=== PATIENT | female | born 1955 | race Caucasian/White ===

== ENCOUNTER 2022-06-24 20:09 | Outpatient (CLI) | payer MEDICARE, SELFPAY | END 2022-06-24 23:59 | disposition home or self-care (01) | LOC: SL 20:09 | PROVIDERS: Visit Provider Nurse Practitioner Family | DX: G47.31 Primary central sleep apnea (principal); R40.0 Somnolence; R06.83 Snoring | CPT/HCPCS: 95811 ==

== ENCOUNTER → 2022-07-23 | Outpatient (CLI) | payer MEDICARE, OTHER, SELFPAY | END | disposition home or self-care (01) | PROVIDERS: Visit Provider Nurse Practitioner Acute Care | DX: G47.31 Primary central sleep apnea (principal) | CPT/HCPCS: 95811 ==

== ENCOUNTER → 2022-08-13 | Outpatient (CLI) | payer MEDICARE, OTHER, SELFPAY | END | disposition home or self-care (01) | LOC: SL 13:56 | PROVIDERS: Visit Provider Nurse Practitioner Acute Care | DX: G47.33 Obstructive sleep apnea (adult) (pediatric) (principal) ==

== ENCOUNTER 2022-08-17 07:58 | Emergency (ER) | payer MEDICARE, OTHER, SELFPAY ==
[2022-08-17 07:59] VITALS: BP 150/101; PULSE 84; RESP 16; TEMP 36.1; O2SAT 96; BMI 23.3
--- NOTE | 2022-08-17 08:09 | RAD_ITS ---
STUDY: X-RAY - UNILATERAL RIBS ( RIGHT ) WITH CHEST REASON FOR EXAM: Female, 66 years old. History of fall. TECHNIQUE - RIBS: 3 view(s) of the ribs. TECHNIQUE - CHEST: Single PA view of the chest. COMPARISON: None. FINDINGS - RIBS: Normal visualized ribs without a demonstrated fracture. FINDINGS - CHEST: Small left pleural effusion with left basilar infiltration and/or atelectasis. Blunting of the right costophrenic angle. Mild increased markings in the peripheral aspect of the right midlung suggestive of scarring. Sternal cerclage wires are present from a prior sternotomy. Prior mitral valve replacement. A left-sided dual-chamber pacemaker is seen. Normal mediastinum and chalo. Normal visualized pulmonary arteries. There is atherosclerotic calcification of the aortic arch with tortuosity. Normal visualized thoracic spine. Normal visualized ribs, clavicles, and shoulders. There is no demonstrated abnormality of the visualized soft tissue structures of the upper abdomen. RAD/Ribs Uni Min 3V w/PA Chest IMPRESSION: RIBS: Normal x-ray examination of the ribs. CHEST: Left pleural effusion with left basilar infiltration and/or atelectasis. Blunting of the right questioning angle. Mild increased markings in the peripheral aspect of the right midlung suggestive of scarring. Electronically Signed: Tyree Mejía MD at 8:46 EST ,
--- NOTE | 2022-08-17 08:09 | RAD_ITS ---
STUDY: X-RAY - LEFT CLAVICLE REASON FOR EXAM: Female, 66 years old. Pain following a fall. TECHNIQUE: 2 view(s) of the clavicle. COMPARISON: None. FINDINGS: Nondisplaced transverse fracture through the midportion of the left clavicle with overriding of the fracture fragments. Normal acromioclavicular articulation. Normal visualized sternoclavicular articulation. Normal visualized pulmonary apex. RAD/Clavicle IMPRESSION: Nondisplaced transverse fracture through the midportion of left clavicle with overriding of the fracture fragments. Electronically Signed: Tyree Mejía MD at 8:44 EST ,
--- NOTE | 2022-08-17 08:09 | RAD_ITS ---
STUDY: X-RAY - LEFT SHOULDER REASON FOR EXAM: Female, 66 years old. Left shoulder pain following a recent fall. TECHNIQUE: 4 view(s) of the shoulder. COMPARISON: None. FINDINGS: Normal glenohumeral articulation. Normal acromioclavicular joint. Normal acromion. Transverse fracture through the midportion of the left clavicle with overlying of the fracture fragments. Normal humeral head and visualized proximal humerus. The soft tissue structures are unremarkable. A left-sided dual-chamber pacemaker is seen. Prior CABG. RAD/Shoulder min 2 Views IMPRESSION: Transverse fracture through the midportion of left clavicle with overlying fracture fragments. Electronically Signed: Tyree Mejía MD at 8:43 EST ,
--- NOTE | 2022-08-17 08:10 | EDS_ITS ---
HPI History of Present Illness Chief Complaint: Fall Informant: patient Narrative Narrative: Patient had mechanical fall off a horse on Wednesday. Landed on her left shoulder. She states she lifted her head up for the fall and never hit her head. She is certain of this. She has no headache. She primarily has pain around the left shoulder. She has been wearing a sling that she used. She also has developed some soreness in the right chest wall. It is down low. Its more with twisting and moving. Of note, she checks her Coumadin at home. Its been running about 1.8-1.6. She has no numbness or tingling. No lower extremity symptoms. No neck pain. No headache. No nausea vomiting fevers or chills. [facility] Medical History (Updated 08/17/22 @ 13:[address] Jose Reeves MD) A-fib Hypertrophic cardiomyopathy Home Medications aspirin 81 mg chewable tablet (Rahul Chewable Low Dose Aspirin) 81 mg PO DAILY 07/08/22 [History Last Taken Unknown] furosemide 40 mg tablet (Lasix) 40 mg PO BID 07/08/22 [History Last Taken Unknown] methimazole 5 mg tablet 2.5 mg PO .COMPLEX 07/08/22 [History Last Taken Unknown] metoprolol succinate 50 mg tablet,extended release 24 hr (Toprol XL) 50 mg PO DAILY 07/08/22 [History Last Taken Unknown] multivitamin 1 tab PO DAILY 07/08/22 [History Last Taken Unknown] pantoprazole 40 mg tablet,delayed release (Protonix) 40 mg PO DAILY 07/08/22 [History Last Taken Unknown] potassium chloride 10 mEq tablet,extended release(part/cryst) 10 meq PO DAILY 07/08/22 [History Last Taken Unknown] warfarin 5 mg tablet 5 mg PO DAILY 07/08/22 [History Last Taken Unknown] tramadol 50 mg tablet 50 mg PO Q6H PRN pain 3 days #10 tabs 08/17/22 [Rx Last Taken Unknown] Allergy/AdvReac Type Severity Reaction Status Date / Time No Known Allergies Allergy Unverified 08/17/22 08:02 Social History Smoking Status: Unknown if ever smoked ROS ROS ED Constitutional Constitutional ED: Denies chills or fever(s) Eyes Eyes: Denies blurry vision or change in vision ENT ENT ED: Denies sore throat Cardiovascular Cardiovascular: Denies chest pain or palpitations Respiratory/Chest Respiratory/Chest: Reports other Details: Right low anterior rib pain. ; Denies cough or dyspnea Gastrointestinal Gastrointestinal: Denies nausea or vomiting Genitourinary Genitourinary ED: Denies hematuria Musculoskeletal Musculoskeletal: Reports arthralgias and other Details: See history of present illness peer Integumentary Denies Abrasions Neurologic Neurologic: Denies paresthesias or weakness Hematologic/Lymphatic Hematologic/Lymphatic: Reports easy bleeding and easy bruising Allergic/Immunologic Allergic/Immunologic ED: Denies urticaria EXAM Physical Exam Const Vital Signs: 08/17/22 07:59 08/17/22 08:07 08/17/22 12:00 Temperature 96.9 F L Temperature Source Temporal Pulse Rate 84 80 Respiratory Rate 16 16 Respiratory Effort Normal Non-Labored Respiratory Depth Normal Respiratory Pattern Normal Blood Pressure 150/101 H Blood Pressure Mean 117 Pulse Ox 96 Oxygen Delivery Method Room Air 08/17/22 14:08 Temperature Temperature Source Pulse Rate 60 Respiratory Rate 16 Respiratory Effort Respiratory Depth Respiratory Pattern Blood Pressure 124/82 H Blood Pressure Mean Pulse Ox 98 Oxygen Delivery Method Positive well nourished and well developed General Appearance ED: well developed and NAD HEENT atraumatic; Negative for trauma Eyes EOMs intact bilaterally Neck full ROM Neck Narrative: No cervical spinal tenderness. General: Negative for tenderness Chest Wall Chest Narrative: Patient has some contusions toward the left anterior shoulder and clavicle area which what is suspicious for a step-off at the mid clavicle. I do not feel any subcutaneous air. There is no tenting of the skin. I also do not feel any subcu air on the right lower rib cage but she does have tenderness there. It hurts a bit to move and take deep breaths. Resp normal respiratory effort and clear to auscultation bilaterally Resp Narrative: Lungs are clear. Cardio regular rhythm GI normal to inspection, nondistended, normoactive bowel sounds and non-tender Back/Spine normal to inspection and no thoracic nor lumbar tenderness Extremity Extremity Narrative: Contusion and bruising around left clavicle. Tenderness to the proximal left humerus also. No tenderness lower down in the arm. No tenderness to right arm or pain with legs. Her gait is normal. Neuro oriented x3 Sensorium / Orientation: alert Psych mental status grossly normal Skin Skin Narrative: Contusions as above MDM MDM MDM Narrative Medical decision making narrative: Patient's rib x-ray shoulder and clavicle looked at by me and read by radiology shows a mid clavicle fracture on the left. X-ray was consistent with may be some scarring and slight left pleural effusion versus atelectasis infiltrate. We discussed case with the patient. Her daughter was also contacted per her wishes. Daughter is concerned about pulmonary embolus because her INR has been a little low at 1.8. We did per proceed with CTA as requested. Happily, this did not show pulmonary embolus. Her INR is up a little bit at 1.9. CBC showed minimally low hemoglobin at 11 2 but normal white count. Electrolytes showed mild elevation of creatinine 1.38 but I have no old to compare to. CTA also showed signs of effusion on both sides. But the patient is not having hypoxia cough or fevers or elevated white count. These effusions could be a little bit from her HOCM as well as need for Lasix. She is on Lasix 40 twice a day. But she is not having symptoms related to this. There is no symptoms of pneumonia. I do not think antibiotics are needed. I think this can be followed. If she develops dyspnea we would pursue this more aggressively. We did try to call the patient's daughter again. But we did not get a pickup likely because she is working. Patient stated she would notify her daughter when she calls back. Lab Data Labs: Laboratory Results - last 24 hr 08/17/22 08/17/22 08/17/22 12:00 12:00 12:00 WBC 6.2 RBC 5.05 Hgb 11.2 L Hct 39.5 MCV 78.2 L MCH 22.2 L MCHC 28.4 L RDW Std Deviation 56.1 H RDW Coeff of Sona 20.7 H Plt Count 242 MPV 9.6 Immature Gran % (Auto) 0.500 Neut % (Auto) 63.7 Lymph % (Auto) 24.7 Alpine % (Auto) 10.0 Eos % (Auto) 0.6 Baso % (Auto) 0.5 Absolute Neuts (auto) 4.0 Absolute Lymphs (auto) 1.53 Nucleated RBC % 0 Anisocytosis 1+ PT 21.1 H INR 1.9 Sodium 138 Potassium 4.0 Chloride 103 Carbon Dioxide 26.0 Anion Gap 9 BUN 32 H Creatinine 1.38 H Estim Creat Clear Calc 35.60 Est GFR (MDRD) Af Amer 49 L Est GFR (MDRD) Non-Af 40 L BUN/Creatinine Ratio 23.2 H Glucose 101 Calcium 9.4 Radiography Diagnostic Testing: Clinical Impression(s) from Imaging Studies Clavicle X-Ray 08/17/22 08:09 IMPRESSION: Nondisplaced transverse fracture through the midportion of left clavicle with overriding of the fracture fragments. Electronically Signed: Tyree Mejía MD at 8:44 EST , Ribs w/Chest X-Ray 08/17/22 08:09 IMPRESSION: RIBS: Normal x-ray examination of the ribs. CHEST: Left pleural effusion with left basilar infiltration and/or atelectasis. Blunting of the right questioning angle. Mild increased markings in the peripheral aspect of the right midlung suggestive of scarring. Electronically Signed: Tyree Mejía MD at 8:46 EST Reading Location ID and State: [id number] / [employer] , Service support , Shoulder X-Ray 08/17/22 08:09 IMPRESSION: Transverse fracture through the midportion of left clavicle with overlying fracture fragments. Electronically Signed: Tyree Mejía MD at 8:43 EST , Chest CTA 08/17/22 11:49 IMPRESSION: No evidence of pulmonary embolism. Bilateral pleural effusions left greater than right with bibasilar infiltration and/or atelectasis is worse at the left lung base. Cardiomegaly. Enlargement of the left atrium. Electronically Signed: Tyree Mejía MD at 13:11 EST , EKG Initial EKG: Comments: EKG done for chest wall trauma read by me shows AV paced rhythm without ectopy. No acute abnormality is noted. No old for comparison. Discharge Plan Triage Chief Complaint: Fall ED Provider: Jose Reeves Dx/Rx/DC Orders Clinical Impression: Fracture of clavicle, left, closed, Fall from horse, Warfarin-induced coagulopathy, Pleural effusion Instructions: ED Fracture, Clavicle Prescriptions: New tramadol 50 mg tablet 50 mg PO Q6H PRN (Reason: pain) 3 Days Qty: 10 0RF No Action warfarin 5 mg tablet 5 mg PO DAILY methimazole 5 mg tablet 2.5 mg PO .COMPLEX Rx Instructions: 2.5 mg orally every other day; furosemide [Lasix] 40 mg tablet 40 mg PO BID metoprolol succinate [Toprol XL] 50 mg tablet extended release 24 hr 50 mg PO DAILY pantoprazole [Protonix] 40 mg tablet,delayed release (DR/EC) 40 mg PO DAILY aspirin [Rahul Chewable Aspirin] 81 mg tablet,chewable 81 mg PO DAILY potassium chloride 10 mEq tablet,ER particles/crystals 10 meq PO DAILY multivitamin Tablet 1 tab PO DAILY Primary Care Provider: Guero Allen Referrals: Guero Allen MD [Primary Care Provider] - 3-5 Days Berto Ortiz DO [Med Staff - Active Staff] - 1 Week Disposition Disposition: Home, Self Care Discharge Date/Time: 08/17/22 14:14
--- NOTE | 2022-08-17 11:49 | EKG12_ITS ---
Test Reason : FALL Blood Pressure : / mmHG Vent. Rate : 081 BPM Atrial Rate : 081 BPM P-R Int : 224 ms QRS Dur : 148 ms QT Int : 420 ms P-R-T Axes : 083 -43 099 degrees QTc Int : 487 ms AV dual-paced rhythm with prolonged AV conduction Biventricular pacemaker detected Abnormal ECG Confirmed by LESLIE ENRIQUEZ, ELENA ([id number]), proposal editor ALONZO MAK ([id number]) on 08/19/2022 8:49:58 AM Referred By: Confirmed By:ELENA NELSON MD
--- NOTE | 2022-08-17 11:49 | CT_ITS ---
STUDY: CTA CHEST REASON FOR EXAM: Female, 66 years old. Patient fell off a horse. Bilateral shoulder pain and rib cage pain. RADIATION DOSAGE (If Supplied By Facility): CTDIvol = ( 8.88 ) mGy, DLP = ( 186.40 ) mGycm TECHNIQUE: The examination was performed with the intravenous administration of IV 100mL Isovue-370. Post-processing of the angiographic images was performed, with multiplanar reformation and 3D reconstruction. Individualized dose optimization techniques were used for this CT. COMPARISON: None. FINDINGS: Normal enhancement of the main pulmonary artery and right and left pulmonary arteries. Normal enhancement of the bilateral peripheral pulmonary arteries. There is no demonstrated pulmonary embolism. Normal thoracic aorta and visualized great vessels. There is no demonstrated aortic dissection. Sternal cerclage wires and vascular clips are present from a prior sternotomy and coronary artery bypass graft procedure (CABG). A dual-chamber pacemaker is seen. There is cardiomegaly with enlargement of the left atrium. There are visualized mediastinal lymph nodes, which are within normal size limits, and with normal morphology. Normal hilar regions. Normal visualized trachea and bronchi. Bibasilar atelectasis and/or infiltrate worse at the left lung base. Mild increased markings in the peripheral aspect of the right upper lobe as well as in the right middle SUGGESTIVE of scarring. There are small bilateral pleural effusions left greater than right. Normal chest wall structures. Increased kyphosis. 50% loss of height of the T8 or T9 vertebrae. Normal visualized upper abdomen. CT/CTA Chest W/WO Contrast IMPRESSION: No evidence of pulmonary embolism. Bilateral pleural effusions left greater than right with bibasilar infiltration and/or atelectasis is worse at the left lung base. Cardiomegaly. Enlargement of the left atrium. Electronically Signed: Tyree Mejía MD at 13:11 EST ,
[2022-08-17 12:00] VITALS: PULSE 80; RESP 16
[2022-08-17 12:06] LABS: Absolute Lymphocyte Count 1.53 X10^3/uL (0.83-4.51); Basophil# 0.03 X10^3/uL; Basophil% 0.5 % (0-1); Eosinophil# 0.04 X10^3/uL; Eosinophils% 0.6 % (0-5); Hematocrit 39.5 % (37-47); Hemoglobin 11.2 g/dL (12.0-15.0); Lymphocyte # 1.53 X10^3/ul (0.83-4.51); Lymphocyte % 24.7 % (19-41); Mean Corp Hgb Conc 28.4 g/dL (32-36); Mean Corpuscular Hgb 22.2 pg (27.0-32.0); Mean Corpuscular Volume 78.2 fL (81-99); Mean Platelet Vol. 9.6 fl (6.2-12.0); Monocyte# 0.62 X10^3/uL; NRBC Flagged by Analyzer 0 % (0-5); Neutrophil # 3.95 X10^3/uL (2.7-7.7); Neutrophil % 63.7 % (47-70); POSITIVE MORPHOLOGY YES; Platelet Count 242 K/mm3 (150-450); RBC Distribution Width CV 20.7 % (11.6-14.6); RBC Distribution Width SD 56.1 fl (35.1-43.9); Red Blood Count 5.05 M/mm3 (4.2-5.4); White Blood Count 6.2 K/mm3 (4.4-11.0)
[2022-08-17 12:08] LABS: Differential Indicated SCAN CRITERIA MET
[2022-08-17 12:13] LABS: International Normalized Ratio 1.9; Prothrombin Time (Protime)PT. 21.1 SECONDS (11.7-14.9)
[2022-08-17 12:18] LABS: Anion Gap 9 (5-15); BUN 32 mg/dL (7-18); BUN/Creat Ratio 23.2 RATIO (10-20); Calcium,Total 9.4 mg/dL (8.5-10.1); Chloride 103 mmol/L (98-107); Creatinine, Serum 1.38 mg/dL (0.55-1.02); EST Glomerular Filtration Rate 40 mL/min (>60); Est Glom Filt Rate - Afr Amer 49 mL/min (>60); Glucose 101 mg/dL (74-106); Sodium Level 138 mmol/L (136-145)
[2022-08-17 12:33] LABS: Anisocytosis 1+
[2022-08-17 14:08] VITALS: BP 124/82; PULSE 60; RESP 16; O2SAT 98
== END 2022-08-17 14:14 | disposition home or self-care (01) ==
PROVIDERS: Emergency Provider Emergency Medicine; PCP Family Medicine; Visit Provider Emergency Medicine
DX: S42.022A Displaced fracture of shaft of left clavicle, initial encounter for closed fracture (principal); I42.2 Other hypertrophic cardiomyopathy; I48.91 Unspecified atrial fibrillation; J90 Pleural effusion, not elsewhere classified; Z79.01 Long term (current) use of anticoagulants; Z79.82 Long term (current) use of aspirin; Z79.899 Other long term (current) drug therapy; W01.0XXA Fall on same level from slipping, tripping and stumbling without subsequent striking against object, initial encounter
CPT/HCPCS: 71101; 71275; 73000; 73030; 80048; 85025; 85610; 93005; 99283; Q9967

== ENCOUNTER → 2022-08-27 | Outpatient (CLI) | payer MEDICARE, OTHER, SELFPAY | END | disposition home or self-care (01) | LOC: SL 10:38 | PROVIDERS: PCP Family Medicine; Visit Provider Family Medicine | DX: Z00.00 Encounter for general adult medical examination without abnormal findings (principal) ==

== ENCOUNTER 2022-09-20 16:35 | Inpatient (IN) | payer MEDICARE, OTHER, SELFPAY ==
[2022-09-20] VITALS (11 sets, daily range): BP systolic 116–129; BP diastolic 60–82; PULSE 79–83; RESP 18–30; TEMP 36.3–36.8; O2SAT 88–98; BMI 25.5; BMI 25.1
--- NOTE | 2022-09-20 16:59 | EKG12_ITS ---
Test Reason : CP Blood Pressure : / mmHG Vent. Rate : 082 BPM Atrial Rate : 080 BPM P-R Int : 000 ms QRS Dur : 144 ms QT Int : 454 ms P-R-T Axes : 000 -55 073 degrees QTc Int : 530 ms Ventricular-paced rhythm Biventricular pacemaker detected Abnormal ECG Confirmed by SERA ENRIQUEZ, JUSTIN ([id number]), video editor ALONZO MAK ([id number]) on 09/21/2022 1:58:59 PM Referred By: ELIZABETH Confirmed By:JUSTIN ZAMORA MD
--- NOTE | 2022-09-20 17:01 | EDS_ITS ---
HPI History of Present Illness Chief Complaint: Chest Pain Informant: patient and family Narrative Narrative: This patient presents with chest pain and a complex medical history of hypertrophic obstructive cardiomyopathy, intermittent A. fib, mechanical mitral heart valve, on Coumadin, prior surgery for left ventricular debulking, atrial scarring, electrophysiology trying to manage atrial fibrillation. She is on Coumadin and checks her levels at home. In mid August she had 3 weeks where her INR ran as low as 1.9. After Viola she finally got it to go up. It went up as high as about 7. It is now down to 4. There has been no external bleeding. Patient presents with right-sided chest pain. In the lateral low aspect since somewhere last night or throughout the night. It does hurt to breathe but it also hurts to lift her arms up move or twist. She has chronic dyspnea that they are trying to manage through medications and adjustment of her pacemaker. But the dyspnea is worse with this pain. Patient also had a fall last month where she had left clavicle fracture. But this is not the area where she is having most of her pain. This has been slowly healing. Patient denies any history of cardiovascular disease, bypass surgery, cardiac stents. Her heart disease has been related to hypertrophic obstructive cardiomyopathy and secondary complications. She sees Dr. Carolina melo at [place] in the [facility]. Patient's really not complaining of any other areas of pain or changes. There has been no new or secondary trauma recently. [facility] Medical History A-fib Collar bone fracture Hypertrophic cardiomyopathy Pacemaker Home Medications aspirin 81 mg chewable tablet (Rahul Chewable Low Dose Aspirin) 81 mg PO DAILY 07/08/22 [History Last Taken Unknown] furosemide 40 mg tablet (Lasix) 40 mg PO BID 07/08/22 [History Last Taken Unknow n] methimazole 5 mg tablet 2.5 mg PO .COMPLEX 07/08/22 [History Last Taken Unknown] metoprolol succinate 50 mg tablet,extended release 24 hr (Toprol XL) 50 mg PO DAILY 07/08/22 [History Last Taken Unknown] multivitamin 1 tab PO DAILY 07/08/22 [History Last Taken Unknown] pantoprazole 40 mg tablet,delayed release (Protonix) 40 mg PO DAILY 07/08/22 [History Last Taken Unknown] potassium chloride 10 mEq tablet,extended release(part/cryst) 10 meq PO DAILY 07/08/22 [History Last Taken Unknown] warfarin 5 mg tablet 5 mg PO DAILY 07/08/22 [History Last Taken Unknown] tramadol 50 mg tablet 50 mg PO Q6H PRN pain 3 days #10 tabs 08/17/22 [Rx Last Taken Unknown] Allergy/AdvReac Type Severity Reaction Status Date / Time No Known Allergies Allergy Unverified 09/20/22 16:35 Surgical History History of hysterectomy Status post spinal disc removal Social History Smoking Status: Former smoker ROS ROS ED Constitutional Constitutional ED: Denies chills or fever(s) Eyes Eyes: Denies change in vision ENT ENT ED: Reports rhinorrhea; Denies sore throat Cardiovascular Cardiovascular: Reports as per HPI and chest pain Respiratory/Chest Respiratory/Chest: Reports dyspnea; Denies cough Gastrointestinal Gastrointestinal: Denies diarrhea, melena, nausea or vomiting Genitourinary Genitourinary ED: Denies hematuria Musculoskeletal Musculoskeletal: Denies arthralgias or myalgias Integumentary Denies rash Neurologic Neurologic: Denies headache(s) Endocrine Endocrinology: Denies polydipsia or polyuria Hematologic/Lymphatic Hematologic/Lymphatic: Reports easy bleeding and easy bruising Allergic/Immunologic Allergic/Immunologic ED: Denies urticaria EXAM Physical Exam Const Vital Signs: 09/20/22 16:36 09/20/22 16:40 09/20/22 17:30 Temperature 97.3 F L Temperature Source Temporal Pulse Rate 80 79 Respiratory Rate 30 H 20 H Respiratory Effort Normal Non-Labored Blood Pressure 119/67 129/66 H Blood Pressure Mean 84 87 Pulse Ox 98 93 Oxygen Delivery Method Room Air Room Air Oxygen Flow Rate (L/min) 09/20/22 18:00 09/20/22 20:26 09/20/22 20:31 Temperature Temperature Source Pulse Rate 80 80 Respiratory Rate 25 H 20 H Respiratory Effort Blood Pressure 121/60 H 122/82 H Blood Pressure Mean 80 95 Pulse Ox 91 88 94 Oxygen Delivery Method Room Air Room Air Nasal Cannula Oxygen Flow Rate (L/min) 2 09/20/22 21:00 Temperature Temperature Source Pulse Rate 83 Respiratory Rate 28 H Respiratory Effort Blood Pressure 118/70 Blood Pressure Mean 86 Pulse Ox 98 Oxygen Delivery Method Nasal Cannula Oxygen Flow Rate (L/min) 2 Positive well nourished Constitutional Narrative: Patient does look like she has increased respiratory rate over her baseline. But she is tolerating this quite well and has saturations around 98 to 100% on room air showing no hypoxia. General Appearance ED: NAD HEENT Denies dry mucous membranes Mouth ED: No dry mucous membranes Mouth: No dry mucous membranes Eyes General Eye ED: Negative for scleral icterus Neck supple and No no JVD Neck Narrative: mild JVD Chest Wall Chest Narrative: Healing left clavicle fracture. She has some chest wall tenderness but she has more pain with motion or breathing then with palpation. I see no skin changes or vesicles. I see no bruising or swelling. Resp Resp Narrative: Respiratory effort and rate are slightly increased. Patient does have some decreased breath sounds toward the right base. There are a few rhonchi but no wheezes. I do not know if this is due to shallow breathing from pain or infiltrative process or bleeding. Auscultation: rhonchi; Negative for wheezes Cardio regular rate and regular rhythm Rate: other Other Details: Patient appears to be paced on the monitor. GI normal to inspection, nondistended, normoactive bowel sounds and soft to palpation Back/Spine no CVA tenderness and no thoracic nor lumbar tenderness Extremity normal to inspection Extremity Narrative: pt states edema is more than normal General Extremety ED: Yes edema General Extremity: edema Neuro oriented x3 Sensorium / Orientation: awake and alert Psych mental status grossly normal Skin no rashes or lesions noted and no wounds MDM MDM MDM Narrative Medical decision making narrative: My independent interpretation of the patient's single view chest x-ray shows bilateral effusions worse on the right. No pneumothorax. Radiology reading shows bilateral effusions with basilar consolidation. CTA of the chest shows no pulmonary embolus. There is sign of effusion congestive heart failure and consolidation in the right upper lobe area that may be inflammatory. Blood work shows minimal elevation of white count which is nonspecific. Hemoglobin minimally low at 10.5. This is not low enough to be causing her symptoms. This is just a very slight drop from her last level. Potassium is little low at 3.3. Creatinine minimally elevated at 1.2. Troponin was high at 1582. But patient has been having pain since yesterday and she has been having increased dyspnea for a few days. BNP was high at 1464. We have a repeat troponin that shows trending down. Her INR was therapeutic at 2.5. She had decreased breath sounds at the base and the effusions. We did do a CTA due to her complex history. Patient has history of reportedly lower INR is recently down to 1.9. Therefore, it is possible that she could have had a PE now causing symptoms or infarct. She also had a very high INR at over 7 so she could have bleeding. For this reason we did do CT. This is looking more like congestive heart failure. There may be inflammatory consolidation but she is not having fevers chills significant cough. She has a minimal elevation of her white count. With her increased edema, elevated BNP, effusions we will give Lasix here. She desatted to 88% sitting in bed so we have her on 2 L now. I have discussed the case with both net maker and our hospitalist. We have reviewed all of the above information. Patient will be admitted. Lab Data Attestation: I reviewed the patient's lab results. Labs: Laboratory Results - last 24 hr 09/20/22 09/20/22 09/20/22 16:35 16:35 16:35 WBC 12.8 H RBC 4.80 Hgb 10.5 L Hct 37.2 MCV 77.5 L MCH 21.9 L MCHC 28.2 L RDW Std Deviation 56.7 H RDW Coeff of Sona 21.1 H Plt Count 237 MPV 9.2 Immature Gran % (Auto) 0.500 Neut % (Auto) 74.1 H Lymph % (Auto) 8.9 L [place] % (Auto) 16.1 H Eos % (Auto) 0.2 Baso % (Auto) 0.2 Absolute Neuts (auto) 9.5 H Absolute Lymphs (auto) 1.13 Nucleated RBC % 0 Differential Comment SCANNED PT INR Sodium 140 Potassium 3.3 L Chloride 106 Carbon Dioxide 26.0 Anion Gap 8 BUN 25 H Creatinine 1.20 H Estim Creat Clear Calc 40.94 Est GFR (MDRD) Af Amer 58 L Est GFR (MDRD) Non-Af 48 L BUN/Creatinine Ratio 20.8 H Glucose 154 H Calcium 8.9 Troponin I High Sens 1582 H* B-Natriuretic Peptide 1464.0 H 09/20/22 09/20/22 16:35 20:00 WBC RBC Hgb Hct MCV MCH MCHC RDW Std Deviation RDW Coeff of Sona Plt Count MPV Immature Gran % (Auto) Neut % (Auto) Lymph % (Auto) [place] % (Auto) Eos % (Auto) Baso % (Auto) Absolute Neuts (auto) Absolute Lymphs (auto) Nucleated RBC % Differential Comment PT 27.1 H INR 2.5 Sodium Potassium Chloride Carbon Dioxide Anion Gap BUN Creatinine Estim Creat Clear Calc Est GFR (MDRD) Af Amer Est GFR (MDRD) Non-Af BUN/Creatinine Ratio Glucose Calcium Troponin I High Sens 1535 H* B-Natriuretic Peptide Radiography Diagnostic Testing: Clinical Impression(s) from Imaging Studies Chest X-Ray 09/20/22 17:06 IMPRESSION: Bilateral pleural effusions larger right with bibasilar consolidation. Electronically Signed: Star Marrero MD at 17:53 EST , Chest CTA 09/20/22 18:57 IMPRESSION: Findings consistent with chronic interstitial changes and superimposed pulmonary interstitial edema with moderate size bilateral pleural effusions and mild bibasilar atelectasis. There is focal consolidation in the right upper lobe possibly inflammatory.. No evidence for pulmonary embolus Electronically Signed: Star Marrero MD at 20:15 EST , EKG Initial EKG: Comments: My independent interpretation was done of the her EKG done for indication of chest pain. This was compared to prior of 17 August 2022. Her EKG shows a paced rhythm with overall rate of 82. I do see 1 PVC. There is some irregular baseline possibly from motion. There are secondary changes related to pacer and bundle branch block but no sign of acute ST elevation. QRS duration and QTc are both long. EKG is similar to her prior as compared. Discharge Plan Dx/Rx/DC Orders Clinical Impression: Congestive heart failure, Non-ST elevation [place] (NSTEMI), Hypoxia, Warfarin- induced coagulopathy Disposition Disposition: Acute Care Hospital [facility]
--- NOTE | 2022-09-20 17:06 | RAD_ITS ---
INDICATION: chest pain EXAMINATION/TECHNIQUE: X-RAY - XR Chest 1 View COMPARISON: None. FINDINGS: Postop change status post median sternotomy and aortic valve replacement. LINES/DEVICES: Biventricular pacer noted on the left with electrodes in satisfactory position. LUNGS: There are bilateral pleural effusions larger on the right and bibasilar consolidation. No pneumothorax. MEDIASTINUM AND CARDIOVASCULAR STRUCTURES: Cardiac silhouette not enlarged. Central airways and mediastinal contour are unremarkable. BONES AND SOFT TISSUES: There is fracture of the medial left clavicle with overlapping of fracture fragments RAD/Chest 1 View (Portable) IMPRESSION: Bilateral pleural effusions larger right with bibasilar consolidation. Electronically Signed: Star Marrero MD at 17:53 EST ,
[2022-09-20] MEDS: traMADol 50 MG Tablet PO (17:07)
[2022-09-20 17:12] LABS: Absolute Lymphocyte Count 1.13 X10^3/uL (0.83-4.51); Absolute Neutrophil Count 9.5 X10^3/uL (2.0-7.7); Basophil# 0.03 X10^3/uL; Basophil% 0.2 % (0-1); Eosinophil# 0.03 X10^3/uL; Eosinophils% 0.2 % (0-5); Hematocrit 37.2 % (37-47); Hemoglobin 10.5 g/dL (12.0-15.0); Lymphocyte # 1.13 X10^3/ul (0.83-4.51); Lymphocyte % 8.9 % (19-41); Mean Corp Hgb Conc 28.2 g/dL (32-36); Mean Corpuscular Hgb 21.9 pg (27.0-32.0); Mean Corpuscular Volume 77.5 fL (81-99); Mean Platelet Vol. 9.2 fl (6.2-12.0); Monocyte# 2.05 X10^3/uL; Monocyte% 16.1 % (0-10); NRBC Flagged by Analyzer 0 % (0-5); Neutrophil # 9.46 X10^3/uL (2.7-7.7); Neutrophil % 74.1 % (47-70); POSITIVE DIFFERENTIAL YES; POSITIVE MORPHOLOGY YES; Platelet Count 237 K/mm3 (150-450); RBC Distribution Width CV 21.1 % (11.6-14.6); RBC Distribution Width SD 56.7 fl (35.1-43.9); White Blood Count 12.8 K/mm3 (4.4-11.0)
[2022-09-20 17:24] LABS: Differential Indicated SCAN CRITERIA MET
[2022-09-20 17:30] LABS: International Normalized Ratio 2.5; Prothrombin Time (Protime)PT. 27.1 SECONDS (11.7-14.9)
[2022-09-20 17:47] LABS: Anion Gap 8 (5-15); BUN 25 mg/dL (7-18); BUN/Creat Ratio 20.8 RATIO (10-20); Calcium,Total 8.9 mg/dL (8.5-10.1); Chloride 106 mmol/L (98-107); EST Glomerular Filtration Rate 48 mL/min (>60); Est Glom Filt Rate - Afr Amer 58 mL/min (>60); Estimated Creatinine Clearance 40.94 ml/min; Glucose 154 mg/dL (74-106); Potassium 3.3 mmol/L (3.5-5.1); Sodium Level 140 mmol/L (136-145); Troponin-I HS (w/2H Reflex) 1582 pg/mL (3.0-54.0)
[2022-09-20 18:01] LABS: Differential Comment SCANNED
--- NOTE | 2022-09-20 18:57 | CT_ITS ---
STUDY: CTA CHEST REASON FOR EXAM: Female, 66 years old. pe RADIATION DOSAGE (If Supplied By Facility): CTDIvol = ( 8.88 ) mGy, DLP = ( 186.40 ) mGycm TECHNIQUE: The examination was performed with the intravenous administration of IV 100mL Isovue-370. Post-processing of the angiographic images was performed, with multiplanar reformation and 3D reconstruction. Individualized dose optimization techniques were used for this CT. COMPARISON: August 17, 2022 FINDINGS: Normal enhancement of the main pulmonary artery and right and left pulmonary arteries. Normal enhancement of the bilateral peripheral pulmonary arteries. There is no demonstrated pulmonary embolism. Normal thoracic aorta and visualized great vessels. There is no demonstrated aortic dissection. The heart is markedly enlarged and there is marked prominence of the left atrial chamber. There is a mitral valve prosthesis noted. Normal mediastinum. Normal hilar regions. Normal visualized trachea and bronchi. The lungs are well expanded. There is diffuse interstitial thickening with emphysematous changes and mild groundglass opacity possibly representing pulmonary interstitial edema. There are moderate-sized bilateral pleural effusions with mild atelectasis in both lower lobes. There is focal consolidation in the right upper lobe Normal pleura. Postsurgical changes status post median sternotomy. Dorsal spine demonstrates degenerative changes chronic wedging of T9 vertebral body Normal visualized upper abdomen. CT/CTA Chest W/WO Contrast IMPRESSION: Findings consistent with chronic interstitial changes and superimposed pulmonary interstitial edema with moderate size bilateral pleural effusions and mild bibasilar atelectasis. There is focal consolidation in the right upper lobe possibly inflammatory.. No evidence for pulmonary embolus Electronically Signed: Star Marrero MD at 20:15 EST ,
[2022-09-20 19:09] LABS: Reflex Troponin-HS? (from REC) Y
[2022-09-20 20:26] LABS: Troponin-I HS 1535 pg/mL (3.0-54.0)
[2022-09-20] MEDS: Furosemide 40 MG/4 ML Vial IV (20:55)
--- NOTE | 2022-09-20 21:29 | HP.PCM.HOS_ITS ---
HPI - General General Date of Admission: 09/20/22 Date of Service: 09/20/22 Chief Complaint: Right rib pain HPI Narrative KELLI DANIEL, is a 66 F with a significant history of HOCM; pacemaker; mechanical mitral valve replacement; central sleep apnea; and atrial fibrillation status post ablation who presents to the emergency department with excruciating right rib pain that started a day before her presentation and has progressively worsened. The pain radiates across her entire ribs to back in a circular pattern pattern. The pain increases with taking a deep breath and moving her arms. Of note patient has had broken left collarbone. Positive her symptoms is dyspnea which increased with mild exertion. Further she reports fatigue. She denies anorexia. She reports increasing swelling of her legs above her baseline. She reported previously she lost weight because she was sick but now she has gained all the weight back. [facility] Medical History A-fib Collar bone fracture Hypertrophic cardiomyopathy Pacemaker Home Medications aspirin 81 mg chewable tablet (Rahul Chewable Low Dose Aspirin) 81 mg PO DAILY 07/08/22 [History Last Taken Unknown] furosemide 40 mg tablet (Lasix) 40 mg PO BID 07/08/22 [History Last Taken Unknown] methimazole 5 mg tablet 2.5 mg PO .COMPLEX 07/08/22 [History Last Taken Unknown] metoprolol succinate 50 mg tablet,extended release 24 hr (Toprol XL) 50 mg PO DAILY 07/08/22 [History Last Taken Unknown] multivitamin 1 tab PO DAILY 07/08/22 [History Last Taken Unknown] pantoprazole 40 mg tablet,delayed release (Protonix) 40 mg PO DAILY 07/08/22 [History Last Taken Unknown] potassium chloride 10 mEq tablet,extended release(part/cryst) 10 meq PO DAILY 07/08/22 [History Last Taken Unknown] warfarin 5 mg tablet 5 mg PO DAILY 07/08/22 [History Last Taken Unknown] tramadol 50 mg tablet 50 mg PO Q6H PRN pain 3 days #10 tabs 08/17/22 [Rx Last Ta shahid Unknown] Allergy/AdvReac Type Severity Reaction Status Date / Time No Known Allergies Allergy Unverified 09/20/22 16:35 Surgical History History of hysterectomy Status post spinal disc removal Social History Smoking Status: Former smoker ROS ROS Narrative Pertinent positives and pertinent negatives as noted in HPI. All other systems were reviewed and are negative Vital Signs Vital Signs Vital Signs: 09/20/22 16:36 09/20/22 16:40 09/20/22 17:30 Temperature 97.3 F L Temperature Source Temporal Pulse Rate 80 79 Respiratory Rate 30 H 20 H Respiratory Effort Normal Non-Labored Blood Pressure 119/67 129/66 H Blood Pressure Mean 84 87 Pulse Ox 98 93 Oxygen Delivery Method Room Air Room Air Oxygen Flow Rate (L/min) 09/20/22 18:00 09/20/22 20:26 09/20/22 20:31 Temperature Temperature Source Pulse Rate 80 80 Respiratory Rate 25 H 20 H Respiratory Effort Blood Pressure 121/60 H 122/82 H Blood Pressure Mean 80 95 Pulse Ox 91 88 94 Oxygen Delivery Method Room Air Room Air Nasal Cannula Oxygen Flow Rate (L/min) 2 09/20/22 21:00 Temperature Temperature Source Pulse Rate 83 Respiratory Rate 28 H Respiratory Effort Blood Pressure 118/70 Blood Pressure Mean 86 Pulse Ox 98 Oxygen Delivery Method Nasal Cannula Oxygen Flow Rate (L/min) 2 Weight Weight: 69.6 kg Body Mass Index (BMI) 25.5 Physical Exam Narrative Physical exam: General: Well-nourished, well-developed. Head: Normocephalic, atraumatic, no tenderness Eyes: Vision is grossly intact. EOMI ENT, no trauma, moist mucous membranes, no rhinorrhea Neck: Nontender, No thyromegaly. CVS: Regular rate and rhythm. S1-S2 present. No murmur, gallop or rub. Respiratory : clear to auscultation bilaterally, chest wall nontender, no wheezing Abdomen: Soft, nontender, nondistended, normal bowel sounds, no masses : Deferred Back: Nontender, no CVA tenderness, no midline spinal tenderness, deformities, step-offs Extremities: Nontender full range of motion, no trauma Skin: Normal color, no trauma, abrasions Neuro: Alert, oriented, cranial nerves II through XII grossly intact. Psychiatry: Normal mood. Normal affect. Not depressed. Not anxious. Results Lab / Micro Data Result Diagrams: 09/20/22 16:35 09/20/22 16:35 Labs: Laboratory Results - last 24 hr 09/20/22 16:35: WBC 12.8 H, RBC 4.80, Hgb 10.5 L, Hct 37.2, MCV 77.5 L, MCH 21.9 L, MCHC 28.2 L, RDW Std Deviation 56.7 H, RDW Coeff of Sona 21.1 H, Plt Count 237, MPV 9.2, Immature Gran % (Auto) 0.500, Neut % (Auto) 74.1 H, Lymph % (Auto) 8.9 L, [place] % (Auto) 16.1 H, Eos % (Auto) 0.2, Baso % (Auto) 0.2, Absolute Neuts (auto) 9.5 H, Absolute Lymphs (auto) 1.13, Nucleated RBC % 0, Differential Comment SCANNED 09/20/22 16:35: Sodium 140, Potassium 3.3 L, Chloride 106, Carbon Dioxide 26.0, Anion Gap 8, BUN 25 H, Creatinine 1.20 H, Estim Creat Clear Calc 40.94, Est GFR (MDRD) Af Amer 58 L, Est GFR (MDRD) Non-Af 48 L, BUN/Creatinine Ratio 20.8 H, Glucose 154 H, Calcium 8.9, Troponin I High Sens 1582 H* 09/20/22 16:35: B-Natriuretic Peptide 1464.0 H 09/20/22 16:35: PT 27.1 H, INR 2.5 09/20/22 20:00: Troponin I High Sens 1535 H* Radiology Impression Chest X-Ray 09/20/22 17:06 IMPRESSION: Bilateral pleural effusions larger right with bibasilar consolidation. Electronically Signed: Star Marrero MD at 17:53 EST , Chest CTA 09/20/22 18:57 IMPRESSION: Findings consistent with chronic interstitial changes and superimposed pulmonary interstitial edema with moderate size bilateral pleural effusions and mild bibasilar atelectasis. There is focal consolidation in the right upper lobe possibly inflammatory.. No evidence for pulmonary embolus Electronically Signed: Star Marrero MD at 20:15 EST Reading Location ID and State: [facility] / [place] , Service support , Assessment & Plan Assessment/Plan (1) Congestive heart failure: (2) Elevated troponin: PLAN: Plan Acute Exacerbation of heart failure with preserved ejection fraction Patient with a history of HOCM. Reportedly last echocardiogram was before June 2022 when patient had had ablation. Reportedly echocardiogram at time showed normal EF. Repeat echocardiogram Place on monitored bed on progressive care unit Weight on admission to the floor; and then daily Strict I&O's Impression of chest x-ray by radiology: Bilateral pleural effusions larger right with bibasilar consolidation. Chest x-ray was independently interpreted and I agree with radiologist interpretation. EKG shows paced rhythm. BNP of 1,464 on presentation. Diuresis with Lasix 40 mg IV twice daily ordered. On home Lasix 40 mg p.o. twic e daily. Transthoracic echocardiogram to evaluate left ventricular wall motion and systolic function. Monitor electrolytes and renal function [place] wrap to bilateral lower extremities Fluid restriction of 1500 mls daily 2 g cardiac diet Elevated high sensitive troponin Troponin on presentation was 1,582 and it trended to 1,535. Trend Per discussion with imaging department and cardiology elevated troponin is likely secondary to pleural effusions. Per cardiology no need to start heparin or Lovenox as patient is on aspirin and warfarin. cardiology consult. Hypokalemia 3.3 on presentation. Replaced. Home dose escalated. Hypothyroidism On methimazole. With exacerbation of heart failure will check TSH. History of mechanical mitral valve replacement INR is therapeutic at 2.5. Coumadin continued. Trend PT/INR. DVT prophylaxis: Not indicated as patient's is on warfarin and Coumadin is therapeutic. Charges/Coding Visit Charges Inpatient E&M: 88273 Init Hosp L3
--- NOTE | 2022-09-20 23:10 | ECHOD_ITS ---
Reason For Study: Dyspnea/SOB Procedure This was a 2D Doppler, Color Flow transthoracic echocardiogram. Myocardial strain analysis was performed in this exam to aid in the assessment of cardiac function. Technically difficult study due to left collarbone fracture and patient sitting upright for comfort. Exam performed portable in patient room. Left Ventricle Normal LV size. Moderate concentric left ventricular hypertrophy. The estimated ejection fraction is 35 %. There is moderate global hypokinesis of the left ventricle. Right Ventricle Normal RV size. ICD or pacer leads identified within the right ventricle. Mild global right ventricular systolic dysfunction. Atria The left atrium is moderately enlarged. The right atrium is mildly enlarged. Mitral Valve Peak transmitral valve gradient 10.6 mmHg. Mean transmitral valve gradient 3.5 mmHg. Stable appearing mechanical mitral valve apparatus. Tricuspid Valve Normal tricuspid valve. Aortic Valve Trisinus/trileaflet aortic valve. Pulmonic Valve Normal pulmonic valve. Mild (1+) pulmonic valve insufficiency. Great Vessels Normal aortic root. The pulmonary artery is normal size. Normal inferior vena cava. Pericardium/Pleural No pericardial effusion. Moderate size left pleural effusion. MMode/2D Measurements & Calculations LVIDd: 4.0 cm IVSd: 1.4 cm Ao root diam: 3.2 cm LVIDs: 3.4 cm LVPWd: 1.4 cm LA dimension: 7.1 cm RVDd: 4.4 cm FS: 15.9 % LAV(MOD-sp4): 119.8 ml LVAd ap4: 29.0 cm2 SV(MOD-sp4): 21.0 ml LVLd ap4: 7.2 cm EDV(MOD-sp4): 92.7 ml EDV(sp4-el): 98.7 ml LVAs ap4: 24.9 cm2 LVLs ap4: 6.8 cm ESV(MOD-sp4): 71.7 ml ESV(sp4-el): 77.1 ml EF(MOD-sp4): 22.6 % EF(sp4-el): 21.8 % SV(sp4-el): 21.5 ml LA A4 area: 35.0 cm2 RA A4 area: 28.0 cm2 Time Measurements MV dec time: 0.17 sec Doppler Measurements & Calculations MV E max timo: 148.5 cm/sec Lat Peak E' Timo: 4.7 cm/sec Med Peak E' Timo: 4.1 cm/sec MV A max timo: 28.2 cm/sec E/E' lat: 31.9 E/E' med: 36.0 MV E/A: 5.3 MV V2 max: 162.7 cm/sec Ao V2 max: 93.9 cm/sec LV V1 max: 78.1 cm/sec MV max P.6 mmHg Ao max P.5 mmHg LV V1 max P.4 mmHg MV V2 mean: 85.0 cm/sec MV mean P.5 mmHg MV V2 VTI: 26.8 cm PA V2 max: 54.6 cm/sec PI dec slope: 233.1 cm/sec2 TR max timo: 318.1 cm/sec TR max P.5 mmHg ECHO/Echo Complete Interpretation Summary Normal LV size. Moderate concentric left ventricular hypertrophy. The estimated ejection fraction is 35 %. There is moderate global hypokinesis of the left ventricle. ICD or pacer leads identified within the right ventricle. The global longitudinal strain is severely abnormal. The global longitudinal st rain = -6.6% (abnormal). Ordering Physician: Thom Stahl Performed By: Kenneth Thakur RCS
[2022-09-20] MEDS: Potassium Chloride Oral Tablet 20 MEQ 40 MEQ PO (23:42)
[2022-09-21] VITALS (8 sets, daily range): BP systolic 97–114; BP diastolic 51–66; PULSE 79–86; RESP 15–20; TEMP 36.7–36.8; O2SAT 94–98
[2022-09-21] MEDS: traMADol 50 MG Tablet PO ×3 (00:52→22:24)
[2022-09-21 01:24] LABS: Troponin-I HS 1472 pg/mL (3.0-54.0)
[2022-09-21] MEDS: 0.9% Saline Lock 10 ML Syringe IV ×2 (04:43→08:04)
[2022-09-21 06:41] LABS: Absolute Lymphocyte Count 1.14 X10^3/uL (0.83-4.51); Absolute Neutrophil Count 11.1 X10^3/uL (2.0-7.7); Basophil# 0.04 X10^3/uL; Basophil% 0.3 % (0-1); Eosinophil# 0.03 X10^3/uL; Eosinophils% 0.2 % (0-5); Hemoglobin 10.4 g/dL (12.0-15.0); Lymphocyte # 1.14 X10^3/ul (0.83-4.51); Lymphocyte % 7.9 % (19-41); Mean Corp Hgb Conc 28.9 g/dL (32-36); Mean Corpuscular Hgb 22.5 pg (27.0-32.0); Mean Corpuscular Volume 77.8 fL (81-99); Mean Platelet Vol. 9.3 fl (6.2-12.0); Monocyte# 2.08 X10^3/uL; Monocyte% 14.4 % (0-10); NRBC Flagged by Analyzer 0 % (0-5); Neutrophil # 11.08 X10^3/uL (2.7-7.7); Neutrophil % 76.7 % (47-70); POSITIVE DIFFERENTIAL YES; POSITIVE MORPHOLOGY YES; Platelet Count 233 K/mm3 (150-450); RBC Distribution Width CV 21.2 % (11.6-14.6); RBC Distribution Width SD 57.3 fl (35.1-43.9); Red Blood Count 4.63 M/mm3 (4.2-5.4); White Blood Count 14.4 K/mm3 (4.4-11.0)
[2022-09-21 06:46] LABS: Differential Indicated SCAN CRITERIA MET
[2022-09-21 06:56] LABS: International Normalized Ratio 2.7; Prothrombin Time (Protime)PT. 28.6 SECONDS (11.7-14.9)
[2022-09-21 07:19] LABS: ALB/GLOB Ratio 0.8 RATIO (0.9-2.4); AST(SGOT) 25 U/L (15-37); Alanine Aminotransfer ALT/SGPT 25 U/L (13-56); Albumin, Serum 3.1 g/dL (3.2-5.0); Alkaline Phosphatase 102 U/L (45-117); Anion Gap 8 (5-15); BUN 23 mg/dL (7-18); BUN/Creat Ratio 20.4 RATIO (10-20); Chloride 107 mmol/L (98-107); Creatinine, Serum 1.13 mg/dL (0.55-1.02); EST Glomerular Filtration Rate 51 mL/min (>60); Est Glom Filt Rate - Afr Amer 62 mL/min (>60); Estimated Creatinine Clearance 43.47 ml/min; Globulin 3.7 g/dL (2.2-4.2); Glucose 122 mg/dL (74-106); Potassium 3.7 mmol/L (3.5-5.1); Protein, Total 6.8 g/dL (6.4-8.2); Sodium Level 139 mmol/L (136-145)
[2022-09-21] MEDS: Potassium Chloride Oral Tablet 20 MEQ 40 MEQ PO (08:03)
[2022-09-21] MEDS: Furosemide 40 MG/4 ML Vial IV ×2 (08:03→16:41)
[2022-09-21] MEDS: Aspirin 81 MG TAB.CHEW PO (08:04)
[2022-09-21] MEDS: Pantoprazole Sodium 40 MG Tablet PO (08:04)
[2022-09-21] MEDS: Methimazole 5 MG Tablet 2.5 MG PO (08:04)
[2022-09-21] MEDS: Multivitamins,Therapeutic Tablet 1 TABLET PO (08:04)
[2022-09-21 08:35] LABS: Differential Comment SCANNED
[2022-09-21 08:36] LABS: Anisocytosis 2+; Hypochromasia 1+; Macrocytosis 1+; Microcytosis 1+
--- NOTE | 2022-09-21 11:50 | CASEMGMT ---
RN CM Face to Face with patient for initial transition planning/care coordination assessment. RN CM introduced self and role at [facility]. Patient lying in bed, alert and oriented. Patient willing to participate in assessment and is able to answer all questions appropriately. Care providers, pharmacy, and demographics verified. Patient wishes to discharge home, denies need for home health at this time. Patient states she has no further needs or concerns at this time. CM to follow for discharge planning needs that may arise. PCP: Alejandro Specialists: Gabby Phillips physicist Preferred Pharmacy: Seth Parrish; [facility] retail at discharge Insurance: [employer], [employer] other Prescription Benefit: yes Living Will/HPOA: none LNOK: daughters Living Arrangements: Patient lives with daughter in a single story home with no steps to enter. Patient states she is independent at home. Transportation: self, daughter DME/HHC: Patient states she has cpap through [facility]. Will monitor for home oxygen at discharge. No previous HHC or SNF. Disposition Plan: Patient to discharge home with family support and follow-up plans in place. Pretty PINEDA, RN, CM
--- NOTE | 2022-09-21 12:49 | PN.HOSP_ITS ---
Subjective Subjective Follow-up for shortness of breath, hypoxia and heart failure exacerbation Objective Data Objective Data Vital Signs: Vital Signs Temp Pulse Resp BP Pulse Ox O2 Del Method O2 Flow Rate 98.3 F 83 18 110/66 94 Nasal Cannula 2 09/21/22 04:41 09/21/22 04:41 09/21/22 04:41 09/21/22 04:41 09/21/22 07:13 09/21/22 07:13 09/21/22 07:13 Oxygen Flow Rate (L/min) 2 Oxygen Delivery Method Nasal Cannula Weight: 151 lb 0.266 oz Body Mass Index (BMI) 25.1 Lab / Micro Data Result Diagrams: 09/21/22 06:15 09/21/22 06:15 Labs: Laboratory Results - last 24 hr 09/20/22 16:35: WBC 12.8 H, RBC 4.80, Hgb 10.5 L, Hct 37.2, MCV 77.5 L, MCH 21.9 L, MCHC 28.2 L, RDW Std Deviation 56.7 H, RDW Coeff of Sona 21.1 H, Plt Count 237 , MPV 9.2, Immature Gran % (Auto) 0.500, Neut % (Auto) 74.1 H, Lymph % (Auto) 8.9 L, Davidson % (Auto) 16.1 H, Eos % (Auto) 0.2, Baso % (Auto) 0.2, Absolute Neuts (auto) 9.5 H, Absolute Lymphs (auto) 1.13, Nucleated RBC % 0, Differential Comment SCANNED 09/20/22 16:35: Sodium 140, Potassium 3.3 L, Chloride 106, Carbon Dioxide 26.0, Anion Gap 8, BUN 25 H, Creatinine 1.20 H, Estim Creat Clear Calc 40.94, Est GFR (MDRD) Af Amer 58 L, Est GFR (MDRD) Non-Af 48 L, BUN/Creatinine Ratio 20.8 H, Glucose 154 H, Calcium 8.9, Troponin I High Sens 1582 H* 09/20/22 16:35: B-Natriuretic Peptide 1464.0 H 09/20/22 16:35: PT 27.1 H, INR 2.5 09/20/22 20:00: Troponin I High Sens 1535 H* 09/20/22 23:58: Troponin I High Sens 1472 H* 09/21/22 06:15: WBC 14.4 H, RBC 4.63, Hgb 10.4 L, Hct 36.0 L, MCV 77.8 L, MCH 22.5 L, MCHC 28.9 L, RDW Std Deviation 57.3 H, RDW Coeff of Sona 21.2 H, Plt Count 233, MPV 9.3, Immature Gran % (Auto) 0.500, Neut % (Auto) 76.7 H, Lymph % (Auto) 7.9 L, Davidson % (Auto) 14.4 H, Eos % (Auto) 0.2, Baso % (Auto) 0.3, Absol brigette Neuts (auto) 11.1 H, Absolute Lymphs (auto) 1.14, Nucleated RBC % 0, Differential Comment SCANNED, Diff Path Review May foll, Hypochromasia 1+, Anisocytosis 2+, Microcytosis 1+, Macrocytosis 1+ 09/21/22 06:15: PT 28.6 H, INR 2.7 09/21/22 06:15: Sodium 139, Potassium 3.7, Chloride 107, Carbon Dioxide 24.0, Anion Gap 8, BUN 23 H, Creatinine 1.13 H, Estim Creat Clear Calc 43.47, Est GFR (MDRD) Af Amer 62, Est GFR (MDRD) Non-Af 51 L, BUN/Creatinine Ratio 20.4 H, Glucose 122 H, Calcium 9.0, Total Bilirubin 3.30 H, AST 25, ALT 25, Alkaline Phosphatase 102, Total Protein 6.8, Albumin 3.1 L, Globulin 3.7, Albumin/Globulin Ratio 0.8 L, TSH 1.00 Radiography Diagnostic Testing: Radiology Impression Chest X-Ray 09/20/22 17:06 IMPRESSION: Bilateral pleural effusions larger right with bibasilar consolidation. Electronically Signed: Star Marrero MD at 17:53 EST , Chest CTA 09/20/22 18:57 IMPRESSION: Findings consistent with chronic interstitial changes and superimposed pulmonary interstitial edema with moderate size bilateral pleural effusions and mild bibasilar atelectasis. There is focal consolidation in the right upper lobe possibly inflammatory.. No evidence for pulmonary embolus Electronically Signed: Star Marrero MD at 20:15 EST Reading Location ID and State: [facility] / [place] , Service support , Echocardiogram 09/20/22 23:10 Interpretation Summary Normal LV size. Moderate concentric left ventricular hypertrophy. The estimated ejection fraction is 35 %. There is moderate global hypokinesis of the left ventricle. ICD or pacer leads identified within the right ventricle. The global longitudinal strain is severely abnormal. The global longitudinal strain = -6.6% (abnormal). Ordering Physician: Thom Stahl Performed By: Kenneth Thakur RCS Physical Exam Narrative Physical exam General: Alert, Oriented x3, Cooperative, BMI 25.1 kg/m? HEENT: Atraumatic, PERRLA, EOMI, Normocephalic Oral: No Gingival or Mucosal Lesions/ Ulcerations Neck: Supple, No JVD, Negative Carotid Bruits Lungs: Air entry diminished in bilateral lung bases. Mild bilateral inspiratory crackles. Cardiovascular: Regular rate, Regular Rhythm, Normal S1, Normal S2, AICD. No murmur. Abdomen: Bowel Sounds Present, Soft, Non Tender, Non-Distended : No renal angle tenderness. No suprapubic tenderness. Extremities: Bilateral lower leg 2+ pitting edema capillary Refill Less than 3 Seconds Skin: No rashes, No breakdown Musculoskeletal: No Tenderness to Palpation of Joints or Extremities, ROM r estricted. Neurological: Cranial nerves II-XII grossly intact, DTR 2+/4, muscle strength 4+/5 at major joints Psych/Mental Status: Normal Affect, Appropriate. Assessment & Plan Assessment/Plan (1) Congestive heart failure: (2) Elevated troponin: PLAN: Plan 1. 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 2D echo is done and shows EF 35% with moderate LVH which has been constant for 4 to 5-year as per the daughter. Patient with a history of HOCM. Reportedly last echocardiogram was before June 2022 when patient had had ablation. Patient follows EP Dr. Sanders in [facility]. On Lasix 40 mg IV twice daily. Heart failure core measures including intake and output, fluid restriction less than 1500 mL, daily weight monitoring, kidney and electrolytes monitoring Chest x-ray and CTA initially reviewed and shows pulmonary edema, chronic interstitial infiltrates/changes in bilateral effusion right more than left. EKG shows paced rhythm. BNP of 1,464 on presentation. 2. Patient might have interstitial lung disease with a smoking history of about 10 years. Patient has appointment with Jessika Duke NP. Will need outpatient PFT. Patient also uses CPAP at home. 3. Elevated high sensitive troponin Troponin on presentation was 1,582 and it trended to 1,535. Systems Security Analyst is consulted. Troponins are high. Patient is on aspirin and warfarin. Hypokalemia 3.3 on presentation. Replaced. Home dose escalated. Hypothyroidism On methimazole. With exacerbation of heart failure will check TSH. History of mechanical mitral valve replacement INR is therapeutic at 2.5. Coumadin continued. Trend PT/INR. DVT prophylaxis: Not indicated as patient's is on warfarin and Coumadin is therapeutic. Total time of the visit including total time spent in counseling or coordination of care, (more than 50% of the total time, spent in obtaining medical information from nurses and other ancillary care providers,explaining to the patient about labs, imaging, diagnosis and management of active complex medical conditions), clinical update given to patient's daughter on phone, review of labs and imaging is 40 minutes. Charges/Coding Visit Charges Inpatient E&M: 36831 Subs Hosp L2
--- NOTE | 2022-09-21 13:21 | CHAPLAIN ---
Type of Pastoral Visit _x__ Initial Visit ___ Follow-up Visit ___ On-call Visit ___ General Patient Visit ___ Spiritual Assessment ___ Family Conference ___ Bereavement ___ Rapid Response ___ Code Blue ___ Other (describe below) Pastoral Care Referral From _x__ Patient ___ Family ___ Nurse ___ Physician ___ Canoe Inspector ___ Braid Pattern Setter ___ Other (describe below) Sacrament/Intervention _x__ Active listening ___ Anointing ___ Yazdanism ___ Bereavement ___ Communion ___ Sumaya exploration ___ ___ Life review ___ Prayer ___ Reconciliation ___ Sacrament of Sick ___ Supportive presence ___ Wedding ___ Other (describe below) Pastoral Comments patient states that she has had medical issues and that this is not new experience; pt states that she got sleeping med and is pretty drowsy but that a prayer would be fine to receive; no other needs identified
[2022-09-21] MEDS: Acetaminophen 325 MG Tablet 650 MG PO (16:40)
[2022-09-22] VITALS (8 sets, daily range): BP systolic 91–121; BP diastolic 47–66; PULSE 80–86; RESP 16–20; TEMP 36.3–36.7; O2SAT 88–95
[2022-09-22 05:52] LABS: Absolute Lymphocyte Count 1.08 X10^3/uL (0.83-4.51); Absolute Neutrophil Count 10.6 X10^3/uL (2.0-7.7); Basophil# 0.05 X10^3/uL; Basophil% 0.4 % (0-1); Eosinophil# 0.11 X10^3/uL; Eosinophils% 0.8 % (0-5); Hematocrit 37.6 % (37-47); Hemoglobin 10.5 g/dL (12.0-15.0); Lymphocyte # 1.08 X10^3/ul (0.83-4.51); Mean Corp Hgb Conc 27.9 g/dL (32-36); Mean Corpuscular Hgb 22.2 pg (27.0-32.0); Mean Corpuscular Volume 79.3 fL (81-99); Mean Platelet Vol. 9.9 fl (6.2-12.0); Monocyte# 1.66 X10^3/uL; Monocyte% 12.2 % (0-10); NRBC Flagged by Analyzer 0 % (0-5); Neutrophil # 10.58 X10^3/uL (2.7-7.7); Neutrophil % 77.9 % (47-70); POSITIVE DIFFERENTIAL YES; POSITIVE MORPHOLOGY YES; Platelet Count 248 K/mm3 (150-450); RBC Distribution Width CV 21.2 % (11.6-14.6); RBC Distribution Width SD 58.4 fl (35.1-43.9); Red Blood Count 4.74 M/mm3 (4.2-5.4); White Blood Count 13.6 K/mm3 (4.4-11.0)
[2022-09-22 05:59] LABS: Differential Indicated SCAN CRITERIA MET
[2022-09-22 06:21] LABS: Anion Gap 8 (5-15); BUN 26 mg/dL (7-18); BUN/Creat Ratio 21.1 RATIO (10-20); Calcium,Total 9.5 mg/dL (8.5-10.1); Chloride 106 mmol/L (98-107); Creatinine, Serum 1.23 mg/dL (0.55-1.02); EST Glomerular Filtration Rate 46 mL/min (>60); Est Glom Filt Rate - Afr Amer 56 mL/min (>60); Estimated Creatinine Clearance 39.94 ml/min; Glucose 107 mg/dL (74-106); Sodium Level 138 mmol/L (136-145)
[2022-09-22 06:45] LABS: Prothrombin Time (Protime)PT. 31.1 SECONDS (11.7-14.9)
[2022-09-22 06:47] LABS: Anisocytosis 2+; Differential Comment SCANNED; Microcytosis 1+
[2022-09-22 06:48] LABS: Macrocytosis 1+; Polychromasia 1+
[2022-09-22 06:49] LABS: Ovalocyte RARE
--- NOTE | 2022-09-22 07:25 | PCM.CONS.C ---
Assessment & Plan Assessment/Plan (1) Congestive heart failure: PLAN: The patient presents for shortness of breath and is noted to have congestive heart failure with reduced ejection fraction. The etiology of the above is likely multifactorial secondary to the hypertrophic cardiomyopathy, and a chronic persistent atrial fibrillation. My recommendation would be to continue the current beta-fausto dose Intravenous diuretics with Lasix Continue spironolactone Consider addition of SGLT2 inhibitor The echocardiogram demonstrates an ejection fraction which is reduced but according to the daughter this is her previous ejection fraction. She follows up at the [facility]. She will be optimized and then further recommendations made (2) History of mitral valve replacement with mechanical valve: PLAN: She does have evidence of mitral valve replacement with a mechanical mitral valve which appears to be functioning well on the recent echocardiogram. She will continue anticoagulation. Recommendations maintaining an INR of 2.5-3.5 (3) Elevated troponin: PLAN: She does have evidence of an elevated troponin which is chronic and appears to have no rise and fall patent. The above is likely secondary to the severe hypertrophy. Would recommend a pharmacologic stress test and if the above is normal I will suggest discharge for outpatient follow-up (4) A-fib: PLAN: Patient has chronic persistent atrial fibrillation with a controlled ventricular response rate she has had an AV kenrick ablation and has a permanent pacemaker. Anticoagulation will be continued. No antiarrhythmics will be administered at this particular time The above was discussed with her daughter. HPI Consult Data Date of Consult: 09/22/22 HPI Narrative HPI Narrative: KELLI DANIEL, is a 66 F who presents with discomfort across her ribs. She does have a complicated cardiac history with hypertrophic cardiomyopathy status post ventricular septal debulking, mitral valve replacement with a mechanical mitral valve, chronic atrial fibrillation status post pacemaker placement and AV kenrick ablation. She has had at least 4 cardioversions according to her daughter. She was previously on sotalol which subsequently failed was switched to Tikosyn and then finally amiodarone. She apparently had an adverse reaction to amiodarone which occurred shortly after she contracted COVID. She has been short of breath with amiodarone. She does not have any known coronary artery disease. She does not have a local body technician/painter and follows up with an marine meteorologist. She presents this time with some shortness of breath mild pedal edema and tightness across her chest. She was noted to have an EKG demonstrating a paced rhythm, chest x-ray demonstrating bilateral pleural effusions right more than left and a CAT scan demonstrating no evidence of pulmonary embolism but with evidence of pleural effusion. Cardiac enzymes were noted to be abnormal but had a flat pattern. At this particular time she appears to doing fairly well though she is minimally short of breath with exertion. She had an echocardiogram performed which demonstrated reduced ejection fraction estimated at 35%. Apparently a consult was called to the body technician/painter prior from the ED on admission but was not relayed to me. [facility] Medical History (Updated 09/22/22 @ 07:[address] Trevor Barajas MD) A-fib Collar bone fracture Hypertrophic cardiomyopathy Pacemaker Home Medications aspirin 81 mg chewable tablet (Rahul Chewable Low Dose Aspirin) 81 mg PO DAILY 07/08/22 [History Last Taken Unknown] furosemide 40 mg tablet (Lasix) 40 mg PO BID 07/08/22 [History Last Taken Unknown] methimazole 5 mg tablet 2.5 mg PO .COMPLEX 07/08/22 [History Last Taken Unknown] metoprolol succinate 50 mg tablet,extended release 24 hr (Toprol XL) 50 mg PO DAILY 07/08/22 [History Last Taken Unknown] multivitamin 1 tab PO DAILY 07/08/22 [History Last Taken Unknown] pantoprazole 40 mg tablet,delayed release (Protonix) 40 mg PO DAILY 07/08/22 [History Last Taken Unknown] potassium chloride 10 mEq tablet,extended release(part/cryst) 10 meq PO DAILY 07/08/22 [History Last Taken Unknown] warfarin 5 mg tablet 5 mg PO DAILY 07/08/22 [History Last Taken Unknown] tramadol 50 mg tablet 50 mg PO Q6H PRN pain 3 days #10 tabs 08/17/22 [Rx Last Taken Unknown] Allergy/AdvReac Type Severity Reaction Status Date / Time No Known Allergies Allergy Unverified 09/20/22 16:35 Surgical History History of hysterectomy History of mitral valve replacement with mechanical valve Status post spinal disc removal Social History Smoking Status: Former smoker ROS Constitutional Constitutional: Denies fever(s) or weight loss Eyes Eyes: Reports systems reviewed and no addt'l complaints, except as documented ENT HEENT: Reports systems reviewed and no addt'l complaints, except as documented Cardiovascular Cardiovascular: Reports dyspnea at rest and dyspnea on exertion; Denies chest pain at rest, chest pain with activity, edema, palpitations or paroxysmal nocturnal dyspnea Respiratory/Chest Respiratory/Chest: Reports dyspnea on exertion, productive cough, shortness of breath at rest and shortness of breath with exertion Gastrointestinal Gastrointestinal: Denies change in bowel habits, nausea, vomiting or weight changes Genitourinary Genitourinary: Denies difficulty urinating Musculoskeletal Musculoskeletal: Denies joint stiffness or muscle weakness Integumentary Integumentary: Denies lesions Neurologic Neurologic: Denies dizziness or syncope Psychiatric Psychiatric: Denies anxiety Endocrine Endocrinology: Denies excessive sweating or fatigue Hematologic/Lymphatic Hematologic/Lymphatic: Denies anemia Allergic/Immunologic Allergic/Immunologic: Denies seasonal rhinorrhea Physical Exam Const alert, oriented x3 and no apparent distress General Appearance: cooperative HEENT hearing grossly normal bilaterally Head and Scalp: atraumatic Eyes EOMs intact bilaterally Neck General: normal visual inspection Chest inspection of chest normal and palpation of chest normal Resp normal respiratory effort Auscultation: clear to auscultation bilaterally and diminished lung sounds bilateral Cardio regular rate, regular rhythm, S1 normal heart sound and S2 normal heart sound Jugular Venous Distention: JVD GI normal to inspection, nondistended, normoactive bowel sounds Extremity normal capillary refill and no pedal edema Peripheral Pulses: Yes pulses 2+ throughout and femoral pulses present Skin no rashes or lesions noted Neuro oriented x3 and CN's II-XII intact bilaterally Psych Appearance: grossly normal and appropriate Risk Stratification Risk Stratification Applicable: No Objective Data Vital Signs: Vital Signs Temp Pulse Resp BP Pulse Ox O2 Del Method O2 Flow Rate 97.9 F 86 18 121/52 H 92 CPAP 3 09/22/22 03:36 09/22/22 03:36 09/22/22 03:36 09/22/22 03:36 09/22/22 03:36 09/22/22 03:42 09/21/22 20:29 Oxygen Flow Rate (L/min) 3 Oxygen Delivery Method CPAP Weight: 149 lb 4.047 oz Body Mass Index (BMI) 25.1 Intake & Output: Intake and Output for Last 24 Hours 09/20/22 09/21/22 09/22/22 23:59 23:59 23:59 Intake Total 200 / 200 Balance 200 / 200 Lab / Micro Data Result Diagrams: 09/22/22 05:37 09/22/22 05:37 Labs: Laboratory Results - last 24 hr 09/21/22 06:15: Differential Comment SCANNED, Diff Path Review January foll, Hypochromasia 1+, Anisocytosis 2+, Microcytosis 1+, Macrocytosis 1+ 09/22/22 05:37: PT 31.1 H, INR 3.0 09/22/22 05:37: WBC 13.6 H, RBC 4.74, Hgb 10.5 L, Hct 37.6, MCV 79.3 L, MCH 22.2 L, MCHC 27.9 L, RDW Std Deviation 58.4 H, RDW Coeff of Sona 21.2 H, Plt Count 248, MPV 9.9, Immature Gran % (Auto) 0.700, Neut % (Auto) 77.9 H, Lymph % (Auto) 8.0 L, Perry % (Auto) 12.2 H, Eos % (Auto) 0.8, Baso % (Auto) 0.4, Absolute Neuts (auto) 10.6 H, Absolute Lymphs (auto) 1.08, Nucleated RBC % 0, Differential Comment SCANNED, Diff Path Review May foll, Polychromasia 1+, Anisocytosis 2+, Microcytosis 1+, Macrocytosis 1+, Ovalocytes RARE 09/22/22 05:37: Sodium 138, Potassium 4.0, Chloride 106, Carbon Dioxide 24.0, Anion Gap 8, BUN 26 H, Creatinine 1.23 H, Estim Creat Clear Calc 39.94, Est GFR (MDRD) Af Amer 56 L, Est GFR (MDRD) Non-Af 46 L, BUN/Creatinine Ratio 21.1 H, Glucose 107 H, Calcium 9.5 Cardiology Labs/Tests 09/22/22 05:37: PT 31.1 H, INR 3.0 09/22/22 05:37: WBC 13.6 H, RBC 4.74, Hgb 10.5 L, Hct 37.6, MCV 79.3 L, MCH 22.2 L, MCHC 27.9 L, Plt Count 248, MPV 9.9, Immature Gran % (Auto) 0.700, Neut % (Auto) 77.9 H, Lymph % (Auto) 8.0 L, Perry % (Auto) 12.2 H, Eos % (Auto) 0.8, Baso % (Auto) 0.4, Absolute Neuts (auto) 10.6 H, Nucleated RBC % 0 09/22/22 05:37: Sodium 138, Potassium 4.0, Chloride 106, Carbon Dioxide 24.0, Anion Gap 8, BUN 26 H, Creatinine 1.23 H, Est GFR (MDRD) Af Amer 56 L, Est GFR (MDRD) Non-Af 46 L, BUN/Creatinine Ratio 21.1 H, Glucose 107 H, Calcium 9.5 Rhythm: EKG: ECHO: Stress Test: Cardiac Cath: PCI: CT Surgery: Holter monitor: EPS: PPM: CXR: Chest CT Scan: Radiography Diagnostic Testing: Radiology Impression Echocardiogram 09/20/22 23:10 Interpretation Summary Normal LV size. Moderate concentric left ventricular hypertrophy. The estimated ejection fraction is 35 %. There is moderate global hypokinesis of the left ventricle. ICD or pacer leads identified within the right ventricle. The global longitudinal strain is severely abnormal. The global longitudinal strain = -6.6% (abnormal). Ordering Physician: Thom Stahl Performed By: Kenneth Thakur RCS
[2022-09-22] MEDS: Aspirin 81 MG TAB.CHEW PO (08:32)
--- NOTE | 2022-09-22 10:49 | DCINST_ITS ---
Discharge Instructions Diet Discharge Diet: 8 Cup Fluid Restriction and 2000 mg Sodium Diet Activity Discharge Activity: Return to Normal Activity Dressing / Incision Call your doctor if you observe: Fever of 101 or Higher, Coldness, Increased Pain, Numbness or Tingling, Change in Color, Inability to urinate, Inability to have a bowel movement, Using more than 1 pad per hour, Shortness of breath, Dizziness, Fainting spells, Swelling in the ankles, Chest pain, Prolonged hiccupping, Increased palpitations (irregular heartbeat), Calf discomfort and Uncontrolled pain Follow Up Care Test Results: Test results from this visit will be discussed in further detail at your follow- up appointment, if applicable. Discharge Plan Admission Admit Date/Time: 09/20/22 21:57 Primary Reason for Your Visit: Acute on chronic HFrEF Attending Provider: Herb Wen Primary Care Provider: Guero Allen Consulting Providers: Kendra Harden ; Thom Stahl ; Sukhdev Rodrigeuz Discharge Orders/Prescriptions Prescriptions: New spironolactone 25 mg Tablet 25 mg PO DAILY Qty: 30 0RF Rx Instructions: Hold for serum potassium more than 5.0 torsemide 20 mg tablet 20 mg PO TID Qty: 90 0RF Rx Instructions: Hold for SBP less than 90 mmHg or feeling dizzy lightheaded Continued warfarin 5 mg tablet 5 mg PO DAILY methimazole 5 mg tablet 2.5 mg PO .COMPLEX Rx Instructions: 2.5 mg orally every other day; metoprolol succinate [Toprol XL] 50 mg tablet extended release 24 hr 50 mg PO DAILY pantoprazole [Protonix] 40 mg tablet,delayed release (DR/EC) 40 mg PO DAILY aspirin [Rahul Chewable Aspirin] 81 mg tablet,chewable 81 mg PO DAILY multivitamin Tablet 1 tab PO DAILY tramadol 50 mg tablet 50 mg PO Q6H PRN (Reason: pain) 3 Days Qty: 10 0RF Discontinued furosemide [Lasix] 40 mg tablet 40 mg PO BID potassium chloride 10 mEq tablet,ER particles/crystals 10 meq PO DAILY Referrals / Follow Up: Trevor Barajas MD [Med Staff - Active Staff] - 10/06/22 2:45 pm Guero Allen MD [Primary Care Provider] - Disposition Disposition (needs filled in before D/C Order can be placed): Home, Self Care
[2022-09-22] MEDS: Acetaminophen 325 MG Tablet 650 MG PO (11:13)
[2022-09-22] MEDS: Multivitamins,Therapeutic Tablet 1 TABLET PO (11:13)
[2022-09-22] MEDS: Pantoprazole Sodium 40 MG Tablet PO (11:13)
[2022-09-22] MEDS: Furosemide 40 MG/4 ML Vial IV (11:16)
[2022-09-22] MEDS: Spironolactone 25 MG Tablet PO (11:17)
[2022-09-22] MEDS: Metoprolol(XL)Succ 50 MG Tablet PO (11:35)
[2022-09-22 12:40] LABS: Pathologist Review Reviewed
--- NOTE | 2022-09-22 14:16 | PCM.DC.SUM ---
Providers Date of Admission: 09/20/22 Date of Discharge: 09/22/22 Primary Care Physician: Dr. Guero Allen MD Consultations 09/20/22 23:10 Consult: Cardiology Routine Consulting Provider: Kendra Harden Reason for Consult: Elevated troponin EMERGENT Consult: No MD Notified: Yes Date Notified: 09/20/22 Time Notified: 22:05 Method of Notification: ED Physician Initiated Reason For Visit: ACUTE ON CHRONIC HEART FAILURE WITH PRESERVE EF Diagnosis Discharge Diagnosis (1) Congestive heart failure: Status: Acute Code(s): I50.9 - Heart failure, unspecified (2) History of mitral valve replacement with mechanical valve: Status: Acute Code(s): Z95.2 - Presence of prosthetic heart valve (3) Elevated troponin: Status: Acute Code(s): R77.8 - Other specified abnormalities of plasma proteins (4) A-fib: Status: Acute Code(s): I48.91 - Unspecified atrial fibrillation Plan 66-year-old female with history of mechanical mitral valve replacement, hokum and pacemaker was admitted with shortness of breath worse with exertion. Patient also had escalating right-sided rib pain that is started day before admission. She also has broken/fracture left collarbone. 1. 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 fib: Patient is being admitted in PCU. 2D echo is done and shows EF 35% with moderate LVH which has been constant for 4 to 5-year as per the daughter. Patient with a history of HOCM. Reportedly last echocardiogram was before June 2022 when patient had had ablation. Patient follows EP Dr. Sanders in [facility]. On Lasix 40 mg IV twice daily. Heart failure core measures including intake and output, fluid restriction less than 1500 mL, daily weight monitoring, kidney and electrolytes monitoring Chest x-ray and CTA initially reviewed and shows pulmonary edema, chronic interstitial infiltrates/changes in bilateral effusion right more than left. EKG shows paced rhythm. BNP of 1,464 on presentation. 09/22: Patient shortness of breath and dyspnea much improved on Lasix IV. At home patient was on Lasix 40 mg oral twice daily and changed to torsemide 20 mg 3 times daily. Started on a spironolactone 12.5 mg daily. Patient's home dose of potassium supplement discontinued because spironolactone added. 2. Patient might have interstitial lung disease with a smoking history of about 10 years. Patient has appointment with Jessika Duke NP. Will need outpatient PFT. Patient also uses CPAP at home. 3. Elevated high sensitive troponin, acute AL ruled out with negative nuclear stress test. Troponin on presentation was 1,582 and it trended to 1,535. Administrative Program Specialist is consulted. Troponins are high. Patient is on aspirin and warfarin. Elevated troponin probably due to acute myocardial injury from heart failure 09/22: Patient was seen by lozenge dough mixer. She had a nuclear pharmacological stress test which has changes of heart surgery/MVP replacement. Did not find any consistent change of reversible ischemia. Hypokalemia 3.3 on presentation. Replaced. Home dose escalated. 09/22: Hypokalemia resolved. Hypothyroidism On methimazole. With exacerbation of heart failure TSH normal 1.0. History of mechanical mitral valve replacement INR is therapeutic at 2.5. Coumadin continued. Trend PT/INR. INR is 3.0. Patient on warfarin, goal INR between 2.5-3.5. DVT prophylaxis: Not indicated as patient's is on warfarin and Coumadin is therapeutic. Discharge medication reconciliation done. Discharge follow-up instructions completed. Discharge process discussed with the patient and all questions were answered to patient's satisfaction. Total time spent, exact 35 minutes on discharge meds reconciliation, examination, coordination of care with nurses and ancillary staff, review of imaging and blood test and discussion with the patient on follow-up instructions. Laboratory Results 09/21/22 06:15: Diff Path Review Reviewed 09/22/22 05:37: PT 31.1 H, INR 3.0 09/22/22 05:37: WBC 13.6 H, RBC 4.74, Hgb 10.5 L, Hct 37.6, MCV 79.3 L, MCH 22.2 L, MCHC 27.9 L, RDW Std Deviation 58.4 H, RDW Coeff of Sona 21.2 H, Plt Count 248, MPV 9.9, Immature Gran % (Auto) 0.700, Neut % (Auto) 77.9 H, Lymph % (Auto) 8.0 L, Spencer % (Auto) 12.2 H, Eos % (Auto) 0.8, Baso % (Auto) 0.4, Absolute Neuts (auto) 10.6 H, Absolute Lymphs (auto) 1.08, Nucleated RBC % 0, Differential Comment SCANNED, Diff Path Review Reviewed, Polychromasia 1+, Anisocytosis 2+, Microcytosis 1+, Macrocytosis 1+, Ovalocytes RARE 09/22/22 05:37: Sodium 138, Potassium 4.0, Chloride 106, Carbon Dioxide 24.0, Anion Gap 8, BUN 26 H, Creatinine 1.23 H, Estim Creat Clear Calc 39.94, Est GFR (MDRD) Af Amer 56 L, Est GFR (MDRD) Non-Af 46 L, BUN/Creatinine Ratio 21.1 H, Glucose 107 H, Calcium 9.5 Medications at Discharge Home Medications aspirin 81 mg chewable tablet (Rahul Chewable Low Dose Aspirin) 81 mg PO DAILY heart health 07/08/22 methimazole 5 mg tablet 2.5 mg PO .COMPLEX thyroid 07/08/22 metoprolol succinate 50 mg tablet,extended release 24 hr (Toprol XL) 50 mg PO DAILY blood pressure 07/08/22 multivitamin 1 tab PO DAILY vitamin 07/08/22 pantoprazole 40 mg tablet,delayed release (Protonix) 40 mg PO DAILY reflux 07/08/22 warfarin 5 mg tablet 5 mg PO DAILY blood thinner 07/08/22 tramadol 50 mg tablet 50 mg PO Q6H PRN pain 3 days #10 tabs 08/17/22 spironolactone 25 mg tablet 25 mg PO DAILY #30 tabs 09/22/22 torsemide 20 mg tablet 20 mg PO TID #90 tabs 09/22/22 Physical Exam Narrative Shortness of breath has resolved. No chest pain or tightness. Patient still has bilateral leg swelling but improving. Physical exam General: Alert, Oriented x3, Cooperative, BMI 25.1 kg/m? HEENT: Atraumatic, PERRLA, EOMI, Normocephalic Oral: No Gingival or Mucosal Lesions/ Ulcerations Neck: Supple, No JVD, Negative Carotid Bruits Lungs: Air entry diminished in bilateral lung bases. No crepitations or rhonchi. Patient on room air 92% pulse ox. Cardiovascular: Regular rate, Regular Rhythm, Normal S1, Normal S2, AICD. No murmur. Abdomen: Bowel Sounds Present, Soft, Non Tender, Non-Distended : No renal angle tenderness. No suprapubic tenderness. Extremities: Bilateral lower leg 2+ pitting edema capillary Refill Less than 3 Seconds Skin: No rashes, No breakdown Musculoskeletal: No Tenderness to Palpation of Joints or Extremities, ROM restricted. Neurological: Cranial nerves II-XII grossly intact, DTR 2+/4, muscle strength 4+/5 at major joints Psych/Mental Status: Normal Affect, Appropriate. Weight / BMI Weight Weight: 149 lb 4.047 oz Body Mass Index (BMI) 25.1 ABG / Lab / Microbiology Data Result Diagrams: 09/22/22 05:37 09/22/22 05:37 Laboratory: Laboratory Results - last 24 hr 09/21/22 06:15: Diff Path Review Reviewed 09/22/22 05:37: PT 31.1 H, INR 3.0 09/22/22 05:37: WBC 13.6 H, RBC 4.74, Hgb 10.5 L, Hct 37.6, MCV 79.3 L, MCH 22.2 L, MCHC 27.9 L, RDW Std Deviation 58.4 H, RDW Coeff of Sona 21.2 H, Plt Count 248, MPV 9.9, Immature Gran % (Auto) 0.700, Neut % (Auto) 77.9 H, Lymph % (Auto) 8.0 L, Spencer % (Auto) 12.2 H, Eos % (Auto) 0.8, Baso % (Auto) 0.4, Absolute Neuts (auto) 10.6 H, Absolute Lymphs (auto) 1.08, Nucleated RBC % 0, Differential Comment SCANNED, Diff Path Review May foll, Polychromasia 1+, Anisocytosis 2+, Microcytosis 1+, Macrocytosis 1+, Ovalocytes RARE 09/22/22 05:37: Sodium 138, Potassium 4.0, Chloride 106, Carbon Dioxide 24.0, Anion Gap 8, BUN 26 H, Creatinine 1.23 H, Estim Creat Clear Calc 39.94, Est GFR (MDRD) Af Amer 56 L, Est GFR (MDRD) Non-Af 46 L, BUN/Creatinine Ratio 21.1 H, Glucose 107 H, Calcium 9.5 D/C Instructions Discharge Diet: 8 Cup Fluid Restriction and 2000 mg Sodium Diet Call your doctor if you observe: Fever of 101 or Higher, Coldness, Increased Pain, Numbness or Tingling, Change in Color, Inability to urinate, Inability to have a bowel movement, Using more than 1 pad per hour, Shortness of breath, Dizziness, Fainting spells, Swelling in the ankles, Chest pain, Prolonged hiccupping, Increased palpitations (irregular heartbeat), Calf discomfort and Uncontrolled pain Meaningful Use Info Meaningful Use Diagnoses (Choose all that apply): CHF CHF ROSALIND/ARB ordered at discharge?: No Reason ROSALIND/ARB not ordered?: Worsening renal dysfunctn Documented LVEF (%): 35 Discharge Plan Admission Admit Date/Time: 09/20/22 21:57 Primary Reason for Your Visit: Acute on chronic HFrEF Attending Provider: Herb Wen Primary Care Provider: Guero Allen Consulting Providers: Kendra Harden ; Thom Stahl ; Sukhdev Rodriguez Discharge Orders/Prescriptions Prescriptions: New spironolactone 25 mg Tablet 25 mg PO DAILY Qty: 30 0RF Rx Instructions: Hold for serum potassium more than 5.0 torsemide 20 mg tablet 20 mg PO TID Qty: 90 0RF Rx Instructions: Hold for SBP less than 90 mmHg or feeling dizzy lightheaded Continued warfarin 5 mg tablet 5 mg PO DAILY methimazole 5 mg tablet 2.5 mg PO .COMPLEX Rx Instructions: 2.5 mg orally every other day; metoprolol succinate [Toprol XL] 50 mg tablet extended release 24 hr 50 mg PO DAILY pantoprazole [Protonix] 40 mg tablet,delayed release (DR/EC) 40 mg PO DAILY aspirin [Rahul Chewable Aspirin] 81 mg tablet,chewable 81 mg PO DAILY multivitamin Tablet 1 tab PO DAILY tramadol 50 mg tablet 50 mg PO Q6H PRN (Reason: pain) 3 Days Qty: 10 0RF Discontinued furosemide [Lasix] 40 mg tablet 40 mg PO BID potassium chloride 10 mEq tablet,ER particles/crystals 10 meq PO DAILY Referrals / Follow Up: Trevor Barajas MD [Med Staff - Active Staff] - 10/06/22 2:45 pm Guero Allen MD [Primary Care Provider] - Disposition Disposition (needs filled in before D/C Order can be placed): Home, Self Care Charges/Coding Visit Charges Inpatient E&M: 62296 Disch Hosp >30min
--- NOTE | 2022-09-22 14:37 | STRESSREP ---
Stress Test Report Pharmacologic myocardial perfusion stress test. 66-year-old lady with a history of abnormal cardiac enzymes and hypertrophic cardiomyopathy status post ablation Resting EKG demonstrates underlying atrial fibrillation with ventricular paced rhythm with a rate of 81 bpm. Resting blood pressure is 112/78 mmHg. 0.4 mg of regadenoson was infused per usual protocol followed by rapid intravenous saline flush injection. Continuous EKG monitoring was performed. The maximum heart rate was 89 bpm which was 58% of max impacted heart rate the maximum workload was 1 metabolic equivalent. At rest there were no ST or T wave changes noted to suggest ischemia and at peak infusion nonspecific ST changes were noted with did not meet the criteria for ischemia. Occasional premature ventricular complexes noted. No clinical angina is noted. The final blood pressure was 112/78 mmHg. Myocardial perfusion protocol. 11.5 mCi of technetium 99m sestamibi was injected at rest. 0.4 mg of regadenoson was infused per usual protocol. At peak infusion 33.1 mCi of technetium 99m sestamibi was injected stress images were obtained stress and rest images were reconstructed and compared in the short axis vertical long and horizontal long axis. Gated images were also obtained. Perfusion SPECT analysis: Review of the stress images demonstrate reduced uptake noted in the lateral wall as well as a portion of the anterior wall. There is also a perfusion defect noted in the apex on the stress and resting images. The septum appears to be thick and well perfused the inferior wall also appears to be well perfused. The resting images demonstrate a similar patent as well. No obvious areas of reversibility are noted to suggest ischemia. A previous lateral wall and anterior infarct cannot be excluded. Gated SPECT analysis: The gated ejection fraction is 29%. Conclusion: Pharmacologic myocardial perfusion stress test with evidence of perfusion defect noted in the lateral wall apex and anterior wall. No obvious ischemia is noted. Reduced ejection fraction.
[2022-09-22 15:30] LABS: Pathologist Review Reviewed
== END 2022-09-22 17:31 | disposition home or self-care (01) | DRG 292 ==
LOC: ED 22:02 → PCU 22:21
PROVIDERS: Admitting Provider Hospitalist; Emergency Provider Emergency Medicine; PCP Family Medicine; Visit Provider Internal Medicine
DX: I50.43 Acute on chronic combined systolic (congestive) and diastolic (congestive) heart failure (principal); I42.1 Obstructive hypertrophic cardiomyopathy; I48.19 Other persistent atrial fibrillation; J84.9 Interstitial pulmonary disease, unspecified; I42.2 Other hypertrophic cardiomyopathy; E87.6 Hypokalemia; E03.9 Hypothyroidism, unspecified; G47.31 Primary central sleep apnea; R09.02 Hypoxemia; R77.8 Other specified abnormalities of plasma proteins; Z95.0 Presence of cardiac pacemaker; Z95.2 Presence of prosthetic heart valve; Z79.01 Long term (current) use of anticoagulants; Z79.82 Long term (current) use of aspirin; Z79.899 Other long term (current) drug therapy; Z86.16 Personal history of COVID-19; Z87.891 Personal history of nicotine dependence
CPT/HCPCS: 36415; 71045; 71275; 78452; 80048; 80053; 83880; 84443; 84484; 85025; 85610; 93005; 93017; 93306; 97802; 99285; A9500; Q9967; A4216; J1940; J2785

== ENCOUNTER → 2022-09-29 | Outpatient (CLI) | payer MEDICARE, OTHER, SELFPAY ==
[2022-09-29 14:08] VITALS: PULSE 79; PULSE 81; PULSE 83; PULSE 88; PULSE 89; O2SAT 90; O2SAT 92; O2SAT 94; O2SAT 95; O2SAT 96; O2SAT 98
--- NOTE | 2022-09-29 14:45 | WT_ITS ---
PSN 6 Minute Walk Test 6 Minute Walk Test 6 Minute Walk Test: 6 Minute Walk Test PSN:6-Minute Walk Test Start: 09/29/22 14:07 Freq: Status: Active Protocol: [id number] Document 09/29/22 14:08 POJORGE ALBERTO (Rec: 09/29/22 14:14 JAMAR [id number]) 6 Minute Walk Test Date Performed 09/29/22 Time Performed 13:45 Height 5 ft 5 in Weight: 63.503 kg Weight in Pounds 140.[address]: Jessika Bauer [employer] Assistive device used: None Pre-test Oxygen Delivery Method Room Air Pulse Ox (%) 92 Pulse Rate (60-100 beats/min) 79 Dyspnea Yosi Scale (0-10) 0 Exertion Yosi Scale (6-20) 6 1st minute Oxygen Delivery Method Room Air Pulse Ox (%) 92 Pulse Rate (60-100 beats/min) 83 2nd minute Oxygen Delivery Method Room Air Pulse Ox (%) 96 Pulse Rate (60-100 beats/min) 88 3rd minute Oxygen Delivery Method Room Air Pulse Ox (%) 95 Pulse Rate (60-100 beats/min) 89 4th minute Oxygen Delivery Method Room Air Pulse Ox (%) 94 Pulse Rate (60-100 beats/min) 89 5th minute Oxygen Delivery Method Room Air Pulse Ox (%) 92 Pulse Rate (60-100 beats/min) 89 6th minute Oxygen Delivery Method Room Air Pulse Ox (%) 90 Pulse Rate (60-100 beats/min) 89 Dyspnea Yosi Scale (0-10) 3 Exertion Yosi Scale (6-20) 14 Post-test Oxygen Delivery Method Room Air Pulse Ox (%) 98 Pulse Rate (60-100 beats/min) 81 Full Laps Walked 16 Partial Lap, Number of Tiles Walked 0 Total Distance Walked (ft) 944 Interpretation Interpretation: The patient was able to ambulate a total of 944 feet over the course of 6 minutes on room air with no assistive devices or breaks. The patient experienced no significant tachycardia, but was noted to have a decreased baseline saturation of 92% that dropped to 90% with ambulation. These findings are consistent with a respiratory limitation exercise tolerance. Recommendations Recommendations: No supplemental oxygen is indicated at this time. However, patient will need to be followed closely given level of desaturation.
== END | disposition home or self-care (01) ==
PROVIDERS: PCP Family Medicine; Referring Provider Nurse Practitioner Acute Care; Visit Provider Nurse Practitioner Acute Care
DX: Z46.89 Encounter for fitting and adjustment of other specified devices (principal); R06.00 Dyspnea, unspecified; G47.31 Primary central sleep apnea
CPT/HCPCS: 94618; 98960; G0463

== ENCOUNTER → 2022-10-05 | Outpatient (CLI) | payer MEDICARE, OTHER, SELFPAY ==
--- NOTE | 2022-10-07 11:13 | PFT ---
INTRODUCTION: The patient is a 67-year-old female that presents for pulmonary function studies secondary to a diagnosis of dyspnea. Respiratory therapy reported good patient effort. Bronchodilators were used during testing. INTERPRETATION: Forced expiration spirometry demonstrates no evidence of a large airways obstructive ventilatory defect. There was a significant response to aerosolized bronchodilators. Spirograms are of good quality and plateau gradually indicating slow emptying of the lungs. Body plethysmography was performed and revealed a decreased TLC to 3.96 L, 79% of predicted, indicative of a mild restrictive ventilatory impairment. Diffusing capacity by single breath CO was within normal limits. IMPRESSION: Mild restrictive ventilatory impairment with preserved diffusing capacity. Significant bronchodilator response was noted.
== END | disposition home or self-care (01) ==
LOC: PSN 09:20
PROVIDERS: PCP Family Medicine; Visit Provider Nurse Practitioner Acute Care
DX: R06.00 Dyspnea, unspecified (principal)
CPT/HCPCS: 94060; 94726; 94729

== ENCOUNTER → 2022-10-30 | Outpatient (CLI) | payer MEDICARE, OTHER, SELFPAY ==
[2022-10-30 17:23] LABS: AST(SGOT) 33 U/L (15-37); Alanine Aminotransfer ALT/SGPT 28 U/L (13-56); Albumin, Serum 3.7 g/dL (3.2-5.0); Alkaline Phosphatase 132 U/L (45-117); Anion Gap 8 (5-15); BUN 40 mg/dL (7-18); BUN/Creat Ratio 23.3 RATIO (10-20); Bilirubin, Direct 0.89 mg/dL (0.00-0.30); Calcium,Total 9.1 mg/dL (8.5-10.1); Chloride 106 mmol/L (98-107); Cholesterol 93 mg/dL (200); Creatinine, Serum 1.72 mg/dL (0.55-1.02); EST Glomerular Filtration Rate 31 mL/min (>60); Est Glom Filt Rate - Afr Amer 38 mL/min (>60); Globulin 3.9 g/dL (2.2-4.2); Glucose 100 mg/dL (74-106); High Density Lipoprotein 43 mg/dL; Magnesium 2.3 mg/dL (1.6-2.6); Potassium 3.9 mmol/L (3.5-5.1); Protein, Total 7.6 g/dL (6.4-8.2); Sodium Level 139 mmol/L (136-145); Triglycerides 154 mg/dL; Very Low Density Lipoprotein 31 mg/dL (5-40)
== END | disposition home or self-care (01) ==
LOC: LAB 16:25
PROVIDERS: PCP Family Medicine; Visit Provider Internal Medicine Cardiovascular Disease
DX: I48.91 Unspecified atrial fibrillation (principal); I42.2 Other hypertrophic cardiomyopathy; I50.9 Heart failure, unspecified; Z95.0 Presence of cardiac pacemaker; Z95.2 Presence of prosthetic heart valve
CPT/HCPCS: 36415; 80048; 80061; 80076; 83735

== ENCOUNTER → 2023-04-14 | Outpatient (CLI) | payer MEDICARE, OTHER, SELFPAY ==
[2023-04-14 10:58] LABS: Absolute Lymphocyte Count 1.45 X10^3/uL (0.83-4.51); Absolute Neutrophil Count 4.6 X10^3/uL (2.0-7.7); Basophil# 0.07 X10^3/uL; Eosinophil# 0.61 X10^3/uL; Eosinophils% 8.3 % (0-5); Hematocrit 41.1 % (37-47); Hemoglobin 12.4 g/dL (12.0-15.0); Lymphocyte # 1.45 X10^3/ul (0.83-4.51); Lymphocyte % 19.7 % (19-41); Mean Corp Hgb Conc 30.2 g/dL (32-36); Mean Corpuscular Hgb 27.5 pg (27.0-32.0); Mean Corpuscular Volume 91.1 fL (81-99); Mean Platelet Vol. 9.4 fl (6.2-12.0); Monocyte% 8.2 % (0-10); NRBC Flagged by Analyzer 0 % (0-5); Neutrophil # 4.58 X10^3/uL (2.7-7.7); Neutrophil % 62.3 % (47-70); Platelet Count 169 K/mm3 (150-450); RBC Distribution Width CV 16.3 % (11.6-14.6); RBC Distribution Width SD 54.8 fl (35.1-43.9); Red Blood Count 4.51 M/mm3 (4.2-5.4); White Blood Count 7.4 K/mm3 (4.4-11.0)
[2023-04-14 11:15] LABS: ALB/GLOB Ratio 1.1 RATIO (0.9-2.4); AST(SGOT) 30 U/L (15-37); Alanine Aminotransfer ALT/SGPT 24 U/L (13-56); Albumin, Serum 3.7 g/dL (3.2-5.0); Alkaline Phosphatase 86 U/L (45-117); Anion Gap 2 (5-15); BUN 33 mg/dL (7-18); BUN/Creat Ratio 23.7 RATIO (10-20); Calcium,Total 9.4 mg/dL (8.5-10.1); Chloride 109 mmol/L (98-107); Creatinine, Serum 1.39 mg/dL (0.55-1.02); EST Glomerular Filtration Rate 40 mL/min (>60); Est Glom Filt Rate - Afr Amer 48 mL/min (>60); Globulin 3.5 g/dL (2.2-4.2); Glucose 96 mg/dL (74-106); Potassium 3.7 mmol/L (3.5-5.1); Protein, Total 7.2 g/dL (6.4-8.2); Sodium Level 142 mmol/L (136-145)
--- NOTE | 2023-04-14 11:41 | RAD_ITS ---
STUDY: XR Chest 2 Views 04/14/2023 11:44 AM REASON FOR EXAM: Female, 67 years old. CHEST PAIN SOB COMPARISON: .8. chest x-ray and CT chest of 09/20/2022. TECHNIQUE: XR Chest 2 Views FINDINGS: There is no demonstrated pleural abnormality. There is a left sided pacemaker batterypack. Prosthetic heart valve. Enlarged heart size. Normal mediastinum. Normal chaol. Prominent appearing increased interstitial lung markings. Normal visualized pulmonary arteries. There is atherosclerotic calcification of the aortic arch with tortuosity. There are diffuse degenerative changes of the visualized thoracic spine. There is degenerative osteoarthritis of the bilateral shoulders. Stable compression deformity midthoracic spine. There are no acute findings of the upper abdomen. RAD/Chest PA and Lateral IMPRESSION: There are no acute findings. Electronically Signed: Daren Gann MD at 14:32 EDT ,
== END | disposition home or self-care (01) ==
LOC: LAB 10:27
PROVIDERS: PCP Family Medicine; Referring Provider Physician Assistant Medical; Visit Provider Physician Assistant Medical
DX: I50.9 Heart failure, unspecified (principal)
CPT/HCPCS: 36415; 71046; 80053; 83880; 85025

== ENCOUNTER → 2023-04-16 | Outpatient (CLI) | payer MEDICARE, OTHER, SELFPAY ==
--- NOTE | 2023-04-16 14:13 | ECHOD_ITS ---
Version 2 Reason For Study: PRIMARY CENTRAL SLEEP APNEA Procedure This was a 2D Doppler, Color Flow transthoracic echocardiogram. Exam performed in department. Left Ventricle Normal LV size. Moderate global left ventricular systolic dysfunction. The estimated ejection fraction is 35 %. Infero-Basal: Severely Hypokinetic. Right Ventricle Normal RV size. ICD or pacer leads identified within the right ventricle. Normal systolic function. Atria The left atrium is severely enlarged. Normal right atrium. Mitral Valve Mean transmitral valve gradient 3.8 mmHg. Stable appearing mechanical mitral valve apparatus. Tricuspid Valve Normal tricuspid valve. Mild (1+) tricuspid valve insufficiency. Pulmonary artery systolic pressure is 46 mmHg. Aortic Valve Trisinus/trileaflet aortic valve. Pulmonic Valve Normal pulmonic valve. Mild pulmonic valve insufficiency identified. Pericardium/Pleural No pericardial effusion. MMode/2D Measurements & Calculations LVIDd: 4.4 cm IVSd: 1.3 cm Ao root diam: 2.8 cm LVIDs: 3.2 cm LVPWd: 0.84 cm FS: 28.2 % LAV(MOD-bp): 149.8 ml LVAd ap4: 25.6 cm2 SV(MOD-sp4): 32.9 ml LAV(MOD-bp) Indexed: 91.0 ml/m2 LVLd ap4: 7.3 cm LAV(MOD-sp2): 158.9 ml EDV(MOD-sp4): 74.2 ml LAV(MOD-sp4): 128.4 ml EDV(sp4-el): 76.1 ml LVAs ap4: 17.3 cm2 LVLs ap4: 6.6 cm ESV(MOD-sp4): 41.2 ml ESV(sp4-el): 38.4 ml EF(MOD-sp4): 44.4 % EF(sp4-el): 49.6 % SV(sp4-el): 37.7 ml LA dimension(2D): 5.7 cm LA A4 area: 32.9 cm2 RA A4 area: 21.8 cm2 TAPSE: 1.1 cm Doppler Measurements & Calculations MV E max flower: 160.7 cm/sec MV V2 max: 158.8 cm/sec Ao V2 max: 111.9 cm/sec MV max P.1 mmHg Ao max P.0 mmHg MV V2 mean: 86.0 cm/sec Ao V2 mean: 75.5 cm/sec MV mean P.8 mmHg Ao mean P.6 mmHg MV V2 VTI: 39.7 cm Ao V2 VTI: 26.4 cm AV (velocity ratio): 0.77 LV V1 max: 84.3 cm/sec PA V2 max: 69.5 cm/sec LV V1 max P.8 mmHg PA V2 mean: 49.1 cm/sec PI dec slope: 205.7 cm/sec2 LV V1 mean P.5 mmHg LV V1 mean: 57.1 cm/sec LV V1 VTI: 20.2 cm TR max flower: 325.5 cm/sec TR max P.4 mmHg ECHO/Echo Complete Interpretation Summary The left atrium is severely enlarged. Normal LV size. Moderate global left ventricular systolic dysfunction. The estimated ejection fraction is 35 %. Pulmonary artery systolic pressure is 46 mmHg. Stable appearing mechanical mitral valve apparatus. Ordering Physician: Jeanette Alexis Referring Physician: Jeanette Alexis Performed By: Naima Hartman RCS
== END | disposition home or self-care (01) ==
LOC: CVS 14:12
PROVIDERS: PCP Family Medicine; Referring Provider Physician Assistant Medical; Visit Provider Physician Assistant Medical
DX: G47.31 Primary central sleep apnea (principal); I42.2 Other hypertrophic cardiomyopathy; I50.9 Heart failure, unspecified; Z95.2 Presence of prosthetic heart valve
CPT/HCPCS: 93306

== ENCOUNTER → 2023-08-24 | Outpatient (CLI) | payer MEDICARE, OTHER, SELFPAY ==
[2023-08-24 15:00] LABS: Hematocrit 41.6 % (37-47); Hemoglobin 12.5 g/dL (12.0-15.0); Mean Corpuscular Hgb 26.5 pg (27.0-32.0); Mean Corpuscular Volume 88.1 fL (81-99); Mean Platelet Vol. 9.4 fl (6.2-12.0); Platelet Count 213 K/mm3 (150-450); RBC Distribution Width SD 54.6 fl (35.1-43.9); Red Blood Count 4.72 M/mm3 (4.2-5.4); White Blood Count 8.1 K/mm3 (4.4-11.0)
[2023-08-24 15:13] LABS: Anion Gap 7 (5-15); BUN 25 mg/dL (7-18); BUN/Creat Ratio 16.8 RATIO (10-20); Calcium,Total 9.2 mg/dL (8.5-10.1); Chloride 108 mmol/L (98-107); Creatinine, Serum 1.49 mg/dL (0.55-1.02); EST Glomerular Filtration Rate 37 mL/min (>60); Est Glom Filt Rate - Afr Amer 45 mL/min (>60); Glucose 82 mg/dL (74-106); Potassium 3.8 mmol/L (3.5-5.1); Sodium Level 139 mmol/L (136-145)
[2023-08-24 15:15] LABS: BNP,B-Type NATRIURETIC PEPTIDE 1040.1 pg/mL (0-100)
== END | disposition home or self-care (01) ==
LOC: PAVLAB 14:49
PROVIDERS: PCP Internal Medicine; Referring Provider Nurse Practitioner Acute Care; Visit Provider Nurse Practitioner Acute Care
DX: I50.22 Chronic systolic (congestive) heart failure (principal); J45.20 Mild intermittent asthma, uncomplicated
CPT/HCPCS: 36415; 80048; 83880; 85027

== ENCOUNTER → 2023-08-25 | Outpatient (CLI) | payer MEDICARE, OTHER, SELFPAY ==
[2023-08-25 12:10] LABS: Thyroid Stim Hormone (TSH) 2.69 uIU/mL (0.358-3.74)
[2023-08-27 07:08] LABS: Thyroglobulin Antibody < 1.0 IU/mL (0.0-0.9); Thyroid Peroxidase AB 23 IU/mL (0-34); Thyroid Stim Immunoglob <0.10 IU/L (0.00-0.55)
== END | disposition home or self-care (01) ==
PROVIDERS: Nurse Practitioner Acute Care; PCP Internal Medicine; Referring Provider Physician Assistant Medical; Visit Provider Physician Assistant Medical
DX: I50.22 Chronic systolic (congestive) heart failure (principal); R06.00 Dyspnea, unspecified
CPT/HCPCS: 36415; 84443; 84445; 86376; 86800

== ENCOUNTER → 2023-09-02 | Outpatient (CLI) | payer MEDICARE, OTHER, SELFPAY ==
--- NOTE | 2023-09-02 14:00 | BI_ITS ---
MAMMOGRAPHY - BILATERAL SCREENING REASON FOR EXAM: Female, 67 years old. Routine annual screening examination. PERTINENT HISTORY: Grandmother with breast cancer. TECHNIQUE: Digital bilateral breast sloane (3D mammographic acquisition) in the CC and MLO projections. 2-D mediolateral oblique (MLO) and craniocaudad (CC) views of both breasts were obtained. CAD: Full Field Digital Mammography with Computer Added Detection was performed. COMPARISON: Comparison is made with prior outside examination of July 14, 2021. FINDINGS: Breast Composition: There are scattered areas of fibroglandular density. There are no dominant masses or suspicious calcifications. A pacemaker battery pack is seen in the left axilla. No other significant abnormalities are identified. There has been no significant change since the prior study. BI/SCRN MAMM (CAD)W/SLOANE BILAT IMPRESSION: Stable bilateral screening mammogram. Yearly follow-up mammogram recommended. (A) ASSESSMENT CATEGORY: BIRADS Category 2: Benign. A letter regarding these results will be sent to the patient by the facility within 30 days. Approximately 10% of breast cancers are not detected by mammography. A normal mammogram should not delay biopsy of a clinically suspicious abnormality. [id number] Electronically Signed: Tyree Mejía MD at 14:44 EST ,
== END | disposition home or self-care (01) ==
LOC: OPBI 13:59
PROVIDERS: PCP Internal Medicine; Referring Provider Internal Medicine; Visit Provider Internal Medicine
DX: Z12.31 Encounter for screening mammogram for malignant neoplasm of breast (principal)
CPT/HCPCS: 77063; 77067

== ENCOUNTER → 2023-09-27 | Outpatient (CLI) | payer MEDICARE, OTHER, SELFPAY ==
--- NOTE | 2023-09-27 13:17 | ECHOD_ITS ---
Reason For Study: Dyspnea/SOB Procedure This was a 2D Doppler, Color Flow transthoracic echocardiogram. Exam performed in department. Left Ventricle Normal LV size. The estimated ejection fraction is 35 %. No regional wall motion abnormalities noted. Right Ventricle Normal RV size. ICD or pacer leads identified within the right ventricle. Normal systolic function. Atria The left atrium is severely enlarged. Normal right atrium. Mitral Valve Stable appearing mechanical mitral valve apparatus. Tricuspid Valve Normal tricuspid valve. Mild to moderate (1-2+) tricuspid valve insufficiency. Pulmonary artery systolic pressure is 52 mmHg. Mild pulmonary hypertension. Aortic Valve Trisinus/trileaflet aortic valve. Pulmonic Valve Normal pulmonic valve. Mild (1+) pulmonic valve insufficiency. Great Vessels Normal aortic root. The pulmonary artery is normal size. Normal inferior vena cava. Pericardium/Pleural No pericardial effusion. MMode/2D Measurements & Calculations LVIDd: 5.5 cm IVSd: 0.96 cm Ao root diam: 3.2 cm LVIDs: 4.5 cm LVPWd: 0.88 cm LA dimension: 5.4 cm RVDd: 4.9 cm FS: 19.4 % LAV(MOD-bp): 128.0 ml LVAd ap4: 29.8 cm2 SV(MOD-sp4): 42.5 ml LAV(MOD-bp) Indexed: 77.7 ml/m2 LVLd ap4: 8.1 cm LAV(MOD-sp2): 115.8 ml EDV(MOD-sp4): 93.8 ml LAV(MOD-sp4): 141.9 ml EDV(sp4-el): 93.2 ml LVAs ap4: 21.5 cm2 LVLs ap4: 7.6 cm ESV(MOD-sp4): 51.4 ml ESV(sp4-el): 51.6 ml EF(MOD-sp4): 45.3 % EF(sp4-el): 44.6 % SV(sp4-el): 41.6 ml LA A4 area: 35.5 cm2 Time Measurements MV dec time: 0.19 sec Doppler Measurements & Calculations MV E max timo: 126.2 cm/sec Lat Peak E' Timo: 3.3 cm/sec Med Peak E' Timo: 3.5 cm/sec MV A max timo: 16.2 cm/sec E/E' lat: 38.5 E/E' med: 35.9 MV E/A: 7.8 MV V2 max: 125.4 cm/sec MV P1/2t max timo: 125.4 cm/sec Ao V2 max: 96.0 cm/sec MV max P.3 mmHg MV P1/2t: 71.7 msec Ao max P.7 mmHg MV V2 mean: 63.0 cm/sec Ao V2 mean: 60.3 cm/sec MV mean P.0 mmHg MV dec slope: 512.0 cm/sec2 Ao mean P.7 mmHg MV V2 VTI: 26.5 cm MVA(P1/2t): 3.1 cm2 Ao V2 VTI: 16.2 cm AV (velocity ratio): 0.92 LV V1 max: 71.0 cm/sec PA V2 max: 56.1 cm/sec PI end-d timo: 175.0 cm/sec LV V1 max P.0 mmHg LV V1 mean P.92 mmHg LV V1 mean: 43.8 cm/sec LV V1 VTI: 15.0 cm TR max timo: 351.6 cm/sec TR max P.4 mmHg ECHO/Echo Complete Interpretation Summary Normal LV size. The estimated ejection fraction is 35 %. The left atrium is severely enlarged. Mild to moderate (1-2+) tricuspid valve insufficiency. Pulmonary artery systolic pressure is 52 mmHg. Mild pulmonary hypertension. Stable appearing mechanical mitral valve apparatus. Ordering Physician: Jeanette Alexis Referring Physician: Jenelle Barakat Performed By: Kenneth Thakur RCS
== END | disposition home or self-care (01) ==
LOC: CVS 13:16
PROVIDERS: PCP Internal Medicine; Referring Provider Physician Assistant Medical; Visit Provider Physician Assistant Medical
DX: R06.02 Shortness of breath (principal); I42.2 Other hypertrophic cardiomyopathy
CPT/HCPCS: 93306

== ENCOUNTER → 2023-10-29 | Outpatient (CLI) | payer MEDICARE, OTHER, SELFPAY ==
[2023-10-29 10:13] LABS: Anion Gap 5 (5-15); BUN 33 mg/dL (7-18); BUN/Creat Ratio 21.2 RATIO (10-20); Chloride 108 mmol/L (98-107); Creatinine, Serum 1.56 mg/dL (0.55-1.02); EST Glomerular Filtration Rate 35 mL/min (>60); Est Glom Filt Rate - Afr Amer 42 mL/min (>60); Glucose 106 mg/dL (74-106); Sodium Level 143 mmol/L (136-145)
[2023-10-29 11:01] LABS: AST(SGOT) 31 U/L (15-37); Alanine Aminotransfer ALT/SGPT 30 U/L (13-56); Albumin, Serum 3.9 g/dL (3.2-5.0); Alkaline Phosphatase 100 U/L (45-117); Bilirubin, Direct 0.43 mg/dL (0.00-0.30); Cholesterol 135 mg/dL (200); Globulin 3.8 g/dL (2.2-4.2); High Density Lipoprotein 60 mg/dL; Protein, Total 7.7 g/dL (6.4-8.2); Triglycerides 98 mg/dL; Very Low Density Lipoprotein 20 mg/dL (5-40)
== END | disposition home or self-care (01) ==
LOC: LAB 09:20
PROVIDERS: Physician Assistant Medical; PCP Internal Medicine; Referring Provider Internal Medicine Cardiovascular Disease; Visit Provider Internal Medicine Cardiovascular Disease
DX: E78.00 Pure hypercholesterolemia, unspecified (principal); I42.2 Other hypertrophic cardiomyopathy; I50.9 Heart failure, unspecified; Z95.2 Presence of prosthetic heart valve
CPT/HCPCS: 36415; 80048; 80061; 80076

== ENCOUNTER → 2023-11-25 | Outpatient (CLI) | payer MEDICARE, OTHER, SELFPAY ==
[2023-11-25 13:10] LABS: BNP,B-Type NATRIURETIC PEPTIDE 503.7 pg/mL (0-100)
[2023-11-25 13:39] LABS: Free T3 2.6 pg/mL (2.18-3.98); T4 Free Direct 1.15 ng/dL (0.76-1.46); Thyroid Stim Hormone (TSH) 1.43 uIU/mL (0.358-3.74)
[2023-11-25 13:49] LABS: Anion Gap 8 (5-15); BUN 34 mg/dL (7-18); Calcium,Total 9.6 mg/dL (8.5-10.1); Chloride 104 mmol/L (98-107); Creatinine, Serum 1.89 mg/dL (0.55-1.02); EST Glomerular Filtration Rate 28 mL/min (>60); Est Glom Filt Rate - Afr Amer 34 mL/min (>60); Glucose 83 mg/dL (74-106); Potassium 3.9 mmol/L (3.5-5.1); Sodium Level 139 mmol/L (136-145)
== END | disposition home or self-care (01) ==
LOC: LAB 11:33
PROVIDERS: Internal Medicine Endocrinology, Diabetes & Metabolism; PCP Internal Medicine; Referring Provider Physician Assistant Medical; Visit Provider Physician Assistant Medical
DX: I50.22 Chronic systolic (congestive) heart failure (principal); I42.2 Other hypertrophic cardiomyopathy; E05.90 Thyrotoxicosis, unspecified without thyrotoxic crisis or storm; Z51.81 Encounter for therapeutic drug level monitoring; Z79.899 Other long term (current) drug therapy
CPT/HCPCS: 80048; 83880; 84439; 84443; 84481

== ENCOUNTER → 2024-01-17 | Outpatient (CLI) | payer MEDICARE, OTHER, SELFPAY ==
[2024-01-17 17:20] LABS: Anion Gap 6 (5-15); BUN 46 mg/dL (7-18); BUN/Creat Ratio 26.6 RATIO (10-20); Calcium,Total 9.2 mg/dL (8.5-10.1); Chloride 106 mmol/L (98-107); Creatinine, Serum 1.73 mg/dL (0.55-1.02); EST Glomerular Filtration Rate 31 mL/min (>60); Est Glom Filt Rate - Afr Amer 38 mL/min (>60); Glucose 145 mg/dL (74-106); Potassium 3.7 mmol/L (3.5-5.1); Sodium Level 139 mmol/L (136-145)
[2024-01-17 17:24] LABS: AST(SGOT) 30 U/L (15-37); Alanine Aminotransfer ALT/SGPT 29 U/L (13-56); Albumin, Serum 3.5 g/dL (3.2-5.0); Alkaline Phosphatase 80 U/L (45-117); Bilirubin, Direct 0.46 mg/dL (0.00-0.30); Cholesterol 112 mg/dL (200); Globulin 3.2 g/dL (2.2-4.2); High Density Lipoprotein 53 mg/dL; Protein, Total 6.7 g/dL (6.4-8.2); Triglycerides 88 mg/dL; Very Low Density Lipoprotein 18 mg/dL (5-40)
== END | disposition home or self-care (01) ==
LOC: LAB 16:03
PROVIDERS: Nurse Practitioner Family; PCP Internal Medicine; Referring Provider Physician Assistant Medical; Visit Provider Physician Assistant Medical
DX: E78.00 Pure hypercholesterolemia, unspecified (principal); E05.90 Thyrotoxicosis, unspecified without thyrotoxic crisis or storm; N28.9 Disorder of kidney and ureter, unspecified; Z51.81 Encounter for therapeutic drug level monitoring; Z79.01 Long term (current) use of anticoagulants; Z79.899 Other long term (current) drug therapy
CPT/HCPCS: 36415; 80048; 80061; 80076

== ENCOUNTER → 2024-02-22 | Outpatient (CLI) | payer MEDICARE, OTHER, SELFPAY ==
[2024-02-22 16:57] LABS: Free T3 2.2 pg/mL (2.18-3.98); T4 Free Direct 1.17 ng/dL (0.76-1.46); Thyroid Stim Hormone (TSH) 0.67 uIU/mL (0.358-3.74)
== END | disposition home or self-care (01) ==
LOC: LAB 15:27
PROVIDERS: PCP Internal Medicine; Referring Provider Internal Medicine Endocrinology, Diabetes & Metabolism; Visit Provider Internal Medicine Endocrinology, Diabetes & Metabolism
DX: E05.90 Thyrotoxicosis, unspecified without thyrotoxic crisis or storm (principal); E04.2 Nontoxic multinodular goiter
CPT/HCPCS: 36415; 84439; 84443; 84481

== ENCOUNTER 2024-04-10 12:22 | Outpatient (RCR) | payer MEDICARE, OTHER, SELFPAY ==
--- NOTE | 2024-04-10 13:01 | HP.PTEVAL_ITS ---
Patient's Visit Information Visit Information Visit Information: KELLI DANIEL is a 68 year old F referred to Physical Therapy by Dr. Roseline Barakat MD with a diagnosis of dizzyness/giddiness.. Date of Evaluation: 04/10/24 Physical Therapist: Ady Tran, DPT, OCS, CSCS Visit Plan Plan: no skilled PT required, not vestibular in nature at this time. Pt to monitor dizzyness for return and let doctor /director operating room know and ER if serious. Subjective Subjective: I have vertigo. Has happeened many times. This latest was a couple weeks ago, reading a book in [employer] and moving head. Spun a lot and crawled off onto floor to bathroom. Spinning lasted for two hours, took meclizine and went away. Has not had it previous to that for a while. Has not happened since. Going to [place] in two weeks and does not wish it to happen again. Happened about every other month or so, sometimes more brief. Sleep is Ok Not employed. Basic ADLs are I. Hobbies: none. 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 Objective Objective: Walks normal into PT and trasnfers easily without UE. cervical and UE AROM WFL and without deficits. strength symmetrical and 4-/5. - B hallpike yanet - roll test. Oculomotor: no nystagmus with gaze or head shake - head thrust - ocular tilt - skew eye deviation. normal pursuit and saccades normal VOR H and V No dizzyness today. Balance/Special Test Scores Functional Gait Assessment Score: 28 % Disability: 6.6700 Dizziness Score: 10 Anticipated Interventions Text: Thank you for the opportunity to evaluate your patient. For Medicare and Medicare HMO plans, please review the plan of care and approve it. It will need to be FAXED BACK to us at [phone] for Medicare purposes. For Medicare only, by signing this I certify the plan of care. Please let me know if there are questions or concerns regarding this plan of care. Physician Signature: Date:
== END 2024-04-10 19:00 | disposition home or self-care (01) ==
LOC: PT 12:22
PROVIDERS: PCP Internal Medicine; Referring Provider Internal Medicine; Visit Provider Internal Medicine
DX: R42 Dizziness and giddiness (principal)
CPT/HCPCS: 97161

== ENCOUNTER → 2024-05-16 | Outpatient (CLI) | payer MEDICARE, OTHER, SELFPAY ==
[2024-05-16 16:40] LABS: Hematocrit 39.2 % (37-47); Hemoglobin 12.5 g/dL (12.0-15.0); Mean Corp Hgb Conc 31.9 g/dL (32-36); Mean Platelet Vol. 10.4 fl (6.2-12.0); Platelet Count 165 K/mm3 (150-450); RBC Distribution Width CV 15.8 % (11.6-14.6); RBC Distribution Width SD 53.3 fl (35.1-43.9); Red Blood Count 4.31 M/mm3 (4.2-5.4); White Blood Count 6.2 K/mm3 (4.4-11.0)
[2024-05-16 16:52] LABS: Protein, Urine (Random) 10.9 mg/dL (<11.9); Protein:Creat Ratio 132 mg/g CRE (0-200)
[2024-05-16 16:54] LABS: Albumin, Serum 3.5 g/dL (3.2-5.0); BUN 46 mg/dL (7-18); BUN/Creat Ratio 25.4 RATIO (10-20); Chloride 104 mmol/L (98-107); Creatinine, Serum 1.81 mg/dL (0.55-1.02); EST Glomerular Filtration Rate 29 mL/min (>60); Est Glom Filt Rate - Afr Amer 36 mL/min (>60); Glucose 111 mg/dL (74-106); Potassium 3.5 mmol/L (3.5-5.1); Sodium Level 137 mmol/L (136-145)
== END | disposition home or self-care (01) ==
LOC: LAB 15:50
PROVIDERS: PCP Internal Medicine; Referring Provider Internal Medicine Nephrology; Visit Provider Internal Medicine Nephrology
DX: N18.32 Chronic kidney disease, stage 3b (principal)
CPT/HCPCS: 36415; 80069; 82570; 84156; 85027

== ENCOUNTER → 2024-05-23 | Outpatient (CLI) | payer MEDICARE, OTHER, SELFPAY | END | disposition home or self-care (01) | LOC: SL 09:35 | PROVIDERS: PCP Internal Medicine; Referring Provider Nurse Practitioner Acute Care; Visit Provider Nurse Practitioner Acute Care | DX: G47.31 Primary central sleep apnea (principal) | CPT/HCPCS: 98960; G0463 ==

== ENCOUNTER → 2024-06-06 | Outpatient (CLI) | payer MEDICARE, OTHER, SELFPAY ==
--- NOTE | 2024-06-06 14:08 | US_ITS ---
INDICATION: CKD3 EXAMINATION: Ultrasound US Kidney(s) complete (eg, kidneys and bladder) TECHNIQUE: Arizmendi scale and color doppler images were obtained of the kidneys. COMPARISON: FINDINGS: RIGHT KIDNEY: 8.7 x 4.2 x 3.5 cm. The cortex is 7 mm. There is no hydronephrosis. No shadowing calculus, focal lesion or perinephric collection is demonstrated. LEFT KIDNEY: 8.9 x 4.8 x 4.6 cm the cortex is 11 mm.. There is no hydronephrosis. No shadowing calculus, focal lesion or perinephric collection is demonstrated. URINARY BLADDER: Partially distended measuring 76 cc.. US/Kidney and Bladder IMPRESSION: No acute pathology. Electronically Signed: Jorge Caruso DO at 19:36 EDT ,
== END | disposition home or self-care (01) ==
LOC: US 14:07
PROVIDERS: PCP Internal Medicine; Referring Provider Internal Medicine Nephrology; Visit Provider Internal Medicine Nephrology
DX: N18.32 Chronic kidney disease, stage 3b (principal)
CPT/HCPCS: 76770

== ENCOUNTER → 2024-07-27 | Outpatient (CLI) | payer MEDICARE, OTHER, SELFPAY ==
[2024-07-27 17:17] LABS: Free T3 2.8 pg/mL (2.18-3.98); T4 Free Direct 1.29 ng/dL (0.76-1.46); Thyroid Stim Hormone (TSH) 0.775 uIU/mL (0.358-3.740)
== END | disposition home or self-care (01) ==
LOC: LAB 15:22
PROVIDERS: PCP Internal Medicine; Referring Provider Internal Medicine Endocrinology, Diabetes & Metabolism; Visit Provider Internal Medicine Endocrinology, Diabetes & Metabolism
DX: E05.90 Thyrotoxicosis, unspecified without thyrotoxic crisis or storm (principal)
CPT/HCPCS: 36415; 84439; 84443; 84481

== ENCOUNTER → 2024-09-14 | Outpatient (CLI) | payer MEDICARE, OTHER, SELFPAY ==
--- NOTE | 2024-09-14 13:58 | US_ITS ---
STUDY: THYROID ULTRASOUND REASON FOR EXAM: Female, 68 years old. Palpably enlarged thyroid TECHNIQUE: Ultrasound evaluation of the thyroid was performed with real-time and static so-scale imaging. COMPARISON: None. FINDINGS: RIGHT LOBE: The right lobe of the thyroid gland measures 4.7 x 1.7 x 2.0 cm. There is a heterogeneous echotexture. There are no demonstrated solid, cystic or complex lesions. LEFT LOBE: The left lobe of the thyroid gland measures 4.1 x 1.5 x 1.8 cm. There is a heterogeneous echotexture. There is a solid and cystic 0.5 x 0.5 x 0.4 cm well-defined nodule This nodule is mixed cystic and solid, anechoic, [id number], smoothly marginated and contains no echogenic foci. TI-RADS points: 1. TI-RADS category: TR1. This nodule is benign and no FNA or follow-up is necessary. ISTHMUS: The isthmus measures 0.5 cm. The regional lymph nodes are normal. Incidental note is made of peripheral calcifications in the left carotid bulb and ICA US/Thyroid IMPRESSION: Normal-sized heterogeneous thyroid gland with a complex solid and cystic subcentimeter nodule within the left thyroid lobe. No specific follow-up needed Electronically Signed: Judson Felton MD at 15:44 EST ,
== END | disposition home or self-care (01) ==
LOC: US 13:57
PROVIDERS: PCP Internal Medicine; Referring Provider Internal Medicine Endocrinology, Diabetes & Metabolism; Visit Provider Internal Medicine Endocrinology, Diabetes & Metabolism
DX: E04.2 Nontoxic multinodular goiter (principal)
CPT/HCPCS: 76536

== ENCOUNTER → 2024-10-19 | Outpatient (CLI) | payer MEDICARE, OTHER, SELFPAY ==
[2024-10-19 16:12] LABS: Vitamin D,25 Hydroxy 38.8 ng/mL
[2024-10-19 16:42] LABS: Hemoglobin A1c 4.4 % (3.8-5.6)
== END | disposition home or self-care (01) ==
LOC: LAB 14:59
PROVIDERS: PCP Internal Medicine; Referring Provider Internal Medicine; Visit Provider Internal Medicine
DX: E55.9 Vitamin D deficiency, unspecified (principal); R73.09 Other abnormal glucose
CPT/HCPCS: 36415; 82306; 83036

== ENCOUNTER → 2024-12-07 | Outpatient (CLI) | payer MEDICARE, OTHER, SELFPAY ==
[2024-12-07 15:22] LABS: Absolute Lymphocyte Count 1.35 X10^3/uL (0.83-4.51); Absolute Neutrophil Count 3.6 X10^3/uL (2.0-7.7); Basophil# 0.06 X10^3/uL; Eosinophil# 0.21 X10^3/uL; Eosinophils% 3.5 % (0-5); Hematocrit 42.3 % (37-47); Hemoglobin 13.7 g/dL (12.0-15.0); Lymphocyte # 1.35 X10^3/ul (0.83-4.51); Lymphocyte % 22.7 % (19-41); Mean Corp Hgb Conc 32.4 g/dL (32-36); Mean Corpuscular Hgb 29.8 pg (27.0-32.0); Mean Platelet Vol. 9.8 fl (6.2-12.0); Monocyte% 11.8 % (0-10); NRBC Flagged by Analyzer 0 % (0-5); Neutrophil % 60.7 % (47-70); Platelet Count 168 K/mm3 (150-450); RBC Distribution Width CV 15.5 % (11.6-14.6); RBC Distribution Width SD 51.8 fl (35.1-43.9); White Blood Count 5.9 K/mm3 (4.4-11.0)
[2024-12-07 16:21] LABS: ALB/GLOB Ratio 1.6 RATIO (0.9-2.4); AST(SGOT) 35 U/L (<=31); Alanine Aminotransfer ALT/SGPT 20 U/L (<=34); Albumin, Serum 3.7 g/dL (3.4-4.8); Alkaline Phosphatase 62 U/L (35-104); Anion Gap 18 (5-15); BUN 33 mg/dL (4-19); BUN/Creat Ratio 17.5 RATIO (10-20); Calcium,Total 9.1 mg/dL (7.6-11.0); Carbon Dioxide 18.1 mmol/L (21.0-32.0); Chloride 102 mmol/L (98-108); Creatinine, Serum 1.87 mg/dL (0.70-1.20); EST Glomerular Filtration Rate 29 (>60); Globulin 2.4 g/dL (2.2-4.2); Glucose 90 mg/dL (70-99); Magnesium 2.9 mg/dL (1.5-2.2); Potassium 4.5 mmol/L (3.3-5.1); Protein, Total 6.1 g/dL (5.9-8.4); Sodium Level 138 mmol/L (133-145); Thyroid Stim Hormone (TSH) 0.857 uIU/mL (0.300-4.200); Total Bilirubin 1.72 mg/dL (0.00-1.30)
== END | disposition home or self-care (01) ==
LOC: LAB 14:12
PROVIDERS: PCP Internal Medicine; Referring Provider Nurse Practitioner Family; Visit Provider Nurse Practitioner Family
DX: Z51.81 Encounter for therapeutic drug level monitoring (principal); I50.22 Chronic systolic (congestive) heart failure; I48.0 Paroxysmal atrial fibrillation; I42.2 Other hypertrophic cardiomyopathy; N18.32 Chronic kidney disease, stage 3b; R06.02 Shortness of breath; Z95.0 Presence of cardiac pacemaker; Z79.01 Long term (current) use of anticoagulants; Z79.899 Other long term (current) drug therapy
CPT/HCPCS: 36415; 80053; 83735; 84439; 84443; 85025

== ENCOUNTER 2025-01-25 11:57 | Observation (INO) | payer MEDICARE, OTHER, SELFPAY ==
[2025-01-25] VITALS (17 sets, daily range): BP systolic 104–123; BP diastolic 53–76; PULSE 61–75; RESP 15–27; TEMP 36.7–36.8; O2SAT 93–99; BMI 22.4; BMI 22.6; BMI 21.6
--- NOTE | 2025-01-25 12:02 | CT_ITS ---
PROCEDURE: STROKE BRAIN/HEAD WITHOUT CONT 01/25/2025 REASON FOR EXAM: NEURO DEFICIT, ACUTE, STROKE SUSPECTED TECHNIQUE: Head CT without intravenous contrast. Coronal and Sagittal reconstruction series were provided. One or more dose reduction techniques were used (e.g., Automated exposure control, adjustment of the mA and/or kV according to patient size, use of iterative reconstruction technique. RADIATION DOSE SUMMARY: CTDlvol: 47.06 mGy DLP: 872.68 mGycm COMPARISON: None FINDINGS: Brain: Low density in the periventricular white matter suggests mild chronic small vessel ischemic changes. CSF Spaces: Mild generalized cerebral atrophy focal encephalomalacia in the left frontal parietal lobe suggestive of old ischemic change. Sinuses/Mastoids: Clear at visualized levels Bones: Unremarkable Atherosclerotic calcification of the cavernous portions of the internal carotid arteries. CT/STROKE Brain/Head without Cont IMPRESSION: CHRONIC CHANGES. NO ACUTE FINDINGS. Red Alert: Nothing acute The critical information above was relayed directly by me by telephone to Ady Maier on 01/25/2025 at 12:12 pm with readback verification. Reading Location: [id number]
--- NOTE | 2025-01-25 12:02 | EKG12_ITS ---
Test Reason : Blood Pressure : */* mmHG Vent. Rate : 70 BPM Atrial Rate : 70 BPM P-R Int : 228 ms QRS Dur : 160 ms QT Int : 504 ms P-R-T Axes : * -39 84 degrees QTcB Int : 544 ms AV dual-paced rhythm with prolonged AV conduction Biventricular pacemaker detected Abnormal ECG Confirmed by SERA ENRIQUEZ, JUSTIN ([id number]), multimedia editor JEFFERSON HOWARD ([id number]) on 01/29/2025 7:06:26 AM Referred By: Confirmed By: JUSTIN ZAMORA MD
--- NOTE | 2025-01-25 12:02 | CT_ITS ---
PROCEDURE: STROKE CTA HEAD AND NECK W/CON 01/25/2025 REASON FOR EXAM: NEURO DEFICIT, ACUTE, STROKE SUSPECTED TECHNIQUE: CTA imaging of the head and neck from the aortic arch to the skull vertex with out contrast and with intravenous contrast. Multiplanar and multisequence images were obtained. CONTRAST: Isovue 370 VOLUME: 100 mL One or more dose reduction techniques were used (e.g., Automated exposure control, adjustment of the mA and/or kV according to patient size, use of iterative reconstruction technique). RADIATION DOSE SUMMARY: CTDlvol: 28 mGy DLP: 943.05 mGycm COMPARISON: None FINDINGS: Aortic Arch: Normal size and branching pattern. Mild atherosclerotic plaque. Prior CABG. Brachiocephalic and Subclavians: Mild atherosclerotic plaque without significant stenosis. There is evidence of mediastinal lymphadenopathy. RIGHT Carotid: Right CCA: Unremarkable. Right ICA: Unremarkable. Right ECA: Unremarkable. LEFT Carotid: Left CCA: Unremarkable. Left ICA: Minimal calcific plaque at the origin of the left internal carotid artery. Maximum stenosis (NASCET): <50 % Left ECA: Unremarkable. Vertebrals: Codominant. Arise from the subclavians. Both vertebrals form the basilar. RIGHT Vertebral: Unremarkable. LEFT Vertebral: Unremarkable. Anatomy: [place] anatomy is normal. Aneurysm or avm: No intracranial aneurysms or large vascular malformations are identified. Anterior cerebral arteries: Unremarkable: Middle cerebral arteries: Unremarkable. Basilar artery: Unremarkable. Posterior cerebral arteries: origin of the right posterior cerebral artery. Other major branches of the posterior circulation: Unremarkable. Major venous structures: Unremarkable. CT/STROKE CTA Head AND Neck W/Con IMPRESSION: Minimal plaque formation at the origin of left internal carotid artery. Red Alert: Minimal placque at origin of Left ICA The critical information above was relayed directly by me by telephone to Ady Maier on 01/25/2025 at 12:28 pm with readback verification. Reading Location: [id number]
--- NOTE | 2025-01-25 12:06 | ED.VIS.STROK ---
HPI History of Present Illness Chief Complaint: Stroke Alert Informant: patient and family (Daughter) Onset/Context/Timing Onset: Today Context: Sudden Onset Timing: Continuous Quality and Location: Positive for Left Leg Weakness Onset: Approximately 45 minutes prior to arrival Worsened by: Nothing Relieved by: Nothing Associated Symptoms Associated Symptoms: Negative for Headache, Nausea, Vomiting or Chest Pain Narrative Narrative: Patient presents with possible stroke that began approximately 45 minutes prior to arrival. Patient was walking around a nursery looking at plants when her legs gave out. The daughter states she attempted to lift the patient up and her left leg was very weak. Daughter states patient was able to move her left arm. Patient states her symptoms are improving. Patient denies any paresthesias. Patient denies any difficulty speaking or difficulty swallowing. Patient denies any headaches. Patient denies any nausea or vomiting. Patient denies any chest pain or shortness of breath. [facility] Medical History (Updated 01/25/25 @ 14:[address] Ady Lizarraga, DO) Anemia Hypothyroidism Coronary artery disease BiPAP (biphasic positive airway pressure) dependence Sleep apnea Autoimmune thyroiditis Multinodular goiter Presence of cardiac resynchronization therapy defibrillator ([employer] REPAIRER-D) Warfarin-induced coagulopathy Hypoxia Congestive heart failure Collar bone fracture Pacemaker A-fib Hypertrophic cardiomyopathy Home Medications ?Medication ?Instructions ?Recorded ?Last Taken ?Type aspirin 81 mg chewable tablet 81 mg PO DAILY heart health 07/08/22 01/24/25 History (Rahul Chewable Low Dose Aspirin) spacer #1 ea 11/26/22 Unknown Rx warfarin 1 mg tablet 1 mg PO .COMPLEX 12/03/22 Unknown History metoprolol succinate 50 mg 50 mg PO QDAY blood pressure #180 05/22/24 01/24/25 Rx tablet,extended release 24 hr tabs (Toprol XL) torsemide 20 mg tablet 20 mg PO BID #180 tabs 12/11/24 01/24/25 Rx spironolactone 25 mg tablet 25 mg PO DAILY #90 tabs 12/12/24 01/24/25 Rx warfarin 5 mg tablet 5 mg PO DAILY blood thinner #100 01/04/25 01/24/25 Rx tabs albuterol sulfate 90 mcg/actuation 2 puff inhalation Q4H PRN 01/09/25 Unknown Rx aerosol inhaler shortness of breath or wheezing #8.5 grams budesonide-formoterol HFA 160 2 inh inhalation BID #1 ea 01/09/25 01/24/25 Rx mcg-4.5 mcg/actuation aerosol inhaler (Symbicort) dapagliflozin propanediol 10 mg 10 mg PO DAILY #90 tabs 01/22/25 01/24/25 Rx tablet (Farxiga) Allergy/AdvReac Type Severity Reaction Status Date / Time No Known Allergies Allergy Verified 01/25/25 14:08 Family History Father Heart disease Grandmother Breast cancer Surgical History H/O cataract removal with insertion of prosthetic lens History of mitral valve replacement with mechanical valve Status post spinal disc removal History of hysterectomy Social History household members: family current occupation: works in a [employer] Smoking Status: Former smoker quit date: 09/13/83 pack-years: 1 Electronic Cigarette Use: not used how long ago did patient quit smokin years ago alcohol intake: current details: beer, on occasion substance use type: former substance user caffeine: Yes seatbelt use: always do you feel safe at home: Yes ROS ROS ED Constitutional Constitutional ED: Denies chills or fever(s) Eyes Eyes: Denies blurry vision or change in vision ENT ENT ED: Denies rhinorrhea or sore throat Cardiovascular Cardiovascular: Denies chest pain or palpitations Respiratory/Chest Respiratory/Chest: Denies cough or dyspnea Gastrointestinal Gastrointestinal: Denies nausea or vomiting Genitourinary Genitourinary ED: Denies dysuria or hematuria Musculoskeletal Musculoskeletal: Denies back pain or neck pain Integumentary Denies abscess or rash Neurologic Neurologic: Reports weakness; Denies headache(s) Allergic/Immunologic Allergic/Immunologic ED: Denies mouth swelling or urticaria EXAM Physical Exam Const Vital Signs: 01/25/25 11:58 01/25/25 12:02 01/25/25 12:02 Temperature 98.3 F Temperature Source Oral Pulse Rate 70 Respiratory Rate 18 16 Blood Pressure 111/56 L 114/70 Blood Pressure Mean 74 84 Pulse Ox 97 99 Oxygen Delivery Method Room Air Room Air Room Air 01/25/25 12:32 01/25/25 12:32 01/25/25 13:00 Temperature Temperature Source Pulse Rate 70 70 70 Respiratory Rate 16 16 16 Blood Pressure 113/73 113/74 104/58 L Blood Pressure Mean 86 87 73 Pulse Ox 99 99 99 Oxygen Delivery Method 01/25/25 13:02 01/25/25 13:30 01/25/25 13:30 Temperature Temperature Source Pulse Rate 70 70 70 Respiratory Rate 16 16 16 Blood Pressure 104/53 L 109/75 109/75 Blood Pressure Mean 70 86 86 Pulse Ox 99 99 99 Oxygen Delivery Method Positive well nourished and well developed General Appearance ED: well developed and NAD HEENT Reports moist mucous membranes Eyes PERRL and EOMs intact bilaterally Neck supple and no JVD Resp normal respiratory effort and clear to auscultation bilaterally Cardio Rate: regular rate Rhythm: regular rhythm GI soft to palpation, non-tender and non-distended Extremity normal to inspection General Extremety ED: Negative for deformity, edema or tenderness General Extremity: Negative for deformity or edema Neuro oriented x3 and CN's II-XII intact bilaterally [place] Coma Scale: document GCS findings Spontaneous Obeys Commands Oriented 15 Sensorium / Orientation: alert Speech: speech normal Motor Exam: strength 5/5 throughout Psych mental status grossly normal Skin no wounds MDM MDM MDM Narrative Medical decision making narrative: Differential diagnosis includes stroke, TIA, dehydration, electrolyte abnormality, pneumonia, bronchitis, cardiac dysrhythmia, and cardiac ischemia. EKG will be obtained to assess for cardiac dysrhythmia and cardiac ischemia. CT scan of the brain will be obtained to assess for stroke and intracranial bleeding. CTA of the head and neck will be obtained to assess for large vessel occlusion and carotid stenosis. CBC will be obtained to assess for leukocytosis and anemia. Basic metabolic profile will be obtained to assess for electrolyte abnormality and renal function. High-sensitivity troponin will be obtained to assess for cardiac ischemia. 2-hour repeat high-sensitivity troponin will be obtained to assess for ongoing cardiac ischemia. PT with INR and PTT will be obtained to assess for coagulopathy. History & Record Review Additional record(s) reviewed:: Prior labs Lab Data Attestation: I reviewed the patient's lab results. Lab results narrative: CBC was reviewed and was within normal limits. PT with INR and PTT were reviewed. Pro time was 29.1 and INR was 2.7. PTT was 36.5. Basic metabolic profile was reviewed. CO2 was slightly low at 18.5. BUN was 31 and creatinine was 1.59. These are improved from previous result. Glucose was slightly elevated at 132. Initial high-sensitivity troponin was reviewed and was elevated at 135. Labs: Laboratory Results - last 24 hr 01/25/25 11:59 WBC 5.3 RBC 4.43 Hgb 13.1 Hct 40.1 MCV 90.5 MCH 29.6 MCHC 32.7 RDW Std Deviation 50.5 H RDW Coeff of Sona 15.4 H Plt Count 151 MPV 9.3 Immature Gran % (Auto) 0.400 Neut % (Auto) 64.9 Lymph % (Auto) 19.3 Piatt % (Auto) 12.9 H Eos % (Auto) 1.9 Baso % (Auto) 0.6 Absolute Neuts (auto) 3.4 Absolute Lymphs (auto) 1.02 Nucleated RBC % 0 PT 29.1 H INR 2.7 APTT 36.5 H Sodium 138 Potassium 4.0 Chloride 106 Carbon Dioxide 18.5 L Anion Gap 14 BUN 31 H Creatinine 1.59 H Estim Creat Clear Calc 29.63 L Est GFR (MDRD) Non-Af 35 L BUN/Creatinine Ratio 19.2 Glucose 132 H Calcium 9.4 Troponin T High Sens 135 H* Radiography Diagnostic Testing: Clinical Impression(s) from Imaging Studies Brain CT 01/25/25 12:02 IMPRESSION: CHRONIC CHANGES. NO ACUTE FINDINGS. Red Alert: Nothing acute The critical information above was relayed directly by me by telephone to Ady Lizarraga on 01/25/2025 at 12:12 pm with readback verification. Reading Location: [id number] Head/Neck CTA 01/25/25 12:02 IMPRESSION: Minimal plaque formation at the origin of left internal carotid artery. Red Alert: Minimal placque at origin of Left ICA The critical information above was relayed directly by me by telephone to Ady Lizarraga on 01/25/2025 at 12:28 pm with readback verification. Reading Location: [id number] CT scan of the brain was obtained. There is no acute intracranial abnormality. This was interpreted by the radiologist and was also independently reviewed by myself. CTA of the head and neck was obtained. There is minimal plaque formation at the origin of the left internal carotid artery. There is no large vessel occlusion noted. There is no aneurysm noted. This was interpreted by the radiologist and was also independently reviewed by myself. EKG Initial EKG: Attestation: I personally reviewed and interpreted this EKG as follows: Interpretation: Paced (70) Comments: EKG was obtained. On my independent interpretation, shows a paced rhythm with a rate of 70. UT interval was slightly prolonged at 228 ms. QRS interval was prolonged at 160 ms. QTc interval slightly prolonged at 544 ms. There is left axis deviation -39. There is a left bundle branch block pattern noted. Prior EKG tracings: available for review Prior: Unchanged (08/25/2023) Management Discussion w/another healthcare provider: Hospitalist, Stock Puller (Dr. Falcon, stroke neurologist at [facility]) and Radiologist Treatment and Re-Evaluation Narrative: Patient and family were advised of her findings. Patient is not a candidate for thrombolytic therapy at this time due to her current Coumadin use and improving symptoms. Patient was advised of her findings. Findings were also discussed with patient's daughter over the phone. Daughter states patient always has an elevated troponin. Patient denies any chest pain. Patient states she has been having some shortness of breath over the past couple days. Because of the TIA symptoms, and elevated troponin, I recommended admission to the hospital for further evaluation. Patient and daughter are agreeable with this. Case was discussed with the hospitalist. She will admit the patient to her service. Patient understood and was agreeable with the plan. All questions were answered. Discharge Plan Triage Chief Complaint: Stroke Alert ED Provider: Ady Lizarraga Dx/Rx/DC Orders Clinical Impression: TIA (transient ischemic attack), CKD (chronic kidney disease), Elevated troponin, Pacemaker Prescriptions: No Action aspirin [Rahul Chewable Aspirin] 81 mg tablet,chewable 81 mg PO DAILY warfarin 1 mg tablet 1 mg PO .COMPLEX Protocol: Dose Management Condition: Wednesday Dose/Route: 5 mg Instruction: 1 x 5 mg tablet Condition: Wednesday Dose/Route: 5 mg Instruction: 1 x 5 mg tablet Condition: Wednesday Dose/Route: 2.5 mg Instruction: 0.5 x 5 mg tablets Condition: Wednesday Dose/Route: 5 mg Instruction: 1 x 5 mg tablet Condition: Dose/Route: 2.5 mg Instruction: 0.5 x 5 mg tablets Condition: Wednesday Dose/Route: 5 mg Instruction: 1 x 5 mg tablet Condition: Wednesday Dose/Route: 5 mg Instruction: 1 x 5 mg tablet Protocol Text: Adjustment Start Date: Wednesday12/05/24 INR Value: 4.0 INR Date: 10/30/24 Recheck Date: 12/19/24 Rx Instructions: 1 mg orally as directed for dose changes; Managed by PCP spironolactone 25 mg tablet 25 mg PO DAILY Qty: 90 3RF Rx Instructions: Hold for serum potassium more than 5.0 albuterol sulfate 90 mcg/actuation HFA aerosol inhaler 2 puff inhalation Q4H PRN (Reason: shortness of breath or wheezing) Qty: 8.5 11RF budesonide-formoterol [Symbicort] 160-4.5 mcg/actuation HFA aerosol inhaler 2 inh inhalation BID Qty: 1 11RF Rx Instructions: administer with spacer, rinse mouth after each use (DME) spacer See Rx Instructions .ROUTE .MEDSUPPLY Qty: 1 0RF Rx Instructions: As directed metoprolol succinate [Toprol XL] 50 mg tablet extended release 24 hr 50 mg PO QDAY Qty: 180 3RF torsemide 20 mg tablet 20 mg PO BID Qty: 180 3RF warfarin 5 mg tablet 5 mg PO DAILY Qty: 100 3RF Protocol: Dose Management Condition: Wednesday Dose/Route: 5 mg Instruction: 1 x 5 mg tablet Condition: Wednesday Dose/Route: 5 mg Instruction: 1 x 5 mg tablet Condition: Wednesday Dose/Route: 2.5 mg Instruction: 0.5 x 5 mg tablets Condition: Wednesday Dose/Route: 5 mg Instruction: 1 x 5 mg tablet Condition: Dose/Route: 2.5 mg Instruction: 0.5 x 5 mg tablets Condition: Wednesday Dose/Route: 5 mg Instruction: 1 x 5 mg tablet Condition: Wednesday Dose/Route: 5 mg Instruction: 1 x 5 mg tablet Protocol Text: Adjustment Start Date: Wednesday12/05/24 INR Value: 4.0 INR Date: 10/30/24 Recheck Date: 12/19/24 Patient Comments: daughter states takes 5mg daily and occasionally gets bumped up to 7.5mg but not often Rx Instructions: Take 1 tab (5mg) Sun/Mon/Wed/Fri/Sat and 0.5 tab (2.5mg) Tu/Th.; or use as directed Farxiga 10 mg tablet 10 mg PO DAILY Qty: 90 3RF Primary Care Provider: Roseline Barakat Referrals: Roseline Barakat MD [Primary Care Provider] - Print Language: Mongolian Disposition Disposition: Acute Care Hospital [facility] NIHSS NIHSS 1a. Level of Consciousness: 0 - Alert; keenly responsive 1b. LOC Questions: 0 - Answers BOTH questions correctly 1c. LOC Commands: 0 - Performs BOTH tasks correctly 2. Best Gaze: 0 - Normal 3. Visual: 0 - No visual loss 4. Facial Palsy: 0 - Normal symmetrical movements 5a. Left Arm: 0 - No drift; arm holds 90 (or 45) degrees for full 10 seconds 5b. Right Arm: 0 - No drift; arm holds 90 (or 45) degrees for full 10 seconds 6a. Left Le - No drift; leg holds 30-degree position for full 5 seconds 6b. Right Le - No drift; leg holds 30-degree position for full 5 seconds 7. Limb Ataxia: 0 - Absent 8. Sensory: 0 - Normal; no sensory loss 9. Best Language: 0 - No aphasia; normal 10. Dysarthria: 0 - Normal 11. Extinction and Inattention: 0 - No abnormality Total: 0 Stroke Questions Stroke Team Activated: Yes Reviewed Inclusion/Exclusion criteria: Yes Was Patient considered for Endovascular Intervention?: No IV Thrombolytic Administered: No
[2025-01-25 12:14] LABS: Absolute Lymphocyte Count 1.02 X10^3/uL (0.83-4.51); Absolute Neutrophil Count 3.4 X10^3/uL (2.0-7.7); Basophil# 0.03 X10^3/uL; Basophil% 0.6 % (0-1); Eosinophils% 1.9 % (0-5); Hematocrit 40.1 % (37-47); Hemoglobin 13.1 g/dL (12.0-15.0); Lymphocyte # 1.02 X10^3/ul (0.83-4.51); Lymphocyte % 19.3 % (19-41); Mean Corp Hgb Conc 32.7 g/dL (32-36); Mean Corpuscular Hgb 29.6 pg (27.0-32.0); Mean Corpuscular Volume 90.5 fL (81-99); Mean Platelet Vol. 9.3 fl (6.2-12.0); Monocyte# 0.68 X10^3/uL; Monocyte% 12.9 % (0-10); NRBC Flagged by Analyzer 0 % (0-5); Neutrophil # 3.43 X10^3/uL (2.7-7.7); Neutrophil % 64.9 % (47-70); Platelet Count 151 K/mm3 (150-450); RBC Distribution Width CV 15.4 % (11.6-14.6); RBC Distribution Width SD 50.5 fl (35.1-43.9); Red Blood Count 4.43 M/mm3 (4.2-5.4); White Blood Count 5.3 K/mm3 (4.4-11.0)
--- NOTE | 2025-01-25 12:17 | CM.ED ---
Social work Reason for referral: stroke alert SW responded to the SW called for patient. Patient was in imaging, but patient's daughter, Marianne, was bedside; this SW entered patient's room, introducing self and role at [facility]. Marianne stated unfortunately being used to experiencing patient's TIAs and strokes before. Marianne stated belief that patient's current situation was a TIA due to the way that patient is currently coming out of it. Marianne stated not needing anything currently from SW. Patient arrived back from imaging and SW introduced self and role at [facility] to patient. Patient denied current needs at this time as well. SW to follow as needed. Jyotsna Nino, BACK PAD INSPECTOR, HOSPITAL MORTICIAN
[2025-01-25 12:27] LABS: International Normalized Ratio 2.7; Prothrombin Time (Protime)PT. 29.1 SECONDS (11.7-14.9)
[2025-01-25 12:28] LABS: Partial Thromboplast Time 36.5 Seconds (24.1-36.2)
[2025-01-25 13:01] LABS: Anion Gap 14 (5-15); BUN 31 mg/dL (4-19); BUN/Creat Ratio 19.2 RATIO (10-20); Calcium,Total 9.4 mg/dL (7.6-11.0); Carbon Dioxide 18.5 mmol/L (21.0-32.0); Chloride 106 mmol/L (98-108); Creatinine, Serum 1.59 mg/dL (0.70-1.20); EST Glomerular Filtration Rate 35 (>60); Estimated Creatinine Clearance 29.63 ml/min (50-250); Glucose 132 mg/dL (70-99); Sodium Level 138 mmol/L (133-145)
[2025-01-25 13:04] LABS: Troponin T High Sensitivity 135 ng/L (<=14)
--- NOTE | 2025-01-25 13:43 | PCM.HP.STD ---
HPI - General General Date of Admission: 01/25/25 Date of Service: 01/25/25 Chief Complaint: LLE weakness, transient. HPI Narrative The patient is a 69 y/o F w/ PMHx: CKD stage III unclear subtype per GFR trending, Hx autoimmune thyroiditis with multinodular goiter, Hypertrophic cardiomyopathy, HTN, HLD, Chronic asthma, Former tobacco use, PAF, Valvular Heart Disease s/p MVR (mechanical), KEVIN who presents to [facility] ED on 01/25/2025 with history of sudden onset 45 minutes prior to arrival of left lower extremity weakness noting that she was walking around at a nursery looking at plants when suddenly her leg gave out with the daughter attempting to lift her but her left leg would not work although she was able to continue to use her left arm with symptoms improving with no paresthesias associated or other neurological symptoms prompting stroke alert and transition to the ED for evaluation. In the ED stroke alert initiated and stroke alert evaluation per neurology with NIH stroke assessment 0 with suspicion for TIA. Workup in the ED included T98.3, heart 70, BP 111/56, respiratory rate 18, 97% room air with most recent repeat vitals heart rate 70, BP 104/53, respiratory rate 16, 99% room air, CBC with WBC 5.3, hemoglobin 13.1, platelet 151 without marked shift, coags with INR 2.7, PT 29.1, PTT 36.5, BMP with At 18.5, BUN/creatinine 31/1.59, GFR 35, glucose 132, troponin 135, CT of the brain with no acute intracranial findings, CTA head and neck with minimal plaque formation the origin of the left ICA, EKG with paced rhythm with no acute evidence of ischemia, possible L BBB. [facility] Medical History Anemia Hypothyroidism Coronary artery disease BiPAP (biphasic positive airway pressure) dependence Sleep apnea Autoimmune thyroiditis Multinodular goiter Presence of cardiac resynchronization therapy defibrillator ([employer]) Warfarin-induced coagulopathy Hypoxia Congestive heart failure Collar bone fracture Pacemaker A-fib Hypertrophic cardiomyopathy Home Medications ?Medication ?Instructions ?Recorded ?Last Taken ?Type aspirin 81 mg chewable tablet 81 mg PO DAILY heart health 07/08/22 01/24/25 History (Rahul Chewable Low Dose Aspirin) spacer #1 ea 11/26/22 Unknown Rx warfarin 1 mg tablet 1 mg PO .COMPLEX 12/03/22 Unknown History metoprolol succinate 50 mg 50 mg PO QDAY blood pressure #180 05/22/24 01/24/25 Rx tablet,extended release 24 hr tabs (Toprol XL) torsemide 20 mg tablet 20 mg PO BID #180 tabs 12/11/24 01/24/25 Rx spironolactone 25 mg tablet 25 mg PO DAILY #90 tabs 12/12/24 01/24/25 Rx warfarin 5 mg tablet 5 mg PO DAILY blood thinner #100 01/04/25 01/24/25 Rx tabs albuterol sulfate 90 mcg/actuation 2 puff inhalation Q4H PRN 01/09/25 Unknown Rx aerosol inhaler shortness of breath or wheezing #8.5 grams budesonide-formoterol HFA 160 2 inh inhalation BID #1 ea 01/09/25 01/24/25 Rx mcg-4.5 mcg/actuation aerosol inhaler (Symbicort) dapagliflozin propanediol 10 mg 10 mg PO DAILY #90 tabs 01/22/25 01/24/25 Rx tablet (Farxiga) Allergy/AdvReac Type Severity Reaction Status Date / Time No Known Allergies Allergy Verified 01/25/25 14:08 Family History Father Heart disease Grandmother Breast cancer Mother Heart disease Surgical History H/O cataract removal with insertion of prosthetic lens History of mitral valve replacement with mechanical valve Status post spinal disc removal History of hysterectomy Social History household members: family current occupation: works in a [employer] Smoking Status: Former smoker quit date: 09/13/83 pack-years: 1 Electronic Cigarette Use: not used how long ago did patient quit smokin years ago alcohol intake: current details: beer, on occasion substance use type: former substance user caffeine: Yes seatbelt use: always do you feel safe at home: Yes ROS ROS Narrative Admission Review of Systems: CONSTITUTIONAL: No weight loss, fever, chills, + weakness or fatigue. HEENT: Eyes: No visual loss, blurred vision, double vision or yellow sclerae. Ears, Nose, Throat: No hearing loss, sneezing, congestion, runny nose or sore throat. SKIN: No rash or itching, lesions, wounds except + occasional very stage ecchymoses. CARDIOVASCULAR: No chest pain, chest pressure or chest discomfort, palpitations, edema, orthopnea, syncopal events. RESPIRATORY: No shortness of breath, cough or sputum, wheezing, hemoptysis. GASTROINTESTINAL: No anorexia, nausea, vomiting or diarrhea, abdominal pain, melena, BRBPR. GENITOURINARY: No dysuria, frequency, urgency or retention. NEUROLOGICAL: + Transient left lower extremity weakness. No headache, dizziness, syncope, paralysis, ataxia, numbness or tingling in the extremities, change in bowel or bladder control, seizure. MUSCULOSKELETAL: No muscle, back pain, joint pain or stiffness. HEMATOLOGIC: No anemia. + Easy bleeding/bruising. LYMPHATICS: No enlarged nodes. No history of splenectomy. PSYCHIATRIC: No history of depression or anxiety. ENDOCRINOLOGIC: No reports of sweating, cold or heat intolerance. No polyuria or polydipsia. ALLERGIES: + History of asthma. Vital Signs Vital Signs Vital Signs: 01/25/25 11:58 01/25/25 12:02 01/25/25 12:02 Temperature 98.3 F Temperature Source Oral Pulse Rate 70 Respiratory Rate 18 16 Blood Pressure 111/56 L 114/70 Blood Pressure Mean 74 84 Pulse Ox 97 99 Oxygen Delivery Method Room Air Room Air Room Air 01/25/25 12:32 01/25/25 12:32 01/25/25 13:00 Temperature Temperature Source Pulse Rate 70 70 70 Respiratory Rate 16 16 16 Blood Pressure 113/73 113/74 104/58 L Blood Pressure Mean 86 87 73 Pulse Ox 99 99 99 Oxygen Delivery Method 01/25/25 13:02 01/25/25 13:30 01/25/25 13:30 Temperature Temperature Source Pulse Rate 70 70 70 Respiratory Rate 16 16 16 Blood Pressure 104/53 L 109/75 109/75 Blood Pressure Mean 70 86 86 Pulse Ox 99 99 99 Oxygen Delivery Method Weight Weight: 136 lb 7.458 oz Body Mass Index (BMI) 22.6 Physical Exam Narrative Physical Examination: General: Awake, alert, oriented x 3 and cooperative, seated upright in the ED bed, reports continued complete resolution of left lower extremity weakness Skin: Normal color, normal turgor, no icterus, no cyanosis except occasional stage ecchymoses. HEENT: AT/NC, EOMI, PERRLA, MMM, no carotid bruits or JVD noted. Lungs: Diminished, greater bases, appropriate effort, no rales, ronchi or wheezing. Heart: Regular rate and rhythm; no gallop, rub audible, prostatic click. Abdomen: Soft, NTTP, ND, normal BS, no appreciated HSM. Extremities: No cyanosis, clubbing, or edema. Neurological: Patient awake, alert, oriented as noted, cognitive function intact; pupils equally reactive to light and accommodation, cranial nerves gross normal, moving all 4 extremities, no focal deficits, sensation intact, strength appropriate, finger-nose and heel cortez appropriate. Psychiatric: Affect appears normal, no acute evidence of depressive or anxiety feelings. Results Lab / Micro Data 01/25/25 11:59 01/25/25 11:59 Labs: Laboratory Results - last 24 hr 01/25/25 11:59: WBC 5.3, RBC 4.43, Hgb 13.1, Hct 40.1, MCV 90.5, MCH 29.6, MCHC 32.7, RDW Std Deviation 50.5 H, RDW Coeff of Snoa 15.4 H, Plt Count 151, MPV 9.3, Immature Gran % (Auto) 0.400, Neut % (Auto) 64.9, Lymph % (Auto) 19.3, Platte % (Auto) 12.9 H, Eos % (Auto) 1.9, Baso % (Auto) 0.6, Absolute Neuts (auto) 3.4, Absolute Lymphs (auto) 1.02, Nucleated RBC % 0, PT 29.1 H, INR 2.7, APTT 36.5 H, Sodium 138, Potassium 4.0, Chloride 106, Carbon Dioxide 18.5 L, Anion Gap 14, BUN 31 H, Creatinine 1.59 H, Estim Creat Clear Calc 29.63 L, Est GFR (MDRD) Non-Af 35 L, BUN/Creatinine Ratio 19.2, Glucose 132 H, Calcium 9.4, Troponin T High Sens 135 H* Imaging Radiology Impression Brain CT 01/25/25 12:02 IMPRESSION: CHRONIC CHANGES. NO ACUTE FINDINGS. Red Alert: Nothing acute The critical information above was relayed directly by me by telephone to Ady Lizarraga on 01/25/2025 at 12:12 pm with readback verification. Reading Location: [id number] Head/Neck CTA 01/25/25 12:02 IMPRESSION: Minimal plaque formation at the origin of left internal carotid artery. Red Alert: Minimal placque at origin of Left ICA The critical information above was relayed directly by me by telephone to Ady Lizarraga on 01/25/2025 at 12:28 pm with readback verification. Reading Location: [id number] Assessment & Plan Assessment/Plan (1) TIA (transient ischemic attack): PLAN: Plan The patient is a 69 y/o F w/ PMHx: CKD stage III unclear subtype per GFR trending, Hx autoimmune thyroiditis with multinodular goiter, Hypertrophic cardiomyopathy, HTN, HLD, Chronic asthma, Former tobacco use, PAF, Valvular Heart Disease s/p MVR (mechanical), KEVIN who presents to [facility] ED on 01/25/2025 with history of sudden onset 45 minutes prior to arrival of left lower extremity weakness noting that she was walking around at a nursery looking at plants when suddenly her leg gave out with the daughter attempting to lift her but her left leg would not work although she was able to continue to use her left arm with symptoms improving with no paresthesias associated or other neurological symptoms prompting stroke alert and transition to the ED for evaluation. #1. Left lower extremity weakness, resolved concerning for TIA: Will admit to PCU, patient is unable to have MRI thus we will plan for repeat CT head in 24 hours, will obtain ECHO as most recent done remotely, PT/OT/Speech/Nutrition evaluation per protocol. Will allow permissive HTN, maintain on asa and Coumadin with INR trending, will initiate statin w/ AM FLP, fall precautions. Mag, TSH, FLP, HgbA1c requested. Maintain on fall and aspiration precautions. Will continue neurology consultation. #2. Elevated cardiac enzyme of unclear significance, noted chronically elevated: EKG with paced rhythm with no acute evidence of ischemia, possible L BBB, initial trop 135. Will maintain on a monitored bed to assure no acute myocardial infarction with serial cardiac enzymes and EKGs. Magnesium level requested. FLP in AM. Continued on Coumadin with INR trending as well as baby aspirin. Echocardiogram requested. Given presentation with evaluation #1 will continue and once stroke workup clarified may then consider involvement of cardiology if appropriate at that time. Status post AICD as noted, interrogation requested. #3. Chronic Kidney Disease Stage III, unclear subtype per GFR trend: Admission BUN/Cr 31/1.59, GFR 35, baseline renal function primarily 1.4-1.8, most recently 12/07/2024 creatinine 1.87, repeat BMP in AM. #4. History of autoimmune thyroiditis with multinodular goiter: Following with temperature inspector Dr. Velez, per most recent reported note 08/07/2024 continued plan for routine annual thyroid level assessments as well as thyroid ultrasound assessments, encourage continued follow-up with endocrinology and PCP as previously arranged. #5. Hypertrophic cardiomyopathy: Status post AICD, most recent noted echocardiogram 09/27/2023 with normal LV size, EF 35%, severely enlarged LA, mild to moderate TBI, PASP 52 mmHg, mild pulmonary hypertension, stable appearing mechanical mitral valve apparatus. Interrogation requested given elevated cardiac enzyme as noted. Will continue baby aspirin, Coumadin with INR trending, temporarily holding hypertensive regimen for permissive hypertension with readdition once appropriate, not on statin therapy which will be added as noted given presentation #1. #6. PAF: Will temporally hold metoprolol for permissive hypertension given presentation as noted #1, continue Coumadin with INR trending. #7. Chronic asthma: Will temporarily hold home inhalers in the interim transition to ATC budesonide therapy, PRN albuterol, HOB, IS parameters. #8. Valvular heart disease: Status post mitral valve replacement with mechanical valve, continue Coumadin with INR trending. Most recent noted echocardiogram 09/27/2023 with normal LV size, EF 35%, severely enlarged LA, mild to moderate TBI, PASP 52 mmHg, mild pulmonary hypertension, stable appearing mechanical mitral valve apparatus. #9. Hypertension: Will maintain permissive hypertension given #1 with as needed agents per stroke protocol. #10. Hyperlipidemia: Per current list not on regimen, FLP in AM, statin added given #1. #11. KEVIN: Noted history of central sleep apnea, continue PAP therapy, noted AHI 47 on ASV. #12. Former tobacco use: Encourage continued tobacco cessation. #13. DVT prophylaxis: Continue Coumadin with INR trending. #14. CODE status: Patient HCPOA and living will are not in place but she notes her 2 daughters would be her medical decision makers if necessary. Discussed CODE status at length including difference between FULL code, DNR-CCA and DNR-CC status. Following discussions about the differences in these status, requested Full Code status. Advanced Care Planning Face to Face Time: 16 minutes. Charges/Coding Visit Charges Inpatient E&M: 78835 Init Hosp L2 Procedures Hospitalists Procedures: 58731 Advncd Care Plan 30 Min
[2025-01-25 14:26] LABS: Magnesium 2.4 mg/dL (1.5-2.2)
[2025-01-25 15:24] LABS: Troponin T High Sens 2 HR 121 ng/L (<=14)
[2025-01-25 15:28] LABS: Bedside Glucose 134 mg/dL (74-106)
--- NOTE | 2025-01-25 16:25 | ECHOD_ITS ---
Reason For Study Reason For Study: TIA/CVA Procedure This was a 2D Doppler, Color Flow transthoracic echocardiogram. Exam performed portable in patient room. Left Ventricle Normal LV size. The left ventricular ejection fraction is 35 %. There is moderate global hypokinesis of the left ventricle. Right Ventricle Normal RV size. ICD or pacer leads identified within the right ventricle. Normal systolic function. Atria The left atrium is severely enlarged. The right atrium is moderately enlarged. Mitral Valve Mean transmitral valve gradient 2.3 mmHg. Stable appearing mechanical mitral valve apparatus. Tricuspid Valve Normal tricuspid valve. Mild to moderate (1-2+) tricuspid valve insufficiency. Pulmonary artery systolic pressure is 52 mmHg. Aortic Valve Normal aortic valve. Trisinus/trileaflet aortic valve. Pulmonic Valve Normal pulmonic valve. Mild (1+) pulmonic valve insufficiency. Great Vessels Normal aortic root. The pulmonary artery is normal size. The inferior vena cava is dilated. Pericardium/Pleural No pericardial effusion. MMode/2D Measurements & Calculations LVIDd: 5.2 cm IVSd: 0.88 cm Ao root diam: 3.1 cm LVIDs: 4.4 cm LVPWd: 0.90 cm RVDd: 4.1 cm FS: 14.9 % LAV(MOD-sp4): 133.9 ml LVAd ap4: 26.6 cm2 SV(MOD-sp4): 30.7 ml LVLd ap4: 7.4 cm SI(MOD-sp4): 18.1 ml/m2 EDV(MOD-sp4): 80.0 ml EDV(sp4-el): 80.8 ml LVAs ap4: 20.2 cm2 LVLs ap4: 7.0 cm ESV(MOD-sp4): 49.3 ml ESV(sp4-el): 49.8 ml EF(MOD-sp4): 38.3 % EF(sp4-el): 38.3 % SV(sp4-el): 31.0 ml LA A4 area: 34.0 cm2 LA dimension(2D): 5.9 cm TAPSE: 1.5 cm Time Measurements MV dec time: 0.16 sec Doppler Measurements & Calculations MV E max timo: 137.3 cm/sec Lat Peak E' Timo: 5.6 cm/sec Med Peak E' Timo: 4.6 cm/sec MV A max timo: 37.8 cm/sec E/E' lat: 24.5 E/E' med: 29.7 MV E/A: 3.6 MV V2 max: 135.2 cm/sec MV P1/2t max timo: 140.4 cm/sec Ao V2 max: 91.3 cm/sec MV max P.3 mmHg MV P1/2t: 58.6 msec Ao max P.3 mmHg MV V2 mean: 68.1 cm/sec MV dec slope: 702.2 cm/sec2 Ao V2 mean: 55.0 cm/sec MV mean P.3 mmHg Ao mean P.4 mmHg MV V2 VTI: 26.8 cm MVA(P1/2t): 3.8 cm2 Ao V2 VTI: 15.3 cm AV (velocity ratio): 0.85 LV V1 max: 77.7 cm/sec PA V2 max: 58.1 cm/sec PI dec slope: 167.7 cm/sec2 LV V1 max P.4 mmHg PA V2 mean: 41.3 cm/sec LV V1 mean P.1 mmHg LV V1 mean: 49.6 cm/sec LV V1 VTI: 12.9 cm TR max timo: 349.5 cm/sec TR max P.9 mmHg ECHO/Echo Complete Interpretation Summary The left ventricular ejection fraction is 35 %. There is moderate global hypokinesis of the left ventricle. Normal LV size. Stable appearing mechanical mitral valve apparatus. Mild to moderate (1-2+) tricuspid valve insufficiency. Pulmonary artery systolic pressure is 52 mmHg. Ordering Physician: Renée Fields Referring Physician: Roseline Barakat Performed By: Madhavi Burnette, CT, RVT
[2025-01-25 18:05] LABS: Troponin T High Sens 4 HR 122 ng/L (<=14)
[2025-01-25] MEDS: Budesonide Respules 0.5 MG/2 ML AMPUL.NEB. INHALATION (18:53)
--- NOTE | 2025-01-26 00:06 | CPS ---
Patient placed on autopap with CPAP range of 5-20 per home settings.
--- NOTE | 2025-01-26 01:33 | NURSING ---
During shift change NIHSs with AM nurse, pt. asked about if she could eat. When pt. was told she had failed her dysphagia screen, she became very irritable. She stated she didn't remember coughing but dayshift nurse stated that he had heard it. Pt. asked if she was allowed to eat or drink anything. i advised her that per policy she was NPO until after speech saw her and evaluated her. Shortly after, the charge nurse and i went in to perform a pacer check @ bedside. Pt. again stated she was starving and asked other nurse if she could have something to eat and drink.The charge nurse, who was already made aware of the pt.'s failed dysphagia screen, once again explained to her that she was NPO until after speech therapy evaluated her. Shortly After this, pt. requested that i return to her room. I entered and pt. began stating that she would not be getting a repeat CT scan 01/26/25. she stated i already had one done, that's good enough. I explained to her that d/t the pt. having a pacemaker, she needed to have a repeat CT scan instead of an MRI. Pt. stated that she didn't care, i am not doing another one. She also became very adament that she needed to have her metoprolol and warfarin. I explained that when ruling out strokes we allow permissive hypertension which allows more bloodflow to the brain in case of a stroke. Pt. stated she understands that, but she needs her metoprolol. Pt. insisted that she always has phlegm in the back of her throat which causes her to cough and that has no issues swallowing. She insisted that i allow her to do the dysphagia screen again. Pt. then passed dysphagia screen without coughing. i contacted Dr. Fields and informed her of this conversation with pt. (see physician notification). Dr. Fields wanted pt. to have warfarin, so pt. was allowed to have warfarin with applesauce. pt. had no issues/ no coughing noted while taking medication. Pt. refused atorvastatin that was ordered despite explanation of why it was ordered by . She stated i will have to talk to my primary Dr., Dr. Barajas, before i add any other meds.
[2025-01-26 01:44] VITALS: PULSE 70; RESP 14; O2SAT 93
[2025-01-26 02:00] VITALS: BP 115/66; PULSE 71; RESP 18; TEMP 35.8; O2SAT 95
[2025-01-26 02:24] VITALS: BMI 21.6
[2025-01-26 04:22] VITALS: BMI 21.5
[2025-01-26 05:06] LABS: Absolute Lymphocyte Count 1.21 X10^3/uL (0.83-4.51); Absolute Neutrophil Count 2.5 X10^3/uL (2.0-7.7); Basophil# 0.05 X10^3/uL; Basophil% 1.1 % (0-1); Eosinophil# 0.16 X10^3/uL; Eosinophils% 3.5 % (0-5); Hematocrit 38.2 % (37-47); Hemoglobin 12.4 g/dL (12.0-15.0); Lymphocyte # 1.21 X10^3/ul (0.83-4.51); Lymphocyte % 26.7 % (19-41); Mean Corp Hgb Conc 32.5 g/dL (32-36); Mean Corpuscular Hgb 29.4 pg (27.0-32.0); Mean Corpuscular Volume 90.5 fL (81-99); Mean Platelet Vol. 10.5 fl (6.2-12.0); Monocyte# 0.58 X10^3/uL; Monocyte% 12.8 % (0-10); NRBC Flagged by Analyzer 0 % (0-5); Neutrophil # 2.51 X10^3/uL (2.7-7.7); Neutrophil % 55.5 % (47-70); Platelet Count 143 K/mm3 (150-450); RBC Distribution Width CV 15.4 % (11.6-14.6); RBC Distribution Width SD 50.3 fl (35.1-43.9); Red Blood Count 4.22 M/mm3 (4.2-5.4); White Blood Count 4.5 K/mm3 (4.4-11.0)
[2025-01-26 05:29] LABS: International Normalized Ratio 2.8; Prothrombin Time (Protime)PT. 30.3 SECONDS (11.7-14.9)
[2025-01-26 05:31] LABS: ALB/GLOB Ratio 1.7 RATIO (0.9-2.4); AST(SGOT) 33 U/L (<=31); Alanine Aminotransfer ALT/SGPT 24 U/L (<=34); Albumin, Serum 3.8 g/dL (3.4-4.8); Alkaline Phosphatase 55 U/L (35-104); Anion Gap 12 (5-15); BUN 22 mg/dL (4-19); BUN/Creat Ratio 17.3 RATIO (10-20); Calcium,Total 9.4 mg/dL (7.6-11.0); Carbon Dioxide 19.5 mmol/L (21.0-32.0); Chloride 109 mmol/L (98-108); Creatinine, Serum 1.28 mg/dL (0.70-1.20); EST Glomerular Filtration Rate 45 (>60); Estimated Creatinine Clearance 38.29 ml/min (50-250); Globulin 2.3 g/dL (2.2-4.2); Glucose 79 mg/dL (70-99); Potassium 3.9 mmol/L (3.3-5.1); Sodium Level 140 mmol/L (133-145); Thyroid Stim Hormone (TSH) 0.744 uIU/mL (0.300-4.200); Total Bilirubin 1.74 mg/dL (0.00-1.30)
--- NOTE | 2025-01-26 05:55 | EKG12_ITS ---
Test Reason : AM EKG Blood Pressure : */* mmHG Vent. Rate : 71 BPM Atrial Rate : 71 BPM P-R Int : 226 ms QRS Dur : 166 ms QT Int : 500 ms P-R-T Axes : * -44 68 degrees QTcB Int : 543 ms AV dual-paced rhythm with prolonged AV conduction Biventricular pacemaker detected Abnormal ECG When compared with ECG of 25-Jan-2025 12:41, MANUAL COMPARISON REQUIRED DATA IS UNCONFIRMED Confirmed by SERA ENRIQUEZ, JUSTIN ([id number]), sports editor JEFFERSON HOWARD ([id number]) on 01/29/2025 9:46:07 AM Referred By: JANIS Confirmed By: JUSTIN ZAMORA MD
[2025-01-26 06:00] VITALS: BP 114/69; PULSE 78; RESP 18; TEMP 35.7; O2SAT 96
[2025-01-26 06:10] LABS: Cholesterol 105 mg/dL (<=200); High Density Lipoprotein 43 mg/dL; Low Density Lipoprotein Calc. 49 mg/dL; Triglycerides 67 mg/dL; Very Low Density Lipoprotein 13 mg/dL (5-40); cholesterol:hdl ratio screen 2.47
[2025-01-26 06:23] LABS: Magnesium 2.5 mg/dL (1.5-2.2)
[2025-01-26 06:47] VITALS: PULSE 78; RESP 16; O2SAT 94
[2025-01-26] MEDS: Budesonide Respules 0.5 MG/2 ML AMPUL.NEB. INHALATION (06:48)
[2025-01-26 07:31] LABS: Hemoglobin A1c 5.9 % (<=5.6)
[2025-01-26 09:50] VITALS: BP 114/73; PULSE 76; RESP 16; TEMP 36.7; O2SAT 98
--- NOTE | 2025-01-26 12:30 | DCINST_ITS ---
Discharge Instructions Diet Discharge Diet: No restrictions DC O2, CPAP, BIPAP needs Home O2 Discharge instructions: No Dressing / Incision Discharge Activity: Return to Normal Activity Weight Bearing Status: Full weight bearing Follow Up Care Test Results: Test results from this visit will be discussed in further detail at your follow- up appointment, if applicable. Discharge Plan Admission Admit Date/Time: 01/25/25 13:44 Primary Reason for Your Visit: Transient weakness-etiology unclear, doubt TIA Attending Provider: Guero Warren Primary Care Provider: Roseline Barakat Consulting Providers: Edu Fletcher; Concepcion Rosenberg; Mel Ochoa; Ele Matthews; Jenelle Henson; Ian Smith; Jaylin Mchugh; Delvis Latham; Yordy Vázquez; Joshua Brito; Lelo Zurita; Monty Mcgrath; Yanique Goins; Sy Heath; Keke Underwood; Jose Collins; Angelica Escobar; Trino Lind; Lauren Falcon; Jourdan Brice; Renée Fields Discharge Orders/Prescriptions Prescriptions: Continued aspirin [Rahul Chewable Aspirin] 81 mg tablet,chewable 81 mg PO DAILY warfarin 1 mg tablet 1 mg PO .COMPLEX Protocol: Dose Management Condition: Wednesday Dose/Route: 5 mg Instruction: 1 x 5 mg tablet Condition: Wednesday Dose/Route: 5 mg Instruction: 1 x 5 mg tablet Condition: Wednesday Dose/Route: 2.5 mg Instruction: 0.5 x 5 mg tablets Condition: Wednesday Dose/Route: 5 mg Instruction: 1 x 5 mg tablet Condition: Dose/Route: 2.5 mg Instruction: 0.5 x 5 mg tablets Condition: Wednesday Dose/Route: 5 mg Instruction: 1 x 5 mg tablet Condition: Wednesday Dose/Route: 5 mg Instruction: 1 x 5 mg tablet Protocol Text: Adjustment Start Date: Wednesday12/05/24 INR Value: 4.0 INR Date: 10/30/24 Recheck Date: 12/19/24 Rx Instructions: 1 mg orally as directed for dose changes; Managed by PCP spironolactone 25 mg tablet 25 mg PO DAILY Qty: 90 3RF Rx Instructions: Hold for serum potassium more than 5.0 albuterol sulfate 90 mcg/actuation HFA aerosol inhaler 2 puff inhalation Q4H PRN (Reason: shortness of breath or wheezing) Qty: 8.5 11RF budesonide-formoterol [Symbicort] 160-4.5 mcg/actuation HFA aerosol inhaler 2 inh inhalation BID Qty: 1 11RF Rx Instructions: administer with spacer, rinse mouth after each use (DME) spacer See Rx Instructions .ROUTE .MEDSUPPLY Qty: 1 0RF Rx Instructions: As directed metoprolol succinate [Toprol XL] 50 mg tablet extended release 24 hr 50 mg PO QDAY Qty: 180 3RF warfarin 5 mg tablet 5 mg PO DAILY Qty: 100 3RF Protocol: Dose Management Condition: Wednesday Dose/Route: 5 mg Instruction: 1 x 5 mg tablet Condition: Wednesday Dose/Route: 5 mg Instruction: 1 x 5 mg tablet Condition: Wednesday Dose/Route: 2.5 mg Instruction: 0.5 x 5 mg tablets Condition: Wednesday Dose/Route: 5 mg Instruction: 1 x 5 mg tablet Condition: Dose/Route: 2.5 mg Instruction: 0.5 x 5 mg tablets Condition: Wednesday Dose/Route: 5 mg Instruction: 1 x 5 mg tablet Condition: Wednesday Dose/Route: 5 mg Instruction: 1 x 5 mg tablet Protocol Text: Adjustment Start Date: Wednesday12/05/24 INR Value: 4.0 INR Date: 10/30/24 Recheck Date: 12/19/24 Patient Comments: daughter states takes 5mg daily and occasionally gets bumped up to 7.5mg but not often Rx Instructions: Take 1 tab (5mg) Wed/Wed/Wed/Wed/Sat and 0.5 tab (2.5mg) /.; or use as directed Farxiga 10 mg tablet 10 mg PO DAILY Qty: 90 3RF Changed torsemide 20 mg tablet 20 mg PO DAILY Qty: 180 3RF Referrals / Follow Up: Roseline Barakat MD [Primary Care Provider] - (As scheduled) Disposition Disposition (needs filled in before D/C Order can be placed): Home, Self Care
--- NOTE | 2025-01-26 12:44 | DS.PCM_ITS ---
Providers Date of Admission: 01/25/25 Date of Discharge: 01/26/25 Primary Care Physician: Dr. Roseline Barakat MD Consultations 01/25/25 16:25 Consult: Tele-Neurology Routine Consulting Provider: [facility] Reason for Consult: Acute Ischemic Stroke/TIA EMERGENT Consult: No MD Notified: Yes Date Notified: 01/25/25 Time Notified: 13:47 Method of Notification: ED Physician Initiated Nursing Unit Staff Notify [facility] of Tele-Neurology Consult: Yes Reason For Visit: TIA Diagnosis Discharge Diagnosis (1) TIA (transient ischemic attack): Status: Acute Code(s): G45.9 - Transient cerebral ischemic attack, unspecified Plan 1. Dehydration-secondary to use of prescribed diuretics and Farxiga #2 acute weakness secondary to dehydration #3 chronic atrial fibrillation #4 hypertrophic cardiomyopathy #5 chronic kidney disease stage IIIb TIA was ruled out Medications at Discharge Home Medications aspirin 81 mg chewable tablet (Rahul Chewable Low Dose Aspirin) 81 mg PO DAILY heart health 07/08/22 spacer #1 ea 11/26/22 warfarin 1 mg tablet 1 mg PO .COMPLEX blood thinner 12/03/22 metoprolol succinate 50 mg tablet,extended release 24 hr (Toprol XL) 50 mg PO QDAY blood pressure #180 tabs 05/22/24 spironolactone 25 mg tablet 25 mg PO DAILY diuretic #90 tabs 12/12/24 warfarin 5 mg tablet 5 mg PO DAILY blood thinner #100 tabs 01/04/25 albuterol sulfate 90 mcg/actuation aerosol inhaler 2 puff inhalation Q4H PRN shortness of breath or wheezing #8.5 grams 01/09/25 budesonide-formoterol HFA 160 mcg-4.5 mcg/actuation aerosol inhaler (Symbicort) 2 inh inhalation BID #1 ea 01/09/25 dapagliflozin propanediol 10 mg tablet (Farxiga) 10 mg PO DAILY diabetes #90 tabs 01/22/25 torsemide 20 mg tablet 20 mg PO DAILY #180 tabs 01/26/25 Hospital Course Operations None Procedures 2-D Echocardiogram Summary of Care Provided Minutes Spent on Discharge: 31 Hospital Course: 69-year-old female was seen in the emergency room at [facility] for evaluation of acute weakness, patient had been walking around in the nursery and her legs gave out- daughter attempted to lift the patient up and her left leg was weak. Patient stated her symptoms were improving, she denied any paresthesias. Workup in the ER included a CT of the brain which showed no evidence of bleed, CTA of the head and neck was obtained-there is minimal plaque formation at the origin of the left internal carotid artery. Labs showed an elevated creatinine at 1.59 and BUN was 31. CBC was unremarkable, patient's INR was 2.7, initial troponin was elevated at 135, repeat troponins were 121 at 122. Patient was not a candidate for any thrombolytic therapy due to the fact she was on warfarin for mechanical heart valve. Patient's bilirubin was elevated at 1.74 and magnesium was 2.5. Patient was placed in observation status on PCU, echocardiogram was obtained which was unchanged from her previous echocardiogram, no evidence of thrombus was noted. Patient refused to undergo a second brain CT and refused neurological consultation via teleneurology. I reviewed the case with the patient's daughter, I felt that the patient most likely was dehydrated due to her combination of diuretics and Farxiga. On 01/26/2025, patient was seen and examined: On examination she appeared in good health and spirits, she does not appear to be in any distress. Vital signs as documented. Skin warm and dry and without overt rashes. Neck without JVD, thyroid appears normal, trachea is midline, neck is supple. Lungs clear, normal air movement was noted. Heart exam notable for regular rhythm, there is noted to be mechanical heart valve sound, no rubs or gallops. Abdomen unremarkable and without evidence of organomegaly, masses, or abdominal aortic enlargement, bowel sounds are present in all 4 quadrants, no abdominal tenderness was noted. Extremities nonedematous, no cyanosis was noted, no clubbing was noted. Neuro: Cranial nerves II through XII are grossly intact, no focal motor deficits were noted, sensation to light touch and pinprick is intact, motor exam 5/5 throughout. Psych: Patient is alert and oriented x3, she does not appear anxious or depressed, she does not appear agitated. Patient was discharged home in stable condition on 01/26/2025 Weight / BMI Weight Weight: 60.6 kg Body Mass Index (BMI) 21.5 ABG / Lab / Microbiology Data 01/26/25 03:54 01/26/25 03:54 Laboratory: Laboratory Results - last 24 hr 01/25/25 11:57: POC Glucose 134 H 01/25/25 11:59: Sodium 138, Potassium 4.0, Chloride 106, Carbon Dioxide 18.5 L, Anion Gap 14, BUN 31 H, Creatinine 1.59 H, Estim Creat Clear Calc 29.63 L, Est GFR (MDRD) Non-Af 35 L, BUN/Creatinine Ratio 19.2, Glucose 132 H, Calcium 9.4, M agnesium 2.4 H, Troponin T High Sens 135 H* 01/25/25 14:06: Troponin T Hi Sens 2 Hr 121 H* 01/25/25 17:20: Troponin T Hi Sens 4Hr 122 H* 01/26/25 03:54: WBC 4.5, RBC 4.22, Hgb 12.4, Hct 38.2, MCV 90.5, MCH 29.4, MCHC 32.5, RDW Std Deviation 50.3 H, RDW Coeff of Sona 15.4 H, Plt Count 143 L, MPV 10.5, Immature Gran % (Auto) 0.400, Neut % (Auto) 55.5, Lymph % (Auto) 26.7, M maurice % (Auto) 12.8 H, Eos % (Auto) 3.5, Baso % (Auto) 1.1 H, Absolute Neuts (auto) 2.5, Absolute Lymphs (auto) 1.21, Nucleated RBC % 0, PT 30.3 H, INR 2.8, Sodium 140, Potassium 3.9, Chloride 109 H, Carbon Dioxide 19.5 L, Anion Gap 12, BUN 22 H, Creatinine 1.28 H, Estim Creat Clear Calc 38.29 L, Est GFR (MDRD) Non- Af 45 L, BUN/Creatinine Ratio 17.3, Glucose 79, Hemoglobin A1c 5.9 H, Calcium 9.4, Magnesium 2.5 H, Total Bilirubin 1.74 H, AST 33 H, ALT 24, Alkaline Phosphatase 55, Total Protein 6.0, Albumin 3.8, Globulin 2.3, Albumin/Globulin Ratio 1.7, Triglycerides 67, Cholesterol 105, LDL Cholesterol, Calc 49, VLDL Cholesterol 13, HDL Cholesterol 43, Cholesterol/HDL Ratio 2.47, TSH 0.744 D/C Instructions Discharge Diet: No restrictions Weight Bearing Status: Full weight bearing DC O2, CPAP, BIPAP Needs Home O2 Discharge instructions: No Meaningful Use Info Meaningful Use Meaningful Use Diagnoses (Choose all that apply): None applicable Ischemic Stroke Statin Dosing Therapy Reference: STATIN DOSE THERAPY REFERENCE: * Patients > 75 years receive moderate or high dose statin therapy. * Patients 75 years or YOUNGER should receive HIGH intensity statin dose unless contraindicated. You will be required to document reason for non-treatment if statin daily dose does not meet guidelines. HIGH DOSE STATIN THERAPY DAILY Atorvastatin > than or = to 40 mg Rosuvastatin > than or = to 20 mg Amlodipine + Atorvastatin > than or = to 2.5/40 mg Ezetimibe + Simvastatin 10/80 mg Simvastatin 80mg Discharge Plan Admission Admit Date/Time: 01/25/25 13:44 Primary Reason for Your Visit: Transient weakness-etiology unclear, doubt TIA Attending Provider: Guero Warren Primary Care Provider: Roseline Barakat Consulting Providers: Edu Fletcher; Concepcion Rosenberg; Mel Ochoa; Ele Matthews; Jenelle Henson; Ian Smith; Jaylin Mchugh; Delvis Latham; Yordy Vázquez; Joshua Brito; Lelo Zurita; Monty Mcgrath; Yanique Goins; Sy Heath; Keke Underwood; Jose Collins; Angelica Escboar; Trino Lind; Lauren Falcon; Jourdan Brice; Renée Fields Discharge Orders/Prescriptions Prescriptions: Continued aspirin [Rahul Chewable Aspirin] 81 mg tablet,chewable 81 mg PO DAILY warfarin 1 mg tablet 1 mg PO .COMPLEX Protocol: Dose Management Condition: Wednesday Dose/Route: 5 mg Instruction: 1 x 5 mg tablet Condition: Wednesday Dose/Route: 5 mg Instruction: 1 x 5 mg tablet Condition: Wednesday Dose/Route: 2.5 mg Instruction: 0.5 x 5 mg tablets Condition: Wednesday Dose/Route: 5 mg Instruction: 1 x 5 mg tablet Condition: Dose/Route: 2.5 mg Instruction: 0.5 x 5 mg tablets Condition: Wednesday Dose/Route: 5 mg Instruction: 1 x 5 mg tablet Condition: Wednesday Dose/Route: 5 mg Instruction: 1 x 5 mg tablet Protocol Text: Adjustment Start Date: Wednesday12/05/24 INR Value: 4.0 INR Date: 10/30/24 Recheck Date: 12/19/24 Rx Instructions: 1 mg orally as directed for dose changes; Managed by PCP spironolactone 25 mg tablet 25 mg PO DAILY Qty: 90 3RF Rx Instructions: Hold for serum potassium more than 5.0 albuterol sulfate 90 mcg/actuation HFA aerosol inhaler 2 puff inhalation Q4H PRN (Reason: shortness of breath or wheezing) Qty: 8.5 11RF budesonide-formoterol [Symbicort] 160-4.5 mcg/actuation HFA aerosol inhaler 2 inh inhalation BID Qty: 1 11RF Rx Instructions: administer with spacer, rinse mouth after each use (DME) spacer See Rx Instructions .ROUTE .MEDSUPPLY Qty: 1 0RF Rx Instructions: As directed metoprolol succinate [Toprol XL] 50 mg tablet extended release 24 hr 50 mg PO QDAY Qty: 180 3RF warfarin 5 mg tablet 5 mg PO DAILY Qty: 100 3RF Protocol: Dose Management Condition: Wednesday Dose/Route: 5 mg Instruction: 1 x 5 mg tablet Condition: Wednesday Dose/Route: 5 mg Instruction: 1 x 5 mg tablet Condition: Wednesday Dose/Route: 2.5 mg Instruction: 0.5 x 5 mg tablets Condition: Wednesday Dose/Route: 5 mg Instruction: 1 x 5 mg tablet Condition: Dose/Route: 2.5 mg Instruction: 0.5 x 5 mg tablets Condition: Wednesday Dose/Route: 5 mg Instruction: 1 x 5 mg tablet Condition: Wednesday Dose/Route: 5 mg Instruction: 1 x 5 mg tablet Protocol Text: Adjustment Start Date: Wednesday12/05/24 INR Value: 4.0 INR Date: 10/30/24 Recheck Date: 12/19/24 Patient Comments: daughter states takes 5mg daily and occasionally gets bumped up to 7.5mg but not often Rx Instructions: Take 1 tab (5mg) Sun/Wed/Wed/Wed/Sat and 0.5 tab (2.5mg) /.; or use as directed dapagliflozin propanediol [Farxiga] 10 mg tablet 10 mg PO DAILY Qty: 90 3RF Changed torsemide 20 mg tablet 20 mg PO DAILY Qty: 180 3RF Referrals / Follow Up: Roseline Barakat MD [Primary Care Provider] - (As scheduled) Disposition Disposition (needs filled in before D/C Order can be placed): Home, Self Care Charges/Coding Visit Charges Inpatient E&M: 96260 Disch Hosp >30min
--- NOTE | 2025-01-26 12:47 | CASEMGMT ---
No PT or ST recommended. RN CM into pt room, pt standing up walking in room talking on phone. Pt finished conversation. Pt denies any homegoing needs. Pt states she is typically indep at home. Pt anxious to dc home.
--- NOTE | 2025-01-26 13:48 | CASEMGMT ---
SW did not complete a PHQ9 as patient did not have a Stroke or TIA. Megan LIRA
--- NOTE | 2025-01-26 13:52 | PHA.DC.MR.R ---
Pharmacy [place] Med Reconciliation Pharmacy Service has performed discharge medication reconciliation for this patient. The patient's discharge medication list was reviewed for discrepancies and discrepancies were resolved. Medications at Discharge Home Medications aspirin 81 mg chewable tablet (Rahul Chewable Low Dose Aspirin) 81 mg PO DAILY heart health 07/08/22 spacer #1 ea 11/26/22 warfarin 1 mg tablet 1 mg PO .COMPLEX blood thinner 12/03/22 metoprolol succinate 50 mg tablet,extended release 24 hr (Toprol XL) 50 mg PO QDAY blood pressure #180 tabs 05/22/24 spironolactone 25 mg tablet 25 mg PO DAILY diuretic #90 tabs 12/12/24 warfarin 5 mg tablet 5 mg PO DAILY blood thinner #100 tabs 01/04/25 albuterol sulfate 90 mcg/actuation aerosol inhaler 2 puff inhalation Q4H PRN shortness of breath or wheezing #8.5 grams 01/09/25 budesonide-formoterol HFA 160 mcg-4.5 mcg/actuation aerosol inhaler (Symbicort) 2 inh inhalation BID #1 ea 01/09/25 dapagliflozin propanediol 10 mg tablet (Farxiga) 10 mg PO DAILY diabetes #90 tabs 01/22/25 torsemide 20 mg tablet 20 mg PO DAILY #180 tabs 01/26/25
[2025-01-26 15:30] VITALS: BMI 21.5
== END 2025-01-26 12:44 | disposition home or self-care (01) ==
LOC: ED 14:25 → PCU 15:34
PROVIDERS: Internal Medicine; Admitting Provider Family Medicine; Emergency Provider Emergency Medicine; PCP Internal Medicine; Visit Provider Internal Medicine
DX: E86.0 Dehydration (principal); I48.20 Chronic atrial fibrillation, unspecified; I42.2 Other hypertrophic cardiomyopathy; N18.30 Chronic kidney disease, stage 3 unspecified; Z79.01 Long term (current) use of anticoagulants; Z79.82 Long term (current) use of aspirin; R29.898 Other symptoms and signs involving the musculoskeletal system; R79.89 Other specified abnormal findings of blood chemistry; Z87.891 Personal history of nicotine dependence; I25.10 Atherosclerotic heart disease of native coronary artery without angina pectoris; E78.5 Hyperlipidemia, unspecified; Z90.710 Acquired absence of both cervix and uterus; Z95.0 Presence of cardiac pacemaker; Z99.89 Dependence on other enabling machines and devices; G47.33 Obstructive sleep apnea (adult) (pediatric); E03.9 Hypothyroidism, unspecified; Z95.2 Presence of prosthetic heart valve; J45.909 Unspecified asthma, uncomplicated; I12.9 Hypertensive chronic kidney disease with stage 1 through stage 4 chronic kidney disease, or unspecified chronic kidney disease
CPT/HCPCS: 36415; 70450; 70496; 70498; 80048; 80053; 80061; 82962; 83036; 83735; 84443; 84484; 85025; 85610; 85730; 92610; 93005; 93306; 94640; 94660; 94668; 94762; 97161; 97802; 99221; 99252; 99285; Q9967; A4216; G0378; G0463

== ENCOUNTER → 2025-02-08 | Outpatient (CLI) | payer MEDICARE, OTHER, SELFPAY ==
--- NOTE | 2025-02-08 14:15 | RAD_ITS ---
PROCEDURE: CHEST PA AND LATERAL 02/08/2025 REASON FOR EXAM: SHORTNESS OF BREATH, CHF TECHNIQUE: Frontal and lateral views of the chest. COMPARISON: 04/14/2023 FINDINGS: Appearance of mild vascular congestion, possible mild pulmonary edema. No pleural effusion seen. Hyperinflation and increased thoracic kyphosis with a few anterior wedge vertebral deformities again noted. Cardiac silhouette again enlarged with note of previous sternotomy, mitral valve replacement and AICD. RAD/Chest PA and Lateral IMPRESSION: Appearance of mild vascular congestion, possible mild pulmonary edema. No pleural effusion seen. Hyperinflation and increased thoracic kyphosis with a few anterior wedge verteb ral deformities again noted. Cardiac silhouette again enlarged with note of previous sternotomy, mitral valv e replacement and AICD. Reading Location: [id number]
[2025-02-08 15:49] LABS: Absolute Lymphocyte Count 0.78 X10^3/uL (0.83-4.51); Absolute Neutrophil Count 5.6 X10^3/uL (2.0-7.7); Basophil# 0.02 X10^3/uL; Basophil% 0.3 % (0-1); Eosinophil# 0.02 X10^3/uL; Eosinophils% 0.3 % (0-5); Hematocrit 41.2 % (37-47); Hemoglobin 12.9 g/dL (12.0-15.0); Lymphocyte # 0.78 X10^3/ul (0.83-4.51); Lymphocyte % 11.6 % (19-41); Mean Corp Hgb Conc 31.3 g/dL (32-36); Mean Corpuscular Hgb 28.6 pg (27.0-32.0); Mean Corpuscular Volume 91.4 fL (81-99); Monocyte# 0.34 X10^3/uL; NRBC Flagged by Analyzer 0 % (0-5); Neutrophil # 5.55 X10^3/uL (2.7-7.7); Neutrophil % 82.4 % (47-70); Platelet Count 209 K/mm3 (150-450); RBC Distribution Width CV 15.8 % (11.6-14.6); RBC Distribution Width SD 52.2 fl (35.1-43.9); Red Blood Count 4.51 M/mm3 (4.2-5.4); White Blood Count 6.7 K/mm3 (4.4-11.0)
[2025-02-08 16:45] LABS: ALB/GLOB Ratio 1.6 RATIO (0.9-2.4); AST(SGOT) 35 U/L (<=31); Alanine Aminotransfer ALT/SGPT 23 U/L (<=34); Albumin, Serum 4.2 g/dL (3.4-4.8); Alkaline Phosphatase 62 U/L (35-104); Anion Gap 14 (5-15); BUN 35 mg/dL (4-19); BUN/Creat Ratio 17.9 RATIO (10-20); Calcium,Total 9.5 mg/dL (7.6-11.0); Carbon Dioxide 23.2 mmol/L (21.0-32.0); Chloride 103 mmol/L (98-108); Creatinine, Serum 1.94 mg/dL (0.70-1.20); EST Glomerular Filtration Rate 27 (>60); Globulin 2.6 g/dL (2.2-4.2); Glucose 117 mg/dL (70-99); Potassium 3.9 mmol/L (3.3-5.1); Pro- Brain NATRIURETIC PEPTIDE 3153 pg/mL (<=900); Protein, Total 6.8 g/dL (5.9-8.4); Sodium Level 140 mmol/L (133-145); Thyroid Stim Hormone (TSH) 0.496 uIU/mL (0.300-4.200); Total Bilirubin 1.89 mg/dL (0.00-1.30)
== END | disposition home or self-care (01) ==
LOC: RAD 13:54
PROVIDERS: PCP Internal Medicine; Referring Provider Physician Assistant Medical; Visit Provider Physician Assistant Medical
DX: I50.22 Chronic systolic (congestive) heart failure (principal); N18.32 Chronic kidney disease, stage 3b; R53.83 Other fatigue
CPT/HCPCS: 36415; 71046; 80053; 83880; 84443; 85025

== ENCOUNTER → 2025-02-22 | Outpatient (CLI) | payer MEDICARE, OTHER, SELFPAY | END | disposition home or self-care (01) | LOC: SL 09:34 | PROVIDERS: PCP Internal Medicine; Referring Provider Nurse Practitioner Acute Care; Visit Provider Nurse Practitioner Acute Care | DX: G47.31 Primary central sleep apnea (principal) | CPT/HCPCS: 98960; G0463 ==

== ENCOUNTER → 2025-02-23 | Outpatient (CLI) | payer MEDICARE, OTHER, SELFPAY | END | disposition home or self-care (01) | LOC: SL 12:00 | PROVIDERS: PCP Internal Medicine; Referring Provider Nurse Practitioner Acute Care; Visit Provider Nurse Practitioner Acute Care | DX: Z00.00 Encounter for general adult medical examination without abnormal findings (principal) ==

== ENCOUNTER → 2025-03-06 | Outpatient (CLI) | payer MEDICARE, OTHER, SELFPAY ==
[2025-03-06 13:08] LABS: Absolute Neutrophil Count 4.1 X10^3/uL (2.0-7.7); Basophil# 0.02 X10^3/uL; Basophil% 0.3 % (0-1); Eosinophil# 0.12 X10^3/uL; Hematocrit 41.6 % (37-47); Lymphocyte % 16.7 % (19-41); Mean Corp Hgb Conc 31.3 g/dL (32-36); Mean Corpuscular Hgb 28.5 pg (27.0-32.0); Mean Corpuscular Volume 91.2 fL (81-99); Mean Platelet Vol. 9.7 fl (6.2-12.0); Monocyte# 0.68 X10^3/uL; Monocyte% 11.4 % (0-10); NRBC Flagged by Analyzer 0 % (0-5); Neutrophil # 4.14 X10^3/uL (2.7-7.7); Neutrophil % 69.3 % (47-70); Platelet Count 173 K/mm3 (150-450); RBC Distribution Width CV 16.3 % (11.6-14.6); RBC Distribution Width SD 53.6 fl (35.1-43.9); Red Blood Count 4.56 M/mm3 (4.2-5.4)
[2025-03-06 13:31] LABS: Anion Gap 10 (5-15); BUN 40 mg/dL (4-19); BUN/Creat Ratio 25.7 RATIO (10-20); Calcium,Total 9.8 mg/dL (7.6-11.0); Carbon Dioxide 25.5 mmol/L (21.0-32.0); Chloride 106 mmol/L (98-108); Creatinine, Serum 1.55 mg/dL (0.70-1.20); EST Glomerular Filtration Rate 36 (>60); Glucose 105 mg/dL (70-99); Potassium 4.7 mmol/L (3.3-5.1); Sodium Level 141 mmol/L (133-145)
[2025-03-06 13:34] LABS: Pro- Brain NATRIURETIC PEPTIDE 2725 pg/mL (<=900)
== END | disposition home or self-care (01) ==
LOC: LAB 12:29
PROVIDERS: PCP Internal Medicine; Referring Provider Student in an Organized Health Care Education/Training Program; Visit Provider Student in an Organized Health Care Education/Training Program
DX: R06.00 Dyspnea, unspecified (principal); I50.22 Chronic systolic (congestive) heart failure; N18.32 Chronic kidney disease, stage 3b
CPT/HCPCS: 36415; 80048; 83880; 85025

== ENCOUNTER → 2025-03-06 | Outpatient (CLI) | payer MEDICARE, OTHER, SELFPAY ==
--- OUTSIDE RECORDS SUMMARY | 2025-03-06 22:04 | XMS RPT_ITS | CCD ---
Author Organization [facility] Care Team Providers Care Music Leader Name Role Phone YENIFER SEGOVIA Unavailable Unavailable YENIFER SEGOVIA Unavailable Unavailable YENIFER SEGOVIA Unavailable Unavailable Dane Gant Unavailable Unavailable Dane Gant Unavailable Unavailable GERRY ABBASI Unavailable Unavailable MD BROOKS Unavailable Unavailable MD BROOKS Unavailable Unavailable Gerry Abbasi Unavailable Unavailabl e MD DARYL Unavailable Unavailable MD DARYL Unavailable Unavailable DepGerry christian R Unavailable Unavailabl e SPARANO, ONEYDA Unavailable Unavailable SPARANO, ONEYDA Unavailable Unavailable Gerry Abbasi R Unavailable Unavailabl e MD BROOKS Unavailable Unavailable MD BROOKS Unavailable Unavailable Gerry Abbasi R Unavailable Unavailabl e Sparano, Oneyda Hannah Unavailable Unavailable Sparano, Oneyda Hannah Unavailable Unavailable UNKNOWN, PCP Unavailable Unavailable Sparano, Oneyda Hannah Unavailable Unavailable Sparano, Oneyda Hannah Unavailable Unavailable UNKNOWN, PCP Unavailable Unavailable JARETH CRAWFORD Unavailable Unavailabl e GURWINDER ROLAND Unavailable Unavail able Sparano, Oneyda Hannah Unavailable Unavailable UNKNOWN, PCP Unavailable Unavailable Sparano, Oneyda Hannah Attending Unavailable Sparano, Oneyda Hannah Referring Unavailable UNKNOWN, PCP Primary Care Unavailable Sparano, Oneyda Hannah Attending Unavailable Sparano, Oneyda Hannah Referring Unavailable UNKNOWN, PCP Primary Care Unavailable Sparano, Oneyda Hannah Attending Unavailable Sparano, Oneyda Hannah Referring Unavailable UNKNOWN, PCP Primary Care Unavailable Sparano, Oneyda Hannah Admitting Unavailable UNKNOWN Referring Unavailable UNKNOWN, PCP Primary Care Unavailable Mitzi Varela Attending Unavailable Sparano, Oneyda Hannah Attending Unavailable Sparano, Oneyda Hannah Referring Unavailable UNKNOWN, PCP Primary Care Unavailable Sparano, Oneyda Hannah Attending Unavailable Sparano, Oneyda Hannah Referring Unavailable UNKNOWN, PCP Primary Care Unavailable Sparano, Oneyda Hannah Admitting Unavailable Sparano, Oneyda Hannah Attending Unavailable Sparano, Oneyda Hannah Referring Unavailable UNKNOWN, PCP Primary Care Unavailable Nubia Ruiz Attending Unavailable Nubia Ruiz Referring Unavailable UNKNOWN, PCP Primary Care Unavailable Nubia Ruiz Attending Unavailable Nubia Ruiz Referring Unavailable UNKNOWN, PCP Primary Care Unavailable Arafah, Bahauddin Mahmoud Admitting Unavai lable Arafah, Bahauddin Mahmoud Attending Unavai lable Arafah, Bahauddin Mahmoud Referring Unavai lable UNKNOWN, PCP Primary Care Unavailable Yordy Allen MD Primary Care Provider Oneyda Guy MD Unavailable [phone] Yordy Allen MD Primary Care Provider Oneyda Guy MD Unavailable Yordy Allen MD Primary Care Provider YORDY ALLEN Primary Care Unavailable SPARANO, ONEYDA Admitting Unavailable SPARANO, ONEYDA Attending Unavailable JARED PETER Attending Unavailable CURTIS OVALLE Consulting Unavailable DIFRANCO, AHALYA Admitting Unavailable YORDY ALLEN Primary Care Unavailable SEKOU, BECKY N Referring Unavailable YORDY ALLEN Primary Care Unavailable XANDER ISLASJO Attending Unavailable WENDY ISLASNJO Referring Unavailable YORDY ALLEN Primary Care Unavailable WEN VALDIIVA Referring Unavailable YORDY ALLEN Primary Care Unavailable YORDY ALLEN Primary Care Unavailable SPARANO, ONEYDA Admitting Unavailable MAVISANO, ONEYDA Attending Unavailable MD LEYVA CHRISTOPHER Attending Unavail able CARLOS SHELDON Admitting Unavailable YORDY ALLEN Primary Care Unavailable WEN VALDIVIA Attending Unavailable CARLOS SHELDON Admitting Unavailable JUAN GIL Consulting Unavailable YORDY ALLEN Primary Care Unavailable YORDY ALLEN Primary Care Unavailable SPARANO, ONEYDA Admitting Unavailable SPARANO, ONEYDA Attending Unavailable Lizette SHEEP CLIPPER, MICHEL Rosen Attending Provider Yordy Allen MD Primary Care Provider Oneyda Guy MD Unavailable Dr. Yordy Allen Primary Care Provider Dr. Trevor Barajas Attending Provider Dr. Kendra Harden Attending Provider Dr. Jose Reeves Emergency Provider Dr. Thom Stahl Admit Provider Dr. Thom Stahl Other Provider Dr. Kendra Harden Other Provider Dr. Herb Wne Attending Provider Dr. Herb Wen Other Provider Dr. Sukhdev Rodriguez Other Provider Unavailable Lizette SHEEP CLIPPER, SHEEP CLIPPER-C Jessika Referring Provider Lizette SHEEP CLIPPER, SHEEP CLIPPER-C Jessika Other Provider Dr. Jin Parekh Attending Provider Dr. Yordy Allen Referring Provider Dr. Kody Estrada Attending Provider Dr. Yordy Allen Primary Care Provider Dr. Yordy Allen Referring Provider Lizette SHEEP CLIPPER, SHEEP CLIPPER-C Jessika Attending Provider [phone], [place] Jeanette Nance Attending Provider Dr. Trevor Barajas Attending Provider Oneyda Guy MD Unavailable Dr. Yordy Allen Primary Care Provider Dr. Yordy Allen Referring Provider Dr. Roseline Barakat Attending Provider Dr. Yordy Allen Attending Provider Dr. Roseline Barakat Primary Care Provider Dr. Trevor Barajas Attending Provider Lizette SHEEP CLIPPER, SHEEP CLIPPER-C Jessika Attending Provider AlexisYENIFER Watkins Attending Provider Dr. Enrrique Velez Attending Provider Dr. Yordy Allen Primary Care Provider [phone] Dr. Yordy Allen Referring Provider [phone] Dr. Roseline Barakat Attending Provider [phone] Dr. Yordy Allen Primary Care Provider [phone] Dr. Yordy Allen Attending Provider [phone] Dr. Roseline Barakat Referring Provider [phone] Brooks ENRIQUEZ, Oneyda Young Unavailable YORDY ALLEN Primary Care Unavailable YORDY ALLEN Referring Unavailable NIENRIQUETA, SOAMSIRI Referring Unavail able YORDY ALLEN Primary Care Unavailable NIFRANCESCOONG, SOAMSIRI Attending Unavail able YORDY ALLEN Primary Care Unavailable Dr. Yordy Allen Referring Provider [phone] Lizette SHEEP CLIPPER, SHEEP CLIPPER-C Jessika Attending Provider [phone] Dr. Roseline Barakat Primary Care Provider YENIFER Mc Attending Provider Dr. Trevor Barajas Attending Provider Dr. Enrrique Velez Attending Provider Dr. Roseline Barakat Attending Provider [phone] Dr. Roseline Barakat Referring Provider [phone] Dr. Roseline Barakat Primary Care Provider Dr. Trevor Barajas Attending Provider YENIFER Mc Attending Provider Dr. Roseline Barakat Attending Provider [phone] Dr. Yordy Allen Primary Care Provider [phone] Dr. Yordy Allen Attending Provider [phone] Dr. Roseline Barakat Primary Care Provider Yuval ENRIQUEZ Dr. Roseline Primary Care Provider Karl ENRIQUZE, Dr. Murray Attending Provider King ZOE, Dr. Osuna Attending Provider King ZOE, Dr. Osuna Referring Provider Yuval ENRIQUEZ, Dr. Dukes Attending Provider Yuval ENRIQUEZ, Dr. Dukes Referring Provider Roof SHEEP CLIPPER-C, Kong H Attending Provider Roof SHEEP CLIPPER-C, Kong H Referring Provider Yuval ENRIQUEZ, Dr. Dukes Primary Care Provider Karl ENRIQUEZ, Dr. Murray Attending Provider Jada Rodriguez Attending Provider Unavailable Bauer SHEEP CLIPPER-C, Jessika Attending Provider Zia DE LA FUENTE, Dr. Garsai Emergency Provider Diamond ENRIQUEZ, Dr. Renée Bautista Attending Provider Diamond ENRIQUEZ, Dr. Renée Bautista Admit Provider Chance ENRIQUEZ, Edu Other Provider Unavailable Chet ENRIQUEZ, Dr. Javier Other Provider [phone] Mel Ochoa MD Other Provider Unavailable Dr. Ele Matthews DO Other Provider [phone] Natividad ENRIQUEZ, Dr. Almanzar Other Provider [phone] Luis ENRIQUEZ, Dr. Sosa Other Provider [phone] Lolita ENRIQUEZ, Dr. Mosqueda Other Provider Yeison ENRIQUEZ, Dr. Edmondson Other Provider [phone] Gurpreet ENRIQUEZ, Dr. Scales Other Provider Daryl ENRIQUEZ, Dr. Lewis Other Provider [phone] Lelo Zurita MD Other Provider Ramila ENRIQUEZ, Dr. Millan Other Provider [phone] Buster ENRIQUEZ, Dr. Chanel Other Provider Ivana ENRIQUEZ Dr. Dan Other Provider Yasmine ENRIQUEZ, Dr. Keke Woodward Other Provider Dennis ENRIQUEZ, Dr. Garcia Other Provider Shawn ENRIQUEZ, Dr. Dominguez Other Provider Diogo ENRIQUEZ, Dr. Jameson Other Provider [phone] Ezekiel ENRIQUEZ, Dr. Aguilar Other Provider Unavailable Babs ENRIQUEZ, Jourdan Other Provider Unavailable Diamond ENRIQUEZ, Dr. Renée Bautista Other Provider Briana DE LA FUENTE, Dr. Jack Attending Provider Dr. Yordy Warren DO Other Provider Jeanette Mc Attending Provider Jeanette Mc Referring Provider Yuval ENRIQUEZ, Dr. Dukes Primary Care Provider [phone] Karl ENRIQUEZ, Dr. Murray Attending Provider Yuval ENRIQUEZ, Dr. Dukes Primary Care Provider [phone] Yuval ENRIQUEZ, Dr. Dukes Referring Provider Dr. Roseline Barakat MD Attending Provider Lizette SHEEP CLIPPER-C, Jessika Referring Provider Yuval, Roseline Primary Care Unavailable Karl, Trevor Attending Unavailable Garibaldi, Roseline Primary Care Unavailable Karl Trevor Attending Unavailable Garibaldi, Roseline Primary Care Unavailable Garibaldi, Roseline Attending Unavailable Garibaldi, Roseline Attending Unavailable Yuval, Roseline Primary Care Unavailable Karl, Schoolcraft Attending Unavailable Garibaldi, Roseline Primary Care Unavailable Garibaldi, Roseline Referring Unavailable Lizette SHEEP CLIPPER, Jessika Attending Unavailable Yuval, Roseline Primary Care Unavailable Lizette SHEEP CLIPPER, Jessika Attending Unavailable Garibaldi, Roseline Primary Care Unavailable Garibaldi, Roseline Referring Unavailable Yuval, Roseline Primary Care Unavailable Yuval, Roseline Referring Unavailable Enrrique Velez Attending Unavailable Yuval, Roseline Referring Unavailable Garibaldi, Roseline Primary Care Unavailable Vanesa STREET, Jeanette Nance Attending Unavail able Chance, Edu Consulting Unavailable Yuval, Roseline Primary Care Unavailable White Renée L Admitting Unavailable Yordy Warren Attending Unavailable Adeli, Amir Consulting Unavailable Hinduja, Mel Consulting Unavailable Byron, Ele Consulting Unavailable Zha, Jenelle Consulting Unavailable Luis, Ian Consulting Unavailable Lolita, Jaylin Consulting Unavailable Bittar, Delvis Consulting Unavailable Vázquez, Julia Consulting Unavailable Brito, Joshua Consulting Unavailable Beigel, Lelo Consulting Unavailable Gusler, Monty Consulting Unavailable Buster, Yanique Consulting Unavailable Ridha, Mohamed Consulting Unavailable Zaghlouleh, Mhd Trace Consulting UnavailJose Burger Consulting Unavailable Escobar, Rami Consulting Unavailable Diogo, Trino Consulting Unavailable Ezekiel, Lauren Consulting Unavailable Hannawi, Yousef Consulting Unavailable White, Renée L Consulting Unavailable Tereletsky, Yordy Consulting Unavailable White, Renée L Attending Unavailable Garibaldi, Roseline Primary Care Unavailable White, Renée L Admitting Unavailable Garibaldi, Roseline Primary Care Unavailable YaminikyYordy Attending Unavailable Chance, Edu Consulting Unavailable Adeli, Amir Consulting Unavailable Hinduja, Mel Consulting Unavailable Byron, Ele Consulting Unavailable Zha, Jenelle Consulting Unavailable Luis, Ian Consulting Unavailable Lolita, Jaylin Consulting Unavailable Bittar, Delvis Consulting Unavailable Vázquez, Julia Consulting Unavailable Brito, Joshua Consulting Unavailable Beigel, Lelo Consulting Unavailable Gusler, Monty Consulting Unavailable Buster, Yanique Consulting Unavailable Ridha, Mohamed Consulting Unavailable Zaghlouleh, Mhd Trace Consulting UnavailJose Burger Consulting Unavailable Escobar, Rami Consulting Unavailable Diogo, Trino Consulting Unavailable Ezekiel, Lauren Consulting Unavailable Hannawi, Yousef Consulting Unavailable White, Renée L Consulting Unavailable Lynn, Jayaprakas Referring Unavailable Yuval, Roseline Primary Care Unavailable Lynn, Jayaprakas Attending Unavailable Garibaldi, Roseline Primary Care Unavailable Agustin, Enrrique Referring Unavailable Agustin, Enrrique Attending Unavailable Jeanette Mc Referring Unavail able Jeanette Mc Attending Unavail able Yuval, Roseline Primary Care Unavailable Yuval, Roseline Referring Unavailable Yuval, Roseline Primary Care Unavailable Yuval, Roseline Attending Unavailable Yuval, Roseline Primary Care Unavailable Jada Rodriguez Attending Unavailable Yuval, Roseline Referring Unavailable Bauer SHEEP CLIPPER, Jessika Attending Unavailable Bauer SHEEP CLIPPER, Jessika Referring Unavailable Yuval, Roseline Primary Care Unavailable Yuval, Roseline Attending Unavailable Yuval, Roseline Primary Care Unavailable Karl, Trevor Attending Unavailable Yuval, Roseline Primary Care Unavailable Karl, Trevor Attending Unavailable Yuval, Roseline Primary Care Unavailable Garibaldi, Roseline Primary Care Unavailable Yuval, Roseline Attending Unavailable Garibaldi, Roseline Primary Care Unavailable Garibaldi, Roseline Attending Unavailable Yuval, Roseline Referring Unavailable Yuval, Roseline Attending Unavailable Garibaldi, Roseline Primary Care Unavailable Enrrique Velez Attending Unavailable Agustin, Enrrique Referring Unavailable Yuval, Roseline Primary Care Unavailable Bauer SHEEP CLIPPER, Jessika Attending Unavailable Yuval, Roseline Primary Care Unavailable Bauer SHEEP CLIPPER, Jessika Referring Unavailable Ferullo, Genesis Referring Unavailable Ferullo, Genesis Attending Unavailable Garibaldi, Roseline Primary Care Unavailable Garibaldi, Roseline Primary Care Unavailable Lynn, Jayaprakas Referring Unavailable Lynn, Jayaprakas Attending Unavailable Roof SHEEP CLIPPER, Kong H Consulting Unavailable Karl, Schoolcraft Attending Unavailable Garibaldi, Roseline Primary Care Unavailable Roof SHEEP CLIPPER, Kong H Referring Unavailable Roof SHEEP CLIPPER, Knog H Attending Unavailable Garibaldi, Roseline Primary Care Unavailable Yuval, Roseline Primary Care Unavailable Yuval, Roseline Attending Unavailable Garibaldi, Roseline Primary Care Unavailable Garibaldi, Roseline Attending Unavailable Garibaldi, Roseline Primary Care Unavailable Yuval, Roseline Attending Unavailable Garibaldi, Roseline Primary Care Unavailable Karl, Trevor Attending Unavailable Yuval, Roseline Primary Care Unavailable Karl, Trevor Attending Unavailable Karl, Trevor Attending Unavailable Garibaldi, Roseline Primary Care Unavailable Yuval, Roseline Primary Care Unavailable Karl, Schoolcraft Attending Unavailable Yuval, Roseline Primary Care Unavailable Karl, Trevor Attending Unavailable Garibaldi, Roseline Referring Unavailable Garibaldi, Roseline Primary Care Unavailable Karl, Schoolcraft Attending Unavailable Yuval, Roseline Primary Care Unavailable Karl, Schoolcraft Attending Unavailable Garibaldi, Roseline Primary Care Unavailable Karl, Trevor Attending Unavailable Yuval, Roseline Primary Care Unavailable Karl, Trevor Attending Unavailable Garibaldi, Roseline Primary Care Unavailable Karl, Schoolcraft Attending Unavailable Yordy Allen Referring Unavailable Genesis Lee Attending Unavailable Garibaldi, Roseline Primary Care Unavailable Garibaldi, Roseline Primary Care Unavailable Karl, Schoolcraft Attending Unavailable Garibaldi, Roseline Attending Unavailable Garibaldi, Roseline Primary Care Unavailable Lizette SHEEP CLIPPER, Jessika Attending Unavailable Lizette SHEEP CLIPPER, Jessika Referring Unavailable Garibaldi, Roseline Primary Care Unavailable Yuval, Roseline Attending Unavailable Garibaldi, Roseline Primary Care Unavailable Yuval, Roseline Attending Unavailable Yuval, Roseline Primary Care Unavailable Yuval, Roseline Primary Care Unavailable Garibaldi, Roseline Attending Unavailable Yuval, Roseline Referring Unavailable Yuval, Rosleine Primary Care Unavailable Lizette SHEEP CLIPPER, Jessika Attending Unavailable Garibaldi, Roseline Primary Care Unavailable Karl, Trevor Attending Unavailable Joseph Lorenzana Attending Provider Joseph Lorenzana Referring Provider Medications Current Medications Medication Drug Class(es) Dates Sig (Normalized) Sig (Original) albuterol 0.83 mg/ml inhalation solution (20 sources) beta2-Adrenergic Agonist Start: 02-08-2025 take 2.5 mg by inhalation every four hours as needed for wheezing Albuterol Sulfate 2.5 mg /3 mL (0.083 %) solution for nebulization Active 2.5 mg INHALATION Q4H as needed for Sob &/Or Wheezing 180 February 08, 2025 12:00am Start: 02-15-2023 End: 01-09-2025 Albuterol Sulfate 90 mcg/act uation HFA aerosol inhaler Discontinued 2 NMA INHALATION Q4H as needed for shortness of breath or wheezing 8.5 January 07, 2024 12:32pm January 09, 2025 9:54am Start: 02-15-2023 End: 01-07-2024 take 1 puff(s) by inhalation every four hours Albuterol Sulfate Active 2 PUFF INHALATION Q4H 8.January 07, 2024 12:32pm Start: 10-07-2022 End: 12-03-2022 Albuterol Sulfate 90 mcg/act uation HFA aerosol inhaler Discontinued 2 NMA INHALATION EVERY 6 HOURS as needed for shortness of breath or wheezing 8.October 07, 2022 1:00am December 03, 2022 9:46am Start: 10-07-2022 End: 12-03-2022 take 1 puff(s) by inhalation every six hours Albuterol Sulfate Discontinued 2 PUFF INHALATION EVERY 6 HOURS 8.October 07, 2022 1:00am December 03, 2022 9:46am Budesonide-Formoterol (20 sources) Corticosteroid, beta2-Adrenergic Agonist Start: 01-09-2025 Budesonide-Formoterol (Symbicort) 160-4.5 mcg/actuation HFA aerosol inhaler Active 2 NMA INHALATION TWICE A DAY 1 January 09, 2025 12:00am administer with spacer, rinse mouth after each use Start: 02-02-2024 End: 05-23-2024 Budesonide-Formoterol (Symbi renetta) 160-4.5 mcg/actuation HFA aerosol inhaler Discontinued 2 NMA INHALATION TWICE A DAY 1 February 02, 2024 10:37am May 23, 2024 12:39pm administer with spacer, rinse mouth after each use Start: 02-15-2023 End: 02-02-2024 Budesonide-Formoterol (Symbi renetta) 160-4.5 mcg/actuation HFA aerosol inhaler Discontinued 2 NMA INHALATION TWICE A DAY 1 February 15, 2023 1:47pm February 02, 2024 10:37am administer with spacer, rinse mouth after each use Start: 02-15-2023 take 1 puff(s) by mo [facility] twice daily Budesonide-Formoterol (Symbicort) 160-4. 5 mcg/actuation HFA aerosol inhaler Active 2 PUFF INHALATION TWICE A DAY 1 February 15, 2023 12:47pm administer with spacer, rinse mouth after each use Start: 02-15-2023 take 1 puff(s) by mo [facility] twice daily Budesonide-Formoterol (Symbicort) 160-4. 5 mcg/actuation HFA aerosol inhaler Active 2 PUFF INHALATION TWICE A DAY February 15, 2023 1:47pm administer with spacer, rinse mouth after each use Start: 11-26-2022 End: 02-15-2023 Budesonide-Formoterol (Symbi renetta) 160-4.5 mcg/actuation HFA aerosol inhaler Discontinued 2 NMA INHALATION TWICE A DAY November 26, 2022 12:00am February 15, 2023 1:48pm administer with spacer, rinse mouth after each use Start: 11-26-2022 End: 02-15-2023 take 1 puff(s) by mouth twice daily Budesonide-Formoterol (Symbicort) 160-4. 5 mcg/actuation HFA aerosol inhaler Discontinued 2 PUFF INHALATION TWICE A DAY November 25, 2022 11:00pm February 15, 2023 12:48pm administer with spacer, rinse mouth after each use Start: 11-26-2022 End: 02-15-2023 take 1 puff(s) by mouth twice daily Budesonide-Formoterol (Symbicort) 160-4. 5 mcg/actuation HFA aerosol inhaler Discontinued 2 PUFF INHALATION TWICE A DAY November 26, 2022 12:00am February 15, 2023 1:48pm administer with spacer, rinse mouth after each use Zobkuqi-Vqe-Uvv K3-G3-Pujrfbnj (CALCIUM CITRATE + D WITH MAG) 837-82-5-125 qr-yz-xz-unit tab (20 sources) Start: 05-01-2015 End: 06-08-2022 take 1 tablet by mouth once daily Ieknizp-Fyo-Hkz N8-A8-Ltiqnhkk (CALCIUM CITRATE + D WITH MAG) 130-26-2-125 nr-jh-po-unit tab Take 1 tablet by mouth once daily. 0 05/01/2015 06/08/2022 Discontinued (Course of therapy completed) Start: 05-01-2015 take 1 tablet by fam once daily Qdmznfm-Ijk-Eox Y0-U8-Clhvebjy (CALCIUM CITRATE + D WITH MAG) 660-57-9-125 bl-dw-ti-unit tab Take 1 tablet by mouth once daily. 0 05/01/2015 Active Comment on above: Take 1 tablet by fam th once daily. cholecalciferol 0.125 mg oral tablet (20 sources) Vitamin D Start: End: 2 take 1 tablet by mouth once daily Cholecalciferol, Vitamin D3, 5,000 unit tab Take 1 tablet by mouth once daily. 0 05/01/2015 06/08/2022 Discontinued (Course of therapy completed) Comment on above: Take 1 tablet by fam th once daily. 24 hr metoprolol succinate 50 mg extended release oral tablet (20 sources) beta-Adrenergic Soheila Start: 5 take 1 tablet by mouth once daily Metoprolol Succinate 50 mg tablet extended release 24 hr Active 50 mg PO daily March 06, 2025 12:16pm Start: 02-09-2025 End: 03-06-2025 take 1 tablet by mouth once daily Metoprolol Succinate 25 mg tablet extended release 24 hr Discontinued 25 mg PO daily February 09, 2025 3:49pm March 06, 2025 12:17pm Start: 05-22-2024 End: 02-09-2025 take 1 tablet by mouth once daily Metoprolol Succinate (Toprol Xl) 50 mg tablet extended release 24 hr Discontinued 50 mg PO daily May 22, 2024 4:17pm February 09, 2025 3:49pm Start: 05-17-2024 End: 05-22-2024 take 1 tablet by mouth twice daily Metoprolol Succinate (Toprol Xl) 50 mg tablet extended release 24 hr Discontinued 50 mg PO TWICE A DAY May 17, 2024 2:14pm May 22, 2024 4:17pm Start: 02-11-2022 End: 05-17-2024 take 1 tablet by mouth once daily Metoprolol Succinate (Toprol Xl) 50 mg tablet extended release 24 hr Discontinued 50 mg PO DAILY February 14, 2024 8:22am May 17, 2024 2:14pm Start: 01-19-2022 End: 02-18-2022 take 1 tablet by mouth once daily metoprolol succinate ER (TOPROL XL) 100 mg Take 1 tablet by mouth once daily. 30 tablet 0 01/19/2022 Active Start: 12-11-2021 End: 01-10-2022 take 1 tablet by mouth once daily metoprolol succinate ER (TOPROL XL) 100 mg Take 1 tablet by mouth once daily. 30 tablet 0 12/11/2021 Active Start: 10-07-2021 End: 01-05-2022 take 0.5 tablet by mouth twice daily metoprolol tartrate, short acting, (LOPRESSOR) 25 mg tablet Take 0.5 tablets by mouth twice daily. 90 tablet 0 10/07/2021 12/11/2021 Discontinued (Course of therapy completed) Comment on above: Take 0.5 tablets by mouth twice daily. Take 1 tablet by fam th once daily. Take 50 mg by mouth once daily. mexiletine hydrochloride 150 mg oral capsule (20 sources) Antiarrhythmic Start: 05-14-20 End: 06-08-20 take 1 capsule by mouth twice daily mexiletine (MEXITIL) 150 mg capsule Take 1 capsule by mouth twice daily. 0 05/14/2022 06/08/2022 Discontinued (Side Effects) Start: 12-23-2021 End: 01-22-2022 take 1 capsule by mouth three times daily mexiletine (MEXITIL) 150 mg capsule Take 1 capsule by mouth three times daily. 90 capsule 3 12/23/2021 Active Comment on above: Take [address] [facility] three times daily. Take [address] [facility] twice daily. pantoprazole 40 mg delayed release oral tablet (20 sources) Proton Pump Inhibitor Start: take 1 tablet by mouth once daily Pantoprazole 40 mg tablet,delayed release (DR/EC) Active 40 mg PO daily March 06, 2025 12:00am Start: 01-19-2022 End: 01-25-2025 take 1 tablet by mouth once daily Pantoprazole (Protonix) 40 mg tablet,delayed release (DR/EC) Discontinued 40 mg PO DAILY July 03, 2024 4:13pm January 25, 2025 12:08pm Start: 10-07-2021 End: 01-05-2022 take 1 tablet by mouth once daily pantoprazole DR (PROTONIX) 40 mg tablet Take 1 tablet by mouth once daily. 30 tablet 2 10/07/2021 Active Comment on above: Take 1 tablet by fam th once daily. perflutren lipid microspheres 1.3 mL in NaCl (PF) 0.9% 10 mL injection (DEFINITY) (20 sources) Start: 12-03-2021 End: 03-04-2023 perflutren lipid microspheres 1.3 mL in NaCl (PF) 0.9% 10 mL injection (DEFINITY) Start: 12-03-2021 End: 03-04-2023 perflutren lipid microsphere s 1.3 mL in NaCl (PF) 0.9% 10 mL injection (DEFINITY) Start: 03-21-2021 End: 06-20-2022 perflutren lipid microsphere s 1.3 mL in NaCl (PF) 0.9% 10 mL injection (DEFINITY) 125 ml sodium chloride 9 mg/ ml prefilled syringe (20 sources) Start: 03-21-2021 End: 03-04-2023 sodium chloride 0.9 % (flush ) 10 mL (BD POSIFLUSH) spacer (20 sources) Start: 11-26-2022 spacer Active 0 .ROUTE .MEDSUPPLY November 25, 2022 11:00pm As directed Start: 11-26-2022 spacer Active 0 .ROUTE .MEDSUPPLY November 26, 2022 12:00am As directed torsemide 20 mg oral tablet (20 sources) Loop Diuretic Start: 01-26-2025 take 1 tablet by mouth once daily Torsemide 20 mg tablet Active 20 mg PO DAILY 180 January 26, 2025 12:43pm Start: 12-11-2024 End: 01-26-2025 take 1 tablet by mouth twice daily Torsemide 20 mg tablet Discontinued 20 mg PO TWICE A DAY December 11, 2024 3:37pm January 26, 2025 12:43pm Start: 11-23-2024 End: 12-11-2024 take 1 tablet by mouth once daily Torsemide 20 mg tablet Discontinued 20 mg PO .COMPLEX 180 November 23, 2024 3:30pm December 11, 2024 3:37pm 20 mg orally daily: Start: 09-15-2024 End: 11-23-2024 take 1 tablet by mouth twice daily Torsemide 20 mg tablet Discontinued 20 mg PO .COMPLEX 180 September 15, 2024 11:43am November 23, 2024 3:31pm 20 mg orally twice daily: dose increased on 09/14/24 for increased HF index on cardiac device; Start: 11-25-2023 End: 09-15-2024 take 1 tablet by mouth once daily Torsemide 20 mg tablet Discontinued 20 mg PO DAILY 90 April 19, 2024 4:06pm September 15, 2024 11:44am Start: 11-09-2023 End: 11-25-2023 take 1 tablet by mouth every four hours Torsemide 20 mg tablet Discontinued 20 mg PO .COMPLEX 270 November 09, 2023 11:45am November 25, 2023 4:17pm 20 mg orally 2 tablets (40 mg ) in am and 1 tablet (20 mg) in the afternoon about 4 hours later; Start: 11-01-2023 End: 11-09-2023 take 40 mg by mouth in the morning Torsemide Discontinued 40 MG PO .COMPLEX 180 November 01, 2023 4:49pm November 09, 2023 11:47am 40 mg orally in AM Start: 09-16-2023 End: 11-09-2023 take 2 tablets by mouth in the morning Torsemide 20 mg tablet Discontinued 40 mg PO .COMPLEX 180 November 01, 2023 4:49pm November 09, 2023 11:47am 40 mg orally in AM Start: 09-16-2023 End: 11-01-2023 take 40 mg by mouth in the morning, then take 20 mg by mouth in the evening Torsemide Discontinued 20 MG PO .COMPLEX September 16, 2023 5:59pm November 01, 2023 4:32pm 40mg in AM and 20mg in PM Start: 08-25-2023 End: 09-16-2023 Torsemide 20 mg tablet Disco ntinued 20 mg PO .COMPLEX August 25, 2023 11:41am September 16, 2023 6:00pm 20 mg orally BID, Hold for SBP less than 90 mmHg or feeling dizzy lightheaded Start: 12-03-2022 End: 08-25-2023 take 1 tablet by mouth once daily in the evening Torsemide 20 mg tablet Discontinued 20 mg PO .COMPLEX December 03, 2022 9:47am August 25, 2023 11:41am 20 mg orally daily, takes PM dose if needed; Hold for SBP less than 90 mmHg or feeling dizzy lightheaded Start: 10-06-2022 End: 12-03-2022 Torsemide 20 mg tablet Disco ntinued 20 mg PO TWICE A DAY 180 October 07, 2022 3:16pm December 03, 2022 9:49am Hold for SBP less than 90 mmHg or feeling dizzy lightheaded Start: 09-22-2022 take 1 tablet by fam th three times daily torsemide (DEMADEX) 20 mg tablet Take 1 tablet by mouth three times daily. 0 09/22/2022 Active Start: 09-22-2022 End: 10-06-2022 Torsemide 20 mg tablet Disco ntinued 20 mg PO THREE TIMES A DAY 90 September 22, 2022 1:00am October 06, 2022 4:29pm Hold for SBP less than 90 mmHg or feeling dizzy lightheaded Comment on above: Take 1 tablet by fam three times daily. Completed/Discontinued Medications Medication Drug Class(es) Dates Sig (Normalized) Sig (Original) amiodarone hydrochloride 200 mg oral tablet (2 sources) Antiarrhythmic Start: 11-28-2021 End: 12-11-2021 take 1 tablet by mouth once daily amiodarone (PACERONE) 200 mg tablet Take 1 tablet by mouth once daily 180 tablet 3 11/28/2021 12/11/2021 Discontinued (Side Effects) Comment on above: Take 1 tablet by fam once daily aspirin 81 mg chewable tablet (20 sources) Platelet Aggregation Inhibitor, Nonsteroidal Anti-inflammatory Drug Start: 07-08-2022 End: 03-06-2025 take 1 tablet by mouth once daily Aspirin (Rahul Chewable Aspirin) 81 mg tablet,chewable Discontinued 81 mg PO DAILY July 08, 2022 12:00am March 06, 2025 11:41am Comment on above: Take 81 mg by mouth once daily. dapagliflozin 10 mg oral tablet (20 sources) Sodium-Glucose Cotransporter 2 Inhibitor Start: 08-25-2023 End: 02-14-2025 take 1 tablet by mouth once daily Dapagliflozin Propanediol (Farxiga) 10 mg tablet Discontinued 10 mg PO DAILY January 22, 2025 12:30pm February 14, 2025 12:24pm Enoxaparin 40 mg/0.4 mL syringe (7 sources) Start: 02-27-2025 End: 03-06-2025 Enoxaparin 40 mg/0.4 mL syringe Discontinued 40 mg SC Q12H 4 February 27, 2025 12:00am March 06, 2025 11:41am Start: 02-27-2025 Enoxaparin 40 mg/0.4 mL syringe Active 40 mg SC Q12H 4 February 27, 2025 12:00am erythromycin 0.005 mg/mg ophthalmic ointment (20 sources) Macrolide, Macrolide Antimicrobial Start: 08-24-2023 End: 10-29-2023 Erythromycin 5 mg/gram (0.5 %) ointment Discontinued OPHTHALMIC August 24, 2023 1:00am October 29, 2023 10:00am Start: 08-24-2023 End: 10-29-2023 Erythromycin Discontinued OP HTHALMIC August 24, 2023 1:00am October 29, 2023 10:00am furosemide 40 mg oral tablet (20 sources) Loop Diuretic Start: 07-08-2022 End: 09-22-2022 take 1 tablet by mouth twice daily Furosemide (Lasix) 40 mg tablet Discontinued 40 mg PO TWICE A DAY July 08, 2022 12:00am September 22, 2022 3:10pm Start: 05-14-2022 End: 10-09-2022 take 0.5 tablet by mouth twice daily furosemide (LASIX) 40 mg tablet Indications: Hypertrophic cardiomyopathy (HCC) Take 0.5 tablets by mouth twice daily. 180 tablet 3 05/14/2022 10/09/2022 Discontinued (Not Continued After Discharge) Start: 10-09-2021 take 1 tablet by fam th twice daily furosemide (LASIX) 40 mg tablet Indications: Hypertrophic cardiomyopathy (HCC) Take 1 tablet by mouth twice daily. 180 tablet 3 10/09/2021 Active Comment on above: Take 1 tablet by fam th twice daily. Take 0.5 tablets by mouth twice daily. ketorolac tromethamine 5 mg/ml ophthalmic solution (20 sources) Nonsteroidal Anti-inflammatory Drug, Cyclooxygenase Inhibitor Start: 08-24-2023 End: 10-29-2023 Ketorolac 0.5 % drops Discontinued NMA OPHTHALMIC August 24, 2023 1:00am October 29, 2023 10:00am Start: 08-24-2023 End: 10-29-2023 Ketorolac Discontinued DRP O PHTHALMIC August 24, 2023 1:00am October 29, 2023 10:00am methIMAzole 5 mg oral tablet (20 sources) Thyroid Hormone Synthesis Inhibitor Start: 07-08-2022 End: 02-24-2024 take 2.5 mg by mouth every other day Methimazole 5 mg tablet Discontinued 2.5 mg PO .COMPLEX July 08, 2022 12:00am February 24, 2024 8:17am 2.5 mg orally every other day; Start: 07-08-2022 take 2.5 mg by mouth every other day Methimazole Active 2.5 MG PO .COMPLEX July 08, 2022 12:00am 2.5 mg orally every other day; Start: 06-08-2022 End: 01-12-2023 take 0.5 tablet by mouth every other day methIMAzole (TAPAZOLE) 5 mg tablet Take 0.5 tablets by mouth every other day. 23 tablet 3 10/14/2022 Active Start: 11-18-2021 take 1 tablet by fam th once daily methIMAzole (TAPAZOLE) 5 mg tablet Take 1 tablet by mouth once daily. 90 tablet 1 11/18/2021 Active Comment on above: Take 1 tablet by fam th once daily. Take 0.5 tablets by mouth every other day. montelukast 10 mg oral tablet (9 sources) Leukotriene Receptor Antagonist Start: 5 End: 5 take 1 tablet by mouth once daily in the evening Montelukast 10 mg tablet Discontinued 10 mg PO EVERY EVENING February 08, 2025 12:00am March 06, 2025 11:42am Multivitamin preparation (18 sources) Start: End: take 1 tablet by mouth once daily Multivitamin Discontinued 1 TABLET PO DAILY July 07, 2022 11:00pm April 14, 2023 10:12am Start: 07-08-2022 End: 04-14-2023 take 1 tablet by mouth once daily Multivitamin Discontinued 1 TABLET PO DAILY July 08, 2022 12:00am April 14, 2023 11:12am Start: 07-08-2022 take 1 tablet by fam th once daily Multivitamin Active 1 TABLET PO DAILY July 07, 2022 11:00pm multivitamin tablet (20 sources) Start: 05-01-2015 take 1 tablet by mouth once daily multivitamin tablet Take 1 tablet by mouth once daily. 0 05/01/2015 Active Comment on above: Take 1 tablet by fam once daily. Multivitamin tablet (13 sources) Start: 07-08-2022 End: 04-14-2023 Multivitamin tablet Discontinued 1 {tbl} PO DAILY July 08, 2022 12:00am April 14, 2023 11:12am potassium chloride 10 meq extended release oral tablet (20 sources) Start: 12-03-2022 End: 12-07-2023 take 1 tablet by mouth once daily Potassium Chloride 10 mEq tablet extended release Discontinued 10 meq PO DAILY December 03, 2022 12:00am October 29, 2023 10:01am Start: 07-08-2022 End: 09-22-2022 take 1 tablet by mouth once daily Potassium Chloride 10 mEq tablet,ER particles/crystals Discontinued 10 meq PO DAILY July 08, 2022 12:00am September 22, 2022 3:13pm Start: 10-09-2021 End: 10-09-2022 take 1 tablet by mouth once daily at breakfast potassium chloride (K-TAB) 10 mEq tablet Take 1 tablet by mouth daily with breakfast. 90 tablet 3 10/09/2021 10/09/2022 Active Comment on above: Take 1 tablet by fam daily with breakfast. prednisoLONE acetate 10 mg/ml ophthalmic suspension (20 sources) Corticosteroid Start: 08-24-2023 End: 10-29-2023 Prednisolone Acetate 1 % drops,suspension Discontinued NMA OPHTHALMIC August 24, 2023 1:00am October 29, 2023 10:01am Start: 08-24-2023 End: 10-29-2023 Prednisolone Acetate Discont inued DRP OPHTHALMIC August 24, 2023 1:00am October 29, 2023 10:01am predniSONE 10 mg oral tablet (20 sources) Start: 02-07-2025 End: 02-19-2025 Prednisone 10 mg tablet Discontinued 10 mg PO daily 11 09February 07, 2025 12:00am February 18, 2025 12:00am February 19, 2025 12:07am take 4 tabs for three days, then 3 tabs for three days, then 2 tabs for three days, then 1 tab for 3 days Start: 01-09-2025 End: 01-14-2025 take 3 tablets by mouth once daily at mealtime Prednisone 20 mg tablet Discontinued 60 mg PO daily 15 January 09, 2025 12:00am January 13, 2025 12:00am January 14, 2025 12:09am administer with food or milk spironolactone 25 mg oral tablet (20 sources) Aldosterone Antagonist Start: 09-22-2022 take 1 tablet by mouth twice daily spironolactone (ALDACTONE) 25 mg tablet Take 1 tablet by mouth twice daily. 0 09/22/2022 Active Start: 09-22-2022 End: 12-12-2024 Spironolactone 25 mg tablet Discontinued 25 mg PO DAILY January 19, 2024 10:20am December 12, 2024 9:54am Hold for serum potassium more than 5.0 Comment on above: Take 1 tablet by fam th twice daily. traMADol hydrochloride 50 mg oral tablet (20 sources) Opioid Agonist Start: 2 End: 3 take 1 tablet by mouth every six hours as needed for pain Tramadol 50 mg tablet Discontinued 50 mg PO EVERY 6 HOURS as needed for pain 10 August 17, 2022 1:00am October 06, 2022 4:07pm warfarin sodium 5 mg oral tablet (20 sources) Vitamin K Antagonist Start: 3 End: 3 warfarin (COUMADIN) 1 mg tablet 7.5 mg , Wednesday, 5 mg daily or as directed 60 tablet 03/22/2023 Active Start: 02-22-2023 End: 03-22-2023 warfarin (COUMADIN) 5 mg tab let Indications: Paroxysmal atrial fibrillation (HCC) , AICD (automatic cardioverter/defibrillator) present 7.5 mg , Wednesday, 5 mg daily or as directed 60 tablet 03/22/2023 Active Start: 12-03-2022 Warfarin 1 mg tablet Active 1 mg PO .COMPLEX December 03, 2022 12:00am 1 mg orally as directed for dose changes; Managed by PCP Please contact the information source for Protocol details. Start: 11-17-2022 End: 02-16-2023 warfarin (COUMADIN) 5 mg tab let Indications: Paroxysmal atrial fibrillation (HCC) , AICD (automatic cardioverter/defibrillator) present 7.5 mg M/W/F, 5 mg all other days or as directed 60 tablet 11 11/17/2022 02/16/2023 Discontinued Start: 11-17-2022 warfarin (COUM YU) 1 mg tablet 7.5 mg M/W/F, 5 mg all other days or as directed 60 tablet 11 11/17/2022 Active Start: 10-13-2022 End: 11-17-2022 warfarin (COUMADIN) 1 mg tab let Take 2.5 mg daily or as directed 60 tablet 11 10/13/2022 11/17/2022 Discontinued Start: 10-13-2022 End: 11-17-2022 warfarin (COUMADIN) 5 mg tab let Indications: Paroxysmal atrial fibrillation (HCC) , AICD (automatic cardioverter/defibrillator) present Take 2.5 mg daily or as directed 60 tablet 11 10/13/2022 11/17/2022 Discontinued Start: 09-09-2022 End: 10-13-2022 warfarin (COUMADIN) 1 mg tab let Take 5-10 mg daily as directed 60 tablet 11 09/09/2022 10/13/2022 Discontinued Start: 09-09-2022 End: 10-13-2022 warfarin (COUMADIN) 5 mg tab let Indications: Paroxysmal atrial fibrillation (HCC) , AICD (automatic cardioverter/defibrillator) present Take 5-10 mg daily as directed 60 tablet 11 09/09/2022 10/13/2022 Discontinued Start: 09-08-2022 End: 09-09-2022 warfarin (COUMADIN) 1 mg tab let 6 mg Wed/Sat, 2.5 mg all other days or as directed 30 tablet 1 09/08/2022 09/09/2022 Discontinued Start: 09-08-2022 End: 09-09-2022 warfarin (COUMADIN) 5 mg tab let Indications: Paroxysmal atrial fibrillation (HCC) , AICD (automatic cardioverter/defibrillator) present 6 mg Wed/Sat, 2.5 mg all other days or as directed 50 tablet 3 09/08/2022 09/09/2022 Discontinued Start: 06-22-2022 End: 09-08-2022 warfarin (COUMADIN) 1 mg tab let Take with 5 mg tablet as directed by physician. 30 tablet 1 06/22/2022 09/08/2022 Discontinued Start: 06-01-2022 End: 01-04-2025 take 1 tablet by mouth once daily Warfarin 5 mg tablet Discontinued 5 mg P O DAILY 90 March 10, 2024 3:54pm January 04, 2025 11:34am Please contact the information source for Protocol details. Start: 01-07-2022 End: 06-01-2022 warfarin (COUMADIN) 5 mg tab let Indications: AICD (automatic cardioverter/defibrillator) present , Paroxysmal atrial fibrillation (HCC) 2.5 mg M/W/Sat, NONE all other days or as directed 50 tablet 3 03/30/2022 06/01/2022 Discontinued Start: 12-22-2021 End: 01-07-2022 warfarin (COUMADIN) 5 mg tab let 5 mg Wed/Wed/Wed, none all other days or as directed 50 tablet 0 12/23/2021 01/07/2022 Discontinued Start: 10-27-2021 End: 12-22-2021 warfarin (COUMADIN) 5 mg tab let 2.5 mg daily except NONE on Mon,Wed, Wed or as directed 0 10/27/2021 12/22/2021 Discontinued Comment on above: 2.5 mg daily except NONE on Mon,Wed, Fri or as directed 5 mg Wed/Wed/Wed, no ne all other days or as directed 2.5 mg M/W/F/Sat, NO NE all other days or as directed 2.5 mg M/W/Sat, NONE all other days or as directed 5 mg Wed/Wed, 2.5 mg all other days or as directed Take with 5 mg table t as directed by physician. 6 mg Wed/Wed, 2.5 mg all other days or as directed Take 5-10 mg daily a s directed Take 2.5 mg daily or as directed 7.5 mg M/W/F, 5 mg a ll other days or as directed 5 mg daily 7.5 mg Mon, Wed, Wed day, 5 mg daily or as directed 7.5 mg , Wednesday, 5 mg daily or as directed Problems Active Problems Problem Classification Problem Date Documented Date Episodic/Chronic Acute myocardial infarction (20 sources) Myocardial infarction; Translations: [Non-ST elevation (NSTEMI) myocardial infarction] Chronic Administrative/social admission (18 sources) Persons encountering health services in other specified circumstances; Translations: [Other reasons for seeking consultation] 02-15-2023 Episodic Asthma (20 sources) Asthma; Translations: [Unspecified asthma, uncomplicated] Onset: 5 02-15-2023 Chronic Blindness and vision defects (3 sources) Other visual disturbances; Translations: [Other specified visual disturbances] 05-20-2023 Episodic Cardiac arrest and ventricular fibrillation (1 source) Ventricular fibrillation Onset: 8 Chronic Cardiac dysrhythmias (20 sources) Unspecified atrial fibrillation; Translations: [Persistent atrial fibrillation] Onset: 5 10-01-2021 Chronic Cardiac dysrhythmias (6 sources) Cardiac dysrhythmias Onset: 8 Chronic kidney disease (20 sources) Chronic kidney disease stage 3B ; Translations: [Stage 3b chronic kidney disease] Onset: 1 10-01-2021 Chronic Chronic kidney disease (1 source) Chronic kidney disease; Translations: [Chronic kidney disease, stage 3b] Onset: 4 Coagulation and hemorrhagic disorders (20 sources) Blood coagulation disorder; 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] Chronic Conduction disorders (20 sources) Presence of automatic (implantable) cardiac defibrillator; Translations: [Automatic implantable cardiac defibrillator in situ] Onset: 5 09-17-2021 Chronic Congestive heart failure; nonhypertensive (20 sources) Chronic systolic heart failure; Translations: [Chronic systolic (congestive) heart failure] Onset: 2 Chronic Congestive heart failure; nonhypertensive (1 source) Congestive heart failure; nonhypertensive Onset: 8 Deficiency and other anemia (1 source) Deficiency and other anemia Onset: 8 E Codes: Transport; not MVT (20 sources) Animal-rider injured by fall from or being thrown from horse in noncollision accident, initial encounter; Translations: [Fall from horse] 08-25-2022 Episodic Esophageal disorders (20 sources) Gastroesophageal reflux disease without esophagitis; Translations: [Gastro-esophageal reflux disease without esophagitis] Onset: 5 09-17-2021 Chronic Esophageal disorders (1 source) Esophageal disorders Onset: 8 Essential hypertension (20 sources) Essential hypertension; Translations: [Essential (primary) hypertension] Onset: 0 10-01-2021 Chronic Fracture of upper limb (20 sources) Closed fracture of clavicle; Translations: [Fracture of unspecified part of left clavicle, initial encounter for closed fracture] 08-25-2022 Episodic Gastroduodenal ulcer (except hemorrhage) (20 sources) Chronic gastric ulcer; Translations: [Chronic gastric ulcer without hemorrhage or perforation] 10-10-2021 Chronic Heart valve disorders (20 sources) Presence of prosthetic heart valve; Translations: [Rheumatic mitral valve disease, unspecified] Onset: 8 05-11-2022 Chronic Comment on above: LEAVE THIS DX on [facility] GUT[facility]RE[facility] PROBLEMS: Pt cannot stop Warfarin without plan Hypertension with complications and secondary hypertension (1 source) Hypertensive heart disease with heart failure Onset: 8 Chronic Mood disorders (1 source) Mood disorders Onset: 8 Nutritional deficiencies (20 sources) Undernutrition; Translations: [Mild protein-calorie malnutrition] Onset: 2 10-03-2021 Chronic Osteoarthritis (1 source) Unspecified osteoarthritis, unspecified site Onset: 8 Chronic Other aftercare (2 sources) Encounter for therapeutic drug level monitoring; Translations: [Encounter for therapeutic drug level monitoring] Onset: 8 Episodic Other aftercare (12 sources) Patient encounter status; Translations: [Encounter for therapeutic drug level monitoring] Episodic Other aftercare (20 sources) Long-term current use of anticoagulant; Translations: [FPC (current) use of anticoagulants] 05-10-2023 Episodic Other aftercare (13 sources) Long-term current use of diuretic; Translations: [Encounter for therapeutic drug level monitoring] 11-09-2023 Episodic Other diseases of kidney and ureters (15 sources) Renal impairment; Translations: [Disorder of kidney and ureter, unspecified] 11-25-2023 Episodic Other hematologic conditions (7 sources) Raised cardiac enzyme or marker; Translations: [Other specified abnormalities of plasma proteins] 09-30-2022 Episodic Other hematologic conditions (5 sources) Other specified abnormalities of plasma proteins; Translations: [Other abnormal blood chemistry] Episodic Other lower respiratory disease (20 sources) Hypoxia; Translations: [Hypoxemia] Onset: 2 09-17-2021 Episodic Other lower respiratory disease (2 sources) Hypoxemia; Translations: [Hypoxemia] Episodic Other lower respiratory disease (20 sources) Dyspnea; Translations: [Dyspnea, unspecified] 10-07-2022 Episodic Other lower respiratory disease (16 sources) Dyspnea, unspecified; Translations: [Other respiratory abnormalities] 10-07-2022 Episodic Other lower respiratory disease (1 source) Shortness of breath; Translations: [Shortness of breath] Onset: 5 Episodic Other screening for suspected conditions (not mental disorders or infectious disease) (20 sources) Abnormal coagulation profile; Translations: [Abnormal electrocardiogram [ECG] [EKG]] Onset: 2 Episodic Other upper respiratory disease (20 sources) Allergic rhinitis; Translations: [Other allergic rhinitis] Onset: 5 05-01-2015 Chronic Dinorah-; endo-; and myocarditis; cardiomyopathy (except that caused by tuberculosis or sexually transmitted disease) (20 sources) Other hypertrophic cardiomyopathy; Translations: [Hypertrophic obstructive cardiomyopathy] Onset: 5 09-17-2021 Chronic Comment on above: EF 35% Pleurisy; pneumothorax; pulmonary collapse (20 sources) Pleural effusion; Translations: [Pleural effusion, not elsewhere classified] 08-25-2022 Episodic Pulmonary heart disease (20 sources) Pulmonary hypertension; Translations: [Pulmonary hypertension, unspecified] Onset: 0 09-17-2021 Chronic Residual codes; unclassified (20 sources) Central sleep apnea syndrome; Translations: [Primary central sleep apnea] 10-07-2022 Chronic Comment on above: AHI 47 on ASV Residual codes; unclassified (17 sources) Primary central sleep apnea; Translations: [Unspecified sleep apnea] Onset: 5 Chronic Residual codes; unclassified (3 sources) Immunization not carried out because of patient refusal; Translations: [Vaccination not carried out because of patient refusal] 05-20-2023 Episodic Residual codes; unclassified (13 sources) Medication refused; Translations: [Immunization not carried out because of patient refusal] 05-23-2024 Episodic Spondylosis; intervertebral disc disorders; other back problems (20 sources) Degeneration of cervical intervertebral disc; Translations: [Other cervical disc degeneration, unspecified cervical region] Onset: 5 05-01-2015 Chronic Thyroid disorders (20 sources) Hyperthyroidism; Translations: [Thyrotoxicosis, unspecified without thyrotoxic crisis or storm] Onset: 5 Chronic Transient cerebral ischemia (20 sources) Transient cerebral ischemia; Translations: [Transient cerebral ischemic attack, unspecified] Onset: 2 05-11-2022 Chronic Unclassified (1 source) Presence of prosthetic heart valve / Z95.2(ICD-10) Onset: 8 Unclassified (1 source) Nonrheumatic mitral (valve) insufficiency / I34.0(ICD-10) Onset: 8 Unclassified (2 sources) Unspecified atrial flutter / I48.92(ICD-10) Onset: 8 Unclassified (1 source) Unspecified convulsions / R56.9(ICD-10) Onset: 8 Unclassified (1 source) Prsnl hx of TIA (TIA), and cereb infrc w/o resid deficits / Z86.73(ICD-10) Onset: 8 Unclassified (2 sources) Other hypertrophic cardiomyopathy / I42.2(ICD-10) Onset: 8 Unclassified (1 source) vermin exterminator (current) use of anticoagulants / Z79.01(ICD-10) Onset: 8 Unclassified (1 source) vermin exterminator (current) use of aspirin / Z79.82(ICD-10) Onset: 8 Unclassified (2 sources) Thyrotoxicosis, 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 storm / E05.90(ICD-10) Onset: 8 Unclassified (1 source) Procedure and treatment not carried out for other reasons / Z53.8(ICD-10) Onset: 8 Unclassified (1 source) Hypertensive heart disease with heart failure / I11.0(ICD-10) Onset: 8 Unclassified (1 source) Pleural effusion, not elsewhere classified / J90(ICD-10) Onset: 8 Unclassified (1 source) Presence of automatic (implantable) cardiac defibrillator / Z95.810(ICD-10) Onset: 8 Unclassified (1 source) Ventricular tachycardia / I47.2(ICD-10) Onset: 8 Unclassified (1 source) Thyrotoxicosis, 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 storm Onset: 8 Unclassified (1 source) Acute combined systolic and diastolic (congestive) hrt fail Onset: 8 Unclassified (10 sources) As scheduled Past or Other Problems Problem Classification Problem Date Documented Da te Episodic/Chronic Acute and unspecified renal failure (20 sources) Acute injury of kidney; Translations: [Acute kidney failure, unspecified] Onset: 2 10-01-2021 Episodic Acute posthemorrhagic anemia (20 sources) Acute posthemorrhagic anemia; Translations: [Acute posthemorrhagic anemia] Onset: 2 10-01-2021 Episodic Cardiac dysrhythmias (20 sources) Tachycardia; Translations: [Tachycardia, unspecified] Onset: 2 05-11-2022 Episodic Deficiency and other anemia (1 source) Anemia, unspecified; Translations: [Severe anemia] Onset: 2 Episodic Diabetes mellitus without complication (2 sources) Increased glucose level; Translations: [Other abnormal glucose] Onset: 3 Episodic Fluid and electrolyte disorders (1 source) Hypovolemia; Translations: [Hypotension due to hypovolemia] Onset: 2 Episodic Gastrointestinal hemorrhage (20 sources) Gastrointestinal hemorrhage; Translations: [Gastrointestinal hemorrhage, unspecified] Onset: 2 10-01-2021 Episodic Other bone disease and musculoskeletal deformities (20 sources) Senile osteopenia; Translations: [Other specified disorders of bone density and structure, unspecified site] Onset: 1 01-21-2021 Episodic Other circulatory disease (20 sources) History of transient ischemic attack; Translations: [Personal history of transient ischemic attack (TIA), and cerebral infarction without residual deficits] Onset: 0 09-17-2021 Episodic Other circulatory disease (1 source) Other hypotension; Translations: [Hypotension due to hypovolemia] Onset: 2 Episodic Other fractures (20 sources) Compression fracture of vertebral column; Translations: [Collapsed vertebra, not elsewhere classified, site unspecified, initial encounter for fracture] Onset: 5 05-01-2015 Episodic Other gastrointestinal disorders (20 sources) Diarrhea; Translations: [Diarrhea, unspecified] Onset: 0 08-01-2020 Episodic Residual codes; unclassified (1 source) Acquired absence of both cervix and uterus Onset: 8 Episodic Residual codes; unclassified (1 source) Personal history of other specified conditions Onset: 8 Episodic Residual codes; unclassified (20 sources) History of repair of mitral valve; Translations: [Other specified postprocedural states] Onset: 0 10-01-2021 Episodic Residual codes; unclassified (1 source) Other specified postprocedural states; Translations: [S/P MVR (mitral valve repair)] Onset: 2 Episodic Residual codes; unclassified (2 sources) Asymptomatic menopausal state; Translations: [Asymptomatic menopausal state] Onset: 4 Episodic Screening and history of mental health and substance abuse codes (1 source) Personal history of nicotine dependence Onset: 8 Episodic Results Test Name Value Interpretation Reference Range Facility No Panel InformationOrdered By: Trevor Barajas on 03-01-2025 INR International Normalized Ratio 1.9 [facility] No Panel InformationOrdered By: Jeanette Alexis on 02-27-2025 INR International Normalized Ratio 1.6 [facility] No Panel InformationOrdered By: Trevor Barajas on 02-19-2025 INR International Normalized Ratio 1.6 [facility] No Panel InformationOrdered By: Trevor Barajas on 02-12-2025 INR International Normalized Ratio 3.7 [facility] Absolute lymphocyte countOrd ered By: Jeanette Alexis on 02-08-2025 Lymphocytes Auto (Unsp spec) [#/Vol] 0.78 10*3/uL Low 0.83-4.51 [facility] Absolute neutrophil countOrd ered By: Jeanette Alexis on 02-08-2025 Neutrophils (Bld) [#/Vol] 5.6 10*3/uL 2.0-7.7 [facility] Anion gap in Serum or Plasma Ordered By: Jeanette Alexis on 02-08-2025 Anion gap [Moles/Vol] 14 mmol/L 5-15 [facility] Automated lymphocyte count a s percentage of total leukocytesOrdered By: Jeanette Alexis on 02-08-2025 Lymphocytes/100 WBC Auto (Unsp spec) 11.6 % Low 19-41 [facility] BUN/creatinine ratioOrdered By: Jeanette Vanesa on 02-08-2025 Urea nitrogen/Creatinine [Mass ratio] 17.9 mg/mg 10-20 [facility] Basophil percentageOrdered B y: Jeanette Vanesa on 02-08-2025 Basophils/100 WBC (Bld) 0.3 % 0-1 [facility] Bilirubin, totalOrdered By: Jeanette Alexis on 02-08-2025 Bilirubin [Mass/Vol] 1.89 mg/dL High 0.00-1.30 [facility] CBC W/Diff, Automatedon 01-12 Absolute Lymph 0.78 X10 3/uL Low 0.83-4.51 [facility] Comment on above: Performed By: #### L 503.7505, L501.9520, L500.4050, L100.0100 ####[facility] [address] [place], [address] Absolute Neut 5.6 X10 3/uL Normal 2.0-7.7 [facility] Comment on above: Performed By: #### L 503.7505, L501.9520, L500.4050, L100.0100 ####[facility] [address] [place], [address] Basophils/100 WBC (Bld) 0.3 % Normal 0-1 [facility] Comment on above: Performed By: #### L 503.7505, L501.9520, L500.4050, L100.0100 ####[facility] [address] [place], [address] Eosinophils/100 WBC (Bld) 0.3 % Normal 0-5 [facility] Comment on above: Performed By: #### L 503.7505, L501.9520, L500.4050, L100.0100 ####[facility] [address] [place], [address] Erythrocyte distribution width (RBC) [Ratio] 15.8 % High 11.6-14.6 [facility] Comment on above: Performed By: #### L 503.7505, L501.9520, L500.4050, L100.0100 ####[facility] [address] [place], [address] Hematocrit (Bld) [Volume fraction] 41.2 % Normal 37-47 [facility] Comment on above: Performed By: #### L 503.7505, L501.9520, L500.4050, L100.0100 ####[facility] [address] [place], [address] Hemoglobin (Bld) [Mass/Vol] 12.9 g/dL Normal 12.0-15.0 [facility] Comment on above: Performed By: #### L 503.7505, L501.9520, L500.4050, L100.0100 ####[facility] [address] [place], [address] IG% 0.400 Normal 0.0-0.9 [facility] Comment on above: Result Comment: IG% - Immature Granulocytes (promyelocytes, myelocytes andmetamyelocytes) > 1% indicates that a LEFT SHIFT is Present. Performed By: #### L 503.7505, L501.9520, L500.4050, L100.0100 ####[facility] [address] [place], [address] Lymphocytes/100 WBC (Bld) 11.6 % Low 19-41 [facility] Comment on above: Performed By: #### L 503.7505, L501.9520, L500.4050, L100.0100 ####[facility] [address] [place], [address] MCH (RBC) [Entitic mass] 28.6 pg Normal 27.0-32.0 [facility] Comment on above: Performed By: #### L 503.7505, L501.9520, L500.4050, L100.0100 ####[facility] [address] [place], [address] MCHC (RBC) [Mass/Vol] 31.3 g/dL Low 32-36 [facility] Comment on above: Performed By: #### L 503.7505, L501.9520, L500.4050, L100.0100 ####[facility] [address] [place], [address] MCV (RBC) [Entitic vol] 91.4 fL Normal 81-99 [facility] Comment on above: Performed By: #### L 503.7505, L501.9520, L500.4050, L100.0100 ####[facility] [address] [place], [address] Monocytes/100 WBC (Bld) 5.0 % Normal 0-10 [facility] Comment on above: Performed By: #### L 503.7505, L501.9520, L500.4050, L100.0100 ####[facility] [address] [place], [address] Neutrophils/100 WBC (Bld) 82.4 % High 47-70 [facility] Comment on above: Performed By: #### L 503.7505, L501.9520, L500.4050, L100.0100 ####[facility] [address] [place], [address] Nucleated RBC (Bld) [#/Vol] 0 10*3/uL Normal 0-5 [facility] Comment on above: Performed By: #### L 503.7505, L501.9520, L500.4050, L100.0100 ####[facility] [address] [place], [address] Platelet mean volume (Bld) [Entitic vol] 10.0 fL Normal 6.2-12.0 [facility] Comment on above: Performed By: #### L 503.7505, L501.9520, L500.4050, L100.0100 ####[facility] [address] [place], [address] Platelets (Bld) [#/Vol] 209 10*3/uL Normal 150-450 [facility] Comment on above: Performed By: #### L 503.7505, L501.9520, L500.4050, L100.0100 ####[facility] [address] [place], [address] RBC (Bld) [#/Vol] 4.51 10*6/uL Normal 4.2-5.4 [facility] Comment on above: Performed By: #### L 503.7505, L501.9520, L500.4050, L100.0100 ####[facility] [address] [place], [address] RDW SD 52.2 fl High 35.1-43.9 [facility] Comment on above: Performed By: #### L 503.7505, L501.9520, L500.4050, L100.0100 ####[facility] [address] [place], [address] WBC (Bld) [#/Vol] 6.7 10*3/uL Normal 4.4-11.0 [facility] Comment on above: Performed By: #### L 503.7505, L501.9520, L500.4050, L100.0100 ####[facility] [address] [place], [address] Carbon dioxide, total [Moles /volume] in Central venous bloodOrdered By: Jeanette Alexis on 02-08-2025 CO2 [Moles/Vol] 23.2 mmol/L 21.0-32.0 [facility] Chest PA and Lateralon 02-08 Chest PA and Lateral Normal [facility] Chloride assayOrdered By: Martha Alexis on 02-08-2025 Chloride [Moles/Vol] 103 mmol/L 98-108 [facility] Comprehensive Metabolic Prof ilon 02-08-2025 Albumin [Mass/Vol] 4.2 g/dL Normal 3.4-4.8 [facility] Comment on above: Performed By: #### L 503.7505, L501.9520, L500.4050, L100.0100 ####[facility] [address] [place], [address] Albumin/Globulin [Mass ratio] 1.6 {ratio} Normal 0.9-2.4 [facility] Comment on above: Performed By: #### L 503.7505, L501.9520, L500.4050, L100.0100 ####[facility] [address] [place], [address] ALK PHOS 62 U/L Normal 35-104 [facility] Comment on above: Performed By: #### L 503.7505, L501.9520, L500.4050, L100.0100 ####[facility] [address] [place], [address] ALT [Catalytic activity/Vol] 23 U/L Normal <=34 [facility] Comment on above: Performed By: #### L 503.7505, L501.9520, L500.4050, L100.0100 ####[facility] [address] [place], [address] AST [Catalytic activity/Vol] 35 U/L High <=31 [facility] Comment on above: Performed By: #### L 503.7505, L501.9520, L500.4050, L100.0100 ####[facility] [address] [place], [address] Bilirubin [Mass/Vol] 1.89 mg/dL High 0.00-1.30 [facility] Comment on above: Performed By: #### L 503.7505, L501.9520, L500.4050, L100.0100 ####[facility] [address] [place], [address] BUN/CRE 17.9 RATIO Normal 10-20 [facility] Comment on above: Performed By: #### L 503.7505, L501.9520, L500.4050, L100.0100 ####[facility] [address] [place], [address] Calcium [Mass/Vol] 9.5 mg/dL Normal 7.6-11.0 [facility] Comment on above: Performed By: #### L 503.7505, L501.9520, L500.4050, L100.0100 ####[facility] [address] [place], [address] Chloride [Moles/Vol] 103 mmol/L Normal 98-108 [facility] Comment on above: Performed By: #### L 503.7505, L501.9520, L500.4050, L100.0100 ####[facility] [address] [place], [address] CO2 [Moles/Vol] 23.2 mmol/L Normal 21.0-32.0 [facility] Comment on above: Performed By: #### L 503.7505, L501.9520, L500.4050, L100.0100 ####[facility] [address] [place], [address] Creatinine [Mass/Vol] 1.94 mg/dL High 0.70-1.20 [facility] Comment on above: Performed By: #### L 503.7505, L501.9520, L500.4050, L100.0100 ####[facility] [address] [place], [address] GAP 14 Normal 5-15 [facility] Comment on above: Performed By: #### L 503.7505, L501.9520, L500.4050, L100.0100 ####[facility] [address] [place], [address] GFR/1.73 sq M.predicted among non-blacks MDRD (S/P/Bld) [Vol rate/Area] 27 mL/min/{1.73_m2} Low >60 [facility] Comment on above: Result Comment: mL/m in/1.73m2 CKD-EPI Creatinine Equation (2020) Performed By: #### L 503.7505, L501.9520, L500.4050, L100.0100 ####[facility] [address] [place], [address] Globulin (S) [Mass/Vol] 2.6 g/dL Normal 2.2-4.2 [facility] Comment on above: Performed By: #### L 503.7505, L501.9520, L500.4050, L100.0100 ####[facility] [address] [place], [address] Glucose [Mass/Vol] 117 mg/dL High 70-99 [facility] Comment on above: Performed By: #### L 503.7505, L501.9520, L500.4050, L100.0100 ####[facility] [address] [place], [address] Potassium [Moles/Vol] 3.9 mmol/L Normal 3.3-5.1 [facility] Comment on above: Performed By: #### L 503.7505, L501.9520, L500.4050, L100.0100 ####[facility] [address] [place], [address] Sodium [Moles/Vol] 140 mmol/L Normal 133-145 [facility] Comment on above: Performed By: #### L 503.7505, L501.9520, L500.4050, L100.0100 ####[facility] [address] [place], [address] T PROT 6.8 g/dL Normal 5.9-8.4 [facility] Comment on above: Performed By: #### L 503.7505, L501.9520, L500.4050, L100.0100 ####[facility] [address] [place], [address] Urea nitrogen [Mass/Vol] 35 mg/dL High 4-19 [facility] Comment on above: Performed By: #### L 503.7505, L501.9520, L500.4050, L100.0100 ####[facility] [address] [place], [address] Eosinophil percentageOrdered By: Jeanette Alexis on 02-08-2025 Eosinophils/100 WBC (Bld) 0.3 % 0-5 [facility] Erythrocyte distribution wid th ratioOrdered By: Jeanette Alexis on 02-08-2025 Erythrocyte distribution width (RBC) [Ratio] 15.8 % High 11.6-14.6 [facility] Erythrocyte distribution wid th standard deviationOrdered By: Jeanette Alexis on 02-08-2025 Erythrocyte distribution width (RBC) [Ratio] 52.2 fl High 35.1-43.9 [facility] Glomerular filtration rate ( GFR) estimation/1.73 sq m using serum, plasma, or whole bOrdered By: Jeanette Alexis on 02-08-2025 GFR/1.73 sq M.predicted among non-blacks MDRD (S/P/Bld) [Vol rate/Area] 27 mL/min/{1.73_m2} Low >60 [facility] Comment on above: mL/min/1.73m2 CKD-EP I Creatinine Equation (2020) Hematocrit Auto (Bld) [Volum e fraction]Ordered By: Jeanette Alexis on 02-08-2025 Hematocrit (Bld) [Volume fraction] 41.2 % 37-47 [facility] Hemoglobin measurementOrdere d By: Jeanette Alexis on 02-08-2025 Hemoglobin (Bld) [Mass/Vol] 12.9 g/dL 12.0-15.0 [facility] Immature granulocytes/100 WB C Auto (Bld)Ordered By: Jeanette Alexis on 02-08-2025 Immature granulocytes/100 WBC (Bld) 0.400 % 0.0-0.9 [facility] Comment on above: IG% - Immature Granu locytes (promyelocytes, myelocytes and metamyelocytes) > 1% indicates that a LEFT SHIFT is Present. L503.7505on 02-08-2025 Natriuretic peptide B (Bld) [Mass/Vol] 3153 pg/mL High <=900 [facility] Comment on above: Result Comment: Hear t Failure Unlikely: < 300 pg/mLHeart Failure Likely< 50 Years: > 450 pg/mL50-75 Years: > 900 pg/mL>75 Years: > 1800 pg/mL Performed By: #### L 503.7505, L501.9520, L500.4050, L100.0100 ####[facility] [address] [place], [address] Laboratory - Chemistry and C hemistry - challengeOrdered By: Jeanette Alexis on 02-08-2025 AST [Catalytic activity/Vol] 35 U/L High <32 [facility] MCV (mean corpuscular volume ) determinationOrdered By: Jeanette Alexis on 02-08-2025 MCV (RBC) [Entitic vol] 91.4 fL 81-99 [facility] Mean corpuscular hemoglobin (MCH) determinationOrdered By: Jeanette Alexis on 02-08-2025 MCH (RBC) [Entitic mass] 28.6 pg 27.0-32.0 [facility] Mean corpuscular hemoglobin concentration (MCHC) determinationOrdered By: Jeanette Alexis on 02-08-2025 MCHC (RBC) [Mass/Vol] 31.3 g/dL Low 32-36 [facility] Mean platelet volume determi nationOrdered By: Jeanette Alexis on 02-08-2025 Platelet mean volume (Bld) [Entitic vol] 10.0 fL 6.2-12.0 [facility] Monocyte percentageOrdered B y: Jeanette Alexis on 02-08-2025 Monocytes/100 WBC (Bld) 5.0 % 0-10 [facility] Natriuretic peptide.B prohor susan N-Terminal [Mass/volume] in Serum or PlasmaOrdered By: Jeanette Alexis on 02-08-2025 Natriuretic peptide.B prohormone N-Terminal [Mass/Vol] 3153 pg/mL High <900 [facility] Comment on above: Heart Failure Unlike ly: < 300 pg/mLHeart Failure Likely< 50 Years: > 450 pg/mL50-75 Years: > 900 pg/mL>75 Years: > 1800 pg/mL Neutrophil percentageOrdered By: Jeanette Alexis on 02-08-2025 Neutrophils/100 WBC (Bld) 82.4 % High 47-70 [facility] Nucleated red blood cell per centageOrdered By: Jeanette Alexis on 02-08-2025 Nucleated RBC/100 WBC (Bld) [Ratio] 0 % 0-5 [facility] Platelet countOrdered By: Martha Alexis on 02-08-2025 Platelets (Bld) [#/Vol] 209 10*3/uL 150-450 [facility] Potassium measurement (mass/ volume)Ordered By: Jeanette Alexis on 02-08-2025 Potassium (Unsp spec) [Mass/Vol] 3.9 mmol/L 3.3-5.1 [facility] Pulmonary Visit Reporton Pulmonary Visit Report Normal [facility] RBC Auto (Bld) [#/Vol]Ordere d By: Jeanette Alexis on 02-08-2025 RBC (Bld) [#/Vol] 4.51 10*6/uL 4.2-5.4 [facility] Serum creatinine measurement (mass/volume)Ordered By: Jeanette Alexis on 02-08-2025 Creatinine [Mass/Vol] 1.94 mg/dL High 0.70-1.20 [facility] Serum globulin measurementOr dered By: Jeanette Alexis on 02-08-2025 Globulin (S) [Mass/Vol] 2.6 g/dL 2.2-4.2 [facility] Serum glucose measurement (m ass/volume)Ordered By: Jeanette Alexis on 02-08-2025 Glucose [Mass/Vol] 117 mg/dL High 70-99 [facility] Serum or plasma alanine prieto otransferase (ALT) measurementOrdered By: Jeanette Alexis on 02-08-2025 ALT [Catalytic activity/Vol] 23 U/L <35 [facility] Serum or plasma albumin radha urement (mass/volume)Ordered By: Jeanette Alexis on 02-08-2025 Albumin [Mass/Vol] 4.2 g/dL 3.4-4.8 [facility] Serum or plasma albumin/glob ulin mass ratioOrdered By: Jeanette Alexis on 02-08-2025 Albumin/Globulin [Mass ratio] 1.6 {ratio} 0.9-2.4 [facility] Serum or plasma alkaline travis sphatase measurementOrdered By: Jeanette Alexis on 02-08-2025 ALP [Catalytic activity/Vol] 62 U/L 35-104 [facility] Serum or plasma calcium radha urement (mass/volume)Ordered By: Jeanette Alexis on 02-08-2025 Calcium [Mass/Vol] 9.5 mg/dL 7.6-11.0 [facility] Serum or plasma urea nitroge n measurement (mass/volume)Ordered By: Jeanette Alexis on 02-08-2025 Urea nitrogen [Mass/Vol] 35 mg/dL High 4-19 [facility] Sodium levelOrdered By: Tripp Alexis on 02-08-2025 Sodium [Moles/Vol] 140 mmol/L 133-145 [facility] TSH DL <= 0.005 mIU/L QnOrde red By: Jeanette Alexis on 02-08-2025 TSH Qn 0.496 uIU/mL 0.300-4.200 [facility] Thyroid Stim Hormone (TSH)on 02-08-2025 TSH 0.496 uIU/mL Normal 0.300-4.200 [facility] Comment on above: Performed By: #### L 503.7505, L501.9598, L500.4050, L100.0100 ####[facility] [address] [place], [address] Total proteinOrdered By: Ralf adelina Vanesa on 02-08-2025 Protein [Mass/Vol] 6.8 g/dL 5.9-8.4 [facility] White blood cell (WBC) count Ordered By: Jeanette Vanesa on 02-08-2025 WBC (Bld) [#/Vol] 6.7 10*3/uL 4.4-11.0 [facility] 12 Lead EKGon 01-26-2025 12 Lead EKG Normal [facility] Absolute lymphocyte countOrd ered By: Diamond on 01-26-2025 Lymphocytes Auto (Unsp spec) [#/Vol] 1.21 10*3/uL 0.83-4.51 [facility] Absolute neutrophil countOrd ered By: on 01-26-2025 Neutrophils (Bld) [#/Vol] 2.5 10*3/uL 2.0-7.7 [facility] Anion gap in Serum or Plasma Ordered By: Renée Diamond on 01-26-2025 Anion gap [Moles/Vol] 12 mmol/L 5-15 [facility] Automated lymphocyte count a s percentage of total leukocytesOrdered By: Diamond on 01-26-2025 Lymphocytes/100 WBC Auto (Unsp spec) 26.7 % - [facility] BUN/creatinine ratioOrdered By: on 01-26-2025 Urea nitrogen/Creatinine [Mass ratio] 17.3 mg/mg 10-20 [facility] Basophil percentageOrdered B y: on 01-26-2025 Basophils/100 WBC (Bld) 1.1 % High 0-1 [facility] Bilirubin, totalOrdered By: Diamond on 01-26-2025 Bilirubin [Mass/Vol] 1.74 mg/dL High 0.00-1.30 [facility] CBC W/Diff, Automatedon 01-11 Absolute Lymph 1.21 X10 3/uL Normal 0.83-4.51 [facility] Comment on above: Performed By: #### L 501.9985, L501.9520, L100.0100, L300.3900, L500.4100, L500.4050 ####[facility] [address] [place], [address] Absolute Neut 2.5 X10 3/uL Normal 2.0-7.7 [facility] Comment on above: Performed By: #### L 501.9985, L501.9520, L100.0100, L300.3900, L500.4100, L500.4050 ####[facility] [address] [place], [address] Basophils/100 WBC (Bld) 1.1 % High 0-1 [facility] Comment on above: Performed By: #### L 501.9985, L501.9520, L100.0100, L300.3900, L500.4100, L500.4050 ####[facility] [address] [place], [address] Eosinophils/100 WBC (Bld) 3.5 % Normal 0-5 [facility] Comment on above: Performed By: #### L 501.9985, L501.9520, L100.0100, L300.3900, L500.4100, L500.4050 ####[facility] [address] [place], [address] Erythrocyte distribution width (RBC) [Ratio] 15.4 % High 11.6-14.6 [facility] Comment on above: Performed By: #### L 501.9985, L501.9520, L100.0100, L300.3900, L500.4100, L500.4050 ####[facility] [address] [place], [address] Hematocrit (Bld) [Volume fraction] 38.2 % Normal 37-47 [facility] Comment on above: Performed By: #### L 501.9985, L501.9520, L100.0100, L300.3900, L500.4100, L500.4050 ####[facility] [address] [place], [address] Hemoglobin (Bld) [Mass/Vol] 12.4 g/dL Normal 12.0-15.0 [facility] Comment on above: Performed By: #### L 501.9985, L501.9520, L100.0100, L300.3900, L500.4100, L500.4050 ####[facility] [address] [place], [address] IG% 0.400 Normal 0.0-0.9 [facility] Comment on above: Result Comment: IG% - Immature Granulocytes (promyelocytes, myelocytes andmetamyelocytes) > 1% indicates that a LEFT SHIFT is Present. Performed By: #### L 501.9985, L501.9520, L100.0100, L300.3900, L500.4100, L500.4050 ####[facility] [address] [place], [address] Lymphocytes/100 WBC (Bld) 26.7 % Normal 19-41 [facility] Comment on above: Performed By: #### L 501.9985, L501.9520, L100.0100, L300.3900, L500.4100, L500.4050 ####[facility] [address] [place], [address] MCH (RBC) [Entitic mass] 29.4 pg Normal 27.0-32.0 [facility] Comment on above: Performed By: #### L 501.9985, L501.9520, L100.0100, L300.3900, L500.4100, L500.4050 ####[facility] [address] [place], [address] MCHC (RBC) [Mass/Vol] 32.5 g/dL Normal 32-36 [facility] Comment on above: Performed By: #### L 501.9985, L501.9520, L100.0100, L300.3900, L500.4100, L500.4050 ####[facility] [address] [place], [address] MCV (RBC) [Entitic vol] 90.5 fL Normal 81-99 [facility] Comment on above: Performed By: #### L 501.9985, L501.9520, L100.0100, L300.3900, L500.4100, L500.4050 ####[facility] [address] [place], [address] Monocytes/100 WBC (Bld) 12.8 % High 0-10 [facility] Comment on above: Performed By: #### L 501.9985, L501.9520, L100.0100, L300.3900, L500.4100, L500.4050 ####[facility] [address] [place], [address] Neutrophils/100 WBC (Bld) 55.5 % Normal 47-70 [facility] Comment on above: Performed By: #### L 501.9985, L501.9520, L100.0100, L300.3900, L500.4100, L500.4050 ####[facility] [address] [place], [address] Nucleated RBC (Bld) [#/Vol] 0 10*3/uL Normal 0-5 [facility] Comment on above: Performed By: #### L 501.9985, L501.9520, L100.0100, L300.3900, L500.4100, L500.4050 ####[facility] [address] [place], [address] Platelet mean volume (Bld) [Entitic vol] 10.5 fL Normal 6.2-12.0 [facility] Comment on above: Performed By: #### L 501.9985, L501.9520, L100.0100, L300.3900, L500.4100, L500.4050 ####[facility] [address] [place], [address] Platelets (Bld) [#/Vol] 143 10*3/uL Low 150-450 [facility] Comment on above: Performed By: #### L 501.9985, L501.9520, L100.0100, L300.3900, L500.4100, L500.4050 ####[facility] [address] [place], [address] RBC (Bld) [#/Vol] 4.22 10*6/uL Normal 4.2-5.4 [facility] Comment on above: Performed By: #### L 501.9985, L501.9520, L100.0100, L300.3900, L500.4100, L500.4050 ####[facility] [address] [place], [address] RDW SD 50.3 fl High 35.1-43.9 [facility] Comment on above: Performed By: #### L 501.9985, L501.9520, L100.0100, L300.3900, L500.4100, L500.4050 ####[facility] [address] [place], [address] WBC (Bld) [#/Vol] 4.5 10*3/uL Normal 4.4-11.0 [facility] Comment on above: Performed By: #### L 501.9985, L501.9520, L100.0100, L300.3900, L500.4100, L500.4050 ####[facility] [address] [place], [address] Calculated very low density lipoprotein (VLDL) cholesterol measurementOrdered By: Renée Fields on 01-26-2025 Calculated very low density lipoprotein (VLDL) cholesterol measurement 13 mg/dL 5-40 [facility] Carbon dioxide, total [Moles /volume] in Central venous bloodOrdered By: Renée Fields on 01-26-2025 CO2 [Moles/Vol] 19.5 mmol/L Low 21.0-32.0 [facility] Chloride assayOrdered By: Jania mcgee Diamond on 01-26-2025 Chloride [Moles/Vol] 109 mmol/L High 98-108 [facility] Comprehensive Metabolic Prof ilon 01-26-2025 Albumin [Mass/Vol] 3.8 g/dL Normal 3.4-4.8 [facility] Comment on above: Performed By: #### L 501.9985, L501.9520, L100.0100, L300.3900, L500.4100, L500.4050 ####[facility] [address] [place], [address] Albumin/Globulin [Mass ratio] 1.7 {ratio} Normal 0.9-2.4 [facility] Comment on above: Performed By: #### L 501.9985, L501.9520, L100.0100, L300.3900, L500.4100, L500.4050 ####[facility] [address] [place], [address] ALK PHOS 55 U/L Normal 35-104 [facility] Comment on above: Performed By: #### L 501.9985, L501.9520, L100.0100, L300.3900, L500.4100, L500.4050 ####[facility] [address] [place], [address] ALT [Catalytic activity/Vol] 24 U/L Normal <=34 [facility] Comment on above: Performed By: #### L 501.9985, L501.9520, L100.0100, L300.3900, L500.4100, L500.4050 ####[facility] [address] [place], [address] AST [Catalytic activity/Vol] 33 U/L High <=31 [facility] Comment on above: Performed By: #### L 501.9985, L501.9520, L100.0100, L300.3900, L500.4100, L500.4050 ####[facility] [address] [place], [address] Bilirubin [Mass/Vol] 1.74 mg/dL High 0.00-1.30 [facility] Comment on above: Performed By: #### L 501.9985, L501.9520, L100.0100, L300.3900, L500.4100, L500.4050 ####[facility] [address] [place], [address] BUN/CRE 17.3 RATIO Normal 10-20 [facility] Comment on above: Performed By: #### L 501.9985, L501.9520, L100.0100, L300.3900, L500.4100, L500.4050 ####[facility] [address] [place], [address] Calcium [Mass/Vol] 9.4 mg/dL Normal 7.6-11.0 [facility] Comment on above: Performed By: #### L 501.9985, L501.9520, L100.0100, L300.3900, L500.4100, L500.4050 ####[facility] [address] [place], [address] Chloride [Moles/Vol] 109 mmol/L High 98-108 [facility] Comment on above: Performed By: #### L 501.9985, L501.9520, L100.0100, L300.3900, L500.4100, L500.4050 ####[facility] [address] [place], [address] CO2 [Moles/Vol] 19.5 mmol/L Low 21.0-32.0 [facility] Comment on above: Performed By: #### L 501.9985, L501.9520, L100.0100, L300.3900, L500.4100, L500.4050 ####[facility] [address] [place], [address] Creatinine [Mass/Vol] 1.28 mg/dL High 0.70-1.20 [facility] Comment on above: Performed By: #### L 501.9985, L501.9520, L100.0100, L300.3900, L500.4100, L500.4050 ####[facility] [address] [place], [address] ECRCL 38.29 ml/min Low 50-250 [facility] Comment on above: Performed By: #### L 501.9985, L501.9520, L100.0100, L300.3900, L500.4100, L500.4050 ####[facility] [address] [place], [address] GAP 12 Normal 5-15 [facility] Comment on above: Performed By: #### L 501.9985, L501.9520, L100.0100, L300.3900, L500.4100, L500.4050 ####[facility] [address] [place], [address] GFR/1.73 sq M.predicted among non-blacks MDRD (S/P/Bld) [Vol rate/Area] 45 mL/min/{1.73_m2} Low >60 [facility] Comment on above: Result Comment: mL/m in/1.73m2 CKD-EPI Creatinine Equation (2020) Performed By: #### L 501.9985, L501.9520, L100.0100, L300.3900, L500.4100, L500.4050 ####[facility] [address] [place], [address] Globulin (S) [Mass/Vol] 2.3 g/dL Normal 2.2-4.2 [facility] Comment on above: Performed By: #### L 501.9985, L501.9520, L100.0100, L300.3900, L500.4100, L500.4050 ####[facility] [address] [place], [address] Glucose [Mass/Vol] 79 mg/dL Normal 70-99 [facility] Comment on above: Performed By: #### L 501.9985, L501.9520, L100.0100, L300.3900, L500.4100, L500.4050 ####[facility] [address] [place], [address] Potassium [Moles/Vol] 3.9 mmol/L Normal 3.3-5.1 [facility] Comment on above: Performed By: #### L 501.9985, L501.9520, L100.0100, L300.3900, L500.4100, L500.4050 ####[facility] [address] [place], [address] Sodium [Moles/Vol] 140 mmol/L Normal 133-145 [facility] Comment on above: Performed By: #### L 501.9985, L501.9520, L100.0100, L300.3900, L500.4100, L500.4050 ####[facility] [address] [place], [address] T PROT 6.0 g/dL Normal 5.9-8.4 [facility] Comment on above: Performed By: #### L 501.9985, L501.9520, L100.0100, L300.3900, L500.4100, L500.4050 ####[facility] [address] [place], [address] Urea nitrogen [Mass/Vol] 22 mg/dL High 4-19 [facility] Comment on above: Performed By: #### L 501.9985, L501.9520, L100.0100, L300.3900, L500.4100, L500.4050 ####[facility] [address] [place], [address] Discharge Instructionon 01-11 Discharge Instruction Normal [facility] Echocardiogram study reportO rdered By: Trevor Barajas on 01-26-2025 Study report [facility] [address] [place] [address] Echo Complete 01/26/25 1033 MR#: [id number] Acct: [id number] Name: EM DANIEL SUZETTE Rep #:[id number] : 1955 69 From: Trevor Delgado Attending Dr: Dr. Yordy Warren, DO Status: ADM MARIE Ordering Dr: Renée Fields MD Date: 01/25/25 Location: U Sex: F C Admitted: 01/25/25 Reason For Study Reason For Study: TIA/CVA Procedure This was a 2D Doppler, Color Flow transthoracic echocardiogram. Exam performed portable in patient room. Left Ventricle Normal LV size. The left ventricular ejection fraction is 35 %. There is moderate global hypokinesis of the left ventricle. Right Ventricle Normal RV size. ICD or pacer leads identified within the right ventricle. Normalsystolic function. Atria The left atrium is severely enlarged. The right atrium is moderately enlarged. Mitral Valve Mean transmitral valve gradient 2.3 mmHg. Stable appearing mechanical mitral valve apparatus. Tricuspid Valve Normal tricuspid valve. Mild to moderate (1-2+) tricuspid valve insufficiency. Pulmonary artery systolic pressure is 52 mmHg. Aortic Valve Normal aortic valve. Trisinus/trileaflet aortic valve. Pulmonic Valve Normal pulmonic valve. Mild (1+) pulmonic valve insufficiency. Great Vessels Normal aortic root. The pulmonary artery is normal size. The inferior vena cava is dilated. Pericardium/Pleural No pericardial effusion. MMode/2D Measurements & Calculations LVIDd: 5.2 cm IVSd: 0.88 cm Ao root diam: 3.1 cm LVIDs: 4.4 cm LVPWd: 0.90 cm RVDd: 4.1 cm FS: 14.9 % LAV(MOD-sp4): 133.9 ml LVAd ap4: 26.6 cm2 SV(MOD-sp4): 30.7 ml LVLd ap4: 7.4 cm SI(MOD-sp4): 18.1 ml/m2 EDV(MOD-sp4): 80.0 ml EDV(sp4-el): 80.8 ml LVAs ap4: 20.2 cm2 LVLs ap4: 7.0 cm ESV(MOD-sp4): 49.3 ml ESV(sp4-el): 49.8 ml EF(MOD-sp4): 38.3 % EF(sp4-el): 38.3 % SV(sp4-el): 31.0 ml LA A4 area: 34.0 cm2 LA dimension(2D): 5.9 cm TAPSE: 1.5 cm Time Measurements MV dec time: 0.16 sec Doppler Measurements & Calculations MV E max flower: 137.3 cm/sec Lat Peak E' Flower: 5.6 cm/sec Med Peak E' Flower: 4.6 cm/sec MV A max flower: 37.8 cm/sec E/E' lat: 24.5 E/E' med: 29.7 MV E/A: 3.6 MV V2 max: 135.2 cm/sec MV P1/2t max flower: 140.4 cm/sec Ao V2 max: 91.3 cm/sec MV max P.3 mmHg MV P1/2t: 58.6 msec Ao max P.3 mmHg MV V2 mean: 68.1 cm/sec MV dec slope: 702.2 cm/sec2 Ao V2 mean: 55.0 cm/sec MV mean P.3 mmHg Ao mean P.4 mmHg MV V2 VTI: 26.8 cm MVA(P1/2t): 3.8 cm2 Ao V2 VTI: 15.3 cm AV (velocity ratio): 0.85 LV V1 max: 77.7 cm/sec PA V2 max: 58.1 cm/sec PI dec slope: 167.7 cm/sec2 LV V1 max P.4 mmHg PA V2 mean: 41.3 cm/sec LV V1 mean P.1 mmHg LV V1 mean: 49.6 cm/sec LV V1 VTI: 12.9 cm TR max flower: 349.5 cm/sec TR max P.9 mmHg ECHO/Echo Complete Interpretation Summary The left ventricular ejection fraction is 35 %. There is moderate global hypokinesis of the left ventricle. Normal LV size. Stable appearing mechanical mitral valve apparatus. Mild to moderate (1-2+) tricuspid valve insufficiency. Pulmonary artery systolic pressure is 52 mmHg. Ordering Physician: Renée Fields Referring Physician: Roseline Barakat Performed By: Madhavi Burnette, RDCS, RVT 01/26/25 1254 Date _ Trevor Barajas MD CC: Dr. Roseline Barakat MD; Dr. Renée Fields MD; Dr. Yordy Warren, DO ~ Date Dictated: 01/26/25 1033 Date Transcribed: 01/26/25 1254 Office Workforce Planner: Signed [facility] Work Phone: Eosinophil percentageOrdered By: Renée Fields on 01-26-2025 Eosinophils/100 WBC (Bld) 3.5 % 0-5 [facility] Erythrocyte distribution wid th ratioOrdered By: Renée Fields on 01-26-2025 Erythrocyte distribution width (RBC) [Ratio] 15.4 % High 11.6-14.6 [facility] Erythrocyte distribution wid th standard deviationOrdered By: Renée Fields on 01-26-2025 Erythrocyte distribution width (RBC) [Ratio] 50.3 fl High 35.1-43.9 [facility] Glomerular filtration rate ( GFR) estimation/1.73 sq m using serum, plasma, or whole bOrdered By: Renée Fields on 01-26-2025 GFR/1.73 sq M.predicted among non-blacks MDRD (S/P/Bld) [Vol rate/Area] 45 mL/min/{1.73_m2} Low >60 [facility] Comment on above: mL/min/1.73m2 CKD-EP I Creatinine Equation (2020) Hematocrit Auto (Bld) [Volum e fraction]Ordered By: Renée Fields on 01-26-2025 Hematocrit (Bld) [Volume fraction] 38.2 % 37-47 [facility] Hemoglobin A1con 01-26-2025 HbA1c (Bld) [Mass fraction] 5.9 % High <=5.6 [facility] Comment on above: Result Comment: Norm al < 5.7 % Prediabetic 5.7 - 6.4 % Diabetic >or= 6.5 % Please note range changes. Performed By: #### L 501.9985, L501.9520, L100.0100, L300.3900, L500.4100, L500.4050 ####[facility] [address] [place], [address] Hemoglobin A1c percentageOrd ered By: Renée Fields on 01-26-2025 HbA1c (Bld) [Mass fraction] 5.9 % High <5.7 [facility] Comment on above: Normal < 5.7 % Predi abetic 5.7 - 6.4 % Diabetic >or= 6.5 % Please note range changes. Hemoglobin measurementOrdere d By: Renée Fields on 01-26-2025 Hemoglobin (Bld) [Mass/Vol] 12.4 g/dL 12.0-15.0 [facility] Immature granulocytes/100 WB C Auto (Bld)Ordered By: Reéne Fields on 01-26-2025 Immature granulocytes/100 WBC (Bld) 0.400 % 0.0-0.9 [facility] Comment on above: IG% - Immature Granu locytes (promyelocytes, myelocytes and metamyelocytes) > 1% indicates that a LEFT SHIFT is Present. International normalized rat io (INR) calculationOrdered By: Renée Fields on 01-26-2025 INR Coag (Bld) [Relative time] 2.8 {INR} [facility] LDL calc ser/plasOrdered By: Renée Fields on 01-26-2025 Cholesterol in LDL [Mass/Vol] 49 mg/dL [facility] Comment on above: Kemueuxggs=689-185 m g/dL & Higher Frda=609 mg/dL or greater Laboratory - Chemistry and C hemistry - challengeOrdered By: Renée Fields on 01-26-2025 AST [Catalytic activity/Vol] 33 U/L High <32 [facility] Lipid Profileon 01-26-2025 CHOL:HDL 2.47 Normal [facility] Comment on above: Performed By: #### L 501.9985, L501.9520, L100.0100, L300.3900, L500.4100, L500.4050 ####[facility] [address] [place], [place], [address] Cholesterol [Mass/Vol] 105 mg/dL Normal <=200 [facility] Comment on above: Result Comment: Chol esterol level, Desirable <200 mg/dLBorderline high cholesterol 200-239 mg/dLHigh cholesterol >=240 mg/dLRecommendations of the NCEP Adult Treatment Panel for thefollowing risk-cutoff thresholds for the [place] Americanpopulation. Performed By: #### L 501.9985, L501.9520, L100.0100, L300.3900, L500.4100, L500.4050 ####[facility] [address] [place], [address] Cholesterol in HDL [Mass/Vol] 43 mg/dL Normal [facility] Comment on above: Result Comment: Mariama onal Cholesterol Education Program (NCEP) guidelines:<40 mg/dL: Low HDL-cholesterol (major risk factor for CHD)>= 60 mg/dL: High HDL-cholesterol (negative risk factor forCHD)HDL-cholesterol is affected by a number of factors, e.g.smoking, exercise, hormones, sex and age. Performed By: #### L 501.9985, L501.9520, L100.0100, L300.3900, L500.4100, L500.4050 ####[facility] [address] [place], [address] Cholesterol in LDL [Mass/Vol] 49 mg/dL Normal [facility] Comment on above: Result Comment: Bord dcqpgh=666-713 mg/dL Higher Lpdl=737 mg/dL or greater Performed By: #### L 501.9985, L501.9520, L100.0100, L300.3900, L500.4100, L500.4050 ####[facility] [address] [place], [address] Cholesterol in VLDL [Mass/Vol] 13 mg/dL Normal 5-40 [facility] Comment on above: Performed By: #### L 501.9985, L501.9520, L100.0100, L300.3900, L500.4100, L500.4050 ####[facility] [address] [place], [address] Triglyceride [Mass/Vol] 67 mg/dL Normal [facility] Comment on above: Result Comment: The drugs N-Acetylcysteine and Metamizole may falselydepress this assay.Normal range: <150 mg/dLBorderline High: 150-199 mg/dLHigh: 200-499 mg/dLVery High: >500 mg/dL Performed By: #### L 501.9985, L501.9520, L100.0100, L300.3900, L500.4100, L500.4050 ####[facility] [address] [facility] [place], [address] MCV (mean corpuscular volume ) determinationOrdered By: Renée White on 01-26-2025 MCV (RBC) [Entitic vol] 90.5 fL 81-99 [facility] Magnesiumon 01-26-2025 Magnesium [Mass/Vol] 2.5 mg/dL High 1.5-2.2 [facility] Comment on above: Performed By: #### L 501.5200 ####[facility] [address] [place], [place], [id number] Magnesium measurement (mass/ volume)Ordered By: Siena Sheldon on 01-26-2025 Magnesium (Unsp spec) [Mass/Vol] 2.5 mg/dL High 1.5-2.2 [facility] Mean corpuscular hemoglobin (MCH) determinationOrdered By: on 01-26-2025 MCH (RBC) [Entitic mass] 29.4 pg 27.0-32.0 [facility] Mean corpuscular hemoglobin concentration (MCHC) determinationOrdered By: on 01-26-2025 MCHC (RBC) [Mass/Vol] 32.5 g/dL 32-36 [facility] Mean platelet volume determi nationOrdered By: White on 01-26-2025 Platelet mean volume (Bld) [Entitic vol] 10.5 fL 6.2-12.0 [facility] Monocyte percentageOrdered B y: White on 01-26-2025 Monocytes/100 WBC (Bld) 12.8 % High 0-10 [facility] Neutrophil percentageOrdered By: White on 01-26-2025 Neutrophils/100 WBC (Bld) 55.5 % 47-70 [facility] Nucleated red blood cell per centageOrdered By: White on 01-26-2025 Nucleated RBC/100 WBC (Bld) [Ratio] 0 % 0-5 [facility] Platelet countOrdered By: Jania Fields on 01-26-2025 Platelets (Bld) [#/Vol] 143 10*3/uL Low 150-450 [facility] Potassium measurement (mass/ volume)Ordered By: Renée Fields on 01-26-2025 Potassium (Unsp spec) [Mass/Vol] 3.9 mmol/L 3.3-5.1 [facility] Prothrombin Time w/INRon INR Coag (PPP) [Relative time] 2.8 {INR} Normal [facility] Comment on above: Performed By: #### L 501.9985, L501.9520, L100.0100, L300.3900, L500.4100, L500.4050 ####[facility] [address] [place], [place], [phone] PT Coag (PPP) [Time] 30.3 s High 11.7-14.9 [facility] Comment on above: Performed By: #### L 501.9985, L501.9520, L100.0100, L300.3900, L500.4100, L500.4050 ####[facility] [address] [place], [place], [phone] Prothrombin timeOrdered By: Renée Fields on 01-26-2025 PT Coag (PPP) [Time] 30.3 s High 11.7-14.9 [facility] RBC Auto (Bld) [#/Vol]Ordere d By: Renée Fields on 01-26-2025 RBC (Bld) [#/Vol] 4.22 10*6/uL 4.2-5.4 [facility] Screening total cholesterol/ high density lipoprotein (HDL) cholesterol ratioOrdered By: Renée Fields on 01-26-2025 Cholesterol.total/Cho lesterol in HDL [Mass ratio] 2.47 {ratio} [facility] Serum creatinine measurement (mass/volume)Ordered By: Renée Fields on 01-26-2025 Creatinine [Mass/Vol] 1.28 mg/dL High 0.70-1.20 [facility] Serum globulin measurementOr dered By: Renée Fields on 01-26-2025 Globulin (S) [Mass/Vol] 2.3 g/dL 2.2-4.2 [facility] Serum glucose measurement (m ass/volume)Ordered By: Renée Fields on 01-26-2025 Glucose [Mass/Vol] 79 mg/dL 70-99 [facility] Serum or plasma alanine prieto otransferase (ALT) measurementOrdered By: Renée Fields on 01-26-2025 ALT [Catalytic activity/Vol] 24 U/L <35 [facility] Serum or plasma albumin radha urement (mass/volume)Ordered By: Renée Fields on 01-26-2025 Albumin [Mass/Vol] 3.8 g/dL 3.4-4.8 [facility] Serum or plasma albumin/glob ulin mass ratioOrdered By: Renée Fields 01-26-2025 Albumin/Globulin [Mass ratio] 1.7 {ratio} 0.9-2.4 [facility] Serum or plasma alkaline travis sphatase measurementOrdered By: Renée Fields 01-26-2025 ALP [Catalytic activity/Vol] 55 U/L 35-104 [facility] Serum or plasma calcium radha urement (mass/volume)Ordered By: Renée Fields 01-26-2025 Calcium [Mass/Vol] 9.4 mg/dL 7.6-11.0 [facility] Serum or plasma cholesterol in HDL measurement (mass/volume)Ordered By: Renée Fields 01-26-2025 Cholesterol in HDL [Mass/Vol] 43 mg/dL >40 [facility] Comment on above: National Cholesterol Education Program (NCEP) guidelines:<40 mg/dL: Low HDL-cholesterol (major risk factor for CHD)>= 60 mg/dL: High HDL-cholesterol (negative risk factor for CHD)HDL-cholesterol is affected by a number of factors, e.g. smoking, exercise, hormones, sex and age. Serum or plasma cholesterol measurement (mass/volume)Ordered By: Renée Fields on 01-26-2025 Cholesterol [Mass/Vol] 105 mg/dL <201 [facility] Comment on above: Cholesterol level, D esirable <200 mg/dLBorderline high cholesterol 200-239 mg/dLHigh cholesterol >=240 mg/dLRecommendations of the NCEP Adult Treatment Panel for the following risk-cutoff thresholds for the [place] population. Serum or plasma urea nitroge n measurement (mass/volume)Ordered By: Renée Fields on 01-26-2025 Urea nitrogen [Mass/Vol] 22 mg/dL High 4-19 [facility] Sodium levelOrdered By: Autu mn Diamond on 01-26-2025 Sodium [Moles/Vol] 140 mmol/L 133-145 [facility] TSH DL <= 0.005 mIU/L QnOrde red By: Renée Fields on 01-26-2025 TSH Qn 0.744 uIU/mL 0.300-4.200 [facility] Thyroid Stim Hormone (TSH)on 01-26-2025 TSH 0.744 uIU/mL Normal 0.300-4.200 [facility] Comment on above: Performed By: #### L 501.9985, L501.9520, L100.0100, L300.3900, L500.4100, L500.4050 ####[facility] [address] [place], [address] Total proteinOrdered By: Aut umn Diamond on 01-26-2025 Protein [Mass/Vol] 6.0 g/dL 5.9-8.4 [facility] Triglycerides measurementOrd ered By: Renée Fields on 01-26-2025 Triglyceride [Mass/Vol] 67 mg/dL <199 [facility] Comment on above: The drugs N-Acetylcy steine and Metamizole may falsely depress this assay. Normal range: <150 mg/dLBorderline High: 150-199 mg/dLHigh: 200-499 mg/dLVery High: >500 mg/dL White blood cell (WBC) count Ordered By: Renée Fields on 01-26-2025 WBC (Bld) [#/Vol] 4.5 10*3/uL 4.4-11.0 [facility] 12 Lead EKGon 01-25-2025 12 Lead EKG Normal [facility] Absolute lymphocyte countOrd ered By: Ady Lizarraga on 01-25-2025 Lymphocytes Auto (Unsp spec) [#/Vol] 1.02 10*3/uL 0.83-4.51 [facility] Absolute neutrophil countOrd ered By: Ady Lizarraga on 01-25-2025 Neutrophils (Bld) [#/Vol] 3.4 10*3/uL 2.0-7.7 [facility] Activated partial thrombopla stin time (aPTT) in platelet poor plasma by coagulation aOrdered By: Ady Lizarraga on 01-25-2025 aPTT Coag (PPP) [Time] 36.5 s High 24.1-36.2 [facility] Anion gap in Serum or Plasma Ordered By: Ady Lizarraga on 01-25-2025 Anion gap [Moles/Vol] 14 mmol/L 01-25 [facility] Automated lymphocyte count a s percentage of total leukocytesOrdered By: Ady Lizarraga on 01-25-2025 Lymphocytes/100 WBC Auto (Unsp spec) 19.3 % - [facility] BUN/creatinine ratioOrdered By: dAy Lizarraga on 01-25-2025 Urea nitrogen/Creatinine [Mass ratio] 19.2 mg/mg - [facility] Basic Metabolic Profile (BMP )on 01-25-2025 BUN/CRE 19.2 RATIO Normal - [facility] Comment on above: Performed By: #### L 300.4310, L300.3900, L100.0100, L501.4021, L500.2500 ####[facility] [address] [place], [address] Calcium [Mass/Vol] 9.4 mg/dL Normal 7.6-11.0 [facility] Comment on above: Performed By: #### L 300.4310, L300.3900, L100.0100, L501.4021, L500.2500 ####[facility] [address] [place], [address] Chloride [Moles/Vol] 106 mmol/L Normal 98-108 [facility] Comment on above: Performed By: #### L 300.4310, L300.3900, L100.0100, L501.4021, L500.2500 ####[facility] [address] [place], [address] CO2 [Moles/Vol] 18.5 mmol/L Low 21.0-32.0 [facility] Comment on above: Performed By: #### L 300.4310, L300.3900, L100.0100, L501.4021, L500.2500 ####[facility] [address] [place], [address] Creatinine [Mass/Vol] 1.59 mg/dL High 0.70-1.20 [facility] Comment on above: Performed By: #### L 300.4310, L300.3900, L100.0100, L501.4021, L500.2500 ####[facility] [address] [place], [address] ECRCL 29.63 ml/min Low 50-250 [facility] Comment on above: Performed By: #### L 300.4310, L300.3900, L100.0100, L501.4021, L500.2500 ####[facility] [address] [place], [address] GAP 14 Normal 5-15 [facility] Comment on above: Performed By: #### L 300.4310, L300.3900, L100.0100, L501.4021, L500.2500 ####[facility] [address] [place], [address] GFR/1.73 sq M.predicted among non-blacks MDRD (S/P/Bld) [Vol rate/Area] 35 mL/min/{1.73_m2} Low >60 [facility] Comment on above: Result Comment: mL/m in/1.73m2 CKD-EPI Creatinine Equation (2020) Performed By: #### L 300.4310, L300.3900, L100.0100, L501.4021, L500.2500 ####[facility] [address] [place], [address] Glucose [Mass/Vol] 132 mg/dL High 70-99 [facility] Comment on above: Performed By: #### L 300.4310, L300.3900, L100.0100, L501.4021, L500.2500 ####[facility] [address] [place], [address] Potassium [Moles/Vol] 4.0 mmol/L Normal 3.3-5.1 [facility] Comment on above: Performed By: #### L 300.4310, L300.3900, L100.0100, L501.4021, L500.2500 ####[facility] [address] [place], [address] Sodium [Moles/Vol] 138 mmol/L Normal 133-145 [facility] Comment on above: Performed By: #### L 300.4310, L300.3900, L100.0100, L501.4021, L500.2500 ####[facility] [address] [place], [address] Urea nitrogen [Mass/Vol] 31 mg/dL High 4-19 [facility] Comment on above: Performed By: #### L 300.4310, L300.3900, L100.0100, L501.4021, L500.2500 ####[facility] [address] [place], [address] Basophil percentageOrdered B y: Ady Lizarraga on 01-25-2025 Basophils/100 WBC (Bld) 0.6 % 0-1 [facility] Bedside Glucoseon 01-25-2025 FINGERSTICK GLU 134 mg/dL High 74-106 [facility] Comment on above: Result Comment: VERNON SUEENT OF PATIENT CARE PER NURSING PROTOCOL Performed By: #### L 501.080 ####[facility] [address] [place], [address] CBC W/Diff, Automatedon 05-1 5-2024 Absolute Lymph 1.02 X10 3/uL Normal 0.83-4.51 [facility] Comment on above: Performed By: #### L 300.4310, L300.3900, L100.0100, L501.4021, L500.2500 ####[facility] [address] [place], [address] Absolute Neut 3.4 X10 3/uL Normal 2.0-7.7 [facility] Comment on above: Performed By: #### L 300.4310, L300.3900, L100.0100, L501.4021, L500.2500 ####[facility] [address] [place], [address] Basophils/100 WBC (Bld) 0.6 % Normal 0-1 [facility] Comment on above: Performed By: #### L 300.4310, L300.3900, L100.0100, L501.4021, L500.2500 ####[facility] [address] [place], [address] Eosinophils/100 WBC (Bld) 1.9 % Normal 0-5 [facility] Comment on above: Performed By: #### L 300.4310, L300.3900, L100.0100, L501.4021, L500.2500 ####[facility] [address] [place], [address] Erythrocyte distribution width (RBC) [Ratio] 15.4 % High 11.6-14.6 [facility] Comment on above: Performed By: #### L 300.4310, L300.3900, L100.0100, L501.4021, L500.2500 ####[facility] [address] [place], [address] Hematocrit (Bld) [Volume fraction] 40.1 % Normal 37-47 [facility] Comment on above: Performed By: #### L 300.4310, L300.3900, L100.0100, L501.4021, L500.2500 ####[facility] [address] [place], [address] Hemoglobin (Bld) [Mass/Vol] 13.1 g/dL Normal 12.0-15.0 [facility] Comment on above: Performed By: #### L 300.4310, L300.3900, L100.0100, L501.4021, L500.2500 ####[facility] [address] [place], [address] IG% 0.400 Normal 0.0-0.9 [facility] Comment on above: Result Comment: IG% - Immature Granulocytes (promyelocytes, myelocytes andmetamyelocytes) > 1% indicates that a LEFT SHIFT is Present. Performed By: #### L 300.4310, L300.3900, L100.0100, L501.4021, L500.2500 ####[facility] [address] [place], [address] Lymphocytes/100 WBC (Bld) 19.3 % Normal 19-41 [facility] Comment on above: Performed By: #### L 300.4310, L300.3900, L100.0100, L501.4021, L500.2500 ####[facility] [address] [place], [address] MCH (RBC) [Entitic mass] 29.6 pg Normal 27.0-32.0 [facility] Comment on above: Performed By: #### L 300.4310, L300.3900, L100.0100, L501.4021, L500.2500 ####[facility] [address] [place], [address] MCHC (RBC) [Mass/Vol] 32.7 g/dL Normal 32-36 [facility] Comment on above: Performed By: #### L 300.4310, L300.3900, L100.0100, L501.4021, L500.2500 ####[facility] [address] [place], [address] MCV (RBC) [Entitic vol] 90.5 fL Normal 81-99 [facility] Comment on above: Performed By: #### L 300.4310, L300.3900, L100.0100, L501.4021, L500.2500 ####[facility] [address] [place], [address] Monocytes/100 WBC (Bld) 12.9 % High 0-10 [facility] Comment on above: Performed By: #### L 300.4310, L300.3900, L100.0100, L501.4021, L500.2500 ####[facility] [address] [place], [address] Neutrophils/100 WBC (Bld) 64.9 % Normal 47-70 [facility] Comment on above: Performed By: #### L 300.4310, L300.3900, L100.0100, L501.4021, L500.2500 ####[facility] [address] [place], [address] Nucleated RBC (Bld) [#/Vol] 0 10*3/uL Normal 0-5 [facility] Comment on above: Performed By: #### L 300.4310, L300.3900, L100.0100, L501.4021, L500.2500 ####[facility] [address] [place], [address] Platelet mean volume (Bld) [Entitic vol] 9.3 fL Normal 6.2-12.0 [facility] Comment on above: Performed By: #### L 300.4310, L300.3900, L100.0100, L501.4021, L500.2500 ####[facility] [address] [place], [address] Platelets (Bld) [#/Vol] 151 10*3/uL Normal 150-450 [facility] Comment on above: Performed By: #### L 300.4310, L300.3900, L100.0100, L501.4021, L500.2500 ####[facility] [address] [place], [address] RBC (Bld) [#/Vol] 4.43 10*6/uL Normal 4.2-5.4 [facility] Comment on above: Performed By: #### L 300.4310, L300.3900, L100.0100, L501.4021, L500.2500 ####[facility] [address] [place], [address] RDW SD 50.5 fl High 35.1-43.9 [facility] Comment on above: Performed By: #### L 300.4310, L300.3900, L100.0100, L501.4021, L500.2500 ####[facility] [address] [place], [address] WBC (Bld) [#/Vol] 5.3 10*3/uL Normal 4.4-11.0 [facility] Comment on above: Performed By: #### L 300.4310, L300.3900, L100.0100, L501.4021, L500.2500 ####[facility] [address] [place], [address] Carbon dioxide, total [Moles /volume] in Central venous bloodOrdered By: Ady Lizarraga on 01-25-2025 CO2 [Moles/Vol] 18.5 mmol/L Low 21.0-32.0 [facility] Chloride assayOrdered By: Archie Lizarraga on 01-25-2025 Chloride [Moles/Vol] 106 mmol/L 98-108 [facility] Echo Completeon 01-25-2025 Echo Complete Normal [facility] Emergency Department Summary on 01-25-2025 Emergency Department Summary Normal [facility] Eosinophil percentageOrdered By: Ady Lizarraga on 01-25-2025 Eosinophils/100 WBC (Bld) 1.9 % 0-5 [facility] Erythrocyte distribution wid th ratioOrdered By: Ady Lizarraga on 01-25-2025 Erythrocyte distribution width (RBC) [Ratio] 15.4 % High 11.6-14.6 [facility] Erythrocyte distribution wid th standard deviationOrdered By: Ady Lizarraga on 01-25-2025 Erythrocyte distribution width (RBC) [Ratio] 50.5 fl High 35.1-43.9 [facility] Glomerular filtration rate ( GFR) estimation/1.73 sq m using serum, plasma, or whole bOrdered By: Ady Lizarraga on 01-25-2025 GFR/1.73 sq M.predicted among non-blacks MDRD (S/P/Bld) [Vol rate/Area] 35 mL/min/{1.73_m2} Low >60 [facility] Comment on above: mL/min/1.73m2 CKD-EP I Creatinine Equation (2020) [facility]dered By: Ady Lizarraga on 01-25-2025 Glucose [Mass/Vol] 134 mg/dL High 74-106 [facility] Comment on above: MANAGEMENT OF PATIEN T CARE PER NURSING PROTOCOL H AND P Exam - Hospitaliston 01-25-2025 H&P Exam - Hospitalist Normal [facility] Hematocrit Auto (Bld) [Volum e fraction]Ordered By: Ady Lizarraga on 01-25-2025 Hematocrit (Bld) [Volume fraction] 40.1 % 37-47 [facility] Hemoglobin measurementOrdere d By: Ady Lizarraga on 01-25-2025 Hemoglobin (Bld) [Mass/Vol] 13.1 g/dL 12.0-15.0 [facility] Immature granulocytes/100 WB C Auto (Bld)Ordered By: Ady Lizarraga on 01-25-2025 Immature granulocytes/100 WBC (Bld) 0.400 % 0.0-0.9 [facility] Comment on above: IG% - Immature Granu locytes (promyelocytes, myelocytes and metamyelocytes) > 1% indicates that a LEFT SHIFT is Present. International normalized rat io (INR) calculationOrdered By: Ady Lizarraga on 01-25-2025 INR Coag (Bld) [Relative time] 2.7 {INR} [facility] L499.0042on 01-25-2025 Trop T High Sen 121 ng/L Invalid Interpretation Code <=14 [facility] Comment on above: Result Comment: Crit ical Result(s) Called JUSTIN at: 1523 by:JESSE??Results read back by same. Performed By: #### L 499.0042 ####[facility] [address] [place], [place], [address] L499.0043on 01-25-2025 Trop T High Sen 122 ng/L Invalid Interpretation Code <=14 [facility] Comment on above: Result Comment: Crit ical Result(s) Called KAYLAH GUY at: 1804 by:JESSE??Results read back by same. Performed By: #### L 499.0043 ####[facility] [address] [place], [address] L501.4021on 01-25-2025 Trop T High Sen 135 ng/L Invalid Interpretation Code <=14 [facility] Comment on above: Result Comment: Crit ical Result(s) Called at 1302: by: HEIDI VILLAFANA. ??Results read back by same. Performed By: #### L 300.4310, L300.3900, L100.0100, L501.4021, L500.2500 ####[facility] [address] [place], [place], [address] MCV (mean corpuscular volume ) determinationOrdered By: Ady Lizarraga on 01-25-2025 MCV (RBC) [Entitic vol] 90.5 fL 81-99 [facility] Magnesiumon 01-25-2025 Magnesium [Mass/Vol] 2.4 mg/dL High 1.5-2.2 [facility] Comment on above: Order Comment: Comme nts: may add to ED labs Performed By: #### L 501.5200 ####[facility] [address] [place], [address] Magnesium measurement (mass/ volume)Ordered By: Renée Fields on 01-25-2025 Magnesium (Unsp spec) [Mass/Vol] 2.4 mg/dL High 1.5-2.2 [facility] Mean corpuscular hemoglobin (MCH) determinationOrdered By: Ady Lizarraga on 01-25-2025 MCH (RBC) [Entitic mass] 29.6 pg 27.0-32.0 [facility] Mean corpuscular hemoglobin concentration (MCHC) determinationOrdered By: Ady Lizarraga on 01-25-2025 MCHC (RBC) [Mass/Vol] 32.7 g/dL 32-36 [facility] Mean platelet volume determi nationOrdered By: Ady Lizarraga on 01-25-2025 Platelet mean volume (Bld) [Entitic vol] 9.3 fL 6.2-12.0 [facility] Monocyte percentageOrdered B y: Ady Lizarraga on 01-25-2025 Monocytes/100 WBC (Bld) 12.9 % High 0-10 [facility] Neutrophil percentageOrdered By: Ady Lizarraga on 01-25-2025 Neutrophils/100 WBC (Bld) 64.9 % 47-70 [facility] Nucleated red blood cell per centageOrdered By: Ady Lizarraga on 01-25-2025 Nucleated RBC/100 WBC (Bld) [Ratio] 0 % 0-5 [facility] Partial Thromboplast Timeon 01-25-2025 aPTT Coag (Bld) [Time] 36.5 s High 24.1-36.2 [facility] Comment on above: Performed By: #### L 300.4310, L300.3900, L100.0100, L501.4021, L500.2500 ####[facility] [address] [place], [address] Platelet countOrdered By: Archie Lizarraga on 01-25-2025 Platelets (Bld) [#/Vol] 151 10*3/uL 150-450 [facility] Potassium measurement (mass/ volume)Ordered By: Ady Lizarraga on 01-25-2025 Potassium (Unsp spec) [Mass/Vol] 4.0 mmol/L 3.3-5.1 [facility] Prothrombin Time w/INRon INR Coag (PPP) [Relative time] 2.7 {INR} Normal [facility] Comment on above: Performed By: #### L 300.4310, L300.3900, L100.0100, L501.4021, L500.2500 ####[facility] [address] [place], [address] PT Coag (PPP) [Time] 29.1 s High 11.7-14.9 [facility] Comment on above: Performed By: #### L 300.4310, L300.3900, L100.0100, L501.4021, L500.2500 ####[facility] [address] [place], [place], [id number] Prothrombin timeOrdered By: Ady Lizarraga on 01-25-2025 PT Coag (PPP) [Time] 29.1 s High 11.7-14.9 [facility] RBC Auto (Bld) [#/Vol]Ordere d By: Ady Lizarraga on 01-25-2025 RBC (Bld) [#/Vol] 4.43 10*6/uL 4.2-5.4 [facility] STROKE Brain/Head without Co nton 01-25-2025 STROKE Brain/Head without Cont Normal [facility] STROKE CTA Head AND Neck W/C onon 01-25-2025 STROKE CTA Head AND Neck W/Con Normal [facility] Serum creatinine measurement (mass/volume)Ordered By: Ady Lizarraga on 01-25-2025 Creatinine [Mass/Vol] 1.59 mg/dL High 0.70-1.20 [facility] Serum glucose measurement (m ass/volume)Ordered By: Ady Lizarraga on 05-15-2025 Glucose [Mass/Vol] 132 mg/dL High 70-99 [facility] Serum or plasma calcium radha urement (mass/volume)Ordered By: Ady Lizarraga on 01-25-2025 Calcium [Mass/Vol] 9.4 mg/dL 7.6-11.0 [facility] Serum or plasma urea nitroge n measurement (mass/volume)Ordered By: Ady Lizarraga on 01-25-2025 Urea nitrogen [Mass/Vol] 31 mg/dL High 4-19 [facility] Sodium levelOrdered By: Ady Lizarraga on 01-25-2025 Sodium [Moles/Vol] 138 mmol/L 133-145 [facility] Troponin T.cardiac [Mass/vol ume] in Serum or Plasma by High sensitivity methodOrdered By: Ady Lizarraga on 01-25-2025 Troponin T.cardiac High sensitivity method [Mass/Vol] 122 ng/L High <14 [facility] Comment on above: Critical Result(s) Binta TOVAR at: 1804 by: JESSE Results read back by same. Troponin T.cardiac High sensitivity method [Mass/Vol] 121 ng/L High <14 [facility] Comment on above: Critical Result(s) Binta ANDERSON at: 1523 by: JESSE Results read back by same. Troponin T.cardiac High sensitivity method [Mass/Vol] 135 ng/L High <14 [facility] Comment on above: Critical Result(s) Binta dalton at 1302: by: HEIDI DAILYSSM [facility] H[facility]ITALJORGE ALBERTO. Results read back by same. White blood cell (WBC) count Ordered By: Ady Lizarraga on 01-25-2025 WBC (Bld) [#/Vol] 5.3 10*3/uL 4.4-11.0 [facility] Pulmonary Visit Reporton Pulmonary Visit Report Normal [facility] Cardiology Visit Reporton Cardiology Visit Report Normal [facility] Pacemaker Checkon 12-12-2024 Pacemaker Check Normal [facility] Absolute lymphocyte countOrd ered By: Kong Pardo on 12-07-2024 Lymphocytes Auto (Unsp spec) [#/Vol] 1.35 10*3/uL 0.83-4.51 [facility] Absolute neutrophil countOrd ered By: Kong Pardo on 12-07-2024 Neutrophils (Bld) [#/Vol] 3.6 10*3/uL 2.0-7.7 [facility] Anion gap in Serum or Plasma Ordered By: Kong Pardo on 12-07-2024 Anion gap [Moles/Vol] 18 mmol/L High 5-15 [facility] Automated lymphocyte count a s percentage of total leukocytesOrdered By: Kong Pardo on 12-07-2024 Lymphocytes/100 WBC Auto (Unsp spec) 22.7 % 19- [facility] BUN/creatinine ratioOrdered By: Kong Pardo on 12-07-2024 Urea nitrogen/Creatinine [Mass ratio] 17.5 mg/mg 10-20 [facility] Basophil percentageOrdered B y: Kong Pardo on 12-07-2024 Basophils/100 WBC (Bld) 1.0 % 0-1 [facility] Bilirubin, totalOrdered By: Kong Pardo on 12-07-2024 Bilirubin [Mass/Vol] 1.72 mg/dL High 0.00-1.30 [facility] CBC W/Diff, Automatedon 11-12 Absolute Lymph 1.35 X10 3/uL Normal 0.83-4.51 [facility] Comment on above: Performed By: #### L 500.4050, L501.5200, L501.9520, L506.0400, L100.0100 ####[facility] [address] [place], [address] Absolute Neut 3.6 X10 3/uL Normal 2.0-7.7 [facility] Comment on above: Performed By: #### L 500.4050, L501.5200, L501.9520, L506.0400, L100.0100 ####[facility] [address] [place], [address] Basophils/100 WBC (Bld) 1.0 % Normal 0-1 [facility] Comment on above: Performed By: #### L 500.4050, L501.5200, L501.9520, L506.0400, L100.0100 ####[facility] [address] [place], [address] Eosinophils/100 WBC (Bld) 3.5 % Normal 0-5 [facility] Comment on above: Performed By: #### L 500.4050, L501.5200, L501.9520, L506.0400, L100.0100 ####[facility] [address] [place], [address] Erythrocyte distribution width (RBC) [Ratio] 15.5 % High 11.6-14.6 [facility] Comment on above: Performed By: #### L 500.4050, L501.5200, L501.9520, L506.0400, L100.0100 ####[facility] [address] [place], [address] Hematocrit (Bld) [Volume fraction] 42.3 % Normal 37-47 [facility] Comment on above: Performed By: #### L 500.4050, L501.5200, L501.9520, L506.0400, L100.0100 ####[facility] [address] [place], [address] Hemoglobin (Bld) [Mass/Vol] 13.7 g/dL Normal 12.0-15.0 [facility] Comment on above: Performed By: #### L 500.4050, L501.5200, L501.9520, L506.0400, L100.0100 ####[facility] [address] [place], [address] IG% 0.300 Normal 0.0-0.9 [facility] Comment on above: Result Comment: IG% - Immature Granulocytes (promyelocytes, myelocytes andmetamyelocytes) > 1% indicates that a LEFT SHIFT is Present. Performed By: #### L 500.4050, L501.5200, L501.9520, L506.0400, L100.0100 ####[facility] [address] [place], [address] Lymphocytes/100 WBC (Bld) 22.7 % Normal 19-41 [facility] Comment on above: Performed By: #### L 500.4050, L501.5200, L501.9520, L506.0400, L100.0100 ####[facility] [address] [place], [address] MCH (RBC) [Entitic mass] 29.8 pg Normal 27.0-32.0 [facility] Comment on above: Performed By: #### L 500.4050, L501.5200, L501.9520, L506.0400, L100.0100 ####[facility] [address] [place], [address] MCHC (RBC) [Mass/Vol] 32.4 g/dL Normal 32-36 [facility] Comment on above: Performed By: #### L 500.4050, L501.5200, L501.9520, L506.0400, L100.0100 ####[facility] [address] [place], [address] MCV (RBC) [Entitic vol] 92.0 fL Normal 81-99 [facility] Comment on above: Performed By: #### L 500.4050, L501.5200, L501.9520, L506.0400, L100.0100 ####[facility] [address] [place], [address] Monocytes/100 WBC (Bld) 11.8 % High 0-10 [facility] Comment on above: Performed By: #### L 500.4050, L501.5200, L501.9520, L506.0400, L100.0100 ####[facility] [address] [place], [address] Neutrophils/100 WBC (Bld) 60.7 % Normal 47-70 [facility] Comment on above: Performed By: #### L 500.4050, L501.5200, L501.9520, L506.0400, L100.0100 ####[facility] [address] [place], [address] Nucleated RBC (Bld) [#/Vol] 0 10*3/uL Normal 0-5 [facility] Comment on above: Performed By: #### L 500.4050, L501.5200, L501.9520, L506.0400, L100.0100 ####[facility] [address] [place], [address] Platelet mean volume (Bld) [Entitic vol] 9.8 fL Normal 6.2-12.0 [facility] Comment on above: Performed By: #### L 500.4050, L501.5200, L501.9520, L506.0400, L100.0100 ####[facility] [address] [place], [address] Platelets (Bld) [#/Vol] 168 10*3/uL Normal 150-450 [facility] Comment on above: Performed By: #### L 500.4050, L501.5200, L501.9520, L506.0400, L100.0100 ####[facility] [address] [place], [address] RBC (Bld) [#/Vol] 4.60 10*6/uL Normal 4.2-5.4 [facility] Comment on above: Performed By: #### L 500.4050, L501.5200, L501.9520, L506.0400, L100.0100 ####[facility] [address] [place], [address] RDW SD 51.8 fl High 35.1-43.9 [facility] Comment on above: Performed By: #### L 500.4050, L501.5200, L501.9520, L506.0400, L100.0100 ####[facility] [address] [place], [address] WBC (Bld) [#/Vol] 5.9 10*3/uL Normal 4.4-11.0 [facility] Comment on above: Performed By: #### L 500.4050, L501.5200, L501.9520, L506.0400, L100.0100 ####[facility] [address] [place], [address] Carbon dioxide, total [Moles /volume] in Central venous bloodOrdered By: Kong Pardo on 12-07-2024 CO2 [Moles/Vol] 18.1 mmol/L Low 21.0-32.0 [facility] Chloride assayOrdered By: Nisreen Pardo on 12-07-2024 Chloride [Moles/Vol] 102 mmol/L 98-108 [facility] Comprehensive Metabolic Prof ilon 12-07-2024 Albumin [Mass/Vol] 3.7 g/dL Normal 3.4-4.8 [facility] Comment on above: Performed By: #### L 500.4050, L501.5200, L501.9520, L506.0400, L100.0100 ####[facility] [address] [place], [address] Albumin/Globulin [Mass ratio] 1.6 {ratio} Normal 0.9-2.4 [facility] Comment on above: Performed By: #### L 500.4050, L501.5200, L501.9520, L506.0400, L100.0100 ####[facility] [address] [place], [address] ALK PHOS 62 U/L Normal 35-104 [facility] Comment on above: Performed By: #### L 500.4050, L501.5200, L501.9520, L506.0400, L100.0100 ####[facility] [address] [place], [address] ALT [Catalytic activity/Vol] 20 U/L Normal <=34 [facility] Comment on above: Performed By: #### L 500.4050, L501.5200, L501.9520, L506.0400, L100.0100 ####[facility] [address] [place], [address] AST [Catalytic activity/Vol] 35 U/L High <=31 [facility] Comment on above: Performed By: #### L 500.4050, L501.5200, L501.9520, L506.0400, L100.0100 ####[facility] [address] [place], [address] Bilirubin [Mass/Vol] 1.72 mg/dL High 0.00-1.30 [facility] Comment on above: Performed By: #### L 500.4050, L501.5200, L501.9520, L506.0400, L100.0100 ####[facility] [address] [place], [address] BUN/CRE 17.5 RATIO Normal 10-20 [facility] Comment on above: Performed By: #### L 500.4050, L501.5200, L501.9520, L506.0400, L100.0100 ####[facility] [address] [place], [address] Calcium [Mass/Vol] 9.1 mg/dL Normal 7.6-11.0 [facility] Comment on above: Performed By: #### L 500.4050, L501.5200, L501.9520, L506.0400, L100.0100 ####[facility] [address] [place], [address] Chloride [Moles/Vol] 102 mmol/L Normal 98-108 [facility] Comment on above: Performed By: #### L 500.4050, L501.5200, L501.9520, L506.0400, L100.0100 ####[facility] [address] [place], [address] CO2 [Moles/Vol] 18.1 mmol/L Low 21.0-32.0 [facility] Comment on above: Performed By: #### L 500.4050, L501.5200, L501.9520, L506.0400, L100.0100 ####[facility] [address] [place], [address] Creatinine [Mass/Vol] 1.87 mg/dL High 0.70-1.20 [facility] Comment on above: Performed By: #### L 500.4050, L501.5200, L501.9520, L506.0400, L100.0100 ####[facility] [address] [place], [address] GAP 18 High 5-15 [facility] Comment on above: Performed By: #### L 500.4050, L501.5200, L501.9520, L506.0400, L100.0100 ####[facility] [address] [place], [address] GFR/1.73 sq M.predicted among non-blacks MDRD (S/P/Bld) [Vol rate/Area] 29 mL/min/{1.73_m2} Low >60 [facility] Comment on above: Result Comment: mL/m in/1.73m2 CKD-EPI Creatinine Equation (2020) Performed By: #### L 500.4050, L501.5200, L501.9520, L506.0400, L100.0100 ####[facility] [address] [place], [address] Globulin (S) [Mass/Vol] 2.4 g/dL Normal 2.2-4.2 [facility] Comment on above: Performed By: #### L 500.4050, L501.5200, L501.9520, L506.0400, L100.0100 ####[facility] [address] [place], [address] Glucose [Mass/Vol] 90 mg/dL Normal 70-99 [facility] Comment on above: Performed By: #### L 500.4050, L501.5200, L501.9520, L506.0400, L100.0100 ####[facility] [address] [place], [address] Potassium [Moles/Vol] 4.5 mmol/L Normal 3.3-5.1 [facility] Comment on above: Performed By: #### L 500.4050, L501.5200, L501.9520, L506.0400, L100.0100 ####[facility] [address] [place], [address] Sodium [Moles/Vol] 138 mmol/L Normal 133-145 [facility] Comment on above: Performed By: #### L 500.4050, L501.5200, L501.9520, L506.0400, L100.0100 ####[facility] [address] [place], [address] T PROT 6.1 g/dL Normal 5.9-8.4 [facility] Comment on above: Performed By: #### L 500.4050, L501.5200, L501.9520, L506.0400, L100.0100 ####[facility] [address] [place], [address] Urea nitrogen [Mass/Vol] 33 mg/dL High 4-19 [facility] Comment on above: Performed By: #### L 500.4050, L501.5200, L501.9520, L506.0400, L100.0100 ####[facility] [address] [place], [address] Eosinophil percentageOrdered By: Kong Pardo on 12-07-2024 Eosinophils/100 WBC (Bld) 3.5 % 0-5 [facility] Erythrocyte distribution wid th ratioOrdered By: Kong Pardo on 12-07-2024 Erythrocyte distribution width (RBC) [Ratio] 15.5 % High 11.6-14.6 [facility] Erythrocyte distribution wid th standard deviationOrdered By: Kong Pardo on 12-07-2024 Erythrocyte distribution width (RBC) [Entitic vol] 51.8 fL High 35.1-43.9 [facility] Erythrocyte distribution width (RBC) [Ratio] 51.8 fl High 35.1-43.9 [facility] GFR/1.73 sq M.predicted jaime g non-blacks MDRD (S/P/Bld) [Vol rate/Area]Ordered By: Kong Pardo on 12-07-2024 Estimated GFR (MDRD) Non-Af Amer 29 Low >60 [facility] Comment on above: mL/min/1.73m2 CKD-EP I Creatinine Equation (2020) Glomerular filtration rate ( GFR) estimation/1.73 sq m using serum, plasma, or whole bOrdered By: Kong Pardo on 12-07-2024 GFR/1.73 sq M.predicted among non-blacks MDRD (S/P/Bld) [Vol rate/Area] 29 mL/min/{1.73_m2} Low >60 [facility] Comment on above: mL/min/1.73m2 CKD-EP I Creatinine Equation (2020) Hematocrit Auto (Bld) [Volum e fraction]Ordered By: Kong Pardo on 12-07-2024 Hematocrit (Bld) [Volume fraction] 42.3 % 37-47 [facility] Hemoglobin measurementOrdere d By: Kong Pardo on 12-07-2024 Hemoglobin (Bld) [Mass/Vol] 13.7 g/dL 12.0-15.0 [facility] Immature granulocytes/100 WB C Auto (Bld)Ordered By: Kong Pardo on 12-07-2024 Immature granulocytes/100 WBC (Bld) 0.300 % 0.0-0.9 [facility] Comment on above: IG% - Immature Granu locytes (promyelocytes, myelocytes and metamyelocytes) > 1% indicates that a LEFT SHIFT is Present. Laboratory - Chemistry and C hemistry - challengeOrdered By: Kong Pardo on 12-07-2024 AST [Catalytic activity/Vol] 35 U/L High <32 [facility] Lymphocytes Auto (Unsp spec) [#/Vol]Ordered By: Kong Pardo on 12-07-2024 Lymphocytes (Bld) [#/Vol] 1.35 10*3/uL 0.83-4.51 [facility] Lymphocytes/100 WBC Auto (Un sp spec)Ordered By: Kong Pardo on 12-07-2024 Lymphocytes/100 WBC (Bld) 22.7 % 19-41 [facility] MCV (mean corpuscular volume ) determinationOrdered By: Kong Pardo on 12-07-2024 MCV (RBC) [Entitic vol] 92.0 fL 81-99 [facility] Magnesiumon 12-07-2024 Magnesium [Mass/Vol] 2.9 mg/dL High 1.5-2.2 [facility] Comment on above: Performed By: #### L 500.4050, L501.5200, L501.9520, L506.0400, L100.0100 ####[facility] [address] [place], [address] Magnesium (Unsp spec) [Mass/ Vol]Ordered By: Kong Pardo on 12-07-2024 Magnesium [Mass/Vol] 2.9 mg/dL High 1.5-2.2 [facility] Magnesium measurement (mass/ volume)Ordered By: Kong Pardo on 12-07-2024 Magnesium (Unsp spec) [Mass/Vol] 2.9 mg/dL High 1.5-2.2 [facility] Mean corpuscular hemoglobin (MCH) determinationOrdered By: Kong Pardo on 12-07-2024 MCH (RBC) [Entitic mass] 29.8 pg 27.0-32.0 [facility] Mean corpuscular hemoglobin concentration (MCHC) determinationOrdered By: Kong Pardo on 12-07-2024 MCHC (RBC) [Mass/Vol] 32.4 g/dL 32-36 [facility] Mean platelet volume determi nationOrdered By: Kong Pardo on 12-07-2024 Platelet mean volume (Bld) [Entitic vol] 9.8 fL 6.2-12.0 [facility] Monocyte percentageOrdered B y: Kong Pardo on 12-07-2024 Monocytes/100 WBC (Bld) 11.8 % High 0-10 [facility] Neutrophil percentageOrdered By: Kong Pardo on 12-07-2024 Neutrophils/100 WBC (Bld) 60.7 % 47-70 [facility] Nucleated red blood cell per centageOrdered By: Kong Pardo on 12-07-2024 Nucleated RBC/100 WBC (Bld) [Ratio] 0 % 0-5 [facility] Platelet countOrdered By: Nisreen Pardo on 12-07-2024 Platelets (Bld) [#/Vol] 168 10*3/uL 150-450 [facility] Potassium (Unsp spec) [Mass/ Vol]Ordered By: Kong Pardo on 12-07-2024 Potassium [Moles/Vol] 4.5 mmol/L 3.3-5.1 [facility] Potassium measurement (mass/ volume)Ordered By: Kong Pardo on 12-07-2024 Potassium (Unsp spec) [Mass/Vol] 4.5 mmol/L 3.3-5.1 [facility] RBC Auto (Bld) [#/Vol]Ordere d By: Kong Pardo on 12-07-2024 RBC (Bld) [#/Vol] 4.60 10*6/uL 4.2-5.4 [facility] Serum creatinine measurement (mass/volume)Ordered By: Kong Pardo on 12-07-2024 Creatinine [Mass/Vol] 1.87 mg/dL High 0.70-1.20 [facility] Serum globulin measurementOr dered By: Kong Pardo on 12-07-2024 Globulin (S) [Mass/Vol] 2.4 g/dL 2.2-4.2 [facility] Serum glucose measurement (m ass/volume)Ordered By: Kong Pardo on 03-27-2025 Glucose [Mass/Vol] 90 mg/dL 70-99 [facility] Serum or plasma alanine prieto otransferase (ALT) measurementOrdered By: Kong Pardo on 12-07-2024 ALT [Catalytic activity/Vol] 20 U/L <35 [facility] Serum or plasma albumin radha urement (mass/volume)Ordered By: Kong Pardo on 12-07-2024 Albumin [Mass/Vol] 3.7 g/dL 3.4-4.8 [facility] Serum or plasma albumin/glob ulin mass ratioOrdered By: Kong Pardo on 12-07-2024 Albumin/Globulin [Mass ratio] 1.6 {ratio} 0.9-2.4 [facility] Serum or plasma alkaline travis sphatase measurementOrdered By: Kong Pardo on 12-07-2024 ALP [Catalytic activity/Vol] 62 U/L 35-104 [facility] Serum or plasma calcium radha urement (mass/volume)Ordered By: Kong Pardo on 12-07-2024 Calcium [Mass/Vol] 9.1 mg/dL 7.6-11.0 [facility] Serum or plasma urea nitroge n measurement (mass/volume)Ordered By: Kong Pardo on 12-07-2024 Urea nitrogen [Mass/Vol] 33 mg/dL High 4-19 [facility] Sodium levelOrdered By: Kong Pardo on 12-07-2024 Sodium [Moles/Vol] 138 mmol/L 133-145 [facility] T4 Free Directon 12-07-2024 T4 FREE DIRECT 1.50 ng/dL High 0.76-1.46 [facility] Comment on above: Performed By: #### L 500.4050, L501.5200, L501.9520, L506.0400, L100.0100 ####[facility] [address] [place] [place], [address] T4 freeOrdered By: Kong Pardo on 12-07-2024 Free T4 [Mass/Vol] 1.50 ng/dL High 0.76-1.46 [facility] TSH DL <= 0.005 mIU/L QnOrde red By: Kong Pardo on 12-07-2024 Thyroid Stimulating Hormone (TSH) 0.857 uIU/mL 0.300-4.200 [facility] TSH Qn 0.857 uIU/mL 0.300-4.200 [facility] Thyroid Stim Hormone (TSH)on 12-07-2024 TSH 0.857 uIU/mL Normal 0.300-4.200 [facility] Comment on above: Performed By: #### L 500.4050, L501.5200, L501.9520, L506.0400, L100.0100 ####[facility] [address] [place], [address] Total proteinOrdered By: Ashutosh Pardo on 12-07-2024 Protein [Mass/Vol] 6.1 g/dL 5.9-8.4 [facility] White blood cell (WBC) count Ordered By: Kong Pardo on 12-07-2024 WBC (Bld) [#/Vol] 5.9 10*3/uL 4.4-11.0 [facility] No Panel Informationon 10-30 INR International Normalized Ratio 4.0 High [facility] 97-DA-Qxhglxf DOrdered By: Marcelino Barakat on 10-19-2024 Vitamin D 25-Hydroxy 38.8 ng/mL [facility] Comment on above: Vitamin D 25(OH) Sta tus Range Deficiency <20 ng/mL (50nmol/L) Insufficiency 20 - 30 ng/mL (50 - 75 nmol/L) Sufficiency 30 - 100 ng/mL (75 - 250 nmol/L) Toxicity >100 ng/mL (>250 nmol/L) Hemoglobin A1con 10-19-2024 HbA1c (Bld) [Mass fraction] 4.4 % Normal 3.8-5.6 [facility] Comment on above: Result Comment: Norm al < 5.7 % Prediabetic 5.7 - 6.4 % Diabetic >or= 6.5 % Please note range changes. Performed By: #### L 506.1000, L501.9985 ####[facility] [address] [place], [place], [id number] Hemoglobin A1c percentageOrd ered By: Roseline Barakat on 10-19-2024 HbA1c (Bld) [Mass fraction] 4.4 % 3.8-5.6 [facility] Comment on above: Normal < 5.7 % Predi abetic 5.7 - 6.4 % Diabetic >or= 6.5 % Please note range changes. Vitamin D,25 Hydroxyon 10-19 Vitamin D 25-OH 38.8 ng/mL Normal [facility] Comment on above: Result Comment: Miryam min D 25(OH) Status Range Deficiency <20 ng/mL (50nmol/L) Insufficiency 20 - 30 ng/mL (50 - 75 nmol/L) Sufficiency 30 - 100 ng/mL (75 - 250 nmol/L) Toxicity >100 ng/mL (>250 nmol/L) Performed By: #### L 506.1000, L501.9985 ####[facility] [address] [place], [address] Thyroidon 09-14-2024 Thyroid Normal [facility] Endocrinology Visit Reporton 08-07-2024 Endocrinology Visit Report Normal [facility] Free T3on 07-27-2024 Free T3 [Mass/Vol] 2.8 pg/mL Normal 2.18-3.98 [facility] Comment on above: Performed By: #### L 501.9520, L506.0400, L501.50164 ####[facility] [address] [place], [address] T4 Free Directon 07-27-2024 T4 FREE DIRECT 1.29 ng/dL Normal 0.76-1.46 [facility] Comment on above: Performed By: #### L 501.9520, L506.0400, L501.04174 ####[facility] [address] [place], [address] Thyroid Stim Hormone (TSH)on 07-27-2024 TSH 0.775 uIU/mL Normal 0.358-3.740 [facility] Comment on above: Performed By: #### L 501.9520, L506.0400, L501.41133 ####[facility] [address] [place], [address] Kidney and Bladderon 024 Kidney and Bladder Normal [facility] Internal Medicine Office Vis iton 05-23-2024 Internal Medicine Office Visit Normal [facility] CBC-Complete Blood Cnt No Di ffon 05-16-2024 Erythrocyte distribution width (RBC) [Ratio] 15.8 % High 11.6-14.6 [facility] Comment on above: Performed By: #### L 500.3600, L100.0500, L501.0900 ####[facility] [address] [place], [address] Hematocrit (Bld) [Volume fraction] 39.2 % Normal 37-47 [facility] Comment on above: Performed By: #### L 500.3600, L100.0500, L501.0900 ####[facility] [address] [place], [address] Hemoglobin (Bld) [Mass/Vol] 12.5 g/dL Normal 12.0-15.0 [facility] Comment on above: Performed By: #### L 500.3600, L100.0500, L501.0900 ####[facility] [address] [place], [address] MCH (RBC) [Entitic mass] 29.0 pg Normal 27.0-32.0 [facility] Comment on above: Performed By: #### L 500.3600, L100.0500, L501.0900 ####[facility] [address] [place], [address] MCHC (RBC) [Mass/Vol] 31.9 g/dL Low 32-36 [facility] Comment on above: Performed By: #### L 500.3600, L100.0500, L501.0900 ####[facility] [address] [place], [address] MCV (RBC) [Entitic vol] 91.0 fL Normal 81-99 [facility] Comment on above: Performed By: #### L 500.3600, L100.0500, L501.0900 ####[facility] [address] [place], [address] Platelet mean volume (Bld) [Entitic vol] 10.4 fL Normal 6.2-12.0 [facility] Comment on above: Performed By: #### L 500.3600, L100.0500, L501.0900 ####[facility] [address] [place], [address] Platelets (Bld) [#/Vol] 165 10*3/uL Normal 150-450 [facility] Comment on above: Performed By: #### L 500.3600, L100.0500, L501.0900 ####[facility] [address] [place], [address] RBC (Bld) [#/Vol] 4.31 10*6/uL Normal 4.2-5.4 [facility] Comment on above: Performed By: #### L 500.3600, L100.0500, L501.0900 ####[facility] [address] [place], [address] RDW SD 53.3 fl High 35.1-43.9 [facility] Comment on above: Performed By: #### L 500.3600, L100.0500, L501.0900 ####[facility] [address] [place], [address] WBC (Bld) [#/Vol] 6.2 10*3/uL Normal 4.4-11.0 [facility] Comment on above: Performed By: #### L 500.3600, L100.0500, L501.0900 ####[facility] [address] [place], [address] Protein+Creatinine Ratio,Uri neon 05-16-2024 PROT:CRE RATIO 132 mg/g CRE Normal 0-200 [facility] Comment on above: Performed By: #### L 500.3600, L100.0500, L501.0900 ####[facility] [address] [place], [address] Protein (U) [Mass/Vol] 10.9 mg/dL Normal <11.9 [facility] Comment on above: Performed By: #### L 500.3600, L100.0500, L501.0900 ####[facility] [address] [place], [address] UR CREAT 82.60 mg/dL Normal NO RANGE EST. [facility] Comment on above: Performed By: #### L 500.3600, L100.0500, L501.0900 ####[facility] [address] [place], [address] Renal Profileon 05-16-2024 Albumin [Mass/Vol] 3.5 g/dL Normal 3.2-5.0 [facility] Comment on above: Performed By: #### L 500.3600, L100.0500, L501.0900 ####[facility] [address] [place], [address] BUN/CRE 25.4 RATIO High 10-20 [facility] Comment on above: Performed By: #### L 500.3600, L100.0500, L501.0900 ####[facility] [address] [place], [address] CA,Total 9.0 mg/dL Normal 8.5-10.1 [facility] Comment on above: Performed By: #### L 500.3600, L100.0500, L501.0900 ####[facility] [address] [place], [address] Chloride [Moles/Vol] 104 mmol/L Normal 98-107 [facility] Comment on above: Performed By: #### L 500.3600, L100.0500, L501.0900 ####[facility] [address] [place], [address] CO2 [Moles/Vol] 26.0 mmol/L Normal 21.0-32.0 [facility] Comment on above: Performed By: #### L 500.3600, L100.0500, L501.0900 ####[facility] [address] [place], [address] Creatinine [Mass/Vol] 1.81 mg/dL High 0.55-1.02 [facility] Comment on above: Result Comment: The validity of the calculated GFR GFRAA in patients over70 years has not been determined. Clinical correlation isessential. Performed By: #### L 500.3600, L100.0500, L501.0900 ####[facility] [address] [place], [address] EST GFR - AA 36 mL/min Low >60 [facility] Comment on above: Result Comment: Afri can Eritrean GFR Calc Performed By: #### L 500.3600, L100.0500, L501.0900 ####[facility] [address] [place], [address] GFR/1.73 sq M.predicted among non-blacks MDRD (S/P/Bld) [Vol rate/Area] 29 mL/min/{1.73_m2} Low >60 [facility] Comment on above: Result Comment: Non- GFR Calc Performed By: #### L 500.3600, L100.0500, L501.0900 ####[facility] [address] [place], [address] Glucose [Mass/Vol] 111 mg/dL High 74-106 [facility] Comment on above: Result Comment: Fast ing Glucose result from 100 to 125 mg/dLsuggests IMPAIRED HOMEOSTASIS per A.D.A. criteria. Performed By: #### L 500.3600, L100.0500, L501.0900 ####[facility] [address] [place], [address] Phosphate [Mass/Vol] 3.0 mg/dL Normal 2.5-4.9 [facility] Comment on above: Performed By: #### L 500.3600, L100.0500, L501.0900 ####[facility] [address] [place], [address] Potassium [Moles/Vol] 3.5 mmol/L Normal 3.5-5.1 [facility] Comment on above: Result Comment: Slig ht Hemolysis, Result may be falsely increased. Performed By: #### L 500.3600, L100.0500, L501.0900 ####[facility] [address] [place], [address] Sodium [Moles/Vol] 137 mmol/L Normal 136-145 [facility] Comment on above: Performed By: #### L 500.3600, L100.0500, L501.0900 ####[facility] [address] [place], [address] Urea nitrogen [Mass/Vol] 46 mg/dL High 7-18 [facility] Comment on above: Performed By: #### L 500.3600, L100.0500, L501.0900 ####[facility] [address] [place], [address] Pulmonary Visit Reporton Pulmonary Visit Report Normal [facility] Cardiology Visit Reporton Cardiology Visit Report Normal [facility] Inital Evaluation (1) - PTon 04-10-2024 Inital Evaluation (1) - PT Normal [facility] Basophil percentageOrdered B y: Jeanette Alexis on 01-17-2024 Chloride [Moles/Vol] 106 mmol/L 98-107 [facility] Glucose [Mass/Vol] 145 mg/dL 74-106 [facility] Comment on above: Fasting Glucose resu lt greater than or equal to 126 mg/dL suggests DIABETES MELLITUS per A.D.A. criteria. Potassium [Moles/Vol] 3.7 mmol/L 3.5-5.1 [facility] Sodium [Moles/Vol] 139 mmol/L 136-145 [facility] Basophil percentageOrdered B y: Kong Pardo on 01-17-2024 Bilirubin [Mass/Vol] 1.30 mg/dL 0.20-1.00 [facility] Comment on above: For patients on eltr ombopag therapy, use of Dimension [place] TBIL is not recommended. Cholesterol [Mass/Vol] 112 mg/dL <200 [facility] Comment on above: <200 mg/dL Desirable 200-240 mg/dL Borderline >240 mg/dL High Risk Protein [Mass/Vol] 6.7 g/dL 6.4-8.2 [facility] Triglyceride [Mass/Vol] 88 mg/dL <199 [facility] Comment on above: The drugs N-Acetylcy steine and Metamizole may falsely depress this assay.Serum Triglycerides Reference Interval Normal <150 mg/dL Borderline high 150 - 199 mg/dL High 200 - 499 mg/dL Very High > or = 500 mg/dL Direct bilirubinOrdered By: Kong Pardo on 01-17-2024 Bilirubin.direct [Mass/Vol] 0.46 mg/dL 0.00-0.30 [facility] Laboratory - Chemistry and C hemistry - challengeOrdered By: Jeanette Alexis on 01-17-2024 CO2 [Moles/Vol] 27.0 mmol/L 21.0-32.0 [facility] Urea nitrogen/Creatinine [Mass ratio] 26.6 mg/mg 10-20 [facility] Laboratory - Chemistry and C hemistry - challengeOrdered By: Kong Pardo on 01-17-2024 ALP [Catalytic activity/Vol] 80 U/L 45-117 [facility] ALT [Catalytic activity/Vol] 29 U/L 13-56 [facility] Cholesterol in HDL [Mass/Vol] 53 mg/dL >40 [facility] Comment on above: The drugs N-Acetylcy steine and Metamizole may falsely depress this assay. Reference Range HDL <40 mg/dL Low HDL Cholesterol HDL >or= 60 mg/dL High HDL Cholesterol Cholesterol in LDL [Mass/Vol] 41 mg/dL 0-130 [facility] Globulin (S) [Mass/Vol] 3.2 g/dL 2.2-4.2 [facility] No Panel InformationOrdered By: Jeanette Alexis on 01-17-2024 Estimated GFR (MDRD) Amer 38 mL/min >60 [facility] Comment on above: GFR Calc Estimated GFR (MDRD) Non-Af Amer 31 mL/min >60 [facility] Comment on above: Non- GFR Calc No Panel InformationOrdered By: Kong Pardo on 01-17-2024 VLDL Cholesterol 18 mg/dL 5-40 [facility] Serum or plasma calcium radha urement (mass/volume)Ordered By: Jeanette Alexis on 01-17-2024 Calcium [Mass/Vol] 9.2 mg/dL 8.5-10.1 [facility] Serum or plasma creatinine m easurement (mass/volume)Ordered By: Jeanette Alexis on 01-17-2024 Creatinine [Mass/Vol] 1.73 mg/dL 0.55-1.02 [facility] Comment on above: The validity of the calculated GFR & GFRAA in patients over 70 years has not been determined. Clinical correlation is essential. Serum or plasma urea nitroge n measurement (mass/volume)Ordered By: Jeanette Alexis on 01-17-2024 Urea nitrogen [Mass/Vol] 46 mg/dL 7-18 [facility] Thin prep Papanicolaou smear with manual screeningOrdered By: Jeanette Alexis on 01-17-2024 Thin prep Papanicolaou smear with manual screening 6 5-15 [facility] Thin prep Papanicolaou smear with manual screeningOrdered By: Kong Pardo on 01-17-2024 Thin prep Papanicolaou smear with manual screening 3.5 g/dL 3.2-5.0 [facility] Thin prep Papanicolaou smear with manual screening 30 U/L 15-37 [facility] No Panel Informationon 01-10 INR International Normalized Ratio 3.5 [facility] Basophil percentageOrdered B y: Jeanette Alexis on 11-25-2023 Chloride [Moles/Vol] 104 mmol/L 98-107 [facility] Glucose [Mass/Vol] 83 mg/dL 74-106 [facility] Potassium [Moles/Vol] 3.9 mmol/L 3.5-5.1 [facility] Sodium [Moles/Vol] 139 mmol/L 136-145 [facility] Laboratory - Chemistry and C hemistry - challengeOrdered By: Jeanette Alexis on 11-25-2023 CO2 [Moles/Vol] 27.0 mmol/L 21.0-32.0 [facility] Natriuretic peptide B (Bld) [Mass/Vol] 503.7 pg/mL 0-100 [facility] Urea nitrogen/Creatinine [Mass ratio] 18.0 mg/mg 10-20 [facility] No Panel InformationOrdered By: Jeanette Alexis on 11-25-2023 Estimated GFR (MDRD) Amer 34 mL/min >60 [facility] Comment on above: GFR Calc Estimated GFR (MDRD) Non-Af Amer 28 mL/min >60 [facility] Comment on above: Non- GFR Calc No Panel InformationOrdered By: Enrrique Velez on 11-25-2023 Free Triiodothyronine (T3) pg/dL 2.6 pg/mL 2.18-3.98 [facility] Serum or plasma calcium radha urement (mass/volume)Ordered By: Jeanette Alexis on 11-25-2023 Calcium [Mass/Vol] 9.6 mg/dL 8.5-10.1 [facility] Serum or plasma creatinine m easurement (mass/volume)Ordered By: Jeanette Alexis on 11-25-2023 Creatinine [Mass/Vol] 1.89 mg/dL 0.55-1.02 [facility] Comment on above: The validity of the calculated GFR & GFRAA in patients over 70 years has not been determined. Clinical correlation is essential. Serum or plasma thyroid stim ulating hormone (TSH) measurement (units/volume)Ordered By: Enrrique Velez on 11-25-2023 TSH Qn 1.43 uIU/mL 0.358-3.74 [facility] Serum or plasma urea nitroge n measurement (mass/volume)Ordered By: Jeanette Alexis on 11-25-2023 Urea nitrogen [Mass/Vol] 34 mg/dL 7-18 [facility] Thin prep Papanicolaou smear with manual screeningOrdered By: Jeanette Alexis on 11-25-2023 Thin prep Papanicolaou smear with manual screening 8 5-15 [facility] Thin prep Papanicolaou smear with manual screeningOrdered By: Enrrique Velez on 11-25-2023 Thin prep Papanicolaou smear with manual screening 1.15 ng/dL 0.76-1.46 [facility] No Panel Informationon 11-22 INR International Normalized Ratio 2.4 [facility] Basophil percentageOrdered B y: Jeanette Alexis on 10-29-2023 Chloride [Moles/Vol] 108 mmol/L 98-107 [facility] Glucose [Mass/Vol] 106 mg/dL 74-106 [facility] Comment on above: Fasting Glucose resu lt from 100 to 125 mg/dL suggests IMPAIRED HOMEOSTASIS per A.D.A. criteria. Potassium [Moles/Vol] 4.0 mmol/L 3.5-5.1 [facility] Sodium [Moles/Vol] 143 mmol/L 136-145 [facility] Basophil percentageOrdered B y: Trevor Karl on 10-29-2023 Bilirubin [Mass/Vol] 1.30 mg/dL 0.20-1.00 [facility] Comment on above: For patients on eltr ombopag therapy, use of Dimension [place] TBIL is not recommended. Cholesterol [Mass/Vol] 135 mg/dL <200 [facility] Comment on above: <200 mg/dL Desirable 200-240 mg/dL Borderline >240 mg/dL High Risk Protein [Mass/Vol] 7.7 g/dL 6.4-8.2 [facility] Triglyceride [Mass/Vol] 98 mg/dL <199 [facility] Comment on above: The drugs N-Acetylcy steine and Metamizole may falsely depress this assay.Serum Triglycerides Reference Interval Normal <150 mg/dL Borderline high 150 - 199 mg/dL High 200 - 499 mg/dL Very High > or = 500 mg/dL Direct bilirubinOrdered By: Trevor Barajas on 10-29-2023 Bilirubin.direct [Mass/Vol] 0.43 mg/dL 0.00-0.30 [facility] Laboratory - Chemistry and C hemistry - challengeOrdered By: Jeanette Alexis on 10-29-2023 CO2 [Moles/Vol] 30.0 mmol/L 21.0-32.0 [facility] Urea nitrogen/Creatinine [Mass ratio] 21.2 mg/mg 10-20 [facility] - Chemistry and C hemistry - challengeOrdered By: Trevor Barajas on 10-29-2023 ALP [Catalytic activity/Vol] 100 U/L 45-117 [facility] ALT [Catalytic activity/Vol] 30 U/L 13-56 [facility] Cholesterol in HDL [Mass/Vol] 60 mg/dL >40 [facility] Comment on above: The drugs N-Acetylcy steine and Metamizole may falsely depress this assay. Reference Range HDL <40 mg/dL Low HDL Cholesterol HDL >or= 60 mg/dL High HDL Cholesterol Cholesterol in LDL [Mass/Vol] 55 mg/dL 0-130 [facility] Globulin (S) [Mass/Vol] 3.8 g/dL 2.2-4.2 [facility] No Panel InformationOrdered By: Jeanette Alexis on 10-29-2023 Estimated GFR (MDRD) Amer 42 mL/min >60 [facility] Comment on above: GFR Calc Estimated GFR (MDRD) Non-Af Amer 35 mL/min >60 [facility] Comment on above: Non- GFR Calc No Panel InformationOrdered By: Trevor Barajas on 10-29-2023 VLDL Cholesterol 20 mg/dL 5-40 [facility] Serum or plasma calcium radha urement (mass/volume)Ordered By: Jeanette Alexis on 10-29-2023 Calcium [Mass/Vol] 10.0 mg/dL 8.5-10.1 [facility] Serum or plasma creatinine m easurement (mass/volume)Ordered By: Jeanette Alexis on 10-29-2023 Creatinine [Mass/Vol] 1.56 mg/dL 0.55-1.02 [facility] Comment on above: The validity of the calculated GFR & GFRAA in patients over 70 years has not been determined. Clinical correlation is essential. Serum or plasma urea nitroge n measurement (mass/volume)Ordered By: Jeanette Alexis on 10-29-2023 Urea nitrogen [Mass/Vol] 33 mg/dL 7-18 [facility] Thin prep Papanicolaou smear with manual screeningOrdered By: Jeanette Alexis on 10-29-2023 Thin prep Papanicolaou smear with manual screening 5 5-15 [facility] Thin prep Papanicolaou smear with manual screeningOrdered By: Trevor Barajas on 10-29-2023 Thin prep Papanicolaou smear with manual screening 3.9 g/dL 3.2-5.0 [facility] Thin prep Papanicolaou smear with manual screening 31 U/L 15-37 [facility] No Panel Informationon 09-27 INR International Normalized Ratio 3.3 [facility] No Panel Informationon 09-20 INR International Normalized Ratio 3.6 [facility] No Panel InformationOrdered By: Jessika Bauer on 08-25-2023 Thyroglobulin Antibody < 1.0 IU/mL 0.0-0.9 [facility] Comment on above: Thyroglobulin Antibo dy measured by Trever CoulterMethodologyPerformed at: BN - [facility] [address] [id number] Director: Kathia Mcelroy MD, Phone: [phone] at: - [facility] [address] [id number] Director: Rico Greco PhD, Phone: [phone] Thyroid Stimulating Hormone (TSH) 2.69 uIU/mL 0.358-3.74 [facility] Serum or plasma thyroperoxid ase antibody assay (units/volume)Ordered By: Jessika Bauer on 08-25-2023 TPO Ab Qn 23 [IU]/mL 0-34 [facility] Thyroid stimulating immunogl obulins detectionOrdered By: Jessika Bauer on 08-25-2023 Thyroid stimulating immunoglobulins Ql (S) <0.10 IU/L 0.00-0.55 [facility] Basophil percentageOrdered B y: Jessika Bauer on 08-24-2023 Chloride [Moles/Vol] 108 mmol/L 98-107 [facility] Glucose [Mass/Vol] 82 mg/dL 74-106 [facility] Potassium [Moles/Vol] 3.8 mmol/L 3.5-5.1 [facility] Sodium [Moles/Vol] 139 mmol/L 136-145 [facility] WBC (Bld) [#/Vol] 8.1 10*3/uL 4.4-11.0 [facility] Blood erythrocytes count (nu mber/volume)Ordered By: Jessika Bauer on 08-24-2023 RBC (Bld) [#/Vol] 4.72 10*6/uL 4.2-5.4 [facility] Blood hemoglobin measurement (mass/volume)Ordered By: Jessika Bauer on 08-24-2023 Hemoglobin (Bld) [Mass/Vol] 12.5 g/dL 12.0-15.0 [facility] Blood platelet mean volumeOr dered By: Jessika Bauer on 08-24-2023 Platelet mean volume (Bld) [Entitic vol] 9.4 fL 6.2-12.0 [facility] Determination of erythrocyte mean corpuscular volume (MCV)Ordered By: Jessika Bauer on 08-24-2023 MCV (RBC) [Entitic vol] 88.1 fL 81-99 [facility] Hematocrit Auto (Bld) [Volum e fraction]Ordered By: Jessika Bauer on 08-24-2023 Hematocrit (Bld) [Volume fraction] 41.6 % 37-47 [facility] - Chemistry and C hemistry - challengeOrdered By: Jessika Bauer on 08-24-2023 CO2 [Moles/Vol] 24.0 mmol/L 21.0-32.0 [facility] Natriuretic peptide B (Bld) [Mass/Vol] 1040.1 pg/mL 0-100 [facility] Urea nitrogen/Creatinine [Mass ratio] 16.8 mg/mg 10-20 [facility] - Hematology and Cell countsOrdered By: Jessika Bauer on 08-24-2023 Erythrocyte distribution width (RBC) [Entitic vol] 54.6 fL 35.1-43.9 [facility] Erythrocyte distribution width (RBC) [Ratio] 17.0 % 11.6-14.6 [facility] MCH (RBC) [Entitic mass] 26.5 pg 27.0-32.0 [facility] MCHC Auto (RBC) [Mass/Vol]Or dered By: Jessika Bauer on 08-24-2023 MCHC (RBC) [Mass/Vol] 30.0 g/dL 32-36 [facility] No Panel InformationOrdered By: Jessika Bauer on 08-24-2023 Estimated GFR (MDRD) Amer 45 mL/min >60 [facility] Comment on above: GFR Calc Estimated GFR (MDRD) Non-Af Amer 37 mL/min >60 [facility] Comment on above: Non- GFR Calc Platelets bldOrdered By: Blake Bauer on 08-24-2023 Platelets (Bld) [#/Vol] 213 10*3/uL 150-450 [facility] Serum or plasma calcium radha urement (mass/volume)Ordered By: Jessika Bauer on 08-24-2023 Calcium [Mass/Vol] 9.2 mg/dL 8.5-10.1 [facility] Serum or plasma creatinine m easurement (mass/volume)Ordered By: Jessika Bauer on 08-24-2023 Creatinine [Mass/Vol] 1.49 mg/dL 0.55-1.02 [facility] Comment on above: The validity of the calculated GFR & GFRAA in patients over 70 years has not been determined. Clinical correlation is essential. Serum or plasma urea nitroge n measurement (mass/volume)Ordered By: Jessika Bauer on 08-24-2023 Urea nitrogen [Mass/Vol] 25 mg/dL 7-18 [facility] Thin prep Papanicolaou smear with manual screeningOrdered By: Jessika Bauer on 08-24-2023 Thin prep Papanicolaou smear with manual screening 7 -15 [facility] No Panel Informationon 07-28 INR International Normalized Ratio 3.2 [facility] No Panel Informationon 06-28 INR International Normalized Ratio 1.9 [facility] No Panel Informationon 06-14 INR International Normalized Ratio 2.7 [facility] No Panel Informationon 05-10 INR International Normalized Ratio 4.1 [facility] Absolute lymphocyte countOrd ered By: Jeanette Alexis on 04-14-2023 Lymphocytes Auto (Unsp spec) [#/Vol] 1.45 10*3/uL 0.83-4.51 [facility] Basophil percentageOrdered B y: Jeanette Alexis on 04-14-2023 Basophils/100 WBC (Bld) 1.0 % 0-1 [facility] Bilirubin [Mass/Vol] 1.90 mg/dL 0.20-1.00 [facility] Comment on above: For patients on eltr ombopag therapy, use of Dimension [place] TBIL is not recommended. Chloride [Moles/Vol] 109 mmol/L 98-107 [facility] Eosinophils/100 WBC (Bld) 8.3 % 0-5 [facility] Glucose [Mass/Vol] 96 mg/dL 74-106 [facility] Neutrophils (Bld) [#/Vol] 4.6 10*3/uL 2.0-7.7 [facility] Neutrophils/100 WBC (Bld) 62.3 % 47-70 [facility] Potassium [Moles/Vol] 3.7 mmol/L 3.5-5.1 [facility] Protein [Mass/Vol] 7.2 g/dL 6.4-8.2 [facility] Sodium [Moles/Vol] 142 mmol/L 136-145 [facility] WBC (Bld) [#/Vol] 7.4 10*3/uL 4.4-11.0 [facility] Blood erythrocytes count (nu mber/volume)Ordered By: Jeanette Alexis on 04-14-2023 RBC (Bld) [#/Vol] 4.51 10*6/uL 4.2-5.4 [facility] Blood hemoglobin measurement (mass/volume)Ordered By: Jeanette Alexis on 04-14-2023 Hemoglobin (Bld) [Mass/Vol] 12.4 g/dL 12.0-15.0 [facility] Blood lymphocytes/100 leukoc ytesOrdered By: Jeanette Alexis on 04-14-2023 Lymphocytes/100 WBC (Bld) 19.7 % 19-41 [facility] Blood monocytes/100 leukocyt esOrdered By: Jeanette Alexis on 04-14-2023 Monocytes/100 WBC (Bld) 8.2 % 0-10 [facility] Blood platelet mean volumeOr dered By: Jeanette Alexis on 04-14-2023 Platelet mean volume (Bld) [Entitic vol] 9.4 fL 6.2-12.0 [facility] Determination of erythrocyte mean corpuscular volume (MCV)Ordered By: Jeanette Alexis on 04-14-2023 MCV (RBC) [Entitic vol] 91.1 fL 81-99 [facility] Hematocrit Auto (Bld) [Volum e fraction]Ordered By: Jeanette Alexis on 04-14-2023 Hematocrit (Bld) [Volume fraction] 41.1 % 37-47 [facility] - Chemistry and C hemistry - challengeOrdered By: Jeanette Alexis on 04-14-2023 ALP [Catalytic activity/Vol] 86 U/L 45-117 [facility] ALT [Catalytic activity/Vol] 24 U/L 13-56 [facility] CO2 [Moles/Vol] 31.0 mmol/L 21.0-32.0 [facility] Globulin (S) [Mass/Vol] 3.5 g/dL 2.2-4.2 [facility] Natriuretic peptide B (Bld) [Mass/Vol] 466.0 pg/mL 0-100 [facility] Urea nitrogen/Creatinine [Mass ratio] 23.7 mg/mg 10-20 [facility] - Hematology and Cell countsOrdered By: Jeanette Alexis on 04-14-2023 Erythrocyte distribution width (RBC) [Entitic vol] 54.8 fL 35.1-43.9 [facility] Erythrocyte distribution width (RBC) [Ratio] 16.3 % 11.6-14.6 [facility] Immature granulocytes/100 WBC (Bld) 0.500 % 0.0-0.9 [facility] Comment on above: IG% - Immature Granu locytes (promyelocytes, myelocytes and metamyelocytes) > 1% indicates that a LEFT SHIFT is Present. MCH (RBC) [Entitic mass] 27.5 pg 27.0-32.0 [facility] Nucleated RBC/100 W[facility] (Bld) [[facility]] 0 % [facility] [Mass/Vol]Or dered By: Jeanette Alexis on 04-14-2023 MCHC (RBC) [Mass/Vol] 30.2 g/dL 32-36 [facility] No Panel InformationOrdered By: Jeanette Alexis on 04-14-2023 Estimated GFR (MDRD) Amer 48 mL/min >60 [facility] Comment on above: GFR Calc Estimated GFR (MDRD) Non-Af Amer 40 mL/min >60 [facility] Comment on above: Non- GFR Calc Platelets bldOrdered By: Ralf Alexis on 04-14-2023 Platelets (Bld) [#/Vol] 169 10*3/uL 150-450 [facility] Serum or plasma albumin radha urement (mass/volume)Ordered By: Jeanette Alexis on 04-14-2023 Albumin [Mass/Vol] 3.7 g/dL 3.2-5.0 [facility] Serum or plasma albumin/glob ulin mass ratioOrdered By: Jeanette Alexis on 04-14-2023 Albumin/Globulin [Mass ratio] 1.1 {ratio} 0.9-2.4 [facility] Serum or plasma calcium rdaha urement (mass/volume)Ordered By: Jeanette Alexis on 04-14-2023 Calcium [Mass/Vol] 9.4 mg/dL 8.5-10.1 [facility] Serum or plasma creatinine m easurement (mass/volume)Ordered By: Jeanette Alexis on 04-14-2023 Creatinine [Mass/Vol] 1.39 mg/dL 0.55-1.02 [facility] Comment on above: The validity of the calculated GFR & GFRAA in patients over 70 years has not been determined. Clinical correlation is essential. Serum or plasma urea nitroge n measurement (mass/volume)Ordered By: Jeanette Alexis on 04-14-2023 Urea nitrogen [Mass/Vol] 33 mg/dL 7-18 [facility] Thin prep Papanicolaou smear with manual screeningOrdered By: Jeanette Alexis on 04-14-2023 Thin prep Papanicolaou smear with manual screening 30 U/L 15-37 [facility] Thin prep Papanicolaou smear with manual screening 2 5-15 [facility] CNPNon 03-29-2023 CNPN Telephone (ENDOSO) EM DANIEL ([id number]) 1955 F CHT Date Time Provider Department 03/29/23 SANTINO PHAN During your visit today, we recorded the following information about you: Mague Vimal 03/29/2023 12:24 PM Signed Called pt to assist with rescheduling appt with a different provider, Dr. Phan is leaving practice. Allergies As of Date: 03/29/2023 (No Known Allergies) Date Reviewed: 12/15/2022 Reviewed by: Maya Vera MA - Fully Assessed Reason for Visit: Appointment [186] Prescriptions as of 03/29/2023 - warfarin (COUMADIN) 5 mg tablet 7.5 mg , Wednesday, 5 mg daily or as directed - warfarin (COUMADIN) 1 mg tablet 7.5 mg , Wednesday, 5 mg daily or as directed - potassium chloride (K-TAB) 10 mEq tablet Take 1 tablet by mouth daily with breakfast. - pantoprazole DR (PROTONIX) 40 mg tablet Take 1 tablet by mouth once daily. - methIMAzole (TAPAZOLE) 5 mg tablet Take 0.5 tablets by mouth every other day. - spironolactone (ALDACTONE) 25 mg tablet Take 1 tablet by mouth twice daily. - torsemide (DEMADEX) 20 mg tablet Take 1 tablet by mouth three times daily. - metoprolol succinate ER (TOPROL XL) 50 mg 24 hr tablet Take 1 tablet by mouth once daily. - aspirin 81 mg chewable tablet Take 81 mg by mouth once daily. - multivitamin tablet Take 1 tablet by mouth once daily. Problem List As Of Date 03/29/2023 Noted Resolved Hypertrophic obstructive cardiomyopathy (HCC) [*05/01/2015 AICD (automatic cardioverter/defibrillator) pre*05/01/2015 Atrial fibrillation (HCC) [I48.91] 05/01/2015 Hyperthyroidism [E05.90] 05/01/2015 DDD (degenerative disc disease), cervical [M50.*05/01/2015 Vertebral compression fracture (HCC) [M48.50XA] 05/01/2015 Other allergic rhinitis [J30.89] 05/01/2015 GERD (gastroesophageal reflux disease) [K21.9] 05/01/2015 S/P MVR (mitral valve repair) [Z98.890] 08/01/2020 Pulmonary hypertension (HCC) [I27.20] 08/01/2020 Essential hypertension [I10] 08/01/2020 History of transient ischemic attack (TIA) [Z86*08/01/2020 Diarrhea [R19.7] 08/01/2020 Osteopenia, senile [M85.80] 01/21/2021 Stage 3b chronic kidney disease (HCC) [N18.32] 01/21/2021 Hypoxia [R09.02] 09/14/2021 COVID [U07.1] 09/14/2021 09/17/2021 GI bleed [K92.2] 10/01/2021 Acute blood loss anemia [D62] 10/01/2021 NARCISO (acute kidney injury) (HCC) [N17.9] 10/01/2021 Malnutrition of mild degree (HCC) [E44.1] 10/03/2021 Malnutrition of moderate degree (HCC) [E44.0] 10/07/2021 Chronic gastric ulcer [K25.7] H/O mitral valve replacement [Z95.2] 05/11/2022 V tach (HCC) [I47.20] 05/11/2022 HOCM (hypertrophic obstructive cardiomyopathy) *05/11/2022 HTN (hypertension) [I10] 05/11/2022 ICD (implantable cardioverter-defibrillator) in*05/11/2022 Tachycardia [R00.0] 05/11/2022 TIA (transient ischemic attack) [G45.9] 05/11/2022 Encounter Status:Closed by MAGUE DE JESUS on 03/29/23 [facility] 03-22-2023 CNPN Telephone (FAMPWS) EM DANIEL ([id number]) 1955 F T Date Time Provider Department 03/22/23 YORDY ALLEN FAMWS During your visit today, we recorded the following information about you: Vilma Crespo Ma 03/22/2023 9:36 AM Signed Last INR: INR 3.2 03/22/2023 Current dose of coumadin is: 7.5 mg Wed/Wed/Wed and 5 mg all other days . Last date of dose change: 02/22/23. Previous INR (date and result): 02/22/23 INR: 1.3 Additional Clinical Information or narrative: no NOTIFY PT VIA [employer] Yordy Allen MD 03/22/2023 2:06 PM Signed INR a little high at 3.2 Go to 7.5 mg on and Wed; 5 mg all other days Recheck in 2 weeks MD Vilma Auguste Ma 03/22/2023 2:17 PM Signed Pt notified via [employer]. Advised to notify office that she has reviewed the message and changes made. Tracker and med list updated. Vilma Crespo Ma Allergies As of Date: 03/22/2023 (No Known Allergies) Date Reviewed: 12/15/2022 Reviewed by: Maya Vera MA - Fully Assessed Reason for Visit: Anticoagulation [8] Primary Visit Diagnosis:Paroxysmal atrial fibrillation (HCC) [I48.0] Other Visit Diagnosis:AICD (automatic cardioverter/defibrillator) present [Z95.810] Order(s):PROTHROMBIN TIME/PT [SQPT] Order #: [id number] Prescriptions as of 03/22/2023 - warfarin (COUMADIN) 5 mg tablet 7.5 mg , Wednesday, 5 mg daily or as directed - warfarin (COUMADIN) 1 mg tablet 7.5 mg , Wednesday, 5 mg daily or as directed - potassium chloride (K-TAB) 10 mEq tablet Take 1 tablet by mouth daily with breakfast. - pantoprazole DR (PROTONIX) 40 mg tablet Take 1 tablet by mouth once daily. - methIMAzole (TAPAZOLE) 5 mg tablet Take 0.5 tablets by mouth every other day. - spironolactone (ALDACTONE) 25 mg tablet Take 1 tablet by mouth twice daily. - torsemide (DEMADEX) 20 mg tablet Take 1 tablet by mouth three times daily. - metoprolol succinate ER (TOPROL XL) 50 mg 24 hr tablet Take 1 tablet by mouth once daily. - aspirin 81 mg chewable tablet Take 81 mg by mouth once daily. - multivitamin tablet Take 1 tablet by mouth once daily. Problem List As Of Date 03/22/2023 Noted Resolved Hypertrophic obstructive cardiomyopathy (HCC) [*05/01/2015 AICD (automatic cardioverter/defibrillator) pre*05/01/2015 Atrial fibrillation (HCC) [I48.91] 05/01/2015 Hyperthyroidism [E05.90] 05/01/2015 DDD (degenerative disc disease), cervical [M50.*05/01/2015 Vertebral compression fracture (HCC) [M48.50XA] 05/01/2015 Other allergic rhinitis [J30.89] 05/01/2015 GERD (gastroesophageal reflux disease) [K21.9] 05/01/2015 S/P MVR (mitral valve repair) [Z98.890] 08/01/2020 Pulmonary hypertension (HCC) [I27.20] 08/01/2020 Essential hypertension [I10] 08/01/2020 History of transient ischemic attack (TIA) [Z86*08/01/2020 Diarrhea [R19.7] 08/01/2020 Osteopenia, senile [M85.80] 01/21/2021 Stage 3b chronic kidney disease (HCC) [N18.32] 01/21/2021 Hypoxia [R09.02] 09/14/2021 COVID [U07.1] 09/14/2021 09/17/2021 GI bleed [K92.2] 10/01/2021 Acute blood loss anemia [D62] 10/01/2021 NARCISO (acute kidney injury) (HCC) [N17.9] 10/01/2021 Malnutrition of mild degree (HCC) [E44.1] 10/03/2021 Malnutrition of moderate degree (HCC) [E44.0] 10/07/2021 Chronic gastric ulcer [K25.7] H/O mitral valve replacement [Z95.2] 05/11/2022 V tach (HCC) [I47.20] 05/11/2022 HOCM (hypertrophic obstructive cardiomyopathy) *05/11/2022 HTN (hypertension) [I10] 05/11/2022 ICD (implantable cardioverter-defibrillator) in*05/11/2022 Tachycardia [R00.0] 05/11/2022 TIA (transient ischemic attack) [G45.9] 05/11/2022 Medications Discontinued During This Encounter Prescriptions - warfarin (COUMADIN) 1 mg tablet (Discontinued) 7.5 mg Wed, Wed, Wednesday, 5 mg daily or as directed - warfarin (COUMADIN) 5 mg tablet (Discontinued) 7.5 mg Wed, Wed, Wednesday, 5 mg daily or as directed Encounter Status:Closed by VILMA CRESPO MA on 03/22/23 Normal [facility] PT panel Coag (PPP)on 2022 INR Coag (Bld) [Relative time] 3.2 {INR} 2.5 - 3.5 [facility] 02-22-2023 CNPN Telephone (FAMPWS) EM DANIEL ([id number]) 1955 F CHT Date Time Provider Department 02/22[facility]23 [facility] your visit today, we recorded the following information about you: Vilma Crespo Ma 02/22/2023 4:10 PM Signed Last INR: INR 1.3 02/22/2023 Current dose of coumadin is: 7.5 mg on Wed; 5 mg all other days. Last date of dose change: 02/02/23. Previous INR (date and result): 02/02/23 INR: 2.3 Additional Clinical Information or narrative: no Notify pt via [employer]. Yordy Allen MD 02/22/2023 6:42 PM Signed INR low at 1.3 Go to 7.5 mg on Mon, Weds, Fri; 5 mg all other days Recheck in 2 weeks MD Vilma Auguste Ma 02/22/2023 7:01 PM Signed Pt notified via [employer]. Asked her to notify office when she gets message. Tracker and med list updated. Vilma Love RN 02/23/2023 8:15 AM Signed Camron Chávez INR, phoned to report patient's INR result on 02-22-23 was 1.3. Phoned patient and left detailed vm on identified vm, letting her know INR was 1.3 and left pcp instructions. Asked patient to return call to nurse, to let us know she did receive this vm and also [facility] message that was sent to her with INR instructions. Allergies As of Date: 02/22/2023 (No Known Allergies) Date Reviewed: 12/15/2022 Reviewed by: Maya Vera MA - Fully Assessed Reason for Visit: Anticoagulation [8] Visit Diagnoses:Paroxysmal atrial fibrillation (HCC) [I48.0] AICD (automatic cardioverter/defibrillator) present [Z95.810] Order(s):PROTHROMBIN TIME/PT [SQPT] Order #: [id number] Prescriptions as of 02/23/2023 - warfarin (COUMADIN) 5 mg tablet 7.5 mg Mon, Wed, Wednesday, 5 mg daily or as directed - warfarin (COUMADIN) 1 mg tablet 7.5 mg Wed, Wed, Wednesday, 5 mg daily or as directed - potassium chloride (K-TAB) 10 mEq tablet Take 1 tablet by mouth daily with breakfast. - pantoprazole DR (PROTONIX) 40 mg tablet Take 1 tablet by mouth once daily. - methIMAzole (TAPAZOLE) 5 mg tablet Take 0.5 tablets by mouth every other day. - spironolactone (ALDACTONE) 25 mg tablet Take 1 tablet by mouth twice daily. - torsemide (DEMADEX) 20 mg tablet Take 1 tablet by mouth three times daily. - metoprolol succinate ER (TOPROL XL) 50 mg 24 hr tablet Take 1 tablet by mouth once daily. - aspirin 81 mg chewable tablet Take 81 mg by mouth once daily. - multivitamin tablet Take 1 tablet by mouth once daily. Facility-Administered Medications as of 02/23/2023 - perflutren lipid microspheres 1.3 mL in NaCl (PF) 0.9% 10 mL injection (DEFINITY) - sodium chloride 0.9 % (flush) 10 mL (BD POSIFLUSH) - perflutren lipid microspheres 1.3 mL in NaCl (PF) 0.9% 10 mL injection (DEFINITY) - sodium chloride 0.9 % (flush) 10 mL (BD POSIFLUSH) Problem List As Of Date 02/22/2023 Noted Resolved Hypertrophic obstructive cardiomyopathy (HCC) [*05/01/2015 AICD (automatic cardioverter/defibrillator) pre*05/01/2015 Atrial fibrillation (HCC) [I48.91] 05/01/2015 Hyperthyroidism [E05.90] 05/01/2015 DDD (degenerative disc disease), cervical [M50.*05/01/2015 Vertebral compression fracture (HCC) [M48.50XA] 05/01/2015 Other allergic rhinitis [J30.89] 05/01/2015 GERD (gastroesophageal reflux disease) [K21.9] 05/01/2015 S/P MVR (mitral valve repair) [Z98.890] 08/01/2020 Pulmonary hypertension (HCC) [I27.20] 08/01/2020 Essential hypertension [I10] 08/01/2020 History of transient ischemic attack (TIA) [Z86*08/01/2020 Diarrhea [R19.7] 08/01/2020 Osteopenia, senile [M85.80] 01/21/2021 Stage 3b chronic kidney disease (HCC) [N18.32] 01/21/2021 Hypoxia [R09.02] 09/14/2021 COVID [U07.1] 09/14/2021 09/17/2021 GI bleed [K92.2] 10/01/2021 Acute blood loss anemia [D62] 10/01/2021 NARCISO (acute kidney injury) (HCC) [N17.9] 10/01/2021 Malnutrition of mild degree (HCC) [E44.1] 10/03/2021 Malnutrition of moderate degree (HCC) [E44.0] 10/07/2021 Chronic gastric ulcer [K25.7] H/O mitral valve replacement [Z95.2] 05/11/2022 V tach (HCC) [I47.20] 05/11/2022 HOCM (hypertrophic obstructive cardiomyopathy) *05/11/2022 HTN (hypertension) [I10] 05/11/2022 ICD (implantable cardioverter-defibrillator) in*05/11/2022 Tachycardia [R00.0] 05/11/2022 TIA (transient ischemic attack) [G45.9] 05/11/2022 Medications Discontinued During This Encounter Prescriptions - warfarin (COUMADIN) 1 mg tablet (Discontinued) 7.5 mg M//, 5 mg all other days or as directed - warfarin (COUMADIN) 5 mg tablet (Discontinued) 5 mg daily Encounter Status:Closed by VILMA CRESPO MA on 02/22/23 Normal [facility] Comprehensive metabolic 2000 panelon 02-15-2023 Albumin [Mass/Vol] 4.3 g/dL Normal 3.9-4.[address] [facility] Comment on above: Order Comment: Speci men Type: BLOOD SPECIMENOrdering Facility: [facility] Address: [address] [address] Performed By: #### 2 4323-8 ####[facility] LABIA [id number] [place] [address] [place] ALP [Catalytic activity/Vol] 81 U/L Normal 34-123 [facility] Comment on above: Order Comment: Speci men Type: BLOOD SPECIMENOrdering Facility: [facility] Address: [address] [address] Performed By: #### 2 4323-8 ####[facility] LABIA [id number] [place] [address] [place] ALT [Catalytic activity/Vol] 17 U/L Normal 7-38 [facility] Comment on above: Order Comment: Speci men Type: BLOOD SPECIMENOrdering Facility: [facility] Address: [address] Performed By: #### 2 4323-8 ####[facility] LABCLIA [id number] [place] [address] [place] Anion gap [Moles/Vol] 13 mmol/L Normal 9-18 [facility] Comment on above: Order Comment: Speci men Type: BLOOD SPECIMENOrdering Facility: [facility] Address: [address] [address] Performed By: #### 2 4323-8 ####[facility] LABCLIA [id number] [place] [address] [place] AST [Catalytic activity/Vol] 26 U/L Normal 13-35 [facility] Comment on above: Order Comment: Speci men Type: BLOOD SPECIMENOrdering Facility: [facility] Address: [address] Performed By: #### 2 4323-8 ####[facility] LABCLIA [id number] [place] [address] [place] Bilirubin [Mass/Vol] 1.4 mg/dL High 0.2-1.3 [facility] Comment on above: Order Comment: Speci men Type: BLOOD SPECIMENOrdering Facility: [facility] Address: [address] Performed By: #### 2 4323-8 ####[facility] LABCLIA [id number] [place] [address] [place] Calcium [Mass/Vol] 10.0 mg/dL Normal 8.5-10.[address] [facility] Comment on above: Order Comment: Speci men Type: BLOOD SPECIMENOrdering Facility: [facility] Address: [address] Performed By: #### 2 4323-8 ####[facility] LABCLIA [id number] [place] [address] [place] Chloride [Moles/Vol] 104 mmol/L Normal 97-105 [facility] Comment on above: Order Comment: Speci men Type: BLOOD SPECIMENOrdering Facility: [facility] Address: [address] [place] [address] Performed By: #### 2 4323-8 ####[facility] LABCLIA [id number] [place] [address] [place] CO2 [Moles/Vol] 25 mmol/L Normal 22-30 [facility] Comment on above: Order Comment: Speci men Type: BLOOD SPECIMENOrdering Facility: [facility] Address: [address] [place] [address] Performed By: #### 2 4323-8 ####[facility] LABIA [id number] [place] [address] [place] [facility] Creatinine [Mass/Vol] 1.35 mg/dL High 0.58-0.96 [facility] Comment on above: Order Comment: Speci men Type: BLOOD SPECIMENOrdering Facility: [facility] Address: [address] [place] [address] Performed By: #### 2 4323-8 ####[facility] LABIA [id number] [address] OF [facility] ESTIMATED GLOMERULAR FILTRATION RATE 43 mL/min/1.73m??? Low >=60 [facility] Comment on above: Order Comment: Speci men Type: BLOOD SPECIMENOrdering Facility: [facility] Address: [address] [place] [address] Result Comment: Cindy mated Glomerular Filtration Rate (eGFR) is calculated using the 2020 CKD-EPI creatinine equation. This equation utilizes serum creatinine, sex, and age as parameters. The creatinine assay has traceable calibration to isotope dilution-mass spectrometry. Refer to KDIGO guidelines for clinical interpretation. In patients with unstable renal function, e.g. those with acute kidney injury, the eGFR may not accurately reflect actual GFR. Performed By: #### 2 4323-8 ####[facility] LABCLIA [id number] [place] [address] [place] Glucose [Mass/Vol] 106 mg/dL High 74-[address] [facility] Comment on above: Order Comment: Speci men Type: BLOOD SPECIMENOrdering Facility: [facility] Address: [address] [place] [address] Result Comment: The [place] Diabetes Association (ADA) provides guidance for cutoff values for fasting glucose and random glucose. The ADA defines fasting as no caloric intake for at least 8 hours. Fasting plasma glucose results between 100 to 125 mg/dL indicate increased risk for diabetes (prediabetes). Fasting plasma glucose results greater than or equal to 126 mg/dL meet the criteria for diagnosis of diabetes. In the absence of unequivocal hyperglycemia, results should be confirmed by repeat testing. In a patient with classic symptoms of hyperglycemia or hyperglycemic crisis, random plasma glucose results greater than or equal to 200 mg/dL meet the criteria for diagnosis of diabetes. Reference: Standards of Medical Care in Diabetes 2016, [place] Diabetes Association. Diabetes Care. 2016.39(Suppl 1). Performed By: #### 2 4323-8 ####[facility] LABIA [id number] [place] [address] [place] Potassium [Moles/Vol] 4.4 mmol/L Normal 3.7-5.1 [facility] Comment on above: Order Comment: Speci men Type: BLOOD SPECIMENOrdering Facility: [facility] Address: [address] [address] Performed By: #### 2 4323-8 ####[facility] LABIA [id number] [place] [address] [place] Protein [Mass/Vol] 7.0 g/dL Normal 6.3-8.[address] [facility] Comment on above: Order Comment: Speci men Type: BLOOD SPECIMENOrdering Facility: [facility] Address: [address] [address] Performed By: #### 2 4323-8 ####[facility] LABCLIA [id number] [place] [address] [place] Sodium [Moles/Vol] 142 mmol/L Normal 136-[address] [facility] Comment on above: Order Comment: Speci men Type: BLOOD SPECIMENOrdering Facility: [facility] Address: [address] [place] [address] Performed By: #### 2 4323-8 ####[facility] LABCLIA [id number] [place] [address] [place] Urea nitrogen [Mass/Vol] 33 mg/dL High 7-21 [facility] Comment on above: Order Comment: Speci men Type: BLOOD SPECIMENOrdering Facility: [facility] Address: [address] [place] [address] Performed By: #### 2 4323-8 ####[facility] LABCLIA [id number] [place] [address] [place] HbA1c (Bld)on 02-15-2023 Average glucose Estimated from glycated hemoglobin (Bld) [Mass/Vol] 123 mg/dL Normal [facility] Comment on above: Order Comment: Speci men Type: BLOOD SPECIMENOrdering Facility: [facility] Address: [address] [place] [address] Result Comment: eAG: (Estimated average glucose) is a calculated value from HgbA1c and is client services representative of the average blood glucose level in the last 2-3 month period. Performed By: #### 5 5454-3 ####[facility] LABCLIA [id number] [place] [address] [place] HbA1c (Bld) [Mass fraction] 5.9 % High 4.3-5.6 [facility] Comment on above: Order Comment: Speci men Type: BLOOD SPECIMENOrdering Facility: [facility] Address: [address] [place] [address] Result Comment: [place] Diabetes Association guidelines indicate that patients with HgbA1c in the range 5.7-6.4% are at increased risk for development of diabetes, and intervention by lifestyle modification may be beneficial. HgbA1c greater or equal to 6.5% is considered diagnostic of diabetes. Performed By: #### 5 5454-3 ####[facility] LABCLIA [id number] [address] [id number] [facility] CNPNon 02-02-2023 [facility] EM DANIEL ([id number]) 1955 F CHT Date Time Provider Department 02/02/23 [facility] During your visit today, we recorded the following information about you: Celsa Jacobs Ma 02/02/2023 11:10 AM Signed Last INR: INR 2.3 02/02/2023 Current dose of coumadin is: Hold coumadin x 2 days, then go to 5 mg daily. Last date of dose change: 01/26/23. Previous INR (date and result): 4.2 on 01/26/23 Additional Clinical Information or narrative: no Celsa Allen MD 02/02/2023 3:02 PM Signed INR good at 2.3 Stay on 5 mg daily Recheck in 2 weeks MD Charline Auguste MA 02/02/2023 3:19 PM Signed Unable to reach patient. Left VM to return call to office. Please read below and advise. Tracker updated. RYLEE Damian Ma 02/02/2023 3:37 PM Addendum [employer] message sent to pt notifying her of message below from PCP. Pt to update office she's received message and is aware. Celsa Carrasquillo RN 02/05/2023 12:58 PM Signed Patient returned call and given Dr. Allen's message, as copied: INR good at 2.3 Stay on 5 mg daily Recheck in 2 weeks Yordy Allen MD Pt states she would like Dr. Allen to be reminded that she has an artificial heart valve and was recommended that her INR be at least 2.5. Informed patient that she would be contacted if PCP had other orders. Gabriela Carrasquillo RN Yordy Allen MD 02/05/2023 3:07 PM Signed Change to 7.5 mg on Fri; 5 mg all other days Recheck in 2 weeks MD Allyson Auguste RN 02/05/2023 4:16 PM Signed Pt called and is notified of providers message and instructions. Pt voices understanding. Allyson Lopez RN Allergies As of Date: 02/02/2023 (No Known Allergies) Date Reviewed: 12/15/2022 Reviewed by: Maya Vera MA - Fully Assessed Reason for Visit: Anticoagulation [8] Visit Diagnosis:Paroxysmal atrial fibrillation (HCC) [I48.0] Order(s):PROTHROMBIN TIME/PT [SQPT] Order #: [id number] Prescriptions as of 02/05/2023 - potassium chloride (K-TAB) 10 mEq tablet Take 1 tablet by mouth daily with breakfast. - pantoprazole DR (PROTONIX) 40 mg tablet Take 1 tablet by mouth once daily. - warfarin (COUMADIN) 5 mg tablet 7.5 mg M/W/F, 5 mg all other days or as directed - warfarin (COUMADIN) 1 mg tablet 7.5 mg M/W/F, 5 mg all other days or as directed - methIMAzole (TAPAZOLE) 5 mg tablet Take 0.5 tablets by mouth every other day. - spironolactone (ALDACTONE) 25 mg tablet Take 1 tablet by mouth twice daily. - torsemide (DEMADEX) 20 mg tablet Take 1 tablet by mouth three times daily. - metoprolol succinate ER (TOPROL XL) 50 mg 24 hr tablet Take 1 tablet by mouth once daily. - aspirin 81 mg chewable tablet Take 81 mg by mouth once daily. - multivitamin tablet Take 1 tablet by mouth once daily. Facility-Administered Medications as of 02/05/2023 - perflutren lipid microspheres 1.3 mL in NaCl (PF) 0.9% 10 mL injection (DEFINITY) - sodium chloride 0.9 % (flush) 10 mL (BD POSIFLUSH) - perflutren lipid microspheres 1.3 mL in NaCl (PF) 0.9% 10 mL injection (DEFINITY) - sodium chloride 0.9 % (flush) 10 mL (BD POSIFLUSH) Problem List As Of Date 02/02/2023 Noted Resolved Hypertrophic obstructive cardiomyopathy (HCC) [*05/01/2015 AICD (automatic cardioverter/defibrillator) pre*05/01/2015 Atrial fibrillation (HCC) [I48.91] 05/01/2015 Hyperthyroidism [E05.90] 05/01/2015 DDD (degenerative disc disease), cervical [M50.*05/01/2015 Vertebral compression fracture (HCC) [M48.50XA] 05/01/2015 Other allergic rhinitis [J30.89] 05/01/2015 GERD (gastroesophageal reflux disease) [K21.9] 05/01/2015 S/P MVR (mitral valve repair) [Z98.890] 08/01/2020 Pulmonary hypertension (HCC) [I27.20] 08/01/2020 Essential hypertension [I10] 08/01/2020 History of transient ischemic attack (TIA) [Z86*08/01/2020 Diarrhea [R19.7] 08/01/2020 Osteopenia, senile [M85.80] 01/21/2021 Stage 3b chronic kidney disease (HCC) [N18.32] 01/21/2021 Hypoxia [R09.02] 09/14/2021 COVID [U07.1] 09/14/2021 09/17/2021 GI bleed [K92.2] 10/01/2021 Acute blood loss anemia [D62] 10/01/2021 NARCISO (acute kidney injury) (HCC) [N17.9] 10/01/2021 Malnutrition of mild degree (HCC) [E44.1] 10/03/2021 Malnutrition of moderate degree (HCC) [E44.0] 10/07/2021 Chronic gastric ulcer [K25.7] H/O mitral valve replacement [Z95.2] 05/11/2022 V tach (HCC) [I47.20] 05/11/2022 HOCM (hypertrophic obstructive cardiomyopathy) *05/11/2022 HTN (hypertension) [I10] 05/11/2022 ICD (implantable cardioverter-defibrillator) in*05/11/2022 Tachycardia [R00.0] 05/11/2022 TIA (transient ischemic attack) [G45.9] 05/11/2022 Encounter Status:Closed by VILMA CRESPO MA on 02/04/23 [facility] CNPNon 01-26-2023 CNPN Telephone (FAMPWS) EM DANIEL ([id number]) 1955 F T Date Time Provider Department 01/26/23 YORDY ALLEN During your visit today, we recorded the following information about you: Vilma Crespo Ma 01/26/2023 1:29 PM Signed Last INR: INR 4.2 01/26/2023 Current dose of coumadin is: 7.5 mg daily. Last date of dose change: 01/14/23. Previous INR (date and result): 01/18/23 INR: 2.1 Additional Clinical Information or narrative: no Yordy Allen MD 01/26/2023 2:00 PM Signed INR is now high at 4.2 Hold coumadin for 2 days, then go to 5 mg daily Recheck in 1 week MD Celsa Auguste Ma 01/26/2023 3:08 PM Signed [employer] message sent to pt notifying her of instructions below from PCP. Asked pt to notify office that she's received these instructions. Tracker updated. Celsa Jacobs Ma Allergies As of Date: 01/26/2023 (No Known Allergies) Date Reviewed: 12/15/2022 Reviewed by: Maya Vera MA - Fully Assessed Reason for Visit: Anticoagulation [8] Visit Diagnosis:Paroxysmal atrial fibrillation (HCC) [I48.0] Order(s):PROTHROMBIN TIME/PT [SQPT] Order #: [id number] Prescriptions as of 01/29/2023 - potassium chloride (K-TAB) 10 mEq tablet Take 1 tablet by mouth daily with breakfast. - pantoprazole DR (PROTONIX) 40 mg tablet Take 1 tablet by mouth once daily. - warfarin (COUMADIN) 5 mg tablet 7.5 mg M/W/F, 5 mg all other days or as directed - warfarin (COUMADIN) 1 mg tablet 7.5 mg M/W/F, 5 mg all other days or as directed - methIMAzole (TAPAZOLE) 5 mg tablet Take 0.5 tablets by mouth every other day. - spironolactone (ALDACTONE) 25 mg tablet Take 1 tablet by mouth twice daily. - torsemide (DEMADEX) 20 mg tablet Take 1 tablet by mouth three times daily. - metoprolol succinate ER (TOPROL XL) 50 mg 24 hr tablet Take 1 tablet by mouth once daily. - aspirin 81 mg chewable tablet Take 81 mg by mouth once daily. - multivitamin tablet Take 1 tablet by mouth once daily. Facility-Administered Medications as of 01/29/2023 - perflutren lipid microspheres 1.3 mL in NaCl (PF) 0.9% 10 mL injection (DEFINITY) - sodium chloride 0.9 % (flush) 10 mL (BD POSIFLUSH) - perflutren lipid microspheres 1.3 mL in NaCl (PF) 0.9% 10 mL injection (DEFINITY) - sodium chloride 0.9 % (flush) 10 mL (BD POSIFLUSH) Problem List As Of Date 01/26/2023 Noted Resolved Hypertrophic obstructive cardiomyopathy (HCC) [*05/01/2015 AICD (automatic cardioverter/defibrillator) pre*05/01/2015 Atrial fibrillation (HCC) [I48.91] 05/01/2015 Hyperthyroidism [E05.90] 05/01/2015 DDD (degenerative disc disease), cervical [M50.*05/01/2015 Vertebral compression fracture (HCC) [M48.50XA] 05/01/2015 Other allergic rhinitis [J30.89] 05/01/2015 GERD (gastroesophageal reflux disease) [K21.9] 05/01/2015 S/P MVR (mitral valve repair) [Z98.890] 08/01/2020 Pulmonary hypertension (HCC) [I27.20] 08/01/2020 Essential hypertension [I10] 08/01/2020 History of transient ischemic attack (TIA) [Z86*08/01/2020 Diarrhea [R19.7] 08/01/2020 Osteopenia, senile [M85.80] 01/21/2021 Stage 3b chronic kidney disease (HCC) [N18.32] 01/21/2021 Hypoxia [R09.02] 09/14/2021 COVID [U07.1] 09/14/2021 09/17/2021 GI bleed [K92.2] 10/01/2021 Acute blood loss anemia [D62] 10/01/2021 NARCISO (acute kidney injury) (HCC) [N17.9] 10/01/2021 Malnutrition of mild degree (HCC) [E44.1] 10/03/2021 Malnutrition of moderate degree (HCC) [E44.0] 10/07/2021 Chronic gastric ulcer [K25.7] H/O mitral valve replacement [Z95.2] 05/11/2022 V tach (HCC) [I47.20] 05/11/2022 HOCM (hypertrophic obstructive cardiomyopathy) *05/11/2022 HTN (hypertension) [I10] 05/11/2022 ICD (implantable cardioverter-defibrillator) in*05/11/2022 Tachycardia [R00.0] 05/11/2022 TIA (transient ischemic attack) [G45.9] 05/11/2022 Encounter Status:Closed by VILMA CRESPO MA on 01/29/23 [facility] Alexander 01-18-2023 CNPN Telephone (FAMJulaiWS) EM DANIEL ([id number]) 1955 F T Date Time Provider Department 01/18/23 YORDY ALLEN During your visit today, we recorded the following information about you: Lita Washington MA 01/18/2023 1:14 PM Signed PT INR Date Value Ref Range Status 01/18/2023 2.1 (A) 2.5 - 3.5 Final Patient currently taking 7.5 mg daily. Please review and advise. RYLEE Modi MD 01/18/2023 2:24 PM Signed INR good at 2.1 Stay on same dose of coumadin Recheck in 1 week MD Nallely Auguste LPN 01/18/2023 2:40 PM Signed Detailed message left on pt's vm. Requested pt call back to verify message. Tracker updated. Nallely Simmons LPN Allergies As of Date: 01/18/2023 (No Known Allergies) Date Reviewed: 12/15/2022 Reviewed by: Maya Vera MA - Fully Assessed Reason for Visit: Anticoagulation [8] Order(s):PROTHROMBIN TIME/PT [SQPT] Order #: [id number] Prescriptions as of 01/19/2023 - potassium chloride (K-TAB) 10 mEq tablet Take 1 tablet by mouth daily with breakfast. - pantoprazole DR (PROTONIX) 40 mg tablet Take 1 tablet by mouth once daily. - warfarin (COUMADIN) 5 mg tablet 7.5 mg M/W/F, 5 mg all other days or as directed - warfarin (COUMADIN) 1 mg tablet 7.5 mg M/W/F, 5 mg all other days or as directed - methIMAzole (TAPAZOLE) 5 mg tablet Take 0.5 tablets by mouth every other day. - spironolactone (ALDACTONE) 25 mg tablet Take 1 tablet by mouth twice daily. - torsemide (DEMADEX) 20 mg tablet Take 1 tablet by mouth three times daily. - metoprolol succinate ER (TOPROL XL) 50 mg 24 hr tablet Take 1 tablet by mouth once daily. - aspirin 81 mg chewable tablet Take 81 mg by mouth once daily. - multivitamin tablet Take 1 tablet by mouth once daily. Facility-Administered Medications as of 01/19/2023 - perflutren lipid microspheres 1.3 mL in NaCl (PF) 0.9% 10 mL injection (DEFINITY) - sodium chloride 0.9 % (flush) 10 mL (BD POSIFLUSH) - perflutren lipid microspheres 1.3 mL in NaCl (PF) 0.9% 10 mL injection (DEFINITY) - sodium chloride 0.9 % (flush) 10 mL (BD POSIFLUSH) Problem List As Of Date 01/18/2023 Noted Resolved Hypertrophic obstructive cardiomyopathy (HCC) [*05/01/2015 AICD (automatic cardioverter/defibrillator) pre*05/01/2015 Atrial fibrillation (HCC) [I48.91] 05/01/2015 Hyperthyroidism [E05.90] 05/01/2015 DDD (degenerative disc disease), cervical [M50.*05/01/2015 Vertebral compression fracture (HCC) [M48.50XA] 05/01/2015 Other allergic rhinitis [J30.89] 05/01/2015 GERD (gastroesophageal reflux disease) [K21.9] 05/01/2015 S/P MVR (mitral valve repair) [Z98.890] 08/01/2020 Pulmonary hypertension (HCC) [I27.20] 08/01/2020 Essential hypertension [I10] 08/01/2020 History of transient ischemic attack (TIA) [Z86*08/01/2020 Diarrhea [R19.7] 08/01/2020 Osteopenia, senile [M85.80] 01/21/2021 Stage 3b chronic kidney disease (HCC) [N18.32] 01/21/2021 Hypoxia [R09.02] 09/14/2021 COVID [U07.1] 09/14/2021 09/17/2021 GI bleed [K92.2] 10/01/2021 Acute blood loss anemia [D62] 10/01/2021 NARCISO (acute kidney injury) (HCC) [N17.9] 10/01/2021 Malnutrition of mild degree (HCC) [E44.1] 10/03/2021 Malnutrition of moderate degree (HCC) [E44.0] 10/07/2021 Chronic gastric ulcer [K25.7] H/O mitral valve replacement [Z95.2] 05/11/2022 V tach (HCC) [I47.20] 05/11/2022 HOCM (hypertrophic obstructive cardiomyopathy) *05/11/2022 HTN (hypertension) [I10] 05/11/2022 ICD (implantable cardioverter-defibrillator) in*05/11/2022 Tachycardia [R00.0] 05/11/2022 TIA (transient ischemic attack) [G45.9] 05/11/2022 Encounter Status:Closed by VILMA CRESPO MA on 01/19/23 Normal [facility] PT panel Coag (PPP)on 2022 INR Coag (Bld) [Relative time] 2.1 {INR} Abnormal 2.5 - 3.5 [facility] CNPNon 01-12-2023 CNPN Telephone (FAMPWS) EM DANIEL ([id number]) 1955 F T Date Time Provider Department 01/12/23 YORDY ALLEN During your visit today, we recorded the following information about you: Celsa Jacobs Ma 01/12/2023 1:14 PM Signed Last INR: INR 1.5 01/12/2023 Current dose of coumadin is: 7.5 mg Mon, Wed, Fri and Sat 5 mg all other days. Last date of dose change: 12/08/22. Previous INR (date and result): 1.6 on 12/07/22 Additional Clinical Information or narrative: yes: Pt is very non compliant and self medicates her INR. Daughter is a Senior Lead Project Manager who's also instructed her on previous dosages. Update pt via [employer]. Celsa Allen MD 01/12/2023 5:03 PM Signed INR low at 1.5 If she is currently taking 7.5 mg Mon, Wed, Fri and Sat 5 mg all other days, she should go to 7.5 mg daily, except 5 mg on Wednesday Recheck in 1 week MD Celsa Auguste Ma 01/12/2023 5:04 PM Signed Mychart message sent to pt with instructions below. Asked pt to confirm what dosage she is taking. Wait pt response. Will update tracker once pt responds. Celsa Jacobs Ma 01/14/2023 5:08 PM Signed Pt wrote into office self medicating her dosage. Wrote in stating she was taking 7.5 mg 3 days a week, but increased it to 6 days a week and 5 on Wednesday. Pt advised by PCP via [employer] to take 7.5 mg every day and recheck in 2 weeks. Tracker updated. Celsa Jacobs Ma Allergies As of Date: 01/12/2023 (No Known Allergies) Date Reviewed: 12/15/2022 Reviewed by: Maya Vera MA - Fully Assessed Reason for Visit: Anticoagulation [8] Visit Diagnosis:Paroxysmal atrial fibrillation (HCC) [I48.0] Order(s):PROTHROMBIN TIME/PT [SQPT] Order #: [id number] Prescriptions as of 01/14/2023 - potassium chloride (K-TAB) 10 mEq tablet Take 1 tablet by mouth daily with breakfast. - pantoprazole DR (PROTONIX) 40 mg tablet Take 1 tablet by mouth once daily. - warfarin (COUMADIN) 5 mg tablet 7.5 mg M/W/F, 5 mg all other days or as directed - warfarin (COUMADIN) 1 mg tablet 7.5 mg M/W/F, 5 mg all other days or as directed - methIMAzole (TAPAZOLE) 5 mg tablet Take 0.5 tablets by mouth every other day. - spironolactone (ALDACTONE) 25 mg tablet Take 1 tablet by mouth twice daily. - torsemide (DEMADEX) 20 mg tablet Take 1 tablet by mouth three times daily. - metoprolol succinate ER (TOPROL XL) 50 mg 24 hr tablet Take 1 tablet by mouth once daily. - aspirin 81 mg chewable tablet Take 81 mg by mouth once daily. - multivitamin tablet Take 1 tablet by mouth once daily. Facility-Administered Medications as of 01/14/2023 - perflutren lipid microspheres 1.3 mL in NaCl (PF) 0.9% 10 mL injection (DEFINITY) - sodium chloride 0.9 % (flush) 10 mL (BD POSIFLUSH) - perflutren lipid microspheres 1.3 mL in NaCl (PF) 0.9% 10 mL injection (DEFINITY) - sodium chloride 0.9 % (flush) 10 mL (BD POSIFLUSH) Problem List As Of Date 01/12/2023 Noted Resolved Hypertrophic obstructive cardiomyopathy (HCC) [*05/01/2015 AICD (automatic cardioverter/defibrillator) pre*05/01/2015 Atrial fibrillation (HCC) [I48.91] 05/01/2015 Hyperthyroidism [E05.90] 05/01/2015 DDD (degenerative disc disease), cervical [M50.*05/01/2015 Vertebral compression fracture (HCC) [M48.50XA] 05/01/2015 Other allergic rhinitis [J30.89] 05/01/2015 GERD (gastroesophageal reflux disease) [K21.9] 05/01/2015 S/P MVR (mitral valve repair) [Z98.890] 08/01/2020 Pulmonary hypertension (HCC) [I27.20] 08/01/2020 Essential hypertension [I10] 08/01/2020 History of transient ischemic attack (TIA) [Z86*08/01/2020 Diarrhea [R19.7] 08/01/2020 Osteopenia, senile [M85.80] 01/21/2021 Stage 3b chronic kidney disease (HCC) [N18.32] 01/21/2021 Hypoxia [R09.02] 09/14/2021 COVID [U07.1] 09/14/2021 09/17/2021 GI bleed [K92.2] 10/01/2021 Acute blood loss anemia [D62] 10/01/2021 NARCISO (acute kidney injury) (HCC) [N17.9] 10/01/2021 Malnutrition of mild degree (HCC) [E44.1] 10/03/2021 Malnutrition of moderate degree (HCC) [E44.0] 10/07/2021 Chronic gastric ulcer [K25.7] H/O mitral valve replacement [Z95.2] 05/11/2022 V tach (HCC) [I47.20] 05/11/2022 HOCM (hypertrophic obstructive cardiomyopathy) *05/11/2022 HTN (hypertension) [I10] 05/11/2022 ICD (implantable cardioverter-defibrillator) in*05/11/2022 Tachycardia [R00.0] 05/11/2022 TIA (transient ischemic attack) [G45.9] 05/11/2022 Encounter Status:Closed by CELSA JACOBS MA on 01/14/23 Normal [facility] PT panel Coag (PPP)on 2022 INR Coag (Bld) [Relative time] 1.5 {INR} 2.5 - 3.5 [facility] Alxeander 12-21-2022 CNPN Telephone (CARDMN) EM DANIEL ([id number]) 1955 F CHT Date Time Provider Department 12/21/22 ONEYDA GUY During your visit today, we recorded the following information about you: Ricci Donovan RN 12/21/2022 11:42 AM Signed Returned call, no answer, left VM Allergies As of Date: 12/21/2022 (No Known Allergies) Date Reviewed: 12/15/2022 Reviewed by: Maya Vera MA - Fully Assessed Reason for Visit: Patient Update [1234] Cmt: Patient called states she is transferring care to [facility] and wants records transfer to that location. Please call her at [phone] Prescriptions as of 12/21/2022 - potassium chloride (K-TAB) 10 mEq tablet Take 1 tablet by mouth daily with breakfast. - pantoprazole DR (PROTONIX) 40 mg tablet Take 1 tablet by mouth once daily. - warfarin (COUMADIN) 5 mg tablet 7.5 mg M/W/F, 5 mg all other days or as directed - warfarin (COUMADIN) 1 mg tablet 7.5 mg M/W/F, 5 mg all other days or as directed - methIMAzole (TAPAZOLE) 5 mg tablet Take 0.5 tablets by mouth every other day. - spironolactone (ALDACTONE) 25 mg tablet Take 1 tablet by mouth twice daily. - torsemide (DEMADEX) 20 mg tablet Take 1 tablet by mouth three times daily. - metoprolol succinate ER (TOPROL XL) 50 mg 24 hr tablet Take 1 tablet by mouth once daily. - aspirin 81 mg chewable tablet Take 81 mg by mouth once daily. - multivitamin tablet Take 1 tablet by mouth once daily. Facility-Administered Medications as of 12/21/2022 - perflutren lipid microspheres 1.3 mL in NaCl (PF) 0.9% 10 mL injection (DEFINITY) - sodium chloride 0.9 % (flush) 10 mL (BD POSIFLUSH) - perflutren lipid microspheres 1.3 mL in NaCl (PF) 0.9% 10 mL injection (DEFINITY) - sodium chloride 0.9 % (flush) 10 mL (BD POSIFLUSH) Problem List As Of Date 12/21/2022 Noted Resolved Hypertrophic obstructive cardiomyopathy (HCC) [*05/01/2015 AICD (automatic cardioverter/defibrillator) pre*05/01/2015 Atrial fibrillation (HCC) [I48.91] 05/01/2015 Hyperthyroidism [E05.90] 05/01/2015 DDD (degenerative disc disease), cervical [M50.*05/01/2015 Vertebral compression fracture (HCC) [M48.50XA] 05/01/2015 Other allergic rhinitis [J30.89] 05/01/2015 GERD (gastroesophageal reflux disease) [K21.9] 05/01/2015 S/P MVR (mitral valve repair) [Z98.890] 08/01/2020 Pulmonary hypertension (HCC) [I27.20] 08/01/2020 Essential hypertension [I10] 08/01/2020 History of transient ischemic attack (TIA) [Z86*08/01/2020 Diarrhea [R19.7] 08/01/2020 Osteopenia, senile [M85.80] 01/21/2021 Stage 3b chronic kidney disease (HCC) [N18.32] 01/21/2021 Hypoxia [R09.02] 09/14/2021 COVID [U07.1] 09/14/2021 09/17/2021 GI bleed [K92.2] 10/01/2021 Acute blood loss anemia [D62] 10/01/2021 NARCISO (acute kidney injury) (HCC) [N17.9] 10/01/2021 Malnutrition of mild degree (HCC) [E44.1] 10/03/2021 Malnutrition of moderate degree (HCC) [E44.0] 10/07/2021 Chronic gastric ulcer [K25.7] H/O mitral valve replacement [Z95.2] 05/11/2022 V tach (HCC) [I47.20] 05/11/2022 HOCM (hypertrophic obstructive cardiomyopathy) *05/11/2022 HTN (hypertension) [I10] 05/11/2022 ICD (implantable cardioverter-defibrillator) in*05/11/2022 Tachycardia [R00.0] 05/11/2022 TIA (transient ischemic attack) [G45.9] 05/11/2022 Encounter Status:Closed by RICCI DONOVAN on 12/21/22 [facility] CNOVon 12-15-2022 CNOV Office Visit (ENDOSO ) EM DANIEL ([id number]) 1955 F CHT Date Time Provider Department 12/15/22 1:50 PM SANTINO PHAN During your visit today, we recorded the following information about you: Pulse Respiration Blood pressure Weight 71/minute 12/minute 115/63 59.6 kg Height 1.651 m Santino Phan MD 12/16/2022 7:22 AM Signed ENDOCRINOLOGY OUTPATIENT CONSULT NOTE Date of Consult: 12/15/2022 NAME: Em Daniel is a 66 year old old female PCP: Yordy Allen MD Reason for visit: Graves disease Impression / Plan / CC / HPI Impression Graves disease Atrial fibrillation Plan - continue methimazole 2.5 mg every other day. - TSH, FT4, FT3 in today. If normal, then again in 6 months Follow-up in 6-month. --------- YOON Em Daniel is a 67 year old old female presenting for Graves' disease follow-up. Patient is not a good historian. She appears to have some degree of cognitive impairment. Past medical history is significant for history of hypertrophic cardiomyopathy, treated with surgical septal myectomy and mitral valve replacement with a mechanical mitral valve. Other sequela of hypertrophic cardiomyopathy include atrial fibrillation, treated with catheter ablation. She is currently on rhythm control strategy with dofetilide and on anticoagulation for stroke prevention in atrial fibrillation with an oral vitamin K antagonist, warfarin She was diagnosed with Graves disease initially in 2014 or so. She was treated with methimazole for 3-4 years, then stopped. She had hyperthyroid again in 2019, and then methimazole was restarted. She remained on methimazole since then. Noted she had positive TSI on 05/01/2020. Methimazole dose has been adjusted over years. She remains euthyroid on a small dose of methimazole 2.5 mg every other day since February 2022. Repeated TSI 06/08/22 was negative. The daughter, who is a sports physical therapist, expressed her concern that her A. fib may worsen if we stop methimazole. So we leave her on this small dose of methimazole. Of note, she had neck ultrasound done from outside on 05/16/2020, which mention right thyroid nodule 1.1 cm, is measured to 1.3 cm, and 2 left thyroid nodule (1.1 and 1.2 cm). We do not have the picture of this thyroid ultrasound. I did in-office neck ultrasound 05/2022, which did not show any nodules. INTERVAL She denies palpitation or chest pain. However, she continues to lose weight. Partially this may be due to diuresis. She remains on methimazole 2.5 mg every other day. She continues to have cold intolerance. Component Latest Ref Rng AND Units 10/13/2022 TSH 0.270 - 4.200 mIU/L 0.994 Free T4 0.9 - 1.7 ng/dL 1.5 Free T3 2.3 - 4.1 pg/mL 3.1 Medications Current Outpatient Medications on File Prior to Visit Medication Sig warfarin (COUMADIN) 5 mg tablet 5 mg Wed/Wed, 2.5 mg all other days or as directed furosemide (LASIX) 40 mg tablet Take 0.5 tablets by mouth twice daily. metoprolol succinate ER (TOPROL XL) 50 mg 24 hr tablet Take 1 tablet by mouth once daily. pantoprazole DR (PROTONIX) 40 mg tablet Take 1 tablet by mouth once daily. methIMAzole (TAPAZOLE) 5 mg tablet Take 1 tablet by mouth once daily. potassium chloride (K-TAB) 10 mEq tablet Take 1 tablet by mouth daily with breakfast. aspirin 81 mg chewable tablet Take 81 mg by mouth once daily. multivitamin tablet Take 1 tablet by mouth once daily. Current Facility-Administered Medications on File Prior to Visit Medication perflutren lipid microspheres 1.3 mL in NaCl (PF) 0.9% 10 mL injection (DEFINITY) sodium chloride 0.9 % (flush) 10 mL (BD POSIFLUSH) perflutren lipid microspheres 1.3 mL in NaCl (PF) 0.9% 10 mL injection (DEFINITY) sodium chloride 0.9 % (flush) 10 mL (BD POSIFLUSH) perflutren lipid microspheres 1.3 mL in NaCl (PF) 0.9% 10 mL injection (DEFINITY) sodium chloride 0.9 % (flush) 10 mL (BD POSIFLUSH) Allergies ALLERGIES No Known Allergies Medical / Surgical PAST MEDICAL HISTORY Diagnosis Date Atrial fibrillation (HCC) Chronic gastric ulcer GERD (gastroesophageal reflux disease) H/O mitral valve replacement mechanical valve H/O myomectomy cardiac HOCM (hypertrophic obstructive cardiomyopathy) (HCC) HTN (hypertension) Hypertrophic cardiomyopathy (HCC) ICD (implantable cardioverter-defibrillator) in place Palpitations Tachycardia TIA (transient ischemic attack) history of V tach PAST SURGICAL HISTORY Procedure Laterality Date AICD, DUAL CHAMBER 2007 EGD BIOPSY SING OR MULT 10/03/2021 2 gastric ulcers; atrophic fundus of stomach HYSTERECTOMY HX KRUGER W/O FACETEC FORAMOT/DSC 09/14 VRT SGM CRV 1995 DISCECTOMY. Laminectomy, cervical STAB PHLEBECTOMY VARICOSE VEIN (more content not included)... Normal [facility] T3Free SerPl-mCncon 12-16-19 23 Free T3 [Mass/Vol] 2.6 pg/mL Normal 2.3-4.[address] [facility] Comment on above: Order Comment: Speci men Type: BLOOD SPECIMENOrdering Facility: [facility] Address: [address] [place] [address] Performed By: #### 3 024-7, 6-3, 305-0 ####[facility] LABIA [id number] [place] [address] [place] T4 Free SerPl-mCncon 023 Free T4 [Mass/Vol] 1.6 ng/dL Normal 0.9-1.[address] [facility] Comment on above: Order Comment: Speci men Type: BLOOD SPECIMENOrdering Facility: [facility] Address: [address] [place] [address] Performed By: #### 3 024-7, 3016-3, 305-0 ####[facility] LABIA [id number] [address] [place] TSH SerPl-aCncon 12-15-2022 TSH Qn 1.080 m[IU]/L Normal 0.270-4.200 [facility] Comment on above: Order Comment: Speci men Type: BLOOD SPECIMENOrdering Facility: [facility] Address: [address] [place] [address] Performed By: #### 3 024-7, 3016-3, 305-0 ####[facility] LABIA [id number] [place] [address] [place] CNPNon 12-08-2022 CNPN Telephone (FAMWS) BRYCEEM Marcelino ([id number]) 1955 F CHT Date Time Provider Department 12/08/22 YORDY ALLEN During your visit today, we recorded the following information about you: Vilma Zak Maynard 12/08/2022 3:01 PM Signed Last INR: INR 1.6 12/08/2022 Current dose of coumadin is: 7.5 mg M/W/F, 5 mg all other days. Last date of dose change: 11/17/22. Previous INR (date and result): 11/16/22 INR: 1.7 Additional Clinical Information or narrative: no Yordy Allen MD 12/08/2022 3:20 PM Signed INR low at 1.6 Go to 7.5 mg M/W/F/Sat, 5 mg all other days Recheck in 2 weeks Celsa Jacobs Ma 12/08/2022 3:31 PM Signed Called and left message on patients voicemail to return call to the office and ask to speak with a triage nurse. [place] message sent to pt notifying her of instructions below. Asked pt to make office aware message was received. Tracker updated. Celsa Jacobs Ma 12/10/2022 8:09 AM Signed Pt wrote back into the office, verbalized understanding. Celsa Jacobs Ma Allergies As of Date: 12/08/2022 (No Known Allergies) Date Reviewed: 10/09/2022 Reviewed by: Julia Mcgowan Ma - Fully Assessed Reason for Visit: Anticoagulation [8] Visit Diagnosis:Paroxysmal atrial fibrillation (HCC) [I48.0] Order(s):PROTHROMBIN TIME/PT [SQPT] Order #: [id number] Prescriptions as of 12/10/2022 - potassium chloride (K-TAB) 10 mEq tablet Take 1 tablet by mouth daily with breakfast. - pantoprazole DR (PROTONIX) 40 mg tablet Take 1 tablet by mouth once daily. - warfarin (COUMADIN) 5 mg tablet 7.5 mg M/W/F, 5 mg all other days or as directed - warfarin (COUMADIN) 1 mg tablet 7.5 mg //, 5 mg all other days or as directed - methIMAzole (TAPAZOLE) 5 mg tablet Take 0.5 tablets by mouth every other day. - spironolactone (ALDACTONE) 25 mg tablet Take 1 tablet by mouth twice daily. - torsemide (DEMADEX) 20 mg tablet Take 1 tablet by mouth three times daily. - metoprolol succinate ER (TOPROL XL) 50 mg 24 hr tablet Take 1 tablet by mouth once daily. - aspirin 81 mg chewable tablet Take 81 mg by mouth once daily. - multivitamin tablet Take 1 tablet by mouth once daily. Facility-Administered Medications as of 12/10/2022 - perflutren lipid microspheres 1.3 mL in NaCl (PF) 0.9% 10 mL injection (DEFINITY) - sodium chloride 0.9 % (flush) 10 mL (BD POSIFLUSH) - perflutren lipid microspheres 1.3 mL in NaCl (PF) 0.9% 10 mL injection (DEFINITY) - sodium chloride 0.9 % (flush) 10 mL (BD POSIFLUSH) Problem List As Of Date 12/08/2022 Noted Resolved Hypertrophic obstructive cardiomyopathy (HCC) [*05/01/2015 AICD (automatic cardioverter/defibrillator) pre*05/01/2015 Atrial fibrillation (HCC) [I48.91] 05/01/2015 Hyperthyroidism [E05.90] 05/01/2015 DDD (degenerative disc disease), cervical [M50.*05/01/2015 Vertebral compression fracture (HCC) [M48.50XA] 05/01/2015 Other allergic rhinitis [J30.89] 05/01/2015 GERD (gastroesophageal reflux disease) [K21.9] 05/01/2015 S/P MVR (mitral valve repair) [Z98.890] 08/01/2020 Pulmonary hypertension (HCC) [I27.20] 08/01/2020 Essential hypertension [I10] 08/01/2020 History of transient ischemic attack (TIA) [Z86*08/01/2020 Diarrhea [R19.7] 08/01/2020 Osteopenia, senile [M85.80] 01/21/2021 Stage 3b chronic kidney disease (HCC) [N18.32] 01/21/2021 Hypoxia [R09.02] 09/14/2021 COVID [U07.1] 09/14/2021 09/17/2021 GI bleed [K92.2] 10/01/2021 Acute blood loss anemia [D62] 10/01/2021 NARCISO (acute kidney injury) (HCC) [N17.9] 10/01/2021 Malnutrition of mild degree (HCC) [E44.1] 10/03/2021 Malnutrition of moderate degree (HCC) [E44.0] 10/07/2021 Chronic gastric ulcer [K25.7] H/O mitral valve replacement [Z95.2] 05/11/2022 V tach (HCC) [I47.20] 05/11/2022 HOCM (hypertrophic obstructive cardiomyopathy) *05/11/2022 HTN (hypertension) [I10] 05/11/2022 ICD (implantable cardioverter-defibrillator) in*05/11/2022 Tachycardia [R00.0] 05/11/2022 TIA (transient ischemic attack) [G45.9] 05/11/2022 Encounter Status:Closed by CELSA JACOBS MA on 12/10/22 Normal [facility] PT panel Coag (PPP)on 2022 INR Coag (Bld) [Relative time] 1.6 {INR} Abnormal 2.5 - 3.5 [facility] CNPNon 11-17-2022 CNPN Telephone (FAMWS) EM DANIEL ([id number]) 1955 F CHT Date Time Provider Department 11/17/22 [facility] During your visit today, we recorded the following information about you: Lita Washington MA 11/17/2022 12:57 PM Signed Recent Labs 11/16/22 0000 INR 1.7* Pt currently taking 7.5 mg Mon and Thurs; 5 mg all other days. Please review and advise. RYLEE Modi MD 11/17/2022 3:14 PM Signed INR a little low at 1.7 Go to 7.5 mg on Mon, Weds, Fri; 5 mg all other days Recheck in 2 weeks MD Vilma Auguste Ma 11/17/2022 3:37 PM Signed Pt notified and voiced understanding. Tracker and med list updated. Allergies As of Date: 11/17/2022 (No Known Allergies) Date Reviewed: 10/09/2022 Reviewed by: Julia Mcgowan Ma - Fully Assessed Reason for Visit: Anticoagulation [8] Cmt: Visit Diagnoses:Paroxysmal atrial fibrillation (HCC) [I48.0] AICD (automatic cardioverter/defibrillator) present [Z95.810] Order(s):PROTHROMBIN TIME/PT [SQPT] Order #: [id number] Prescriptions as of 11/17/2022 - warfarin (COUMADIN) 5 mg tablet 7.5 mg M/W/F, 5 mg all other days or as directed - warfarin (COUMADIN) 1 mg tablet 7.5 mg M/W/F, 5 mg all other days or as directed - methIMAzole (TAPAZOLE) 5 mg tablet Take 0.5 tablets by mouth every other day. - spironolactone (ALDACTONE) 25 mg tablet Take 1 tablet by mouth twice daily. - torsemide (DEMADEX) 20 mg tablet Take 1 tablet by mouth three times daily. - metoprolol succinate ER (TOPROL XL) 50 mg 24 hr tablet Take 1 tablet by mouth once daily. - pantoprazole DR (PROTONIX) 40 mg tablet Take 1 tablet by mouth once daily. - aspirin 81 mg chewable tablet Take 81 mg by mouth once daily. - multivitamin tablet Take 1 tablet by mouth once daily. Facility-Administered Medications as of 11/17/2022 - perflutren lipid microspheres 1.3 mL in NaCl (PF) 0.9% 10 mL injection (DEFINITY) - sodium chloride 0.9 % (flush) 10 mL (BD POSIFLUSH) - perflutren lipid microspheres 1.3 mL in NaCl (PF) 0.9% 10 mL injection (DEFINITY) - sodium chloride 0.9 % (flush) 10 mL (BD POSIFLUSH) Problem List As Of Date 11/17/2022 Noted Resolved Hypertrophic obstructive cardiomyopathy (HCC) [*05/01/2015 AICD (automatic cardioverter/defibrillator) pre*05/01/2015 Atrial fibrillation (HCC) [I48.91] 05/01/2015 Hyperthyroidism [E05.90] 05/01/2015 DDD (degenerative disc disease), cervical [M50.*05/01/2015 Vertebral compression fracture (HCC) [M48.50XA] 05/01/2015 Other allergic rhinitis [J30.89] 05/01/2015 GERD (gastroesophageal reflux disease) [K21.9] 05/01/2015 S/P MVR (mitral valve repair) [Z98.890] 08/01/2020 Pulmonary hypertension (HCC) [I27.20] 08/01/2020 Essential hypertension [I10] 08/01/2020 History of transient ischemic attack (TIA) [Z86*08/01/2020 Diarrhea [R19.7] 08/01/2020 Osteopenia, senile [M85.80] 01/21/2021 Stage 3b chronic kidney disease (HCC) [N18.32] 01/21/2021 Hypoxia [R09.02] 09/14/2021 COVID [U07.1] 09/14/2021 09/17/2021 GI bleed [K92.2] 10/01/2021 Acute blood loss anemia [D62] 10/01/2021 NARCISO (acute kidney injury) (HCC) [N17.9] 10/01/2021 Malnutrition of mild degree (HCC) [E44.1] 10/03/2021 Malnutrition of moderate degree (HCC) [E44.0] 10/07/2021 Chronic gastric ulcer [K25.7] H/O mitral valve replacement [Z95.2] 05/11/2022 V tach (HCC) [I47.20] 05/11/2022 HOCM (hypertrophic obstructive cardiomyopathy) *05/11/2022 HTN (hypertension) [I10] 05/11/2022 ICD (implantable cardioverter-defibrillator) in*05/11/2022 Tachycardia [R00.0] 05/11/2022 TIA (transient ischemic attack) [G45.9] 05/11/2022 Medications Discontinued During This Encounter Prescriptions - warfarin (COUMADIN) 5 mg tablet (Discontinued) Take 2.5 mg daily or as directed - warfarin (COUMADIN) 1 mg tablet (Discontinued) Take 2.5 mg daily or as directed Encounter Status:Closed by VILMA CRESPO MA on 11/17/22 Normal [facility] PT panel Coag (PPP)on 2022 INR Coag (Bld) [Relative time] 1.7 {INR} Abnormal 2.5 - 3.5 [facility] PT panel Coag (PPP)on 2022 INR Coag (Bld) [Relative time] 1.6 {INR} Abnormal 2.5 - 3.5 [facility] PT panel Coag (PPP)on 2022 INR Coag (Bld) [Relative time] 3.8 {INR} Abnormal 2.5 - 3.5 [facility] Basophil percentageOrdered B y: Dr. Barajas on 10-30-2022 Bilirubin [Mass/Vol] 2.30 mg/dL 0.20-1.00 [facility] Comment on above: For patients on eltr ombopag therapy, use of Dimension [place] TBIL is not recommended. Chloride [Moles/Vol] 106 mmol/L 98-107 [facility] Cholesterol [Mass/Vol] 93 mg/dL <200 [facility] Comment on above: <200 mg/dL Desirable 200-240 mg/dL Borderline >240 mg/dL High Risk Glucose [Mass/Vol] 100 mg/dL 74-106 [facility] Comment on above: Fasting Glucose resu lt from 100 to 125 mg/dL suggests IMPAIRED HOMEOSTASIS per A.D.A. criteria. Potassium [Moles/Vol] 3.9 mmol/L 3.5-5.1 [facility] Protein [Mass/Vol] 7.6 g/dL 6.4-8.2 [facility] Sodium [Moles/Vol] 139 mmol/L 136-145 [facility] Triglyceride [Mass/Vol] 154 mg/dL <199 [facility] Comment on above: The drugs N-Acetylcy steine and Metamizole may falsely depress this assay.Serum Triglycerides Reference Interval Normal <150 mg/dL Borderline high 150 - 199 mg/dL High 200 - 499 mg/dL Very High > or = 500 mg/dL Direct bilirubinOrdered By: Dr. Barajas on 10-30-2022 Bilirubin.direct [Mass/Vol] 0.89 mg/dL 0.00-0.30 [facility] Laboratory - Chemistry and C hemistry - challengeOrdered By: Dr. Barajas on 10-30-2022 ALP [Catalytic activity/Vol] 132 U/L 45-117 [facility] ALT [Catalytic activity/Vol] 28 U/L 13-56 [facility] CO2 [Moles/Vol] 25.0 mmol/L 21.0-32.0 [facility] Globulin (S) [Mass/Vol] 3.9 g/dL 2.2-4.2 [facility] Magnesium [Mass/Vol] 2.3 mg/dL 1.6-2.6 [facility] Urea nitrogen/Creatinine [Mass ratio] 23.3 mg/mg 10-20 [facility] No Panel InformationOrdered By: Dr. Barajas on 10-30-2022 Estimated GFR (MDRD) Amer 38 mL/min >60 [facility] Comment on above: GFR Calc Estimated GFR (MDRD) Non-Af Amer 31 mL/min >60 [facility] Comment on above: Non- GFR Calc Serum or plasma albumin radha urement (mass/volume)Ordered By: Dr. Barajas on 10-30-2022 Albumin [Mass/Vol] 3.7 g/dL 3.2-5.0 [facility] Serum or plasma calcium radha urement (mass/volume)Ordered By: Dr. Barajas on 10-30-2022 Calcium [Mass/Vol] 9.1 mg/dL 8.5-10.1 [facility] Serum or plasma cholesterol in HDL measurement (mass/volume)Ordered By: Dr. Barajas on 10-30-2022 Cholesterol in HDL [Mass/Vol] 43 mg/dL >40 [facility] Comment on above: The drugs N-Acetylcy steine and Metamizole may falsely depress this assay. Reference Range HDL <40 mg/dL Low HDL Cholesterol HDL >or= 60 mg/dL High HDL Cholesterol Serum or plasma cholesterol in VLDL measurement (mass/volume)Ordered By: Dr. Barajas on 10-30-2022 Cholesterol in VLDL [Mass/Vol] 31 mg/dL 5-40 [facility] Serum or plasma creatinine m easurement (mass/volume)Ordered By: Dr. Barajas on 10-30-2022 Creatinine [Mass/Vol] 1.72 mg/dL 0.55-1.02 [facility] Comment on above: The validity of the calculated GFR & GFRAA in patients over 70 years has not been determined. Clinical correlation is essential. Serum or plasma low density lipoprotein (LDL) cholesterol measurement (mass/volume)Ordered By: Dr. Barajas on 10-30-2022 Cholesterol in LDL [Mass/Vol] 19 mg/dL 0-130 [facility] Serum or plasma urea nitroge n measurement (mass/volume)Ordered By: Dr. Barajas on 10-30-2022 Urea nitrogen [Mass/Vol] 40 mg/dL 7-18 [facility] Thin prep Papanicolaou smear with manual screeningOrdered By: Dr. Barajas on 10-30-2022 Thin prep Papanicolaou smear with manual screening 33 U/L 15-37 [facility] Thin prep Papanicolaou smear with manual screening 8 5-15 [facility] PT panel Coag (PPP)on 2022 INR Coag (Bld) [Relative time] 2.2 {INR} Abnormal 2.5 - 3.5 [facility] PT panel Coag (PPP)on 2022 INR Coag (Bld) [Relative time] 2.5 {INR} 2.5 - 3.5 [facility] Absolute lymphocyte countOrd ered By: Dr. Wen on 09-22-2022 Lymphocytes Auto (Unsp spec) [#/Vol] 1.08 10*3/uL 0.83-4.51 [facility] Basophil percentageOrdered B y: Dr. Wen on 09-22-2022 Basophils/100 WBC (Bld) 0.4 % 0-1 [facility] Chloride [Moles/Vol] 106 mmol/L 98-107 [facility] Eosinophils/100 WBC (Bld) 0.8 % 0-5 [facility] Glucose [Mass/Vol] 107 mg/dL 74-106 [facility] Comment on above: Fasting Glucose resu lt from 100 to 125 mg/dL suggests IMPAIRED HOMEOSTASIS per A.D.A. criteria. Neutrophils (Bld) [#/Vol] 10.6 10*3/uL 2.0-7.7 [facility] Neutrophils/100 WBC (Bld) 77.9 % 47-70 [facility] Potassium [Moles/Vol] 4.0 mmol/L 3.5-5.1 [facility] Sodium [Moles/Vol] 138 mmol/L 136-145 [facility] WBC (Bld) [#/Vol] 13.6 10*3/uL 4.4-11.0 [facility] Blood erythrocytes count (nu mber/volume)Ordered By: Dr. Wen on 09-22-2022 RBC (Bld) [#/Vol] 4.74 10*6/uL 4.2-5.4 [facility] Blood hemoglobin measurement (mass/volume)Ordered By: Dr. Wen on 09-22-2022 Hemoglobin (Bld) [Mass/Vol] 10.5 g/dL 12.0-15.0 [facility] Blood lymphocytes/100 leukoc ytesOrdered By: Dr. Wen on 09-22-2022 Lymphocytes/100 WBC (Bld) 8.0 % 19-41 [facility] Blood manual differential co mment interpretation (narrative result)Ordered By: Dr. Wen on 09-22-2022 Manual differential comment Nima (Bld) [Interp] SCANNED [facility] Blood monocytes/100 leukocyt esOrdered By: Dr. Wen on 09-22-2022 Monocytes/100 WBC (Bld) 12.2 % 0-10 [facility] Blood platelet mean volumeOr dered By: Dr. Wen on 09-22-2022 Platelet mean volume (Bld) [Entitic vol] 9.9 fL 6.2-12.0 [facility] Blood polychromasia detectio n by light microscopyOrdered By: Dr. Wen on 09-22-2022 Polychromasia LM Ql (Bld) 1+ [facility] Determination of erythrocyte mean corpuscular volume (MCV)Ordered By: Dr. Wen on 09-22-2022 MCV (RBC) [Entitic vol] 79.3 fL 81-99 [facility] Hematocrit Auto (Bld) [Volum e fraction]Ordered By: Dr. Wen on 09-22-2022 Hematocrit (Bld) [Volume fraction] 37.6 % 37-47 [facility] INR in Blood by Coagulation assayOrdered By: Dr. Stahl on 09-22-2022 INR Coag (Bld) [Relative time] 3.0 {INR} [facility] - Chemistry and C hemistry - challengeOrdered By: Dr. Wen on 09-22-2022 CO2 [Moles/Vol] 24.0 mmol/L 21.0-32.0 [facility] Urea nitrogen/Creatinine [Mass ratio] 21.1 mg/mg 10-20 [facility] - CoagulationOrde red By: Dr. Stahl on 09-22-2022 PT Coag (PPP) [Time] 31.1 s 11.7-14.9 [facility] - Hematology and Cell countsOrdered By: Dr. Wen on 09-22-2022 Anisocytosis Ql (Bld) 2+ [facility] Erythrocyte distribution width (RBC) [Entitic vol] 58.4 fL 35.1-43.9 [facility] Erythrocyte distribution width (RBC) [Ratio] 21.2 % 11.6-14.6 [facility] Immature granulocytes/100 WBC (Bld) 0.700 % 0.0-0.9 [facility] Comment on above: IG% - Immature Granu locytes (promyelocytes, myelocytes and metamyelocytes) > 1% indicates that a LEFT SHIFT is Present. MCH (RBC) [Entitic mass] 22.2 pg 27.0-32.0 [facility] Nucleated RBC/100 WBC (Bld) [Ratio] 0 % 0-5 [facility] MCHC Auto (RBC) [Mass/Vol]Or dered By: Dr. Wen on 09-22-2022 MCHC (RBC) [Mass/Vol] 27.9 g/dL 32-36 [facility] Macrocytes detectionOrdered By: Dr. Wen on 09-22-2022 Macrocytes Ql (Bld) 1+ [facility] No Panel InformationOrdered By: Dr. Wen on 09-22-2022 Estimated Creatinine Clearance Calc 39.94 ml/min [facility] Estimated GFR (MDRD) Amer 56 mL/min >60 [facility] Comment on above: GFR Calc Estimated GFR (MDRD) Non-Af Amer 46 mL/min >60 [facility] Comment on above: Non- GFR Calc Ovalocyte detectionOrdered B y: Dr. Wen on 09-22-2022 Ovalocytes LM Ql (Bld) RARE [facility] Platelets bldOrdered By: Dr. Wen on 09-22-2022 Platelets (Bld) [#/Vol] 248 10*3/uL 150-450 [facility] Review by pathologistOrdered By: Dr. Wen on 09-22-2022 Pathologist review Nima (Unsp spec) [Interp] Reviewed [facility] Comment on above: Previous reported re sult: Leigh betancourt Edited by: MADELEINE on 09/22/22:1530Neutrophilic leukocytosis.Microcytic anemia.Clinical correlation necessary.Luis Gipson M.D. 09/22/22 AMENDED REPORT 09/22/22 1530 PATH REV previously reported as: Leigh betancourt Serum or plasma calcium radha urement (mass/volume)Ordered By: Dr. Wen on 09-22-2022 Calcium [Mass/Vol] 9.5 mg/dL 8.5-10.1 [facility] Serum or plasma creatinine m easurement (mass/volume)Ordered By: Dr. Wen on 09-22-2022 Creatinine [Mass/Vol] 1.23 mg/dL 0.55-1.02 [facility] Comment on above: The validity of the calculated GFR & GFRAA in patients over 70 years has not been determined. Clinical correlation is essential. Serum or plasma urea nitroge n measurement (mass/volume)Ordered By: Dr. Wen on 09-22-2022 Urea nitrogen [Mass/Vol] 26 mg/dL 7-18 [facility] Thin prep Papanicolaou smear with manual screeningOrdered By: Dr. Wen on 09-22-2022 Thin prep Papanicolaou smear with manual screening 1+ [facility] Thin prep Papanicolaou smear with manual screening 8 5-15 [facility] Basophil percentageOrdered B y: Dr. Stahl on 09-21-2022 Bilirubin [Mass/Vol] 3.30 mg/dL 0.20-1.00 [facility] Comment on above: For patients on eltr ombopag therapy, use of Dimension [place] TBIL is not recommended. Protein [Mass/Vol] 6.8 g/dL 6.4-8.2 [facility] Hypochromatic red blood cell detectionOrdered By: Dr. Stahl on 09-21-2022 Hypochromia Ql (Bld) 1+ [facility] - Chemistry and C hemistry - challengeOrdered By: Dr. Stahl on 09-21-2022 ALP [Catalytic activity/Vol] 102 U/L 45-117 [facility] ALT [Catalytic activity/Vol] 25 U/L 13-56 [facility] Globulin (S) [Mass/Vol] 3.7 g/dL 2.2-4.2 [facility] No Panel InformationOrdered By: Dr. Stahl on 09-21-2022 Thyroid Stimulating Hormone (TSH) 1.00 uIU/mL 0.358-3.74 [facility] Serum or plasma albumin radha urement (mass/volume)Ordered By: Dr. Stahl on 09-21-2022 Albumin [Mass/Vol] 3.1 g/dL 3.2-5.0 [facility] Serum or plasma albumin/glob ulin mass ratioOrdered By: Dr. Stahl on 09-21-2022 Albumin/Globulin [Mass ratio] 0.8 {ratio} 0.9-2.4 [facility] Thin prep Papanicolaou smear with manual screeningOrdered By: Dr. Stahl on 09-21-2022 Thin prep Papanicolaou smear with manual screening 25 U/L 15-37 [facility] Absolute lymphocyte counton 09-20-2022 Lymphocytes Auto (Unsp spec) [#/Vol] 1.13 10*3/uL 0.83-4.51 [facility] Work Phone: Basophil percentageon 2022 Basophils/100 WBC (Bld) 0.2 % 0-1 [facility] Work Phone: Chloride [Moles/Vol] 106 mmol/L 98-107 [facility] Work Phone: Eosinophils/100 WBC (Bld) 0.2 % 0-5 [facility] Work Phone: Glucose [Mass/Vol] 154 mg/dL 74-106 [facility] Work Phone: Comment on above: Fasting Glucose resu lt greater than or equal to 126 mg/dL suggests DIABETES MELLITUS per A.D.A. criteria. Neutrophils (Bld) [#/Vol] 9.5 10*3/uL 2.0-7.7 [facility] Work Phone: Neutrophils/100 WBC (Bld) 74.1 % 47-70 [facility] Work Phone: Potassium [Moles/Vol] 3.3 mmol/L 3.5-5.1 [facility] Work Phone: Sodium [Moles/Vol] 140 mmol/L 136-145 [facility] Work Phone: WBC (Bld) [#/Vol] 12.8 10*3/uL 4.4-11.0 [facility] Work Phone: Blood erythrocytes count (nu mber/volume)on 09-20-2022 RBC (Bld) [#/Vol] 4.80 10*6/uL 4.2-5.4 [facility] Work Phone: Blood hemoglobin measurement (mass/volume)on 09-20-2022 Hemoglobin (Bld) [Mass/Vol] 10.5 g/dL 12.0-15.0 [facility] Work Phone: Blood lymphocytes/100 leukoc yteson 09-20-2022 Lymphocytes/100 WBC (Bld) 8.9 % 19-41 [facility] Work Phone: Blood manual differential co mment interpretation (narrative result)on 09-20-2022 Manual differential comment Nima (Bld) [Interp] SCANNED [facility] Work Phone: Comment on above: 1+ ANISOCYTOSIS MONO CYTOSIS NOTED Blood monocytes/100 leukocyt eson 09-20-2022 Monocytes/100 WBC (Bld) 16.1 % 0-10 [facility] Work Phone: Blood platelet mean volumeon 09-20-2022 Platelet mean volume (Bld) [Entitic vol] 9.2 fL 6.2-12.0 [facility] Work Phone: Determination of erythrocyte mean corpuscular volume (MCV)on 09-20-2022 MCV (RBC) [Entitic vol] 77.5 fL 81-99 [facility] Work Phone: Hematocrit Auto (Bld) [Volum e fraction]on 09-20-2022 Hematocrit (Bld) [Volume fraction] 37.2 % 37-47 [facility] Work Phone: INR in Blood by Coagulation assayon 09-20-2022 INR Coag (Bld) [Relative time] 2.5 {INR} [facility] Work Phone: Laboratory - Chemistry and C hemistry - challengeon 09-20-2022 CO2 [Moles/Vol] 26.0 mmol/L 21.0-32.0 [facility] Work Phone: Urea nitrogen/Creatinine [Mass ratio] 20.8 mg/mg 10-20 [facility] Work Phone: Laboratory - Chemistry and C hemistry - challengeOrdered By: Dr. Reeves on 09-20-2022 Natriuretic peptide B (Bld) [Mass/Vol] 1464.0 pg/mL 0-100 [facility] - Coagulationon 0 09-20-2022 PT Coag (PPP) [Time] 27.1 s 11.7-14.9 [facility] Work Phone: Laboratory - Hematology and Cell countson 09-20-2022 Erythrocyte distribution width (RBC) [Entitic vol] 56.7 fL 35.1-43.9 [facility] Work Phone: Erythrocyte distribution width (RBC) [Ratio] 21.1 % 11.6-14.6 [facility] Work Phone: Immature granulocytes/100 WBC (Bld) 0.500 % 0.0-0.9 [facility] Work Phone: Comment on above: IG% - Immature Granu locytes (promyelocytes, myelocytes and metamyelocytes) > 1% indicates that a LEFT SHIFT is Present. MCH (RBC) [Entitic mass] 21.9 pg 27.0-32.0 [facility] Work Phone: Nucleated RBC/100 WBC (Bld) [Ratio] 0 % 0-5 [facility] Work Phone: MCHC Auto (RBC) [Mass/Vol]on 09-20-2022 MCHC (RBC) [Mass/Vol] 28.2 g/dL 32-36 [facility] Work Phone: No Panel InformationOrdered By: Dr. Stahl on 09-20-2022 Troponin I High Sensitivity 1472 pg/mL 3.0-54.0 [facility] Comment on above: Critical Result(s) Binta dalton at: 01:29:46 09/21/2022 by: JULIA FIELDS to EDUARDO GUALLPA. Results read back by same. Please Note: New Test Units and Gender Specific Reference Ranges. For more information see Policy Stat Procedure [place] High Sensitivity Troponin (TNIH) and attachments. No Panel Informationon 09-20 Troponin I High Sensitivity 1535 pg/mL 3.0-54.0 [facility] Work Phone: Comment on above: Critical Result(s) Binta Ortiz at: 20:32:53 09/20/2022 by: Brennen. Results read back by same. Please Note: New Test Units and Gender Specific Reference Ranges. For more information see Policy Stat Procedure [place] High Sensitivity Troponin (TNIH) and attachments. Estimated Creatinine Clearance Calc 40.94 ml/min [facility] Work Phone: Estimated GFR (MDRD) Amer 58 mL/min >60 [facility] Work Phone: Comment on above: GFR Calc Estimated GFR (MDRD) Non-Af Amer 48 mL/min >60 [facility] Work Phone: Comment on above: Non- GFR Calc Platelets bldon 09-20-2022 Platelets (Bld) [#/Vol] 237 10*3/uL 150-450 [facility] Work Phone: Serum or plasma calcium radha urement (mass/volume)on 09-20-2022 Calcium [Mass/Vol] 8.9 mg/dL 8.5-10.1 [facility] Work Phone: Serum or plasma creatinine m easurement (mass/volume)on 09-20-2022 Creatinine [Mass/Vol] 1.20 mg/dL 0.55-1.02 [facility] Work Phone: Comment on above: The validity of the calculated GFR & GFRAA in patients over 70 years has not been determined. Clinical correlation is essential. Serum or plasma urea nitroge n measurement (mass/volume)on 09-20-2022 Urea nitrogen [Mass/Vol] 25 mg/dL 7-18 [facility] Work Phone: Thin prep Papanicolaou smear with manual screeningon 09-20-2022 Thin prep Papanicolaou smear with manual screening 8 5-15 [facility] Work Phone: PT panel Coag (PPP)on 2022 INR Coag (Bld) [Relative time] 4.0 {INR} Abnormal 2.5 - 3.5 [facility] PT panel Coag (PPP)on 2022 INR Coag (Bld) [Relative time] 7.9 {INR} Abnormal 2.5 - 3.5 [facility] ICD REMOTE CHECKon 2 AV Delay Adaptive Paced Minimum (ms) 230 ms [facility] AV Delay Paced (ms) 150 ms [facility] Bennie LV Pacing Amplitude (volts) 2.8 V [facility] Bennie LV Pacing Pulse Width (ms) 0.4 ms [facility] bennie LV Sensing Amplitude (mvolts) 1 mV [facility] Bennie RA Pacing Amplitude (volts) 4.5 V [facility] Bennie RA Pacing Polarity BI [facility] Bennie RA Pacing Pulse Width (ms) 0.4 ms [facility] Bennie RA Sensing Amplitude (mvolts) 0.3 mV [facility] Bennie RA Sensing Polarity BI [facility] Bennie RV Pacing Amplitude (volts) 2.6 V [facility] Bennie RV Pacing Polarity BI [facility] Bennie RV Pacing Pulse Width (ms) 0.4 ms [facility] Bennie RV Sensing Amplitude (mvolts) 0.3 mV [facility] Bennie RV Sensing Polarity BI [facility] Detection Configuration (Vent) 2 - Zone [facility] FastVT_Detection Interval 273 ms [facility] FastVT_Therapy Configuration 1 ATP(s) + 8 Shock(s) [facility] ICD FastVT DetectionStatus ENABLED [facility] ICD-AMS EPISODES 140 {beats}/min [facility] ICD-ATP Episodes (Vent) 0 [facility] ICD-ATRIALFIBRILLATIO N 0 [facility] ICD-ATRIALTACHYCARDIA 1 [facility] ICD-Device Mfg BSX [facility] ICD-LEADIMPEDANCEATRI AL 463 ohm [facility] ICD-Percent Pacing (Atrial) 68 % [facility] ICD-Percent Pacing (Vent) 99 % [facility] ICD-Shocks Aborted (Vent) 0 [facility] [id number] 0 [facility] ICD-SHOCKSABORTED 0 [facility] ICD-SHOCKSDELIVEREDVE NTRICULAR 0 [facility] ICD-Ventricular Fibrillation 0 [facility] ICD-VVDELAY_MS 0 ms [facility] Lead Impedance (LV) 449 ohm [facility] Lead Impedance (RV) 567 ohm [facility] Lead Impedance High Voltage 77 ohm [facility] Lead1 Mfg BSX [facility] Lead2 Mfg CPM [facility] Lead3 Mfg GDT [facility] Location LV [facility] Location RA [facility] Location RV [facility] Lower Rate (bpm) 80 {beats}/min [facility] PACING % 99 % [facility] Max Sensor Rate (bpm) 130 {beats}/min [facility] MDT_PROG_TACHY_ZONE_D ETECTIONS_STATUS ENABLED [facility] Model G138 MOMENTUM X4 [facility] Model 4671 Acuity X4 Straight C [facility] Model 4469 Fineline II Sterox EZ [facility] Model 0180 [place] SG [facility] Pacing Mode DDIR [facility] Serial Number [id number] [facility] Serial Number [id number] [facility] Serial Number [id number] [facility] Serial Number [id number] [facility] Test Charge Time 10.1 s [facility] Therapy Status (Vent) Enabled [facility] VF Zone Detection Interval 273 ms [facility] VF Zone Therapy Configuration 1 ATP(s) + 8 Shock(s) [facility] No Panel Informationon 09-04 BLANK _ [facility] ICD-ATRIALTACHYCARDIA 0 [facility] ICD-Fast Ventricular Tachycardia 0 [facility] Implant Date 01/08/2022 [facility] Implant Date 08/09/2006 [facility] Absolute lymphocyte countOrd ered By: Dr. Reeves on 08-17-2022 Lymphocytes Auto (Unsp spec) [#/Vol] 1.53 10*3/uL 0.83-4.51 [facility] Basophil percentageOrdered B y: Dr. Reeves on 08-17-2022 Basophils/100 WBC (Bld) 0.5 % 0-1 [facility] Chloride [Moles/Vol] 103 mmol/L 98-107 [facility] Eosinophils/100 WBC (Bld) 0.6 % 0-5 [facility] Glucose [Mass/Vol] 101 mg/dL 74-106 [facility] Comment on above: Fasting Glucose resu lt from 100 to 125 mg/dL suggests IMPAIRED HOMEOSTASIS per A.D.A. criteria. Neutrophils (Bld) [#/Vol] 4.0 10*3/uL 2.0-7.7 [facility] Neutrophils/100 WBC (Bld) 63.7 % 47-70 [facility] Potassium [Moles/Vol] 4.0 mmol/L 3.5-5.1 [facility] Sodium [Moles/Vol] 138 mmol/L 136-145 [facility] WBC (Bld) [#/Vol] 6.2 10*3/uL 4.4-11.0 [facility] Blood erythrocytes count (nu mber/volume)Ordered By: Dr. Reeves on 08-17-2022 RBC (Bld) [#/Vol] 5.05 10*6/uL 4.2-5.4 [facility] Blood hemoglobin measurement (mass/volume)Ordered By: Dr. Reeves on 08-17-2022 Hemoglobin (Bld) [Mass/Vol] 11.2 g/dL 12.0-15.0 [facility] Blood lymphocytes/100 leukoc ytesOrdered By: Dr. Reeves on 08-17-2022 Lymphocytes/100 WBC (Bld) 24.7 % 19-41 [facility] Blood monocytes/100 leukocyt esOrdered By: Dr. Reeves on 08-17-2022 Monocytes/100 WBC (Bld) 10.0 % 0-10 [facility] Blood platelet mean volumeOr dered By: Dr. Reeves on 08-17-2022 Platelet mean volume (Bld) [Entitic vol] 9.6 fL 6.2-12.0 [facility] Determination of erythrocyte mean corpuscular volume (MCV)Ordered By: Dr. Reeves on 08-17-2022 MCV (RBC) [Entitic vol] 78.2 fL 81-99 [facility] Hematocrit Auto (Bld) [Volum e fraction]Ordered By: Dr. Reeves on 08-17-2022 Hematocrit (Bld) [Volume fraction] 39.5 % 37-47 [facility] INR in Blood by Coagulation assayOrdered By: Dr. Reeves on 08-17-2022 INR Coag (Bld) [Relative time] 1.9 {INR} [facility] - Chemistry and C hemistry - challengeOrdered By: Dr. Reeves on 08-17-2022 CO2 [Moles/Vol] 26.0 mmol/L 21.0-32.0 [facility] Urea nitrogen/Creatinine [Mass ratio] 23.2 mg/mg 10-20 [facility] - CoagulationOrde red By: Dr. Reeves on 08-17-2022 PT Coag (PPP) [Time] 21.1 s 11.7-14.9 [facility] - Hematology and Cell countsOrdered By: Dr. Reeves on 08-17-2022 Anisocytosis Ql (Bld) 1+ [facility] Erythrocyte distribution width (RBC) [Entitic vol] 56.1 fL 35.1-43.9 [facility] Erythrocyte distribution width (RBC) [Ratio] 20.7 % 11.6-14.6 [facility] Immature granulocytes/100 WBC (Bld) 0.500 % 0.0-0.9 [facility] Comment on above: IG% - Immature Granu locytes (promyelocytes, myelocytes and metamyelocytes) > 1% indicates that a LEFT SHIFT is Present. MCH (RBC) [Entitic mass] 22.2 pg 27.0-32.0 [facility] Nucleated RBC/100 WBC (Bld) [Ratio] 0 % 0-5 [facility] MCHC Auto (RBC) [Mass/Vol]Or dered By: Dr. Reeves on 08-17-2022 MCHC (RBC) [Mass/Vol] 28.4 g/dL 32-36 [facility] No Panel InformationOrdered By: Dr. Reeves on 08-17-2022 Estimated Creatinine Clearance Calc 35.60 ml/min [facility] Estimated GFR (MDRD) Amer 49 mL/min >60 [facility] Comment on above: GFR Calc Estimated GFR (MDRD) Non-Af Amer 40 mL/min >60 [facility] Comment on above: Non- GFR Calc Platelets bldOrdered By: Dr. Reeves on 08-17-2022 Platelets (Bld) [#/Vol] 242 10*3/uL 150-450 [facility] Serum or plasma calcium radha urement (mass/volume)Ordered By: Dr. Reeves on 08-17-2022 Calcium [Mass/Vol] 9.4 mg/dL 8.5-10.1 [facility] Serum or plasma creatinine m easurement (mass/volume)Ordered By: Dr. Reeves on 08-17-2022 Creatinine [Mass/Vol] 1.38 mg/dL 0.55-1.02 [facility] Comment on above: The validity of the calculated GFR & GFRAA in patients over 70 years has not been determined. Clinical correlation is essential. Serum or plasma urea nitroge n measurement (mass/volume)Ordered By: Dr. Reeves on 08-17-2022 Urea nitrogen [Mass/Vol] 32 mg/dL 7-18 [facility] Thin prep Papanicolaou smear with manual screeningOrdered By: Dr. Reeves on 08-17-2022 Thin prep Papanicolaou smear with manual screening 9 5-15 [facility] PT panel Coag (PPP)on 2021 INR Coag (Bld) [Relative time] 2.6 {INR} 2.5 - 3.5 [facility] ICD CLINIC CHECKon 2 AV Delay Adaptive Paced Minimum (ms) 230 ms [facility] AV Delay Paced (ms) 150 ms [facility] Bennie LV Pacing Amplitude (volts) 2.8 V [facility] Bennie LV Pacing Pulse Width (ms) 0.4 ms [facility] bennie LV Sensing Amplitude (mvolts) 1 mV [facility] Bennie RA Pacing Amplitude (volts) 4.5 V [facility] Bennie RA Pacing Polarity BI [facility] Bennie RA Pacing Pulse Width (ms) 0.4 ms [facility] Bennie RA Sensing Amplitude (mvolts) 0.3 mV [facility] Bennie RA Sensing Polarity BI [facility] Bennei RV Pacing Amplitude (volts) 2.6 V [facility] Bennie RV Pacing Polarity BI [facility] Bennie RV Pacing Pulse Width (ms) 0.4 ms [facility] Bennie RV Sensing Amplitude (mvolts) 0.3 mV [facility] Bennie RV Sensing Polarity BI [facility] Detection Configuration (Vent) 2 - Zone [facility] FastVT_Detection Interval 273 ms [facility] FastVT_Therapy Configuration 1 ATP(s) + 8 Shock(s) [facility] ICD FastVT DetectionStatus ENABLED [facility] ICD-ATP Episodes (Vent) 0 [facility] ICD-ATRIALFIBRILLATIO N 45 [facility] ICD-Device Mfg BSX [facility] ICD-Fast Ventricular Tachycardia 1 [facility] ICD-LEADIMPEDANCEATRI AL 454 ohm [facility] ICD-Percent Pacing (Atrial) 88 % [facility] ICD-Percent Pacing (Vent) 98 % [facility] ICD-Rhythm Atrial tach with com plete heart block [facility] ICD-Shocks Aborted (Vent) 0 [facility] [id number] 0 [facility] ICD-SHOCKSABORTED 0 [facility] ICD-SHOCKSDELIVEREDVE NTRICULAR 0 [facility] ICD-Ventricular Fibrillation 0 [facility] ICD-VVDELAY_MS 0 ms [facility] Lead Impedance (LV) 473 ohm [facility] Lead Impedance (RV) 560 ohm [facility] Lead Impedance High Voltage 84 ohm [facility] Lead1 Mfg BSX [facility] Lead2 Mfg CPM [facility] Lead3 Mfg GDT [facility] Location LV [facility] Location RA [facility] Location RV [facility] Lower Rate (bpm) 80 {beats}/min [facility] LV PACING % 99 % [facility] Max Sensor Rate (bpm) 130 {beats}/min [facility] MDT_PROG_TACHY_ZONE_D ETECTIONS_STATUS ENABLED [facility] Model G138 MOMENTUM X4 [facility] Model 4671 Acuity X4 Straight C [facility] Model 4469 Fineline II Sterox EZ [facility] Model 0180 [place] SG [facility] Pacemaker Dependent? YES [facility] Pacing Mode DDIR [facility] Serial Number [id number] [facility] Serial Number [id number] [facility] Serial Number [id number] [facility] Serial Number [id number] [facility] Test Charge Time 10.1 s [facility] Therapy Status (Vent) Enabled [facility] Thresh LV Capture Amplitude (volts) 1.1 V [facility] Thresh LV Capture Duration (ms) 0.4 ms [facility] Thresh RA Capture Amplitude (volts) 2.5 V [facility] Thresh RA Capture Duration (ms) 0.4 ms [facility] Thresh RA Sensing Amplitude (mvolts) 0.4 mV [facility] Thresh RV Capture Amplitude (VOLTS) 1.3 V [facility] Thresh RV Capture Duration (MS) 0.4 ms [facility] VF Zone Detection Interval 273 ms [facility] VF Zone Therapy Configuration 1 ATP(s) + 8 Shock(s) [facility] No Panel Informationon 07-28 BLANK _ [facility] ICD-Fast Ventricular Tachycardia 0 [facility] Implant Date 01/08/2022 [facility] Implant Date 08/09/2006 [facility] PT panel Coag (PPP)on 2021 INR Coag (Bld) [Relative time] 2.3 {INR} Abnormal 2.5 - 3.5 [facility] PT panel Coag (PPP)on 2021 INR Coag (Bld) [Relative time] 2.7 {INR} 2.5 - 3.5 [facility] PT panel Coag (PPP)on 2021 INR Coag (Bld) [Relative time] 2.9 {INR} 2.5 - 3.5 [facility] PT panel Coag (PPP)on 2021 INR Coag (Bld) [Relative time] 3.4 {INR} 2.5 - 3.5 [facility] ECG COMPLETEon 06-19-2022 ECG COMPLETE Normal [facility] HISTORY PHYSICALon 2 HISTORY PHYSICAL Normal [facility] PT panel Coag (PPP)on 2021 INR Coag (Bld) [Relative time] 2.8 {INR} 2.5 - 3.5 [facility] ICD REMOTE CHECKon 2 AV Delay Adaptive Paced Minimum (ms) 240 ms [facility] AV Delay Paced (ms) 150 ms [facility] Bennie LV Pacing Amplitude (volts) 2.8 V [facility] Bennie LV Pacing Pulse Width (ms) 0.4 ms [facility] bennie LV Sensing Amplitude (mvolts) 1 mV [facility] Bennie RA Pacing Amplitude (volts) 4.5 V [facility] Bennie RA Pacing Polarity BI [facility] Bennie RA Pacing Pulse Width (ms) 0.4 ms [facility]ie RA Sensing Amplitude (mvolts) 0.3 mV [facility] Bennie RA Sensing Polarity BI [facility]ie RV Pacing Amplitude (volts) 2.6 V [facility] Bennie RV Pacing Polarity BI [facility] Bennie RV Pacing Pulse Width (ms) 0.4 ms [facility] Bennie RV Sensing Amplitude (mvolts) 0.3 mV [facility] Bennie RV Sensing Polarity BI [facility] Detection Configuration (Vent) 2 - Zone [facility] FastVT_Detection Interval 273 ms [facility] FastVT_Therapy Configuration 1 ATP(s) + 8 Shock(s) [facility] ICD FastVT DetectionStatus ENABLED [facility] ICD-AMS EPISODES 140 {beats}/min [facility] ICD-ATP Episodes (Vent) 0 [facility] ICD-ATRIALFIBRILLATIO N 0 [facility] ICD-ATRIALTACHYCARDIA 17 [facility] ICD-ATRIALTACHYCARDIA 39 [facility] ICD-Device Mfg BSX [facility] ICD-Fast Ventricular Tachycardia 39 [facility] ICD-LEADIMPEDANCEATRI AL 467 ohm [facility] ICD-Percent Pacing (Atrial) 67 % [facility] ICD-Percent Pacing (Vent) 57 % [facility] ICD-Shocks Aborted (Vent) 0 [facility] PZJ-UTKUXX-SKSEMLZPM 0 [facility] ICD-SHOCKSABORTED 0 [facility] ICD-SHOCKSDELIVEREDVE NTRICULAR 0 [facility] ICD-Ventricular Fibrillation 0 [facility] ICD-VVDELAY_MS 0 ms [facility] Lead Impedance (LV) 452 ohm [facility] Lead Impedance (RV) 575 ohm [facility] Lead Impedance High Voltage 79 ohm [facility] Lead1 Mfg BSX [facility] Lead2 Mfg CPM [facility] Lead3 Mfg GDT [facility] Location LV [facility] Location RA [facility] Location RV [facility] Lower Rate (bpm) 70 {beats}/min [facility] LV PACING % 90 % [facility] Max Sensor Rate (bpm) 130 {beats}/min [facility] MDT_PROG_TACHY_ZONE_D ETECTIONS_STATUS ENABLED [facility] Model G138 MOMENTUM X4 [facility] Model 4671 Acuity X4 Straight C [facility] Model 4469 Fineline II Sterox EZ [facility] Model 0180 [place] SG [facility] Pacing Mode DDIR [facility] Serial Number [id number] [facility] Serial Number [id number] [facility] Serial Number [id number] [facility] Serial Number [id number] [facility] Test Charge Time 9.8 s [facility] Therapy Status (Vent) Enabled [facility] VF Zone Detection Interval 273 ms [facility] VF Zone Therapy Configuration 1 ATP(s) + 8 Shock(s) [facility] No Panel Informationon 06-03 BLANK _ [facility] ICD-ATRIALTACHYCARDIA 0 [facility] ICD-Fast Ventricular Tachycardia 0 [facility] Implant Date 01/08/2022 [facility] Implant Date 08/09/2006 [facility] PT panel Coag (PPP)on 2021 INR Coag (Bld) [Relative time] 2.7 {INR} 2.5 - 3.5 [facility] PT panel Coag (PPP)on 2021 INR Coag (Bld) [Relative time] 1.8 {INR} Abnormal 2.5 - 3.5 [facility] CNPNon 05-21-2022 CNPN Normal [facility] CNCOon 05-15-2022 CNCO Letter Text Normal [facility] Basic metabolic 2000 panelon 05-14-2022 Anion gap [Moles/Vol] 11 mmol/L Normal 9-18 [facility] Comment on above: Order Comment: Speci men Type: BLOOD SPECIMENOrdering Facility: [facility] Address: [facility] [place] [address] Performed By: #### 3 016-3, 52162-1, ####[facility] LABORATORYCLIA [id number] [place] [address] [place] Calcium [Mass/Vol] 9.1 mg/dL Normal 8.5-10.2 [facility] Comment on above: Order Comment: Speci men Type: BLOOD SPECIMENOrdering Facility: [facility] Address: [address] [address] Performed By: #### 3 016-3, 01905-6, ####[facility] LABORATORYCLIA [id number] [place] [address] [place] Chloride [Moles/Vol] 106 mmol/L High 97-105 [facility] Comment on above: Order Comment: Speci men Type: BLOOD SPECIMENOrdering Facility: [facility] Address: [facility] [place] [address] Performed By: #### 3 016-3, 75270-2, ####[facility] LABORATORYCLIA [id number] [place] [address] [place] CO2 [Moles/Vol] 22 mmol/L Normal 22-30 [facility] Comment on above: Order Comment: Speci men Type: BLOOD SPECIMENOrdering Facility: [facility] Address: [address] [address] Performed By: #### 3 016-3, 28253-7, ####[facility] LABORATORYCLIA [id number] [place] [address] [place] Creatinine [Mass/Vol] 1.25 mg/dL High 0.58-0.96 [facility] Comment on above: Order Comment: Speci men Type: BLOOD SPECIMENOrdering Facility: [facility] Address: [address] [address] Performed By: #### 3 016-3, 87098-0, ####[facility] LABORATORYCLIA [id number] [place] [address] [place] ESTIMATED GLOMERULAR FILTRATION RATE 47 mL/min/1.73m??? Low >=60 [facility] Comment on above: Order Comment: Sal[place] yang Type: BLOOD SPECIMENOrdering Facility: [facility] Address: [address] [place] [address] Result Comment: [facility] Glomerular Filtration Rate (eGFR) is calculated using the 2020 CKD-EPI creatinine equation. This equation utilizes serum creatinine, sex, and age as parameters. The creatinine assay has traceable calibration to isotope dilution-mass spectrometry. Refer to KDIGO guidelines for clinical interpretation. In patients with unstable renal function, e.g. those with acute kidney injury, the eGFR may not accurately reflect actual GFR. Performed By: #### 3 016-3, 33428-7, ####[facility]PRES[facility] LABORATORYCLIA [id number] [place] [address] [place] Glucose [Mass/Vol] 107 mg/dL High 74-99 [facility] Comment on above: Order Comment: Salinas yang Type: BLOOD SPECIMENOrdering Facility: [facility] Address: [address] [place] [address] Result Comment: The [place] [employer] (ADA) provides guidance for cutoff values for fasting glucose and random glucose. The ADA defines fasting as no caloric intake for at least 8 hours. Fasting plasma glucose results between 100 to 125 mg/dL indicate increased risk for diabetes (prediabetes).Fasting plasma glucose results greater than or equal to 126 mg/dL meet the criteria for diagnosis of diabetes. In the absence of unequivocal hyperglycemia, results should be confirmed by repeat testing. In a patient with classic symptoms of hyperglycemia or hyperglycemic crisis, random plasma glucose results greater than or equal to 200 mg/dL meet the criteria for diagnosis of diabetes.Reference: Standards of Medical Care in Diabetes 2016, [place] [employer]. Diabetes Care. 2016.39(Suppl 1). Performed By: #### 3 016-3, 69771-2, ####[facility] LABORATORYCLIA [id number] [place] [address] [place] Potassium [Moles/Vol] 4.1 mmol/L Normal 3.7-5.1 [facility] Comment on above: Order Comment: Speci men Type: BLOOD SPECIMENOrdering Facility: [facility] Address: [address] [place] [address] Performed By: #### 3 016-3, 62329-2, 10868-3 ####[facility] LABORATORYCLIA [id number] [place] [address] [place] Sodium [Moles/Vol] 139 mmol/L Normal 136-144 [facility] Comment on above: Order Comment: Speci men Type: BLOOD SPECIMENOrdering Facility: [facility] Address: [address] [place] [address] Performed By: #### 3 016-3, 05265-5, 58422-4 ####[facility] LABORATORYCLIA [id number] [place] [address] [place] Urea nitrogen [Mass/Vol] 22 mg/dL High 7-21 [facility] Comment on above: Order Comment: Speci men Type: BLOOD SPECIMENOrdering Facility: [facility] Address: [address] [place] [address] Performed By: #### 3 016-3, 97364-0, 00163-9 ####[facility] LABORATORYCLIA [id number] [place] [address] [place] CASE MANAGEMon 05-14-2022 CASE MANAGEM Normal [facility] CBC panel Auto (Bld)on 05-14 Erythrocyte distribution width (RBC) [Ratio] 20.2 % High 11.5-15.0 [facility] Comment on above: Order Comment: Speci men Type: BLOOD SPECIMENOrdering Facility: [facility] Address: [address] [place] [address] Performed By: #### 5 8410-2 ####[facility] LABORATORYCLIA [id number] [address] Hematocrit (Bld) [Volume fraction] 37.4 % Normal 36.0-46.0 [facility] Comment on above: Order Comment: Speci men Type: BLOOD SPECIMENOrdering Facility: [facility] Address: [address] [place] [address] Performed By: #### 5 8410-2 ####[facility] LABORATORYCLIA [id number] [place] [address] [place] Hemoglobin (Bld) [Mass/Vol] 11.0 g/dL Low 11.5-15.5 [facility] Comment on above: Order Comment: Speci men Type: BLOOD SPECIMENOrdering Facility: [facility] Address: [address] [place] [address] Performed By: #### 5 8410-2 ####[facility] LABORATORYCLIA [id number] [address] [place] MCH (RBC) [Entitic mass] 23.0 pg Low 26.0-34.0 [facility] Comment on above: Order Comment: Speci men Type: BLOOD SPECIMENOrdering Facility: [facility] Address: [address] [place] [address] Performed By: #### 5 8410-2 ####[facility] LABORATORYCLIA [id number] [address] [place] MCHC (RBC) [Mass/Vol] 29.4 g/dL Low 30.5-36.0 [facility] Comment on above: Order Comment: Speci men Type: BLOOD SPECIMENOrdering Facility: [facility] Address: [address] [place] [address] Performed By: #### 5 8410-2 ####[facility] LABORATORYCLIA [id number] [address] [place] MCV (RBC) [Entitic vol] 78.2 fL Low 80.0-100.0 [facility] Comment on above: Order Comment: Speci men Type: BLOOD SPECIMENOrdering Facility: [facility] Address: [address] [address] Performed By: #### 5 8410-2 ####[facility] LABORATORYCLIA [id number] [place] [address] [place] Nucleated RBC (Bld) [#/Vol] 10*3/uL Normal <0.01 [facility] Comment on above: Order Comment: Speci men Type: BLOOD SPECIMENOrdering Facility: [facility] Address: [address] [place] [address] Performed By: #### 5 8410-2 ####[facility] LABORATORYCLIA [id number] [place] [address] [place] Platelet mean volume (Bld) [Entitic vol] 9.4 fL Normal 9.0-12.7 [facility] Comment on above: Order Comment: Speci men Type: BLOOD SPECIMENOrdering Facility: [facility] Address: [address] [place] [address] Performed By: #### 5 8410-2 ####[facility] LABORATORYCLIA [id number] [place] [address] [place] Platelets (Bld) [#/Vol] 225 10*3/uL Normal 150-400 [facility] Comment on above: Order Comment: Speci men Type: BLOOD SPECIMENOrdering Facility: [facility] Address: [address] [place] [address] Performed By: #### 5 8410-2 ####[facility] LABORATORYCLIA [id number] [place] [address] [place] RBC (Bld) [#/Vol] 4.78 10*6/uL Normal 3.90-5.20 [facility] Comment on above: Order Comment: Speci men Type: BLOOD SPECIMENOrdering Facility: [facility] Address: [address] [place] [address] Performed By: #### 5 8410-2 ####[facility] LABORATORYCLIA [id number] [place] [address] [place] WBC (Bld) [#/Vol] 6.55 10*3/uL Normal 3.70-11.00 [facility] Comment on above: Order Comment: Salinas yang Type: BLOOD SPECIMENOrdering Facility: [facility] Address: [address] [place], [place] [address] [place] [address] Performed By: #### 5 8410-2 ####[facility] LABORATORYCLIA [id number] [place] [address] [place] CNDSon 05-14-2022 CNDS Normal [facility] CONSULT PROGon 05-14-2022 CONSULT PROG [facility] Magnesium SerPl-mCncon 05-14 Magnesium [Mass/Vol] 2.2 mg/dL Normal 1.7-2.3 [facility] Comment on above: Order Comment: Sal[place] yang Type: BLOOD SPECIMENOrdering Facility: [facility] Address: [address] [place] [address] Performed By: #### 3 016-3, 13000-8, 40684-3 ####[facility] LABORATORYCLIA [id number] [place] [address] [place] PT panel Coag (PPP)on 2021 INR Coag (PPP) [Relative time] 2.9 {INR} High 0.9-1.3 [facility] Comment on above: Order Comment: Sal[place] yang Type: BLOOD SPECIMENOrdering Facility: [facility] Address: [address] [place] [address] Result Comment: Miryam min K Antagonist (VKA) Therapeutic Range: INR 2 to 3 (Target INR of 2.5)Note: For patients treated with VKA drugs, such as warfarin, the [place] [employer] 2012 Guideline recommends a therapeutic INR range of 2 to 3 (target INR of 2.5). This recommendation includes high-risk patients with antiphospholipid syndrome with previous arterial or venous thromboembolism, current-generation mechanical or bioprosthetic aortic heart valve replacement.Note: Patients with mechanical aortic valve replacement and additional risk factors for thromboembolic events (atrial fibrillation, previous thromboembolism, LV dysfunction, hypercoagulable conditions) or an older generation mechanical AVR (i.e., ball in-Cage) or any mechanical MVR should have a INR therapeutic range of 2.5 to 3.5 (target INR of 3).Sabrina GH, et al. Chest 2012, 141:7S-47SNishimura RA, et al. [facility] 2017, 70: 252-289 Performed By: #### 3 4528-0 ####[facility] LABORATORYCLIA [id number] [place] [address] [place] PT Coag (PPP) [Time] 29.8 s High 9.7-13.0 [facility] Comment on above: Order Comment: Speci men Type: BLOOD SPECIMENOrdering Facility: [facility] Address: [facility] [place] [address] Performed By: #### 3 4528-0 ####[facility] LABORATORYCLIA [id number] [place] [address] [place] TSH SerPl-aCncon 05-14-2022 TSH Qn 1.590 m[IU]/L Normal 0.270-4.200 [facility] Comment on above: Order Comment: Speci men Type: BLOOD SPECIMENOrdering Facility: [facility] Address: [facility] [address] [place] [address] Performed By: #### 3 016-3, 76822-6, ####[facility] LABORATORYCLIA [id number] [place] [address] [place] Basic metabolic 2000 panelon 05-13-2022 Anion gap [Moles/Vol] 10 mmol/L Normal 9-18 [facility] Comment on above: Order Comment: Speci men Type: BLOOD SPECIMENOrdering Facility: [facility] Address: [address] [address] Performed By: #### 2 4321-2, ####[facility] LABORATORYCLIA [id number] [place] [address] [place] Calcium [Mass/Vol] 9.0 mg/dL Normal 8.5-10.2 [facility] Comment on above: Order Comment: Speci men Type: BLOOD SPECIMENOrdering Facility: [facility] Address: [address] [address] Performed By: #### 2 4321-2, ####[facility] LABORATORYCLIA [id number] [place] [address] [place] Chloride [Moles/Vol] 106 mmol/L High 97-105 [facility] Comment on above: Order Comment: Speci men Type: BLOOD SPECIMENOrdering Facility: [facility] Address: [address] [place] [address] Performed By: #### 2 4321-2, ####[facility] LABORATORYCLIA [id number] [place] [address] [place] CO2 [Moles/Vol] 23 mmol/L Normal 22-30 [facility] Comment on above: Order Comment: Speci men Type: BLOOD SPECIMENOrdering Facility: [facility] Address: [address] [place] [address] Performed By: #### 2 4321-2, ####[facility] LABORATORYCLIA [id number] [place] [address] [place] Creatinine [Mass/Vol] 1.28 mg/dL High 0.58-0.96 [facility] Comment on above: Order Comment: Speci men Type: BLOOD SPECIMENOrdering Facility: [facility] Address: [address] [place] [address] Performed By: #### 2 432-2, ####[facility] LABORATORYCLIA [id number] [place] [address] [place] ESTIMATED GLOMERULAR FILTRATION RATE 46 mL/min/1.73m??? Low >=60 [facility] Comment on above: Order Comment: Speci men Type: BLOOD SPECIMENOrdering Facility: [facility] Address: [address] [place] [address] Result Comment: Cindy mated Glomerular Filtration Rate (eGFR) is calculated using the 2020 CKD-EPI creatinine equation. This equation utilizes serum creatinine, sex, and age as parameters. The creatinine assay has traceable calibration to isotope dilution-mass spectrometry. Refer to KDIGO guidelines for clinical interpretation. In patients with unstable renal function, e.g. those with acute kidney injury, the eGFR may not accurately reflect actual GFR. Performed By: #### 2 43209-14, ####[facility] LABORATORYCLIA [id number] [place] [address] [place] Glucose [Mass/Vol] 95 mg/dL Normal 74-99 [facility] Comment on above: Order Comment: Salinas yang Type: BLOOD SPECIMENOrdering Facility: [facility] Address: [address] [id number] Result Comment: The [place] [employer] (ADA) provides guidance for cutoff values for fasting glucose and random glucose. The ADA defines fasting as no caloric intake for at least 8 hours. Fasting plasma glucose results between 100 to 125 mg/dL indicate increased risk for diabetes (prediabetes).Fasting plasma glucose results greater than or equal to 126 mg/dL meet the criteria for diagnosis of diabetes. In the absence of unequivocal hyperglycemia, results should be confirmed by repeat testing. In a patient with classic symptoms of hyperglycemia or hyperglycemic crisis, random plasma glucose results greater than or equal to 200 mg/dL meet the criteria for diagnosis of diabetes.Reference: Standards of Medical Care in Diabetes 2016, [place] [employer]. Diabetes Care. 2016.39(Suppl 1). Performed By: #### 2 4320-10, ####NetTalonCREST LABORATORYCLIA [id number] [place] [address] [place] Potassium [Moles/Vol] 3.6 mmol/L Low 3.7-5.1 [facility] Comment on above: Order Comment: Salinas yang Type: BLOOD SPECIMENOrdering Facility: [facility] Address: [address] [place] [address] Performed By: #### 2 4320-10, ####[facility] LABORATORYCLIA [id number] [place] [address] [place] Sodium [Moles/Vol] 139 mmol/L Normal 136-144 [facility] Comment on above: Order Comment: Speci men Type: BLOOD SPECIMENOrdering Facility: [facility] Address: [address] [address] Performed By: #### 2 4321-2, 07244-9 ####[facility] LABORATORYCLIA [id number] [place] [address] [place] Urea nitrogen [Mass/Vol] 26 mg/dL High 7-21 [facility] Comment on above: Order Comment: Speci men Type: BLOOD SPECIMENOrdering Facility: [facility] Address: [address] [place] [address] Performed By: #### 2 432-2, 67738-0 ####[facility] LABORATORYCLIA [id number] [place] [address] [place] CBC panel Auto (Bld)on 05-13 Erythrocyte distribution width (RBC) [Ratio] 19.9 % High 11.5-15.0 [facility] Comment on above: Order Comment: Speci men Type: BLOOD SPECIMENOrdering Facility: [facility] Address: [address] [place] [address] Performed By: #### 5 8410-2 ####[facility] LABORATORYCLIA [id number] [place] [address] [place] Hematocrit (Bld) [Volume fraction] 34.8 % Low 36.0-46.0 [facility] Comment on above: Order Comment: Speci men Type: BLOOD SPECIMENOrdering Facility: [facility] Address: [address] [place] [address] Performed By: #### 5 8410-2 ####[facility] LABORATORYCLIA [id number] [place] [address] [place] Hemoglobin (Bld) [Mass/Vol] 10.3 g/dL Low 11.5-15.5 [facility] Comment on above: Order Comment: Speci men Type: BLOOD SPECIMENOrdering Facility: [facility] Address: [address] [place] [address] Performed By: #### 5 8410-2 ####[facility] LABORATORYCLIA [id number] [address] [place] [facility] MCH (RBC) [Entitic mass] 23.1 pg Low 26.0-34.0 [facility] Comment on above: Order Comment: Speci men Type: BLOOD SPECIMENOrdering Facility: [facility] Address: [address] [place] [address] Performed By: #### 5 8410-2 ####[facility] LABORATORYCLIA [id number] [address] [place] MCHC (RBC) [Mass/Vol] 29.6 g/dL Low 30.5-36.0 [facility] Comment on above: Order Comment: Speci men Type: BLOOD SPECIMENOrdering Facility: [facility] Address: [address] [place] [address] Performed By: #### 5 8410-2 ####[facility] LABORATORYIA [id number] [address] STATES [facility] MCV (RBC) [Entitic vol] 78.0 fL Low 80.0-100.0 [facility] Comment on above: Order Comment: Speci men Type: BLOOD SPECIMENOrdering Facility: [facility] Address: [address] [place] [address] Performed By: #### 5 8410-2 ####[facility] LABORATORYCLIA [id number] [address] [place] Nucleated RBC (Bld) [#/Vol] 10*3/uL Normal <0.01 [facility] Comment on above: Order Comment: Speci men Type: BLOOD SPECIMENOrdering Facility: [facility] Address: [address] [place] [address] Performed By: #### 5 8410-2 ####[facility] LABORATORYCLIA [id number] [address] [place] Platelet mean volume (Bld) [Entitic vol] 10.3 fL Normal 9.0-12.7 [facility] Comment on above: Order Comment: Speci men Type: BLOOD SPECIMENOrdering Facility: [facility] Address: [address] [place] [address] Performed By: #### 5 8410-2 ####[facility] LABORATORYCLIA [id number] [address] [place] Platelets (Bld) [#/Vol] 213 10*3/uL Normal 150-400 [facility] Comment on above: Order Comment: Speci men Type: BLOOD SPECIMENOrdering Facility: [facility] Address: [address] [place] [address] Performed By: #### 5 8410-2 ####[facility] LABORATORYCLIA [id number] [place] [address] [place] RBC (Bld) [#/Vol] 4.46 10*6/uL Normal 3.90-5.20 [facility] Comment on above: Order Comment: Speci men Type: BLOOD SPECIMENOrdering Facility: [facility] Address: [address] [place] [address] Performed By: #### 5 8410-2 ####[facility] LABORATORYCLIA [id number] [address] [place] WBC (Bld) [#/Vol] 5.48 10*3/uL Normal 3.70-11.00 [facility] Comment on above: Order Comment: Speci men Type: BLOOD SPECIMENOrdering Facility: [facility] Address: [address] [place] [address] Performed By: #### 5 8410-2 ####[facility] [facility]ATORYCLIA [id number] [place] [address] [place] ECG COMPLETEon 05-13-2022 ECG COMPLETE Normal [facility] Magnesium SerPl-mCncon 05-13 Magnesium [Mass/Vol] 2.1 mg/dL Normal 1.7-2.3 [facility] Comment on above: Order Comment: Speci men Type: BLOOD SPECIMENOrdering Facility: [facility] Address: [address] [address] Performed By: #### 2 4321-2, 44955-6 ####[facility] LABORATORYCLIA [id number] [place] [address] [place] PT panel Coag (PPP)on 2021 INR Coag (PPP) [Relative time] 2.5 {INR} High 0.9-1.3 [facility] Comment on above: Order Comment: Speceverett men Type: BLOOD SPECIMENOrdering Facility: [facility] Address: [address] [address] Result Comment: Miryam min K Antagonist (VKA) Therapeutic Range: INR 2 to 3 (Target INR of 2.5)Note: For patients treated with VKA drugs, such as warfarin, the [place] [employer] 2012 Guideline recommends a therapeutic INR range of 2 to 3 (target INR of 2.5). This recommendation includes high-risk patients with antiphospholipid syndrome with previous arterial or venous thromboembolism, current-generation mechanical or bioprosthetic aortic heart valve replacement.Note: Patients with mechanical aortic valve replacement and additional risk factors for thromboembolic events (atrial fibrillation, previous thromboembolism, LV dysfunction, hypercoagulable conditions) or an older generation mechanical AVR (i.e., ball in-Cage) or any mechanical MVR should have a INR therapeutic range of 2.5 to 3.5 (target INR of 3).Sabrina GH, et al. Chest 2012, 141:7S-47SNishimura RA, et al. [facility] 2017, 70: 252-289 Performed By: #### 1 4979-9, 72956-4 ####[facility] LABORATORYCLIA [id number] [place] [address] [place] PT Coag (PPP) [Time] 25.3 s High 9.7-13.0 [facility] Comment on above: Order Comment: Salinas yang Type: BLOOD SPECIMENOrdering Facility: [facility] Address: [address] Performed By: #### 1 4979-9, 69425-1 ####[facility] LABORATORYCLIA [id number] [place] [address] [place] PTT, ANTICOAGULANT THERAPYon 05-13-2022 aPTT Coag (PPP) [Time] 32.5 s High 23.0-32.4 [facility] Comment on above: Order Comment: Speci men Type: BLOOD SPECIMENOrdering Facility: [facility] Address: [address] [place] [address] Performed By: #### P TTAC ####[facility] LABORATORYCLIA [id number] [place] [address] [place] aPTT Coag (PPP) [Time] 77.3 s High 23.0-32.4 [facility] Comment on above: Order Comment: Speci men Type: BLOOD SPECIMENOrdering Facility: [facility] Address: [address] [place] [address] Performed By: #### P TTAC ####[facility] LABORATORYCLIA [id number] [place] [address] [place] aPTT PPPon 05-13-2022 aPTT Coag (PPP) [Time] 66.5 s High 23.0-32.4 [facility] Comment on above: Order Comment: Speci men Type: BLOOD SPECIMENOrdering Facility: [facility] Address: [address] [place] [address] Performed By: #### 1 4979-9, 07958-9 ####[facility] LABORATORYCLIA [id number] [place] [address] [place] Basic metabolic 2000 panelon 05-12-2022 Anion gap [Moles/Vol] 10 mmol/L Normal 9-18 [facility] Comment on above: Order Comment: Speci men Type: BLOOD SPECIMENOrdering Facility: [facility] Address: [address] [place] [address] Performed By: #### 2 4321-2, 87854-3 ####[facility] LABORATORYCLIA [id number] [place] [address] [place] Calcium [Mass/Vol] 8.9 mg/dL Normal 8.5-10.2 [facility] Comment on above: Order Comment: Speci men Type: BLOOD SPECIMENOrdering Facility: [facility] Address: [address] Performed By: #### 2 4321-2, ####[facility]ORATORYCLIA [id number] [place] [address] [place] Chloride [Moles/Vol] 105 mmol/L Normal 97-105 [facility] Comment on above: Order Comment: Speci men Type: BLOOD SPECIMENOrdering Facility: [facility] Address: [address] Performed By: #### 2 4320-2, ####[facility]ORATORYCLIA [id number] [place] [address] [place] CO2 [Moles/Vol] 24 mmol/L Normal 22-30 [facility] Comment on above: Order Comment: Speci men Type: BLOOD SPECIMENOrdering Facility: [facility] Address: [facility] [address] Performed By: #### 2 4320-2, ####[facility]ORATORYCLIA [id number] [place] [address] [place] Creatinine [Mass/Vol] 1.29 mg/dL High 0.58-0.96 [facility] Comment on above: Order Comment: Speci men Type: BLOOD SPECIMENOrdering Facility: [facility] Address: [address] Performed By: #### 2 4320-2, ####[facility]ORATORYCLIA [id number] [place] [address] [place] ESTIMATED GLOMERULAR FILTRATION RATE 46 mL/min/1.73m??? Low >=60 [facility] Comment on above: Order Comment: Speci men Type: BLOOD SPECIMENOrdering Facility: [facility] Address: [address] Result Comment: Cindy [facility] Glomerular Filtration Rate (eGFR) is calculated using the 2020 CKD-EPI creatinine equation. This equation utilizes serum creatinine, sex, and age as parameters. The creatinine assay has traceable calibration to isotope dilution-mass spectrometry. Refer to KDIGO guidelines for clinical interpretation. In patients with unstable renal function, e.g. those with acute kidney injury, the eGFR may not accurately reflect actual GFR. Performed By: #### 2 432-, ####[facility] LABORATORYCLIA [id number] [place] [address] [place] Glucose [Mass/Vol] 100 mg/dL High 74-99 [facility] Comment on above: Order Comment: Salinas yang Type: BLOOD SPECIMENOrdering Facility: [facility] Address: [address] [address] Result Comment: The [place] [employer] (ADA) provides guidance for cutoff values for fasting glucose and random glucose. The ADA defines fasting as no caloric intake for at least 8 hours. Fasting plasma glucose results between 100 to 125 mg/dL indicate increased risk for diabetes (prediabetes).Fasting plasma glucose results greater than or equal to 126 mg/dL meet the criteria for diagnosis of diabetes. In the absence of unequivocal hyperglycemia, results should be confirmed by repeat testing. In a patient with classic symptoms of hyperglycemia or hyperglycemic crisis, random plasma glucose results greater than or equal to 200 mg/dL meet the criteria for diagnosis of diabetes.Reference: Standards of Medical Care in Diabetes 2016, [place] [employer]. Diabetes Care. 2016.39(Suppl 1). Performed By: #### 2 43209-14, ####[facility] LABORATORYCLIA [id number] [place] [address] [place] Potassium [Moles/Vol] 4.1 mmol/L Normal 3.7-5.1 [facility] Comment on above: Order Comment: Salinas yang Type: BLOOD SPECIMENOrdering Facility: [facility] Address: [address] [place] [address] Performed By: #### 2 432-, 96782-8 ####[facility] LABORATORYCLIA [id number] [place] [id number] [place] Sodium [Moles/Vol] 139 mmol/L Normal 136-144 [facility] Comment on above: Order Comment: Speci men Type: BLOOD SPECIMENOrdering Facility: [facility] Address: [address] [place] [address] Performed By: #### 2 4321-2, 99072-9 ####[facility] LABORATORYCLIA [id number] [place] [address] [place] Urea nitrogen [Mass/Vol] 29 mg/dL High 7-21 [facility] Comment on above: Order Comment: Speci men Type: BLOOD SPECIMENOrdering Facility: [facility] Address: [address] [place] [address] Performed By: #### 2 4321-2, 42572-3 ####[facility]ORATORYCLIA [id number] [place] [address] [place] CASE MGT INIT ASSESon 2021 CASE MGT INIT ASSES Normal [facility] CBC panel Auto (Bld)on 05-12 Erythrocyte distribution width (RBC) [Ratio] 19.8 % High 11.5-15.0 [facility] Comment on above: Order Comment: Speci men Type: BLOOD SPECIMENOrdering Facility: [facility] Address: [address] [place] [address] Performed By: #### 5 8410-2 ####[facility]ORATORYCLIA [id number] [place] [address] [place] Hematocrit (Bld) [Volume fraction] 36.6 % Normal 36.0-46.0 [facility] Comment on above: Order Comment: Speci men Type: BLOOD SPECIMENOrdering Facility: [facility] Address: [address] [place] [address] Performed By: #### 5 8410-2 ####[facility]ORATORYCLIA [id number] [place] [address] [place] Hemoglobin (Bld) [Mass/Vol] 10.6 g/dL Low 11.5-15.5 [facility] Comment on above: Order Comment: Speci men Type: BLOOD SPECIMENOrdering Facility: [facility] Address: [address] [place] [address] Performed By: #### 5 8410-2 ####[facility] LABORATORYCLIA [id number] [address] [place] MCH (RBC) [Entitic mass] 23.3 pg Low 26.0-34.0 [facility] Comment on above: Order Comment: Speci men Type: BLOOD SPECIMENOrdering Facility: [facility] Address: [address] [place] [address] Performed By: #### 5 8410-2 ####[facility] LABORATORYCLIA [id number] [address] [place] MCHC (RBC) [Mass/Vol] 29.0 g/dL Low 30.5-36.0 [facility] Comment on above: Order Comment: Speci men Type: BLOOD SPECIMENOrdering Facility: [facility] Address: [address] [place] [address] Performed By: #### 5 8410-2 ####[facility] LABORATORYCLIA [id number] [address] [place] MCV (RBC) [Entitic vol] 80.6 fL Normal 80.0-100.0 [facility] Comment on above: Order Comment: Speci men Type: BLOOD SPECIMENOrdering Facility: [facility] Address: [address] [place] [address] Performed By: #### 5 8410-2 ####[facility]ORATORYCLIA [id number] [address] [place] Nucleated RBC (Bld) [#/Vol] 10*3/uL Normal <0.01 [facility] Comment on above: Order Comment: Speci men Type: BLOOD SPECIMENOrdering Facility: [facility] Address: [address] [place] [address] Performed By: #### 5 8410-2 ####[facility] LABORATORYCLIA [id number] [place] [address] [place] Platelet mean volume (Bld) [Entitic vol] 10.1 fL Normal 9.0-12.7 [facility] Comment on above: Order Comment: Speci men Type: BLOOD SPECIMENOrdering Facility: [facility] Address: [address] [place] [address] Performed By: #### 5 8410-2 ####[facility]ATORYCLIA [id number] [place] [address] [place] Platelets (Bld) [#/Vol] 223 10*3/uL Normal 150-400 [facility] Comment on above: Order Comment: Speci men Type: BLOOD SPECIMENOrdering Facility: [facility] Address: [address] [place] [address] Performed By: #### 5 8410-2 ####[facility]ORATORYCLIA [id number] [place] [address] [place] RBC (Bld) [#/Vol] 4.54 10*6/uL Normal 3.90-5.20 [facility] Comment on above: Order Comment: Speci men Type: BLOOD SPECIMENOrdering Facility: [facility] Address: [address] [place] [address] Performed By: #### 5 8410-2 ####[facility]ORATORYCLIA [id number] [place] [address] [place] WBC (Bld) [#/Vol] 5.70 10*3/uL Normal 3.70-11.00 [facility] Comment on above: Order Comment: Speci men Type: BLOOD SPECIMENOrdering Facility: [facility] Address: [address] [place] [address] Performed By: #### 5 8410-2 ####[facility]ORATORYCLIA [id number] [place] [address] [place] ECG COMPLETEon 05-12-2022 ECG COMPLETE Normal [facility] Magnesium SerPl-mCncon 05-12 Magnesium [Mass/Vol] 2.1 mg/dL Normal 1.7-2.3 [facility] Comment on above: Order Comment: Salinas yang Type: BLOOD SPECIMENOrdering Facility: [facility] Address: [address] [place] [address] [address] [id number] Performed By: #### 2 4321-2, 12629-6 ####[facility] LABORATORYCLIA [id number] [address] [facility] NURSING PROGon 05-12-2022 NURSING PROG Normal [facility] NUTRITIONon 05-12-2022 NUTRITION Normal [facility] PT EDon 05-12-2022 PT ED Normal [facility] PT panel Coag (PPP)on 2021 INR Coag (PPP) [Relative time] 2.2 {INR} High 0.9-1.3 [facility] Comment on above: Order Comment: Salinas yang Type: BLOOD SPECIMENOrdering Facility: [facility] Address: [address] [address] Result Comment: Miryam min K Antagonist (VKA) Therapeutic Range: INR 2 to 3 (Target INR of 2.5)Note: For patients treated with VKA drugs, such as warfarin, the [place] [employer] 2012 Guideline recommends a therapeutic INR range of 2 to 3 (target INR of 2.5). This recommendation includes high-risk patients with antiphospholipid syndrome with previous arterial or venous thromboembolism, current-generation mechanical or bioprosthetic aortic heart valve replacement.Note: Patients with mechanical aortic valve replacement and additional risk factors for thromboembolic events (atrial fibrillation, previous thromboembolism, LV dysfunction, hypercoagulable conditions) or an older generation mechanical AVR (i.e., ball in-Cage) or any mechanical MVR should have a INR therapeutic range of 2.5 to 3.5 (target INR of 3).Sabrina GH, et al. Chest 2012, 141:7S-47SRenetta RA, et al. [facility] 2017, 70: 252-289 Performed By: #### P [facility], 79256-6 ####[facility] LABORATORYCLIA [id number] [address] [place] PT Coag (PPP) [Time] 22.7 s High 9.7-13.0 [facility] Comment on above: Order Comment: Speceverett yang Type: BLOOD SPECIMENOrdering Facility: [facility] Address: [address] [place] [address] Performed By: #### P TTA, 19664-5 ####[facility] LABORATORYCLIA [id number] [place] [address] [place] INR Coag (PPP) [Relative time] 2.1 {INR} High 0.9-1.3 [facility] Comment on above: Order Comment: Salinas yang Type: BLOOD SPECIMENOrdering Facility: [facility] Address: [address] [place] [address] Result Comment: Miryam min K Antagonist (VKA) Therapeutic Range: INR 2 to 3 (Target INR of 2.5)Note: For patients treated with VKA drugs, such as warfarin, the [place] [employer] 2012 Guideline recommends a therapeutic INR range of 2 to 3 (target INR of 2.5). This recommendation includes high-risk patients with antiphospholipid syndrome with previous arterial or venous thromboembolism, current-generation mechanical or bioprosthetic aortic heart valve replacement.Note: Patients with mechanical aortic valve replacement and additional risk factors for thromboembolic events (atrial fibrillation, previous thromboembolism, LV dysfunction, hypercoagulable conditions) or an older generation mechanical AVR (i.e., ball in-Cage) or any mechanical MVR should have a INR therapeutic range of 2.5 to 3.5 (target INR of 3).Sabrina GH, et al. Chest 2012, 141:7S-47SNishmirian RA, et al. [facility] 2017, 70: 252-289 Performed By: #### 3 4528-0 ####[facility] LABORATORYCLIA [id number] [address] [place] PT Coag (PPP) [Time] 21.9 s High 9.7-13.0 [facility] Comment on above: Order Comment: Speci trey Type: BLOOD SPECIMENOrdering Facility: [facility] Address: [address] [place] [address] Performed By: #### 3 4528-0 ####[facility]ORATORYCLIA [id number] [place] [address] [place] PTT, ANTICOAGULANT THERAPYon 05-12-2022 aPTT Coag (PPP) [Time] 31.3 s Normal 23.0-32.4 [facility] Comment on above: Order Comment: Speci men Type: BLOOD SPECIMENOrdering Facility: [facility] Address: [address] [address] Performed By: #### P TTAC, 89886-7 ####[facility] LABORATORYCLIA [id number] [place] [address] [place] ALLIED HEALTHon 05-11-2022 ALLIED HEALTH Normal [facility] ANES POSTPROC EVALon 022 ANES POSTPROC EVAL Normal [facility] ANES PRE-OPon 05-11-2022 ANES PRE-OP Normal [facility] Basic metabolic 2000 panelon 05-11-2022 Anion gap [Moles/Vol] 10 mmol/L Normal 9-18 [facility] Comment on above: Order Comment: Speci men Type: BLOOD SPECIMENOrdering Facility: [facility] Address: [address] [address] Performed By: #### 1 9123-9, 80563-2 ####[facility] LABORATORYCLIA [id number] [place] [address] [place] Calcium [Mass/Vol] 8.7 mg/dL Normal 8.5-10.2 [facility] Comment on above: Order Comment: Speci men Type: BLOOD SPECIMENOrdering Facility: [facility] Address: [address] [address] [address] Performed By: #### 1 9123-9, 14545-9 ####[facility] LABORATORYCLIA [id number] [place] [address] [place] Chloride [Moles/Vol] 104 mmol/L Normal 97-105 [facility] Comment on above: Order Comment: Speci men Type: BLOOD SPECIMENOrdering Facility: [facility] Address: [address] [place] [address] Performed By: #### 1 91239, 89171-0 ####[facility]ORATORYCLIA [id number] [place] [address] [place] CO2 [Moles/Vol] 25 mmol/L Normal 22-30 [facility] Comment on above: Order Comment: Speci men Type: BLOOD SPECIMENOrdering Facility: [facility] Address: [address] [place] [address] Performed By: #### 1 91239, 75353-0 ####[facility] LABORATORYCLIA [id number] [place] [address] [place] Creatinine [Mass/Vol] 1.40 mg/dL High 0.58-0.96 [facility] Comment on above: Order Comment: Speci men Type: BLOOD SPECIMENOrdering Facility: [facility] Address: [address] [place] [address] Performed By: #### 1 23, 70546-8 ####[facility] LABORATORYCLIA [id number] [place] [address] [place] ESTIMATED GLOMERULAR FILTRATION RATE 41 mL/min/1.73m??? Low >=60 [facility] Comment on above: Order Comment: Speci men Type: BLOOD SPECIMENOrdering Facility: [facility] Address: [address] [place] [address] Result Comment: Cindy mated Glomerular Filtration Rate (eGFR) is calculated using the 2020 CKD-EPI creatinine equation. This equation utilizes serum creatinine, sex, and age as parameters. The creatinine assay has traceable calibration to isotope dilution-mass spectrometry. Refer to KDIGO guidelines for clinical interpretation. In patients with unstable renal function, e.g. those with acute kidney injury, the eGFR may not accurately reflect actual GFR. Performed By: #### 1 9123-9, 36033-9 ####[facility] LABORATORYCLIA [id number] [place] [address] [place] Glucose [Mass/Vol] 112 mg/dL High 74-99 [facility] Comment on above: Order Comment: Salinas yang Type: BLOOD SPECIMENOrdering Facility: [facility] Address: [address] [place] [address] Result Comment: The [place] [employer] (ADA) provides guidance for cutoff values for fasting glucose and random glucose. The ADA defines fasting as no caloric intake for at least 8 hours. Fasting plasma glucose results between 100 to 125 mg/dL indicate increased risk for diabetes (prediabetes).Fasting plasma glucose results greater than or equal to 126 mg/dL meet the criteria for diagnosis of diabetes. In the absence of unequivocal hyperglycemia, results should be confirmed by repeat testing. In a patient with classic symptoms of hyperglycemia or hyperglycemic crisis, random plasma glucose results greater than or equal to 200 mg/dL meet the criteria for diagnosis of diabetes.Reference: Standards of Medical Care in Diabetes 2016, [place] [employer]. Diabetes Care. 2016.39(Suppl 1). Performed By: #### 1 9123-9, 09448-6 ####[facility] LABORATORYCLIA [id number] [place] [address] [place] Potassium [Moles/Vol] 3.5 mmol/L Low 3.7-5.1 [facility] Comment on above: Order Comment: Salinas yang Type: BLOOD SPECIMENOrdering Facility: [facility] Address: [address] [place] [address] Performed By: #### 1 9123-9, 49904-0 ####NetTalonCREST LABORATORYCLIA [id number] [place] [address] [place] Sodium [Moles/Vol] 139 mmol/L Normal 136-144 [facility] Comment on above: Order Comment: Salinas yang Type: BLOOD SPECIMENOrdering Facility: [facility] Address: [address] [place] [address] Performed By: #### 1 9123-9, 10855-0 ####NetTalonCREST LABORATORYCLIA [id number] [place] [address] [place] Urea nitrogen [Mass/Vol] 26 mg/dL High 7-21 [facility] Comment on above: Order Comment: Speci men Type: BLOOD SPECIMENOrdering Facility: [facility] Address: [address] [place] [address] Performed By: #### 1 9123-9, 43390-3 ####[facility] LABORATORYCLIA [id number] [place] [address] [place] Anion gap [Moles/Vol] 12 mmol/L Normal 9-18 [facility] Comment on above: Order Comment: Speci men Type: BLOOD SPECIMENOrdering Facility: [facility] Address: [address] [place] [address] Performed By: #### 2 4321-2, ####[facility] LABORATORYCLIA [id number] [place] [address] [place] Calcium [Mass/Vol] 9.3 mg/dL Normal 8.5-10.2 [facility] Comment on above: Order Comment: Speci men Type: BLOOD SPECIMENOrdering Facility: [facility] Address: [address] [place] [address] Performed By: #### 2 432-2, ####[facility] LABORATORYCLIA [id number] [place] [address] [place] Chloride [Moles/Vol] 103 mmol/L Normal 97-105 [facility] Comment on above: Order Comment: Speci men Type: BLOOD SPECIMENOrdering Facility: [facility] Address: [address] [place] [address] Performed By: #### 2 4321-2, ####[facility] LABORATORYCLIA [id number] [place] [address] [place] CO2 [Moles/Vol] 24 mmol/L Normal 22-30 [facility] Comment on above: Order Comment: Speci men Type: BLOOD SPECIMENOrdering Facility: [facility] Address: [address] [place] [address] Performed By: #### 2 4321-2, ####[facility] LABORATORYCLIA [id number] [place] [address] [place] Creatinine [Mass/Vol] 1.41 mg/dL High 0.58-0.96 [facility] Comment on above: Order Comment: Salinas yang Type: BLOOD SPECIMENOrdering Facility: [facility] Address: [address] [place] [address] Performed By: #### 2 4321-2, ####[facility] LABORATORYCLIA [id number] [place] [address] [place] ESTIMATED GLOMERULAR FILTRATION RATE 41 mL/min/1.73m??? Low >=60 [facility] Comment on above: Order Comment: [place] yang Type: BLOOD SPECIMENOrdering Facility: [facility] Address: [address] [place] [address] Result Comment: Cindy [facility] Glomerular Filtration Rate (eGFR) is calculated using the 2020 CKD-EPI creatinine equation. This equation utilizes serum creatinine, sex, and age as parameters. The creatinine assay has traceable calibration to isotope dilution-mass spectrometry. Refer to KDIGO guidelines for clinical interpretation. In patients with unstable renal function, e.g. those with acute kidney injury, the eGFR may not accurately reflect actual GFR. Performed By: #### 2 4321-, ####[facility] LABORATORYIA [id number] [place] [address] [place] Glucose [Mass/Vol] 85 mg/dL Normal 74-99 [facility] Comment on above: Order Comment: Salinas yang Type: BLOOD SPECIMENOrdering Facility: [facility] Address: [address] [place] [address] Result Comment: The [place] Diabetes Association (ADA) provides guidance for cutoff values for fasting glucose and random glucose. The ADA defines fasting as no caloric intake for at least 8 hours. Fasting plasma glucose results between 100 to 125 mg/dL indicate increased risk for diabetes (prediabetes).Fasting plasma glucose results greater than or equal to 126 mg/dL meet the criteria for diagnosis of diabetes. In the absence of unequivocal hyperglycemia, results should be confirmed by repeat testing. In a patient with classic symptoms of hyperglycemia or hyperglycemic crisis, random plasma glucose results greater than or equal to 200 mg/dL meet the criteria for diagnosis of diabetes.Reference: Standards of Medical Care in Diabetes 2016, [place] [employer]. Diabetes Care. 2016.39(Suppl 1). Performed By: #### 2 4321-2, ####[facility]ATORYCLIA [id number] [place] [address] [place] Potassium [Moles/Vol] 3.9 mmol/L Normal 3.7-5.1 [facility] Comment on above: Order Comment: Speci men Type: BLOOD SPECIMENOrdering Facility: [facility] Address: [address] [place] [address] Performed By: #### 2 4320-2, ####[facility]ORATORYCLIA [id number] [place] [address] [place] Sodium [Moles/Vol] 139 mmol/L Normal 136-144 [facility] Comment on above: Order Comment: Speci men Type: BLOOD SPECIMENOrdering Facility: [facility] Address: [address] [place] [address] Performed By: #### 2 4320-2, ####[facility]ORATORYCLIA [id number] [place] [address] [place] Urea nitrogen [Mass/Vol] 27 mg/dL High 7-21 [facility] Comment on above: Order Comment: Speci men Type: BLOOD SPECIMENOrdering Facility: [facility] Address: [address] [place] [address] Performed By: #### 2 4320-2, ####[facility]ORATORYCLIA [id number] [place] [address] [place] ECG COMPLETEon 05-11-2022 ECG COMPLETE Normal [facility] HISTORY PHYSICALon 2 HISTORY PHYSICAL Normal [facility] Magnesium SerPl-mCncon 05-11 Magnesium [Mass/Vol] 2.0 mg/dL Normal 1.7-2.3 [facility] Comment on above: Order Comment: Speci men Type: BLOOD SPECIMENOrdering Facility: [facility] Address: [address] [place] [address] Performed By: #### 1 9123-9, 64984-7 ####[facility]ORATORYCLIA [id number] [place] [address] [place] Magnesium [Mass/Vol] 2.2 mg/dL Normal 1.7-2.3 [facility] Comment on above: Order Comment: Salinas yang Type: BLOOD SPECIMENOrdering Facility: [facility] Address: [address] [place] [address] Performed By: #### 2 4321-2, 24805-5 ####[facility] LABORATORYCLIA [id number] [address] [place] NURSING PROGon 05-11-2022 NURSING PROG Normal [facility] PT EDon 05-11-2022 PT ED Normal [facility] PT panel Coag (PPP)on 2021 INR Coag (PPP) [Relative time] 2.4 {INR} High 0.9-1.3 [facility] Comment on above: Order Comment: Salinas yang Type: BLOOD SPECIMENOrdering Facility: [facility] Address: [address] [place] [address] Result Comment: Miryam min K Antagonist (VKA) Therapeutic Range: INR 2 to 3 (Target INR of 2.5)Note: For patients treated with VKA drugs, such as warfarin, the [place] [employer] 2012 Guideline recommends a therapeutic INR range of 2 to 3 (target INR of 2.5). This recommendation includes high-risk patients with antiphospholipid syndrome with previous arterial or venous thromboembolism, current-generation mechanical or bioprosthetic aortic heart valve replacement.Note: Patients with mechanical aortic valve replacement and additional risk factors for thromboembolic events (atrial fibrillation, previous thromboembolism, LV dysfunction, hypercoagulable conditions) or an older generation mechanical AVR (i.e., ball in-Cage) or any mechanical MVR should have a INR therapeutic range of 2.5 to 3.5 (target INR of 3).Sabrina DEVINE, et al. Chest 2012, 141:7S-47SNishimura RA, et al. [facility] 2017, 70: 252-289 Performed By: #### 3 4528-0 ####[facility] LABORATORYCLIA [id number] [place] [address] [place] PT Coag (PPP) [Time] 25.0 s High 9.7-13.0 [facility] Comment on above: Order Comment: Speci men Type: BLOOD SPECIMENOrdering Facility: [facility] Address: [address] [place] [address] Performed By: #### 3 4528-0 ####[facility] LABORATORYCLIA [id number] [place] [address] [place] SARS-CoV-2 RNA Resp Ql CASSANDRA+p robeon 05-11-2022 SARS-CoV-2 (COVID-19) RNA CASSANDRA+probe Ql (Resp) SARS-CoV-2 (Agent of COVID-19) Not Detected by RT-PCR or equivalent method. Normal Not Detected [facility] Comment on above: Order Comment: Speci men Type: SWAB OF INTERNAL NOSEOrdering Facility: [facility] Address: [address] [place] [address] Result Comment: This test has been authorized by FDA under an Emergency Use Authorization (EUA). Performed By: #### 9 4500-6 ####[facility] LABORATORYCLIA [id number] [address] [place] PT panel Coag (PPP)on 2021 INR Coag (Bld) [Relative time] 2.6 {INR} 2.5 - 3.5 [facility] PT panel Coag (PPP)on 2021 INR Coag (Bld) [Relative time] 4.5 {INR} Abnormal 2.5 - 3.5 [facility] Basic metabolic 2000 panelon 03-30-2022 Anion gap [Moles/Vol] 11 mmol/L Normal 05-31 [facility] Comment on above: Order Comment: Speci men Type: BLOOD SPECIMENOrdering Facility: [facility] Address: [address] [address] Performed By: #### 2 4320-2, ####[facility]ORATORYCLIA [id number] [place] [address] [place] Calcium [Mass/Vol] 9.2 mg/dL Normal 8.5-10.2 [facility] Comment on above: Order Comment: Speci men Type: BLOOD SPECIMENOrdering Facility: [facility] Address: [address] [place], [place] [address] Performed By: #### 2 4320-2, ####[facility]ORATORYCLIA [id number] [place] [address] [place] Chloride [Moles/Vol] 107 mmol/L High 97-105 [facility] Comment on above: Order Comment: Speci men Type: BLOOD SPECIMENOrdering Facility: [facility] Address: [address] [place] [address] Performed By: #### 2 4320-10, ####[facility]ORATORYCLIA [id number] [place] [address] [place] CO2 [Moles/Vol] 24 mmol/L Normal 22-30 [facility] Comment on above: Order Comment: Speci men Type: BLOOD SPECIMENOrdering Facility: [facility] Address: [address] [place] [address] Performed By: #### 2 2, ####[facility]ATORYCLIA [id number] [place] [address] [place] Creatinine [Mass/Vol] 1.21 mg/dL High 0.58-0.96 [facility] Comment on above: Order Comment: Speci men Type: BLOOD SPECIMENOrdering Facility: [facility] Address: [address] [place], [place] [address] Performed By: #### 2 4320-2, ####[facility]ORATORYCLIA [id number] [place] [address] [place] ESTIMATED GLOMERULAR FILTRATION RATE 49 mL/min/1.73m??? Low >=60 [facility] Comment on above: Order Comment: Salinas yang Type: BLOOD SPECIMENOrdering Facility: [facility] Address: [address] [phone] Result Comment: [facility] Glomerular Filtration Rate (eGFR) is calculated using the 2020 CKD-EPI creatinine equation. This equation utilizes serum creatinine, sex, and age as parameters. The creatinine assay has traceable calibration to isotope dilution-mass spectrometry. Refer to KDIGO guidelines for clinical interpretation. In patients with unstable renal function, e.g. those with acute kidney injury, the eGFR may not accurately reflect actual GFR. Performed By: #### 2 4321-2, 07108-0 ####[facility] LABORATORYCLHydroPoint Data Systems [id number] [place] [address] [place] Glucose [Mass/Vol] 98 mg/dL Normal 74-99 [facility] Comment on above: Order Comment: Salinas yang Type: BLOOD SPECIMENOrdering Facility: [facility] Address: [address] [place] [address] Result Comment: The [place] Diabetes Association (ADA) provides guidance for cutoff values for fasting glucose and random glucose. The ADA defines fasting as no caloric intake for at least 8 hours. Fasting plasma glucose results between 100 to 125 mg/dL indicate increased risk for diabetes (prediabetes).Fasting plasma glucose results greater than or equal to 126 mg/dL meet the criteria for diagnosis of diabetes. In the absence of unequivocal hyperglycemia, results should be confirmed by repeat testing. In a patient with classic symptoms of hyperglycemia or hyperglycemic crisis, random plasma glucose results greater than or equal to 200 mg/dL meet the criteria for diagnosis of diabetes.Reference: Standards of Medical Care in Diabetes 2016, [place] [employer]. Diabetes Care. 2016.39(Suppl 1). Performed By: #### 2 4321-2, 32211-3 ####[facility] LABORATORYCLIA [id number] [place] [id number] [place] Potassium [Moles/Vol] 3.7 mmol/L Normal 3.7-5.1 [facility] Comment on above: Order Comment: Salinas yang Type: BLOOD SPECIMENOrdering Facility: [facility] Address: [address] [address] Performed By: #### 2 4321-2, 94041-4 ####[facility]ORATORYCLIA [id number] [place] [address] [place] Sodium [Moles/Vol] 142 mmol/L Normal 136-144 [facility] Comment on above: Order Comment: Speci men Type: BLOOD SPECIMENOrdering Facility: [facility] Address: [address] [place] [address] Performed By: #### 2 4321-2, ####[facility]ORATORYCLIA [id number] [place] [address] [place] Urea nitrogen [Mass/Vol] 32 mg/dL High 7-21 [facility] Comment on above: Order Comment: Speci men Type: BLOOD SPECIMENOrdering Facility: [facility] Address: [facility] [place] [address] Performed By: #### 2 4320-2, ####[facility]ORATORYCLIA [id number] [place] [address] [place] CBC panel Auto (Bld)on 03-30 Erythrocyte distribution width (RBC) [Ratio] 21.5 % High 11.5-15.0 [facility] Comment on above: Order Comment: Speci men Type: BLOOD SPECIMENOrdering Facility: [facility] Address: [facility] [place] [address] Performed By: #### 5 8410-2 ####[facility]ORATORYCLIA [id number] [place] [address] [place] Hematocrit (Bld) [Volume fraction] 35.2 % Low 36.0-46.0 [facility] Comment on above: Order Comment: Speci men Type: BLOOD SPECIMENOrdering Facility: [facility] Address: [address] [place] [address] Performed By: #### 5 8410-2 ####[facility]ORATORYCLIA [id number] [place] [address] [place] Hemoglobin (Bld) [Mass/Vol] 10.6 g/dL Low 11.5-15.5 [facility] Comment on above: Order Comment: Speci men Type: BLOOD SPECIMENOrdering Facility: [facility] Address: [address] [place] [address] Performed By: #### 5 8410-2 ####[facility]ORATORYCLIA [id number] [place] [address] [place] MCH (RBC) [Entitic mass] 24.8 pg Low 26.0-34.0 [facility] Comment on above: Order Comment: Speci men Type: BLOOD SPECIMENOrdering Facility: [facility] Address: [address] [place] [address] Performed By: #### 5 8410-2 ####[facility] LABORATORYCLIA [id number] [address] [place] MCHC (RBC) [Mass/Vol] 30.1 g/dL Low 30.5-36.0 [facility] Comment on above: Order Comment: Speci men Type: BLOOD SPECIMENOrdering Facility: [facility] Address: [address] [place] [address] Performed By: #### 5 8410-2 ####[facility]ORATORYCLIA [id number] [place] [address] [place] MCV (RBC) [Entitic vol] 82.4 fL Normal 80.0-100.0 [facility] Comment on above: Order Comment: Speci men Type: BLOOD SPECIMENOrdering Facility: [facility] Address: [address] [place] [address] Performed By: #### 5 8410-2 ####[facility]ORATORYCLIA [id number] [address] [place] Nucleated RBC (Bld) [#/Vol] 10*3/uL Normal <0.01 [facility] Comment on above: Order Comment: Speci men Type: BLOOD SPECIMENOrdering Facility: [facility] Address: [address] [place] [address] Performed By: #### 5 8410-2 ####[facility]ORATORYCLIA [id number] [place] [address] [place] Platelet mean volume (Bld) [Entitic vol] 9.3 fL Normal 9.0-12.7 [facility] Comment on above: Order Comment: Speci men Type: BLOOD SPECIMENOrdering Facility: [facility] Address: [address] [place] [address] Performed By: #### 5 8410-2 ####[facility]ORATORYCLIA [id number] [place] [address] [place] Platelets (Bld) [#/Vol] 209 10*3/uL Normal 150-400 [facility] Comment on above: Order Comment: Speci men Type: BLOOD SPECIMENOrdering Facility: [facility] Address: [address] [place] [address] Performed By: #### 5 8410-2 ####[facility]ORATORYCLIA [id number] [place] [address] [place] RBC (Bld) [#/Vol] 4.27 10*6/uL Normal 3.90-5.20 [facility] Comment on above: Order Comment: Speci men Type: BLOOD SPECIMENOrdering Facility: [facility] Address: [address] [place] [address] Performed By: #### 5 8410-2 ####[facility]ORATORYCLIA [id number] [place] [address] [place] WBC (Bld) [#/Vol] 5.67 10*3/uL Normal 3.70-11.00 [facility] Comment on above: Order Comment: Speci men Type: BLOOD SPECIMENOrdering Facility: [facility] Address: [address] [place] [address] Performed By: #### 5 8410-2 ####[facility]ORATORYCLIA [id number] [address] [place] ED NOTEon 03-30-2022 ED NOTE [facility] ED NOTE HNO ID: [id number] Author: Donald Eckert RN Service: ? Author Type: Registered Nurse Type: ED Notes Filed: 03/30/2022 8:52 AM Note Text: Called Zeinab Li MD and MD Drea - pt has appt for cardioversion on 2021 [facility] ED NOTE HNO ID: [id number] Author: Donald Eckert RN Service: ? Author Type: Registered Nurse Type: ED Notes Filed: 03/30/2022 8:24 AM Note Text: Pt reported to be seen by MD Francia office for heart related issue. [facility] ED NOTE HNO ID: [id number] Author: Faith Yu RN Service: ? Author Type: Registered Nurse Type: ED Notes Filed: 03/30/2022 8:16 AM Note Text: Bed: ED-10 Expected date: Expected time: Means of arrival: Comments: Next bed [facility] ED NOTE HNO ID: [id number] Author: Christel Turner RN Service: Nursing Author Type: Registered Nurse Type: ED Notes Filed: 03/30/2022 8:07 AM Note Text: Pt decided to return to window stating she feels her heart thumping and would like to be seen. [facility] ED NOTE Normal [facility] ED PROV NOTEon 03-30-2022 ED PROV NOTE [facility] Magnesium SerPl-mCncon 03-30 Magnesium [Mass/Vol] 2.1 mg/dL Normal 1.7-2.3 [facility] Comment on above: Order Comment: Speci men Type: BLOOD SPECIMENOrdering Facility: [facility] Address: [address] [place] [phone] Performed By: #### 2 4321-2, 38862-6 ####[facility] LABORATORYCLIA [id number] [address] PT panel Coag (PPP)on 2021 INR Coag (PPP) [Relative time] 4.4 {INR} High 0.9-1.3 [facility] Comment on above: Order Comment: Salinas yang Type: BLOOD SPECIMENOrdering Facility: [facility] Address: [address] [place], [place] [phone] Result Comment: Miryam min K Antagonist (VKA) Therapeutic Range: INR 2 to 3 (Target INR of 2.5)Note: For patients treated with VKA drugs, such as warfarin, the [place] [employer] 2012 Guideline recommends a therapeutic INR range of 2 to 3 (target INR of 2.5). This recommendation includes high-risk patients with antiphospholipid syndrome with previous arterial or venous thromboembolism, current-generation mechanical or bioprosthetic aortic heart valve replacement.Note: Patients with mechanical aortic valve replacement and additional risk factors for thromboembolic events (atrial fibrillation, previous thromboembolism, LV dysfunction, hypercoagulable conditions) or an older generation mechanical AVR (i.e., ball in-Cage) or any mechanical MVR should have a INR therapeutic range of 2.5 to 3.5 (target INR of 3).Sabrina GH, et al. Chest 2012, 141:7S-47SNishimvioleta RA, et al. [facility] 2017, 70: 252-289 Performed By: #### 3 4528-0 ####[facility] LABORATORYCLIA [id number] [place] [address] [place] PT Coag (PPP) [Time] 43.9 s High 9.7-13.0 [facility] Comment on above: Order Comment: Salinas yang Type: BLOOD SPECIMENOrdering Facility: [facility] Address: [address] [phone] Performed By: #### 3 4528-0 ####[facility] LABORATORYCLIA [id number] [place] [address] [place] SARS-CoV-2 RNA Resp Ql CASSANDRA+p leonarda 03-30-2022 SARS-CoV-2 (COVID-19) RNA CASSANDRA+probe Ql (Resp) COVID 19 RESULT: SARS-CoV-2 (Agent of COVID-19) Not Detected by RT-PCR or equivalent method. This test has been authorized by FDA under an Emergency Use Authorization (EUA). Normal [facility] Comment on above: Performed By: #### 9 4500-6 ####[facility]ORATORYCLIA [id number] [place] [address] [place] PT panel Coag (PPP)on 2021 INR Coag (Bld) [Relative time] 3.0 {INR} 2.5 - 3.5 [facility] ICD CLINIC CHECKon AV Delay Adaptive Paced Minimum (ms) 240 ms [facility] AV Delay Paced (ms) 150 ms [facility] Bennie LV Pacing Amplitude (volts) 2.8 V [facility] Bennie LV Pacing Pulse Width (ms) 0.4 ms [facility] bennie LV Sensing Amplitude (mvolts) 1 mV [facility] Bennie RA Pacing Amplitude (volts) 4.5 V [facility] Bennie RA Pacing Polarity BI [facility] Bennie RA Pacing Pulse Width (ms) 0.4 ms [facility] Bennie RA Sensing Amplitude (mvolts) 0.3 mV [facility] Bennie RA Sensing Polarity BI [facility] Bennie RV Pacing Amplitude (volts) 2.6 V [facility] Bennie RV Pacing Polarity BI [facility] Bennie RV Pacing Pulse Width (ms) 0.4 ms [facility] Bennie RV Sensing Amplitude (mvolts) 0.3 mV [facility] Bennie RV Sensing Polarity BI [facility] Detection Configuration (Vent) 2 - Zone [facility] FastVT_Detection Interval 273 ms [facility] FastVT_Therapy Configuration 1 ATP(s) + 8 Shock(s) [facility] ICD FastVT DetectionStatus ENABLED [facility] ICD-ATP Episodes (Vent) 0 [facility] ICD-ATRIALFIBRILLATIO N 0 [facility] ICD-Device Mfg BSX [facility] ICD-LEADIMPEDANCEATRI AL 428 ohm [facility] ICD-Percent Pacing (Atrial) 26 % [facility] ICD-Percent Pacing (Vent) 96 % [facility] ICD-Rhythm Atrial Tachycardia [facility] ICD-Shocks Aborted (Vent) 0 [facility] [id number] 0 [facility] ICD-SHOCKSABORTED 0 [facility] ICD-SHOCKSDELIVEREDVE NTRICULAR 0 [facility] ICD-Ventricular Fibrillation 0 [facility] ICD-VVDELAY_MS 0 ms [facility] Lead Impedance (LV) 470 ohm [facility] Lead Impedance (RV) 567 ohm [facility] Lead Impedance High Voltage 78 ohm [facility] Lead1 Mfg BSX [facility] Lead2 Mfg CPM [facility] Lead3 Mfg GDT [facility] Location LV [facility] Location RA [facility] Location RV [facility] Lower Rate (bpm) 70 {beats}/min [facility] LV PACING % 99 % [facility] Max Sensor Rate (bpm) 130 {beats}/min [facility] MDT_PROG_TACHY_ZONE_D ETECTIONS_STATUS ENABLED [facility] Model G138 MOMENTUM X4 [facility] Model 4671 Acuity X4 Straight C [facility] Model 4469 Fineline II Sterox EZ [facility] Model 0180 [place] SG [facility] Pacemaker Dependent? NO [facility] Pacing Mode DDIR [facility] Serial Number [id number] [facility] Serial Number [id number] [facility] Serial Number [id number] [facility] Serial Number [id number] [facility] Test Charge Time 9.8 s [facility] Therapy Status (Vent) Enabled [facility] Thresh LV Capture Amplitude (volts) 1.6 V [facility] Thresh LV Capture Duration (ms) 0.4 ms [facility] Thresh RA Capture Amplitude (volts) 2.7 V [facility] Thresh RA Capture Duration (ms) 0.4 ms [facility] Thresh RA Sensing Amplitude (mvolts) 0.4 mV [facility] Thresh RV Capture Amplitude (VOLTS) 1.3 V [facility] Thresh RV Capture Duration (MS) 0.4 ms [facility] Thresh RV Sensing Amplitude (MVOLTS) 15.7 mV [facility] VF Zone Detection Interval 273 ms [facility] VF Zone Therapy Configuration 1 ATP(s) + 8 Shock(s) [facility] No Panel Informationon 02-11 BLANK _ [facility] ICD-Fast Ventricular Tachycardia 0 [facility] Implant Date 01/08/2022 [facility] Implant Date 08/09/2006 [facility] PT panel Coag (PPP)on 2021 INR Coag (Bld) [Relative time] 3.1 {INR} 2.5 - 3.5 [facility] PT panel Coag (PPP)on 2021 INR Coag (Bld) [Relative time] 1.6 {INR} Abnormal 2.5 - 3.5 [facility] HEALTH 01-09-2022 [facility] CKMB ONLYon 01-09-2022 CK.MB [Mass/Vol] 4.4 ng/mL High <4.4 [facility] Comment on above: Order Comment: Speci men Type: BLOOD SPECIMENOrdering Facility: [facility] Address: [address] [address] Performed By: #### M BE, MAURY ####[facility] LABORATORYCLIA [id number] [place] [address] [place] NURSING PROGon 01-09-2022 NURSING [facility] NURSING [facility] NURSING [facility] TROPONIN Ton 01-09-2022 Troponin T.cardiac [Mass/Vol] 0.133 ug/L High 0.000-0.029 [facility] Comment on above: Order Comment: Speci men Type: BLOOD SPECIMENOrdering Facility: [facility] [facility] Address: [address] [address] Performed By: #### M BE, MAURY ####[facility] LABORATORYCLIA [id number] [place] [address] [place] XR CHEST 2V FRONTAL/LATon XR CHEST 2V FRONTAL/LAT [facility]2022 [facility] Basic metabolic 2000 panelon 01-08-2022 Anion gap [Moles/Vol] 13 mmol/L Normal 9-18 [facility] Comment on above: Order Comment: Speci men Type: BLOOD SPECIMENOrdering Facility: [facility] Address: [address] [address] Performed By: #### 2 4321-2, 11237-6 ####[facility] LABORATORYCLIA [id number] [place] [address] [place] Calcium [Mass/Vol] 9.1 mg/dL Normal 8.5-10.2 [facility] Comment on above: Order Comment: Speci men Type: BLOOD SPECIMENOrdering Facility: [facility] Address: [address] Performed By: #### 2 432-2, ####[facility] LABORATORYCLIA [id number] [place] [address] [place] Chloride [Moles/Vol] 106 mmol/L High 97-105 [facility] Comment on above: Order Comment: Speci men Type: BLOOD SPECIMENOrdering Facility: [facility] Address: [address] [place], [place] [address] Performed By: #### 2 4320-2, ####[facility] LABORATORYCLIA [id number] [place] [address] [place] CO2 [Moles/Vol] 20 mmol/L Low 22-30 [facility] Comment on above: Order Comment: Speci men Type: BLOOD SPECIMENOrdering Facility: [facility] Address: [address] [place] [address] Performed By: #### 2 4320-2, ####[facility] LABORATORYCLIA [id number] [place] [address] [place] Creatinine [Mass/Vol] 1.82 mg/dL High 0.58-0.96 [facility] Comment on above: Order Comment: Speci men Type: BLOOD SPECIMENOrdering Facility: [facility] Address: [address] Performed By: #### 2 4320-2, ####[facility] LABORATORYCLIA [id number] [place] [address] [place] ESTIMATED GLOMERULAR FILTRATION RATE 30 mL/min/1.73m??? Low >=60 [facility] Comment on above: Order Comment: Speci men Type: BLOOD SPECIMENOrdering Facility: [facility] Address: [address] [place] [address] Result Comment: Cindy mated Glomerular Filtration Rate (eGFR) is calculated using the 2020 CKD-EPI creatinine equation. This equation utilizes serum creatinine, sex, and age as parameters. The creatinine assay has traceable calibration to isotope dilution-mass spectrometry. Refer to KDIGO guidelines for clinical interpretation. In patients with unstable renal function, e.g. those with acute kidney injury, the eGFR may not accurately reflect actual GFR. Performed By: #### 2 432-, ####[facility] LABORATORYCLIA [id number] [place] [address] [place] Glucose [Mass/Vol] 103 mg/dL High 74-99 [facility] Comment on above: Order Comment: Salinas yang Type: BLOOD SPECIMENOrdering Facility: [facility] Address: [address] [id number] Result Comment: The [place] Diabetes [employer] (ADA) provides guidance for cutoff values for fasting glucose and random glucose. The ADA defines fasting as no caloric intake for at least 8 hours. Fasting plasma glucose results between 100 to 125 mg/dL indicate increased risk for diabetes (prediabetes).Fasting plasma glucose results greater than or equal to 126 mg/dL meet the criteria for diagnosis of diabetes. In the absence of unequivocal hyperglycemia, results should be confirmed by repeat testing. In a patient with classic symptoms of hyperglycemia or hyperglycemic crisis, random plasma glucose results greater than or equal to 200 mg/dL meet the criteria for diagnosis of diabetes.Reference: Standards of Medical Care in Diabetes 2016, [place] [employer]. Diabetes Care. 2016.39(Suppl 1). Performed By: #### 2 4320-10, ####[facility] LABORATORYCLIA [id number] [place] [address] [place] Potassium [Moles/Vol] 3.8 mmol/L Normal 3.7-5.1 [facility] Comment on above: Order Comment: Salinas yang Type: BLOOD SPECIMENOrdering Facility: [facility] Address: [address] [place] [address] Performed By: #### 2 432-, ####[facility] LABORATORYCLIA [id number] [place] [address] [place] Sodium [Moles/Vol] 139 mmol/L Normal 136-144 [facility] Comment on above: Order Comment: Speci men Type: BLOOD SPECIMENOrdering Facility: [facility] Address: [address] [address] Performed By: #### 2 4321-2, 41074-7 ####[facility] LABORATORYCLIA [id number] [place] [address] [place] Urea nitrogen [Mass/Vol] 36 mg/dL High 7-21 [facility] Comment on above: Order Comment: Speci men Type: BLOOD SPECIMENOrdering Facility: [facility] Address: [facility] [address] [address] Performed By: #### 2 4321-2, ####[facility]ORATORYCLIA [id number] [place] [address] [place] CBC panel Auto (Bld)on 01-08 Erythrocyte distribution width (RBC) [Ratio] 19.3 % High 11.5-15.0 [facility] Comment on above: Order Comment: Speci men Type: BLOOD SPECIMENOrdering Facility: [facility] Address: [facility] [address] [address] Performed By: #### 5 8410-2 ####[facility] LABORATORYCLIA [id number] [place] [address] [place] Hematocrit (Bld) [Volume fraction] 33.6 % Low 36.0-46.0 [facility] Comment on above: Order Comment: Speci men Type: BLOOD SPECIMENOrdering Facility: [facility] Address: [address] [address] Performed By: #### 5 8410-2 ####[facility] LABORATORYCLIA [id number] [place] [address] [place] Hemoglobin (Bld) [Mass/Vol] 9.7 g/dL Low 11.5-15.5 [facility] Comment on above: Order Comment: Speci men Type: BLOOD SPECIMENOrdering Facility: [facility] Address: [address] [place] [address] [address] [address] Performed By: #### 5 8410-2 ####[facility] LABORATORYCLIA [id number] [address] STATES [facility] MCH (RBC) [Entitic mass] 23.5 pg Low 26.0-34.0 [facility] Comment on above: Order Comment: Speci men Type: BLOOD SPECIMENOrdering Facility: [facility] Address: [address] [place] [address] Performed By: #### 5 8410-2 ####[facility] LABORATORYCLIA [id number] [address] [place] MCHC (RBC) [Mass/Vol] 28.9 g/dL Low 30.5-36.0 [facility] Comment on above: Order Comment: Speci men Type: BLOOD SPECIMENOrdering Facility: [facility] Address: [address] [place] [address] Performed By: #### 5 8410-2 ####[facility] LABORATORYCLIA [id number] [address] [place] MCV (RBC) [Entitic vol] 81.4 fL Normal 80.0-100.0 [facility] Comment on above: Order Comment: Speci men Type: BLOOD SPECIMENOrdering Facility: [facility] Address: [address] [place] [address] Performed By: #### 5 8410-2 ####[facility] LABORATORYCLIA [id number] [address] Nucleated RBC (Bld) [#/Vol] 10*3/uL Normal <0.01 [facility] Comment on above: Order Comment: Speci men Type: BLOOD SPECIMENOrdering Facility: [facility] Address: [address] [place] [address] Performed By: #### 5 8410-2 ####[facility] LABORATORYCLIA [id number] [address] [place] Platelet mean volume (Bld) [Entitic vol] 9.3 fL Normal 9.0-12.7 [facility] Comment on above: Order Comment: Speci men Type: BLOOD SPECIMENOrdering Facility: [facility] Address: [address] [place] [address] Performed By: #### 5 8410-2 ####[facility]ORATORYCLIA [id number] [place] [address] [place] Platelets (Bld) [#/Vol] 236 10*3/uL Normal 150-400 [facility] Comment on above: Order Comment: Speci men Type: BLOOD SPECIMENOrdering Facility: [facility] Address: [address] [place] [address] Performed By: #### 5 8410-2 ####[facility] LABORATORYCLIA [id number] [place] [address] [place] RBC (Bld) [#/Vol] 4.13 10*6/uL Normal 3.90-5.20 [facility] Comment on above: Order Comment: Speci men Type: BLOOD SPECIMENOrdering Facility: [facility] Address: [address] [place] [address] Performed By: #### 5 8410-2 ####[facility] LABORATORYCLIA [id number] [place] [address] [place] WBC (Bld) [#/Vol] 6.60 10*3/uL Normal 3.70-11.00 [facility] Comment on above: Order Comment: Speci men Type: BLOOD SPECIMENOrdering Facility: [facility] Address: [address] [place] [address] Performed By: #### 5 8410-2 ####[facility]ORATORYCLIA [id number] [place] [address] [place] Erythrocyte distribution width (RBC) [Ratio] 21.4 % High 11.5-15.0 [facility] Comment on above: Order Comment: Speci men Type: BLOOD SPECIMENOrdering Facility: [facility] Address: [address] [place] [address] Performed By: #### 5 8410-2 ####[facility]ORATORYCLIA [id number] [address] [place] Hematocrit (Bld) [Volume fraction] 34.8 % Low 36.0-46.0 [facility] Comment on above: Order Comment: Speci men Type: BLOOD SPECIMENOrdering Facility: [facility] Address: [address] [place] [address] Performed By: #### 5 8410-2 ####[facility]ORATORYCLIA [id number] [address] [place] Hemoglobin (Bld) [Mass/Vol] 10.3 g/dL Low 11.5-15.5 [facility] Comment on above: Order Comment: Speci men Type: BLOOD SPECIMENOrdering Facility: [facility] Address: [address] [place] [address] Performed By: #### 5 8410-2 ####[facility] LABORATORYCLIA [id number] [address] STATES [facility] MCH (RBC) [Entitic mass] 24.9 pg Low 26.0-34.0 [facility] Comment on above: Order Comment: Speci men Type: BLOOD SPECIMENOrdering Facility: [facility] Address: [address] [place] [address] Performed By: #### 5 8410-2 ####[facility] LABORATORYCLIA [id number] [address] [place] MCHC (RBC) [Mass/Vol] 29.6 g/dL Low 30.5-36.0 [facility] Comment on above: Order Comment: Speci men Type: BLOOD SPECIMENOrdering Facility: [facility] Address: [address] [place] [address] Performed By: #### 5 8410-2 ####[facility]ORATORYCLIA [id number] [address] [place] MCV (RBC) [Entitic vol] 84.1 fL Normal 80.0-100.0 [facility] Comment on above: Order Comment: Speci men Type: BLOOD SPECIMENOrdering Facility: [facility] Address: [address] [place], [place] [address] Performed By: #### 5 8410-2 ####[facility] LABORATORYCLIA [id number] [place] [address] [place] Nucleated RBC (Bld) [#/Vol] 10*3/uL Normal <0.01 [facility] Comment on above: Order Comment: Speci men Type: BLOOD SPECIMENOrdering Facility: [facility] Address: [address] [place] [address] Performed By: #### 5 8410-2 ####[facility] LABORATORYCLIA [id number] [place] [address] [place] Platelet mean volume (Bld) [Entitic vol] 9.0 fL Normal 9.0-12.7 [facility] Comment on above: Order Comment: Speci men Type: BLOOD SPECIMENOrdering Facility: [facility] Address: [address] [place] [address] Performed By: #### 5 8410-2 ####[facility] LABORATORYCLIA [id number] [place] [address] [place] Platelets (Bld) [#/Vol] 205 10*3/uL Normal 150-400 [facility] Comment on above: Order Comment: Speci men Type: BLOOD SPECIMENOrdering Facility: [facility] Address: [address] [place], [place] [address] Performed By: #### 5 8410-2 ####[facility]ORATORYCLIA [id number] [place] [address] [place] RBC (Bld) [#/Vol] 4.14 10*6/uL Normal 3.90-5.20 [facility] Comment on above: Order Comment: Speci men Type: BLOOD SPECIMENOrdering Facility: [facility] Address: [address] [place], [place] [address] Performed By: #### 5 8410-2 ####[facility] LABORATORYCLIA [id number] [place] [address] [place] WBC (Bld) [#/Vol] 7.61 10*3/uL Normal 3.70-11.00 [facility] Comment on above: Order Comment: Speci men Type: BLOOD SPECIMENOrdering Facility: [facility] Address: [address] [place] [address] Performed By: #### 5 8410-2 ####[facility] LABORATORYCLIA [id number] [place] [address] [place] CKMB ONLYon 01-08-2022 CK.MB [Mass/Vol] 5.3 ng/mL High <4.4 [facility] Comment on above: Order Comment: Speci men Type: BLOOD SPECIMENOrdering Facility: [facility] Address: [address] [place] [address] Performed By: #### 2 4362-6, MAURY, MBE ####[facility] LABORATORYCLIA [id number] [place] [address] [place] HISTORY PHYSICALon HISTORY PHYSICAL Normal [facility] Magnesium SerPl-mCncon 01-08 Magnesium [Mass/Vol] 2.1 mg/dL Normal 1.7-2.3 [facility] Comment on above: Order Comment: Speci men Type: BLOOD SPECIMENOrdering Facility: [facility] Address: [address] [place] [address] Performed By: #### 2 4321-2, 39934-1 ####[facility] LABORATORYCLIA [id number] [place] [address] [place] NURSING PROGon 01-08-2022 NURSING PROG Normal [facility] NURSING PROG Normal [facility] PT panel Coag (PPP)on 2021 INR Coag (PPP) [Relative time] 2.4 {INR} High 0.9-1.3 [facility] Comment on above: Order Comment: Speci men Type: BLOOD SPECIMENOrdering Facility: [facility] Address: [address] [place] [address] Result Comment: Miryam min K Antagonist (VKA) Therapeutic Range: INR 2 to 3 (Target INR of 2.5)Note: For patients treated with VKA drugs, such as warfarin, the [place] [employer] 2012 Guideline recommends a therapeutic INR range of 2 to 3 (target INR of 2.5). This recommendation includes high-risk patients with antiphospholipid syndrome with previous arterial or venous thromboembolism, current-generation mechanical or bioprosthetic aortic heart valve replacement.Note: Patients with mechanical aortic valve replacement and additional risk factors for thromboembolic events (atrial fibrillation, previous thromboembolism, LV dysfunction, hypercoagulable conditions) or an older generation mechanical AVR (i.e., ball in-Cage) or any mechanical MVR should have a INR therapeutic range of 2.5 to 3.5 (target INR of 3).Sabrina GH, et al. Chest 2012, 141:7S-47SNishimura RA, et al. [facility] 2017, 70: 252-289 Performed By: #### 3 4528-0 ####[facility]on[facility] LABORATORYCLIA [id number] [place] [address] [place] PT Coag (PPP) [Time] 24.2 s High 9.7-13.0 [facility] Comment on above: Order Comment: Salinas yang Type: BLOOD SPECIMENOrdering Facility: [facility] Address: [address] [place] [address] Performed By: #### 3 4528-0 ####[facility] LABORATORYCLIA [id number] [place] [address] [place] Renal function 2000 panelon 01-08-2022 Albumin [Mass/Vol] 3.7 g/dL Low 3.9-4.9 [facility] Comment on above: Order Comment: [place] yang Type: BLOOD SPECIMENOrdering Facility: [facility] Address: [address] [place] [address] Performed By: #### 2 4362-6, MAURY, MBE ####[facility] LABORATORYCLIA [id number] [place] [address] [place] Anion gap [Moles/Vol] 12 mmol/L Normal 9-18 [facility] Comment on above: Order Comment: Speci men Type: BLOOD SPECIMENOrdering Facility: [facility] Address: [facility] [address] [place] [address] Performed By: #### 2 4362-6, MAURY, MBE ####[facility] LABORATORYCLIA [id number] [place] [address] [place] Calcium [Mass/Vol] 8.6 mg/dL Normal 8.5-10.2 [facility] Comment on above: Order Comment: Speci men Type: BLOOD SPECIMENOrdering Facility: [facility] Address: [address] [place] [address] Performed By: #### 2 4362-6, MAURY, MBE ####[facility] LABORATORYCLIA [id number] [place] [address] [place] Chloride [Moles/Vol] 105 mmol/L Normal 97-105 [facility] Comment on above: Order Comment: Speci men Type: BLOOD SPECIMENOrdering Facility: [facility] Address: [address] [place] [address] Performed By: #### 2 4362-6, MAURY, MBE ####[facility] LABORATORYCLIA [id number] [place] [address] [place] CO2 [Moles/Vol] 22 mmol/L Normal 22-30 [facility] Comment on above: Order Comment: Speci men Type: BLOOD SPECIMENOrdering Facility: [facility] Address: [address] [place] [address] Performed By: #### 2 4362-6, MAURY, MBE ####[facility] LABORATORYCLIA [id number] [place] [address] [place] Creatinine [Mass/Vol] 1.67 mg/dL High 0.58-0.96 [facility] Comment on above: Order Comment: Speci men Type: BLOOD SPECIMENOrdering Facility: [facility] Address: [address] [place] [address] Performed By: #### 2 4362-6MAURY MBE ####[facility] LABORATORYCLIA [id number] [place] [address] [place] ESTIMATED GLOMERULAR FILTRATION RATE 33 mL/min/1.73m??? Low >=60 [facility] Comment on above: Order Comment: [place] yang Type: BLOOD SPECIMENOrdering Facility: [facility] Address: [address] [place] [address] Result Comment: [facility] Glomerular Filtration Rate (eGFR) is calculated using the 2020 CKD-EPI creatinine equation. This equation utilizes serum creatinine, sex, and age as parameters. The creatinine assay has traceable calibration to isotope dilution-mass spectrometry. Refer to KDIGO guidelines for clinical interpretation. In patients with unstable renal function, e.g. those with acute kidney injury, the eGFR may not accurately reflect actual GFR. Performed By: #### 2 4362-6MAURY MBE ####[facility] LABORATORYCLIA [id number] [place] [address] [place] Glucose [Mass/Vol] 111 mg/dL High 74-99 [facility] Comment on above: Order Comment: [place] yang Type: BLOOD SPECIMENOrdering Facility: [facility] Address: [address] [place] [address] Result Comment: The [place] Diabetes Association (ADA) provides guidance for cutoff values for fasting glucose and random glucose. The ADA defines fasting as no caloric intake for at least 8 hours. Fasting plasma glucose results between 100 to 125 mg/dL indicate increased risk for diabetes (prediabetes).Fasting plasma glucose results greater than or equal to 126 mg/dL meet the criteria for diagnosis of diabetes. In the absence of unequivocal hyperglycemia, results should be confirmed by repeat testing. In a patient with classic symptoms of hyperglycemia or hyperglycemic crisis, random plasma glucose results greater than or equal to 200 mg/dL meet the criteria for diagnosis of diabetes.Reference: Standards of Medical Care in Diabetes 2016, [place] [employer]. Diabetes Care. 2016.39(Suppl 1). Performed By: #### 2 4362-6MAURY MBE ####[facility] LABORATORYCLIA [id number] [place] [address] [place] Phosphate [Mass/Vol] 3.3 mg/dL Normal 2.7-4.8 [facility] Comment on above: Order Comment: Speci men Type: BLOOD SPECIMENOrdering Facility: [facility] Address: [address] [place] [address] Performed By: #### 2 4362-6, MAURY, SUSANA ####[facility] LABORATORYCLIA [id number] [place] [address] [place] Potassium [Moles/Vol] 3.7 mmol/L Normal 3.7-5.1 [facility] Comment on above: Order Comment: Speci men Type: BLOOD SPECIMENOrdering Facility: [facility] Address: [address] [place] [address] Performed By: #### 2 4362-6, MAURY, MBIris ####[facility] LABORATORYCLIA [id number] [place] [address] [place] Sodium [Moles/Vol] 139 mmol/L Normal 136-144 [facility] Comment on above: Order Comment: Speci men Type: BLOOD SPECIMENOrdering Facility: [facility] Address: [address] [place] [address] Performed By: #### 2 4362-6, MAURY, MBE ####[facility] LABORATORYCLIA [id number] [place] [address] [place] Urea nitrogen [Mass/Vol] 30 mg/dL High 7-21 [facility] Comment on above: Order Comment: Speci men Type: BLOOD SPECIMENOrdering Facility: [facility] Address: [address] [place] [address] Performed By: #### 2 4362-6, MAURY, MBE ####[facility] LABORATORYCLIA [id number] [place] [address] [place] SARS-CoV-2 RNA Resp Ql CASSANDRA+p gonzalezejorge alberto 01-08-2022 SARS-CoV-2 (COVID-19) RNA CASSANDRA+probe Ql (Resp) COVID 19 RESULT: SARS-CoV-2 (Agent of COVID-19) Not Detected by RT-PCR or equivalent method. This test has been authorized by FDA under an Emergency Use Authorization (EUA). [facility] Comment on above: Performed By: #### 9 4500-6 ####[facility] LABORATORYCLIA [id number] [address] [place] SURGICAL PATHOLOGYon 022 CASE REPORT Normal [facility] Comment on above: Order Comment: Speci men Type: DEVICE SPECIMENOrdering Facility: [facility] Address: [address] [place] [address] Result Comment: Surg ical Pathology Report Case: [id number] Provider: Oneyda Guy MD Collected: 01/08/2022 12:18 PMOrdering Location: [facility] Received: 01/08/2022 12:49 PM Diagnostic Procedure CenterPathologist: ARY Johnsonpecimen: DEVICE, ICD generator Performed By: #### S ####[facility] LABORATORYCLIA [id number] [address] FINAL DIAGNOSIS [facility] Comment on above: Order Comment: Speci men Type: DEVICE SPECIMENOrdering Facility: [facility] Address: [address] [place] [address] Result Comment: A. C hest pocket device, removal:- Generator (gross examination only).TP/HARINI 01/08/22 Performed By: #### S ####[facility] LABORATORYCLIA [id number] [address] FINAL PERFORMING LAB [facility] Comment on above: Order Comment: Speci men Type: DEVICE SPECIMENOrdering Facility: [facility] Address: [address] [place] [address] Result Comment: Diag nostic interpretation performed at [facility], [address] [facility], [place] [address] CLIA# [id number] Director: Bernadette Peter M.D. Performed By: #### S ####[facility] LABORATORYIA [id number] [place] [address] [place] GROSS DESCRIPTION A. DEVICE. Normal [facility] Comment on above: Order Comment: Speci men Type: DEVICE SPECIMENOrdering Facility: [facility] Address: [address] [place] [address] Result Comment: Rece ived fresh labeled ICD generator is a 7.3 x 6.2 x 1.4 cm so-metallic battery generated device. The device is inscribed [employer], [employer], Type DDDR, Model E143, SN [id number]. No tissue is present. No sections are submitted. The specimen is reviewed with Dr. Kirby.Gross examination performed at [facility], [address] [place] [address] CLIA# [id number] 01/08/22 Performed By: #### S ####[facility] LABORATORYIA [id number] [place] [address] [place] TROPONIN Ton 01-08-2022 Troponin T.cardiac [Mass/Vol] 0.128 ug/L High 0.000-0.029 [facility] Comment on above: Order Comment: Speci men Type: BLOOD SPECIMENOrdering Facility: [facility] Address: [address] [place] [address] Performed By: #### 2 [id number], MAURY, MBE ####[facility] LABORATORYCLIA [id number] [place] [address] [place] X[place] CHEST 1V FRONTAL PORTon 0 01-08-2022 XR CHEST 1V FRONTAL PORT [facility] XR CHEST 1V FRONTAL PORT [facility] PT panel Coag (PPP)on 2021 INR Coag (Bld) [Relative time] 2.5 {INR} 2.5 - 3.5 [facility] ANES PRE-OPon 10-09-2021 ANES PRE-OP Normal [facility] APTTon 10-07-2021 aPTT Coag (Bld) [Time] 50.6 s High 23.0-32.4 [facility] Comment on above: Result Comment: Unfr actionated Heparin Therapeutic Ranges:Standard Heparin Nomogram: 53 to 78 seconds (anti-Xa level of 0.3 to 0.7 U/ml)Low Dose/ACS Nomogram: 49 to 67 seconds (anti-Xa level of 0.2 to 0.5 U/ml)Stroke Treatment Nomogram: 49 to 67 seconds (anti-Xa level of 0.2 to 0.5 U/ml)Note: The APTT therapeutic range has been determined for the current lot of laboratory APTT reagent in use throughout the [facility]. aPTT Coag (Bld) [Time] 72.5 s High 23.0-32.4 [facility] Comment on above: Result Comment: Unfr actionated Heparin Therapeutic Ranges:Standard Heparin Nomogram: 53 to 78 seconds (anti-Xa level of 0.3 to 0.7 U/ml)Low Dose/ACS Nomogram: 49 to 67 seconds (anti-Xa level of 0.2 to 0.5 U/ml)Stroke Treatment Nomogram: 49 to 67 seconds (anti-Xa level of 0.2 to 0.5 U/ml)Note: The APTT therapeutic range has been determined for the current lot of laboratory APTT reagent in use throughout the [facility]. Basic Metabolic Panlon 10-07 Anion gap [Moles/Vol] 9 mmol/L Normal 9-18 [facility] Calcium [Mass/Vol] 9.0 mg/dL Normal 8.5-10.2 [facility] Chloride [Moles/Vol] 106 mmol/L High 97-105 [facility] CO2 [Moles/Vol] 23 mmol/L Normal 22-33 [facility] Creatinine [Mass/Vol] 1.24 mg/dL High 0.58-0.96 [facility] eGFR- Amer. 52 Normal [facility] eGFR-All Other Races 43 . Normal [facility] Comment on above: Result Comment: eGFR (Estimated GFR) Units of measure: mL/min/1.73 meters squaredeGFR is derived from the reexpressed MDRD Study equation using the following parameters: serum creatinine, age, gender and race. The creatinine assay has been calibrated to be traceable to IDMS.An eGFR <60 mL/min/1.73m2 for >3 months is consistent with chronic kidney disease. Refer to KDOQI guidelines for clinical interpretation.In patients with unstable renal function, e.g. those with acute kidney injury, the eGFR may not accurately reflect actual GFR.Note: On 11/08/2021, the eGFR calculation will be updated to the NKF-ASN Task Force recommended 2020 CKD-EPI creatinine equation which does not include a race variable. For more information or to access a 2020 CKD-EPI calculator, visit the National Kidney Foundation website at [email or web address]/professionals/kdoqi/gfr_calculator. Glucose [Mass/Vol] 100 mg/dL High 74-99 [facility] Potassium [Moles/Vol] 4.2 mmol/L Normal 3.7-5.1 [facility] Sodium [Moles/Vol] 138 mmol/L Normal 136-144 [facility] Urea nitrogen [Mass/Vol] 21 mg/dL Normal 7-21 [facility] CASE MANAGEMon 10-07-2021 CASE MANAGEM Normal [facility] CASE MANAGEM Normal [facility] CBCon 10-07-2021 Absolute nRBC <0.01 Normal <0.01 [facility] Erythrocyte distribution width (RBC) [Ratio] 17.3 % High 11.5-15.0 [facility] Hematocrit (Bld) [Volume fraction] 28.7 % Low 36.0-46.0 [facility] Hemoglobin (Bld) [Mass/Vol] 8.8 g/dL Low 11.5-15.5 [facility] MCH 30.7 pG Normal 26.0-34.0 [facility] MCHC (RBC) [Mass/Vol] 30.7 g/dL Normal 30.5-36.0 [facility] MCV (RBC) [Entitic vol] 100.0 fL Normal 80.0-100.0 [facility] Platelet mean volume (Bld) [Entitic vol] 9.7 fL Normal 9.0-12.7 [facility] Platelets (Bld) [#/Vol] 233 10*3/uL Normal 150-400 [facility] RBC (Bld) [#/Vol] 2.87 10*6/uL Low 3.90-5.20 [facility] WBC (Bld) [#/Vol] 5.22 10*3/uL Normal 3.70-11.00 [facility] CNDSon 10-07-2021 CNDS Normal [facility] NURSING PROGon 10-07-2021 NURSING PROG Normal [facility] NURSING PROG [facility] NURSING PROG [facility] NUTRITIONon 10-07-2021 NUTRITION [facility] Protimeon 10-07-2021 PT INR 2.6 High 0.9-1.3 [facility] Comment on above: Result Comment: Miryam min K Antagonist (VKA) Therapeutic Range: INR 2 to 3 (Target INR of 2.5)Note: For patients treated with VKA drugs, such as warfarin, the [place] [employer] 2012 Guideline recommends a therapeutic INR range of 2 to 3 (target INR of 2.5). This recommendation includes high-risk patients with antiphospholipid syndrome with previous arterial or venous thromboembolism, current-generation mechanical or bioprosthetic aortic heart valve replacement.Note: Patients with mechanical aortic valve replacement and additional risk factors for thromboembolic events (atrial fibrillation, previous thromboembolism, LV dysfunction, hypercoagulable conditions) or an older generation mechanical AVR (i.e., ball in-Cage) or any mechanical MVR should have a INR therapeutic range of 2.5 to 3.5 (target INR of 3).Sabrina GH, et al. Chest 2012, 141:7S-47SRenetta BOWER, et al. [facility] 2017, 70: 252-289 PT Sec 27.0 sec High 9.7-13.0 [facility] PT INR 2.2 High 0.9-1.3 [facility] Comment on above: Result Comment: Miryam min K Antagonist (VKA) Therapeutic Range: INR 2 to 3 (Target INR of 2.5)Note: For patients treated with VKA drugs, such as warfarin, the [place] [employer] 2012 Guideline recommends a therapeutic INR range of 2 to 3 (target INR of 2.5). This recommendation includes high-risk patients with antiphospholipid syndrome with previous arterial or venous thromboembolism, current-generation mechanical or bioprosthetic aortic heart valve replacement.Note: Patients with mechanical aortic valve replacement and additional risk factors for thromboembolic events (atrial fibrillation, previous thromboembolism, LV dysfunction, hypercoagulable conditions) or an older generation mechanical AVR (i.e., ball in-Cage) or any mechanical MVR should have a INR therapeutic range of 2.5 to 3.5 (target INR of 3).Sabrina DEVINE, et al. Chest 2012, 141:7S-47SNishimura RA, et al. JAC 2017, 70: 252-289 PT Sec 22.6 sec High 9.7-13.0 [facility] APTTon 10-06-2021 aPTT Coag (Bld) [Time] 114.8 s High 23.0-32.4 [facility] Comment on above: Result Comment: Unfr actionated Heparin Therapeutic Ranges:Standard Heparin Nomogram: 53 to 78 seconds (anti-Xa level of 0.3 to 0.7 U/ml)Low Dose/ACS Nomogram: 49 to 67 seconds (anti-Xa level of 0.2 to 0.5 U/ml)Stroke Treatment Nomogram: 49 to 67 seconds (anti-Xa level of 0.2 to 0.5 U/ml)Note: The APTT therapeutic range has been determined for the current lot of laboratory APTT reagent in use throughout the [facility].Called to and read back by:Gary Arevalo RN Aragon 5W 10/06/[id number] [facility] aPTT Coag (Bld) [Time] 42.7 s High 23.0-32.4 [facility] Comment on above: Result Comment: Unfr actionated Heparin Therapeutic Ranges:Standard Heparin Nomogram: 53 to 78 seconds (anti-Xa level of 0.3 to 0.7 U/ml)Low Dose/ACS Nomogram: 49 to 67 seconds (anti-Xa level of 0.2 to 0.5 U/ml)Stroke Treatment Nomogram: 49 to 67 seconds (anti-Xa level of 0.2 to 0.5 U/ml)Note: The APTT therapeutic range has been determined for the current lot of laboratory APTT reagent in use throughout the [facility]. Basic Metabolic Panlon 10-06 Anion gap [Moles/Vol] 13 mmol/L Normal 9-18 [facility] Calcium [Mass/Vol] 9.2 mg/dL Normal 8.5-10.2 [facility] Chloride [Moles/Vol] 110 mmol/L High 97-105 [facility] CO2 [Moles/Vol] 21 mmol/L Low 22-33 [facility] Creatinine [Mass/Vol] 1.24 mg/dL High 0.58-0.96 [facility] eGFR- Amer. 52 Normal [facility] eGFR-All Other Races 43 . Normal [facility] Comment on above: Result Comment: eGFR (Estimated GFR) Units of measure: mL/min/1.73 meters squaredeGFR is derived from the reexpressed MDRD Study equation using the following parameters: serum creatinine, age, gender and race. The creatinine assay has been calibrated to be traceable to IDMS.An eGFR <60 mL/min/1.73m2 for >3 months is consistent with chronic kidney disease. Refer to KDOQI guidelines for clinical interpretation.In patients with unstable renal function, e.g. those with acute kidney injury, the eGFR may not accurately reflect actual GFR.Note: On 11/08/2021, the eGFR calculation will be updated to the NKF-ASN Task Force recommended 2020 CKD-EPI creatinine equation which does not include a race variable. For more information or to access a 2020 CKD-EPI calculator, visit the National Kidney Foundation website at [email or web address]/professionals/kdoqi/gfr_calculator. Glucose [Mass/Vol] 115 mg/dL High 74-99 [facility] Potassium [Moles/Vol] 4.7 mmol/L Normal 3.7-5.1 [facility] Sodium [Moles/Vol] 144 mmol/L Normal 136-144 [facility] Urea nitrogen [Mass/Vol] 18 mg/dL Normal 7-21 [facility] CASE MANAGEMon 10-06-2021 CASE MANAGEM Normal [facility] CBCon 10-06-2021 Absolute nRBC <0.01 Normal <0.01 [facility] Erythrocyte distribution width (RBC) [Ratio] 16.7 % High 11.5-15.0 [facility] Hematocrit (Bld) [Volume fraction] 26.7 % Low 36.0-46.0 [facility] Hemoglobin (Bld) [Mass/Vol] 8.2 g/dL Low 11.5-15.5 [facility] MCH 30.3 pG Normal 26.0-34.0 [facility] MCHC (RBC) [Mass/Vol] 30.7 g/dL Normal 30.5-36.0 [facility] MCV (RBC) [Entitic vol] 98.5 fL Normal 80.0-100.0 [facility] Platelet mean volume (Bld) [Entitic vol] 10.1 fL Normal 9.0-12.7 [facility] Platelets (Bld) [#/Vol] 187 10*3/uL Normal 150-400 [facility] RBC (Bld) [#/Vol] 2.71 10*6/uL Low 3.90-5.20 [facility] WBC (Bld) [#/Vol] 5.79 10*3/uL Normal 3.70-11.00 [facility] NURSING PROGon 10-06-2021 NURSING PROG Normal [facility] PT EDon 10-06-2021 PT ED Normal [facility] PTT,Anticoag Therapyon 10-06 aPTT Coag (Bld) [Time] 46.1 s High 23.0-32.4 [facility] Comment on above: Result Comment: Unfr actionated Heparin Therapeutic Ranges:Standard Heparin Nomogram: 53 to 78 seconds (anti-Xa level of 0.3 to 0.7 U/ml)Low Dose/ACS Nomogram: 49 to 67 seconds (anti-Xa level of 0.2 to 0.5 U/ml)Stroke Treatment Nomogram: 49 to 67 seconds (anti-Xa level of 0.2 to 0.5 U/ml)Note: The APTT therapeutic range has been determined for the current lot of laboratory APTT reagent in use throughout the [facility]. Protimeon 10-06-2021 PT INR 1.5 High 0.9-1.3 [facility] Comment on above: Result Comment: Miryam min K Antagonist (VKA) Therapeutic Range: INR 2 to 3 (Target INR of 2.5)Note: For patients treated with VKA drugs, such as warfarin, the [place] [employer] 2012 Guideline recommends a therapeutic INR range of 2 to 3 (target INR of 2.5). This recommendation includes high-risk patients with antiphospholipid syndrome with previous arterial or venous thromboembolism, current-generation mechanical or bioprosthetic aortic heart valve replacement.Note: Patients with mechanical aortic valve replacement and additional risk factors for thromboembolic events (atrial fibrillation, previous thromboembolism, LV dysfunction, hypercoagulable conditions) or an older generation mechanical AVR (i.e., ball in-Cage) or any mechanical MVR should have a INR therapeutic range of 2.5 to 3.5 (target INR of 3).Sabrina DEVINE, et al. Chest 2012, 141:7S-47SRenetta BOWER, et al. [facility] 2017, 70: 252-289 PT Sec 15.8 sec High 9.7-13.0 [facility] Basic Metabolic Panlon 10-05 Anion gap [Moles/Vol] 8 mmol/L Low 9-18 [facility] Calcium [Mass/Vol] 8.7 mg/dL Normal 8.5-10.2 [facility] Chloride [Moles/Vol] 108 mmol/L High 97-105 [facility] CO2 [Moles/Vol] 24 mmol/L Normal 22-33 [facility] Creatinine [Mass/Vol] 1.42 mg/dL High 0.58-0.96 [facility] eGFR- Amer. 45 Normal [facility] eGFR-All Other Races 37 . Normal [facility] Comment on above: Result Comment: eGFR (Estimated GFR) Units of measure: mL/min/1.73 meters squaredeGFR is derived from the reexpressed MDRD Study equation using the following parameters: serum creatinine, age, gender and race. The creatinine assay has been calibrated to be traceable to IDMS.An eGFR <60 mL/min/1.73m2 for >3 months is consistent with chronic kidney disease. Refer to KDOQI guidelines for clinical interpretation.In patients with unstable renal function, e.g. those with acute kidney injury, the eGFR may not accurately reflect actual GFR.Note: On 11/08/2021, the eGFR calculation will be updated to the NKF-ASN Task Force recommended 2020 CKD-EPI creatinine equation which does not include a race variable. For more information or to access a 2020 CKD-EPI calculator, visit the National Kidney Foundation website at [email or web address]/professionals/kdoqi/gfr_calculator. Glucose [Mass/Vol] 91 mg/dL Normal 74-99 [facility] Potassium [Moles/Vol] 4.4 mmol/L Normal 3.7-5.1 [facility] Sodium [Moles/Vol] 140 mmol/L Normal 136-144 [facility] Urea nitrogen [Mass/Vol] 18 mg/dL Normal 7-21 [facility] CBCon 10-05-2021 Absolute nRBC <0.01 Normal <0.01 [facility] Erythrocyte distribution width (RBC) [Ratio] 17.5 % High 11.5-15.0 [facility] Hematocrit (Bld) [Volume fraction] 25.6 % Low 36.0-46.0 [facility] Hemoglobin (Bld) [Mass/Vol] 8.0 g/dL Low 11.5-15.5 [facility] MCH 31.7 pG Normal 26.0-34.0 [facility] MCHC (RBC) [Mass/Vol] 31.3 g/dL Normal 30.5-36.0 [facility] MCV (RBC) [Entitic vol] 101.6 fL High 80.0-100.0 [facility] Platelet mean volume (Bld) [Entitic vol] 9.9 fL Normal 9.0-12.7 [facility] Platelets (Bld) [#/Vol] 161 10*3/uL Normal 150-400 [facility] RBC (Bld) [#/Vol] 2.52 10*6/uL Low 3.90-5.20 [facility] WBC (Bld) [#/Vol] 5.66 10*3/uL Normal 3.70-11.00 [facility] NURSING PROGon 10-05-2021 NURSING PROG Normal [facility] NURSING PROG Normal [facility] PTT,Anticoag Therapyon 10-05 aPTT Coag (Bld) [Time] 49.5 s High 23.0-32.4 [facility] Comment on above: Result Comment: Unfr actionated Heparin Therapeutic Ranges:Standard Heparin Nomogram: 53 to 78 seconds (anti-Xa level of 0.3 to 0.7 U/ml)Low Dose/ACS Nomogram: 49 to 67 seconds (anti-Xa level of 0.2 to 0.5 U/ml)Stroke Treatment Nomogram: 49 to 67 seconds (anti-Xa level of 0.2 to 0.5 U/ml)Note: The APTT therapeutic range has been determined for the current lot of laboratory APTT reagent in use throughout the [facility]. aPTT Coag (Bld) [Time] 56.1 s High 23.0-32.4 [facility] Comment on above: Result Comment: Unfr actionated Heparin Therapeutic Ranges:Standard Heparin Nomogram: 53 to 78 seconds (anti-Xa level of 0.3 to 0.7 U/ml)Low Dose/ACS Nomogram: 49 to 67 seconds (anti-Xa level of 0.2 to 0.5 U/ml)Stroke Treatment Nomogram: 49 to 67 seconds (anti-Xa level of 0.2 to 0.5 U/ml)Note: The APTT therapeutic range has been determined for the current lot of laboratory APTT reagent in use throughout the [facility]. Protimeon 10-05-2021 PT INR 1.9 High 0.9-1.3 [facility] Comment on above: Result Comment: Miryam min K Antagonist (VKA) Therapeutic Range: INR 2 to 3 (Target INR of 2.5)Note: For patients treated with VKA drugs, such as warfarin, the [place] [employer] 2012 Guideline recommends a therapeutic INR range of 2 to 3 (target INR of 2.5). This recommendation includes high-risk patients with antiphospholipid syndrome with previous arterial or venous thromboembolism, current-generation mechanical or bioprosthetic aortic heart valve replacement.Note: Patients with mechanical aortic valve replacement and additional risk factors for thromboembolic events (atrial fibrillation, previous thromboembolism, LV dysfunction, hypercoagulable conditions) or an older generation mechanical AVR (i.e., ball in-Cage) or any mechanical MVR should have a INR therapeutic range of 2.5 to 3.5 (target INR of 3).Sabrina GH, et al. Chest 2012, 141:7S-47SNishmirian RA, et al. JAC 2017, 70: 252-289 PT Sec 19.4 sec High 9.7-13.0 [facility] Basic Metabolic Panlon 10-04 Anion gap [Moles/Vol] 8 mmol/L Low 9-18 [facility] Calcium [Mass/Vol] 8.6 mg/dL Normal 8.5-10.2 [facility] Chloride [Moles/Vol] 108 mmol/L High 97-105 [facility] CO2 [Moles/Vol] 27 mmol/L Normal 22-33 [facility] Creatinine [Mass/Vol] 1.45 mg/dL High 0.58-0.96 [facility] eGFR- Amer. 44 Normal [facility] eGFR-All Other Races 36 . Normal [facility] Comment on above: Result Comment: eGFR (Estimated GFR) Units of measure: mL/min/1.73 meters squaredeGFR is derived from the reexpressed MDRD Study equation using the following parameters: serum creatinine, age, gender and race. The creatinine assay has been calibrated to be traceable to IDMS.An eGFR <60 mL/min/1.73m2 for >3 months is consistent with chronic kidney disease. Refer to KDOQI guidelines for clinical interpretation.In patients with unstable renal function, e.g. those with acute kidney injury, the eGFR may not accurately reflect actual GFR.Note: On 11/08/2021, the eGFR calculation will be updated to the NKF-ASN Task Force recommended 2020 CKD-EPI creatinine equation which does not include a race variable. For more information or to access a 2020 CKD-EPI calculator, visit the National Kidney Foundation website at [email or web address]/professionals/kdoqi/gfr_calculator. Glucose [Mass/Vol] 98 mg/dL Normal 74-99 [facility] Potassium [Moles/Vol] 4.6 mmol/L Normal 3.7-5.1 [facility] Sodium [Moles/Vol] 143 mmol/L Normal 136-144 [facility] Urea nitrogen [Mass/Vol] 17 mg/dL Normal 7-21 [facility] CBCon 10-04-2021 Absolute nRBC <0.01 Normal <0.01 [facility] Erythrocyte distribution width (RBC) [Ratio] 17.3 % High 11.5-15.0 [facility] Hematocrit (Bld) [Volume fraction] 26.2 % Low 36.0-46.0 [facility] Hemoglobin (Bld) [Mass/Vol] 8.1 g/dL Low 11.5-15.5 [facility] MCH 30.5 pG Normal 26.0-34.0 [facility] MCHC (RBC) [Mass/Vol] 30.9 g/dL Normal 30.5-36.0 [facility] MCV (RBC) [Entitic vol] 98.5 fL Normal 80.0-100.0 [facility] Platelet mean volume (Bld) [Entitic vol] 9.9 fL Normal 9.0-12.7 [facility] Platelets (Bld) [#/Vol] 162 10*3/uL Normal 150-400 [facility] RBC (Bld) [#/Vol] 2.66 10*6/uL Low 3.90-5.20 [facility] WBC (Bld) [#/Vol] 4.60 10*3/uL Normal 3.70-11.00 [facility] Absolute nRBC <0.01 Normal <0.01 [facility] Erythrocyte distribution width (RBC) [Ratio] 17.0 % High 11.5-15.0 [facility] Hematocrit (Bld) [Volume fraction] 29.2 % Low 36.0-46.0 [facility] Hemoglobin (Bld) [Mass/Vol] 8.9 g/dL Low 11.5-15.5 [facility] MCH 30.5 pG Normal 26.0-34.0 [facility] MCHC (RBC) [Mass/Vol] 30.5 g/dL Normal 30.5-36.0 [facility] MCV (RBC) [Entitic vol] 100.0 fL Normal 80.0-100.0 [facility] Platelet mean volume (Bld) [Entitic vol] 10.1 fL Normal 9.0-12.7 [facility] Platelets (Bld) [#/Vol] 196 10*3/uL Normal 150-400 [facility] RBC (Bld) [#/Vol] 2.92 10*6/uL Low 3.90-5.20 [facility] WBC (Bld) [#/Vol] 5.91 10*3/uL Normal 3.70-11.00 [facility] Magnesiumon 10-04-2021 Magnesium [Mass/Vol] 2.3 mg/dL Normal 1.7-2.3 [facility] NURSING PROGon 10-04-2021 NURSING PROG Normal [facility] NURSING PROG Normal [facility] NURSING PROG Normal [facility] PTT,Anticoag Therapyon 10-04 aPTT Coag (Bld) [Time] 61.8 s High 23.0-32.4 [facility] Comment on above: Result Comment: Unfr actionated Heparin Therapeutic Ranges:Standard Heparin Nomogram: 53 to 78 seconds (anti-Xa level of 0.3 to 0.7 U/ml)Low Dose/ACS Nomogram: 49 to 67 seconds (anti-Xa level of 0.2 to 0.5 U/ml)Stroke Treatment Nomogram: 49 to 67 seconds (anti-Xa level of 0.2 to 0.5 U/ml)Note: The APTT therapeutic range has been determined for the current lot of laboratory APTT reagent in use throughout the [facility]. Potassiumon 10-04-2021 Potassium [Moles/Vol] 4.3 mmol/L Normal 3.7-5.1 [facility] Protimeon 10-04-2021 PT INR 1.8 High 0.9-1.3 [facility] Comment on above: Result Comment: Miryam min K Antagonist (VKA) Therapeutic Range: INR 2 to 3 (Target INR of 2.5)Note: For patients treated with VKA drugs, such as warfarin, the [place] [employer] 2012 Guideline recommends a therapeutic INR range of 2 to 3 (target INR of 2.5). This recommendation includes high-risk patients with antiphospholipid syndrome with previous arterial or venous thromboembolism, current-generation mechanical or bioprosthetic aortic heart valve replacement.Note: Patients with mechanical aortic valve replacement and additional risk factors for thromboembolic events (atrial fibrillation, previous thromboembolism, LV dysfunction, hypercoagulable conditions) or an older generation mechanical AVR (i.e., ball in-Cage) or any mechanical MVR should have a INR therapeutic range of 2.5 to 3.5 (target INR of 3).Sabrina GH, et al. Chest 2012, 141:7S-47SNishimvioleta RA, et al. JACC 2017, 70: 252-289 PT Sec 18.3 sec High 9.7-13.0 [facility] ANES POSTPROC EVALon 022 ANES POSTPROC EVAL Normal [facility] ANES PRE-OPon 10-03-2021 ANES PRE-OP Normal [facility] BRIEF OP NOTon 10-03-2021 BRIEF OP NOT Normal [facility] Basic Metabolic Panlon 10-03 Anion gap [Moles/Vol] 9 mmol/L Normal 9-18 [facility] Calcium [Mass/Vol] 8.6 mg/dL Normal 8.5-10.2 [facility] Chloride [Moles/Vol] 104 mmol/L Normal 97-105 [facility] CO2 [Moles/Vol] 26 mmol/L Normal 22-33 [facility] Creatinine [Mass/Vol] 1.50 mg/dL High 0.58-0.96 [facility] eGFR- Amer. 42 Normal [facility] eGFR-All Other Races 35 . Normal [facility] Comment on above: Result Comment: eGFR (Estimated GFR) Units of measure: mL/min/1.73 meters squaredeGFR is derived from the reexpressed MDRD Study equation using the following parameters: serum creatinine, age, gender and race. The creatinine assay has been calibrated to be traceable to IDMS.An eGFR <60 mL/min/1.73m2 for >3 months is consistent with chronic kidney disease. Refer to KDOQI guidelines for clinical interpretation.In patients with unstable renal function, e.g. those with acute kidney injury, the eGFR may not accurately reflect actual GFR.Note: On 11/08/2021, the eGFR calculation will be updated to the NKF-ASN Task Force recommended 2020 CKD-EPI creatinine equation which does not include a race variable. For more information or to access a 2020 CKD-EPI calculator, visit the National Kidney Foundation website at [email or web address]/kdoqi/gfr_[email or web address]. Glucose [Mass/Vol] 79 mg/dL Normal 74-99 [facility] Potassium [Moles/Vol] 3.2 mmol/L Low 3.7-5.1 [facility] Sodium [Moles/Vol] 139 mmol/L Normal 136-144 [facility] Urea nitrogen [Mass/Vol] 23 mg/dL High 7-21 [facility] CASE MANAGEMon 10-03-2021 CASE MANAGEM Normal [facility] CBCon 10-03-2021 Absolute nRBC <0.01 Normal <0.01 [facility] Erythrocyte distribution width (RBC) [Ratio] 17.7 % High 11.5-15.0 [facility] Hematocrit (Bld) [Volume fraction] 25.5 % Low 36.0-46.0 [facility] Hemoglobin (Bld) [Mass/Vol] 8.4 g/dL Low 11.5-15.5 [facility] MCH 32.1 pG Normal 26.0-34.0 [facility] MCHC (RBC) [Mass/Vol] 32.9 g/dL Normal 30.5-36.0 [facility] MCV (RBC) [Entitic vol] 97.3 fL Normal 80.0-100.0 [facility] Platelet mean volume (Bld) [Entitic vol] 9.7 fL Normal 9.0-12.7 [facility] Platelets (Bld) [#/Vol] 149 10*3/uL Low 150-400 [facility] RBC (Bld) [#/Vol] 2.62 10*6/uL Low 3.90-5.20 [facility] WBC (Bld) [#/Vol] 4.63 10*3/uL Normal 3.70-11.00 [facility] Absolute nRBC <0.01 Normal <0.01 [facility] Erythrocyte distribution width (RBC) [Ratio] 16.9 % High 11.5-15.0 [facility] Hematocrit (Bld) [Volume fraction] 24.9 % Low 36.0-46.0 [facility] Hemoglobin (Bld) [Mass/Vol] 8.1 g/dL Low 11.5-15.5 [facility] MCH 31.0 pG Normal 26.0-34.0 [facility] MCHC (RBC) [Mass/Vol] 32.5 g/dL Normal 30.5-36.0 [facility] MCV (RBC) [Entitic vol] 95.4 fL Normal 80.0-100.0 [facility] Platelet mean volume (Bld) [Entitic vol] 9.6 fL Normal 9.0-12.7 [facility] Platelets (Bld) [#/Vol] 149 10*3/uL Low 150-400 [facility] RBC (Bld) [#/Vol] 2.61 10*6/uL Low 3.90-5.20 [facility] WBC (Bld) [#/Vol] 4.73 10*3/uL Normal 3.70-11.00 [facility] HISTORY PHYSICALon 2 HISTORY PHYSICAL Normal [facility] NURSING PROGon 10-03-2021 NURSING PROG Normal [facility] NUTRITIONon 10-03-2021 NUTRITION Normal [facility] PTT,Anticoag Therapyon 10-03 aPTT Coag (Bld) [Time] 53.1 s High 23.0-32.4 [facility] Comment on above: Result Comment: Unfr actionated Heparin Therapeutic Ranges:Standard Heparin Nomogram: 53 to 78 seconds (anti-Xa level of 0.3 to 0.7 U/ml)Low Dose/ACS Nomogram: 49 to 67 seconds (anti-Xa level of 0.2 to 0.5 U/ml)Stroke Treatment Nomogram: 49 to 67 seconds (anti-Xa level of 0.2 to 0.5 U/ml)Note: The APTT therapeutic range has been determined for the current lot of laboratory APTT reagent in use throughout the [facility]. Protimeon 10-03-2021 PT INR 2.0 High 0.9-1.3 [facility] Comment on above: Result Comment: Miryam min K Antagonist (VKA) Therapeutic Range: INR 2 to 3 (Target INR of 2.5)Note: For patients treated with VKA drugs, such as warfarin, the [place] [employer] 2012 Guideline recommends a therapeutic INR range of 2 to 3 (target INR of 2.5). This recommendation includes high-risk patients with antiphospholipid syndrome with previous arterial or venous thromboembolism, current-generation mechanical or bioprosthetic aortic heart valve replacement.Note: Patients with mechanical aortic valve replacement and additional risk factors for thromboembolic events (atrial fibrillation, previous thromboembolism, LV dysfunction, hypercoagulable conditions) or an older generation mechanical AVR (i.e., ball in-Cage) or any mechanical MVR should have a INR therapeutic range of 2.5 to 3.5 (target INR of 3).Sabrina GH, et al. Chest 2012, 141:7S-47SNishimura RA, et al. [facility] 2017, 70: 252-289 PT Sec 20.7 sec High 9.7-13.0 [facility] PT INR 2.3 High 0.9-1.3 [facility] Comment on above: Result Comment: Miryam min K Antagonist (VKA) Therapeutic Range: INR 2 to 3 (Target INR of 2.5)Note: For patients treated with VKA drugs, such as warfarin, the [place] [employer] 2012 Guideline recommends a therapeutic INR range of 2 to 3 (target INR of 2.5). This recommendation includes high-risk patients with antiphospholipid syndrome with previous arterial or venous thromboembolism, current-generation mechanical or bioprosthetic aortic heart valve replacement.Note: Patients with mechanical aortic valve replacement and additional risk factors for thromboembolic events (atrial fibrillation, previous thromboembolism, LV dysfunction, hypercoagulable conditions) or an older generation mechanical AVR (i.e., ball in-Cage) or any mechanical MVR should have a INR therapeutic range of 2.5 to 3.5 (target INR of 3).Sabrina GH, et al. Chest 2012, 141:7S-47SNishimura RA, et al. [facility] 2017, 70: 252-289 PT Sec 23.9 sec High 9.7-13.0 [facility] SURGICAL PATHOLOGYon 022 SURGICAL PATHOLOGY Normal [facility] CBCon 2021 Absolute nRBC <0.01 Normal <0.01 [facility] Erythrocyte distribution width (RBC) [Ratio] 17.1 % High 11.5-15.0 [facility] Hematocrit (Bld) [Volume fraction] 29.8 % Low 36.0-46.0 [facility] Hemoglobin (Bld) [Mass/Vol] 8.6 g/dL Low 11.5-15.5 [facility] MCH 30.5 pG Normal 26.0-34.0 [facility] MCHC (RBC) [Mass/Vol] 28.9 g/dL Low 30.5-36.0 [facility] MCV (RBC) [Entitic vol] 105.7 fL High 80.0-100.0 [facility] Platelet mean volume (Bld) [Entitic vol] 9.9 fL Normal 9.0-12.7 [facility] Platelets (Bld) [#/Vol] 163 10*3/uL Normal 150-400 [facility] RBC (Bld) [#/Vol] 2.82 10*6/uL Low 3.90-5.20 [facility] WBC (Bld) [#/Vol] 5.23 10*3/uL Normal 3.70-11.00 [facility] Absolute nRBC <0.01 Normal <0.01 [facility] Erythrocyte distribution width (RBC) [Ratio] 17.2 % High 11.5-15.0 [facility] Hematocrit (Bld) [Volume fraction] 26.4 % Low 36.0-46.0 [facility] Hemoglobin (Bld) [Mass/Vol] 8.2 g/dL Low 11.5-15.5 [facility] MCH 30.8 pG Normal 26.0-34.0 [facility] MCHC (RBC) [Mass/Vol] 31.1 g/dL Normal 30.5-36.0 [facility] MCV (RBC) [Entitic vol] 99.2 fL Normal 80.0-100.0 [facility] Platelet mean volume (Bld) [Entitic vol] 10.0 fL Normal 9.0-12.7 [facility] Platelets (Bld) [#/Vol] 146 10*3/uL Low 150-400 [facility] RBC (Bld) [#/Vol] 2.66 10*6/uL Low 3.90-5.20 [facility] WBC (Bld) [#/Vol] 5.21 10*3/uL Normal 3.70-11.00 [facility] Absolute nRBC 0.02 k/uL High <0.01 [facility] Erythrocyte distribution width (RBC) [Ratio] 17.2 % High 11.5-15.0 [facility] Hematocrit (Bld) [Volume fraction] 26.5 % Low 36.0-46.0 [facility] Hemoglobin (Bld) [Mass/Vol] 8.4 g/dL Low 11.5-15.5 [facility] MCH 30.9 pG Normal 26.0-34.0 [facility] MCHC (RBC) [Mass/Vol] 31.7 g/dL Normal 30.5-36.0 [facility] MCV (RBC) [Entitic vol] 97.4 fL Normal 80.0-100.0 [facility] Platelet mean volume (Bld) [Entitic vol] 10.0 fL Normal 9.0-12.7 [facility] Platelets (Bld) [#/Vol] 168 10*3/uL Normal 150-400 [facility] RBC (Bld) [#/Vol] 2.72 10*6/uL Low 3.90-5.20 [facility] WBC (Bld) [#/Vol] 6.05 10*3/uL Normal 3.70-11.00 [facility] CONSULTon 2021 CONSULT Normal [facility] CONSULT Normal [facility] CONSULT PROGon 2021 CONSULT PROG Normal [facility] Comp Metabolic Panelon 10-02 Albumin [Mass/Vol] 2.9 g/dL Low 3.9-4.9 [facility] ALP [Catalytic activity/Vol] 41 U/L Normal 34-123 [facility] ALT [Catalytic activity/Vol] 13 U/L Normal 7-38 [facility] Anion gap [Moles/Vol] 10 mmol/L Normal 9-18 [facility] AST [Catalytic activity/Vol] 16 U/L Normal 13-35 [facility] Bilirubin [Mass/Vol] 0.5 mg/dL Normal 0.2-1.3 [facility] Calcium [Mass/Vol] 8.5 mg/dL Normal 8.5-10.2 [facility] Chloride [Moles/Vol] 105 mmol/L Normal 97-105 [facility] CO2 [Moles/Vol] 25 mmol/L Normal 22-33 [facility] Creatinine [Mass/Vol] 1.98 mg/dL High 0.58-0.96 [facility] eGFR- Amer. 30 Normal [facility] eGFR-All Other Races 25 . Normal [facility] Comment on above: Result Comment: eGFR (Estimated GFR) Units of measure: mL/min/1.73 meters squaredeGFR is derived from the reexpressed MDRD Study equation using the following parameters: serum creatinine, age, gender and race. The creatinine assay has been calibrated to be traceable to IDMS.An eGFR <60 mL/min/1.73m2 for >3 months is consistent with chronic kidney disease. Refer to KDOQI guidelines for clinical interpretation.In patients with unstable renal function, e.g. those with acute kidney injury, the eGFR may not accurately reflect actual GFR.Note: On 11/08/2021, the eGFR calculation will be updated to the NKF-ASN Task Force recommended 2020 CKD-EPI creatinine equation which does not include a race variable. For more information or to access a 2020 CKD-EPI calculator, visit the National Kidney Foundation website at [email or web address]/professionals/kdoqi/gfr_calculator. Glucose [Mass/Vol] 87 mg/dL Normal 74-99 [facility] Potassium [Moles/Vol] 4.0 mmol/L Normal 3.7-5.1 [facility] Protein [Mass/Vol] 4.8 g/dL Low 6.3-8.0 [facility] Sodium [Moles/Vol] 140 mmol/L Normal 136-144 [facility] Urea nitrogen [Mass/Vol] 33 mg/dL High 7-21 [facility] Crit Care Profile-Kaushik HIL an d FH use onlyon 2021 Wilson Test Not Applicable Normal [facility] Attempts 1 Normal [facility] Base Excess 4 mmol/L Normal [facility] Comment on above: Result Comment: -2 T O 2 Body temperature 98.6 [degF] Normal [facility] Calcium [Moles/Vol] 1.17 mmol/L Normal 1.08-1.30 [facility] Chloride [Moles/Vol] 103 mmol/L Normal 98-109 [facility] Device NONE Normal [facility] Drawsite Venous Normal [facility] Glucose [Mass/Vol] 118 mg/dL High 60-105 [facility] HCO3 (Bld) [Moles/Vol] 29 mmol/L High 22-26 [facility] Hemoglobin (Bld) [Mass/Vol] 7.6 g/dL Low 12-18 [facility] Lactate [Moles/Vol] 1.2 mmol/L Normal 0.5-2.2 [facility] O2 Administered .21 Normal [facility] pCO2 44 mm Hg Normal 41-51 [facility] pH (Bld) 7.43 [pH] High 7.32-7.42 [facility] pO2 30 mm Hg Low 35-42 [facility] Potassium [Moles/Vol] 3.1 mmol/L Low 3.5-5.0 [facility] Sodium [Moles/Vol] 138 mmol/L Normal 136-144 [facility] Ferritinon 2021 Ferritin [Mass/Vol] 271.3 ng/mL High 14.7-205.1 [facility] Folate, Serumon 2021 Folate [Mass/Vol] 19.0 ng/mL Normal >4.7 [facility] Iron (FOR EAST ONLY)on 10-02 Iron [Mass/Vol] 45 ug/dL Normal 30-140 [facility] Lactateon 2021 Lactate [Moles/Vol] 3.1 mmol/L High 0.5-2.2 [facility] Magnesiumon 2021 Magnesium [Mass/Vol] 2.1 mg/dL Normal 1.7-2.3 [facility] NURSING PROGon 2021 NURSING PROG Normal [facility] NURSING PROG Normal [facility] NURSING PROG Normal [facility] NURSING PROG Normal [facility] Protimeon 2021 PT INR 2.1 High 0.9-1.3 [facility] Comment on above: Result Comment: Miryam min K Antagonist (VKA) Therapeutic Range: INR 2 to 3 (Target INR of 2.5)Note: For patients treated with VKA drugs, such as warfarin, the [place] [employer] 2012 Guideline recommends a therapeutic INR range of 2 to 3 (target INR of 2.5). This recommendation includes high-risk patients with antiphospholipid syndrome with previous arterial or venous thromboembolism, current-generation mechanical or bioprosthetic aortic heart valve replacement.Note: Patients with mechanical aortic valve replacement and additional risk factors for thromboembolic events (atrial fibrillation, previous thromboembolism, LV dysfunction, hypercoagulable conditions) or an older generation mechanical AVR (i.e., ball in-Cage) or any mechanical MVR should have a INR therapeutic range of 2.5 to 3.5 (target INR of 3).Sabrina GH, et al. Chest 2012, 141:7S-47SNishmirian RA, et al. JAC 2017, 70: 252-289 PT Sec 21.4 sec High 9.7-13.0 [facility] PT INR 6.3 High 0.9-1.3 [facility] Comment on above: Result Comment: Miryam min K Antagonist (VKA) Therapeutic Range: INR 2 to 3 (Target INR of 2.5)Note: For patients treated with VKA drugs, such as warfarin, the [place] [employer] 2012 Guideline recommends a therapeutic INR range of 2 to 3 (target INR of 2.5). This recommendation includes high-risk patients with antiphospholipid syndrome with previous arterial or venous thromboembolism, current-generation mechanical or bioprosthetic aortic heart valve replacement.Note: Patients with mechanical aortic valve replacement and additional risk factors for thromboembolic events (atrial fibrillation, previous thromboembolism, LV dysfunction, hypercoagulable conditions) or an older generation mechanical AVR (i.e., ball in-Cage) or any mechanical MVR should have a INR therapeutic range of 2.5 to 3.5 (target INR of 3).Sabrina GH, et al. Chest 2012, 141:7S-47SNishimvioleta RA, et al. JAC 2017, 70: 252-289Called to and read back by: Michele Isaacs RN Aragon 3B 10/02/21 [address] PT Sec 61.8 sec High 9.7-13.0 [facility] Sepsis Lactateon 2021 Sepsis Lactate 4.5 mmol/L High 0.5-2.0 [facility] Comment on above: Result Comment: Call ed to and read back by:Megan CARVAJAL Aragon 10/02/21 1540 Maryann TIBCon 2021 TIBC 304 ug/dL Normal 210-415 [facility] Transferrin Saturatn 15 % Normal 11-46 [facility] Vitamin B12on 2021 Cobalamin (Vitamin B12) [Mass/Vol] 683 pg/mL Normal 232-1245 [facility] ALLIED HEALTHon 10-01-2021 ALLIED HEALTH Normal [facility] CBCon 10-01-2021 Absolute nRBC 0.07 k/uL High <0.01 [facility] Erythrocyte distribution width (RBC) [Ratio] 18.1 % High 11.5-15.0 [facility] Hematocrit (Bld) [Volume fraction] 22.9 % Low 36.0-46.0 [facility] Hemoglobin (Bld) [Mass/Vol] 7.2 g/dL Low 11.5-15.5 [facility] MCH 31.0 pG Normal 26.0-34.0 [facility] MCHC (RBC) [Mass/Vol] 31.4 g/dL Normal 30.5-36.0 [facility] MCV (RBC) [Entitic vol] 98.7 fL Normal 80.0-100.0 [facility] Platelet mean volume (Bld) [Entitic vol] 10.0 fL Normal 9.0-12.7 [facility] Platelets (Bld) [#/Vol] 248 10*3/uL Normal 150-400 [facility] RBC (Bld) [#/Vol] 2.32 10*6/uL Low 3.90-5.20 [facility] WBC (Bld) [#/Vol] 8.71 10*3/uL Normal 3.70-11.00 [facility] CONSULTon 10-01-2021 CONSULT Normal [facility] Comp Metabolic Panelon 10-01 Albumin [Mass/Vol] 3.6 g/dL Low 3.9-4.9 [facility] ALP [Catalytic activity/Vol] 41 U/L Normal 34-123 [facility] ALT [Catalytic activity/Vol] 18 U/L Normal 7-38 [facility] Anion gap [Moles/Vol] 15 mmol/L Normal 9-18 [facility] AST [Catalytic activity/Vol] 32 U/L Normal 13-35 [facility] Bilirubin [Mass/Vol] 0.5 mg/dL Normal 0.2-1.3 [facility] Calcium [Mass/Vol] 9.0 mg/dL Normal 8.5-10.2 [facility] Chloride [Moles/Vol] 100 mmol/L Normal 97-105 [facility] CO2 [Moles/Vol] 24 mmol/L Normal 22-33 [facility] Creatinine [Mass/Vol] 1.86 mg/dL High 0.58-0.96 [facility] eGFR- Amer. 33 Normal [facility] eGFR-All Other Races 27 . Normal [facility] Comment on above: Result Comment: eGFR (Estimated GFR) Units of measure: mL/min/1.73 meters squaredeGFR is derived from the reexpressed MDRD Study equation using the following parameters: serum creatinine, age, gender and race. The creatinine assay has been calibrated to be traceable to IDMS.An eGFR <60 mL/min/1.73m2 for >3 months is consistent with chronic kidney disease. Refer to KDOQI guidelines for clinical interpretation.In patients with unstable renal function, e.g. those with acute kidney injury, the eGFR may not accurately reflect actual GFR.Note: On 11/08/2021, the eGFR calculation will be updated to the NKF-ASN Task Force recommended 2020 CKD-EPI creatinine equation which does not include a race variable. For more information or to access a 2020 CKD-EPI calculator, visit the National Kidney Foundation website at [email or web address]/professionals/kdoqi/gfr_calculator. Glucose [Mass/Vol] 100 mg/dL High 74-99 [facility] Potassium [Moles/Vol] 3.7 mmol/L Normal 3.7-5.1 [facility] Protein [Mass/Vol] 6.2 g/dL Low 6.3-8.0 [facility] Sodium [Moles/Vol] 139 mmol/L Normal 136-144 [facility] Urea nitrogen [Mass/Vol] 36 mg/dL High 7-21 [facility] Confirm Blood Typeon 022 ABO/RH(D) Positive [facility] ED NOTEon 10-01-2021 ED NOTE HNO ID: [id number] Author: Margarette Jarvis RN Service: ? Author Type: Registered Nurse Type: ED Notes Filed: 10/01/2021 3:54 PM Note Text: Dr Meza made aware of pt BP. Asymptomatic. Pt given 500cc bolus as well as placed in trendelenburg. Normal [facility] ED NOTE Normal [facility] ED NOTE HNO ID: [id number] Author: Jerry Cardona RN Service: ? Author Type: Registered Nurse Type: ED Notes Filed: 10/01/2021 12:39 PM Note Text: Bed: ED-13 Expected date: Expected time: Means of arrival: Comments: EMS [facility] ED NOTE HNO ID: [id number] Author: Eliza Baez RN Service: ? Author Type: Registered Nurse Type: ED Notes Filed: 10/01/2021 12:12 PM Note Text: Coming form [facility] office by EMS daughter available for reference. Normal [facility] ED PROV NOTEon 10-01-2021 ED PROV NOTE Normal [facility] HISTORY PHYSICALon HISTORY PHYSICAL Normal [facility] Lactateon 10-01-2021 Lactate [Moles/Vol] 3.3 mmol/L High 0.5-2.2 [facility] MEDICAL EMERon 10-01-2021 MEDICAL [facility] NT Pro BNPon 10-01-2021 PRO B Natr Peptide 4031 pg/mL High <125 [facility] Comment on above: Result Comment: For the ruling out or ruling in acute CHF:Rule out: <300 pg/mL all agesRule in: >450 pg/mL <50 years >900 pg/mL 50 to 75 years >1800 pg/mL >75 yearsGenevieve et al. The N Terminal Pro BNP Investigation of Dyspnea in the Emergency Department (PRIDE) Study. [place] Journal of Cardiology 2005:95:948 to 954.Lebron et al. The NT proBNP testing for diagnosis and short term prognosis in acute destabilized heart failure: and international pooled analysis of 1256 patients. Heart Journal 2006:27(3):330 to 337. NURSING PROGon 10-01-2021 NURSING PROG [facility] Protimeon 10-01-2021 PT INR 4.8 High 0.9-1.3 [facility] Comment on above: Result Comment: Miryam min K Antagonist (VKA) Therapeutic Range: INR 2 to 3 (Target INR of 2.5)Note: For patients treated with VKA drugs, such as warfarin, the [place] [employer] 2012 Guideline recommends a therapeutic INR range of 2 to 3 (target INR of 2.5). This recommendation includes high-risk patients with antiphospholipid syndrome with previous arterial or venous thromboembolism, current-generation mechanical or bioprosthetic aortic heart valve replacement.Note: Patients with mechanical aortic valve replacement and additional risk factors for thromboembolic events (atrial fibrillation, previous thromboembolism, LV dysfunction, hypercoagulable conditions) or an older generation mechanical AVR (i.e., ball in-Cage) or any mechanical MVR should have a INR therapeutic range of 2.5 to 3.5 (target INR of 3).Sabrina DEVINE, et al. Chest 2012, 141:7S-47SRenetta BOWER, et al. JAC 2017, 70: 252-289 PT Sec 47.6 sec High 9.7-13.0 [facility] Troponin Ton 10-01-2021 Troponin T.cardiac [Mass/Vol] 0.036 ug/L High 0.000-0.029 [facility] Comment on above: Result Comment: No c all per procedure.10/01/21 14:45 XR CHEST 2V FRONTAL/LATon XR CHEST 2V FRONTAL/LAT [facility] CASE MANAGEMon 09-17-2021 CASE MANAGEM [facility] CASE MANAGEM [facility] CNDSon 09-17-2021 CNDS [facility] NURSING PROGon 09-17-2021 NURSING PROG [facility] ALLIED HEALTHon 09-16-2021 ALLIED HEALTH [facility] CASE MANAGEMon 09-16-2021 CASE MANAGEM [facility]16 Albumin [Mass/Vol] 3.1 g/dL Low 3.9-4.9 [facility] ALP [Catalytic activity/Vol] 65 U/L Normal 34-123 [facility] ALT [Catalytic activity/Vol] 31 U/L Normal 7-38 [facility] Anion gap [Moles/Vol] 11 mmol/L Normal 9-18 [facility] AST [Catalytic activity/Vol] 33 U/L Normal 13-35 [facility] Bilirubin [Mass/Vol] 1.1 mg/dL Normal 0.2-1.3 [facility] Calcium [Mass/Vol] 9.4 mg/dL Normal 8.5-10.2 [facility] Chloride [Moles/Vol] 103 mmol/L Normal 97-105 [facility] CO2 [Moles/Vol] 25 mmol/L Normal 22-33 [facility] Creatinine [Mass/Vol] 0.98 mg/dL High 0.58-0.96 [facility] eGFR- Amer. >60 Normal [facility] eGFR-All Other Races 57 . Normal [facility] Comment on above: Result Comment: eGFR (Estimated GFR) Units of measure: mL/min/1.73 meters squaredeGFR is derived from the reexpressed MDRD Study equation using the following parameters: serum creatinine, age, gender and race. The creatinine assay has been calibrated to be traceable to IDMS.An eGFR <60 mL/min/1.73m2 for >3 months is consistent with chronic kidney disease. Refer to KDOQI guidelines for clinical interpretation.In patients with unstable renal function, e.g. those with acute kidney injury, the eGFR may not accurately reflect actual GFR.Note: On 11/08/2021, the eGFR calculation will be updated to the NKF-ASN Task Force recommended 2020 CKD-EPI creatinine equation which does not include a race variable. For more information or to access a 2020 CKD-EPI calculator, visit the National Kidney Foundation website at [email or web address]/professionals/kdoqi/gfr_calculator. Glucose [Mass/Vol] 86 mg/dL Normal 74-99 [facility] Potassium [Moles/Vol] 4.2 mmol/L Normal 3.7-5.1 [facility] Protein [Mass/Vol] 5.9 g/dL Low 6.3-8.0 [facility] Sodium [Moles/Vol] 139 mmol/L Normal 136-144 [facility] Urea nitrogen [Mass/Vol] 37 mg/dL High 7-21 [facility] NURSING PROGon 09-16-2021 NURSING PROG Normal [facility] NURSING PROG [facility] NURSING PROG Normal [facility] NUTRITIONon 09-16-2021 NUTRITION [facility] Protimeon 09-16-2021 PT INR 2.1 High 0.9-1.3 [facility] Comment on above: Result Comment: Miryam min K Antagonist (VKA) Therapeutic Range: INR 2 to 3 (Target INR of 2.5)Note: For patients treated with VKA drugs, such as warfarin, the [place] [employer] 2012 Guideline recommends a therapeutic INR range of 2 to 3 (target INR of 2.5). This recommendation includes high-risk patients with antiphospholipid syndrome with previous arterial or venous thromboembolism, current-generation mechanical or bioprosthetic aortic heart valve replacement.Note: Patients with mechanical aortic valve replacement and additional risk factors for thromboembolic events (atrial fibrillation, previous thromboembolism, LV dysfunction, hypercoagulable conditions) or an older generation mechanical AVR (i.e., ball in-Cage) or any mechanical MVR should have a INR therapeutic range of 2.5 to 3.5 (target INR of 3).Sabrina DEVINE, et al. Chest 2012, 141:7S-47SNishimura RA, et al. [facility] 2017, 70: 252-289 PT Sec 21.5 sec High 9.7-13.0 [facility] ALLIED HEALTHon 09-15-2021 ALLIED HEALTH Normal [facility] CASE MANAGEMon 09-15-2021 CASE MANAGEM Normal [facility] CASE MGT INIT ASSESon 2021 CASE MGT INIT ASSES Normal [facility] CBC and Differentialon 09-15 Abs Baso <0.03 Normal <0.11 [facility] Abs Eosin <0.03 Normal <0.46 [facility] Abs [place] 0.41 k/uL Normal <0.87 [facility] Abs Neut 7.62 k/uL High 1.45-7.50 [facility] Absolute nRBC <0.01 Normal <0.01 [facility] Basophils/100 WBC (Bld) 0.2 % Normal [facility] DTYPE Auto Diff Normal [facility] Eosinophils/100 WBC (Bld) 0.2 % [facility] Erythrocyte distribution width (RBC) [Ratio] 14.2 % Normal 11.5-15.0 [facility] Hematocrit (Bld) [Volume fraction] 38.6 % Normal 36.0-46.0 [facility] Hemoglobin (Bld) [Mass/Vol] 12.9 g/dL Normal 11.5-15.5 [facility] Lymphocytes (Bld) [#/Vol] 0.70 10*3/uL Low 1.00-4.00 [facility] Lymphocytes/100 WBC (Bld) 8.0 % Normal [facility] MCH 31.3 pG Normal 26.0-34.0 [facility] MCHC (RBC) [Mass/Vol] 33.4 g/dL Normal 30.5-36.0 [facility] MCV (RBC) [Entitic vol] 93.7 fL Normal 80.0-100.0 [facility] Monocytes/100 WBC (Bld) 4.7 % Normal [facility] Neutrophils/100 WBC (Bld) 86.9 % Normal [facility] NRBCs 0.0 /100 WBC Normal 0 [facility] Platelet mean volume (Bld) [Entitic vol] 9.1 fL Normal 9.0-12.7 [facility] Platelets (Bld) [#/Vol] 284 10*3/uL Normal 150-400 [facility] RBC (Bld) [#/Vol] 4.12 10*6/uL Normal 3.90-5.20 [facility] WBC (Bld) [#/Vol] 8.77 10*3/uL Normal 3.70-11.00 [facility] CONSULT PROGon 09-15-2021 CONSULT PROG Normal [facility] CONSULT PROG Normal [facility] Comp Metabolic Panelon 09-15 Albumin [Mass/Vol] 2.8 g/dL Low 3.9-4.9 [facility] ALP [Catalytic activity/Vol] 65 U/L Normal 34-123 [facility] ALT [Catalytic activity/Vol] 25 U/L Normal 7-38 [facility] Anion gap [Moles/Vol] 10 mmol/L Normal 9-18 [facility] AST [Catalytic activity/Vol] 27 U/L Normal 13-35 [facility] Bilirubin [Mass/Vol] 1.0 mg/dL Normal 0.2-1.3 [facility] Calcium [Mass/Vol] 9.0 mg/dL Normal 8.5-10.2 [facility] Chloride [Moles/Vol] 108 mmol/L High 97-105 [facility] CO2 [Moles/Vol] 22 mmol/L Normal 22-33 [facility] Creatinine [Mass/Vol] 0.92 mg/dL Normal 0.58-0.96 [facility] eGFR- Amer. >60 Normal [facility] eGFR-All Other Races >60 Normal [facility] Comment on above: Result Comment: eGFR (Estimated GFR) Units of measure: mL/min/1.73 meters squaredeGFR is derived from the reexpressed MDRD Study equation using the following parameters: serum creatinine, age, gender and race. The creatinine assay has been calibrated to be traceable to IDMS.An eGFR <60 mL/min/1.73m2 for >3 months is consistent with chronic kidney disease. Refer to KDOQI guidelines for clinical interpretation.In patients with unstable renal function, e.g. those with acute kidney injury, the eGFR may not accurately reflect actual GFR.Note: On 11/08/2021, the eGFR calculation will be updated to the NKF-ASN Task Force recommended 2020 CKD-EPI creatinine equation which does not include a race variable. For more information or to access a 2020 CKD-EPI calculator, visit the National Kidney Foundation website at kidney.[email or web address]/professionals/kdoqi/gfr_calculator. Glucose [Mass/Vol] 131 mg/dL High 74-99 [facility] Potassium [Moles/Vol] 4.6 mmol/L Normal 3.7-5.1 [facility] Protein [Mass/Vol] 5.6 g/dL Low 6.3-8.0 [facility] Sodium [Moles/Vol] 140 mmol/L Normal 136-144 [facility] Urea nitrogen [Mass/Vol] 30 mg/dL High 7-21 [facility] NURSING PROGon 09-15-2021 NURSING PROG [facility] Protimeon 09-15-2021 PT INR 3.3 High 0.9-1.3 [facility] Comment on above: Result Comment: Miryam min K Antagonist (VKA) Therapeutic Range: INR 2 to 3 (Target INR of 2.5)Note: For patients treated with VKA drugs, such as warfarin, the [place] [employer] 2012 Guideline recommends a therapeutic INR range of 2 to 3 (target INR of 2.5). This recommendation includes high-risk patients with antiphospholipid syndrome with previous arterial or venous thromboembolism, current-generation mechanical or bioprosthetic aortic heart valve replacement.Note: Patients with mechanical aortic valve replacement and additional risk factors for thromboembolic events (atrial fibrillation, previous thromboembolism, LV dysfunction, hypercoagulable conditions) or an older generation mechanical AVR (i.e., ball in-Cage) or any mechanical MVR should have a INR therapeutic range of 2.5 to 3.5 (target INR of 3).Sabrina GH, et al. Chest 2012, 141:7S-47SNishimura RA, et al. JACC 2017, 70: 252-289 PT Sec 33.1 sec High 9.7-13.0 [facility] THERAPY NTon 09-15-2021 THERAPY NT [facility] THERAPY NT [facility] ALLIED HEALTHon 09-14-2021 ALLIED HEALTH [facility] C-Reactive Proteinon 022 C-Reactive Protein 10.8 mg/dL High 0.0-0.9 [facility] Comment on above: Performed By: #### F T4 ####[facility] [address] [place], [place] [phone] CBC and Differentialon 09-14 Abs Baso 0.00 k/uL Normal <0.11 [facility] Abs [place] 0.08 k/uL Normal <0.87 [facility] Abs Neut 7.29 k/uL Normal 1.45-7.50 [facility] ANC(includeSEG+BAND) 7.29 k/uL Normal [facility] Basophils/100 WBC (Bld) 0.0 % Normal [facility] DTYPE Manual Diff Normal [facility] Eosinophils (Bld) [#/Vol] 0.08 10*3/uL Normal <0.46 [facility] Eosinophils/100 WBC (Bld) 1.0 % Normal [facility] Erythrocyte distribution width (RBC) [Ratio] 14.1 % Normal 11.5-15.0 [facility] Hematocrit (Bld) [Volume fraction] 42.4 % Normal 36.0-46.0 [facility] Hemoglobin (Bld) [Mass/Vol] 13.6 g/dL Normal 11.5-15.5 [facility] Lymphocytes (Bld) [#/Vol] 0.74 10*3/uL Low 1.00-4.00 [facility] Lymphocytes/100 WBC (Bld) 9.0 % Normal [facility] MCH 29.8 pG Normal 26.0-34.0 [facility] MCHC (RBC) [Mass/Vol] 32.1 g/dL Normal 30.5-36.0 [facility] MCV (RBC) [Entitic vol] 92.8 fL Normal 80.0-100.0 [facility] Monocytes/100 WBC (Bld) 1.0 % Normal [facility] Neutrophils/100 WBC (Bld) 89.0 % Normal [facility] Ovalocytes Few Normal [facility] Platelet Estimate Platelet estimate adequate Normal [facility] Platelet mean volume (Bld) [Entitic vol] 9.4 fL Normal 9.0-12.7 [facility] Platelets (Bld) [#/Vol] 339 10*3/uL Normal 150-400 [facility] RBC (Bld) [#/Vol] 4.57 10*6/uL Normal 3.90-5.20 [facility] WBC (Bld) [#/Vol] 8.19 10*3/uL Normal 3.70-11.00 [facility] CONSULTon 09-14-2021 CONSULT Normal [facility] CONSULT Normal [facility] CT CHEST WO IVCONon 09-14-19 CT CHEST WO IVCON Normal [facility] Comp Metabolic Panelon 09-14 Albumin [Mass/Vol] 2.9 g/dL Low 3.9-4.9 [facility] ALP [Catalytic activity/Vol] 73 U/L Normal 34-123 [facility] ALT [Catalytic activity/Vol] 29 U/L Normal 7-38 [facility] Anion gap [Moles/Vol] 12 mmol/L Normal 9-18 [facility] AST [Catalytic activity/Vol] 33 U/L Normal 13-35 [facility] Calcium [Mass/Vol] 9.4 mg/dL Normal 8.5-10.2 [facility] Chloride [Moles/Vol] 101 mmol/L Normal 97-105 [facility] CO2 [Moles/Vol] 25 mmol/L Normal 22-33 [facility] Creatinine [Mass/Vol] 1.21 mg/dL High 0.58-0.96 [facility] eGFR- Amer. 54 Normal [facility] eGFR-All Other Races 45 . Normal [facility] Comment on above: Result Comment: eGFR (Estimated GFR) Units of measure: mL/min/1.73 meters squaredeGFR is derived from the reexpressed MDRD Study equation using the following parameters: serum creatinine, age, gender and race. The creatinine assay has been calibrated to be traceable to IDMS.An eGFR <60 mL/min/1.73m2 for >3 months is consistent with chronic kidney disease. Refer to KDOQI guidelines for clinical interpretation.In patients with unstable renal function, e.g. those with acute kidney injury, the eGFR may not accurately reflect actual GFR.Note: On 11/08/2021, the eGFR calculation will be updated to the NKF-ASN Task Force recommended 2020 CKD-EPI creatinine equation which does not include a race variable. For more information or to access a 2020 CKD-EPI calculator, visit the National Kidney Foundation website at kidney.org/professionals/kdoqi/gfr_calculator. Glucose [Mass/Vol] 87 mg/dL Normal 74-99 [facility] Potassium [Moles/Vol] 4.1 mmol/L Normal 3.7-5.1 [facility] Protein [Mass/Vol] 6.2 g/dL Low 6.3-8.0 [facility] Sodium [Moles/Vol] 138 mmol/L Normal 136-144 [facility] Urea nitrogen [Mass/Vol] 33 mg/dL High 7-21 [facility] D dimeron 09-14-2021 D dimer 1320 ng/mL FEU High <500 [facility] Comment on above: Result Comment: 500 ng/mL FEU is the D Dimer cutoff to exclude DVT (deep vein thrombosis) and PE (pulmonary embolism) in patients with a low pre test probability.Supplemental Comment: In patients over 50 years with a low pre test probability for DVT and/or PE, an age adjusted D dimer cutoff can be calculated as [age x 10] ng/mL FEU. For example, a patient of 88 years would have an age adjusted D dimer cutoff of 880 ng/mL FEU.For patients with a suspected DVT, a D dimer level below 500 ng/mL FEU has a negative predictive value of >98.9%, a sensitivity of >96.9% and a specificity of >35.7%.For patients with a suspected PE, a D dimer level below 500 ng/mL FEU has a negative predictive value of >98.5%, and a sensitivity of >96.5% and a specificity of >38.8%.Reference: Clinton M, et al. SIL 2014 311:1117 and Van Adriana N, et al. Suzette Int Med 2016 165:253. Performed By: #### F T4 ####[facility] [address] [place], [place] [phone] ED NOTEon 09-14-2021 ED NOTE HNO ID: [id number] Author: Jesus Abreu RN Service: ? Author Type: Registered Nurse Type: ED Notes Filed: 09/14/2021 2:57 AM Note Text: Pt O2 sat at 90%. Placed on 2L NC. LIP notified. Normal [facility] ED NOTE HNO ID: [id number] Author: Dean Flores RN Service: ? Author Type: Registered Nurse Type: ED Notes Filed: 09/13/2021 11:43 PM Note Text: Covid sent Normal [facility] ED PROV NOTEon 09-14-2021 ED PROV NOTE Normal [facility] Expedited [id number] 09-14-19 SARS-CoV-2 (COVID-19) RNA CASSANDRA+probe Ql (Unsp spec) UPPER RESPIRATORY TRACT SWAB Normal [facility] Comment on above: Result Comment: No c all per procedure. 09/14/21 0147 SARS-CoV-2 (COVID-19) RNA CASSANDRA+probe Ql (Unsp spec) Positive for COVID19 (SARS CoV2) by RT-PCR or equivalent method. Critically abnormal Negative for COVID19 (SARS CoV2) by RT-PCR or equivalent method. [facility] Comment on above: Result Comment: This test has been authorized by FDA under an Emergency Use Authorization (EUA). Ferritinon 09-14-2021 Ferritin [Mass/Vol] 1846.0 ng/mL High 14.7-205.1 [facility] Comment on above: Performed By: #### F T4 ####[facility] [address] [place], [place] [phone] Free T4on 09-14-2021 Free T4 [Mass/Vol] 1.9 ng/dL High 0.9-1.7 [facility] Comment on above: Performed By: #### F T4 ####[facility] [address] [place], [place] [phone] HISTORY PHYSICALon HISTORY PHYSICAL Normal [facility] Hepatic Functn Panelon 09-14 Albumin [Mass/Vol] 3.1 g/dL Low 3.9-4.9 [facility] ALP [Catalytic activity/Vol] 75 U/L Normal 34-123 [facility] ALT [Catalytic activity/Vol] 31 U/L Normal 7-38 [facility] AST [Catalytic activity/Vol] 44 U/L High 13-35 [facility] Bilirubin [Mass/Vol] 1.3 mg/dL Normal 0.2-1.3 [facility] Bilirubin,Conjugated 0.2 mg/dL High <0.2 [facility] Protein [Mass/Vol] 6.1 g/dL Low 6.3-8.0 [facility] NURSING PROGon 09-14-2021 NURSING PROG Normal [facility] NURSING PROG Normal [facility] PT EDon 09-14-2021 PT ED Normal [facility] Procalcitoninon 09-14-2021 Procalcitonin <0.06 Normal <0.09 [facility] Comment on above: Result Comment: For a guided interpretation of test results, please visit the Change in Procalcitonin Calculator, [email or web address]. Performed By: #### P ROCAL ####[facility] [place], [place] [phone] Protimeon 09-14-2021 PT INR 5.2 High 0.9-1.3 [facility] Comment on above: Result Comment: Miryam min K Antagonist (VKA) Therapeutic Range: INR 2 to 3 (Target INR of 2.5)Note: For patients treated with VKA drugs, such as warfarin, the [place] [employer] 2012 Guideline recommends a therapeutic INR range of 2 to 3 (target INR of 2.5). This recommendation includes high-risk patients with antiphospholipid syndrome with previous arterial or venous thromboembolism, current-generation mechanical or bioprosthetic aortic heart valve replacement.Note: Patients with mechanical aortic valve replacement and additional risk factors for thromboembolic events (atrial fibrillation, previous thromboembolism, LV dysfunction, hypercoagulable conditions) or an older generation mechanical AVR (i.e., ball in-Cage) or any mechanical MVR should have a INR therapeutic range of 2.5 to 3.5 (target INR of 3).Sabrina GH, et al. Chest 2012, 141:7S-47SNishimura RA, et al. JACC 2017, 70: 252-289Called to and read back by: Gary Reynoso RN Aragon 3W 09/14/21 0715 Elsie Martinez PT Sec 51.3 sec High 9.7-13.0 [facility] ALLIED HEALTHon 09-13-2021 ALLIED HEALTH Normal [facility] CBC and Differentialon 09-13 Abs Baso 0.00 k/uL Normal <0.11 [facility] Abs [place] 0.46 k/uL Normal <0.87 [facility] Abs Neut 7.58 k/uL High 1.45-7.50 [facility] ANC(includeSEG+BAND) 7.58 k/uL Normal [facility] Anisocytosis Ql (Bld) Present Normal [facility] Basophils/100 WBC (Bld) 0.0 % Normal [facility] DTYPE Manual Diff Normal [facility] Eosinophils (Bld) [#/Vol] 0.18 10*3/uL Normal <0.46 [facility] Eosinophils/100 WBC (Bld) 2.0 % Normal [facility] Erythrocyte distribution width (RBC) [Ratio] 14.0 % Normal 11.5-15.0 [facility] Hematocrit (Bld) [Volume fraction] 47.2 % High 36.0-46.0 [facility] Hemoglobin (Bld) [Mass/Vol] 14.9 g/dL Normal 11.5-15.5 [facility] Lymphocytes (Bld) [#/Vol] 0.73 10*3/uL Low 1.00-4.00 [facility] Lymphocytes/100 WBC (Bld) 8.0 % Normal [facility] Lymphocytes/100 WBC (Bld) 1.0 % Normal [facility] MCH 29.3 pG Normal 26.0-34.0 [facility] MCHC (RBC) [Mass/Vol] 31.6 g/dL Normal 30.5-36.0 [facility] MCV (RBC) [Entitic vol] 92.9 fL Normal 80.0-100.0 [facility] Metamyelocytes/100 WBC (Bld) 1.0 % Normal [facility] Monocytes/100 WBC (Bld) 5.0 % Normal [facility] Neutrophils/100 WBC (Bld) 83.0 % Normal [facility] Platelet Clumping Present Normal [facility] Platelet Estimate Platelet estimate increased Normal [facility] Platelet mean volume (Bld) [Entitic vol] 9.5 fL Normal 9.0-12.7 [facility] Platelets (Bld) [#/Vol] 447 10*3/uL High 150-400 [facility] RBC (Bld) [#/Vol] 5.08 10*6/uL Normal 3.90-5.20 [facility] WBC (Bld) [#/Vol] 9.13 10*3/uL Normal 3.70-11.00 [facility] Comp Metabolic Panelon 09-13 Albumin [Mass/Vol] 3.4 g/dL Low 3.9-4.9 [facility] ALP [Catalytic activity/Vol] 98 U/L Normal 34-123 [facility] ALT [Catalytic activity/Vol] 47 U/L High 7-38 [facility] Anion gap [Moles/Vol] 14 mmol/L Normal 9-18 [facility] AST [Catalytic activity/Vol] 46 U/L High 13-35 [facility] Bilirubin [Mass/Vol] 1.1 mg/dL Normal 0.2-1.3 [facility] Calcium [Mass/Vol] 9.7 mg/dL Normal 8.5-10.2 [facility] Chloride [Moles/Vol] 99 mmol/L Normal 97-105 [facility] CO2 [Moles/Vol] 25 mmol/L Normal 22-33 [facility] Creatinine [Mass/Vol] 1.34 mg/dL High 0.58-0.96 [facility] eGFR- Amer. 48 Normal [facility] eGFR-All Other Races 40 . Normal [facility] Comment on above: Result Comment: eGFR (Estimated GFR) Units of measure: mL/min/1.73 meters squaredeGFR is derived from the reexpressed MDRD Study equation using the following parameters: serum creatinine, age, gender and race. The creatinine assay has been calibrated to be traceable to IDMS.An eGFR <60 mL/min/1.73m2 for >3 months is consistent with chronic kidney disease. Refer to KDOQI guidelines for clinical interpretation.In patients with unstable renal function, e.g. those with acute kidney injury, the eGFR may not accurately reflect actual GFR.Note: On 11/08/2021, the eGFR calculation will be updated to the NKF-ASN Task Force recommended 2020 CKD-EPI creatinine equation which does not include a race variable. For more information or to access a 2020 CKD-EPI calculator, visit the National Kidney Foundation website at [email or web address]/professionals/kdoqi/gfr_calculator. Glucose [Mass/Vol] 94 mg/dL Normal 74-99 [facility] Potassium [Moles/Vol] 4.1 mmol/L Normal 3.7-5.1 [facility] Protein [Mass/Vol] 7.4 g/dL Normal 6.3-8.0 [facility] Sodium [Moles/Vol] 138 mmol/L Normal 136-144 [facility] Urea nitrogen [Mass/Vol] 37 mg/dL High 7-21 [facility] Magnesiumon 09-13-2021 Magnesium [Mass/Vol] 2.4 mg/dL High 1.7-2.3 [facility] NT Pro BNPon 09-13-2021 PRO B Natr Peptide 9103 pg/mL High <125 [facility] Comment on above: Result Comment: For the ruling out or ruling in acute CHF:Rule out: <300 pg/mL all agesRule in: >450 pg/mL <50 years >900 pg/mL 50 to 75 years >1800 pg/mL >75 yearsGenevieve et al. The N Terminal Pro BNP Investigation of Dyspnea in the Emergency Department (PRIDE) Study. [place] Journal of Cardiology 2005:95:948 to 954.Lebron et al. The NT proBNP testing for diagnosis and short term prognosis in acute destabilized heart failure: and international pooled analysis of 1256 patients. Heart Journal 2006:27(3):330 to 337. Protimeon 09-13-2021 PT INR >8.0 High 0.9-1.3 [facility] Comment on above: Result Comment: Miryam min K Antagonist (VKA) Therapeutic Range: INR 2 to 3 (Target INR of 2.5)Note: For patients treated with VKA drugs, such as warfarin, the [place] [employer] 2012 Guideline recommends a therapeutic INR range of 2 to 3 (target INR of 2.5). This recommendation includes high-risk patients with antiphospholipid syndrome with previous arterial or venous thromboembolism, current-generation mechanical or bioprosthetic aortic heart valve replacement.Note: Patients with mechanical aortic valve replacement and additional risk factors for thromboembolic events (atrial fibrillation, previous thromboembolism, LV dysfunction, hypercoagulable conditions) or an older generation mechanical AVR (i.e., ball in-Cage) or any mechanical MVR should have a INR therapeutic range of 2.5 to 3.5 (target INR of 3).Guyatt GH, et al. Chest 2012, 141:7S-47SNishimura RA, et al. JACC 2017, 70: 252-289Called to and read back by:Bang Khan RN [facility] [phone] PT Sec 79.1 sec High 9.7-13.0 [facility] TSHon 09-13-2021 TSH Qn 4.750 m[IU]/L High 0.270-4.200 [facility] Troponin Ton 09-13-2021 Troponin T.cardiac [Mass/Vol] 0.092 ug/L High 0.000-0.029 [facility] Comment on above: Result Comment: No c all per procedure.09/13/2021 2233. XR CHEST 1V FRONTAL PORTon 0 09-13-2021 XR CHEST 1V FRONTAL PORT Normal [facility] CNPNon 08-18-2021 CNPN Telephone (AGCARDHWG ) EM DANIEL ([id number]) 1955 F T Date Time Provider Department 08/18/21 SONDRA GRANADOS AGCARDHWG During your visit today, we recorded the following information about you: Sondra Lagunas LPN 08/18/2021 3:51 PM Signed Last seen by on 03/21/2021. Patient instructed to follow up in 6 months to one year. Please call patient with appointment. VALENTE Contreras 08/20/2021 11:16 AM Signed I called and LVM fpr patient to call back and schedule with SHEEP CLIPPER. Thanks Antoinette Ortega Allergies As of Date: 08/18/2021 (No Known Allergies) Date Reviewed: 07/30/2021 Reviewed by: Kaylynn Fitzpatrick RN - Fully Assessed Reason for Visit: Appointment [186] Prescriptions as of 08/20/2021 - furosemide (LASIX) 40 mg tablet Take 1 tablet by mouth once daily. - amiodarone (PACERONE) 200 mg tablet Take 1 tablet by mouth once daily. Take 2 tablets every 12 hours for 1 week, then 1 tablet every 24 hours - methIMAzole (TAPAZOLE) 5 mg tablet Take 1/2 (one-half) tablet by mouth once daily - warfarin (COUMADIN) 5 mg tablet 7.5 mg Mon/Wed/Wed/Sat, 5 mg all other days or as directe - metoprolol tartrate, short acting, (LOPRESSOR) 100 mg tablet Take 1 tablet by mouth twice daily. - potassium chloride (K-TAB) 10 mEq tablet Take 1 tablet by mouth daily with breakfast. - lisinopril 2.5 mg tablet Take 1 tablet by mouth once daily. - aspirin 81 mg chewable tablet Take 81 mg by mouth once daily. - multivitamin tablet Take 1 tablet by mouth once daily. - Qajnxjm-Vym-Wbs K3-U1-Xbsjvlzq (CALCIUM CITRATE + D WITH MAG) 483-29-7-125 kl-uz-kj-unit tab Take 1 tablet by mouth once daily. - Cholecalciferol, Vitamin D3, 5,000 unit tab Take 1 tablet by mouth once daily. Facility-Administered Medications as of 08/20/2021 - perflutren lipid microspheres 1.3 mL in NaCl (PF) 0.9% 10 mL injection (DEFINITY) - sodium chloride 0.9 % (flush) 10 mL (BD POSIFLUSH) Problem List As Of Date 08/18/2021 Noted Resolved Hypertrophic obstructive cardiomyopathy (HCC) [*05/01/2015 AICD (automatic cardioverter/defibrillator) pre*05/01/2015 Atrial fibrillation (HCC) [I48.91] 05/01/2015 Hyperthyroidism [E05.90] 05/01/2015 DDD (degenerative disc disease), cervical [M50.*05/01/2015 Vertebral compression fracture (HCC) [M48.50XA] 05/01/2015 Other allergic rhinitis [J30.89] 05/01/2015 Gastroesophageal reflux disease without esophag*05/01/2015 S/P MVR (mitral valve repair) [Z98.890] 08/01/2020 Pulmonary hypertension (HCC) [I27.20] 08/01/2020 Essential hypertension [I10] 08/01/2020 History of transient ischemic attack (TIA) [Z86*08/01/2020 Diarrhea [R19.7] 08/01/2020 Osteopenia, senile [M85.80] 01/21/2021 Stage 3b chronic kidney disease (HCC) [N18.32] 01/21/2021 Encounter Status:Closed by SONDRA LAGUNAS on 08/18/21 [facility] OBSOLETEon 08-18-2021 OBSOLETE Refill (AGCARDPOB) EM DANIEL ([id number]) 1955 F [facility] Date Time Provider Department 08/18/21 MITZI VARELA AGCARDPOB During your visit today, we recorded the following information about you: Sondra Lagunas LPN 08/18/2021 3:52 PM Signed Patient's request for medication is as follows: Pending Prescriptions Disp Refills FUROSEMIDE 40 MG TABLET 90 tablet 1 Sig: Take 1 tablet by mouth once daily. NEHAL: No Last seen by on 03/21/2021. Patient instructed to follow up in 6 months to one year. Message sent to clerical requesting they contact patient with appointment. Prescription(s) as above. Please process accordingly. Sondra Lagunas LPN Allergies As of Date: 08/18/2021 (No Known Allergies) Date Reviewed: 07/30/2021 Reviewed by: Kaylynn Fitzpatrick RN - Fully Assessed Reason for Visit: Refill Request [94] Visit Diagnosis:Hypertrophic cardiomyopathy (HCC) [I42.2] Order(s):furosemide (LASIX) 40 mg tabletTake 1 tablet by mouth once daily.Disp: 90 tabletRfl: 1 Prescriptions as of 08/18/2021 - furosemide (LASIX) 40 mg tablet Take 1 tablet by mouth once daily. - amiodarone (PACERONE) 200 mg tablet Take 1 tablet by mouth once daily. Take 2 tablets every 12 hours for 1 week, then 1 tablet every 24 hours - methIMAzole (TAPAZOLE) 5 mg tablet Take 1/2 (one-half) tablet by mouth once daily - warfarin (COUMADIN) 5 mg tablet 7.5 mg Mon/Wed/Wed/Sat, 5 mg all other days or as directe - metoprolol tartrate, short acting, (LOPRESSOR) 100 mg tablet Take 1 tablet by mouth twice daily. - potassium chloride (K-TAB) 10 mEq tablet Take 1 tablet by mouth daily with breakfast. - lisinopril 2.5 mg tablet Take 1 tablet by mouth once daily. - aspirin 81 mg chewable tablet Take 81 mg by mouth once daily. - multivitamin tablet Take 1 tablet by mouth once daily. - Edbfrrq-Mtc-Rzr Y8-W7-Apetlzjn (CALCIUM CITRATE + D WITH MAG) 179-54-1-125 hw-sz-ko-unit tab Take 1 tablet by mouth once daily. - Cholecalciferol, Vitamin D3, 5,000 unit tab Take 1 tablet by mouth once daily. Facility-Administered Medications as of 08/18/2021 - perflutren lipid microspheres 1.3 mL in NaCl (PF) 0.9% 10 mL injection (DEFINITY) - sodium chloride 0.9 % (flush) 10 mL (BD POSIFLUSH) Problem List As Of Date 08/18/2021 Noted Resolved Hypertrophic obstructive cardiomyopathy (HCC) [*05/01/2015 AICD (automatic cardioverter/defibrillator) pre*05/01/2015 Atrial fibrillation (HCC) [I48.91] 05/01/2015 Hyperthyroidism [E05.90] 05/01/2015 DDD (degenerative disc disease), cervical [M50.*05/01/2015 Vertebral compression fracture (HCC) [M48.50XA] 05/01/2015 Other allergic rhinitis [J30.89] 05/01/2015 Gastroesophageal reflux disease without esophag*05/01/2015 S/P MVR (mitral valve repair) [Z98.890] 08/01/2020 Pulmonary hypertension (HCC) [I27.20] 08/01/2020 Essential hypertension [I10] 08/01/2020 History of transient ischemic attack (TIA) [Z86*08/01/2020 Diarrhea [R19.7] 08/01/2020 Osteopenia, senile [M85.80] 01/21/2021 Stage 3b chronic kidney disease (HCC) [N18.32] 01/21/2021 Prescriptions ordered this encounter Disp Refills Start End FUROSEMIDE 40 MG TABLET 90 t* 1 08/18/2021 Cmt: Patient requires an over due appointment prior to future refills. Route: ORAL Sig: Take 1 tablet by mouth once daily. Medications Discontinued During This Encounter Prescriptions - furosemide (LASIX) 40 mg tablet (Discontinued) Take 1 tablet by mouth once daily. Encounter Status:Closed by SONDRA GRANADOS on 08/18/21 [facility] OBSOLETEon 04-07-2021 OBSOLETE Refill (AGCARDPOB) EM DANIEL ([id number]) 1955 F [facility] Date Time Provider Department 04/07/21 MITZI VARELA During your visit today, we recorded the following information about you: Sondra Lagunas LPN 04/07/2021 3:45 PM Signed Patient's request for medication is as follows: Pending Prescriptions Disp Refills METOPROLOL TARTRATE 100 MG TABLET 180 tablet 3 Sig: Take 1 tablet by mouth twice daily. NEHAL: No Last seen 03/21/2021. Pharmacy states never received 08/2020 script. Prescription(s) as above. Please process accordingly. Sondra Lagunas LPN Allergies As of Date: 04/07/2021 (No Known Allergies) Date Reviewed: 03/25/2021 Reviewed by: Mitzi Varela MD - Fully Assessed Reason for Visit: Refill Request [94] Visit Diagnosis:Hypertrophic cardiomyopathy (HCC) [I42.2] Order(s):metoprolol tartrate, short acting, (LOPRESSOR) 100 mg tabletTake 1 tablet by mouth twice daily.Disp: 180 tabletRfl: 3 Prescriptions as of 04/08/2021 - metoprolol tartrate, short acting, (LOPRESSOR) 100 mg tablet Take 1 tablet by mouth twice daily. - furosemide (LASIX) 40 mg tablet Take 1 tablet by mouth once daily. - warfarin (COUMADIN) 5 mg tablet 7.5 mg Mon and 5 mg all other days or as directed - potassium chloride (K-TAB) 10 mEq tablet Take 1 tablet by mouth daily with breakfast. - methIMAzole (TAPAZOLE) 5 mg tablet Take 0.5 tablets by mouth once daily. - dofetilide (TIKOSYN) 250 mcg capsule Take 1 capsule by mouth twice daily. - lisinopril 2.5 mg tablet Take 1 tablet by mouth once daily. - POTASSIUM-99 ORAL Take 1 tablet by mouth once daily. - aspirin 81 mg chewable tablet Take 81 mg by mouth once daily. - multivitamin tablet Take 1 tablet by mouth once daily. - Kocehzt-Jkr-Gcz C9-R8-Ztlpvlcy (CALCIUM CITRATE + D WITH MAG) 134-19-9-125 xk-wt-cd-unit tab Take 1 tablet by mouth once daily. - Cholecalciferol, Vitamin D3, 5,000 unit tab Take 1 tablet by mouth once daily. Facility-Administered Medications as of 04/08/2021 - perflutren lipid microspheres 1.3 mL in NaCl (PF) 0.9% 10 mL injection (DEFINITY) - sodium chloride 0.9 % (flush) 10 mL (BD POSIFLUSH) Problem List As Of Date 04/07/2021 Noted Resolved Hypertrophic obstructive cardiomyopathy (HCC) [*05/01/2015 AICD (automatic cardioverter/defibrillator) pre*05/01/2015 Atrial fibrillation (HCC) [I48.91] 05/01/2015 Hyperthyroidism [E05.90] 05/01/2015 DDD (degenerative disc disease), cervical [M50.*05/01/2015 Vertebral compression fracture (HCC) [M48.50XA] 05/01/2015 Other allergic rhinitis [J30.89] 05/01/2015 Gastroesophageal reflux disease without esophag*05/01/2015 S/P MVR (mitral valve repair) [Z98.890] 08/01/2020 Pulmonary hypertension (HCC) [I27.20] 08/01/2020 Essential hypertension [I10] 08/01/2020 History of transient ischemic attack (TIA) [Z86*08/01/2020 Diarrhea [R19.7] 08/01/2020 Osteopenia, senile [M85.80] 01/21/2021 Stage 3b chronic kidney disease (HCC) [N18.32] 01/21/2021 Prescriptions ordered this encounter Disp Refills Start End METOPROLOL TARTRATE 100 MG TABLET 180 * 3 04/08/2021 Route: ORAL Sig: Take 1 tablet by mouth twice daily. Medications Discontinued During This Encounter Prescriptions - metoprolol tartrate, short acting, (LOPRESSOR) 100 mg tablet (Discontinued) Take 1 tablet by mouth twice daily. Encounter Status:Closed by [facility] Office Visit (AGCARD POB) EM DANIEL ([id number]) 1955 F [facility] Date Time Provider Department 03/21/21 11:00 AM MITZI VARELAARDPOB During your visit today, we recorded the following information about you: Pulse Respiration Blood pressure Weight 80/minute 16/minute 118/70 66.7 kg Height 1.651 m Brittnee Vela MA 03/21/2021 11:12 AM Signed Patient complains of shortness of breath today. Mitzi Varela MD 03/21/2021 11:42 AM Signed Dear Ms. Daniel, Thank you for visiting us at the cardiology clinic. You seem to be doing well from a heart standpoint. As we discussed, we will obtain a repeat heart ultrasound (echocardiogram) to evaluate for interval change in the pumping function of the heart. We will also evaluate the integrity of the artificial heart valve. I will follow-up with you with the test results. Please do not hesitate to contact us with questions. Best regards, Mitzi Varela MD, FACP, FACC, [facility] punch box tender, [facility] Staff Cupola Operator Section of Invasive and Interventional Cardiology Physician Non Invasive Cardiologist of Clinical Research Section of Regional Cardiovascular Medicine Heart, Vascular, and Thoracic [facility] [address], [address] [place] [address] Facsimile: [phone] Work: [email or web address] Personal/Research: [email or web address] Mitzi Varela MD 03/25/2021 2:52 PM Sign when Signing Visit HISTORY OF PRESENT ILLNESS: Ms. Daniel is a delightful 65-year-old woman who visits us at the cardiology clinic for a follow-up appointment. She has an established history of hypertrophic cardiomyopathy, treated with surgical septal myectomy and mitral valve replacement with a mechanical mitral valve. Other sequela of hypertrophic cardiomyopathy include atrial fibrillation, treated with catheter ablation. She is currently on anticoagulation for stroke prevention in atrial fibrillation with an oral vitamin K antagonist, warfarin. She denies symptoms of chest pain, dyspnea, exertional intolerance, nausea, diaphoresis, dizziness, lightheadedness or syncope. ? Her past medical history is as mentioned below, and is also relevant for hyperthyroidism on methimazole. PAST MEDICAL HISTORY Diagnosis Date - Atrial fibrillation (HCC) - GERD (gastroesophageal reflux disease) - H/O mitral valve replacement mechanical valve - H/O myomectomy cardiac - HOCM (hypertrophic obstructive cardiomyopathy) (HCC) - HTN (hypertension) - Hypertrophic cardiomyopathy (HCC) - ICD (implantable cardioverter-defibrillator) in place - Palpitations - Tachycardia - TIA (transient ischemic attack) history of - V tach (HCC) PAST SURGICAL HISTORY Procedure Laterality Date - AICD, DUAL CHAMBER 2007 - HYSTERECTOMY HX - LAMINECTOMY,CERVICAL 1996 DISCECTOMY. Laminectomy, cervical - STAB PHLEBECTOMY VARICOSE VEINS >20 SOCIAL HISTORY Social History Tobacco Use - Smoking status: Former Smoker Packs/day: 1.00 Years: 10.00 Pack years: 10.00 Types: Cigarettes Quit date: 05/01/1983 Years since quittin.9 - Smokeless tobacco: Never Used Vaping Use - Vaping Use: Never used Substance Use Topics - Alcohol use: Yes Comment: Rare - Drug use: Never FAMILY HISTORY Problem Relation Age of Onset - Breast Cancer Maternal Grandmother - Alzheimer's Disease Mother - Stroke Mother - Alcohol/Drug Father ALCOHOL - Heart Father ?CAROTID. ALLERGIES: ALLERGIES No Known Allergies MEDICATIONS: furosemide (LASIX) 40 mg tablet Take 1 tablet by mouth once daily. warfarin (COUMADIN) 5 mg tablet 7.5 mg Mon and 5 mg all other days or as directed potassium chloride (K-TAB) 10 mEq tablet Take 1 tablet by mouth daily with breakfast. methIMAzole (TAPAZOLE) 5 mg tablet Take 0.5 tablets by mouth once daily. budesonide, enteric coated (ENTOCORT EC) 3 mg 24 hr capsule Take 3 capsules by mouth once daily. dofetilide (TIKOSYN) 250 mcg capsule Take 1 capsule by mouth twice daily. metoprolol tartrate, short acting, (LOPRESSOR) 100 mg tablet Take 1 tablet by mouth twice daily. lisinopril 2.5 mg tablet Take 1 tablet by mouth once daily. aspirin 81 mg chewable tablet Take 81 mg by mouth once daily. multivitamin tablet Take 1 tablet by mouth once daily. Nalzwgr-Qdo-Hwa A4-O2-Mfpygcib (CALCIUM CITRATE + D WITH MAG) 951-58-3-125 dd-ra-ms-unit tab Take 1 tablet by mouth once daily. Cholecalciferol, Vitamin D3, 5,000 unit tab Take 1 tablet by mouth once daily. POTASSIUM-99 ORAL Take 1 tablet by mouth once daily. REVIEW OF SYSTEMS: A 14-point review of systems, other than those mentioned in the History of Present Illness, is unremarkable. PHYSICAL EXAMINATION: BP 118/70 Pulse 80 Resp 16 Ht 5' 5 (1.65m) Wt 147 lb (66.7kg) SpO2 98% BMI 24.46 kg/(m2). Marki (more content not included)... Normal [facility] OBSOLETEon 03-12-2021 OBSOLETE Refill (AGCARDPOB) EM DANIEL ([id number]) 1955 F T Date Time Provider Department 03/12/21 MITZI VARELA During your visit today, we recorded the following information about you: Bernadette Caldwell RN 03/12/2021 9:10 AM Signed Patient called and is out of Furosemide and requesting a refill, scheduled to see Dr. Varela on 03/14/2021. Patient's request for medication is as follows: Pending Prescriptions Disp Refills FUROSEMIDE 40 MG TABLET 90 tablet 1 Sig: Take 1 tablet by mouth once daily. NEHAL: No Last OV dated 03/04/[address] Varela. Prescription(s) as above. Please process accordingly. Bernadette Caldwell RN Allergies As of Date: 03/12/2021 (No Known Allergies) Date Reviewed: 01/16/2021 Reviewed by: Vilma Crespo Ma - Fully Assessed Reason for Visit: Refill Request [94] Visit Diagnosis:Hypertrophic cardiomyopathy (HCC) [I42.2] Order(s):furosemide (LASIX) 40 mg tabletTake 1 tablet by mouth once daily.Disp: 90 tabletRfl: 1 Prescriptions as of 03/12/2021 Sig: FUROSEMIDE 40 MG TABLET Take 1 tablet by mouth once d* POTASSIUM CHLORIDE ER 10 MEQ * Take 1 tablet by mouth daily * METHIMAZOLE 5 MG TABLET Take 0.5 tablets by mouth onc* X WARFARIN 5 MG TABLET Take 1 tablet by mouth once d* BUDESONIDE DR - ER 3 MG CAPSU* Take 3 capsules by mouth once* DOFETILIDE 250 MCG CAPSULE Take 1 capsule by mouth twice* METOPROLOL TARTRATE 100 MG TA* Take 1 tablet by mouth twice * LISINOPRIL 2.5 MG TABLET Take 1 tablet by mouth once d* POTASSIUM-99 ORAL Take 1 tablet by mouth once d* ASPIRIN 81 MG CHEWABLE TABLET Take 81 mg by mouth once melia* MULTIVITAMIN TABLET Take 1 tablet by mouth once d* BLWNWKJ-MUM-VJU J3-U2-NRBSNGP* Take 1 tablet by mouth once d* CHOLECALCIFEROL (VITAMIN D3) * Take 1 tablet by mouth once d* Problem List As Of Date 03/12/2021 Noted Resolved Hypertrophic obstructive cardiomyopathy (HCC) [*05/01/2015 AICD (automatic cardioverter/defibrillator) pre*05/01/2015 Atrial fibrillation (HCC) [I48.91] 05/01/2015 Hyperthyroidism [E05.90] 05/01/2015 DDD (degenerative disc disease), cervical [M50.*05/01/2015 Vertebral compression fracture (HCC) [M48.50XA] 05/01/2015 Other allergic rhinitis [J30.89] 05/01/2015 Gastroesophageal reflux disease without esophag*05/01/2015 S/P MVR (mitral valve repair) [Z98.890] 08/01/2020 Pulmonary hypertension (HCC) [I27.20] 08/01/2020 Essential hypertension [I10] 08/01/2020 History of transient ischemic attack (TIA) [Z86*08/01/2020 Diarrhea [R19.7] 08/01/2020 Osteopenia, senile [M85.80] 01/21/2021 Stage 3b chronic kidney disease (HCC) [N18.32] 01/21/2021 Prescriptions ordered this encounter Disp Refills Start End FUROSEMIDE 40 MG TABLET 90 t* 1 03/13/2021 Route: ORAL Sig: Take 1 tablet by mouth once daily. Medications Discontinued During This Encounter Prescriptions - furosemide (LASIX) 40 mg tablet (Discontinued) Take 1 tablet by mouth once daily. Encounter Status:Closed by MITZI VARELA on 03/13/21 [facility] OBSOLETEon 02-04-2021 OBSOLETE Refill (AGCARDPOB) EM DANIEL ([id number]) 1955 F T Date Time Provider Department 02/04/21 MITZI VARELAARDPOBarb During your visit today, we recorded the following information about you: Bernadette Caldwell RN 02/04/2021 1:53 PM Signed Patient's request for medication is as follows: Pending Prescriptions Disp Refills FUROSEMIDE 40 MG TABLET 30 tablet 0 Sig: Take 1 tablet by mouth once daily. NEHAL: No Last OV dated 03/04/[address] Varela. Patient instructed to schedule annual appointment. Prescription(s) as above. Please process accordingly. Bernadette Caldwell RN Allergies As of Date: 02/04/2021 (No Known Allergies) Date Reviewed: 01/16/2021 Reviewed by: Vilma Crespo Ma - Fully Assessed Reason for Visit: Refill Request [94] Visit Diagnosis:Hypertrophic cardiomyopathy (HCC) [I42.2] Order(s):furosemide (LASIX) 40 mg tabletTake 1 tablet by mouth once daily.Disp: 30 tabletRfl: 0 Prescriptions as of 02/04/2021 Sig: FUROSEMIDE 40 MG TABLET Take 1 tablet by mouth once d* WARFARIN 5 MG TABLET Take 1 tablet by mouth once d* BUDESONIDE DR - ER 3 MG CAPSU* Take 3 capsules by mouth once* DOFETILIDE 250 MCG CAPSULE Take 1 capsule by mouth twice* METOPROLOL TARTRATE 100 MG TA* Take 1 tablet by mouth twice * LISINOPRIL 2.5 MG TABLET Take 1 tablet by mouth once d* METHIMAZOLE 5 MG TABLET Take 0.5 tablets by mouth onc* POTASSIUM-99 ORAL Take 1 tablet by mouth once d* ASPIRIN 81 MG CHEWABLE TABLET Take 81 mg by mouth once melia* MULTIVITAMIN TABLET Take 1 tablet by mouth once d* DFCVSVU-WEX-TWQ L5-L2-LZKMJPN* Take 1 tablet by mouth once d* CHOLECALCIFEROL (VITAMIN D3) * Take 1 tablet by mouth once d* Problem List As Of Date 02/04/2021 Noted Resolved Hypertrophic obstructive cardiomyopathy (HCC) [*05/01/2015 AICD (automatic cardioverter/defibrillator) pre*05/01/2015 Atrial fibrillation (HCC) [I48.91] 05/01/2015 Hyperthyroidism [E05.90] 05/01/2015 DDD (degenerative disc disease), cervical [M50.*05/01/2015 Vertebral compression fracture (HCC) [M48.50XA] 05/01/2015 Other allergic rhinitis [J30.89] 05/01/2015 Gastroesophageal reflux disease without esophag*05/01/2015 S/P MVR (mitral valve repair) [Z98.890] 08/01/2020 Pulmonary hypertension (HCC) [I27.20] 08/01/2020 Essential hypertension [I10] 08/01/2020 History of transient ischemic attack (TIA) [Z86*08/01/2020 Diarrhea [R19.7] 08/01/2020 Osteopenia, senile [M85.80] 01/21/2021 Stage 3b chronic kidney disease (HCC) [N18.32] 01/21/2021 Prescriptions ordered this encounter Disp Refills Start End FUROSEMIDE 40 MG TABLET 30 t* 0 02/04/2021 Cmt: Patient needs to schedule appointment for future refills. Route: ORAL Sig: Take 1 tablet by mouth once daily. Medications Discontinued During This Encounter Prescriptions - furosemide (LASIX) 40 mg tablet (Discontinued) Take 1 tablet by mouth once daily. Encounter Status:Closed by MITZI VARELA on 02/04/21 [facility] Protimeon 03-04-2020 INR Coag (PPP) [Relative time] 4.23 {INR} High 0.90-1.30 [facility] Comment on above: Result Comment: Miryam min K Antagonist (VKA) Therapeutic Range: INR 2 to 3 (Target INR of 2.5) Note: For patients treated with VKA drugs, such as warfarin, the [place] 2012 Guideline recommends a therapeutic INR range of 2 to 3 (target INR of 2.5). This recommendation includes high-risk patients with antiphospholipid syndrome with previous arterial or venous thromboembolism, current-generation mechanical or bioprosthetic aortic heart valve replacement. Note: Patients with mechanical aortic valve replacement and additional risk factors for thromboembolic events (atrial fibrillation, previous thromboembolism, LV dysfunction, hypercoagulable conditions) or an older generation mechanical AVR (i.e., ball in-Cage) or any mechanical MVR should have a INR therapeutic range of 2.5 to 3.5 target INR of 3). Sabrina GH, et al. Chest 2012; 141:7S-47S dahlia Jackson RA al. JAC 2017; 70: 252-289 Performed By: #### P T #### [facility] [address] [place], [place] [address] PT Coag (PPP) [Time] 44.4 s High 9.7-13.0 [facility] Comment on above: Performed By: #### P T #### [address] [address] TSHon 03-04-2020 TSH Qn m[IU]/L Low 0.270-4.200 [facility] Comment on above: Result Comment: Preg radha: 1st trimester:(9-12 weeks):0.180-2.900 uIU/mL 2nd trimester: 0.110-3.980 uIU/mL 3rd trimester: 0.480-4.710 uIU/mL Patients taking a biotin dose of up to 5 mg/day should refrain from taking biotin for 4 hours prior to sample collection. Patients taking a biotin dose of 5 to 10 mg/day should refrain from taking biotin for 8 hours prior to sample collection. Patients taking a biotin dose > 10 mg/day should consult with their physician or the laboratory prior to having a sample taken. Clinicians should consider biotin interference as a source of error, when clinically suspicious of the laboratory result. Performed By: #### T SH3 #### [address] [address] TSH Reflexon 06-12-2019 TSH Qn 1.310 uIU/mL Normal 0.358-3.740 [facility] Comment on above: Result Comment: Free T4 reflexed if TSH is less than or greater than the reference range. Performed By: #### T SHR #### [address] [address] Follow Up (Endocrinology)on 09-17-2018 Follow Up (Endocrinology) Chief Complaint Visit For: Other Patient here for follow up visit for hyperthyroidism. History of Present IllnessMsMarco Daniel is a 62 years old female with a history of HCM s/p dual chamber ICD, atrial fibrillation, s/p extensive septal myomectomy, mechanical MVR, Afib and Aflutter s/p RFA and hyperthyroidism who presents today for follow up.Per the patient she was diagnosed with hyperthyroidism 8 years ago. She was evaluated for Afib and weight loss and was found to have abnormal TFTs. Since then she has been on medical treatment stopped last year for few months but was restarted in 12/2017 after she became biochemically hyperthyroid after receiving IV contrast for CT angio for evaluation for TIA in 10/2017. She also had a thyroid nodules and underwent FNAB and per the patient it was benign. No FH of thyroid disease. No neck radiation exposure.Patient was last seen 01/2018. She is currently maintained on methimazole 2.5mg daily since 12/2017. Doing fine. No major complaints. Reports good energy level throughout the day but has dyspnea on exertion. Her sleep is okay, no hot flashes or night sweats. She noticed recently that she is more cold intolerant than before. No palpitations or tremors. Shes been trying to lose weight but couldnt, weight is stable, normal BM with probiotics. She denies dry eyes or sensitive to sunlight.During last visit, patient complained of cough especially after eating. She was started on omeprazole 40mg with no improvement. Currently taking omeprazole at night. She states that she feels she needs to clear her throat after eating, no chocking. She is retired 3 years ago. She lives in [facility]. She had menopause 8 years ago.Home Meds:Metoprolol 100 mg BIDMethimazole 2.5 mg dailyASALasix 40mgTykison 250Omeprazole 40mgVitamin D 1000 bidMultilexCoumadin Review of SystemsConstitutional: appetite is not normal, but no fever, no chills and no recent weight loss. Endocrine:. no sleep disturbances. no change in energy level. no muscle weakness. no hot flashes. no night sweats. no intolerance to heat. intolerance to cold. Eyes: eyes not red, no change in vision, no dryness of the eyes and no itching of the eyes. Active Problems Atrial fibrillation (427.31) (I48.91) Hyperthyroidism (242.90) (E05.90) Hypertrophic cardiomyopathy (425.18) (I42.2) Mitral valve disease (394.9) (I05.9) S/P mitral valve replacement (V43.3) (Z95.2) S/P ventricular septal myectomy (V45.89) (Z98.890) Ventricular tachycardia (427.1) (I47.2) Past Medical History Hyperthyroidism (242.90) (E05.90) Hypertrophic cardiomyopathy (425.18) (I42.2) Mitral valve disease (394.9) (I05.9) S/P mitral valve replacement (V43.3) (Z95.2) S/P ventricular septal myectomy (V45.89) (Z98.890) Surgical History History of Cardio-defib Pulse Generator Type Dual-Chamber History of Catheter Ablation Atrial Fibrillation History of Catheter Ablation Atrial Flutter History of Myotomy For Congenital Hypertrophic Ventricular Septum Family History Family history of Diabetes mellitus of other type with microalbuminuria, without long-termcurrent use of insulin Family history of coronary artery disease (V17.3) (Z82.49) Family history of diabetes mellitus (V18.0) (Z83.3) Social History Alcohol use (V49.89) (Z78.9) Former smoker (V15.82) (Z87.891) Quit 34 years ago No illicit drug use Allergies No Known Drug Allergies Recorded By: Keke Vee; 04/02/2016 1:57:58 PM Current Meds Dofetilide 250 MCG Oral Capsule; 1 CAP(S) ORALLY EVERY 12 HOURS Requested for:[id number]; Last Rx:[id number] Ordered Rx By: Oneyda Jewell; Dispense: 90 Days ; #:180 Capsule; Refill: 3;For: Atrial fibrillation; NEHAL = N; Verified Transmission to [facility] Warfarin Sodium 5 MG Oral Tablet; TAKE 1.5 TABLET Daily or as directed by [facility];Therapy: [id number] to (Evaluate:21Nov2018) Requested for: 26Nov2017; LastRx:[id number] Ordered Rx By: Oneyda Jewell; Dispense: 90 Days ; #:110 Tablet; Refill: 3;For: Atrial fibrillation; NEHAL = N; Rx auto-faxed to [facility]; Last Updated By: Gretchen Asif; 11/26/2017 8:14:18 PM Potassium Chloride Courtney ER 20 MEQ Oral Tablet Extended Release; TAKE 1 TABLETDAILY Requested for: [id number]; Last Rx:[id number] Ordered Rx By: Oneyda Jewell; Dispense: 90 Days ; #:90 Tablet Extended Release; Refill: 3;For: Atrial fibrillation, Mitral valve disease; NEHAL = N; Verified Transmission to [facility] # 206 Aspirin 81 MG Oral Tablet Delayed Release; TAKE 1 TABLET DAILY DIRECTED;Therapy: (Recorded:25Jun2017) to Recorded Dispense: 0 Days ; #: Sufficient Tablet Delayed Release; Refill: 0;For: Health Maintenance; NEHAL = N; Record; Last Updated By: Syeda Villafuerte; 06/25/2017 9:19:54 AM Calcium Magnesium 750 300-300 MG Oral Tablet; TAKE 1 TABLET DAILY;Therapy: [id number] to Recorded Dispense: 0 Days ; #: Sufficient Tablet; Refill: 0;For: Health Maintenance; NEHAL = N; Record; Last Updated By: Syeda Villafuerte; 06/25/2017 9:28:09 AM Multilex Oral Tablet; TAKE 1 TABLET DAILY;Therapy: [id number] to Recorded Dispense: 0 Days ; #: Sufficient Tablet; Refill: 0;For: Health Maintenance; NEHAL = N; Record; Last Updated By: Syeda Villafuerte; 06/25/2017 9:19:55 AM Vitamin D TABS; Take as directed;Therapy: (Recorded:25Jun2017) to Recorded Dispense: 0 Days ; #: Sufficient Tablet; Refill: 0;For: Health Maintenance; NEHAL = N; Record; Last Updated By: Syeda Villafuerte; 06/25/2017 9:19:55 AM Esomeprazole Magnesium 40 MG Oral Capsule Delayed Release; TAKE 1 CAPSULEONCE A DAY DIRECTED;Therapy: [id number] to (Evaluate:03Mar2019) Requested for: [id number]; LastRx:[id number] Ordered Rx By: Marcia Nolasco; Dispense: 30 Days ; #:30 Capsule Delayed Release; Refill: 10;For: Hyperthyroidism; NEHAL = N; Verified Transmission to [facility] # 206 MethIMAzole 5 MG Oral Tablet; TAKE 0.5 TABLET ONCE DAILY;Therapy: [id number] to (Evaluate:57Rrd2570) Requested for: [id number]; LastRx:[id number] Ordered Rx By: Marcia Nolasco; Dispense: 30 Days ; #:15 Tablet; Refill: 8;For: Hyperthyroidism; NEHAL = N; Verified Transmission to [facility] # 206 Furosemide 40 MG Oral Tablet; TAKE ONE TABLET NEEDED FOR LOWEREXTREMITY EDEMA UP TO ONCE DAILY;Therapy: [id number] to (Evaluate:03Aug2018) Requested for: [id number]; LastRx:[id number]; Status: ACTIVE - Renewal Denied Ordered Rx By: -Sparano, Oneyda; Dispense: 30 Days ; #:30 Unit; Refill: 3;For: Hypertrophic cardiomyopathy; NEHAL = N; Verified Transmission to [facility] # 206; Last Updated By: DynamicOps; 09/07/2018 2:38:21 PM Metoprolol Tartrate 100 MG Oral Tablet; Take 1 tablet twice daily Requested for:[id number]; Last Rx:[id number]; Status: ACTIVE - Renewal Denied Ordered Rx By: -Sparano, Oneyda; Dispense: 30 Days ; #:60 X 60 Tablet Bottle; Refill: 3;For: Hypertrophic cardiomyopathy; NEHAL = N; Verified Transmission to [facility] # 206; Last Updated By: DynamicOps; 08/17/2018 3:11:26 PM Vitals Vital Signs Recorded: 16Sep2018 10:01AMHeart [id number], RUE, SmocwtiVtkirynld06, RUE, SittingBlood Pressure Cuff TkiwYmkfhXcvsxa566 lb 9.6 ozBMI Jbnliojnhd27.18BSA Calculated1.89Pain Scale0 Physical ExamConstitutional General appearance: Alert and in no acute distress. Skin: Inspection of skin and subcutaneous tissue: Skin color was normal with no hyperpigmented areas or violaceous striae over the chest and abdomen. Inspection of Facial and Body Hair: Normal. Eyes Conjunctiva and lids: Normal. Pupils were equal in size, round, reactive to light (PERRL) with normal accommodation and extraocular movements intact (EOMI). Inspection of globes: There was no exopthalmos. The globes were soft to palpation. Neck Enlarged thyroid gland, one small palpable Left thyroid nodule. Pulmonary Auscultation of lungs: Clear bilateral breath sounds. Cardiovascular Auscultation of heart: Heart rate and rhythm were normal. Normal S1 and S2, no gallops, no murmurs and no pericardial rub. Musculoskeletal Muscle strength/tone: Normal. No proximal muscle weakness was detected. Neurologic - Mild delay in relaxation phase. Diagnoses/Problems Hyperthyroidism (242.90) (E05.90) Provider ImpressionsMs. 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 --Decrease Methimazole 2.5 mg to 5 times weekly instead of dailyWill Check TSH and FT4 in 6 weeks-Vitamin D deficiencyContinue vitamin D 2000 daily-GERDContinue PPI 40 mg dailyPatient was advised to take Tums RTC in 6 months and labs in 6 weeksPatient seen, examined and discussed with Dr. Nolasco Attending NoteAttestation: I saw and evaluated the patient. I personally obtained the dubois and critical portions of the history and physical exam or was physically present for dubois and critical portions performed by the attendee. I reviewed the attendee's documentation and discussed the patient with the attendee. I agree with the attendee's medical decision making as documented on the attendee's note. Signatures Electronically signed by : Abhijeet Gifford MD,; Sep 16 2018 11:54PM EST (Author) Electronically signed by : Marcia Nolasco MD; Sep 17 2018 7:59AM EST (Author) Normal [facility] BASIC METABOLIC PANELon 05-2 Anion gap molar conc 13 mmol/L Normal 10 - 20 [facility] Comment on above: Performed By: #### B MP ####[facility] [place] [address] Calcium mass conc 9.5 mg/dL Normal 8.6 - 10.6 [facility] Comment on above: Performed By: #### B MP ####[facility] [place] [address] Chloride molar conc 107 mmol/L Normal 98 - 107 [facility] Comment on above: Performed By: #### B MP ####[facility] [place] [address] Creatinine mass conc 0.81 mg/dL Normal 0.50 - 1.05 [facility] Comment on above: Performed By: #### B MP ####[facility] [place] [address] GFR- AM. >60 Normal >60 [facility] Comment on above: Result Comment: CALC ULATIONS OF ESTIMATED GFR ARE PERFORMED USING THE MDRD STUDY EQUATION FOR THE IDMS-TRACEABLE CREATININE METHODS. CLIN CHEM 2007;53:766-72 Performed By: #### B MP ####[facility] [place] [address] GFR-NON AM. >60 Normal >60 [facility] Comment on above: Performed By: #### B MP ####[facility] [place] [address] Glucose mass conc 96 mg/dL Normal 74 - 99 [facility] Comment on above: Performed By: #### B MP ####[facility] [place] [address] HCO3 molar conc (Bld) 26 mmol/L Normal 21 - 32 [facility] Comment on above: Performed By: #### B MP ####[facility] [place] [address] Potassium molar conc 4.0 mmol/L Normal 3.5 - 5.3 [facility] Comment on above: Performed By: #### B MP ####[facility] [place] [address] Sodium molar conc 142 mmol/L Normal 136 - 145 [facility] Comment on above: Performed By: #### B MP ####[facility] [place] [address] Urea nitrogen mass conc 15 mg/dL Normal 6 - 23 [facility] Comment on above: Performed By: #### B MP ####[facility] [place] [address] CBCon 02-03-2018 Erythrocyte distribution width Ratio (RBC) Canceled Normal [facility] Comment on above: Order Comment: TEST CBC WAS CANCELLED, 02/02/2018 04:07 ?Cancel Reason: Discontinued. Performed By: #### C BC ####[facility] [place] [address] Hematocrit Volume Fraction (Bld) Canceled Normal [facility] Comment on above: Order Comment: TEST CBC WAS CANCELLED, 02/02/2018 04:07 ?Cancel Reason: Discontinued. Performed By: #### C BC ####[facility] [place] [address] Hemoglobin mass conc (Bld) Canceled Normal [facility] Comment on above: Order Comment: TEST CBC WAS CANCELLED, 02/02/2018 04:07 ?Cancel Reason: Discontinued. Performed By: #### C BC ####[facility] [place] [address] MCHC mass conc (RBC) Canceled Normal [facility] Comment on above: Order Comment: TEST CBC WAS CANCELLED, 02/02/2018 04:07 ?Cancel Reason: Discontinued. Performed By: #### C BC ####[facility] [place] [address] MCV Entitic volume (RBC) Canceled Normal [facility] Comment on above: Order Comment: TEST CBC WAS CANCELLED, 02/02/2018 04:07 ?Cancel Reason: Discontinued. Performed By: #### C BC ####[facility] [place] [address] Nucleated RBC/100 WBC Ratio (Bld) Canceled Normal [facility] Comment on above: Order Comment: TEST CBC WAS CANCELLED, 02/02/2018 04:07 ?Cancel Reason: Discontinued. Performed By: #### C BC ####[facility] [place] [address] Platelets #/vol (Bld) Canceled Normal [facility] Comment on above: Order Comment: TEST CBC WAS CANCELLED, 02/02/2018 04:07 ?Cancel Reason: Discontinued. Performed By: #### C BC ####[facility] [place] [address] RBC #/vol (Bld) Canceled Normal [facility] Comment on above: Order Comment: TEST CBC WAS CANCELLED, 02/02/2018 04:07 ?Cancel Reason: Discontinued. Performed By: #### C BC ####[facility] [place] [address] WBC #/vol (Bld) Canceled Normal [facility] Comment on above: Order Comment: TEST CBC WAS CANCELLED, 02/02/2018 04:07 ?Cancel Reason: Discontinued. Performed By: #### C BC ####[facility] [place] [address] Daily Progress Note-EPon Protein mass conc Service: EP Subjective Data: EM DANIEL is a 62 year old Female who is Hospital Day # 4. Additional Information: Pt examined at 8:20AM and tele reviewed. Feels well. Denies CP/dyspnea/LH/palps. Objective Data: Objective Information: T P R BP SpO2 Value 36.6 70 18 112/78 95% Date/Time 02/03 8:00 02/03 8:00 02/03 8:00 02/03 8:00 02/03 8:00 Range (35.6C - 36.6C ) (65 - 71 ) (18 - 18 ) (104 - 120 )/ (66 - 79 ) (95% - 97% ) Tele reviewed: AP 70s, rare PVC, no runs EKG post 5th dose 02/02/18 23:12--AP 70 bpm, LBBB, QT 500ms/QTc 545ms by Bazett Physical Exam: Constitutional: A+O x 3, no distress Eyes: Anicteric ENMT: mucous membranes moist, no apparent injury, no lesions seen Head/Neck: NC/AT Respiratory/Thorax: CTAB Cardiovascular: RRR, crisp mech click L pectoral site healed, no evidence of infx or erosion Gastrointestinal: soft, NT/ND +bs Extremities: no LE edema Lymphatic: No significant lymphadenopathy Psychological: Appropriate speech and affect. Skin: Warm and dry Medication: Medications: Continuous Medications ----- No continuous medications are active Scheduled Medications ----- 1. Aspirin Chewable: 81 mg Oral Daily 2. Dofetilide: 250 microgram(s) Oral Every 12 Hours 3. Furosemide: 40 mg Oral Daily 4. methIMAzole: 2.5 mg Oral Every 24 Hours 5. Metoprolol Tartrate: 100 mg Oral Every 12 Hours 6. Pantoprazole: 40 mg Oral Daily 7. Warfarin: 7.5 mg Oral Daily PRN Medications ----- 1. Acetaminophen: 650 mg Oral Every 4 Hours Recent Lab Results: Results: I have reviewed these laboratory results: Basic Metabolic Panel Trending View Result 03-Feb-2018 04:51:00 02-Feb-2018 04:07:00 Glucose, Serum 96 98 NA 142 143 K 4.0 3.8 CL 107 109 H Bicarbonate, Serum 26 21 Anion Gap, Serum 13 17 BUN 15 16 CREAT 0.81 0.78 GFR-Non >60 >60 GFR- >60 >60 Calcium, Serum 9.5 9.1 PT + INR, Plasma Trending View Result 03-Feb-2018 04:51:00 02-Feb-2018 04:07:00 Prothrombin Time, Plasma 30.1 H 30.0 H International Normalized Ratio, Plasma 2.7 H 2.7 H Magnesium, Serum Trending View Result 03-Feb-2018 04:51:00 02-Feb-2018 04:07:00 Magnesium, Serum 2.13 2.10 I have reviewed these laboratory results: Basic Metabolic Panel [Drawn 03-Feb-2018 04:51:00], PT + INR, Plasma [Drawn 03-Feb-2018 04:51:00]. Radiology Results: Results: Conclusion: CONCLUSIONS: 1. The left ventricular systolic function is mildly decreased with a 45-50% estimated ejection fraction. 2. Abnormal septal motion consistent with RV pacemaker. 3. Spectral Doppler shows an abnormal pattern of left ventricular diastolic filling. 4. There is mild asymmetric left ventricular hypertrophy. 5. The left atrium is severely dilated. 6. There is a bileaflet mitral valve prosthesis. 7. There is a normally functioning mitral valve prosthesis. 8. Mildly elevated RVSP. 9. A bubble study shows that an intrapulmonary shunting is present. QUANTITATIVE DATA SUMMARY: 2D MEASUREMENTS: Normal Ranges: RVIDd:2.03 cm (0.9-3.6cm) IVSd: 1.34 cm (0.6-1.1cm) LVPWd: 1.17 cm (0.6-1.1cm) LVIDd: 4.60 cm (3.9-5.9cm) LVIDs: 3.85 cm LV Mass Index: 117.6 g/m2 LV % FS 16.1 % LA VOLUME: Normal Ranges: LA Vol A2C: 103.4 ml LA Vol Index A2C: 55.5 ml/m2 LA Area A2C: 27.9 cm2 LA [place] A2C: 6.4 cm LA Vol A2C: 98.4 ml RA VOLUME BY A/L METHOD: Normal Ranges: RA Vol A4C: 32.4 ml (8.3-19.5ml) RA Vol Index A4C: 17.4 ml/m2 RA Area A4C: 12.2 cm2 RA [place] A4C: 3.9 cm M-MODE MEASUREMENTS: Normal Ranges: LAs: 5.85 cm (2.7-4.0cm) AORTA MEASUREMENTS: Normal Ranges: Asc Ao, d: 2.70 cm (2.1-3.4cm) LV SYSTOLIC FUNCTION BY 2D PLANIMETRY (MOD): Normal Ranges: EF-A4C View: 54.5 % (>55%) EF-A2C View: 43.5 % LV DIASTOLIC FUNCTION: Normal Ranges: MV Peak E: 1.33 m/s (0.7-1.2 m/s) MV Peak A: 0.44 m/s (0.42-0.7 m/s) E/A Ratio: 3.04 (1.0-2.2) MV lateral e' 0.08 m/s MV medial e' 0.04 m/s MITRAL VALVE: Normal Ranges: MV Vmax: 1.40 m/s (<1.3m/s) MV peak P.8 mmHg (<5mmHg) MV mean P.7 mmHg (<48mmHg) MV VTI: 25.91 cm (10-13cm) MV DT: 248 msec (150-240msec) AORTIC VALVE: Normal Ranges: AoV Vmax: 1.27 m/s (<1.7m/s) AoV Peak P.5 mmHg (<20mmHg) LVOT Max Flower: 0.91 m/s (<1.1m/s) LVOT VTI: 15.25 cm LVOT Diameter: 1.93 cm (1.8-2.4cm) AoV Area,Vmax: 2.10 cm2 (2.5-4.5cm2) RIGHT VENTRICLE: RV 1 3.4 cm RV 2 2.0 cm RV 3 5.1 cm TAPSE: 19.0 mm RV s' 0.05 m/s TRICUSPID VALVE/RVSP: Normal Ranges: Peak TR Velocity: 2.94 m/s RV Syst Pressure: 37.6 (< 30mmHg) IVC Diam: 1.20 cm PULMONIC VALVE: Normal Ranges: PV Accel Time: 88 msec (>120ms) PV Max Flower: 1.0 m/s (0.6-0.9m/s) PV Max P.7 mmHg AORTA: Asc Ao Diam 2.66 cm Echocardiogram [Oct 18 2017 4:33PM] Assessment and Plan: Additional Dx: Persistent atrial fibrillation: Entered Date: 01-Feb-2018 11:40 Atrial flutter: Entered Date: 03-Dec-2017 11:09 Transient alteration of awareness: Entered Date: 22-Oct-2017 14:15 Stroke: Entered Date: 17-Oct-2017 13:38 Persistent atrial fibrillation: Entered Date: 15-Oct-2017 18:12 Chronic diastolic heart failure: Entered Date: 31-Aug-2017 15:25 Hypertrophic cardiomyopathy: Entered Date: 24-Jun-2017 16:41 Subtherapeutic anticoagulation: Entered Date: 24-May-2016 09:41 Anticoagulation management encounter: Entered Date: 24-May-2016 09:41 Hyperthyroidism: Entered Date: 04-May-2016 20:17 Hypertension: Entered Date: 04-May-2016 20:17 Gastroesophageal reflux disease: Entered Date: 04-May-2016 20:16 Atrial fibrillation: Entered Date: 02-May-2016 15:24 Hypovolemia: Entered Date: 01-May-2016 15:41 Postoperative anemia due to acute blood loss: Entered Date: 01-May-2016 15:40 Postoperative cardiogenic shock: Entered Date: 01-May-2016 15:40 Status post mitral valve repair: Entered Date: 01-May-2016 15:40 Mitral regurgitation: Entered Date: 01-May-2016 15:04 Mitral valve insufficiency: Entered Date: 01-May-2016 15:04 Medical History: A-fib: Entered Date: 28-May-2017 13:30 Pleural effusion on right: Entered Date: 15-May-2016 16:58 Surg History: Encounter for cardioversion procedure: Onset Date: 07-Dec-2017, Entered Date: 07-Dec-2017 13:44 Assessment: -Recurrent symptomatic parox atrial arrhythmia -mild acute systolic/diastolic HF (/wtBNP up, small pleural eff on CXR) -chronic IVCD/LBBB -AF s/p PVI -Atyp AFL s/p RFA -HCM, EF 45-50% 10/31, s/p ICD ', s/p septal myomyectomy/PVI/SAWYER amputation/unroofing for myocard bridge 04/28 -Valvular dz s/p mech MVR 04/28, on chronic coumadin (goal INR 2.5-3.5) -TIA 10/31 in setting of INR 1.3 -HTN -GERD -Hyperthyroid, on tapazole -OA RECS: Pt was seen by Dr Brady today, EKGs reviewed. Will review EKG post 6th dose. -Cont Tikosyn 250mcg q12h (dose decreased as of 02/01 PM due to QT prolongation) -cont coumadin -Consider daily KCL supplement (K 3.4 on admission and has needed repletion every day except today) -note pt stopped Juanito's Wort prior to admit due to potential drug-supplement interaction -anticipate dc home from EP standpoint today if QTc remains stable post 6th dose -Called in 7-day supply Tikosyn to [facility] pharmacy and Rx to pt's local pharmacy in [place] (she plans to travel back to [place] tomorrow) -F/u: EKG by PCP in 1 month and fax to Dr Guy's office (fx [phone]), and pt will call pathology secretary ([phone]) when she knows her travel schedule to [place] this summer for f/u with Dr Guy in ~3 months (pt declines to see a wood coater or EP in [place]) -d/w primary team (ADEBAYO De León PA-C) RONAL Craft, ANDREIA, [facility] Cardiac Electrophysiology Personal pgr [phone] () EP consult pgr: [phone] Signature/Cosignature/Attes tation: Attending Only - Shared Visit with Advanced Practice Provider This is a shared visit. I have reviewed the Advanced Practice Provider?s encounter note, approve the Advanced Practice Provider?s documentation, and provide the following additional information from my personal encounter. Comments/ Additional Findings This is a shared visit. Both the PA Michael Francis and I have had a face to face encounter with Em Daniel today. I have reviewed the encounter note, approve the PA's documentation and provide the following additional information from my personal encounter with Em Daniel. s/p 6th dose of Tikosyn. QTc 540 ms but with LBBB morphology and QRS width of 150 ms. In addition, she does have an ICD hence protected. We will dc home today with follow up with Dr Guy. Electronic Signatures: Anthony Brady) (Signed 03-Feb-2018 14:33) Authored: Objective Data, Assessment and Plan, Signature/Cosignature/Attes tation Co-Signer: Service, Subjective Data, Objective Data, Assessment and Plan Michael Thurston (PAC) (Signed 03-Feb-2018 09:43) Authored: Service, Subjective Data, Objective Data, Assessment and Plan Last Updated: 03-Feb-2018 14:33 by Anthony Brady) Normal [facility] MAGNESIUMon 02-03-2018 Magnesium mass conc 2.13 mg/dL Normal 1.60 - 2.40 [facility] Comment on above: Performed By: #### M G ####[id number] [place] [address] PT/INRon 02-03-2018 INR Coag RelTime (PPP) 2.7 {INR} High 0.9 - 1.1 [facility] Comment on above: Performed By: #### P TINR ####[facility] [place] [address] Prothrombin time (PT) Coag time (PPP) 30.1 s High 9.8 - 12.7 [facility] Comment on above: Performed By: #### P TINR ####[facility] [place] [address] BASIC METABOLIC PANELon 05-2 Anion gap molar conc 17 mmol/L Normal 10 - 20 [facility] Comment on above: Performed By: #### C BC #### [facility] [address] [place] [address] Calcium mass conc 9.1 mg/dL Normal 8.6 - 10.6 [facility] Comment on above: Performed By: #### C BC #### [facility] [address] [place] [address] Chloride molar conc 109 mmol/L High 98 - 107 [facility] Comment on above: Performed By: #### C BC #### [facility] [address] [place] [address] Creatinine mass conc 0.78 mg/dL Normal 0.50 - 1.05 [facility] Comment on above: Performed By: #### C BC #### [facility] [address] [place] [address] GFR- AM. >60 Normal >60 [facility] Comment on above: Result Comment: CALC ULATIONS OF ESTIMATED GFR ARE PERFORMED USING THE MDRD STUDY EQUATION FOR THE IDMS-TRACEABLE CREATININE METHODS. CLIN CHEM 2007;53:766-72 Performed By: #### C BC #### [facility] [address] [place] [address] GFR-NON AM. >60 Normal >60 [facility] Comment on above: Performed By: #### C BC #### [facility] [address] [place] [address] Glucose mass conc 98 mg/dL Normal 74 - 99 [facility] Comment on above: Performed By: #### C BC #### [facility] [address] [place] [address] HCO3 molar conc (Bld) 21 mmol/L Normal 21 - 32 [facility] Comment on above: Performed By: #### C BC #### [facility] [address] [place] [address] Potassium molar conc 3.8 mmol/L Normal 3.5 - 5.3 [facility] Comment on above: Performed By: #### C BC #### [facility] [address] [place] [address] Sodium molar conc 143 mmol/L Normal 136 - 145 [facility] Comment on above: Performed By: #### C BC #### [facility] [address] [place] [address] Urea nitrogen mass conc 16 mg/dL Normal 6 - 23 [facility] Comment on above: Performed By: #### C BC #### [facility] [address] [place] [address] CBCon 02-02-2018 Erythrocyte distribution width Ratio (RBC) 12.7 % Normal 11.5 - 14.5 [facility] Comment on above: Performed By: #### C BC #### [facility] [address] [place] [address] Hematocrit Volume Fraction (Bld) 35.4 % Low 36.0 - 46.0 [facility] Comment on above: Performed By: #### C BC #### [facility] [address] [place] [address] Hemoglobin mass conc (Bld) 12.0 g/dL Normal 12.0 - 16.0 [facility] Comment on above: Performed By: #### C BC #### [facility] [address] [place] [address] MCHC mass conc (RBC) 33.9 g/dL Normal 32.0 - 36.0 [facility] Comment on above: Performed By: #### C BC #### [facility] [address] [place] [address] MCV Entitic volume (RBC) 91 fL Normal 80 - 100 [facility] Comment on above: Performed By: #### C BC #### [facility] [address] [place] [address] Nucleated RBC/100 WBC Ratio (Bld) 0.0 /100 WBC Normal 0.0-0.0 [facility] Comment on above: Performed By: #### C BC #### [facility] [address] [place] [address] Platelets #/vol (Bld) 164 10*3/uL Normal 150 - 450 [facility] Comment on above: Performed By: #### C BC #### [facility] [address] [place] [address] RBC #/vol (Bld) 3.91 x10E12/L Low 4.00 - 5.20 [facility] Comment on above: Performed By: #### C BC #### [facility] [address] [place] [address] WBC #/vol (Bld) 5.3 10*3/uL Normal 4.4 - 11.3 [facility] Comment on above: Performed By: #### C BC #### [facility] [address] [place] [address] Clinical Event Note-EP / EKG reviewon 02-02-2018 Clinical Event Note-EP / EKG review Event: Topic: EP / EKG review Details: EKG post 4th dose (2nd of 250mcg) 02/02/18 12:13pm--AP 70s bpm, LBBB (QRSD 142ms), QT 500ms/QTc 533ms by Tomtt -Discussed EKG with Dr Guy>continue Tikosyn 250mcg q12h Anticipate dc home from EP standpoint tomorrow 02/03 if QTc remains stable post 6th dose RONAL Craft PALionC, [facility] Cardiac Electrophysiology Electronic Signatures: Michael Thurston (PAC) (Signed 02-Feb-2018 13:38) Authored: Event Last Updated: 02-Feb-2018 13:38 by Michael Thurston (PAC) Normal [facility] Daily Progress Note-Cardiolo gyon 02-02-2018 Protein mass conc Service: Cardiology Subjective Data: EM DANIEL is a 62 year old Female who is Hospital Day # 3. Additional Information: Pt feels OK Objective Data: Objective Information: T P R BP SpO2 Value 35.6 65 18 112/73 97% Date/Time 02/02 15:41 02/02 15:41 02/02 15:41 02/02 15:41 02/02 15:41 Range (35.6C - 36.6C ) (65 - 72 ) (18 - 18 ) (112 - 122 )/ (73 - 79 ) (93% - 99% ) Pain with Activity reported at 02/02 0:00: 0 Pain at Rest reported at 02/02 7:05: 0 Weights 02/02 2:54: Weight in kg (Weight (kg)) 74.5 02/02 2:54: Weight in lbs ((lbs)) 164.3 Physical Exam: Constitutional: well developed, well nourished in NAD Head/Neck: JVP at clavicle Respiratory/Thorax: CTAB Cardiovascular: Reg S1S2 + mitral click Gastrointestinal: soft, NT/ND, BS+ Extremities: no LE edema Neurological: no focal deficits Psychological: Appropriate mood and behavior Skin: warm and dry Medication: Medications: Continuous Medications ----- No continuous medications are active Scheduled Medications ----- 1. Aspirin Chewable: 81 mg Oral Daily 2. Dofetilide: 250 microgram(s) Oral Every 12 Hours 3. Furosemide: 40 mg Oral Daily 4. methIMAzole: 2.5 mg Oral Every 24 Hours 5. Metoprolol Tartrate: 100 mg Oral Every 12 Hours 6. Pantoprazole: 40 mg Oral Daily 7. Warfarin: 7.5 mg Oral Daily PRN Medications ----- 1. Acetaminophen: 650 mg Oral Every 4 Hours Assessment and Plan: Assessment: 62yo F with extensive card hx, including HCM s/p dual BSC ICD 2013(Alcides), s/p [facility], [facility], SAWYER amputation and unroofing for myocardial bridge by Dr Martinez 04/28, and AF/AFL previously on Sotalol, s/p PVI +RFA for left-sided AFL and mulitple CV, most recently 11/28 who is admitted electively for Tikosyn initiation. Atrial fibrillation/ Aflutter - s/p PVI + RFA, multiple CV, amputation of the left atrial appendage - AF 10/30 degenerating to VF w/ ICD shock - previously on sotatol - EP following for tikosyn initiation. QTc prolonged after 1st dose, thus 500mcg reduced to 250mcg. Tolerating with prolonged QTc 542 but stable. Cont 250mcg - presently a-paced - no ventricular ectopy by tele - ICD interrogation: 51% A-Fib burden, 4 episodes of NSVT - coumadin for a/c HCM - s/p dual chamber ICD 01/2014 - s/p septal myomectomy, PVI, SAWYER amputation, unroofing for myocardial bridge 04/28 - TTE 10/2017 EF 45-50%, mild asymmetric LVH, abnormal LV diastolic filling, LA sev dilated, delayed saline bubbles indicative of intrapulm shunting, reduced RV systolic fxn, normal functioning MV prosthesis, trace MR MR - s/p MVR 04/2016 - TTE 10/2017 [facility]. Lars bileaflet mitral valve prosthesis with a 29 mm reported size, trace MR - subtherapeutic INR on admission at 1.9, bridged with heparin. This am 2.7, heparin stopped - cont coumadin 7.5mg. Managed by PCP in [place], uses home monitoring system HTN - systolic 120's - cont current med Rx GERD - cont PPI Hyperthyroid - f/b endo as OP, euthyroid until 10/31 when hyperthyroid. Restarted on MMI - TSH pending - cont methimazole Disp - lives alone, independent - anticipate no home going needs - F/u appts to be arranged PCP: Gerry Abbasi (in [place]) CARDS: Avery EP: Brooks Seen and discussed with Dr. Varela Electronic Signatures: Marck Sosa (PA (PHYSICIAN)) (Signed 02-Feb-2018 16:08) Authored: Service, Subjective Data, Objective Data, Assessment and Plan, Signature/Cosignature/Attes Mitzi Mckeon) (Signed 04-Feb-2018 16:16) Co-Signer: Service, Subjective Data, Objective Data, Assessment and Plan, Signature/Cosignature/Attes tatkhris Last Updated: 04-Feb-2018 16:16 by Mitzi Varela) Normal [facility] Daily Progress Note-EPon Protein mass conc Service: EP Subjective Data: EM DANIEL is a 62 year old Female who is Hospital Day # 3. Additional Information: Pt examined at 9:15AM and tele reviewed. Feels well today States she lost 2 lbs and no longer any chest heaviness. Denies LH/palps. Objective Data: Objective Information: T P R BP SpO2 Value 35.7 71 18 114/73 96% Date/Time 02/02 8:00 02/02 8:00 02/02 8:00 02/02 8:00 02/02 8:00 Range (35.7C - 36.7C ) (69 - 72 ) (18 - 18 ) (105 - 122 )/ (68 - 78 ) (93% - 99% ) Pain with Activity reported at 02/02 0:00: 0 Pain at Rest reported at 02/02 0:00: 0 Tele reviewed: AP 70s, no ectopy EKG post 3rd dose (1st of 250mcg) 02/02/18 00:01--AP 70 bpm, IVCD/LBBB (QSRD 144ms), QT 500ms/QTc 545ms EKG post 4th dose: Physical Exam: Constitutional: A+O x 3, no distress Eyes: Anicteric Head/Neck: NC/AT Respiratory/Thorax: CTAB Cardiovascular: RRR, crisp mechanical click Gastrointestinal: soft, NT/ND +bs Extremities: no LE edema Psychological: Appropriate speech and affect. Skin: Warm and dry Medication: Medications: Continuous Medications ----- No continuous medications are active Scheduled Medications ----- 1. Aspirin Chewable: 81 mg Oral Daily 2. Dofetilide: 250 microgram(s) Oral Every 12 Hours 3. Furosemide: 40 mg Oral Daily 4. methIMAzole: 2.5 mg Oral Every 24 Hours 5. Metoprolol Tartrate: 100 mg Oral Every 12 Hours 6. Pantoprazole: 40 mg Oral Daily 7. Warfarin: 7.5 mg Oral Daily PRN Medications ----- 1. Acetaminophen: 650 mg Oral Every 4 Hours Recent Lab Results: Results: I have reviewed these laboratory results: Complete Blood Count Trending View Result 02-Feb-2018 04:08:00 01-Feb-2018 04:21:00 White Blood Cell Count 5.3 5.2 Nucleated Erythrocyte Count 0.0 0.0 Red Blood Cell Count 3.91 L 3.75 L HGB 12.0 11.4 L HCT 35.4 L 34.4 L MCV 91 92 MCHC 33.9 33.1 PLT 164 150 RDW-CV 12.7 12.9 Basic Metabolic Panel Trending View Result 02-Feb-2018 04:07:00 01-Feb-2018 04:14:00 Glucose, Serum 98 96 NA 143 141 K 3.8 4.1 CL 109 H 110 H Bicarbonate, Serum 21 23 Anion Gap, Serum 17 12 BUN 16 19 CREAT 0.78 0.75 GFR-Non >60 >60 GFR- >60 >60 Calcium, Serum 9.1 9.1 PT + INR, Plasma Trending View Result 02-Feb-2018 04:07:00 01-Feb-2018 04:14:00 Prothrombin Time, Plasma 30.0 H 26.9 H International Normalized Ratio, Plasma 2.7 H 2.4 H Magnesium, Serum Trending View Result 02-Feb-2018 04:07:00 01-Feb-2018 04:14:00 Magnesium, Serum 2.10 2.09 Thyroid Stimulating Hormone, Serum 01-Feb-2018 04:14:00 Result Value Thyroid Stimulating Hormone, Serum 0.97 Radiology Results: Results: Impression: 1. New small bibasilar pleural effusions and associated mild atelectasis. 2. Stable enlargement of cardiomediastinal silhouette with mild perihilar congestion. No sidney pulmonary edema seen. Xray Chest 2 View PA + Lateral [Feb 01 2018 8:37AM] Assessment and Plan: Assessment: -Recurrent symptomatic parox atrial arrhythmia -mild acute systolic/diastolic HF (/wtBNP up, small pleural eff on CXR) -chronic IVCD/LBBB -AF s/p PVI -Atyp AFL s/p RFA -HCM, EF 45-50% 10/31, s/p ICD '14, s/p septal myomyectomy/PVI/SAWYER amputation/unroofing for myocard bridge 04/28 -Valvular dz s/p mech MVR 04/28, on chronic coumadin (goal INR 2.5-3.5) -TIA 10/31 in setting of INR 1.3 -HTN -GERD -Hyperthyroid, on tapazole -OA RECS: Discussed EKG with Dr Guy>cont Tik 250mcg -Cont Tikosyn 250mcg q12h (dose decreased as of 02/01 PM due to QT prolongation) -Continuous tele -EKG 2 hrs post each dose Tik -Replete lytes PRN (K>4, Mg>2)--K repleted today -cont coumadin>IV heparin dc'd by team for INR 2.7 today -note pt stopped Juanito's Wort prior to admit due to potential drug-supplement interaction -anticipate dc home from EP standpoint tomorrow 02/03 if QTc remains stable post 6th dose -EP will call in 7-day supply Tikosyn to [facility] pharmacy and Rx to pt's local pharmacy in [place] -F/u: EKG by PCP in 1 month and fax to Dr Guy's office (fx [phone]), and pt will call pathology secretary ([phone]) when she knows her travel schedule to [place] this summer for f/u with Dr Guy in ~3 months (pt declines to see a wood coater or EP in [place]) -d/w primary team (CHUI-Kinsey Sosa PA-C) EP will follow with you. Please call if questions RONAL Craft PA-C, [facility] Cardiac Electrophysiology Personal pgr [phone] (Wed-) EP consult pgr: [phone] Electronic Signatures: Michael Thurston ([facility]) (Signed 02-Feb-2018 10:30) Authored: Service, Subjective Data, Objective Data, Assessment and Plan Oneyda Guy) (Signed 02-Feb-2018 10:41) Authored: Signature/Cosignature/Attes tation Co-Signer: Objective Data, Assessment and Plan Last Updated: 02-Feb-2018 10:41 by Oneyda Guy) Normal [facility] HEPARIN ASSAY,UFHon 05-23-20 18 HEPARIN ASSAY,UFH 0.6 IU/mL Normal [facility] Comment on above: Result Comment: The therapeutic reference range for UFH may be either 0.3-0.6 IU/mL or 0.3-0.7 IU/mL based on the clinical setting for anticoagulant therapy and the associated nomogram used. For heparin dosing guidelines based on clinical scenario and Heparin Assay results, please refer to local Pharmacy and the [facility] Guidelines for Anticoagulation therapy available on the [facility] intranet at: [email or web address] Performed By: #### C BC #### [facility] [address] [place] [address] MAGNESIUMon 02-02-2018 Magnesium mass conc 2.10 mg/dL Normal 1.60 - 2.40 [facility] Comment on above: Performed By: #### C BC #### [facility] [address] [place] [address] PT/INRon 02-02-2018 INR Coag RelTime (PPP) 2.7 {INR} High 0.9 - 1.1 [facility] Comment on above: Performed By: #### C BC #### [facility] [address] [place] [address] Prothrombin time (PT) Coag time (PPP) 30.0 s High 9.8 - 12.7 [facility] Comment on above: Performed By: #### C BC #### [facility] [address] [place] [address] BASIC METABOLIC PANELon 01-12 Anion gap molar conc 12 mmol/L Normal 10 - 20 [facility] Comment on above: Performed By: #### B MP ####[id number] [place] [address] Calcium mass conc 9.1 mg/dL Normal 8.6 - 10.6 [facility] Comment on above: Performed By: #### B MP ####[facility] [place] [address] Chloride molar conc 110 mmol/L High 98 - 107 [facility] Comment on above: Performed By: #### B MP ####[facility] [place] [address] Creatinine mass conc 0.75 mg/dL Normal 0.50 - 1.05 [facility] Comment on above: Performed By: #### B MP ####[facility] [place] [address] GFR- AM. >60 Normal >60 [facility] Comment on above: Result Comment: CALC ULATIONS OF ESTIMATED GFR ARE PERFORMED USING THE MDRD STUDY EQUATION FOR THE IDMS-TRACEABLE CREATININE METHODS. CLIN CHEM 2007;53:766-72 Performed By: #### B MP ####[facility] [place] [address] GFR-NON AM. >60 Normal >60 [facility] Comment on above: Performed By: #### B MP ####[facility] [place] [address] Glucose mass conc 96 mg/dL Normal 74 - 99 [facility] Comment on above: Performed By: #### B MP ####[facility] [place] [address] HCO3 molar conc (Bld) 23 mmol/L Normal 21 - 32 [facility] Comment on above: Performed By: #### B MP ####[facility] [place] [address] Potassium molar conc 4.1 mmol/L Normal 3.5 - 5.3 [facility] Comment on above: Performed By: #### B MP ####[facility] [place] [address] Sodium molar conc 141 mmol/L Normal 136 - 145 [facility] Comment on above: Performed By: #### B MP ####[facility] [place] [address] Urea nitrogen mass conc 19 mg/dL Normal 6 - 23 [facility] Comment on above: Performed By: #### B MP ####[facility] [place] [address] Anion gap molar conc 10 mmol/L Normal 10 - 20 [facility] Comment on above: Performed By: #### B MP #### [facility] [address] [place] [address] Calcium mass conc 8.9 mg/dL Normal 8.6 - 10.6 [facility] Comment on above: Performed By: #### B MP #### [facility] [address] [place] [address] Chloride molar conc 109 mmol/L High 98 - 107 [facility] Comment on above: Performed By: #### B MP #### [facility] [address] [place] [address] Creatinine mass conc 0.80 mg/dL Normal 0.50 - 1.05 [facility] Comment on above: Performed By: #### B MP #### [facility] [address] [place] [address] GFR- AM. >60 Normal >60 [facility] Comment on above: Result Comment: CALC ULATIONS OF ESTIMATED GFR ARE PERFORMED USING THE MDRD STUDY EQUATION FOR THE IDMS-TRACEABLE CREATININE METHODS. CLIN CHEM 2007;53:766-72 Performed By: #### B MP #### [facility] [address] [place] [address] GFR-NON AM. >60 Normal >60 [facility] Comment on above: Performed By: #### B MP #### [facility] [address] [place] [address] Glucose mass conc 97 mg/dL Normal 74 - 99 [facility] Comment on above: Performed By: #### B MP #### [facility] [address] [place] [address] HCO3 molar conc (Bld) 27 mmol/L Normal 21 - 32 [facility] Comment on above: Performed By: #### B MP #### [facility] [address] [place] [address] Potassium molar conc 4.0 mmol/L Normal 3.5 - 5.3 [facility] Comment on above: Performed By: #### B MP #### [facility] [address] [place] [address] Sodium molar conc 142 mmol/L Normal 136 - 145 [facility] Comment on above: Performed By: #### B MP #### [facility] [address] [place] [address] Urea nitrogen mass conc 23 mg/dL Normal 6 - 23 [facility] Comment on above: Performed By: #### B MP #### [facility] [address] [place] [address] CBCon 02-01-2018 Erythrocyte distribution width Ratio (RBC) 12.9 % Normal 11.5 - 14.5 [facility] Comment on above: Performed By: #### C BC ####[facility] [place] [address] Hematocrit Volume Fraction (Bld) 34.4 % Low 36.0 - 46.0 [facility] Comment on above: Performed By: #### C BC ####[facility] [place] [address] Hemoglobin mass conc (Bld) 11.4 g/dL Low 12.0 - 16.0 [facility] Comment on above: Performed By: #### C BC ####[facility] [place] [address] MCHC mass conc (RBC) 33.1 g/dL Normal 32.0 - 36.0 [facility] Comment on above: Performed By: #### C BC ####[facility] [place] [address] MCV Entitic volume (RBC) 92 fL Normal 80 - 100 [facility] Comment on above: Performed By: #### C BC ####[facility] [place] [address] Nucleated RBC/100 WBC Ratio (Bld) 0.0 /100 WBC Normal 0.0-0.0 [facility] Comment on above: Performed By: #### C BC ####[facility] [place] [address] Platelets #/vol (Bld) 150 10*3/uL Normal 150 - 450 [facility] Comment on above: Performed By: #### C BC ####[facility] [place] [address] RBC #/vol (Bld) 3.75 x10E12/L Low 4.00 - 5.20 [facility] Comment on above: Performed By: #### C BC ####[facility] [place] [address] WBC #/vol (Bld) 5.2 10*3/uL Normal 4.4 - 11.3 [facility] Comment on above: Performed By: #### C BC ####[id number] [place] [address] Clinical Event Note-EP / EKG reviewon 02-01-2018 Clinical Event Note-EP / EKG review Event: Topic: EP / EKG review Details: EKG post 2nd dose Tikosyn 02/01/18 11:57AM--AP 70 bpm(thus in SR), IVCD (QRSD 144ms), QT 520ms/QTc 560ms by Bazett Routine ICD interro by device RN: --underlying rhythm: SB 45 w/ intact AV conduction --Battery life: estimated 6.5 yrs -Atrial arrhy burden(since 10/13/17): 51% AT/AF -Vent arrhy: 4 logged NSVT episodes -lead measurements: stable -Pacing: AP 22%, PROCUREMENT CONSULTANT 18% -no programming changes made D/w Dr Guy and will decrease Tikosyn to 250mcg q12h starting tonight. (QTc permitted to go up to 550ms given baseline conduction defect) -Discussed above change w/ pt and HVI team (Kinsey Sosa PA-C) RONAL Craft PA-C, [facility] Cardiac Electrophysiology Electronic Signatures: Michael Thurston (PAC) (Signed 01-Feb-2018 13:29) Authored: Event Last Updated: 01-Feb-2018 13:29 by Michael Thurston (PAC) Normal [facility] Daily Progress Note-David john 02-01-2018 Protein mass conc Service: Cardiology Subjective Data: EM DANIEL is a 62 year old Female who is Hospital Day # 2. Additional Information: Pt feels OK Reports occasional palpitations and chest pressure Objective Data: Objective Information: T P R BP SpO2 Value 35.9 69 18 119/77 93% Date/Time 02/01 7:12 02/01 4:02/01 4:27 02/01 4:02/01 4:27 Range (35.9C - 36.5C ) (69 - 70 ) (18 - 18 ) (114 - 120 )/ (74 - 78 ) (93% - 98% ) Pain with Activity reported at 02/01 0:00: 0 Pain at Rest reported at 02/01 7:43: 0 Weights 02/01 4:: Weight in kg (Weight (kg)) 75.6 02/01 4:: Weight in lbs ((lbs)) 166.7 Physical Exam: Constitutional: well developed, well nourished in NAD Head/Neck: JVP at clavicle Respiratory/Thorax: CTAB Cardiovascular: Reg S1S2 + mitral click Gastrointestinal: soft, NT/ND, BS+ Extremities: no LE edema Neurological: no focal deficits Psychological: Appropriate mood and behavior Skin: warm and dry Medication: Medications: Continuous Medications ----- 1. Heparin 25,000 units/ D5W 250 mL Infusion: 250 mL IntraVenous Scheduled Medications ----- 1. Aspirin Chewable: 81 mg Oral Daily 2. Dofetilide: 500 microgram(s) Oral Every 12 Hours 3. Furosemide: 40 mg Oral Daily 4. methIMAzole: 2.5 mg Oral Every 24 Hours 5. Metoprolol Tartrate: 100 mg Oral Every 12 Hours 6. Pantoprazole: 40 mg Oral Daily 7. Warfarin: 7.5 mg Oral Daily PRN Medications ----- 1. Acetaminophen: 650 mg Oral Every 4 Hours Assessment and Plan: Assessment: 62yo F with extensive card hx, including HCM s/p dual BSC ICD 2013(Mcgrath), s/p [facility], [facility], SAWYER amputation and unroofing for myocardial bridge by Dr Martinez 04/28, and AF/AFL previously on Sotalol, s/p PVI +RFA for left-sided AFL and mulitple CV, most recently 11/28 who is admitted electively for Tikosyn initiation. Atrial fibrillation/ Aflutter - s/p PVI + RFA, multiple CV, amputation of the left atrial appendage - AF 10/30 degenerating to VF w/ ICD shock - previously on sotatol - EP following for tikosyn initiation, first dose last evening, QTc 523 - presently a-paced - coumadin for a/c, heparin bridge until INR > 2.5(goal 2.5-3.5) HCM - s/p dual chamber ICD 01/2014 - s/p septal myomectomy, PVI, SAWYER amputation, unroofing for myocardial bridge 04/28 - TTE 10/2017 EF 45-50%, mild asymmetric LVH, abnormal LV diastolic filling, LA sev dilated, delayed saline bubbles indicative of intrapulm shunting, reduced RV systolic fxn, normal functioning MV prosthesis, trace MR MR - s/p MVR 04/2016 - TTE 10/2017 [facility] Lars bileaflet mitral valve prosthesis with a 29 mm reported size, trace MR - subtherapeutic INR at 2.4 (1.9), bridge with heparin - cont coumadin 7.5mg. Managed by PCP in [place], uses home monitoring system HTN - systolic 110's - cont current med Rx GERD - cont PPI Hyperthyroid - f/b endo as OP, euthyroid until 10/31 when hyperthyroid. Restarted on MMI - TSH pending - cont methimazole Disp - lives alone, independent - anticipate no home going needs PCP: Gerry Abbasi (in [place]) CARDS: Avery EP: Brooks Seen and discussed with Dr. Varela Electronic Signatures: Marck Sosa (YENIFER (PHYSICIAN)) (Signed 01-Feb-2018 11:22) Authored: Service, Subjective Data, Objective Data, Assessment and Plan, Signature/Cosignature/Attes tation Mitzi Varela) (Signed 01-Feb-2018 12:54) Co-Signer: Service, Subjective Data, Objective Data, Assessment and Plan, Signature/Cosignature/Attes tation Last Updated: 01-Feb-2018 12:54 by Mitzi Varela) Normal [facility] Daily Progress Note-EPon Protein mass conc Service: EP Subjective Data: EM DANIEL is a 62 year old Female who is Hospital Day # 2. Additional Information: Pt examined at 8:10AM and tele reviewed. Up in chair. Denies CP/dyspnea/LH/palps. IV heparin was started yest for INR 1.9(goal 2.5-3.5 w/ mech MVR). 1st dose Tikosyn at 11pm yesterday due to need for K repletion. Objective Data: Objective Information: T P R BP SpO2 Value 35.9 69 18 119/77 93% Date/Time 02/01 7:12 02/01 4:27 02/01 4:27 02/01 4:27 02/01 4:27 Range (35.9C - 36.5C ) (69 - 70 ) (18 - 18 ) (114 - 120 )/ (74 - 78 ) (93% - 98% ) Pain with Activity reported at 02/01 0:00: 0 Pain at Rest reported at 02/01 7:43: 0 EKG post 1st dose Tik 02/01/18 0:56AM--AP 70 bpm, IVCD ([id number]), QT 480ms/QTc 523ms EKG post 2nd dose: Physical Exam: Constitutional: A+O x 3, no distress Eyes: Anicteric Head/Neck: NC/AT Respiratory/Thorax: CTAB, slightly dim R base Cardiovascular: RRR, crisp mech click Gastrointestinal: soft, NT/ND +bs Extremities: no LE edema Psychological: Appropriate speech and affect. Skin: Warm and dry Medication: Medications: Continuous Medications ----- 1. Heparin 25,000 units/ D5W 250 mL Infusion: 250 mL IntraVenous Scheduled Medications ----- 1. Aspirin Chewable: 81 mg Oral Daily 2. Dofetilide: 500 microgram(s) Oral Every 12 Hours 3. Furosemide: 40 mg Oral Daily 4. methIMAzole: 2.5 mg Oral Every 24 Hours 5. Metoprolol Tartrate: 100 mg Oral Every 12 Hours 6. Pantoprazole: 40 mg Oral Daily 7. Warfarin: 7.5 mg Oral Daily PRN Medications ----- 1. Acetaminophen: 650 mg Oral Every 4 Hours Recent Lab Results: Results: I have reviewed these laboratory results: Complete Blood Count Trending View Result 01-Feb-2018 04:21:00 31-Jan-2018 16:49:00 White Blood Cell Count 5.2 5.2 Nucleated Erythrocyte Count 0.0 0.0 Red Blood Cell Count 3.75 L 4.29 HGB 11.4 L 13.1 HCT 34.4 L 40.0 MCV 92 93 MCHC 33.1 32.8 PLT 150 192 RDW-CV 12.9 12.8 Basic Metabolic Panel Trending View Result 01-Feb-2018 04:14:00 31-Jan-2018 21:36:00 31-Jan-2018 16:49:00 Glucose, Serum 96 97 89 NA 141 142 141 K 4.1 4.0 3.4 L CL 110 H 109 H 105 Bicarbonate, Serum 23 27 30 Anion Gap, Serum 12 10 9 L BUN 19 23 20 CREAT 0.75 0.80 0.92 GFR-Non >60 >60 >60 GFR- >60 >60 >60 Calcium, Serum 9.1 8.9 9.5 PT + INR, Plasma Trending View Result 01-Feb-2018 04:14:00 31-Jan-2018 16:49:00 Prothrombin Time, Plasma 26.9 H 21.7 H International Normalized Ratio, Plasma 2.4 H 1.9 H Magnesium, Serum Trending View Result 01-Feb-2018 04:14:00 31-Jan-2018 21:36:00 31-Jan-2018 16:49:00 Magnesium, Serum 2.09 1.98 2.14 Brain Natriuretic Peptide 31-Jan-2018 16:49:00 Result Value Brain Natriuretic Peptide 500 H Radiology Results: Results: Impression: 1. New small bibasilar pleural effusions and associated mild atelectasis. 2. Stable enlargement of cardiomediastinal silhouette with mild perihilar congestion. No sidney pulmonary edema seen. Xray Chest 2 View PA + Lateral [Feb 01 2018 8:37AM] Assessment and Plan: Assessment: -Recurrent symptomatic parox atrial arrhythmia -mild acute systolic/diastolic HF (/wtBNP up, small pleural eff on CXR) -chronic IVCD/cLBBB -AF s/p PVI -Atyp AFL s/p RFA -HCM, EF 45-50% 10/31, s/p ICD ', s/p septal myomyectomy/PVI/SAWYER amputation/unroofing for myocard bridge 04/28 -Valvular dz s/p mech MVR 04/28, on chronic coumadin -TIA 10/31 in setting of INR 1.3 -HTN -GERD -Hyperthyroid, on tapazole -OA RECS: Discussed EKG w/Sparano-->cont Tikosyn 500mcg -Cont Tikosyn 500mcg q12h (CrCL was 79ml/min on admission) -Continuous tele -EKG 2 hrs post each dose Tik -Replete lytes PRN (K>4, Mg>2) -cont coumadin / IV hep til INR 2.5 -note pt stopped Juanito's Wort prior to admit due to potential drug-supplement interaction -will get routine device interro today (I called) -d/w primary team (HVI) EP will follow with you. Please call if questions RONAL Craft, ANDREIA, [facility] Cardiac Electrophysiology [place] pgr [phone] (Wed-) EP consult pgr: [phone] Signature/Cosignature/Attes tation: Comments/ Additional Findings Patient presented in sinus rhythm and therefore ok to proceed with dofetilide despite INR <2. Goal INR 2.5-3.5 in light of mechanical valve. Please follow closely. Electronic Signatures for Addendum Section: Michael Thurston (PAC) (Signed Addendum 01-Feb-2018 13:22) Tele reviewed: AP/VS 70s bpm, rare PVC only Electronic Signatures: Michael Thurston (PAC) (Signed 01-Feb-2018 08:47) Authored: Service, Subjective Data, Objective Data, Assessment and Plan Oneyda Guy) (Signed 01-Feb-2018 09:21) Authored: Signature/Cosignature/Attes tation Co-Signer: Service, Subjective Data, Objective Data, Assessment and Plan Last Updated: 01-Feb-2018 13:22 by Michael Thurston ([facility]) Normal [facility] Discharge [id number] 02-01- 018 Protein mass conc Discharge Orders: Anticipated Discharge Date: ? Anticipated Discharge Date 03-Feb-2018 Problem List: Prelim Disch Dx: ? Hyperthyroidism: Catalog Name: Thyrotoxicosis, unspecified without thyrotoxic crisis or storm ? HTN (hypertension): Catalog Name: Essential (primary) hypertension ? Mitral regurgitation: Catalog Name: Nonrheumatic mitral (valve) insufficiency ? Hypertrophic cardiomyopathy: Catalog Name: Other hypertrophic cardiomyopathy ? Atrial fibrillation: Catalog Name: Unspecified atrial fibrillation Hospital Providers: Provider Role Provider Name ? Attending Mitzi Varela ? Primary DepGerry christian Activity: activity as tolerated. Additional Orders: ? Additional Instructions IF YOU MISS A DOSE OF TIKOSYN, DO NOT TRY TO MAKE UP THE DOSE. NEVER TAKE 2 DOSES AT THE SAME TIME. *You should have bloodwork to check kidney function every 3-6 months with your primary provider or primary wood coater while on Tikosyn. *DO NOT take any herbs or supplements without first discussing with your provider. *You must tell any provider that treats you that you are on Tikosyn (due to potential for drug-drug interactions). Keep an up-to-date medication list in your wallet (in addition to any list you keep in your phone). Call Provider If (Homegoing Patients): Any new concerning symptoms. Passing out. Hospital Course (Home Care/Gold Form): Hospital Course: ? Hospital Course: include significant abnormal lab values 62yo F with extensive card hx, including HCM s/p dual BSC ICD 2013(Mcgrath), s/p extensive septal myomectomy, mech MVR, PVI, SAWYER amputation and unroofing for myocardial bridge by Dr Martinez 04/28, and AF/AFL previously on Sotalol, s/p PVI +RFA for left-sided AFL and mulitple CV, most recently 11/28. Pt states ~ 1-2 week h/o palpitations associated with SOB/CP. Sx's worse with exertion. CP described as pressure across chest. No radiation/diaphoresis/N/V. + PND but denies any orthopnea. Given persistence of sx's, Dr Guy recommended Tikosyn initiation and pt presents for elective admission. Hospital Course: [facility] started on Tikosyn 500mcg every 12 hours and was maintained on continuous telemetry. EKGs were obtained two hours after each dose of Tikosyn for QTc monitoring. Magnesium and potassium levels were monitored throughout the hospitalization and were repleted as necessary. QTc was prolonged and dose reduced to 250cg with stabilization of QTc. Upon admission pt was noted to have subtherapeutic INR and bridged with Heparin g+ + until therapeutic INR achieved. ICD interrogation noted 51% A-Fib burden and 4 episodes of NSVT. Upon discharge, a 7-day Tikosyn supply from the outpt pharmacy was provided to pt, and another prescription was called into pt's local pharmacy. After review with Dr Guy, pt was deemed stable and appropriate for discharge. Pt was discharged in satisfactory condition and will f/u with Dr Guy in 4-6 weeks with EKG. Pt will need BMP q3-6 months with PCP or primary wood coater to evaluate renal function while on Tikosyn. Provider FINAL REVIEW of Orders: Final Review: ? Final Review of Medication Reconciliation and Orders Completed by PA Appointments: Follow-Up Appointment 01: ? Physician/Dept/Service Gerry Abbasi MD (primary physician) in [place] ? Reason for Referral EKG in 1 month post Tikosyn initiation ? Call to Schedule in 4 weeks ? Comments FAX EKG to Oneyda Guy MD at [phone]. Please arrange to have INR checked in coordination with Follow-Up Appointment 02: ? Physician/Dept/Service Oneyda Guy MD ? Reason for Referral Tikosyn follow-up ? Call to Schedule in 3 months (when back in [place]) ? Phone Number Secretary Ferrari: [phone] Electronic Signatures: Michael Thurston (PAC) (Signed 02-Feb-2018 13:33) Authored: Discharge Orders, Appointments Marck Sosa (YENIFER (PHYSICIAN)) (Signed 02-Feb-2018 14:52) Authored: Discharge Orders, Hospital Course (Home Care/Gold Form), Appointments, Gold Form - Fuel Conversion Technician Summary Eliza De León (PAC) (Signed 03-Feb-2018 11:54) Authored: Provider FINAL REVIEW of Orders Last Updated: 03-Feb-2018 11:54 by Eliza De León (PAC) Normal [facility] EMR ADDONon 02-01-2018 ADDON CONFIRMATION REQUEST REC'D Normal [facility] Comment on above: Performed By: #### E MRAD ####NO LOCATION NEEDED HEPARIN ASSAY,UFHon 02-02-20 18 HEPARIN ASSAY,UFH 0.4 IU/mL Normal [facility] Comment on above: Result Comment: The therapeutic reference range for UFH may be either 0.3-0.6 IU/mL or 0.3-0.7 IU/mL based on the clinical setting for anticoagulant therapy and the associated nomogram used. For heparin dosing guidelines based on clinical scenario and Heparin Assay results, please refer to local Pharmacy and [facility] Guidelines for Anticoagulation therapy available on the [facility] intranet at: [email or web address] [email or web address] [email or web address] elines_[email or web address].aspx Performed By: #### H AUF ####[facility] [place] [address] HEPARIN ASSAY,UFH 0.4 IU/mL Normal [facility] Comment on above: Result Comment: The therapeutic reference range for UFH may be either 0.3-0.6 IU/mL or 0.3-0.7 IU/mL based on the clinical setting for anticoagulant therapy and the associated nomogram used. For heparin dosing guidelines based on clinical scenario and Heparin Assay results, please refer to local Pharmacy and the [facility] Guidelines for Anticoagulation therapy available on the [facility] intranet at: [email or web address] [email or web address] Performed By: #### H AUF ####[facility] [place] [address] MAGNESIUMon 02-01-2018 Magnesium mass conc 2.09 mg/dL Normal 1.60 - 2.40 [facility] Comment on above: Performed By: #### M G ####[facility] [place] [address] Magnesium mass conc 1.98 mg/dL Normal 1.60 - 2.40 [facility] Comment on above: Performed By: #### M G #### [facility] [address] [place] [address] PT/INRon 02-01-2018 INR Coag RelTime (PPP) 2.4 {INR} High 0.9 - 1.1 [facility] Comment on above: Performed By: #### P TINR ####[facility] [place] [address] Prothrombin time (PT) Coag time (PPP) 26.9 s High 9.8 - 12.7 [facility] Comment on above: Performed By: #### P TINR ####[facility] [place] [address] TSHon 02-01-2018 Thyrotropin Qn 0.97 m[IU]/L Normal 0.44 - 3.98 [facility] Comment on above: Result Comment: TSH testing is performed using different testing methodology at [facility] than at other [facility]. Direct result comparisons should only be made within the same method. . Patients receiving more than 5 mg/day of biotin may have interference in test results. A sample should be taken no sooner than eight hours after previous dose. Contact [phone] for additional information. Performed By: #### C BC #### [facility] [address] [place] [address] Admission Risk Screen - Adul ton 01-31-2018 Admission Risk Screen - Adult Allergies: Allergies: ? No Known Allergies: Patient Verification: ? New W ID Band Applied in my Department no ? Type of ID Patient is Wearing W wristband, but not applied here ? Patient Transferred from Other Facility ([facility], [facility],etc) no ? Patient Identity Verified By patient ? ID Band FULL Name, include Middle, spelling matches patient's ID used for verification yes ? ID Band Matches Patient ID used for Verfication yes ? ID Band MRN Matches EMR MRN yes Advance Directive: ? Advance Directive Medical no ? Advance Directive Information Given HAS INFORMATION ? Advance Directive Mental Health not applicable Falls Screen: Type of Assessment admission Risk for Injury Associated with Fall coagulation ? blood thinners (Coumadin, heparin gtt), coagulopathy Fall Risk Conclusion moderate falls risk with risk for associated injury [place] Safety Interventions WDL *orient to call system *instruct to call for assistance before getting out of bed *non-slip footwear when patient is out of bed *call long in reach *personal items and telephone in reach *physically safe environment (no spills or clutter) *bed in lowest position with wheels locked *appropriate side rails in place *room/bathroom lighting operational, light cord in reach *appropriate signage on door Fall and Injury Risk Interventions educate pt/family Family Violence Screen: ? Are you or have you been threatened or abused physically, emotionally, or sexually by anyone? no ? Do you feel UNSAFE going back to the place where you are living? no ? Clinical assessment: Are there any apparent signs of injuries/behaviors that could be related to abuse/neglect no ? Social Service Consult for abuse/neglect needed this visit? no Functional screen: ? Functional Screen: In the recent/past 2-4 weeks, patient or family have noticed no issues that require a rehabilitation consult at this time Learning Assessment (Patient): ? Patient is Able to be Assessed for Learning yes ? Factors Influencing Readiness to Learn interest in learning ? Factors that Impact Ability to Learn none ? Devices/Methods Used to Communicate glasses ? Learning Preferences written material; verbal instruction ? Cultural Considerations none ? Developmental Considerations none ? Congregational Considerations none Learning Assessment (Other Learner): ? Other learner available no Suicide/Depression Screen: ? During the past month, have you often been bothered by feeling down, depressed or hopeless? no ? During the past month, have you often had little interest or pleasure in doing things? no ? Have you had any thoughts of harming yourself? no ? Have you had any thoughts of harming anyone else? no ? Suicide/Depression Comment HAS DEPRESSION ALBER SEEING A THERAPIST Adult Nutrition Screen: ? Have you recently lost weight without trying no ? Have you been eating poorly because of a decreased appetite no ? MST Score 0 ? Risk MST = 0 or 1 Not at risk. Eating well with little or no weight loss ? Nutrition Consult needed this visit? no ? Can Patient Participate in Room Service? yes ? Patient requires Paper Dishes/Plastic Utensils no Pain Screen: ? Pain Scale numerical 0-10 ? Pain Scale Education teaching provided ? Current Pain Level 0 = None ? Acceptable Pain Level 8 = Severe ? Expression of Pain (nonverbal) none ? Chronic Pain yes ? Chronic Pain Comment OSTEO ARTHRITIS HANDS FEET BACK Spiritual Screen: ? Are there any cultural, spiritual, congregational practices/values/needs that are important for us to know? no ? Do you want a visit/item from Pastoral Care? no ? Would you like your Returner/Cook Helper notified? no CAGE: Is this an injured patient at a Trauma Center ([facility] / [place]): no Vaccinations: Vaccination - Influenza Vaccination Screen: ? Is it flu season? (between and ) No Vaccination - Pneumonia Vaccination Screen: ? Patient has received a previous pneumonia vaccine: no/unknown... ? Immunocompetent persons with underlying chronic conditions or reside in predatory animal exterminator care facilities chronic heart disease (excluding hypertension) ? Pneumonia vaccine NOT indicated due to: patient/caregiver refusal at this time Emeterio: Skin - Emeterio Scale: ? Emeterio: Sensory Perception (response to environment) (4) no impairment ? Emeterio: Moisture (degree skin exposed to moisture) (4) rarely moist ? Emeterio: Activity (ability to walk) (4) walks frequently ? Emeterio: Mobility (amount/control of body movement) (3) slightly limited ? Emeterio: Nutrition (quality of food intake) (3) adequate ? Emeterio: Friction and Shear (3) no apparent problem ? Emeterio: Score 21 Significant Indicatiors: Significant Indicators: Complete Pressure Injury: Pressure Injury Present on Admission no PER PT Electronic Signatures: Lisa Hernandez ([facility]) (Signed 31-Jan-2018 16:59) Authored: Admission Risk Screens, Vaccinations, Emeterio, Pressure Injury Last Updated: 31-Jan-2018 16:59 by Lisa Hernandez ([facility]) Normal [facility] BASIC METABOLIC PANELon 05-2 Anion gap molar conc 9 mmol/L Low 10 - 20 [facility] Comment on above: Performed By: #### B MP #### [facility] [address] [place] [address] Calcium mass conc 9.5 mg/dL Normal 8.6 - 10.6 [facility] Comment on above: Performed By: #### B MP #### [facility] [address] [place] [address] Chloride molar conc 105 mmol/L Normal 98 - 107 [facility] Comment on above: Performed By: #### B MP #### [facility] [address] [place] [address] Creatinine mass conc 0.92 mg/dL Normal 0.50 - 1.05 [facility] Comment on above: Performed By: #### B MP #### [facility] [address] [place] [address] GFR- AM. >60 Normal >60 [facility] Comment on above: Result Comment: CALC ULATIONS OF ESTIMATED GFR ARE PERFORMED USING THE MDRD STUDY EQUATION FOR THE IDMS-TRACEABLE CREATININE METHODS. CLIN CHEM 2007;53:766-72 Performed By: #### B MP #### [facility] [address] [place] [address] GFR-NON AM. >60 Normal >60 [facility] Comment on above: Performed By: #### B MP #### [facility] [address] [place] [address] Glucose mass conc 89 mg/dL Normal 74 - 99 [facility] Comment on above: Performed By: #### B MP #### [facility] [address] [place] [address] HCO3 molar conc (Bld) 30 mmol/L Normal 21 - 32 [facility] Comment on above: Performed By: #### B MP #### [facility] [address] [place] [address] Potassium molar conc 3.4 mmol/L Low 3.5 - 5.3 [facility] Comment on above: Performed By: #### B MP #### [facility] [address] [place] [address] Sodium molar conc 141 mmol/L Normal 136 - 145 [facility] Comment on above: Performed By: #### B MP #### [facility] [address] [place] [address] Urea nitrogen mass conc 20 mg/dL Normal 6 - 23 [facility] Comment on above: Performed By: #### B MP #### [facility] [address] [place] [address] BNPon 01-31-2018 Natriuretic peptide B mass conc (Bld) 500 pg/mL High 0 - 99 [facility] Comment on above: Result Comment: . <1 00 pg/mL - Heart failure unlikely 100-299 pg/mL - Intermediate probability of acute heart . failure exacerbation. Correlate with clinical . context and patient history. >=300 pg/mL - Heart Failure likely. Correlate with clinical . context and patient history. BNP testing is performed using different testing methodology at [facility] than at [facility]. Direct result comparisons should only be made within the same method. Performed By: #### B NP2 #### [facility] [address] [place] [address] CBCon 01-31-2018 Erythrocyte distribution width Ratio (RBC) 12.8 % Normal 11.5 - 14.5 [facility] Comment on above: Performed By: #### C BC #### [facility] [address] [place] [address] Hematocrit Volume Fraction (Bld) 40.0 % Normal 36.0 - 46.0 [facility] Comment on above: Performed By: #### C BC #### [facility] [address] [place] [address] Hemoglobin mass conc (Bld) 13.1 g/dL Normal 12.0 - 16.0 [facility] Comment on above: Performed By: #### C BC #### [facility] [address] [place] [address] MCHC mass conc (RBC) 32.8 g/dL Normal 32.0 - 36.0 [facility] Comment on above: Performed By: #### C BC #### [facility] [address] [place] [address] MCV Entitic volume (RBC) 93 fL Normal 80 - 100 [facility] Comment on above: Performed By: #### C BC #### [facility] [address] [place] [address] Nucleated RBC/100 WBC Ratio (Bld) 0.0 /100 WBC Normal 0.0-0.0 [facility] Comment on above: Performed By: #### C BC #### [facility] [address] [place] [address] Platelets #/vol (Bld) 192 10*3/uL Normal 150 - 450 [facility] Comment on above: Performed By: #### C BC #### [facility] [address] [place] [address] RBC #/vol (Bld) 4.29 x10E12/L Normal 4.00 - 5.20 [facility] Comment on above: Performed By: #### C BC #### [facility] [address] [place] [address] WBC #/vol (Bld) 5.2 10*3/uL Normal 4.4 - 11.3 [facility] Comment on above: Performed By: #### C BC #### [facility] [address] [place] [address] Consulton 01-31-2018 Consult This report has been cancelled. Normal [facility] Consult-EPon 01-31-2018 Consult-EP Service: Service: EP Consult: Consult requested by (Attending Name): Avery Reason: recurrent symptomatic parox atrial arrhy History of Present Illness: HPI: PCP: Gerry Abbasi (in [place]) CARDS: Avery EP: Brooks 62yo F with extensive card hx, including HCM s/p dual BSC ICD 2013(Alcides), s/p extensive septal myomectomy, mech MVR, PVI, SAWYER amputation and unroofing for myocardial bridge by Dr Martinez 04/28, and AFAFL previously on Sotalol and s/p PVI +RFA for left-sided AFL and mulitple CV, most recently 11/28. Pt developed recurrent palps and knew she was back in AF vs AFL which lasted [address] Guy recommended Tikosyn initiation and pt presents for elective admission. Coumadin is managed by PCP in [place] and pt recently got a home INR monitor to do self-testing; goal INR is 2.5-3.5 due to [facility] MVR. INR was 2.5 on 01/27/18 (at [facility]). Pt has had less than 1 week of PND, LE edema, wt gain(wt reportedly 163lbs at endo visit on 01/20/18), and ALLEN walking <10 feet. Denies orthopnea. When in AF/AFL, feels constant chest fullness unrelated to activity. Denies syncope or ICD shocks. PMH/PSH: -HCM (confirmed w/ genetic testing) ---s/p dual C ICD 01/2014 (Dr Mcgrath) ---s/p septal myomectomy, PVI, SAWYER amputation, unroofing for myocardial bridge 04/28 c/b pleural effusion requiring tap -MR s/p [facility] MVR 04/28 -AF s/p RFA, s/p mult CV ---AF 10/30 degenerating to VF w/ ICD shock 2016 ---previously on Sotalol ---MICHAEL pre-CV 12/03/17: EF not well seen, sev LAE/NL RA, no SAWYER thrombus(SAWYER largely absent), decreased RV fxn/not well seen, [facility] MVR with mild MR, mild TR. -Atypical AFL s/p RFA -chronic IVCD/LBBB -Probable TIA 10/31 (INR was 1.3 earlier that week) -HTN -GERD -Hyperthyroidism -OA -Discectomy of cervical spine -Compression fracture of thoracic spine -Hysterectomy FH: reviewed and not pertinent to presenting problem SOC: lives alone, idependent ADLs, children live close by quit tob 82; 4-5 beers/week, denies ilicits rare caffeine, denies other stimulants ROS: Denies bleeding issues on coumadin. No current neuro sx. O/w all systems negative except as noted in HPI. Allergies: ? No Known Allergies: Objective: Objective Information: Baseline EKG 01/31/18 16:06--A pacing 70bpm, paced NANCY 230ms, cLBBB(QRSD 130ms), NSSTT changes lateral, QT 440ms/QTc 491ms Physical Exam: Constitutional: Well developed, awake/alert/oriented x3, no distress, alert and cooperative Head/Neck: NC/AT Respiratory/Thorax: diminished Right base Cardiovascular: RRR, crisp mech click L pectoral ICD site healed, no evidence of infx or erosion Gastrointestinal: soft, NT/ND, +BS Extremities: no LE edema Psychological: Appropriate speech and affect Skin: W+D Radiology Results: Results: Conclusion: CONCLUSIONS: 1. The left ventricular systolic function is not well visualized. 2. The left atrium is severely dilated. 3. There is a mechanical mitral valve prosthesis. 4. No left atrial thrombus. QUANTITATIVE DATA SUMMARY: Transesophageal Echo [Dec 03 2017 3:00PM] (pre-CV) Assessment: -Recurrent symptomatic parox atrial arrhythmia -chronic IVCD/cLBBB -AF s/p PVI -Atyp AFL s/p RFA -HCM s/p ICD , s/p septal myomyectomy/PVI/SAWYER amputation/unroofing for myocard bridge 04/28 -Valvular dz s/p mech MVR 04/28, on chronic coumadin -TIA 10/31 in setting of INR 1.3 HTN -GERD -Hyperthyroid, on tapazole -OA RECS: D/w Dr Guy>Tikosyn initiation -Will start Tikosyn once labs resulted / CrCL calculated -Continuous tele -EKG 2 hrs post each dose Tik -Replete lytes PRN (K>4, Mg>2) -cont coumadin -note pt stopped Juanito's Wort prior to admit due to potential drug-supplement interaction -will get device interro tomorrow -d/w primary team (HVI) Thanks, will follow with you. Call if questions RONAL Craft, PALionC, [facility] Cardiac [place]rophys[place] [phone] (Wed-) EP consult pgr: [phone] Electronic Signatures: Michael Thurston (PAC) (Signed 31-Jan-2018 17:32) Authored: Service, History of Present Illness, Allergies, Objective, Assessment/Recommendations Oneyda Guy) (Signed 01-Feb-2018 09:19) Authored: Signature/Cosignature/Attes tation Co-Signer: History of Present Illness, Objective, Assessment/Recommendations Last Updated: 01-Feb-2018 09:19 by Oneyda Guy) Normal [facility] Discharge Planning Noteon Discharge Planning Note Patient Learning: ? Factors that Impact Ability to Learn none(1) Other Factors: ? Functional Screen: In the recent/past 2-4 weeks, patient or family have noticed no issues that require a rehabilitation consult at this time(1) Discharge Planning: Discharge Plannin01/31/2018 1700 Discharge Planning Note. Patient is a direct admit for Tikosyn, a fib. She lives at home alone. Her daughter will take her home at time of discharge. No current home care. She has osteoarthritis, with minimum difficulty ambulating. Her contact number is [phone]. Her PCP is Elroy, seen in [facility]. No dietary restrictions. Lisa Hernandez RNC 02/03/18 1230 Discharge Planning Note: Pt discharged home with no home care. Pt verbalized understanding of discharge instructions, diet, activity, medications, and follow up appointments. IV removed, tip intact. Domitila Fowler RN Electronic Signatures: Domitila Fowler (RN) (Signed 03-Feb-2018 13:37) Authored: Discharge Planning Note Lisa Hernandez ([facility]) (Signed 31-Jan-2018 17:11) Authored: Discharge Planning Note Last Updated: 03-Feb-2018 13:37 by Domitila Fowler (RN) References: 1. Data Referenced From Admission Risk Screen - Adult 01/31/2018 4:52 PM Normal [facility] History and Physicalon 01-31 History and Physical History of Present Illness: Admission Reason: Tikosyn Loading HPI: 62yo F with extensive card hx, including HCM s/p dual BSC ICD 2013(Alcides), s/p extensive septal myomectomy, mech MVR, PVI, SAWYER amputation and unroofing for myocardial bridge by Dr Martinez 04/28, and AF/AFL previously on Sotalol, s/p PVI +RFA for left-sided AFL and mulitple CV, most recently 11/28. Pt states ~ 1-2 week h/o palpitations associated with SOB/CP. Sx's worse with exertion. CP described as pressure across chest. No radiation/diaphoresis/N/V. + PND but denies any orthopnea. Given persistence of sx's, Dr Guy recommended Tikosyn initiation and pt presents for elective admission. PMH/PSH: -HCM (confirmed w/ genetic testing) ---s/p dual BSC ICD 01/2014 (Dr Mcgrath) ---s/p septal myomectomy, PVI, SAWYER amputation, unroofing for myocardial bridge 04/28 c/b pleural effusion requiring tap -MR s/p [facility] MVR 04/28 -cLBBB -AF s/p RFA, s/p mult CV ---AF 10/30 degenerating to VF w/ ICD shock ---previously on Sotalol -Atypical AFL s/p RFA -Probable TIA 10/31 (INR was 1.3 earlier that week) -HTN -GERD -Hyperthyroidism -OA -Discectomy of cervical spine -Compression fracture of thoracic spine -Hysterectomy Comorbidities: ? Comorbid Conditions atrial fibrillation ? Type of Atrial Fibrillation Persistent Family History: Family History: reviewed and not pertinent to presenting problem Social History: Social History: Smoking Status former smoker Alcohol Use occasionally Drug Use denies Drug 2 Use denies Social History Lives alone, walks 3miles 5x/week Allergies: ? No Known Allergies: Review of Systems: Constitutional: NEGATIVE: Fever, Chills, Anorexia, Weight Loss, Malaise Eyes: NEGATIVE: Blurry Vision, Drainage, Diploplia, Redness, Vision Loss/ Change ENMT: NEGATIVE: Nasal Discharge, Nasal Congestion, Ear Pain, Mouth Pain, Throat Pain Respiratory: POSITIVE: Shortness of Breath; NEGATIVE: Dry Cough, Productive Cough, Hemoptysis, Wheezing Cardiac: POSITIVE: Chest Pain, Dyspnea on Exertion, Palpitations; NEGATIVE: Orthopnea, Syncope Gastrointestinal: NEGATIVE: Nausea, Vomiting, Diarrhea, Constipation, Abdominal Pain Genitourinary: NEGATIVE: Discharge, Dysuria, Flank Pain, Frequency, Hematuria Neurological: NEGATIVE: Dizziness, Confusion, Headache, Seizures, Syncope Skin: NEGATIVE: Mass, Pain, Pruritus, Rash, Ulcer Objective: Objective Information: T P R BP SpO2 Value 36.5 70 18 114/74 98% Date/Time 01/31 16:25 01/31 16:25 01/31 16:25 01/31 16:25 01/31 16:25 Range (36.5C - 36.5C ) (70 - 70 ) (18 - 18 ) (114 - 114 )/ (74 - 74 ) (98% - 98% ) Weights 01/31 18:00: Weight in kg (Weight (kg)) 75.4 01/31 18:00: Weight in lbs ((lbs)) 166.2 Physical Exam: Constitutional: well developed, well nourished in NAD Head/Neck: JVP at clavicle Respiratory/Thorax: CTAB Cardiovascular: Reg S1S2 + mitral click Gastrointestinal: soft, NT/ND, BS+ Extremities: no LE edema Neurological: no focal deficits Psychological: Appropriate mood and behavior Skin: warm and dry Medications: Medications: Continuous Medications ----- 1. Heparin 25,000 units/ D5W 250 mL Infusion: 250 mL IntraVenous Scheduled Medications ----- 1. Aspirin Chewable: 81 mg Oral Daily 2. Dofetilide: 500 microgram(s) Oral Once 3. Furosemide: 40 mg Oral Daily 4. methIMAzole: 2.5 mg Oral Every 24 Hours 5. Metoprolol Tartrate: 100 mg Oral Every 12 Hours 6. Pantoprazole: 40 mg Oral Daily 7. Potassium Chloride Extended Release: 40 mEq Oral Every 2 Hours 8. Warfarin: 7.5 mg Oral Daily PRN Medications ----- 1. Acetaminophen: 650 mg Oral Every 4 Hours Assessment and Plan: Assessment: 62yo F with extensive card hx, including HCM s/p dual BSC ICD 2013(Alcides), s/p extensive septal myomectomy, [facility] MVR, PVI, SAWYER amputation and unroofing for myocardial bridge by Dr Martinez 04/28, and AF/AFL previously on Sotalol, s/p PVI +RFA for left-sided AFL and mulitple CV, most recently 11/28 who is admitted electively for Tikosyn initiation. Atrial fibrillation/ Aflutter - s/p PVI + RFA, multiple CV, amputation of the left atrial appendage - AF 10/30 degenerating to VF w/ ICD shock - into rectumeviously on sotatol - EP following for tikosyn initiation - presently a-paced - coumadin for a/c HCM - s/p dual chamber ICD 01/2014 - s/p septal myomectomy, PVI, SAWYER amputation, unroofing for myocardial bridge 04/28 - TTE 10/2017 EF 45-50%, mild asymmetric LVH, abnormal LV diastolic filling, LA sev dilated, delayed saline bubbles indicative of intrapulm shunting, reduced RV systolic fxn, normal functioning MV prosthesis, trace MR MR - s/p MVR 04/2016 - TTE 10/2017 [employer]. Lars bileaflet mitral valve prosthesis with a 29 mm reported size, trace MR - subtherapeutic INR at 1.9, will bridge with heparin - cont coumadin 7.5mg. Managed by PCP in [place], uses home monitoring system HTN - cont current med Rx GERD - cont PPI Hyperthyroid - f/b endo as OP, euthyroid until 10/31 when hyperthyroid. Restarted on MMI - TSH pending - cont methimazole Disp - lives alone, independent - anticipate no home going needs PCP: Gerry Abbasi (in [place]) CARDS: Avery EP: Brooks Will D/W attending in am Signatures/Attestation/Cert ification: Attending Only - Shared Visit with Advanced Practice Provider This is a shared visit. I have reviewed the Advanced Practice Provider?s encounter note, approve the Advanced Practice Provider?s documentation, and provide the following additional information from my personal encounter. Comments/ Additional Findings I agree with the assessment and plan as aforementioned. Mitzi Varela MD, FACP, FACC, [facility] [employer] (Cardiology) Division of Cardiovascular Medicine, Department of Medicine [facility] [employer] Structural Heart Cupola Operator [facility] [address] [place], [place] [address] Email: [email or web address]: Pager: Attending Provider ? Inpatient Certification Statement I certify this patient?s need for inpatient care based on the above documentation including; the order to admit as inpatient, the anticipated length of stay, diagnosis, problem list and plan of care, and discharge plan. Electronic Signatures: Marck Sosa (PHYSICIAN)) (Signed 31-Jan-2018 18:53) Authored: History of Present Illness, Family History, Social History, Allergies, Review of Systems, Objective, Assessment and Plan, Signatures/Attestation/Cert ification Mitzi Varela) (Signed 01-Feb-2018 11:40) Authored: Comorbidities, Signatures/Attestation/Cert ification Co-Signer: History of Present Illness, Family History, Social History, Review of Systems, Objective, Assessment and Plan, Signatures/Attestation/Cert ification Last Updated: 01-Feb-2018 11:40 by Mitzi Varela) Normal [facility] MAGNESIUMon 01-31-2018 Magnesium mass conc 2.14 mg/dL Normal 1.60 - 2.40 [facility] Comment on above: Performed By: #### M G #### [facility] [address] [place] [address] PT/INRon 01-31-2018 INR Coag RelTime (PPP) 1.9 {INR} High 0.9 - 1.1 [facility] Comment on above: Performed By: #### P TINR #### [facility] [address] [place] [address] Prothrombin time (PT) Coag time (PPP) 21.7 s High 9.8 - 12.7 [facility] Comment on above: Performed By: #### P TINR #### [facility] [address] [place] [address] TH CHEST 2 VIEW PA AND LATon 01-31-2018 TH CHEST 2 VIEW PA AND LAT Patient Name: EM DANIEL STUDY: TH CHEST 2 VIEW PA AND LAT; 01/31/2018 7:18 pm INDICATION: Signs/Symptoms: HF, SOB, A-Fib. COMPARISON: Chest radiograph from 10/16/2017 ACCESSION NUMBER(S): [id number] ORDERING CLINICIAN: MARCK SOSA FINDINGS: Stable positioning of a left subclavian dual chamber cardiac pacemaker/AICD. The patient is status post median sternotomy and MVR. The cardiomediastinal silhouette is mildly enlarged and unchanged from prior. There is mild perihilar congestion without sidney pulmonary edema. There are new small bibasilar pleural effusions and associated atelectasis. No pneumothorax. No acute osseous abnormality. IMPRESSION: 1. New small bibasilar pleural effusions and associated mild atelectasis. 2. Stable enlargement of cardiomediastinal silhouette with mild perihilar congestion. No sidney pulmonary edema seen. Electronically signed by: GABBY MOORE MD Normal [facility] PT/INR POC Orderon 8 INR Coag RelTime (Bld) Collected [facility] Comment on above: Performed By: #### 8 [id number] ####[facility] [id number] [place] [address] PT/INR Capillaryon 8 INR Coag RelTime (Bld) 2.5 {INR} High 1.0-1.2 [facility] Comment on above: Result Comment: Sour ce Capillary Performed By: #### 8 [id number] ####[facility] [address] [place] [address] PT POC 29.0 second(s) High 8.0-11.0 [facility] Comment on above: Performed By: #### 8 [id number] ####[facility] [address] [place] [address] PT/INR POC Orderon 8 INR Coag RelTime (Bld) Collected [facility] Comment on above: Performed By: #### 8 [id number] ####[facility] [id number] [place] [address] Post Procedure Note - Not in OR-MICHAEL Cardioversionon 12-03-2017 Post Procedure Note - Not in OR-MICHAEL Cardioversion Pre-procedure Verification and Time Out:Procedure location: procedure areaPre-procedure verification - Procedure Area: See departmental electroniccharting or paper formTime-Out - Final Verification: See departmental electronic charting or paperformGeneral Information:Date/Time of Procedure: 03-Dec-2017 11:07Post-Procedure Diagnosis: Atrial FlutterProcedure Name: MICHAEL CardioversionFindings: See MICHAEL reportProcedure performed by: meAssistant(s): noneEstimated Blood Loss (mL): noneSpecimen: noIndication(s): Symptomatic atrial flutterInformed Consent: written consent obtainedProcedure Details:Procedure Details:The procedure was explained to the patient with risks and benefits includingrisk of stroke. The patient consented to the procedure. A transesophagealechocardiogr am was performed showing no left atrial appendage thrombus orthrombus in the left atrium. The patient was on anticoagulation with Warfarin.Anaesthesia provided the sedation. The pads were applied in the anterior /lateral approach. With a synchronized biphasic waveform at 50 J, one shock wassuccessful in eliminating atrial flutter as confirmed by 12-lead EKG. Thepatient had no immediate post-procedure complications.Tolerance: goodSignature/Cosignature/A ttestation:Attending Attestation I performed the procedure without a residentElectronic Signatures:Gurwinder Roland) (Signed 03-Dec-2017 11:09) Authored: Pre-procedure Verification and Time Out, General Information,Procedure Details, Signature/Cosignature/Attes tationLast Updated: 03-Dec-2017 11:09 by Gurwinder Roland) [facility] Transesophageal Echoon 12-03 Transesophageal Echo [facility], [address] [place] [address] and [id number] ECHOCARDIOGRAM REPORT Patient Name: EM Marcelino DANIEL Reading Physician: [id number] Gurwinder Roland MDStudy Date: 12/03/2017 Referring Physician: Oneyda Guy MDMRN/PID: [id number] PCP: Gerry Ababsi MDAccession/Order#: [id number] [facility] LabDate [facility] : 1955 Fellow:Gender: F Nurse: Fanta Vargas RNAdmit Date: 12/03/2017 Building Admin: Morelia Mccormickdmission Status: Outpatient Additional Staff: Anita Pressley CRNAHeight: 167.64 cm CC Report to:Weight: 72.58 kg Study Type: Transesophageal EchoBSA: 1.82 y4Rusna Pressure: 117 /63 mmHgDiagnosis/ICD: I48.1 Persistent atrial fibrillationIndication: Atrial FibrillationProcedure/CPT: MICHAEL Complete ([id number])([id number])([id number])Patien t History:Drug Allergies: NoneValve Disorders: Mitral Valve Replacement.Pacer/Defib: AICD/Perment pacemakerPertinent History: A-Fib, Anticoagulation and Cardiomyopathy. 62 y.o. female presents to be evaluted with a MICHAEL prior to DCC. 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 Also, multiple cardioversions for Afib, episode of Vfib, Hypothyroidism. PHYSICIAN INTERPRETATION:MICHAEL Details: Technically adequate omniplane transesophageal echocardiogram performed. Agitated saline contrast echo was performed to assess for the presence of a patent foramen ovale.MICHAEL Medication: The pharynx was anesthetized with Viscous lidocaine 15ml and Hurricaine spray x2. The patient was sedated by Anesthesia; please refer to anesthesia flow sheet for medications used.MICHAEL Procedure: The probe was passed without difficulty.Left Ventricle: The left ventricular systolic function is not well visualized. The left ventricular cavity size is not assessed. Left ventricular diastolic filling was not assessed.Left Atrium: The left atrium is severely dilated. There is no definite left atrial thrombus present. A bubble study using agitated saline was performed. Bubble study is negative. There is spontaneous contrast noted in the left atrial appendage, there is no thrombus visualized in the left atrial appendage and the left atrial appendage is small (largely absent--noted history of left atrial appendage ligation).Right Ventricle: The right ventricle was not well visualized. There is reduced right ventricular systolic function. A device is visualized in the right ventricle.Right Atrium: The right atrium is normal in size. There is a device visualized in the right atrium.Aortic Valve: The aortic valve is trileaflet. There is mild aortic valve cusp calcification. There is trivial aortic valve regurgitation.Mitral Valve: The mitral valve is abnormal. There is a St. Lars mechanical mitral valve prosthesis with a 25 mm reported size. There is mild prosthetic mitral valve regurgitaion. There is mild mitral valve regurgitation.Tricuspid Valve: The tricuspid valve is structurally normal. There is mild tricuspid regurgitation.Pulmonic Valve: The pulmonic valve is structurally normal. There is no indication of pulmonic valve regurgitation.Pericardium: There is no pericardial effusion noted.Aorta: The aortic root is normal. There is no plaque visualized in the descending aorta. CONCLUSIONS: 1. The left ventricular systolic function is not well visualized. 2. The left atrium is severely dilated. 3. There is a mechanical mitral valve prosthesis. 4. No left atrial thrombus.QUANTITATIVE DATA SUMMARY: [id number] Gurwinder Roland MDElectronically signed on 12/03/2017 at 3:00:11 PM Final Normal [facility] PT/INR Capillaryon 8 INR Coag RelTime (Bld) 2.1 {INR} High 1.0-1.2 [facility] Comment on above: Result Comment: Sour ce Capillary Performed By: #### 8 [id number] ####[facility] [address] [place] [address] PT POC 25.0 second(s) High 8.0-11.0 [facility] Comment on above: Performed By: #### 8 [id number] ####[facility] [address] [place] [id number] Free T3on 11-30-2017 Triiodothyronine (T3) free 3.6 pg/mL Normal 2.5-3.9 [facility] Comment on above: Performed By: #### 2 [id number] ####[facility] [address] [place] [id number] Free T4on 11-30-2017 Thyroxine (T4) free 1.07 ng/dL Normal 0.58-1.64 [facility] Comment on above: Result Comment: Skylar ents receiving more than 5mg/day of biotin may have interference in test results. A sample should be taken no sooner than eight hours after previous dose. Performed By: #### 2 [id number] ####[facility] [address] [place] [address] PTon 11-30-2017 INR Coag RelTime (PPP) 2.7 {INR} High 1.0-1.2 [facility] Comment on above: Result Comment: INR Recommended Therapeuptic Ranges: Prophylaxis/treatment of DVT and PE?2.0-3.0 Prevention of systemic embolism?.2.0-3.0 Mechanical prosthetic values?2.5-3.5 CRITICAL VALUES?.>4.0 Performed By: #### 2 [id number] ####[facility] [address] [place] [address] Prothrombin time (PT) Coag time (PPP) 27.2 second(s) High 11.6-14.6 [facility] Comment on above: Performed By: #### 2 [id number] ####[facility] [address] [place] [address] PTTon 11-30-2017 aPTT 38.1 second(s) High 23.2-36.4 [facility] Comment on above: Performed By: #### 2 [id number] ####[facility] [address] PTT Control Ratioon 12-01-19 18 PTT Ratio 1.3 ratio High 0.8-1.2 [facility] Comment on above: Order Comment: Order added by Discern Expert. Performed By: #### 8 [id number] ####[facility] [address] [place] [address] TSHon 11-30-2017 Thyroid stimulating hormone (TSH) 0.12 mIU/m Low 0.30-5.60 [facility] Comment on above: Performed By: #### 2 [id number] ####[facility] [id number] [place], [place] [id number] PT/INR Capillaryon 8 INR Coag RelTime (Bld) 1.6 {INR} High 1.0-1.2 [facility] Comment on above: Result Comment: Sour ce Capillary Performed By: #### 8 [id number] ####[facility] [address] [place] [address] PT POC 19.0 second(s) High 8.0-11.0 [facility] Comment on above: Performed By: #### 8 [id number] ####[facility] [address] [place] [address] PT/INR POC Orderon 8 INR Coag RelTime (Bld) Collected Normal [facility] Comment on above: Performed By: #### 8 [id number] ####[facility] [address] [place] [address] PTon 11-23-2017 INR Coag RelTime (PPP) 3.5 {INR} High 1.0-1.2 [facility] Comment on above: Result Comment: INR Recommended Therapeuptic Ranges: Prophylaxis/treatment of DVT and PE?2.0-3.0 Prevention of systemic embolism?.2.0-3.0 Mechanical prosthetic values?2.5-3.5 CRITICAL VALUES?.>4.0 Performed By: #### 2 [id number] ####[facility] [address] [place] [address] Prothrombin time (PT) Coag time (PPP) 32.9 second(s) High 11.6-14.6 [facility] Comment on above: Performed By: #### 2 [id number] ####[facility] [address] [place] [address] Vital Signs Date Time Vital Sign Value Performing Clinician Janell velazquez 03-06-2025 07:23-0400 Body height 167.[address] Roseline Delgado Work Phone: [facility] 03-06-2025 07:23-0400 Body mass index (BMI) [Ratio] 21.1 kg/m2 Dr. Roseline Barakat MD Work Phone: [facility] 03-06-2025 07:23-0400 Body weight 59.[address] Roseline Delgado Work Phone: [facility] 03-06-2025 07:23-0400 Diastolic blood pressure 63 mm[Hg] Dr. Roseline Barakat MD Work Phone: [facility] 03-06-2025 07:23-0400 Heart rate 70 /min Dr. Roseline Delgado Work Phone: [facility] 03-06-2025 07:23-0400 Respiratory rate 18 /min Dr. Roseline Delgado Work Phone: [facility] 03-06-2025 07:23-0400 SaO2% (BldA) [Mass fraction] 96 % Dr. Roseline Barakat MD Work Phone: [facility] 03-06-2025 07:23-0400 Systolic blood pressure 109 mm[Hg] Dr. Roseline Barakat MD Work Phone: [facility] 02-08-2025 08:24-0400 Body height 167.[address] Roseline Delgado Work Phone: [facility] 02-08-2025 08:24-0400 Body mass index (BMI) [Ratio] 20.8 kg/m2 Dr. Roesline Barakat MD Work Phone: [facility] 02-08-2025 08:24-0400 Body temperature 97.3 [degF] Dr. Roseline Delgado Work Phone: [facility] 02-08-2025 08:24-0400 Body weight 58.[address] Roseline Delgado Work Phone: [facility] 02-08-2025 08:24-0400 Diastolic blood pressure 69 mm[Hg] Dr. Roseline Barakat MD Work Phone: [facility] 02-08-2025 08:24-0400 Heart rate 69 /min Dr. Roseline Delgado Work Phone: [facility] 02-08-2025 08:24-0400 Respiratory rate 16 /min Dr. Roseline Delgado Work Phone: [facility] 02-08-2025 08:24-0400 SaO2% (BldA) [Mass fraction] 97 % Dr. Roseline Barakat MD Work Phone: [facility] 02-08-2025 08:24-0400 Systolic blood pressure 103 mm[Hg] Dr. Roseline Barakat MD Work Phone: [facility] 01-26-2025 15:30-0400 Body mass index (BMI) [Ratio] 21.5 kg/m2 Dr. Roseline Barakat MD Work Phone: [facility] 01-26-2025 09:57-0400 Body height 167.[address] Roseline Delgado Work Phone: [facility] 01-26-2025 09:57-0400 Body weight 60.[address] Roseline Delgado Work Phone: [facility] 01-26-2025 09:50-0400 Body temperature 98 [degF] Dr. Roseline Delgado Work Phone: [facility] 01-26-2025 09:50-0400 Diastolic blood pressure 73 mm[Hg] Dr. Roseline Barakat MD Work Phone: [facility] 01-26-2025 09:50-0400 Heart rate 76 /min Dr. Roseline Delgado Work Phone: [facility] 01-26-2025 09:50-0400 Respiratory rate 16 /min Dr. Roseline Delgado Work Phone: [facility] 01-26-2025 09:50-0400 SaO2% (BldA) [Mass fraction] 98 % Dr. Roseline Barakat MD Work Phone: [facility] 01-26-2025 09:50-0400 Systolic blood pressure 114 mm[Hg] Dr. Roselnie Barakat MD Work Phone: [facility] 01-26-2025 04:22-0400 Body mass index (BMI) [Ratio] 21.5 kg/m2 Dr. Roseline Barakat MD Work Phone: [facility] 01-25-2025 22:46-0400 Heart rate 70 /min Dr. Roseline Delgado Work Phone: [facility] 01-25-2025 22:46-0400 Inhaled oxygen concentration 21 % Dr. Roseline Barakat MD Work Phone: [facility] 01-25-2025 22:46-0400 Respiratory rate 20 /min Dr. Roseline Delgado Work Phone: [facility] 01-25-2025 22:46-0400 SaO2% (BldA) [Mass fraction] 93 % Dr. Roseline Barakat MD Work Phone: [facility] 01-25-2025 18:23-0400 Body mass index (BMI) [Ratio] 21.6 kg/m2 Dr. Roseline Barakat MD Work Phone: [facility] 01-25-2025 18:00-0400 Body temperature 98.2 [degF] Dr. Roseline Delgado Work Phone: [facility] 01-25-2025 18:00-0400 Diastolic blood pressure 71 mm[Hg] Dr. Roseline Barakat MD Work Phone: [facility] 01-25-2025 18:00-0400 Systolic blood pressure 106 mm[Hg] Dr. Roseline Barakat MD Work Phone: [facility] 01-25-2025 15:47-0400 Body height 167.[address] Roseline Delgado Work Phone: [facility] 01-25-2025 15:47-0400 Body weight 60.[address] Roseline Delgado Work Phone: [facility] 01-25-2025 15:30-0400 Heart rate 70 /min Dr. Roseline Delgado Work Phone: [facility] 01-25-2025 15:30-0400 Respiratory rate 23 /min Dr. Roseline Delgado Work Phone: [facility] 01-25-2025 15:30-0400 SaO2% (BldA) [Mass fraction] 96 % Dr. Roseline Barakat MD Work Phone: [facility] 01-25-2025 15:19-0400 Diastolic blood pressure 66 mm[Hg] Dr. Roseline Barakat MD Work Phone: [facility] 01-25-2025 15:19-0400 Systolic blood pressure 123 mm[Hg] Dr. Roseline Barakat MD Work Phone: [facility] 01-25-2025 12:02-0400 Body height 165.[address] Roseline Delgado Work Phone: [facility] 01-25-2025 12:02-0400 Body mass index (BMI) [Ratio] 22.6 kg/m2 Dr. Roseline Barakat MD Work Phone: [facility] 01-25-2025 12:02-0400 Body weight 61.[address] Roseline Delgado Work Phone: [facility] 01-25-2025 11:58-0400 Body temperature 98.3 [degF] Dr. Roseline Delgado Work Phone: [facility] 01-09-2025 07:54-0400 Body mass index (BMI) [Ratio] 22.8 kg/m2 Dr. Roseline Barakat MD Work Phone: [facility] 01-09-2025 07:54-0400 Body temperature 97.1 [degF] Dr. Roseline Delgado Work Phone: [facility] 01-09-2025 07:54-0400 Body weight 62.[address] Roseline Delgado Work Phone: [facility] 01-09-2025 07:54-0400 Diastolic blood pressure 58 mm[Hg] Dr. Roseline Barakat MD Work Phone: [facility] 01-09-2025 07:54-0400 Heart rate 55 /min Dr. Roseline Delgado Work Phone: [facility] 01-09-2025 07:54-0400 Respiratory rate 18 /min Dr. Roseline Delgado Work Phone: [facility] 01-09-2025 07:54-0400 SaO2% (BldA) [Mass fraction] 99 % Dr. Roseline Barakat MD Work Phone: [facility] 01-09-2025 07:54-0400 Systolic blood pressure 101 mm[Hg] Dr. Roseline Barakat MD Work Phone: [facility] 12-12-2024 09:34-0400 Body mass index (BMI) [Ratio] 22.4 kg/m2 Dr. Roseline Barakat MD Work Phone: [facility] 12-12-2024 09:34-0400 Body weight 61.[address] Roseline Delgado Work Phone: [facility] 12-12-2024 09:34-0400 Diastolic blood pressure 65 mm[Hg] Dr. Roseline Barakat MD Work Phone: [facility] 12-12-2024 09:34-0400 Heart rate 70 /min Dr. Roseline Delgado Work Phone: [facility] 12-12-2024 09:34-0400 Respiratory rate 16 /min Dr. Roseline Delgado Work Phone: [facility] 12-12-2024 09:34-0400 Systolic blood pressure 105 mm[Hg] Dr. Roseline Barakat MD Work Phone: [facility] 10-29-2023 08:49-0500 Body height 165.[address] Roseline Barakat Work Phone: [facility] 10-29-2023 08:46-0500 Body mass index (BMI) [Ratio] 21.9 kg/m2 Dr. Roseline Barakat Work Phone: [facility] 10-29-2023 08:46-0500 Body weight 59.[address] Roseline Barakat Work Phone: [facility] 10-29-2023 08:46-0500 Diastolic blood pressure 72 mm[Hg] Dr. Roseline Barakat Work Phone: [facility] 10-29-2023 08:46-0500 Heart rate 67 /min Dr. Roseline Barakat Work Phone: [facility] 10-29-2023 08:46-0500 Respiratory rate 18 /min Dr. Roseline Barakat Work Phone: [facility] 10-29-2023 08:46-0500 Systolic blood pressure 109 mm[Hg] Dr. Roseline Barakat Work Phone: [facility] 08-27-2023 14:03-0500 Body height 165.[address] Yordy Allen Work Phone: [facility] 08-27-2023 14:03-0500 Body mass index (BMI) [Ratio] 22.3 kg/m2 Dr. Yordy Allen Work Phone: [facility] 08-27-2023 14:03-0500 Body temperature 98.8 [degF] Dr. Yordy Allen Work Phone: [facility] 08-27-2023 14:03-0500 Body weight 60.[address] Yordy Allen Work Phone: 4(867)856-611714 [place] [address] 08-27-2023 14:03-0500 Diastolic blood pressure 70 mm[Hg] Dr. Yordy Allen Work Phone: 3(463)524-939014 [place] [address] 08-27-2023 14:03-0500 Heart rate 70 /min Dr. Yordy Allen Work Phone: 7(649)261-533114 [place] [address] 08-27-2023 14:03-0500 Respiratory rate 16 /min Dr. Yordy Allen Work Phone: 9(157)645-083014 [place] [address] 08-27-2023 14:03-0500 SaO2% (BldA) [Mass fraction] 97 % Dr. Yordy Allen Work Phone: 1(317)561-446914 [place] [address] 08-27-2023 14:03-0500 Systolic blood pressure 110 mm[Hg] Dr. Yordy Allen Work Phone: 3(356)224-889514 [place] [address] 08-25-2023 10:13-0500 Body mass index (BMI) [Ratio] 23.6 kg/m2 Dr. Yordy Allen Work Phone: 7(976)891-130714 [place] [address] 08-25-2023 10:13-0500 Body weight 64.[address] Yordy Allen Work Phone: 1(069)031-350039 [place] [address] 08-25-2023 10:13-0500 Diastolic blood pressure 72 mm[Hg] Dr. Yordy Allen Work Phone: 3(191)368-268514 [place] [address] 08-25-2023 10:13-0500 Heart rate 70 /min Dr. Yordy Allen Work Phone: 0(834)945-854939 [place] [address] 08-25-2023 10:13-0500 Respiratory rate 18 /min Dr. Yordy Allen Work Phone: 5(485)182-480714 [place] [address] 08-25-2023 10:13-0500 Systolic blood pressure 110 mm[Hg] Dr. Yordy Allen Work Phone: 7(333)746-292339 [place] [address] 08-24-2023 07:54-0500 Body mass index (BMI) [Ratio] 23.3 kg/m2 Dr. Yordy Allen Work Phone: 8(904)839-615714 [place] [address] 08-24-2023 07:54-0500 Body temperature 97.1 [degF] Dr. Yordy Allen Work Phone: 9(315)528-030614 [place] [address] 08-24-2023 07:54-0500 Body weight 63.[address] Yordy Allen Work Phone: 2(616)089-214114 [place] [address] 08-24-2023 07:54-0500 Diastolic blood pressure 67 mm[Hg] Dr. Yordy Allen Work Phone: 1(937)608-437414 [place] [address] 08-24-2023 07:54-0500 Heart rate 63 /min Dr. Yordy Allen Work Phone: 6(435)908-421214 [place] [address] 08-24-2023 07:54-0500 Respiratory rate 20 /min Dr. Yordy Allen Work Phone: 8(364)972-009714 [place] [address] 08-24-2023 07:54-0500 SaO2% (BldA) [Mass fraction] 99 % Dr. Yordy Allen Work Phone: 8(366)349-157914 [place] [address] 08-24-2023 07:54-0500 Systolic blood pressure 114 mm[Hg] Dr. Yordy Allen Work Phone: 8(943)502-186214 [place] [address] 05-20-2023 13:25-0400 Body mass index (BMI) [Ratio] 22.1 kg/m2 Dr. Yordy Allen Work Phone: 1(473)503-790014 [place] [address] 05-20-2023 13:25-0400 Body temperature 97.9 [degF] Dr. Yordy Allen Work Phone: 5(477)498-866214 [place] [address] 05-20-2023 13:25-0400 Body weight 60.[address] Yordy Allen Work Phone: 0(388)761-155614 [place] [address] 05-20-2023 13:25-0400 Diastolic blood pressure 64 mm[Hg] Dr. Yordy Allen Work Phone: 8(227)108-025614 [place] [address] 05-20-2023 13:25-0400 Heart rate 72 /min Dr. Yordy Allen Work Phone: 4(057)005-341314 [place] [address] 05-20-2023 13:25-0400 Respiratory rate 18 /min Dr. Yordy Allen Work Phone: 2(154)474-980614 [place] [address] 05-20-2023 13:25-0400 SaO2% (BldA) [Mass fraction] 94 % Dr. Yordy Allen Work Phone: 0(710)336-870814 [place] [address] 05-20-2023 13:25-0400 Systolic blood pressure 110 mm[Hg] Dr. Yordy Allen Work Phone: 7(208)548-734314 [place] [address] 04-14-2023 10:57-0400 Body height 165.[address] Yordy Allen Work Phone: 6(560)460-519914 [place] [address] 04-14-2023 10:55-0400 Body mass index (BMI) [Ratio] 21.6 kg/m2 Dr. Yordy Allen Work Phone: 8(755)622-181514 [place] [address] 04-14-2023 10:55-0400 Body weight 58.[address] Yordy Allen Work Phone: 3(838)352-652914 [place] [address] 04-14-2023 10:55-0400 Diastolic blood pressure 65 mm[Hg] Dr. Yordy Allen Work Phone: 2(872)926-162514 [place] [address] 04-14-2023 10:55-0400 Heart rate 74 /min Dr. Yordy Allen Work Phone: 6(105)225-284814 [place] [address] 04-14-2023 10:55-0400 Respiratory rate 18 /min Dr. Yordy Allen Work Phone: 9(234)897-941614 [place] [address] 04-14-2023 10:55-0400 SaO2% (BldA) [Mass fraction] 100 % Dr. Yordy Allen Work Phone: 6(568)752-361614 [place] [address] 04-14-2023 10:55-0400 Systolic blood pressure 102 mm[Hg] Dr. Yordy Allen Work Phone: 2(912)501-895514 [place] [address] 02-15-2023 07:54-0400 Body mass index (BMI) [Ratio] 21.6 kg/m2 Dr. Yordy Allen Work Phone: [facility] 02-15-2023 07:54-0400 Body temperature 97.6 [degF] Dr. Yordy Allen Work Phone: [facility] 02-15-2023 07:54-0400 Body weight 58.[address] Yordy Allen Work Phone: [facility] 02-15-2023 07:54-0400 Diastolic blood pressure 56 mm[Hg] Dr. Yordy Allen Work Phone: [facility] 02-15-2023 07:54-0400 Heart rate 70 /min Dr. Yordy Allen Work Phone: [facility] 02-15-2023 07:54-0400 Respiratory rate 16 /min Dr. Yordy Allen Work Phone: [facility] 02-15-2023 07:54-0400 SaO2% (BldA) [Mass fraction] 97 % Dr. Yordy Allen Work Phone: [facility] 02-15-2023 07:54-0400 Systolic blood pressure 94 mm[Hg] Dr. Yordy Allen Work Phone: [facility] 12-15-2022 13:48-0400 Body height 165.1 cm Santino Phan MD Work Phone: [facility] 12-15-2022 13:48-0400 Body weight 59.6 kg Santino Phan MD Work Phone: [facility] 12-15-2022 13:48-0400 Diastolic blood pressure 63 mm[Hg] Santino Phan MD Work Phone: [facility] 12-15-2022 13:48-0400 Heart rate 71 /min Santino Phan MD Work Phone: [facility] 12-15-2022 13:48-0400 Respiratory rate 12 /min Santino Phan MD Work Phone: [facility] 12-15-2022 13:48-0400 SaO2% (BldA) [Mass fraction] 100 % Santino Phan MD Work Phone: [facility] 12-15-2022 13:48-0400 Systolic blood pressure 115 mm[Hg] Santino Phan MD Work Phone: [facility] 10-09-2022 14:01-0500 Body height 165.1 cm Abdullahi Sheldon PA-C Work Phone: [facility] 10-09-2022 14:01-0500 Body weight 60.55 kg Abdullahi Sheldon PA-C Work Phone: [facility] 10-09-2022 14:01-0500 Diastolic blood pressure 62 mm[Hg] Abdullahi Sheldon PA-C Work Phone: [facility] 10-09-2022 14:01-0500 Heart rate 80 /min Abdullahi Sheldon PA-C Work Phone: [facility] 10-09-2022 14:01-0500 Systolic blood pressure 104 mm[Hg] Abdullahi Sheldon PA-C Work Phone: [facility] 10-07-2022 06:21-0500 Body height 165.[address] Yordy Allen Work Phone: [facility] 10-07-2022 06:21-0500 Body mass index (BMI) [Ratio] 23.9 kg/m2 Dr. Yordy Allen Work Phone: [facility] 10-07-2022 06:21-0500 Body temperature 97.2 [degF] Dr. Yordy Allen Work Phone: [facility] 10-07-2022 06:21-0500 Body weight 65.[address] Yordy Allen Work Phone: 8(441)238-006414 [place] [address] 10-07-2022 06:21-0500 Diastolic blood pressure 61 mm[Hg] Dr. Yordy Allen Work Phone: 2(730)825-177614 [place] [address] 10-07-2022 06:21-0500 Heart rate 80 /min Dr. Yordy Allen Work Phone: 4(205)669-303514 [place] [address] 10-07-2022 06:21-0500 Respiratory rate 18 /min Dr. Yordy Allen Work Phone: 2(258)257-607414 [place] [address] 10-07-2022 06:21-0500 SaO2% (BldA) [Mass fraction] 94 % Dr. Yordy Allen Work Phone: 7(387)646-679014 [place] [address] 10-07-2022 06:21-0500 Systolic blood pressure 92 mm[Hg] Dr. Yordy Allen Work Phone: 3(853)898-612614 [place] [address] 10-06-2022 15:03-0500 Body mass index (BMI) [Ratio] 23.3 kg/m2 Dr. Yordy Allen Work Phone: 4(018)307-696114 [place] [address] 10-06-2022 15:03-0500 Body weight 63.[address] Yordy Allen Work Phone: 3(869)823-488314 [place] [address] 10-06-2022 15:03-0500 Diastolic blood pressure 60 mm[Hg] Dr. Yordy Allen Work Phone: 4(423)900-668714 [place] [address] 10-06-2022 15:03-0500 Heart rate 80 /min Dr. Yordy Allen Work Phone: 4(882)807-397714 [place] [address] 10-06-2022 15:03-0500 Respiratory rate 18 /min Dr. Yordy Allen Work Phone: 4(382)947-899914 [place] [address] 10-06-2022 15:03-0500 Systolic blood pressure 98 mm[Hg] Dr. Yordy Allen Work Phone: 9(129)382-283414 [place] [address] 09-29-2022 14:08-0500 Body weight 63.[address] Yordy Allen Work Phone: 4(226)505-542014 [place] [address] 09-29-2022 14:08-0500 Heart rate 79 /min Dr. Yordy Allen Work Phone: [facility] 09-29-2022 14:08-0500 SaO2% (BldA) [Mass fraction] 92 % Dr. Yordy Allen Work Phone: [facility] 09-22-2022 16:55-0500 Body temperature 97.4 [degF] Dr. Yordy Allen Work Phone: 3(339)037-222539 [place] [address] 09-22-2022 16:55-0500 Diastolic blood pressure 66 mm[Hg] Dr. Yordy Allen Work Phone: 7(850)017-081339 [place] [address] 09-22-2022 16:55-0500 Heart rate 81 /min Dr. Yordy Allen Work Phone: 7(287)824-223599 [address] 09-22-2022 16:55-0500 Respiratory rate 16 /min Dr. Yordy Allen Work Phone: 8(525)693-298514 [place] [address] 09-22-2022 16:55-0500 SaO2% (BldA) [Mass fraction] 94 % Dr. Yordy Allen Work Phone: 7(095)790-915539 [place] [address] 09-22-2022 16:55-0500 Systolic blood pressure 105 mm[Hg] Dr. Yordy Allen Work Phone: 8(355)643-539939 [place] [address] 09-22-2022 06:00-0500 Body weight 67.[address] Yordy Allen Work Phone: 2(861)256-619339 [place] [address] 09-21-2022 20:29-0500 Inhaled oxygen flow rate 3 L/min Dr. Yordy Allen Work Phone: [facility] 09-21-2022 10:54-0500 Body height 165.[address] Yordy Allen Work Phone: [facility] Work Phone: 09-20-2022 23:35-0500 Inhaled oxygen flow rate 2 L/min MICHEL Bauer NP Work Phone: [facility] Work Phone: 09-20-2022 23:34-0500 Body temperature 98.3 [degF] [employer] Jessika Hidalgo r SHEEP [employer]IPPER Work Phone: [facility] Work Phone: 09-20-2022 23:34-0500 Diastolic blood pressure 71 mm[Hg] [employer]C Jessika Bauer SHEEP [employer]IPPER Work Phone: [facility] Work Phone: 09-20-2022 23:34-0500 Heart rate 81 /min [employer]-C eJssika Hidalgo r SHEEP CLIPPER Work Phone: [facility] Work Phone: 09-20-2022 23:34-0500 Respiratory rate 20 /min [employer] Jessika Hidalgo r SHEEP CLIPPER Work Phone: [facility] Work Phone: 09-20-2022 23:34-0500 SaO2% (BldA) [Mass fraction] 96 % [employer] Jessika Bauer SHEEP CLIPPER Work Phone: [facility] Work Phone: 09-20-2022 23:34-0500 Systolic blood pressure 124 mm[Hg] [employer]C Jessika Bauer SHEEP CLIPPER Work Phone: [facility] Work Phone: 09-20-2022 23:25-0500 Body height 165.1 cm [employer]C Jesiska Hidalgo r SHEEP [employer]PER Work Phone: [facility] Work Phone: 09-20-2022 23:25-0500 Body mass index (BMI) [Ratio] 25.1 kg/m2 [employer] Jessika Bauer SHEEP [employer]PER Work Phone: [facility] 09-20-2022 23:25-0500 Body weight 68.5 kg [employer] Jessika Hidalgo r SHEEP CLIPPER Work Phone: [facility] Work Phone: 08-17-2022 14:08-0500 Diastolic blood pressure 82 mm[Hg] [employer]C Jessika Bauer SHEEP CLIPPER Work Phone: [facility] 08-17-2022 14:08-0500 Heart rate 60 /min [employer] Jessika Hidalgo r SHEEP CLIPPER Work Phone: [facility] 08-17-2022 14:08-0500 Respiratory rate 16 /min [employer] Jessika Hidalgo r SHEEP CLIPPER Work Phone: [facility] 08-17-2022 14:08-0500 SaO2% (BldA) [Mass fraction] 98 % [employer] Jessika Bauer SHEEP CLIPPER Work Phone: [facility] 08-17-2022 14:08-0500 Systolic blood pressure 124 mm[Hg] [employer]C Jessika Bauer SHEEP CLIPPER Work Phone: [facility] 08-17-2022 07:59-0500 Body height 165.1 cm [employer]C Jessika Hidalgo r SHEEP CL[employer]PER Work Phone: [facility] Work Phone: 08-17-2022 07:59-0500 Body mass index (BMI) [Ratio] 23.3 kg/m2 [employer] Jessika Bauer SHEEP [employer]IPPER Work Phone: [facility] 08-17-2022 07:59-0500 Body temperature 96.9 [degF] [employer]C Jessika Hidalgo r SHEEP CLIPPER Work Phone: [facility] 08-17-2022 07:59-0500 Body weight 63.5 kg [employer]C Jessika Hidalgo r SHEEP CLIPPER Work Phone: [facility] 07-28-2022 13:24-0500 Body height 167.6 cm Oneyda Guy MD Work Phone: [facility] 07-28-2022 13:24-0500 Body weight 65.77 kg Oneyda Guy MD Work Phone: [facility] 07-28-2022 13:24-0500 Diastolic blood pressure 80 mm[Hg] Oneyda Guy MD Work Phone: [facility] 07-28-2022 13:24-0500 Heart rate 91 /min Oneyda Guy MD Work Phone: [facility] 07-28-2022 13:24-0500 Systolic blood pressure 120 mm[Hg] Oneyda Guy MD Work Phone: [facility] 07-08-2022 14:27-0400 Body height 165.1 cm [employer]C Jessika garcia SHEEP CLIPPER Work Phone: [facility] Work Phone: 07-08-2022 14:27-0400 Body mass index (BMI) [Ratio] 24.6 kg/m2 [employer] Jessika Bauer SHEEP CLIPPER Work Phone: [facility] 07-08-2022 14:27-0400 Body temperature 95.8 [degF] [employer]C Jessika garcia SHEEP [employer]PER Work Phone: [facility] 07-08-2022 14:27-0400 Body weight 67.13 kg [employer]C Jessika garcia SHEEP CL[employer]PER Work Phone: [facility] 07-08-2022 14:27-0400 Diastolic blood pressure 79 mm[Hg] [employer]C Jessika Bauer SHEEP CLIPPER Work Phone: [facility] 07-08-2022 14:27-0400 Heart rate 97 /min [employer] Jessika garcia SHEEP CLIPPER Work Phone: [facility] 07-08-2022 14:27-0400 Respiratory rate 16 /min [employer] Jessika Hidalgo r SHEEP CLIPPER Work Phone: [facility] 07-08-2022 14:27-0400 SaO2% (BldA) [Mass fraction] 96 % SHEEP CLIPPER-Binta Bauer SHEEP CLIPPER Work Phone: [facility] 07-08-2022 14:27-0400 Systolic blood pressure 119 mm[Hg] SHEEP CLIPPER-Binta Bauer SHEEP CLIPPER Work Phone: [facility] 02-11-2022 15:26-0400 Body height 165.1 cm Oneyda Guy MD Work Phone: [facility] 02-11-2022 15:26-0400 Body weight 65.82 kg Oneyda Guy MD Work Phone: [facility] 02-11-2022 15:26-0400 Diastolic blood pressure 62 mm[Hg] Oneyda Guy MD Work Phone: [facility] 02-11-2022 15:26-0400 Systolic blood pressure 100 mm[Hg] Oneyda Guy MD Work Phone: [facility] 12-23-2021 14:51-0400 Body height 165.1 cm Oneyda Guy MD Work Phone: [facility] 12-23-2021 14:51-0400 Body weight 67.13 kg Oneyda Guy MD Work Phone: [facility] 12-23-2021 14:51-0400 Diastolic blood pressure 60 mm[Hg] Oneyda Guy MD Work Phone: [facility] 12-23-2021 14:51-0400 Heart rate 73 /min Oneyda Guy MD Work Phone: [facility] 12-23-2021 14:51-0400 Systolic blood pressure 104 mm[Hg] Oneyda Guy MD Work Phone: [facility] 2021 23:45-0500 SaO2% (BldA) [Mass fraction] 52 % [facility] Encounters Encounter Date Encounter Type Care Provider Facility Start: 03-06-2025 End: 03-06-[address] Roseline Barakat MD Work Phone: [facility] Work Phone: Start: 03-06-2025 End: 03-06-2025 Patient encounter procedure [address] -[facility] Work Phone: Start: 03-01-2025 ambulatory Roseline Barakat Facility :[facility] Start: 03-01-2025 Non-patient / Non-visit Dr. Roseline cardozo MD -[facility] Work Phone: Start: 03-01-2025 Encounter for genera l adult medical examination without abnormal findings Jessika Bauer NP [facility] Start: 02-27-2025 ambulatory Roseline Barakat Facility :[facility] Start: 02-27-2025 Non-patient / Non-visit Dr. Roseline cardozo MD -[facility] Work Phone: Start: 02-23-2025 End: 02-23-[address] Roseline Barakat MD Work Phone: [facility] Work Phone: Start: 02-23-2025 End: 02-23-2025 Patient encounter procedure Jessika Bauer [facility] Work Phone: Start: 02-22-2025 End: 02-23-[address] Roseline Barakat MD Work Phone: [facility] Work Phone: Start: 02-22-2025 End: 02-22-2025 Patient encounter procedure Jessika Bauer [facility] Work Phone: Start: 02-22-2025 End: 02-22-2025 ambulatory Jessika Bauer NP Facility:[facility] Start: 02-19-2025 ambulatory Roseline Barakat Facility :[facility] Start: 02-19-2025 Non-patient / Non-visit Dr. Roseline cardozo MD -[facility] Work Phone: Start: 02-14-2025 End: 02-14-[address] Roseline Barakat MD Work Phone: [facility] Work Phone: Start: 02-14-2025 End: 02-14-[address] Trevor Barajas MD -[facility] Work Phone: Start: 02-12-2025 ambulatory Roseline Barakat Facility :[facility] Start: 02-12-2025 Non-patient / Non-visit Dr. Roseline cardozo MD -[facility] Work Phone: Start: 02-08-2025 End: 02-08-[address] Roseline Barakat MD Work Phone: [facility] Work Phone: Start: 02-08-2025 End: 02-08-2025 Patient encounter procedure Jessika Bauer [employer]-C -[facility] Work Phone: Start: 02-08-2025 End: 02-08-[address] Facility:[facility] Start: 01-31-2025 End: 01-31-[address] Roseline Barakat MD Work Phone: [facility] Work Phone: Start: 01-31-2025 End: 01-31-[address] Trevor Barajas MD -[facility] Work Phone: Start: 01-26-2025 Non-patient / Non-visit Dr. Yordy Hernandez DO -[facility] Work Phone: Start: 01-26-2025 ambulatory Trevor Barajas Facility:[facility] Start: 01-26-2025 Non-patient / Non-visit Dr. Laura ENRIQUEZ -[facility] Start: 01-25-2025 End: 01-26-2025 Evaluation and management of inpatient Dr. Renée Fields MD -Pro[facility] Unit Work Phone: Start: 01-25-2025 End: 01-26-[address] Roseline Barakat MD Work Phone: [facility] Work Phone: Start: 01-25-2025 End: 01-26-2025 ambulatory Renée Fields Facility:[facility] Start: 01-25-2025 Non-patient / Non-visit Dr. Renée Fields MD -[facility] Work Phone: Start: 01-15-2025 End: 01-15-[address] Roseline Barakat MD Work Phone: [facility] Work Phone: Start: 01-15-2025 End: 01-15-[address] [facility] Work Phone: Start: 01-10-2025 End: 01-10-2025 ambulatory Roseline Barakat Facility:[facility] Start: 01-10-2025 End: 01-10-[address] Trevor [facility] Work Phone: Start: 01-09-2025 End: 01-09-2025 Patient encounter procedure Jessika Bauer [employer]-C -[facility] Work Phone: Start: 01-09-2025 End: 01-09-2025 ambulatory Jessika Bauer [employer]EP [employer]PER Facility:[facility] Start: 01-08-2025 End: 01-08-2025 ambulatory Roseline Barakat Facility:[facility] Start: 01-08-2025 End: 01-08-[address] [facility] Work Phone: Start: 01-01-2025 End: 01-01-2025 ambulatory Roseline Barakat Facility:[facility] Start: 01-01-2025 End: 01-01-[address] Trevor [facility] Work Phone: Start: 12-18-2024 End: 12-18-[address] Roseline Barakat MD Work Phone: [facility] Work Phone: Start: 12-18-2024 End: 12-18-[address] [facility] Work Phone: Start: 12-12-2024 End: 12-12-[address] Roseline Barakat MD Work Phone: [facility] Work Phone: Start: 12-12-2024 End: 12-12-[address] Trevor Barajas MD -[facility] Work Phone: Start: 12-07-2024 End: 12-07-[address] Roseline Barakat MD Work Phone: [facility] Work Phone: Start: 12-07-2024 End: 12-07-2024 Patient encounter procedure Kong Pardo [employer]-C -Laboratory Work Phone: Start: 12-07-2024 End: 12-07-2024 ambulatory Kong Pardo SHEEP [employer]IPPER Facility:[facility] Start: 11-27-2024 End: 11-27-2024 ambulatory Roselinemya Cooky Facility:[facility] Start: 11-27-2024 End: 11-27-[address] Trevor Barajas MD -[facility] Work Phone: Start: 11-19-2024 End: 11-19-2024 ambulatory Roseline Garibaldi Facility:[facility] Start: 11-19-2024 End: 11-19-[address] Trevor Barajas MD -[facility] Work Phone: Start: 10-30-2024 ambulatory Roseline Yuval Facility :[facility] Start: 10-30-2024 Non-patient / Non-visit Dr. Roseline cardozo MD -[facility] Work Phone: Start: 10-19-2024 End: 10-19-[address] Roseline Barakat MD -Laboratory Work Phone: Start: 10-19-2024 End: 10-19-2024 ambulatory Roseline Garibaldi Facility:[facility] Start: 10-11-2024 End: 10-11-2024 ambulatory Roseline Yuval Facility:[facility] Start: 10-11-2024 End: 10-11-[address] Trevor Barajas MD -[facility] Work Phone: Start: 09-26-2024 ambulatory Genesis Salinaso Facility: [facility] Start: 09-14-2024 End: 09-14-[address] Enrrique Velez MD -Ultrasound, [facility] Work Phone: Start: 09-14-2024 End: 09-14-2024 ambulatory Enrrique Velez Facility:[facility] Start: 09-08-2024 End: 09-08-2024 ambulatory Roseline Garibaldi Facility:[facility] Start: 09-08-2024 End: 09-08-[address] Trevor Barajas MD -[facility] Work Phone: Start: 08-25-2024 End: 08-25-2024 ambulatory Roseline Yuval [facility] Start: 08-25-2024 End: 08-25-[address] Trevor Barajas MD -[facility] Work Phone: Start: 08-08-2024 ambulatory Roseline Garibaldi Facility :[facility] Start: 08-07-2024 End: 08-07-2024 ambulatory Roseline Garibaldi [facility] Start: 07-27-2024 End: 07-27-2024 ambulatory Roseline Yuval Facility:[facility] Start: 07-10-2024 End: 07-10-2024 ambulatory Roseline Yuval [facility] Start: 07-03-2024 ambulatory Roseline Yuval Facility [facility] Start: 06-23-2024 ambulatory Roseline Yuval [facility] Start: 06-12-2024 ambulatory Roseline Yuval Facility [facility] Start: 06-06-2024 End: 06-06-2024 ambulatory Jayamacrinakas Lynn Facility:[facility] Start: 05-29-2024 ambulatory Roseline Garibaldi Facility :[facility] Start: 05-23-2024 End: 05-23-2024 ambulatory Yordy Allen [facility] Start: 05-23-2024 End: 05-23-2024 ambulatory Jessika Bauer NP Facility:[facility] Start: 05-16-2024 End: 05-16-2024 ambulatory Roseline Garibaldi Facility:[facility] Start: 05-11-2024 End: 05-11-2024 ambulatory Roseline Garibaldi [facility] Start: 05-08-2024 End: 05-08-2024 ambulatory Roseline Yuval [facility] Start: 05-02-2024 End: 05-02-2024 ambulatory Roseline Garibaldi [facility] Start: 04-10-2024 End: 04-10-2024 ambulatory Roseline Garibaldi Facility:[facility] Start: 04-10-2024 ambulatory Roseline Garibaldi Facility [facility] Start: 04-03-2024 End: 04-03-2024 ambulatory Schoolcraft Karl Facility:[facility] Start: 03-06-2024 ambulatory Roseline Garibaldi Facility [facility] Start: 01-17-2024 End: 01-17-[address] Roseline Barakat Work Phone: [facility] Work Phone: Start: 01-17-2024 End: 01-17-[address] Roseline Barakat Work Phone: [facility] Work Phone: Start: 01-11-2024 Non-patient / Non-visit Dr. Stevenson Work Phone: [facility] Work Phone: Start: 01-03-2024 End: 01-03-[address] Roseline Barakat Work Phone: [facility] Work Phone: Start: 11-25-2023 End: 11-25-[address] Yordy Allen Work Phone: [facility] Work Phone: Start: 11-25-2023 End: 11-25-[address] Yordy Allen Work Phone: [facility] Work Phone: Start: 11-23-2023 Non-patient / Non-visit Dr. Rylee Allen Work Phone: [facility] Work Phone: Start: 11-10-2023 ambulatory Johnson Duval RN Work Phone: [employer] Comment on above: cdm (enrollment) Start: 10-29-2023 End: 10-29-[address] Roseline Barakat Work Phone: [facility] Work Phone: Start: 10-29-2023 End: 10-29-[address] Roseline Barakat Work Phone: [facility] Work Phone: Start: 10-26-2023 End: 10-26-[address] Yordy Allen Work Phone: [facility] Work Phone: Start: 09-27-2023 Non-patient / Non-visit Dr. Rylee Allen Work Phone: [facility] Start: 09-27-2023 End: 09-27-[address] Yordy Allen Work Phone: [facility] Work Phone: Start: 09-27-2023 End: 09-27-[address] Yordy Allen Work Phone: [facility] Work Phone: Start: 09-20-2023 Non-patient / Non-visit Dr. Rylee Allen Work Phone: [facility] Work Phone: Start: 09-16-2023 End: 09-16-[address] Roseline Barakat Work Phone: [facility] Work Phone: Start: 09-02-2023 End: 09-02-[address] Yordy Allen Work Phone: [facility] Work Phone: Start: 09-02-2023 End: 09-02-[address] Yordy Allen Work Phone: [facility]Outpatient [facility] Work Phone: Start: 08-27-2023 End: 08-27-[address] Yordy Allen Work Phone: [facility] Endocrinology Work Phone: Start: 08-26-2023 End: 08-26-[address] Yordy Allen Work Phone: [facility] Work Phone: Start: 08-25-2023 End: 08-25-[address] Yordy Allen Work Phone: [facility] Work Phone: Start: 08-25-2023 End: 08-25-[address] Yordy Allen Work Phone: [facility] Work Phone: Start: 08-24-2023 End: 08-24-[address] Yordy Allen Work Phone: [facility] Work Phone: Start: 08-24-2023 End: 08-24-[address] Yordy Allen Work Phone: [facility] Work Phone: Start: 08-04-2023 ambulatory Yordy hidalgo MD Work Phone: [facility] [place] Start: 07-28-2023 Non-patient / Non-visit [facility] Allen [facility] Work Phone: Start: 07-26-2023 End: 07-26-[address] [facility] Work Phone: Start: 06-28-2023 Non-patient / Non-visit Dr. Rylee Allen Work Phone: [facility] Work Phone: Start: 06-14-2023 Non-patient / Non-visit Dr. Rylee Allen Work Phone: [facility] Work Phone: Start: 05-20-2023 End: 05-20-[address] Yordy Allen Work Phone: [facility] Internal Medicine Work Phone: Start: 05-10-2023 Non-patient / Non-visit Dr. Rylee Allen Work Phone: [facility] Work Phone: Start: 04-16-2023 Non-patient / Non-visit Dr. Rylee Allen Work Phone: [facility] Start: 04-16-2023 End: 04-16-[address] Yordy Allen Work Phone: [facility] Work Phone: Start: 04-16-2023 End: 04-16-[address] Yordy Allen Work Phone: [facility]Cardiov[facility] Work Phone: Start: 04-14-2023 End: 04-14-[address] Yordy Allen Work Phone: [facility] Work Phone: Start: 04-14-2023 End: 04-14-[address] Yordy Allen Work Phone: [facility] Work Phone: Start: 03-29-2023 Telephone encounter Santino Phan MD Work Phone: Endocrinology Comment on above: Appointment Start: 03-22-2023 Telephone encounter Yordy momin MD Work Phone: [facility] Comment on above: Anticoagulation Start: 03-04-2023 ambulatory Yordy hidalog MD Work Phone: [facility] Comment on above: Warfarin Start: 02-16-2023 ambulatory Yordy hidalgo MD Work Phone: [facility] Comment on above: Warfarin Start: 02-15-2023 End: 02-16-2023 ambulatory YORDY ALLEN Facility:[facility] Start: 02-15-2023 End: 02-15-[address] Yordy Allen Work Phone: [facility] Medicine [facility] Work Phone: Start: 02-11-2023 ambulatory Yordy hidalgo MD Work Phone: [facility] Comment on above: Sugar test Start: 01-18-2023 Telephone encounter Yordy momin MD Work Phone: [facility] Comment on above: Anticoagulation Start: 01-12-2023 Telephone encounter Yordy momin MD Work Phone: [facility] Comment on above: Anticoagulation Start: 01-07-2023 ambulatory Waylon Higgins [facility] [place] Comment on above: Population Health Na [facility] Out[facility] (HCC GAP) Start: 12-21-2022 Telephone encounter Oneyda Guy MD Work Phone: Cardiology Comment on above: Patient Update (Skylar ent called states she is transferring care to [facility] and wants records transfer to that location. Please call her at [phone]) Start: 12-16-2022 ambulatory Santino Phan MD Work Phone: Endocrinology Comment on above: Thyroid function emmett liu Start: 12-16-2022 E-mail encounter fro m caregiver Santino Phan MD Work Phone: [facility] Start: 12-15-2022 End: 12-16-2022 ambulatory SANTINO PHAN Facility:[facility] Start: 12-15-2022 End: 12-15-2022 Office outpatient visit 15 minutes Santino Phan MD Work Phone: Endocrinology Comment on above: Graves disease (Prim miriam Dx) Start: 12-08-2022 ambulatory [facility] [place] Comment on above: INR Start: 12-08-2022 E-mail encounter fro m caregiver [facility] Start: 12-08-2022 Telephone encounter Yordy momin MD Work Phone: [facility] [place] Comment on above: Anticoagulation Start: 12-07-2022 ambulatory Yordy hidalgo MD Work Phone: [facility] [place] Comment on above: Prescription Start: 11-18-2022 Telephone encounter Yordy momin MD Work Phone: [facility] [place] Comment on above: Opened In Error Start: 11-17-2022 Telephone encounter Yordy momin MD Work Phone: [facility] [place] Comment on above: Anticoagulation (/) Start: 11-09-2022 Telephone encounter Yordy momin MD Work Phone: [facility] [place] Comment on above: Anticoagulation Start: 11-02-2022 Telephone encounter Yordy momin MD Work Phone: [facility] [place] Comment on above: Anticoagulation Start: 10-30-2022 End: 10-30-[address] Yordy Allen Work Phone: [facility] Work Phone: Start: 10-30-2022 End: 10-30-[address] Yordy Allen Work Phone: [facility] Start: 10-14-2022 ambulatory Santino Phan MD Work Phone: Endocrinology Comment on above: Thyroid function loo ks good and normal Start: 10-14-2022 E-mail encounter chandan m caregiver Santino Phan MD Work Phone: [facility] Start: 10-13-2022 Telephone encounter Yordy momin MD Work Phone: [facility] [place] Comment on above: Anticoagulation Start: 10-12-2022 ambulatory Santino Phan MD Work Phone: Endocrinology Comment on above: Bloodwork Start: 10-09-2022 End: 10-09-2022 Patient encounter procedure Abdullahi Sheldon PA-C Work Phone: Cardiology Comment on above: Paroxysmal atrial fi brillation (HCC); Persistent atrial fibrillation (HCC) Start: 10-07-2022 End: 10-07-[address] [facility] Start: 10-07-2022 Non-patient / Non-visit Dr. Rylee Allen Work Phone: [facility] Start: 10-06-2022 End: 10-06-[address] Yordy Allen Work Phone: [facility] Start: 10-05-2022 End: 10-05-[address] Yordy Allen Work Phone: [facility] Work Phone: Start: 10-05-2022 End: 10-05-[address] Yordy Allen Work Phone: [facility] Services/Neurology Start: 09-29-2022 Non-patient / Non-visit Dr. Rylee Allen Work Phone: [facility] Start: 09-29-2022 End: 09-29-[address] Yordy Allen Work Phone: [facility] Work Phone: Start: 09-29-2022 End: 09-29-[address] Yordy Allen Work Phone: [facility] Lab Start: 09-28-2022 Telephone encounter Yordy momin MD Work Phone: [facility] Comment on above: Anticoagulation Start: 09-22-2022 Non-patient / Non-visit Dr. Rylee Allen Work Phone: [facility] Start: 09-22-2022 Non-patient / Non-visit Dr. Rylee Allen Work Phone: [facility] Start: 09-21-2022 Non-patient / Non-visit Dr. Rylee Allen Work Phone: [facility] Start: 09-21-2022 Non-patient / Non-visit Dr. Rylee Allen Work Phone: [facility] Start: 09-20-2022 End: 09-22-2022 Evaluation and management of inpatient SHEEP CLIPPER-C Jessika Bauer SHEEP CLIPPER Work Phone: [facility]Progressive Care Unit Start: 09-18-2022 Telephone encounter Yordy momin MD Work Phone: [facility] Comment on above: Anticoagulation Start: 09-17-2022 Telephone encounter Yordy momin MD Work Phone: [facility] Comment on above: Anticoagulation Start: 09-16-2022 ambulatory Johnson Duval RN Work Phone: [employer] Comment on above: cdm (enrollment) Start: 09-15-2022 Refill Oneyda sharpe MD Work Phone: Cardiology Comment on above: Opened In Error Start: 09-09-2022 Refill Yordy hidalgo MD Work Phone: [facility] Comment on above: Refill Request Warfarin Start: 09-08-2022 ambulatory Yordy hidalgo MD Work Phone: [facility] Comment on above: Question regarding B ASIC METABOLIC PNL Start: 09-08-2022 Telephone encounter Yordy momin MD Work Phone: [facility] Comment on above: Anticoagulation Start: 09-03-2022 ambulatory Gilles RUDD RN.SADDLE STITCHER Work Phone: [facility] Comment on above: Warfarin Start: 09-01-2022 Follow-up encounter Oneyda Guy MD Work Phone: [facility] Start: 09-01-2022 ICD Remote F/U Oneyda sharpe MD Work Phone: [facility] Start: 08-27-2022 End: 08-27-2022 ambulatory SHEEP CLIPPER-C Jessika Bauer SHEEP CLIPPER Work Phone: [facility] Work Phone: Start: 08-27-2022 End: 08-27-2022 Patient encounter procedure SHEEP CLIPPER-Binta Bauer NP Work Phone: [facility]Sleep Lab Start: 08-20-2022 ambulatory Yordy hidalgo MD Work Phone: [facility] [place] Start: 08-17-2022 ambulatory Santino Phan MD Work Phone: Endocrinology Comment on above: Reminder for blood d raw Start: 08-17-2022 E-mail encounter chandan m caregiver Santino Phan MD Work Phone: [facility] Start: 08-17-2022 End: 08-17-2022 Emergency department patient visit SHEEP CLIPPER-C Jessika Bauer SHEEP CLIPPER Work Phone: [facility]Emergency Department Start: 08-14-2022 ambulatory Santino Phan MD Work Phone: Endocrinology Comment on above: Thyroid function loo ks good and is normal Start: 08-14-2022 E-mail encounter chandan nance caregiver Santino Phan MD Work Phone: [facility] Start: 08-13-2022 End: 08-13-2022 ambulatory SHEEP CLIPPER-Binta Bauer SHEEP CLIPPER Work Phone: [facility] Work Phone: Start: 08-13-2022 End: 08-13-2022 Patient encounter procedure SHEEP CLIPPER-Binta Bauer SHEEP CLIPPER [facility] Start: 08-04-2022 Telephone encounter Yordy momin MD Work Phone: [facility] Comment on above: Anticoagulation Start: 07-28-2022 Follow-up encounter Oneyda Guy MD Work Phone: [facility] Start: 07-28-2022 End: 07-28-2022 Patient encounter procedure Oneyda Guy MD Work Phone: [facility] Comment on above: AICD (automatic card ioverter/defibrillator) present (Primary Dx); Paroxysmal atrial fibrillation (HCC); Hypertrophic cardiomyopathy (HCC); VT (ventricular tachycardia); Atrial tachycardia (HCC) Start: 07-23-2022 End: 07-23-2022 ambulatory SHEEP CLIPPER-Binta Bauer SHEEP CLIPPER Work Phone: [facility] Work Phone: Start: 07-23-2022 End: 07-23-2022 Patient encounter procedure SHEEP CLIPPER-Binta Bauer SHEEP CLIPPER [facility] Start: 07-21-2022 Telephone encounter Yordy momin MD Work Phone: [facility] Comment on above: Anticoagulation Start: 07-13-2022 Telephone encounter Byron Michele Arie walker DO Work Phone: [facility] Comment on above: Anticoagulation Start: 07-08-2022 End: 07-08-2022 Patient encounter procedure SHEEP CLIPPER-C Jessika Bauer NP Work Phone: [facility] Start: 07-08-2022 Telephone encounter Oneyda Guy MD Work Phone: Cardiology Comment on above: Patient Question (Go t a call requesting permission to do additional studies on patient suffering from severe sleep apnea) Start: 06-29-2022 Telephone encounter Yordy momin MD Work Phone: [facility] Comment on above: Anticoagulation Start: 06-24-2022 End: 06-24-2022 ambulatory [facility] Work Phone: Start: 06-24-2022 End: 06-24-2022 Patient encounter procedure [facility] Start: 06-22-2022 Telephone encounter Star Saba MD Work Phone: [facility] Comment on above: Anticoagulation Start: 06-19-2022 End: 06-19-2022 ambulatory YORDY Delgado [facility] Facility:[facility] Start: 06-15-2022 Telephone encounter Wale Garcia MD Work Phone: [facility] Comment on above: Anticoagulation Start: 06-09-2022 ambulatory Santino Phan MD Work Phone: Endocrinology Comment on above: Reminder for blood d raw Start: 06-09-2022 E-mail encounter fro m caregiver Santino Phan MD Work Phone: [facility] Start: 06-02-2022 Follow-up encounter Oneyda Guy MD Work Phone: [facility] Start: 06-02-2022 ICD Remote F/U Oneyda sharpe MD Work Phone: [facility] Start: 06-02-2022 Telephone encounter Santino Phan MD Work Phone: Endocrinology Comment on above: Appointment (Asking to change appt time) Appointment Start: 06-01-2022 Telephone encounter Yordy momin MD Work Phone: [facility] Comment on above: Anticoagulation Start: 05-30-2022 Telephone encounter Nurse [employer] Attendant [employer] Comment on above: Follow Up Phone Call ([facility] follow up call Third attempt) Start: 05-26-2022 Telephone encounter Bhargav Boyer MD Work Phone: [facility] Comment on above: Anticoagulation Start: 05-21-2022 Telephone encounter Oneyda Guy MD Work Phone: Provider Adult Comment on above: Schedule Surgery Start: 05-15-2022 Patient Outreach Bernadette Diop RN [employer] Comment on above: Transition Of Care ( initial encounter post hospital discharge 05/14/22) Start: 05-11-2022 End: 05-14-2022 Evaluation and management of inpatient YORDY Delgado [facility] Facility:[facility] Start: 04-13-2022 Telephone encounter Yordy momin MD Work Phone: [facility] [place] Comment on above: Anticoagulation Start: 04-09-2022 Telephone encounter Yordy momin MD Work Phone: [facility] [place] Comment on above: Anticoagulation Start: 03-30-2022 Refill Oneyda sharpe MD Work Phone: Cardiology Comment on above: Refill Request Start: 03-30-2022 End: 03-30-2022 Evaluation and management of inpatient GERRY LEYVA MD Facility:[facility] Start: 03-23-2022 Admission to establishment Oneyda Guy MD Work Phone: Cardiology Comment on above: Soltalol admission Start: 03-23-2022 ambulatory Oneyda hsarpe MD Work Phone: [facility] Start: 03-05-2022 Telephone encounter Oneyda Guy MD Work Phone: Cardiology Comment on above: Patient Question (re mote monitoring) Start: 02-19-2022 ambulatory Rodney Castro MD Work Phone: Endocrinology Comment on above: Labs Start: 02-17-2022 Telephone encounter Yordy momin MD Work Phone: [facility] [place] Comment on above: Anticoagulation Start: 02-11-2022 Follow-up encounter Oneyda Guy MD Work Phone: [facility] Start: 02-11-2022 End: 02-11-2022 Patient encounter procedure Oneyda Guy MD Work Phone: [facility] Department Comment on above: Hypertrophic cardiom yopathy (HCC) (Primary Dx); VT (ventricular tachycardia) (HCC); Atrial tachycardia (HCC); Chronic systolic congestive heart failure (HCC); AICD (automatic cardioverter/defibrillator) present Start: 02-02-2022 Telephone encounter Yordy momin MD Work Phone: [facility] [place] Comment on above: Anticoagulation Start: 01-20-2022 ambulatory Brisa Sexton R N Work Phone: [employer] Comment on above: community monitoring outreach (Insight introduction) community monitoring outreach (Insight introduciton) Start: 01-19-2022 Telephone encounter Yordy momin MD Work Phone: [facility] [place] Comment on above: Anticoagulation Start: 01-18-2022 ambulatory Yordy hidalgo MD Work Phone: [facility] [place] Comment on above: Prantoprazole Start: 01-16-2022 Refill Oneyda sharpe MD Work Phone: Cardiology Comment on above: Refill Request Start: 01-15-2022 ambulatory Brisa Sexton R N Work Phone: [employer] Comment on above: community monitoring outreach (Insight introduction) Start: 01-14-2022 Telephone encounter Yordy momin MD Work Phone: [facility] [place] Comment on above: Anticoagulation Start: 01-08-2022 End: 01-09-2022 [facility] Start: 01-07-2022 Telephone encounter Yordy momin MD Work Phone: [facility] [place] Comment on above: Anticoagulation Start: 12-24-2021 Telephone encounter Oneyda Guy MD Work Phone: Cardiology Comment on above: Schedule Surgery Start: 12-23-2021 End: 12-23-2021 Patient encounter procedure Oneyda Guy MD Work Phone: Cardiology Comment on above: Chronic systolic con gestive heart failure (HCC) (Primary Dx); Hypertrophic cardiomyopathy (HCC); VT (ventricular tachycardia) (HCC); Atrial tachycardia (HCC) Start: 12-22-2021 Telephone encounter Yordy momin MD Work Phone: [facility] Comment on above: Anticoagulation Start: 12-19-2021 Orders Only Tavo Islas MD Work Phone: Ambulatory Surgery Comment on above: Chronic gastric ulce r without hemorrhage and without perforation (Primary Dx) EGD reschedule at Start: 12-10-2021 ambulatory Rodney Castro MD Work Phone: Endocrinology Comment on above: Thyroid Start: 12-10-2021 E-mail encounter fro m caregiver Rodney Castro MD Work Phone: [facility] Start: 12-07-2021 Telephone encounter Oneyda Guy MD Work Phone: Cardiology Comment on above: Patient Update Start: 10-07-2021 End: 10-07-2021 Evaluation and management of inpatient WENHAI VALDIVIA Facility:[facility] Start: 10-03-2021 End: 10-03-2021 Evaluation and management of inpatient TAVO ISLAS Facility:[facility] Start: 10-01-2021 End: 10-07-2021 Evaluation and management of inpatient WENHAI VALDIVIA Facility:[facility] Start: 09-16-2021 End: 09-16-2021 Evaluation and management of inpatient BECKY N SEKOU Facility:[facility] Start: 09-13-2021 End: 09-17-2021 Evaluation and management of inpatient JARED PETER Facility:[facility] Start: 09-16-2018 Patient encounter procedure Nyasia Nolasco Facility:[id number] Start: 08-08-2018 Patient encounter procedure Nubia Ruiz [facility] Start: 08-01-2018 Patient encounter procedure Nubia Ruiz [facility] Start: 05-09-2018 Patient encounter procedure Oneyda Hannah Sparano [facility] Start: 05-05-2018 Patient encounter procedure Oneyda Hannah Sparano [facility] Start: 02-08-2018 Patient encounter procedure Oneyda Hannah Sparano [facility] Start: 01-31-2018 End: 02-03-2018 Evaluation and management of inpatient Oneyda Hannah Sparano Facility:[facility] Start: 01-27-2018 End: 01-28-2018 Ambulatory MD GUY Facility:[facility] Start: 01-19-2018 Patient encounter procedure Oneyda Hannah Sparano [facility] Start: 01-17-2018 Patient encounter procedure Oneyda Hannah Sparano [facility] Start: 01-06-2018 Patient encounter procedure Oneyda Hannah Sparano [facility] Start: 12-03-2017 End: 12-03-2017 Ambulatory Oneyda Hannah Sparano Facility:[facility] Start: 12-02-2017 End: 12-03-2017 Ambulatory ONEYDA GUY Facility:[facility] Start: 11-30-2017 End: 12-01-2017 Ambulatory MD BRITO Facility:[facility] Start: 11-26-2017 End: 11-27-2017 Ambulatory Dane Gant Facility:[facility] Start: 11-23-2017 End: 11-24-2017 Ambulatory YENIFER SEGOVIA Facility:[facility] Start: 11-22-2017 End: 11-22-2017 Ambulatory Oneyda Hannah Sparano Facility:[facility] Start: 10-13-2017 Ambulatory Oneyda Hannah Sparano Faci lity:[id number] Procedures Date Procedure Procedure Detail Performing Clinician Start: 02-08-2025 X-ray of chest, PA a nd lateral views Dr. Roseline Barakat MD Work Phone: Start: 01-26-[address] Roseline Barakat MD Work Phone: Start: 01-25-2025 CT angiography of he ad and neck Dr. Roseline Barakat MD Work Phone: Start: 01-25-2025 CT of head without contrast Dr. Roseline Barakat MD Work Phone: Start: 01-25-[address] Roseline Barakat MD Work Phone: Start: 10-19-2024 Vitamin D, 25-hydrox y measurement Dr. Roseline Barakat MD Work Phone: Comment on above: Vitamin D 25(OH) Sta tus Range Deficiency <20 ng/mL (50nmol/L) Insufficiency 20 - 30 ng/mL (50 - 75 nmol/L) Sufficiency 30 - 100 ng/mL (75 - 250 nmol/L) Toxicity >100 ng/mL (>250 nmol/L) Start: 09-14-2024 US scan of thyroid Dr. Roseline Barakat MD Work Phone: Start: 09-02-2023 Screening mammography Danny Allen Work Phone: Start: 04-14-2023 Plain chest X-ray Dr. Graciela Allen Work Phone: Start: 03-22-2023 PROTHROMBIN TIME/PT [facility] Provider Start: 01-18-2023 PROTHROMBIN TIME/PT [facility] Provider Start: 01-12-2023 PROTHROMBIN TIME/PT Sarah Allen MD Work Phone: Start: 12-08-2022 PROTHROMBIN TIME/PT [facility] Provider Start: 11-16-2022 PROTHROMBIN TIME/PT [facility] Provider Start: 11-09-2022 PROTHROMBIN TIME/PT Sarah Allen MD Work Phone: Start: 11-02-2022 PROTHROMBIN TIME/PT [facility] Provider Start: 10-12-2022 PROTHROMBIN TIME/PT [facility] Provider Start: 10-09-2022 Ecg routine ecg w/le ast 12 lds i&r only [facility] Provider Start: 09-28-2022 PROTHROMBIN TIME/PT [facility] Provider Start: 09-22-2022 Cardiovascular stres s test using pharmacologic stress agent Dr. Yordy Allen Work Phone: Start: 09-20-2022 CT angiography of ch est with contrast [employer]EP [employer]IP[employer]-C Jessika Bauer SHEEP CLIPPER Work Phone: Start: 09-20-2022 Plain chest X-ray [facility] [employer]IP[facility]-C Jessika Bauer SHEEP CLIPPER Work Phone: Start: 09-18-2022 PROTHROMBIN TIME/PT Sarah Allen MD Work Phone: Start: 09-15-2022 PROTHROMBIN TIME/PT [facility] Provider Start: 09-01-2022 ICD REMOTE CHECK Oneyda Guy MD Work Phone: Start: 08-17-2022 CT angiography of ch est with contrast SHEEP CLIPPER-C Jessika Bauer SHEEP CLIPPER Work Phone: Start: 08-17-2022 Plain X-ray of clavicle [employer]EP CLIPPER-C Jessika Bauer SHEEP CLIPPER Work Phone: Start: 08-17-2022 Plain X-ray of shoulder [employer]EP CLIPPER-C Jessika Bauer SHEEP CLIPPER Work Phone: Start: 08-17-2022 X-ray of chest posteroanterior view [employer]IP[employer]-C Jessika Bauer SHEEP CLIPPER Work Phone: Start: 08-03-2022 PROTHROMBIN TIME/PT [facility] Provider Start: 07-28-2022 ICD CLINIC CHECK Oneyda Guy MD Work Phone: Start: 07-21-2022 PROTHROMBIN TIME/PT [facility] Provider Start: 07-13-2022 PROTHROMBIN TIME/PT [facility] Provider Start: 06-22-2022 PROTHROMBIN TIME/PT [facility] Provider Start: 06-15-2022 PROTHROMBIN TIME/PT [facility] Provider Start: 06-02-2022 ICD REMOTE CHECK Oneyda Guy MD Work Phone: Start: 09-19-2022 PROTHROMBIN TIME/PT [facility] Provider Start: 05-26-2022 PROTHROMBIN TIME/PT [facility] Provider Start: 04-13-2022 PROTHROMBIN TIME/PT [facility] Provider Start: 04-08-2022 PROTHROMBIN TIME/PT Mar carl Allen MD Work Phone: Start: 02-17-2022 PROTHROMBIN TIME/PT [facility] Provider Start: 02-11-2022 ICD CLINIC CHECK Oneyda Guy MD Work Phone: Start: 02-01-2022 PROTHROMBIN TIME/PT [facility] Provider Start: 01-19-2022 PROTHROMBIN TIME/PT [facility] Provider Start: 01-07-2022 PROTHROMBIN TIME/PT [facility] Provider Start: 10-01-2021 Antibody screen YORDY LONG Start: 08-21-2021 PROTHROMBIN TIME/PT [facility] Provider Start: 07-14-2021 Mammography Rodney flannery MD Work Phone: Start: 01-20-2021 Lipid 1996 panel - S anne marie or Plasma Yordy Allen MD Work Phone: Start: 01-14-2021 Adult depression scr eening assessment Rodney Castro MD Work Phone: Start: 08-05-2020 Colonoscopy Rodney flannery MD Work Phone: Start: 05-09-2018 Follow-up visit Start: 12-03-2017 Anes integ sys elec conversion arrhythmias Oneyda Guy Plan of Treatment Date Care Activity Detail Author Start: 08-05-2030 Colonoscopy COLONOSCOPY [facility] Start: 08-05-2030 COLORECTAL CANCER SCREENING COLORECTAL CANCER SCREENING [facility] Start: 08-05-2030 Screening for malignant neoplasm of colon [facility] Start: 02-15-2026 DIABETES SCREEN DIABETES SCREEN [facility] Start: 02-15-2026 Diabetes Screening Diabetes Screening [facility] Start: 01-20-2026 Lipid 1996 panel - Serum or Plasma Lipid Screening [facility] Start: 01-20-2026 Lipid panel Lipid Screening [facility] Start: 01-20-2026 LIPID SCREEN LIPID SCREEN [facility] Start: 09-08-2025 DIABETES SCREEN DIABETES SCREEN [facility] Start: 05-14-2025 DIABETES SCREEN DIABETES SCREEN [facility] Start: 03-30-2025 DIABETES SCREEN DIABETES SCREEN [facility] Start: 03-06-2025 Basic metabolic 2008 panel with ionized calcium - Serum or Plasma [facility] Start: 03-06-2025 CBC W Auto Differential panel - Blood [facility] Start: 03-06-2025 Natriuretic peptide.B prohormone N-Terminal [Mass/volume] in Serum or Plasma [facility] Start: 02-22-2025 [facility] Start: 02-19-2025 DIABETES SCREEN DIABETES SCREEN [facility] Start: 02-08-2025 X-ray of chest, PA and lateral views Chest PA and Lateral [facility] Start: 01-26-2025 Patient discharge [facility] Start: 01-26-2025 CT of head without contrast Brain/Head without Contrast [facility] Start: 01-26-2025 Electrocardiographic procedure [facility] Start: 01-26-2025 Prothrombin time [facility] Start: 01-26-2025 Thyroid stimulating hormone measurement [facility] Start: 01-25-2025 Aspiration precautions [facility] Start: 01-25-2025 Assessment of risk of venous thromboembolism [facility] Start: 01-25-2025 Cardiac monitoring [facility] Start: 01-25-2025 Catheterization of vein [facility] Start: 01-25-2025 Consultation [facility] Start: 01-25-2025 Continuous positive airway pressure ventilation treatment [facility] Start: 01-25-2025 Continuous pulse oximetry [facility] Start: 01-25-2025 Elevation of head of bed [facility] Start: 01-25-2025 Exercises [facility] Start: 01-25-2025 Fall prevention [facility] Start: 01-25-2025 Incentive spirometry [facility] Start: 01-25-2025 Inhalation therapy procedure [facility] Start: 01-25-2025 Insertion of catheter into peripheral vein [facility] Start: 01-25-2025 Introduction of urinary catheter [facility] Start: 01-25-2025 Measuring intake and output [facility] Start: 01-25-2025 Notification of physician [facility] Start: 01-25-2025 Oxygen therapy [facility] Start: 01-25-2025 Patient referral to dietitian [facility] Start: 01-25-2025 Providing care according to standard [facility] Start: 01-25-2025 Provision of activity privileges [facility] Start: 01-25-2025 Referral to occupational therapist [facility] Start: 01-25-2025 Referral to service [facility] Start: 01-25-2025 Speech therapy assessment [facility] Start: 01-25-2025 Telemedicine consultation with patient [facility] Start: 01-25-2025 Tobacco use cessation education [facility] Start: 01-25-2025 End: 01-25-2025 [facility] Start: 01-25-2025 Following clinical pathway protocol [facility] Start: 01-25-2025 Transfusion of blood product [facility] Start: 01-25-2025 [facility] Start: 01-25-2025 Verification routine [facility] Start: 01-25-2025 Hospital admission, emergency, from emergency room, medical nature [facility] Start: 01-25-2025 Admission procedure [facility] Start: 01-25-2025 Oxygen therapy [facility] Start: 01-25-2025 [facility] Start: 01-25-2025 Patient referral to dietitian [facility] Start: 01-08-2025 DIABETES SCREEN DIABETES SCREEN [facility] Start: 10-30-2024 DIABETES SCREEN DIABETES SCREEN [facility] Start: 02-16-2024 Creatinine measurement Serum Creatinine [facility] Start: 02-16-2024 SERUM CREATININE SERUM CREATININE [facility] Start: 12-16-2023 BP CONTROLLED (<130/80) BP CONTROLLED (<130/80) [facility] Start: 10-09-2023 BP CONTROLLED (<130/80) BP CONTROLLED (<130/80) [facility] Start: 09-13-2023 Advance Directive Discussion Advance Directive Discussion [facility] Start: 09-13-2023 Depression Assessment Depression Assessment [facility] Start: 09-08-2023 SERUM CREATININE SERUM CREATININE [facility] Start: 06-17-2023 End: 08-17-2023 Thyrotropin [Units/volume] in Serum or Plasma TSH BLD Lab Routine Graves disease Expected: 06/17/2023 (Approximate), Expires: 08/17/2023 [facility] Work Phone: Comment on above: Expected: 06/17/2023 (Approximate), Expi res: 08/17/2023 Start: 06-17-2023 End: 08-17-2023 Thyroxine (T4) free [Mass/volume] in Serum or Plasma T4 FREE/FREE THYROX Lab Routine Graves disease Expected: 06/17/2023 (Approximate), Expires: 08/17/2023 [facility] Work Phone: Comment on above: Expected: 06/17/2023 (Approximate), Expi res: 08/17/2023 Start: 06-08-2023 ANNUAL PCP TEAM CHRONIC DISEASE VISIT ANNUAL PCP TEAM CHRONIC DISEASE VISIT [facility] Start: 06-08-2023 BP CONTROLLED (<130/80) BP CONTROLLED (<130/80) [facility] Start: 05-20-2023 Patient referral [facility] Work Phone: Start: 05-14-2023 Complete blood count Hemoglobin/Hematocrit [facility] Start: 05-14-2023 HEMOGLOBIN/HEMATOCRIT HEMOGLOBIN/HEMATOCRIT [facility] Start: 05-14-2023 Influenza vaccination [facility] Start: 05-14-2023 SERUM CREATININE SERUM CREATININE [facility] Start: 03-30-2023 HEMOGLOBIN/HEMATOCRIT HEMOGLOBIN/HEMATOCRIT [facility] Start: 03-30-2023 SERUM CREATININE SERUM CREATININE [facility] Start: 02-19-2023 HEMOGLOBIN/HEMATOCRIT HEMOGLOBIN/HEMATOCRIT [facility] Start: 02-19-2023 SERUM CREATININE SERUM CREATININE [facility] Start: 02-15-2023 Patient referral [facility] Work Phone: Start: 02-11-2023 BP CONTROLLED (<130/80) BP CONTROLLED (<130/80) [facility] Start: 02-11-2023 End: 04-13-2023 Comprehensive metabolic 2000 panel - Serum or Plasma COMP METABOLIC PANEL Lab Routine Elevated glucose Expected: 02/11/2023 (Approximate), Expires: 04/13/2023 [facility] Work Phone: Comment on above: Expected: 02/11/2023 (Approximate), Expi res: 04/13/2023 Start: 02-11-2023 End: 04-13-2023 Hemoglobin A1c in Blood HGB A1C Lab Routine Elevated glucose Expected: 02/11/2023, Expires: 04/13/2023 [facility] Work Phone: Comment on above: Expected: 02/11/2023, Expires: Start: 01-11-2023 End: 03-13-2023 Thyrotropin [Units/volume] in Serum or Plasma TSH BLD Lab Routine Graves disease Expected: 01/11/2023 (Approximate), Expires: 03/13/2023 [facility] Work Phone: Comment on above: Expected: 01/11/2023 (Approximate), Expi res: 03/13/2023 Start: 01-11-2023 End: 03-13-2023 Thyroxine (T4) free [Mass/volume] in Serum or Plasma T4 FREE/FREE THYROX Lab Routine Graves disease Expected: 01/11/2023 (Approximate), Expires: 03/13/2023 [facility] Work Phone: Comment on above: Expected: 01/11/2023 (Approximate), Expi res: 03/13/2023 Start: 01-11-2023 End: 03-13-2023 Triiodothyronine (T3) Free [Mass/volume] in Serum or Plasma T3 FREE BLD Lab Routine Graves disease Expected: 01/11/2023 (Approximate), Expires: 03/13/2023 [facility] Work Phone: Comment on above: Expected: 01/11/2023 (Approximate), Expi res: 03/13/2023 Start: 01-08-2023 HEMOGLOBIN/HEMATOCRIT HEMOGLOBIN/HEMATOCRIT [facility] Start: 01-08-2023 SERUM CREATININE SERUM CREATININE [facility] Start: 12-23-2022 BP CONTROLLED (<130/80) BP CONTROLLED (<130/80) [facility] in Start: 11-26-2022 BP CONTROLLED (<130/80) BP CONTROLLED (<130/80) [facility] in Start: 11-15-2022 End: 01-15-2023 Thyrotropin [Units/volume] in Serum or Plasma TSH BLD Lab Routine Graves disease Expected: 11/15/2022, Expires: 01/15/2023 [facility] Work Phone: Comment on above: Expected: 11/15/2022, Expires: 3 Start: 10-30-2022 HEMOGLOBIN/HEMATOCRIT HEMOGLOBIN/HEMATOCRIT [facility] Start: 10-30-2022 SERUM CREATININE SERUM CREATININE [facility] Start: 10-12-2022 End: 12-12-2022 Thyrotropin [Units/volume] in Serum or Plasma TSH BLD Lab Routine Hyperthyroidism Expected: 10/12/2022, Expires: 12/12/2022 [facility] Work Phone: Comment on above: Expected: 10/12/2022, Expires: 3 Start: 10-12-2022 End: 12-12-2022 Thyroxine (T4) free [Mass/volume] in Serum or Plasma T4 FREE/FREE THYROX Lab Routine Hyperthyroidism Expected: 10/12/2022, Expires: 12/12/2022 [facility] Work Phone: Comment on above: Expected: 10/12/2022, Expires: Start: 10-12-2022 End: 12-12-2022 Triiodothyronine (T3) Free [Mass/volume] in Serum or Plasma T3 FREE BLD Lab Routine Hyperthyroidism Expected: 10/12/2022, Expires: 12/12/2022 [facility] Work Phone: Comment on above: Expected: 10/12/2022, Expires: 3 Start: 10-10-2022 ANNUAL PCP TEAM CHRONIC DISEASE VISIT ANNUAL PCP TEAM CHRONIC DISEASE VISIT [facility] Start: 10-09-2022 End: 12-09-2022 Basic metabolic 2000 panel - Serum or Plasma BASIC METABOLIC PNL Lab Routine Persistent atrial fibrillation (HCC) Expected: 10/09/2022, Expires: 12/09/2022 [facility] Work Phone: Comment on above: Expected: 10/09/2022, Expires: 3 Start: 10-09-2022 End: 12-09-2022 CBC panel - Blood by Automated count CBC Lab Routine Persistent atrial fibrillation (HCC) Expected: 10/09/2022, Expires: 12/09/2022 [facility] Work Phone: Comment on above: Expected: 10/09/2022, Expires: Start: 09-24-2022 Prothrombin time [facility] Work Phone: Start: 09-23-2022 Prothrombin time [facility] Work Phone: Start: 09-22-2022 Patient discharge [facility] Start: 09-22-2022 [facility] Start: 09-22-2022 Prothrombin time [facility] Work Phone: Start: 09-22-2022 Inhalation therapy procedure [facility] Start: 09-21-2022 Patient referral [facility] Work Phone: Start: 09-21-2022 Prothrombin time [facility] Work Phone: Start: 09-21-2022 Thyroid stimulating hormone measurement [facility] Work Phone: Start: 09-21-2022 [facility] Work Phone: Start: 09-21-2022 Following clinical pathway protocol [facility] Start: 09-20-2022 Troponin I measurement [facility] Work Phone: Start: 09-20-2022 Application of elastic bandage [facility] Start: 09-20-2022 Assessment of risk of venous thromboembolism [facility] Start: 09-20-2022 Elevation of affected extremity [facility] Start: 09-20-2022 Insertion of catheter into peripheral vein [facility] Start: 09-20-2022 Measuring intake and output [facility] Start: 09-20-2022 Notification of physician [facility] Start: 09-20-2022 Oxygen therapy [facility] Start: 09-20-2022 Patient education [facility] Start: 09-20-2022 Providing care according to standard [facility] Start: 09-20-2022 Provision of activity privileges [facility] Start: 09-20-2022 Referral to wood coater [facility] Start: 09-20-2022 Referral to service [facility] Start: 09-20-2022 [facility] Start: 09-20-2022 Verification routine [facility] Work Phone: Start: 09-20-2022 Admission procedure [facility] Start: 09-20-2022 Patient referral to dietitian [facility] Start: 09-13-2022 ADVANCE DIRECTIVE DISCUSSION ADVANCE DIRECTIVE DISCUSSION [facility] Start: 09-13-2022 DEPRESSION ASSESSMENT DEPRESSION ASSESSMENT [facility] Start: 07-14-2022 Mammography [facility] Start: 07-14-2022 Screening for malignant neoplasm of breast Mammogram Screening [facility] Start: 07-09-2022 End: 09-08-2022 Thyrotropin [Units/volume] in Serum or Plasma TSH BLD Lab Routine Graves disease Expected: 07/09/2022, Expires: 09/08/2022 [facility] Work Phone: Comment on above: Expected: 07/09/2022, Expires: 2 Start: 06-03-2022 PNEUMOVAX AGE 65 AND OVER WITH 5YR LOOKBACK (#1) PNEUMOVAX AGE 65 AND OVER WITH 5YR LOOKBACK (#1) [facility] Start: 05-14-2022 Influenza vaccination [facility] Start: 03-12-2022 Influenza vaccination INFLUENZA (#1) [facility] Comment on above: Postponed from 05/14/2021 (Declined at t his time) Start: 01-14-2022 Adult depression screening assessment DEPRESSION SCREENING [facility] Start: 01-10-2022 End: 03-12-2022 T3 FREE BLD T3 FREE BLD Lab Routine Hyperthyroidism Expected: 01/10/2022, Expires: 03/12/2022 [facility] Work Phone: Comment on above: Expected: 01/10/2022, Expires: 2 Start: 01-10-2022 End: 03-12-2022 T4 FREE/FREE THYROX T4 FREE/FREE THYROX Lab Routine Hyperthyroidism Expected: 01/10/2022, Expires: 03/12/2022 [facility] Work Phone: Comment on above: Expected: 01/10/2022, Expires: 2 Start: 01-10-2022 End: 03-12-2022 Thyrotropin [Units/volume] in Serum or Plasma [facility] Work Phone: Comment on above: Expected: 01/10/2022, Expires: 2 Start: 09-13-2021 ADVANCE DIRECTIVE DISCUSSION ADVANCE DIRECTIVE DISCUSSION [facility] Start: 09-13-2021 DEPRESSION ASSESSMENT DEPRESSION ASSESSMENT [facility] Start: 06-03-2018 Pneumococcal Vaccine: 65+ (2 - PCV) Pneumococcal Vaccine: 65+ (2 - PCV) [facility] Start: 06-03-2018 Pneumococcal Vaccine: 65+ (2 of 2 - PCV) Pneumococcal Vaccine: 65+ (2 of 2 - PCV) [facility] Start: 06-03-2018 PNEUMOCOCCAL: 65+ (2 - PCV) PNEUMOCOCCAL: 65+ (2 - PCV) [facility] Start: 10-14-2015 SHINGRIX VACCINE (2 of 3) SHINGRIX VACCINE (2 of 3) [facility] Start: 2014 RSV Vaccine (1 - 1-dose 60+ series) RSV Vaccine (1 - 1-dose 60+ series) [facility] Start: 1999 COLOGUARD (FIT-DNA) COLOGUARD (FIT-DNA) [facility] Start: [address] COLONOGRAPHY [facility] Start: 1999 FECAL OCCULT BLOOD FECAL OCCULT BLOOD [facility] Start: 1999 Screening for malignant neoplasm of colon [facility] Start: 1999 SIGMOIDOSCOPY SIGMOIDOSCOPY [facility] Start: 1973 Urine microalbumin profile [facility] Start: 1972 BP CONTROLLED (<130/80) BP CONTROLLED (<130/80) [facility] Start: 1959 COVID-19 VACCINE (#1) COVID-19 VACCINE (#1) [facility] Start: 1959 COVID-19 VACCINE (1) COVID-19 VACCINE (1) [facility] Start: 04-01-1955 COVID-19 VACCINE (#1) COVID-19 VACCINE (#1) [facility] Alanine aminotransfe rase [Enzymatic activity/volume] in Serum or Plasma [facility] Work Phone: Alanine aminotransfe rase [Enzymatic activity/volume] in Serum or Plasma [facility] Alanine aminotransfe rase [Enzymatic activity/volume] in Serum or Plasma [facility] Albumin [Mass/volume ] in Serum or Plasma [facility] Work Phone: Albumin [Mass/volume ] in Serum or Plasma [facility] Albumin [Mass/volume ] in Serum or Plasma [facility] Alkaline phosphatase [Enzymatic activity/volume] in Serum or Plasma [facility] Work Phone: Alkaline phosphatase [Enzymatic activity/volume] in Serum or Plasma [facility] Alkaline phosphatase [Enzymatic activity/volume] in Serum or Plasma [facility] Anion gap in Serum or Plasma [facility] Anion gap in Serum or Plasma [facility] Anion gap in Serum or Plasma [facility] Anion gap measurement [facility] Work Phone: Aspartate aminotrans ferase [Enzymatic activity/volume] in Serum or Plasma [facility] Work Phone: Bilirubin, total measurement [facility] Work Phone: Bilirubin, total measurement [facility] Bilirubin, total measurement [facility] Blood chemistry [facility] BUN/Creatinine ratio [facility] Work Phone: BUN/Creatinine ratio [facility] BUN/Creatinine ratio [facility] BUN/Creatinine ratio [facility] Calcium [Mass/volume ] in Serum or Plasma [facility] Work Phone: Calcium [Mass/volume ] in Serum or Plasma [facility] Calcium [Mass/volume ] in Serum or Plasma [facility] Calcium [Mass/volume ] in Serum or Plasma [facility] Carbon dioxide, tota l [Moles/volume] in Central venous blood [facility] Carbon dioxide, tota l [Moles/volume] in Central venous blood [facility] Carbon dioxide, tota l [Moles/volume] in Central venous blood [facility] Carbon dioxide, tota l [Moles/volume] in Serum or Plasma [facility] Work Phone: Chloride [Moles/volu me] in Serum or Plasma [facility] Work Phone: Cholesterol [Mass/vo lume] in Serum or Plasma [facility] Cholesterol in HDL [Mass/volume] in Serum or Plasma [facility] Creatinine [Mass/vol ume] in Serum or Plasma [facility] Creatinine [Mass/vol ume] in Serum or Plasma [facility] Creatinine [Mass/vol ume] in Serum or Plasma [facility] Creatinine [Moles/vo lume] in Serum or Plasma [facility] Work Phone: End: 02-11-2023 ECG COMPLETE ECG COMPLETE ECG Routine Hypertrophic cardiomyopathy (HCC) VT (ventricular tachycardia) (HCC) Atrial tachycardia (HCC) Chronic systolic congestive heart failure (HCC) AICD (automatic cardioverter/defibrilla tor) present 1 Occurrences starting 02/11/2022 until 02/11/2023 [facility] Work Phone: Comment on above: 1 Occurrences starting 02/11/2022 until 02/11/2023 End: 07-28-2023 ECG COMPLETE ECG COMPLETE ECG Routine AICD (automatic cardioverter/defibrilla tor) present Paroxysmal atrial fibrillation (HCC) Hypertrophic cardiomyopathy (HCC) VT (ventricular tachycardia) Atrial tachycardia (HCC) 1 Occurrences starting 07/28/2022 until 07/28/2023 [facility] Work Phone: Comment on above: 1 Occurrences starting 07/28/2022 until 07/28/2023 End: 10-09-2023 ECG COMPLETE ECG COMPLETE ECG Routine Paroxysmal atrial fibrillation (HCC) 1 Occurrences starting 10/09/2022 until 10/09/2023 [facility] Work Phone: Comment on above: 1 Occurrences starting 10/09/2022 until 10/09/2023 ECG COMPLETE ECG COMPLETE ECG 10/09/2022 2:09 PM EST [facility] Ecg routine ecg w/le ast 12 lds w/i&r EKG WITH INTERPRETATION Cardiology Routine Hypertrophic cardiomyopathy (HCC) VT (ventricular tachycardia) (HCC) Atrial tachycardia (HCC) Chronic systolic congestive heart failure (HCC) Ordered: 12/23/2021 [facility] Work Phone: Comment on above: Ordered: 12/23/2021 End: 12-19-2022 EGD DIAGNOSTIC EGD DIAGNOSTIC Endoscopy Routine Chronic gastric ulcer without hemorrhage and without perforation 1 Occurrences starting 12/19/2021 until 12/19/2022 [facility] Work Phone: Comment on above: 1 Occurrences starting 12/19/2021 until 12/19/2022 Erythrocyte mean cor puscular volume determination [facility] Erythrocyte mean cor puscular volume determination [facility] Erythrocyte mean cor puscular volume determination [facility] Glucose [Mass/volume ] in Serum or Plasma [facility] Work Phone: Glucose [Mass/volume ] in Serum or Plasma [facility] Glucose [Mass/volume ] in Serum or Plasma [facility] Glucose [Mass/volume ] in Serum or Plasma [facility] Hematocrit [Volume F raction] of Blood [facility] Work Phone: Hematocrit [Volume F raction] of Blood [facility] Hematocrit [Volume F raction] of Blood [facility] Hematocrit [Volume F raction] of Blood [facility] Hemoglobin [Mass/vol ume] in Blood [facility] Work Phone: Hemoglobin [Mass/vol ume] in Blood [facility] Hemoglobin [Mass/vol ume] in Blood [facility] Hemoglobin [Mass/vol ume] in Blood [facility] Hemoglobin A1c/Hemoglobin.total in Blood [facility] INR in Blood by Coag ulation assay [facility] Work Phone: INR in Blood by Coag ulation assay [facility] Leukocytes [#/volume ] in Blood [facility] Work Phone: Leukocytes [#/volume ] in Blood [facility] Leukocytes [#/volume ] in Blood [facility] Leukocytes [#/volume ] in Blood [facility] Lipid 1996 panel - S anne marie or Plasma [facility] Low density lipoprot ein cholesterol measurement [facility] Magnesium [Mass/volu me] in Serum or Plasma [facility] End: 09-19-2023 RAJ SCREENING RAJ SCREENING Radiology Routine Encounter for screening mammogram for breast cancer 1 Occurrences starting 08/20/2022 until 09/19/2023 [facility] Work Phone: Comment on above: 1 Occurrences starting 08/20/2022 until 09/19/2023 End: 09-02-2024 RAJ SCREENING RAJ SCREENING Radiology Routine Encounter for screening mammogram for breast cancer 1 Occurrences starting 08/04/2023 until 09/02/2024 [facility] Work Phone: Comment on above: 1 Occurrences starting 08/04/2023 until 09/02/2024 Mean corpuscular hem oglobin concentration determination [facility] Work Phone: Mean corpuscular hem oglobin concentration determination [facility] Mean corpuscular hem oglobin concentration determination [facility] Mean corpuscular hem oglobin concentration determination [facility] Mean corpuscular hem oglobin determination [facility] Work Phone: Mean corpuscular hem oglobin determination [facility] Mean corpuscular hem oglobin determination [facility] Mean corpuscular hem oglobin determination [facility] Measurement of renal function [facility] Work Phone: Measurement of renal function [facility] Measurement of renal function [facility] Measurement of renal function [facility] MG Breast - bilatera l Screening [facility] Natriuretic peptide. B prohormone N-Terminal [Mass/volume] in Serum or Plasma [facility] Neutrophil count [facility] Work Phone: Neutrophil count [facility] Neutrophil count [facility] Neutrophil count [facility] Neutrophil percent differential count [facility] Work Phone: Neutrophil percent differential count [facility] Neutrophil percent differential count [facility] Neutrophil percent differential count [facility] Patient Education ED Fracture, Clavicle [facility] Work Phone: Patient referral [facility] Work Phone: Platelets [#/volume] in Blood [facility] Work Phone: Platelets [#/volume] in Blood [facility] Platelets [#/volume] in Blood [facility] Platelets [#/volume] in Blood [facility] Potassium [Moles/vol ume] in Serum or Plasma [facility] Work Phone: Potassium measurement [facility] Potassium measurement [facility] Potassium measurement [facility] Prothrombin time [facility] Work Phone: End: 09-03-2023 PT panel - Platelet poor plasma by Coagulation assay PROTHROMBIN TIME/PT Lab Routine Encounter for monitoring Coumadin therapy Paroxysmal atrial fibrillation (HCC) Once per week for 99 Occurrences starting 09/03/2022 until 09/03/2023 [facility] Work Phone: Comment on above: Once per week for 99 Occurrences startin g 09/03/2022 until 09/03/2023 Red blood cell count [facility] Work Phone: Red blood cell count [facility] Red blood cell count [facility] Red blood cell count [facility] Red cell distributio n width determination [facility] Work Phone: Red cell distributio n width determination [facility] Red cell distributio n width determination [facility] Red cell distributio n width determination [facility] Serum chloride measurement [facility] Serum chloride measurement [facility] Serum chloride measurement [facility] Sodium [Moles/volume ] in Serum or Plasma [facility] Work Phone: Sodium measurement [facility] Sodium measurement [facility] Sodium measurement [facility] T4 free measurement [facility] Thyroid stimulating hormone measurement [facility] Work Phone: Thyroid stimulating hormone measurement [facility] Thyroid stimulating hormone measurement [facility] Total cholesterol:HD L ratio measurement [facility] Total protein measurement [facility] Work Phone: Total protein measurement [facility] Total protein measurement [facility] Triglycerides measurement [facility] Triiodothyronine, fr ee measurement [facility] Troponin I measurement [facility] Work Phone: Troponin T.cardiac [Mass/volume] in Serum or Plasma by High sensitivity method [facility] Urea nitrogen [Mass/ volume] in Serum or Plasma [facility] Work Phone: Urea nitrogen [Mass/ volume] in Serum or Plasma [facility] Urea nitrogen [Mass/ volume] in Serum or Plasma [facility] Urea nitrogen [Mass/ volume] in Serum or Plasma [facility] VLDL cholesterol measurement [facility] XR Chest PA and Lateral [facility] Immunizations Immunization Date Immunization Notes Care Provider Yunior avera [facility] 06-06-2019 influenza, injectabl e, quadrivalent, preservative free Dr. Yordy Allen Work Phone: [facility] 06-06-2019 influenza, seasonal, injectable Rodney Castro MD Work Phone: [facility] 06-06-2019 influenza virus vacc ine, unspecified formulation Yordy Allen MD Work Phone: [facility] 06-03-2017 influenza, injectabl e, quadrivalent, preservative free Dr. Yordy Allen Work Phone: [facility] 06-03-2017 influenza, seasonal, injectable Rodney Castro MD Work Phone: [facility] 06-03-2017 pneumococcal polysaccharide vaccine, 23 valent Rodney Castro MD Work Phone: [facility] 08-19-2015 zoster vaccine, live Rodney latif MD Work Phone: [facility] Work Phone: 07-02-2015 influenza nasal, unspecified formulation Rodney Castro MD Work Phone: [facility] Work Phone: 07-02-2015 influenza virus vacc ine, whole virus Rodney Castro MD Work Phone: [facility] 07-02-2015 influenza, injectabl e, quadrivalent, preservative free Dr. Yordy Allen Work Phone: [facility] Payers Date Payer Category Payer Unknown [id number] 2024 Self-pay 2024 Unknown [id number] 2023 Medicare [id number] 2018 Unknown [id number] 2018 Unknown [employer] [id number] 2018-Present [phone] [address] [place] [address] PPO [id number] 2018 Medicare [id number] 2018 Medicare MEDICARE MEDICAR E A AND B [id number] 2018-Present [phone] [place] [address] Medicare [id number]. [id number] 2018 Medicare MEDICARE MEDICAR E A AND B [id number] 2018-Present [phone] [place] [address] Medicare [id number]. [id number] 2017 Unknown 1955 Unknown [id number] 2.16.840.1.312619.3.579.2.356 1955 Unknown [id number] 2.16.840.1.790098.3.579.2.356 1955 Unknown [id number] 2.16.840.1.590771.3.579.2.356 1955 Unknown [id number] 2.16.840.1.950715.3.579.2.356 1954 Unknown [id number] 2.16.840.1.492620.3.579.2.356 1954 Unknown [id number] 2.16.840.1.554758.3.579.2.356 1954 Unknown [id number] 2.16.840.1.772258.3.579.2.356 1954 Unknown [id number] 2.16.840.1.752467.3.579.2.356 1954 Unknown [id number] 2.16.840.1.286361.3.579.2.356 1954 Unknown [id number] 2.16.840.1.969847.3.579.2.356 Unknown [id number] Unknown COMMERCIAL OTHER . [id number] Unknown [id number] 2.16.840.1.391055.3.579.2.462 Unknown [id number] 2.16.840.1.323953.3.579.2.462 Unknown [id number] 2.16.840.1.144820.3.579.2.462 Unknown [id number] 2.16.840.1.182588.3.579.2.462 Unknown [id number] 2.16.840.1.435983.3.579.2.462 Unknown [id number] 2.16.840.1.806171.3.579.2.462 Unknown [id number] 2.16.840.1.699956.3.579.2.462 Unknown [id number] 2.16.840.1.051080.3.579.2.462 Unknown [id number] 2.16.840.1.420292.3.579.2.462 Unknown [id number] 2.16840.1.061558.3.579.2.462 Unknown [id number] 2.16840.1.806032.3.579.2.462 Unknown [id number] 2.840.1.043933.3.579.2.462 Unknown [id number] 2.840.1.125410.3.579.2.462 Unknown [id number] 2.840.1.201160.3.579.2.462 Unknown [id number] 2.840.1.104306.3.579.2.462 Unknown [id number] 2.840.1.561301.3.579.2.462 Unknown [id number] 2.840.1.324779.3.579.2.462 Unknown [id number] 2.16840.1.090605.3.579.2.462 Unknown [id number] 2.840.1.388798.3.579.2.462 Unknown [id number] 2.16840.1.213912.3.579.2.462 Unknown [id number] 2.16840.1.767687.3.579.2.462 Unknown [id number] 2.16.840.1.029818.3.579.2.462 Unknown [id number] 2.16.840.1.505126.3.579.2.462 Unknown [id number] 2.16840.1.331553.3.579.2.462 Unknown [id number] 2.16.840.1.115510.3.579.2.462 Unknown [id number] 2.16.840.1.172851.3.579.2.462 Unknown [id number] 2.16.840.1.768996.3.579.2.462 Unknown [id number] 2.16.840.1.338546.3.579.2.462 Unknown [id number] 2.16.840.1.633160.3.579.2.462 Unknown [id number] 2.16.840.1.939042.3.579.2.462 Unknown [id number] 2.16840.1.697491.3.579.2.462 Unknown [id number] 2..840.1.872413.3.579.2.462 Unknown [id number] 2.840.1.531290.3.579.2.462 Unknown [id number] 2.840.1.664291.3.579.2.462 Unknown [id number] 2.840.1.591770.3.579.2.462 Unknown [id number] 2.840.1.491384.3.579.2.462 Unknown [id number] 2.840.1.855563.3.579.2.462 Unknown [id number] 2.16840.1.356552.3.579.2.462 Unknown [id number] 2.16840.1.138869.3.579.2.462 Unknown [id number] 2.16.840.1.956559.3.579.2.462 Unknown [id number] 2.16.840.1.852082.3.579.2.462 Unknown [id number] 2.16840.1.613952.3.579.2.462 Unknown [id number] 2.16840.1.226023.3.579.2.462 Unknown [id number] 2.16.840.1.223536.3.579.2.462 Unknown [id number] 2.16.840.1.281375.3.579.2.462 Unknown [id number] 2.16.840.1.756915.3.579.2.462 Unknown [id number] 2.16.840.1.736466.3.579.2.462 Unknown [id number] 2.16.840.1.534309.3.579.2.462 Unknown [id number] 2.16.840.1.553155.3.579.2.462 Unknown [id number] 2.16.840.1.801697.3.579.2.462 Unknown [id number] 2.16.840.1.055481.3.579.2.462 Unknown [id number] 2.16.840.1.706952.3.579.2.462 Unknown [id number] 2.16.840.1.208515.3.579.2.462 Unknown [id number] 2.16.840.1.633338.3.579.2.462 Social History Date Type Detail Facility Start: 05-01-2015 End: 01-26-2025 Tobacco smoking status NHIS Ex-smoker [facility] Work Phone: End: 05-01-1983 History of tobacco use Current smoker [facility] Work Phone: End: 05-01-1983 History of tobacco use Cigarette Smoker [facility] Work Phone: Start: 05-01-2015 End: 02-16-2023 Cigarettes smoked current (pack per day) - Reported 1 [facility] Start: 05-01-2015 End: 06-08-2022 Tobacco use and exposure Smokeless tobacco non-user [facility] Work Phone: Start: 11-26-2021 End: 12-15-2022 Alcohol intake Current drinker of alcohol (finding) [facility] Start: 01-14-2021 End: 08-18-2022 History SDOH Alcohol Frequency 2 [facility] Start: 01-14-2021 End: 08-18-2022 History SDOH Alcohol Std Drinks 1 [facility] Start: 06-12-2019 History SDOH Alcohol Comment Rare [facility] Start: 01-14-2021 End: 08-18-2022 History SDOH Social Connections Phone 5 [facility] Start: 01-14-2021 History SDOH Social Connections Sabianist 3 [facility] Start: 01-14-2021 End: 08-18-2022 History SDOH Physical Activity DPW 0 [facility] Start: 01-14-2021 Education 15 [facility] Start: 1955 Sex Assigned At Female C [facility] Start: 11-29-2021 End: 08-13-2022 Exposure to SARS-CoV-2 (event) Not sure [facility] Start: 01-02-2022 End: 06-02-2022 Exposure to SARS-CoV-2 (event) Unable to assess [facility] Start: 05-01-2022 End: 05-11-2022 Exposure to SARS-CoV-2 (event) Yes [facility] Start: 05-22-2022 End: 08-18-2022 History SDOH Social Connections Get Together 98 [facility] Start: 08-17-2022 End: 08-27-2023 Tobacco smoking status NHIS Unknown if ever smoked [facility] Start: 08-18-2022 End: 02-16-2023 Social connection and isolation panel [facility] How often do you get together with friends or relatives? Patient refused [facility] Do you belong to any clubs or organizations such as yarsani groups, unions, fraternal or athletic groups, or school groups? No [facility] Are you now , , , , never or living with a partner? [facility] How often to you hav e a drink containing alcohol? Never [facility] Do you feel stress - tense, restless, nervous, or anxious, or unable to sleep at night because your mind is troubled all the time - these days [OSQ] Not at all [facility] (I/We) worried whedane er (my/our) food would run out before (I/we) got money to buy more. Never true [facility] Start: 07-21-2020 Gender identity Identifies as female gender (finding) [facility] Start: 12-12-2024 Sex Female (finding) [facility] Goals Date Patient Goal Desired Activity /State Functional Status Date Assessment Result Facility 01-26-2025 Functional status Ambulates;Chair [facility] Work Phone: 01-25-2025 Functional status Ambulates [facility] Work Phone: 09-22-2022 Functional status Active Range of Motion [facility] Work Phone: 09-20-2022 Functional status Activity Abili ty Standby Assist [facility] Work Phone: Mental Status Date Assessment Result Facility 01-26-2025 Cognitive function Voice/Name [facility] Work Phone: 01-25-2025 Cognitive function Voice/Name [facility] Work Phone: 09-22-2022 Cognitive function Voice/Name [facility] Work Phone: 09-20-2022 Cognitive function Voice/Name [facility] Work Phone: Clinical Notes 03-25-2021 to 02-09-2025 Note Date & Type Note Facility 02-09-2025 Radiology Diagnostic study note [facility] [address] [place] [address] Chest PA and Lateral MR#: [id number] Acct: [id number] Name: EM DANIEL SUZETTE Rep #: [id number] : 1955 F 69 From: Gonzalez Rios MD PCP: Dr. Roseline Barakat MD Status: REG CLI Study:Chest PA and Lateral Date of Exam: 02/08/25 Exam# [id number] Ordering Dr: Jeanette Mora PA PROCEDURE: CHEST PA AND LATERAL 02/08/2025 REASON FOR EXAM: SHORTNESS OF BREATH, CHF TECHNIQUE: Frontal and lateral views of the chest. COMPARISON: 04/14/2023 FINDINGS: Appearance of mild vascular congestion, possible mild pulmonary edema. No pleural effusion seen. Hyperinflation and increased thoracic kyphosis with a few anterior wedge vertebral deformities again noted. Cardiac silhouette again enlarged with note of previous sternotomy, mitral valve replacement and AICD. RAD/Chest PA and Lateral IMPRESSION: Appearance of mild vascular congestion, possible mild pulmonary edema. No pleural effusion seen. Hyperinflation and increased thoracic kyphosis with a few anterior wedge vertebral deformities again noted. Cardiac silhouette again enlarged with note of previous sternotomy, mitral valvereplacement and AICD. Reading Location: [id number] CC: Dr. Roseline Barakat MD; YENIFER Hastings ~ Office Workforce Planner: Signed [facility] 01-26-2025 Consult note [facility] 01-26-2025 Discharge summary [facility] 01-26-2025 Note [facility] 01-25-2025 Discharge summary Note Date/Time January 25, 2025 5:10pm [facility] Medical Records Department [address] [place] [address] Emergency Department Summary 01/25/25 MR#: [id number] Acct: [id number] Name: EM DANIEL Rep #:[id number] : 1955 69 From: Ady Lockhart PCP: Dr. Roseline Barakat MD Status:ADM MARIE Location: [place] [address] HPI History of Present Illness Chief Complaint: Stroke Alert Informant: patient and family (Daughter) Onset/Context/Timing Onset: Today Context: Sudden Onset Timing: Continuous Quality and Location: Positive for Left Leg Weakness Onset: Approximately 45 minutes prior to arrival Worsened by: Nothing Relieved by: Nothing Associated Symptoms Associated Symptoms: Negative for Headache, Nausea, Vomiting or Chest Pain Narrative Narrative: Patient presents with possible stroke that began approximately 45 minutes prior to arrival. Patient was walking around a nursery looking at plants when her legs gave out. The daughter states she attempted to lift the patient up and herleft leg was very weak. Daughter states patient was able to move her left arm. Patient states her symptoms are improving. Patient denies any paresthesias. Patient denies any difficulty speaking or difficulty swallowing. Patient deniesany headaches. Patient denies any nausea or vomiting. Patient denies any chestpain or shortness of breath. [facility] Medical History (Updated 01/25/25 @ 14:[address] Ady Lizarraga, DO) Anemia Hypothyroidism Coronary artery disease BiPAP (biphasic positive airway pressure) dependence Sleep apnea Autoimmune thyroiditis Multinodular goiter Presence of cardiac resynchronization therapy defibrillator (NEEDLE LOOM SETTER-D) Warfarin-induced coagulopathy Hypoxia Congestive heart failure Collar bone fracture Pacemaker A-fib Hypertrophic cardiomyopathy Home Medications ?Medication ?Instructions ?Recorded ?Last Taken ?Type aspirin 81 mg chewable tablet 81 mg PO DAILY heart hea lth 07/08/22 01/24/25 History (Rahul Chewable Low Dose Aspirin) spacer #1 ea 11/26/22 Unknown Rx warfarin 1 mg tablet 1 mg PO .COMPLEX 12/03/22 Un known History metoprolol succinate 50 mg 50 mg PO QDAY blood pressur e #180 05/22/24 01/24/25 Rx tablet,extended release 24 hr tabs (Toprol XL) torsemide 20 mg tablet 20 mg PO BID #180 tabs 12/1101/24/25 Rx spironolactone 25 mg tablet 25 mg PO DAILY #90 tabs 01/24/25 Rx warfarin 5 mg tablet 5 mg PO DAILY blood thinner #100 01/04/25 01/24/25 Rx tabs albuterol sulfate 90 mcg/actuation 2 puff inhalation Q 4H PRN 01/09/25 Unknown Rx aerosol inhaler shortness of breath or wheez ing #8.5 grams budesonide-formoterol HFA 160 2 inh inhalation BID #1 ea 01/09/25 01/24/25 Rx mcg-4.5 mcg/actuation aerosol inhaler (Symbicort) dapagliflozin propanediol 10 mg 10 mg PO DAILY #90 tab s 01/22/25 01/24/25 Rx tablet (Farxiga) Allergy/AdvReac Type Severity Reaction Status Date / Time No Known Allergies Allergy Verified 01/25/25 14:08 Family History Father Heart disease Grandmother Breast cancer Surgical History H/O cataract removal with insertion of prosthetic lens History of mitral valve replacement with mechanical valve Status post spinal disc removal History of hysterectomy Social History household members: family 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 Smoking Status: Former smoker quit date: 09/13/83 pack-years: 1 Electronic Cigarette Use: not used how long ago did patient quit smokin years ago alcohol intake: current details: beer, on occasion substance use type: former substance user caffeine: Yes seatbelt use: always do you feel safe at home: Yes ROS ROS ED Constitutional Constitutional ED: Denies chills or fever(s) Eyes Eyes: Denies blurry vision or change in vision ENT ENT ED: Denies rhinorrhea or sore throat Cardiovascular Cardiovascular: Denies chest pain or palpitations Respiratory/Chest Respiratory/Chest: Denies cough or dyspnea Gastrointestinal Gastrointestinal: Denies nausea or vomiting Genitourinary Genitourinary ED: Denies dysuria or hematuria Musculoskeletal Musculoskeletal: Denies back pain or neck pain Integumentary Denies abscess or rash Neurologic Neurologic: Reports weakness; Denies headache(s) Allergic/Immunologic Allergic/Immunologic ED: Denies mouth swelling or urticaria EXAM Physical Exam Const Vital Signs: 01/25/25 11:58 01/25/25 12:02 01/25/25 12:02 Temperature 98.3 F Temperature Source Oral Pulse Rate 70 Respiratory Rate 18 16 Blood Pressure 111/56 L 114/70 Blood Pressure Mean 74 84 Pulse Ox 97 99 Oxygen Delivery Method Room Air Room Air Room Air 01/25/25 12:32 01/25/25 12:32 01/25/25 13:00 Temperature Temperature Source Pulse Rate 70 70 70 Respiratory Rate 16 16 16 Blood Pressure 113/73 113/74 104/58 L Blood Pressure Mean 86 87 73 Pulse Ox 99 99 99 Oxygen Delivery Method 01/25/25 13:02 01/25/25 13:30 01/25/25 13:30 Temperature Temperature Source Pulse Rate 70 70 70 Respiratory Rate 16 16 16 Blood Pressure 104/53 L 109/75 109/75 Blood Pressure Mean 70 86 86 Pulse Ox 99 99 99 Oxygen Delivery Method Positive well nourished and well developed General Appearance ED: well developed and NAD HEENT Reports moist mucous membranes Eyes PERRL and EOMs intact bilaterally Neck supple and no JVD Resp normal respiratory effort and clear to auscultation bilaterally Cardio Rate: regular rate Rhythm: regular rhythm GI soft to palpation, non-tender and non-distended Extremity normal to inspection General Extremety ED: Negative for deformity, edema or tenderness General Extremity: Negative for deformity or edema Neuro oriented x3 and CN's II-XII intact bilaterally [place] Coma Scale: document GCS findings Spontaneous Obeys Commands Oriented 15 Sensorium / Orientation: alert Speech: speech normal Motor Exam: strength 5/5 throughout Psych mental status grossly normal Skin no wounds MDM MDM MDM Narrative Medical decision making narrative: Differential diagnosis includes stroke, TIA, dehydration, electrolyte abnormality, pneumonia, bronchitis, cardiac dysrhythmia, and cardiac ischemia. EKG will be obtained to assess for cardiac dysrhythmia and cardiac ischemia. CTscan of the brain will be obtained to assess for stroke and intracranial bleeding. CTA of the head and neck will be obtained to assess for large vessel occlusion and carotid stenosis. CBC will be obtained to assess for leukocytosisand anemia. Basic metabolic profile will be obtained to assess for electrolyte abnormality and renal function. High-sensitivity troponin will be obtained to assess for cardiac ischemia. 2-hour repeat high-sensitivity troponin will be obtained to assess for ongoing cardiac ischemia. PT with INR and PTT will be obtained to assess for coagulopathy. History & Record Review Additional record(s) reviewed:: Prior labs Lab Data Attestation: I reviewed the patient's lab results. Lab results narrative: CBC was reviewed and was within normal limits. PT with INR and PTT were reviewed. Pro time was 29.1 and INR was 2.7. PTT was 36.5. Basic metabolic profile was reviewed. CO2 was slightly low at 18.5. BUN was 31 and creatinine was 1.59. These are improved from previous result. Glucose was slightly elevated at 132. Initial high-sensitivity troponin was reviewed and was elevated at 135. Labs: Laboratory Results - last 24 hr 01/25/25 11:59 WBC 5.3 RBC 4.43 Hgb 13.1 Hct 40.1 MCV 90.5 MCH 29.6 MCHC 32.7 RDW Std Deviation 50.5 H RDW Coeff of Sona 15.4 H Plt Count 151 MPV 9.3 Immature Gran % (Auto) 0.400 Neut % (Auto) 64.9 Lymph % (Auto) 19.3 [place] % (Auto) 12.9 H Eos % (Auto) 1.9 Baso % (Auto) 0.6 Absolute Neuts (auto) 3.4 Absolute Lymphs (auto) 1.02 Nucleated RBC % 0 PT 29.1 H INR 2.7 APTT 36.5 H Sodium 138 Potassium 4.0 Chloride 106 Carbon Dioxide 18.5 L Anion Gap 14 BUN 31 H Creatinine 1.59 H Estim Creat Clear Calc 29.63 L Est GFR (MDRD) Non-Af 35 L BUN/Creatinine Ratio 19.2 Glucose 132 H Calcium 9.4 Troponin T High Sens 135 H* Radiography Diagnostic Testing: Clinical Impression(s) from Imaging Studies Brain CT 01/25/25 12:02 IMPRESSION: CHRONIC CHANGES. NO ACUTE FINDINGS. Red Alert: Nothing acute The critical information above was relayed directly by me by telephone to Ady Lizarraga on 01/25/2025 at 12:12 pm with readback verification. Reading Location: [id number] Head/Neck CTA 01/25/25 12:02 IMPRESSION: Minimal plaque formation at the origin of left internal carotid artery. Red Alert: Minimal placque at origin of Left ICA The critical information above was relayed directly by me by telephone to Ady Lizarraga on 01/25/2025 at 12:28 pm with readback verification. Reading Location: [id number] CT scan of the brain was obtained. There is no acute intracranial abnormality. This was interpreted by the radiologist and was also independently reviewed by myself. CTA of the head and neck was obtained. There is minimal plaque formation at theorigin of the left internal carotid artery. There is no large vessel occlusion noted. There is no aneurysm noted. This was interpreted by the radiologist andwas also independently reviewed by myself. EKG Initial EKG: Attestation: I personally reviewed and interpreted this EKG as follows: Interpretation: Paced (70) Comments: EKG was obtained. On my independent interpretation, shows a paced rhythm with a rate of 70. TN interval was slightly prolonged at 228 ms. QRS interval was prolonged at 160 ms. QTc interval slightly prolonged at 544 ms. There is left axis deviation -39. There is a left bundle branch block pattern noted. Prior EKG tracings: available for review Prior: Unchanged (08/25/2023) Management Discussion w/another healthcare provider: Hospitalist, City Tax Auditor (Dr. Falcon, stroke neurologist at [facility]) and Radiologist Treatment and Re-Evaluation Narrative: Patient and family were advised of her findings. Patient is not a candidate forthrombolytic therapy at this time due to her current Coumadin use and improving symptoms. Patient was advised of her findings. Findings were also discussed with patient's daughter over the phone. Daughter states patient always has an elevated troponin. Patient denies any chest pain. Patient states she has been having some shortness of breath over the past couple days. Because of the TIA symptoms, and elevated troponin, I recommended admission to the hospital for further evaluation. Patient and daughter are agreeable with this. Case was discussed with the hospitalist. She will admit the patient to her service. Patient understood and was agreeable with the plan. All questions were answered. Discharge Plan Triage Chief Complaint: Stroke Alert ED Provider: Ady Lizarraga Dx/Rx/DC Orders Clinical Impression: TIA (transient ischemic attack), CKD (chronic kidney disease), Elevated troponin, Pacemaker Prescriptions: No Action aspirin [Rahul Chewable Aspirin] 81 mg tablet,chewable 81 mg PO DAILY warfarin 1 mg tablet 1 mg PO .COMPLEX Protocol: Dose Management Condition: Wednesday Dose/Route: 5 mg Instruction: 1 x 5 mg tablet Condition: Wednesday Dose/Route: 5 mg Instruction: 1 x 5 mg tablet Condition: Wednesday Dose/Route: 2.5 mg Instruction: 0.5 x 5 mg tablets Condition: Wednesday Dose/Route: 5 mg Instruction: 1 x 5 mg tablet Condition: Dose/Route: 2.5 mg Instruction: 0.5 x 5 mg tablets Condition: Wednesday Dose/Route: 5 mg Instruction: 1 x 5 mg tablet Condition: Wednesday Dose/Route: 5 mg Instruction: 1 x 5 mg tablet Protocol Text: Adjustment Start Date: Wednesday12/05/24 INR Value: 4.0 INR Date: 10/30/24 Recheck Date: 12/19/24 Rx Instructions: 1 mg orally as directed for dose changes; Managed by PCP spironolactone 25 mg tablet 25 mg PO DAILY Qty: 90 3RF Rx Instructions: Hold for serum potassium more than 5.0 albuterol sulfate 90 mcg/actuation HFA aerosol inhaler 2 puff inhalation Q4H PRN (Reason: shortness of breath or wheezing) Qty: 8.5 11RF budesonide-formoterol [Symbicort] 160-4.5 mcg/actuation HFA aerosol inhaler 2 inh inhalation BID Qty: 1 11RF Rx Instructions: administer with spacer, rinse mouth after each use (DME) spacer See Rx Instructions .ROUTE .MEDSUPPLY Qty: 1 0RF Rx Instructions: As directed metoprolol succinate [Toprol XL] 50 mg tablet extended release 24 hr 50 mg PO QDAY Qty: 180 3RF torsemide 20 mg tablet 20 mg PO BID Qty: 180 3RF warfarin 5 mg tablet 5 mg PO DAILY Qty: 100 3RF Protocol: Dose Management Condition: Wednesday Dose/Route: 5 mg Instruction: 1 x 5 mg tablet Condition: Wednesday Dose/Route: 5 mg Instruction: 1 x 5 mg tablet Condition: Wednesday Dose/Route: 2.5 mg Instruction: 0.5 x 5 mg tablets Condition: Wednesday Dose/Route: 5 mg Instruction: 1 x 5 mg tablet Condition: Dose/Route: 2.5 mg Instruction: 0.5 x 5 mg tablets Condition: Wednesday Dose/Route: 5 mg Instruction: 1 x 5 mg tablet Condition: Wednesday Dose/Route: 5 mg Instruction: 1 x 5 mg tablet Protocol Text: Adjustment Start Date: Wednesday12/05/24 INR Value: 4.0 INR Date: 10/30/24 Recheck Date: 12/19/24 Patient Comments: daughter states takes 5mg daily and occasionally gets bumped up to 7.5mg but not often Rx Instructions: Take 1 tab (5mg) Wed/Wed/Wed/Wed/Sat and 0.5 tab (2.5mg) /.; or use as directed Farxiga 10 mg tablet 10 mg PO DAILY Qty: 90 3RF Primary Care Provider: Roseline Barakat Referrals: Roseline Barakat MD [Primary Care Provider] - Print Language: Bel[place]an Disposition Disposition: Acute Care Hospital [facility] NIHSS NIHSS 1a. Level of Consciousness: 0 - Alert; keenly responsive 1b. LOC Questions: 0 - Answers BOTH questions correctly 1c. LOC Commands: 0 - Performs BOTH tasks correctly 2. Best Gaze: 0 - Normal 3. Visual: 0 - No visual loss 4. Facial Palsy: 0 - Normal symmetrical movements 5a. Left Arm: 0 - No drift; arm holds 90 (or 45) degrees for full 10 seconds 5b. Right Arm: 0 - No drift; arm holds 90 (or 45) degrees for full 10 seconds 6a. Left Le - No drift; leg holds 30-degree position for full 5 seconds 6b. Right Le - No drift; leg holds 30-degree position for full 5 seconds 7. Limb Ataxia: 0 - Absent 8. Sensory: 0 - Normal; no sensory loss 9. Best Language: 0 - No aphasia; normal 10. Dysarthria: 0 - Normal 11. Extinction and Inattention: 0 - No abnormality Total: 0 Stroke Questions Stroke Team Activated: Yes Reviewed Inclusion/Exclusion criteria: Yes Was Patient considered for Endovascular Intervention?: No IV Thrombolytic Administered: No What to do if you have Problems For any increased pain, shortness of breath, bleeding, nausea or vomiting, chestpain, or any unexpected problems, contact your Primary Care Provider. Call [facility] ([phone]) or report to the closest Emergency Room. Call 911 if necessary. 01/25/25 1710 <Electronically signed by Ady Lizarraga DO> Cosigner Signature (if applicable): CC: Dr. Roseline Barakat MD ~ Signed [facility] Work Phone: [phone] Discharge summary [facility] Medical Records Department [address] [place] [id number] Emergency Department Summary 01/25/25 MR#: [id number] Acct: [id number] Name: EM DANIEL SUZETTE Rep #:[id number] : 1955 69 From: Ady Lockhart PCP: Dr. Roseline Barakat MD Status:ADM MARIE Location: [address] History of Present Illness Chief Complaint: Stroke Alert Informant: patient and family (Daughter) Onset/Context/Timing Onset: Today Context: Sudden Onset Timing: Continuous Quality and Location: Positive for Left Leg Weakness Onset: Approximately 45 minutes prior to arrival Worsened by: Nothing Relieved by: Nothing Associated Symptoms Associated Symptoms: Negative for Headache, Nausea, Vomiting or Chest Pain Narrative Narrative: Patient presents with possible stroke that began approximately 45 minutes prior to arrival. Patientwas walking around a nursery looking at plants when her legs gave out. The daughter states she attempted to lift the patient up and herleft leg was very weak. Daughter states patient was able to moveher left arm. Patient states her symptoms are improving. Patient denies any paresthesias. Patient de nies any difficulty speaking or difficulty swallowing. Patient deniesany headaches. Patient denies any nausea or vomiting. Patient denies any chestpain or shortness of breath. [facility] Medical History (Updated 01/25/25 @ 14:[address] Ady Lizarraga, DO) Anemia Hypothyroidism Coronary artery disease BiPAP (biphasic positive airway pressure) dependence Sleep apnea Autoimmune thyroiditis Multinodular goiter Presence of cardiac resynchronization therapy defibrillator (NEEDLE LOOM SETTER-D) Warfarin-induced coagulopathy Hypoxia Congestive heart failure Collar bone fracture Pacemaker A-fib Hypertrophic cardiomyopathy Home Medications ?Medication ?Instructions ?Recorded ?Last Taken ?Type aspirin 81 mg chewable tablet 81 mg PO DAILY heart hea lth 07/08/22 01/24/25 History (Rahul Chewable Low Dose Aspirin) spacer #1 ea 11/26/22 Unknown Rx warfarin 1 mg tablet 1 mg PO .COMPLEX 12/03/22 Un known History metoprolol succinate 50 mg 50 mg PO QDAY blood pressur e #180 05/22/24 01/24/25 Rx tablet,extended release 24 hr tabs (Toprol XL) torsemide 20 mg tablet 20 mg PO BID #180 tabs 12/1101/24/25 Rx spironolactone 25 mg tablet 25 mg PO DAILY #90 tabs 01/24/25 Rx warfarin 5 mg tablet 5 mg PO DAILY blood thinner #100 01/04/25 01/24/25 Rx tabs albuterol sulfate 90 mcg/actuation 2 puff inhalation Q 4H PRN 01/09/25 Unknown Rx aerosol inhaler shortness of breath or wheez ing #8.5 grams budesonide-formoterol HFA 160 2 inh inhalation BID #1 ea 01/09/25 01/24/25 Rx mcg-4.5 mcg/actuation aerosol inhaler (Symbicort) dapagliflozin propanediol 10 mg 10 mg PO DAILY #90 tab s 01/22/25 01/24/25 Rx tablet (Farxiga) Allergy/AdvReac Type Severity Reaction Status Date / Time No Known Allergies Allergy Verified 01/25/25 14:08 Family History Father Heart disease Grandmother Breast cancer Surgical History H/O cataract removal with insertion of prosthetic lens History of mitral valve replacement with mechanical valve Status post spinal disc removal History of hysterectomy Social History household members: family current occupation: works in a [employer] Smoking Status: Former smoker quit date: 09/13/83 pack-years: 1 Electronic Cigarette Use: not used how long ago did patient quit smokin years ago alcohol intake: current details: beer, on occasion substance use type: former substance user caffeine: Yes seatbelt use: always do you feel safe at home: Yes ROS ROS ED Constitutional Constitutional ED: Denies chills or fever(s) Eyes Eyes: Denies blurry vision or change in vision ENT ENT ED: Denies rhinorrhea or sore throat Cardiovascular Cardiovascular: Denies chest pain or palpitations Respiratory/Chest Respiratory/Chest: Denies cough or dyspnea Gastrointestinal Gastrointestinal: Denies nausea or vomiting Genitourinary Genitourinary ED: Denies dysuria or hematuria Musculoskeletal Musculoskeletal: Denies back pain or neck pain Integumentary Denies abscess or rash Neurologic Neurologic: Reports weakness; Denies headache(s) Allergic/Immunologic Allergic/Immunologic ED: Denies mouth swelling or urticaria EXAM Physical Exam Const Vital Signs: 01/25/25 11:58 01/25/25 12:02 01/25/25 12:02 Temperature 98.3 F Temperature Source Oral Pulse Rate 70 Respiratory Rate 18 16 Blood Pressure 111/56 L 114/70 Blood Pressure Mean 74 84 Pulse Ox 97 99 Oxygen Delivery Method Room Air Room Air Room Air 01/25/25 12:32 01/25/25 12:32 01/25/25 13:00 Temperature Temperature Source Pulse Rate 70 70 70 Respiratory Rate 16 16 16 Blood Pressure 113/73 113/74 104/58 L Blood Pressure Mean 86 87 73 Pulse Ox 99 99 99 Oxygen Delivery Method 01/25/25 13:02 01/25/25 13:30 01/25/25 13:30 Temperature Temperature Source Pulse Rate 70 70 70 Respiratory Rate 16 16 16 Blood Pressure 104/53 L 109/75 109/75 Blood Pressure Mean 70 86 86 Pulse Ox 99 99 99 Oxygen Delivery Method Positive well nourished and well developed General Appearance ED: well developed and NAD HEENT Reports moist mucous membranes Eyes PERRL and EOMs intact bilaterally Neck supple and no JVD Resp normal respiratory effort and clear to auscultation bilaterally Cardio Rate: regular rate Rhythm: regular rhythm GI soft to palpation, non-tender and non-distended Extremity normal to inspection General Extremety ED: Negative for deformity, edema or tenderness General Extremity: Negative for deformity or edema Neuro oriented x3 and CN's II-XII intact bilaterally [place] Coma Scale: document GCS findings Spontaneous Obeys Commands Oriented 15 Sensorium / Orientation: alert Speech: speech normal Motor Exam: strength 5/5 throughout Psych mental status grossly normal Skin no wounds MDM MDM MDM Narrative Medical decision making narrative: Differential diagnosis includes stroke, TIA, dehydration, electrolyte abnormality, pneumonia, bronchitis, cardiac dysrhythmia, and cardiac ischemia. EKG will be obtained to assess for cardiac dysrhythmia and cardiac ischemia. CTscan of the brain will be obtained to assess for stroke and intracranial bleeding. CTA of the head and neck will be obtained to assess for large vessel occlusion and carotid stenosis. CBC will be obtained to assess for leukocytosisand anemia. Basic metabolic profile willbe obtained to assess for electrolyte abnormality and renal function. High-sensitivity troponin will be obtained to assess for cardiac ischemia. 2-hour repeat high-sensitivity troponin will be obtained to assess for ongoing cardiac ischemia. PT with INR and PTT will be obtained to assess for coagulopathy. History & Record Review Additional record(s) reviewed:: Prior labs Lab Data Attestation: I reviewed the patient's lab results. Lab results narrative: CBC was reviewed and was within normal limits. PT with INR and PTT were reviewed. Pro time was 29.1and INR was 2.7. PTT was 36.5. Basic metabolic profile was reviewed. CO2 was slightly low at 18.5. BUN was 31 and creatinine was 1.59. These are improved from previous result. Glucose was slightly elevated at 132. Initial high-sensitivity troponin was reviewed and was elevated at 135. Labs: Laboratory Results - last 24 hr 01/25/25 11:59 WBC 5.3 RBC 4.43 Hgb 13.1 Hct 40.1 MCV 90.5 MCH 29.6 MCHC 32.7 RDW Std Deviation 50.5 H RDW Coeff of Sona 15.4 H Plt Count 151 MPV 9.3 Immature Gran % (Auto) 0.400 Neut % (Auto) 64.9 Lymph % (Auto) 19.3 [place] % (Auto) 12.9 H Eos % (Auto) 1.9 Baso % (Auto) 0.6 Absolute Neuts (auto) 3.4 Absolute Lymphs (auto) 1.02 Nucleated RBC % 0 PT 29.1 H INR 2.7 APTT 36.5 H Sodium 138 Potassium 4.0 Chloride 106 Carbon Dioxide 18.5 L Anion Gap 14 BUN 31 H Creatinine 1.59 H Estim Creat Clear Calc 29.63 L Est GFR (MDRD) Non-Af 35 L BUN/Creatinine Ratio 19.2 Glucose 132 H Calcium 9.4 Troponin T High Sens 135 H* Radiography Diagnostic Testing: Clinical Impression(s) from Imaging Studies Brain CT 01/25/25 12:02 IMPRESSION: CHRONIC CHANGES. NO ACUTE FINDINGS. Red Alert: Nothing acute The critical information above was relayed directly by me by telephone to Ady Lizarraga on 01/25/2025 at 12:12 pm with readback verification. Reading Location: [facility] Head/Neck CTA 01/25/25 12:02 IMPRESSION: Minimal plaque formation at the origin of left internal carotid artery. Red Alert: Minimal placque at origin of Left ICA The critical information above was relayed directly by me by telephone to Ady Lizarraga on 01/25/2025 at 12:28 pm with readback verification. Reading Location: [facility] CT scan of the brain was obtained. There is no acute intracranial abnormality. This was interpretedby the radiologist and was also independently reviewed by myself. CTA of the head and neck was obtained. There is minimal plaque formation at theorigin of the left internal carotid artery. There is no large vessel occlusion noted. There is no aneurysm noted. This was interpreted by the radiologist andwas also independently reviewed by myself. EKG Initial EKG: Attestation: I personally reviewed and interpreted this EKG as follows: Interpretation: Paced (70) Comments: EKG was obtained. On my independent interpretation, shows a paced rhythm with a rate of 70. TN interval was slightly prolonged at 228 ms. QRS interval was prolonged at 160 ms. QTc interval slightly prolonged at 544 ms. There is left axis deviation -39. There is a left bundle branch block pattern noted. Prior EKG tracings: available for review Prior: Unchanged (08/25/2023) Management Discussion w/another healthcare provider: Hospitalist, City Tax Auditor (Dr. Falcon, stroke neurologist at [facility]) and Radiologist Treatment and Re-Evaluation Narrative: Patient and family were advised of her findings. Patient is not a candidate forthrombolytic therapyat this time due to her current Coumadin use and improving symptoms. Patient was advised of her findings. Findings were also discussed with patient's daughter over the phone. Daughter states patient always has an elevated troponin. Patient denies any chest pain. Patient states she has been having some shortness of breath over the past couple days. Because of the TIA symptoms, and elevated troponin, I recommended admission to the hospital for further evaluation. Patient and daughter are agreeable with this. Case was discussed with the hospitalist. She will admit the patient to her service. Skylar ent understood and was agreeable with the plan. All questions were answered. Discharge Plan Triage Chief Complaint: Stroke Alert ED Provider: Ady Lizarraga Dx/Rx/DC Orders Clinical Impression: TIA (transient ischemic attack), CKD (chronic kidney disease), Elevated troponin, Pacemaker Prescriptions: No Action aspirin [Rahul Chewable Aspirin] 81 mg tablet,chewable 81 mg PO DAILY warfarin 1 mg tablet 1 mg PO .COMPLEX Protocol: Dose Management Condition: Wednesday Dose/Route: 5 mg Instruction: 1 x 5 mg tablet Condition: Wednesday Dose/Route: 5 mg Instruction: 1 x 5 mg tablet Condition: Wednesday Dose/Route: 2.5 mg Instruction: 0.5 x 5 mg tablets Condition: Wednesday Dose/Route: 5 mg Instruction: 1 x 5 mg tablet Condition: Dose/Route: 2.5 mg Instruction: 0.5 x 5 mg tablets Condition: Wednesday Dose/Route: 5 mg Instruction: 1 x 5 mg tablet Condition: Wednesday Dose/Route: 5 mg Instruction: 1 x 5 mg tablet Protocol Text: Adjustment Start Date: Wednesday12/05/24 INR Value: 4.0 INR Date: 10/30/24 Recheck Date: 12/19/24 Rx Instructions: 1 mg orally as directed for dose changes; Managed by PCP spironolactone 25 mg tablet 25 mg PO DAILY Qty: 90 3RF Rx Instructions: Hold for serum potassium more than 5.0 albuterol sulfate 90 mcg/actuation HFA aerosol inhaler 2 puff inhalation Q4H PRN (Reason: shortness of breath or wheezing) Qty: 8.5 11RF budesonide-formoterol [Symbicort] 160-4.5 mcg/actuation HFA aerosol inhaler 2 inh inhalation BID Qty: 1 11RF Rx Instructions: administer with spacer, rinse mouth after each use (DME) spacer See Rx Instructions .ROUTE .MEDSUPPLY Qty: 1 0RF Rx Instructions: As directed metoprolol succinate [Toprol XL] 50 mg tablet extended release 24 hr 50 mg PO QDAY Qty: 180 3RF torsemide 20 mg tablet 20 mg PO BID Qty: 180 3RF warfarin 5 mg tablet 5 mg PO DAILY Qty: 100 3RF Protocol: Dose Management Condition: Wednesday Dose/Route: 5 mg Instruction: 1 x 5 mg tablet Condition: Wednesday Dose/Route: 5 mg Instruction: 1 x 5 mg tablet Condition: Wednesday Dose/Route: 2.5 mg Instruction: 0.5 x 5 mg tablets Condition: Wednesday Dose/Route: 5 mg Instruction: 1 x 5 mg tablet Condition: Dose/Route: 2.5 mg Instruction: 0.5 x 5 mg tablets Condition: Wednesday Dose/Route: 5 mg Instruction: 1 x 5 mg tablet Condition: Wednesday Dose/Route: 5 mg Instruction: 1 x 5 mg tablet Protocol Text: Adjustment Start Date: Wednesday12/05/24 INR Value: 4.0 INR Date: 10/30/24 Recheck Date: 12/19/24 Patient Comments: daughter states takes 5mg daily and occasionally gets bumped up to 7.5mg but not often Rx Instructions: Take 1 tab (5mg) Sun/Wed/Wed/Wed/Sat and 0.5 tab (2.5mg) Tu/Th.; or use as directed Farxiga 10 mg tablet 10 mg PO DAILY Qty: 90 3RF Primary Care Provider: Roseline Barakat Referrals: Roseline Barakat MD [Primary Care Provider] - Print Language: Bel[place]an Disposition Disposition: Acute Care Hospital [facility] NIHSS NIHSS 1a. Level of Consciousness: 0 - Alert; keenly responsive 1b. LOC Questions: 0 - Answers BOTH questions correctly 1c. LOC Commands: 0 - Performs BOTH tasks correctly 2. Best Gaze: 0 - Normal 3. Visual: 0 - No visual loss 4. Facial Palsy: 0 - Normal symmetrical movements 5a. Left Arm: 0 - No drift; arm holds 90 (or 45) degrees for full 10 seconds 5b. Right Arm: 0 - No drift; arm holds 90 (or 45) degrees for full 10 seconds 6a. Left Le - No drift; leg holds 30-degree position for full 5 seconds 6b. Right Le - No drift; leg holds 30-degree position for full 5 seconds 7. Limb Ataxia: 0 - Absent 8. Sensory: 0 - Normal; no sensory loss 9. Best Language: 0 - No aphasia; normal 10. Dysarthria: 0 - Normal 11. Extinction and Inattention: 0 - No abnormality Total: 0 Stroke Questions Stroke Team Activated: Yes Reviewed Inclusion/Exclusion criteria: Yes Was Patient considered for Endovascular Intervention?: No IV Thrombolytic Administered: No What to do if you have Problems For any increased pain, shortness of breath, bleeding, nausea or vomiting, chestpain, or any unexpected problems, contact your Primary Care Provider. Call [facility] ([phone]) or report tothe closest Emergency Room. Call 911 if necessary. 01/25/25 1710 Cosigner Signature (if applicable): CC: Dr. Roseline Barakat MD ~ Signed [facility]05-15-2025 History and physical note Author Renée Fields [facility] Note Date/Time January 25, 2025 2:53p m [facility] Medical Records Department [address] [place] [address] H&P Exam - Hospitalist 01/25/25 1343 MR#: [id number] Acct: [id number] Name: EM DANIEL Rep #:[id number] : 1955 69 From: Renée Fields MD PCP: Dr. Roseline Barakat MD Status:REG ER Location: ED HPI - General General Date of Admission: 01/25/25 Date of Service: 01/25/25 Chief Complaint: LLE weakness, transient. HPI Narrative The patient is a 69 y/o F w/ PMHx: CKD stage III unclear subtype per GFR trending, Hx autoimmune thyroiditis with multinodular goiter, Hypertrophic cardiomyopathy, HTN, HLD, Chronic asthma, Former tobacco use, PAF, Valvular Heart Disease s/p MVR (mechanical), KEVIN who presents to [facility] ED on 01/25/2025 withhistory of sudden onset 45 minutes prior to arrival of left lower extremity weakness noting that she was walking around at a nursery looking at plants when suddenly her leg gave out with the daughter attempting to lift her but her left leg would not work although she was able to continue to use her left arm with symptoms improving with no paresthesias associated or other neurological symptoms prompting stroke alert and transition to the ED for evaluation. In theED stroke alert initiated and stroke alert evaluation per neurology with NIH stroke assessment 0 with suspicion for TIA. Workup in the ED included T98.3, heart 70, BP 111/56, respiratory rate 18, 97% room air with most recent repeat vitals heart rate 70, BP 104/53, respiratory rate 16, 99% room air, CBC with WBC5.3, hemoglobin 13.1, platelet 151 without marked shift, coags with INR 2.7, PT 29.1, PTT 36.5, BMP with At 18.5, BUN/creatinine 31/1.59, GFR 35, glucose 132, troponin 135, CT of the brain with no acute intracranial findings, CTA head and neck with minimal plaque formation the origin of the left ICA, EKG with paced rhythm with no acute evidence of ischemia, possible L BBB. 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 LOOM SETTER-D) Warfarin-induced coagulopathy Hypoxia Congestive heart failure Collar bone fracture Pacemaker A-fib Hypertrophic cardiomyopathy Home Medications ?Medication ?Instructions ?Recorded ?Last Taken ?Type aspirin 81 mg chewable tablet 81 mg PO DAILY heart hea lth 07/08/22 01/24/25 History (Rahul Chewable Low Dose Aspirin) spacer #1 ea 11/26/22 Unknown Rx warfarin 1 mg tablet 1 mg PO .COMPLEX 12/03/22 Un known History metoprolol succinate 50 mg 50 mg PO QDAY blood pressur e #180 05/22/24 01/24/25 Rx tablet,extended release 24 hr tabs (Toprol XL) torsemide 20 mg tablet 20 mg PO BID #180 tabs 12/1101/24/25 Rx spironolactone 25 mg tablet 25 mg PO DAILY #90 tabs 01/24/25 Rx warfarin 5 mg tablet 5 mg PO DAILY blood thinner #100 01/04/25 01/24/25 Rx tabs albuterol sulfate 90 mcg/actuation 2 puff inhalation Q 4H PRN 01/09/25 Unknown Rx aerosol inhaler shortness of breath or wheez ing #8.5 grams budesonide-formoterol HFA 160 2 inh inhalation BID #1 ea 01/09/25 01/24/25 Rx mcg-4.5 mcg/actuation aerosol inhaler (Symbicort) dapagliflozin propanediol 10 mg 10 mg PO DAILY #90 tab s 01/22/25 01/24/25 Rx tablet (Farxiga) Allergy/AdvReac Type Severity Reaction Status Date / Time No Known Allergies Allergy Verified 01/25/25 14:08 Family History Father Heart disease Grandmother Breast cancer Mother Heart disease Surgical History H/O cataract removal with insertion of prosthetic lens History of mitral valve replacement with mechanical valve Status post spinal disc removal History of hysterectomy Social History household members: family current occupation: works in a [employer] Smoking Status: Former smoker quit date: 09/13/83 pack-years: 1 Electronic Cigarette Use: not used how long ago did patient quit smokin years ago alcohol intake: current details: beer, on occasion substance use type: former substance user caffeine: Yes seatbelt use: always do you feel safe at home: Yes ROS ROS Narrative Admission Review of Systems: CONSTITUTIONAL: No weight loss, fever, chills, + weakness or fatigue. HEENT: Eyes: No visual loss, blurred vision, double vision or yellow sclerae. Ears, Nose, Throat: No hearing loss, sneezing, congestion, runny nose or sore throat. SKIN: No rash or itching, lesions, wounds except + occasional very stage ecchymoses. CARDIOVASCULAR: No chest pain, chest pressure or chest discomfort, palpitations,edema, orthopnea, syncopal events. RESPIRATORY: No shortness of breath, cough or sputum, wheezing, hemoptysis. GASTROINTESTINAL: No anorexia, nausea, vomiting or diarrhea, abdominal pain, melena, BRBPR. GENITOURINARY: No dysuria, frequency, urgency or retention. NEUROLOGICAL: + Transient left lower extremity weakness. No headache, dizziness, syncope, paralysis, ataxia, numbness or tingling in the extremities, change in bowel or bladder control, seizure. MUSCULOSKELETAL: No muscle, back pain, joint pain or stiffness. HEMATOLOGIC: No anemia. + Easy bleeding/bruising. LYMPHATICS: No enlarged nodes. No history of splenectomy. PSYCHIATRIC: No history of depression or anxiety. ENDOCRINOLOGIC: No reports of sweating, cold or heat intolerance. No polyuria orpolydipsia. ALLERGIES: + History of asthma. Vital Signs Vital Signs Vital Signs: 01/25/25 11:58 01/25/25 12:02 01/25/25 12:02 Temperature 98.3 F Temperature Source Oral Pulse Rate 70 Respiratory Rate 18 16 Blood Pressure 111/56 L 114/70 Blood Pressure Mean 74 84 Pulse Ox 97 99 Oxygen Delivery Method Room Air Room Air Room Air 01/25/25 12:32 01/25/25 12:32 01/25/25 13:00 Temperature Temperature Source Pulse Rate 70 70 70 Respiratory Rate 16 16 16 Blood Pressure 113/73 113/74 104/58 L Blood Pressure Mean 86 87 73 Pulse Ox 99 99 99 Oxygen Delivery Method 01/25/25 13:02 01/25/25 13:30 01/25/25 13:30 Temperature Temperature Source Pulse Rate 70 70 70 Respiratory Rate 16 16 16 Blood Pressure 104/53 L 109/75 109/75 Blood Pressure Mean 70 86 86 Pulse Ox 99 99 99 Oxygen Delivery Method Weight Weight: 136 lb 7.458 oz Body Mass Index (BMI) 22.6 Physical Exam Narrative Physical Examination: General: Awake, alert, oriented x 3 and cooperative, seated upright in the ED bed, reports continued complete resolution of left lower extremity weakness Skin: Normal color, normal turgor, no icterus, no cyanosis except occasional stage ecchymoses. HEENT: AT/NC, EOMI, PERRLA, MMM, no carotid bruits or JVD noted. Lungs: Diminished, greater bases, appropriate effort, no rales, ronchi or wheezing. Heart: Regular rate and rhythm; no gallop, rub audible, prostatic click. Abdomen: Soft, NTTP, ND, normal BS, no appreciated HSM. Extremities: No cyanosis, clubbing, or edema. Neurological: Patient awake, alert, oriented as noted, cognitive function intact; pupils equally reactive to light and accommodation, cranial nerves grossnormal, moving all 4 extremities, no focal deficits, sensation intact, strength appropriate, finger-nose and heel cortez appropriate. Psychiatric: Affect appears normal, no acute evidence of depressive or anxiety feelings. Results Lab / Micro Data 01/25/25 11:59 01/25/25 11:59 Labs: Laboratory Results - last 24 hr 01/25/25 11:59: WBC 5.3, RBC 4.43, Hgb 13.1, Hct 40.1, MCV 90.5, MCH 29.6, MCHC 32.7, RDW Std Deviation 50.5 H, RDW Coeff of Sona 15.4 H, Plt Count 151, MPV 9.3,Immature Gran % (Auto) 0.400, Neut % (Auto) 64.9, Lymph % (Auto) 19.3, [place] % (Auto) 12.9 H, Eos % (Auto) 1.9, Baso % (Auto) 0.6, Absolute Neuts (auto) 3.4, Absolute Lymphs (auto) 1.02, Nucleated RBC % 0, PT 29.1 H, INR 2.7, APTT 36.5 H,Sodium 138, Potassium 4.0, Chloride 106, Carbon Dioxide 18.5 L, Anion Gap 14, BUN 31 H, Creatinine 1.59 H, Estim Creat Clear Calc 29.63 L, Est GFR (MDRD) Non-Af 35 L, BUN/Creatinine Ratio 19.2, Glucose 132 H, Calcium 9.4, Troponin T High Sens 135 H* Imaging Radiology Impression Brain CT 01/25/25 12:02 IMPRESSION: CHRONIC CHANGES. NO ACUTE FINDINGS. Red Alert: Nothing acute The critical information above was relayed directly by me by telephone to Ady Lizarraga on 01/25/2025 at 12:12 pm with readback verification. Reading Location: [id number] Head/Neck CTA 01/25/25 12:02 IMPRESSION: Minimal plaque formation at the origin of left internal carotid artery. Red Alert: Minimal placque at origin of Left ICA The critical information above was relayed directly by me by telephone to Ady Lizarraga on 01/25/2025 at 12:28 pm with readback verification. Reading Location: [id number] Assessment & Plan Assessment/Plan (1) TIA (transient ischemic attack): PLAN: Plan The patient is a 69 y/o F w/ PMHx: CKD stage III unclear subtype per GFR trending, Hx autoimmune thyroiditis with multinodular goiter, Hypertrophic cardiomyopathy, HTN, HLD, Chronic asthma, Former tobacco use, PAF, Valvular Heart Disease s/p MVR (mechanical), KEVIN who presents to [facility] ED on 01/25/2025 withhistory of sudden onset 45 minutes prior to arrival of left lower extremity weakness noting that she was walking around at a nursery looking at plants when suddenly her leg gave out with the daughter attempting to lift her but her left leg would not work although she was able to continue to use her left arm with symptoms improving with no paresthesias associated or other neurological symptoms prompting stroke alert and transition to the ED for evaluation. #1. Left lower extremity weakness, resolved concerning for TIA: Will admit to PCU, patient is unable to have MRI thus we will plan for repeat CT head in 24 hours, will obtain ECHO as most recent done remotely, PT/OT/Speech/Nutrition evaluation per protocol. Will allow permissive HTN, maintain on asa and Coumadin with INR trending, will initiate statin w/ AM FLP, fall precautions. Mag, TSH, FLP, HgbA1c requested. Maintain on fall and aspiration precautions. Will continue neurology consultation. #2. Elevated cardiac enzyme of unclear significance, noted chronically elevated: EKG with paced rhythm with no acute evidence of ischemia, possible L BBB, initial trop 135. Will maintain on a monitored bed to assure no acute myocardial infarction with serial cardiac enzymes and EKGs. Magnesium level requested. FLP in AM. Continued on Coumadin with INR trending as well as baby aspirin. Echocardiogram requested. Given presentation with evaluation #1 will continue and once stroke workup clarified may then consider involvement of cardiology if appropriate at that time. Status post AICD as noted, interrogation requested. #3. Chronic Kidney Disease Stage III, unclear subtype per GFR trend: Admission BUN/Cr 31/1.59, GFR 35, baseline renal function primarily 1.4-1.8, most recently12/07/2024 creatinine 1.87, repeat BMP in AM. #4. 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 Velez, per most recent reported note 08/07/2024 continued plan for routine annual thyroid level assessments as well as thyroid ultrasound assessments, encourage continued follow-up with endocrinology and PCP as previously arranged. #5. Hypertrophic cardiomyopathy: Status post AICD, most recent noted echocardiogram 09/27/2023 with normal LV size, EF 35%, severely enlarged LA, mildto moderate TBI, PASP 52 mmHg, mild pulmonary hypertension, stable appearing mechanical mitral valve apparatus. Interrogation requested given elevated cardiac enzyme as noted. Will continue baby aspirin, Coumadin with INR trending, temporarily holding hypertensive regimen for permissive hypertension with readdition once appropriate, not on statin therapy which will be added as noted given presentation #1. #6. PAF: Will temporally hold metoprolol for permissive hypertension given presentation as noted #1, continue Coumadin with INR trending. #7. Chronic asthma: Will temporarily hold home inhalers in the interim transition to ATC budesonide therapy, PRN albuterol, HOB, IS parameters. #8. Valvular heart disease: Status post mitral valve replacement with mechanical valve, continue Coumadin with INR trending. Most recent noted echocardiogram 09/27/2023 with normal LV size, EF 35%, severely enlarged LA, mildto moderate TBI, PASP 52 mmHg, mild pulmonary hypertension, stable appearing mechanical mitral valve apparatus. #9. Hypertension: Will maintain permissive hypertension given #1 with as neededagents per stroke protocol. #10. Hyperlipidemia: Per current list not on regimen, FLP in AM, statin added given #1. #11. KEVIN: Noted history of central sleep apnea, continue PAP therapy, noted [id number] on ASV. #12. Former tobacco use: Encourage continued tobacco cessation. #13. DVT prophylaxis: Continue Coumadin with INR trending. #14. CODE status: Patient HCPOA and living will are not in place but she notes her 2 daughters would be her medical decision makers if necessary. Discussed CODE status at length including difference between FULL code, DNR-CCA and DNR-CCstatus. Following discussions about the differences in these status, requested Full Code status. Advanced Care Planning Face to Face Time: 16 minutes. Charges/Coding Visit Charges Inpatient E&M: 68178 Init Hosp L2 Procedures Hospitalists Procedures: 12433 Advncd Care Plan 30 Min 01/25/25 1453 <Electronically signed by Renée Fields MD> Cosigner Signature (if applicable): CC: Dr. Roseline Barakat MD; Dr. Rneée Fields MD~ Signed [facility] Work Phone: [phone]) [phone] History and physical note [facility] Medical Records Department [address] [place] [address] H&P Exam - Hospitalist 01/25/25 1343 MR#: [id number] Acct: [id number] Name: EM DANIEL SUZETTE Rep #:[id number] 2 : 1955 69 From: Renée Fields MD PCP: Dr. Roseline Barakat MD Status:REG ER Location: ED HPI - General General Date of Admission: 01/25/25 Date of Service: 01/25/25 Chief Complaint: LLE weakness, transient. HPI Narrative The patient is a 69 y/o F w/ PMHx: CKD stage III unclear subtype per GFR trending, Hx autoimmune thyroiditis with multinodular goiter, Hypertrophic cardiomyopathy, HTN, HLD, Chronic asthma, Former tobacco use, PAF, Valvular Heart Disease s/p MVR (mechanical), KEVIN who presents to [facility] ED on 01/25/2025 withhistory of sudden onset 45 minutes prior to arrival of left lower extremity weakness noting that she was walking around at a nursery looking at plants when suddenly her leg gave out with the daughter attempting to lift her but her left leg would not work although she was able to continue to useher left arm with symptoms improving with no paresthesias associated or other neurological symptomsprompting stroke alert and transition to the ED for evaluation. In theED stroke alert initiated andstroke alert evaluation per neurology with NIH stroke assessment 0 with suspicion for TIA. Workup in the ED included T98.3, heart 70, BP 111/56, respiratory rate 18, 97% room air with most recent repeat vitals heart rate 70, BP 104/53, respiratory rate 16, 99% room air, CBC with WBC5.3, hemoglobin 13.1, platelet 151 without marked shift, coags with INR 2.7, PT 29.1, PTT 36.5, BMP with At 18.5, BUN/creatinine 31/1.59, GFR 35, glucose 132, troponin 135, CT of the brain with no acute intracranial findings, CTA head and neck with minimal plaque formation the origin of the left ICA, EKG with paced rhythm with no acute evidence of ischemia, possible L BBB. 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 LOOM SETTER-D) Warfarin-induced coagulopathy Hypoxia Congestive heart failure Collar bone fracture Pacemaker A-fib Hypertrophic cardiomyopathy Home Medications ?Medication ?Instructions ?Recorded ?Last Taken ?Type aspirin 81 mg chewable tablet 81 mg PO DAILY heart hea lth 07/08/22 01/24/25 History (Rahul Chewable Low Dose Aspirin) spacer #1 ea 11/26/22 Unknown Rx warfarin 1 mg tablet 1 mg PO .COMPLEX 12/03/22 Un known History metoprolol succinate 50 mg 50 mg PO QDAY blood pressur e #180 05/22/24 01/24/25 Rx tablet,extended release 24 hr tabs (Toprol XL) torsemide 20 mg tablet 20 mg PO BID #180 tabs 12/1101/24/25 Rx spironolactone 25 mg tablet 25 mg PO DAILY #90 tabs 01/24/25 Rx warfarin 5 mg tablet 5 mg PO DAILY blood thinner #100 01/04/25 01/24/25 Rx tabs albuterol sulfate 90 mcg/actuation 2 puff inhalation Q 4H PRN 01/09/25 Unknown Rx aerosol inhaler shortness of breath or wheez ing #8.5 grams budesonide-formoterol HFA 160 2 inh inhalation BID #1 ea 01/09/25 01/24/25 Rx mcg-4.5 mcg/actuation aerosol inhaler (Symbicort) dapagliflozin propanediol 10 mg 10 mg PO DAILY #90 tab s 01/22/25 01/24/25 Rx tablet (Farxiga) Allergy/AdvReac Type Severity Reaction Status Date / Time No Known Allergies Allergy Verified 01/25/25 14:08 Family History Father Heart disease Grandmother Breast cancer Mother Heart disease Surgical History H/O cataract removal with insertion of prosthetic lens History of mitral valve replacement with mechanical valve Status post spinal disc removal History of hysterectomy Social History household members: family 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 HEENT: Eyes: No visual loss, blurred vision, double vision or yellow sclerae. Ears, Nose, Throat: No hearing loss, sneezing, congestion, runny nose or sore throat. SKIN: No rash or itching, lesions, wounds except + occasional very stage ecchymoses. CARDIOVASCULAR: No chest pain, chest pressure or chest discomfort, palpitations,edema, orthopnea, syncopal events. RESPIRATORY: No shortness of breath, cough or sputum, wheezing, hemoptysis. GASTROINTESTINAL: No anorexia, nausea, vomiting or diarrhea, abdominal pain, melena, BRBPR. GENITOURINARY: No dysuria, frequency, urgency or retention. NEUROLOGICAL: + Transient left lower extremity weakness. No headache, dizziness, syncope, paralysis, ataxia, numbness or tingling in the extremities, change in bowel or bladder control, seizure. MUSCULOSKELETAL: No muscle, back pain, joint pain or stiffness. HEMATOLOGIC: No anemia. + Easy bleeding/bruising. LYMPHATICS: No enlarged nodes. No history of splenectomy. PSYCHIATRIC: No history of depression or anxiety. ENDOCRINOLOGIC: No reports of sweating, cold or heat intolerance. No polyuria orpolydipsia. ALLERGIES: + History of asthma. Vital Signs Vital Signs Vital Signs: 01/25/25 11:58 01/25/25 12:02 01/25/25 12:02 Temperature 98.3 F Temperature Source Oral Pulse Rate 70 Respiratory Rate 18 16 Blood Pressure 111/56 L 114/70 Blood Pressure Mean 74 84 Pulse Ox 97 99 Oxygen Delivery Method Room Air Room Air Room Air 01/25/25 12:32 01/25/25 12:32 01/25/25 13:00 Temperature Temperature Source Pulse Rate 70 70 70 Respiratory Rate 16 16 16 Blood Pressure 113/73 113/74 104/58 L Blood Pressure Mean 86 87 73 Pulse Ox 99 99 99 Oxygen Delivery Method 01/25/25 13:02 01/25/25 13:30 01/25/25 13:30 Temperature Temperature Source Pulse Rate 70 70 70 Respiratory Rate 16 16 16 Blood Pressure 104/53 L 109/75 109/75 Blood Pressure Mean 70 86 86 Pulse Ox 99 99 99 Oxygen Delivery Method Weight Weight: 136 lb 7.458 oz Body Mass Index (BMI) 22.6 Physical Exam Narrative Physical Examination: General: Awake, alert, oriented x 3 and cooperative, seated upright in the ED bed, reports continued complete resolution of left lower extremity weakness Skin: Normal color, normal turgor, no icterus, no cyanosis except occasional stage ecchymoses. HEENT: AT/NC, EOMI, PERRLA, MMM, no carotid bruits or JVD noted. Lungs: Diminished, greater bases, appropriate effort, no rales, ronchi or wheezing. Heart: Regular rate and rhythm; no gallop, rub audible, prostatic click. Abdomen: Soft, NTTP, ND, normal BS, no appreciated HSM. Extremities: No cyanosis, clubbing, or edema. Neurological: Patient awake, alert, oriented as noted, cognitive function intact; pupils equally reactive to light and accommodation, cranial nerves grossnormal, moving all 4 extremities, no focal deficits, sensation intact, strength appropriate, finger-nose and heel cortez appropriate. Psychiatric: Affect appears normal, no acute evidence of depressive or anxiety feelings. Results Lab / Micro Data 01/25/25 11:59 01/25/25 11:59 Labs: Laboratory Results - last 24 hr 01/25/25 11:59: WBC 5.3, RBC 4.43, Hgb 13.1, Hct 40.1, MCV 90.5, MCH 29.6, MCHC 32.7, RDW Std Deviation 50.5 H, RDW Coeff of Sona 15.4 H, Plt Count 151, MPV 9.3,Immature Gran % (Auto) 0.400, Neut % (Auto) 64.9, Lymph % (Auto) 19.3, [place] % (Auto) 12.9 H, Eos % (Auto) 1.9, Baso % (Auto) 0.6, Absolute Neuts (auto) 3.4, Absolute Lymphs (auto) 1.02, Nucleated RBC % 0, PT 29.1 H, INR 2.7, APTT 36.5 H,Sodium 138, Potassium 4.0, Chloride 106, Carbon Dioxide 18.5 L, Anion Gap 14, BUN 31 H, Creatinine 1.59 H, Estim Creat Clear Calc 29.63 L, Est GFR (MDRD) Non- Af 35 L, BUN/Creatinine Ratio 19.2, Glucose 132 H, Calcium 9.4, Troponin T High Sens 135 H* Imaging Radiology Impression Brain CT 01/25/25 12:02 IMPRESSION: CHRONIC CHANGES. NO ACUTE FINDINGS. Red Alert: Nothing acute The critical information above was relayed directly by me by telephone to Ady Lizarraga on 01/25/2025 at 12:12 pm with readback verification. Reading Location: [id number] Head/Neck CTA 01/25/25 12:02 IMPRESSION: Minimal plaque formation at the origin of left internal carotid artery. Red Alert: Minimal placque at origin of Left ICA The critical information above was relayed directly by me by telephone to Ady Lizarraga on 01/25/2025 at 12:28 pm with readback verification. Reading Location: [id number] Assessment & Plan Assessment/Plan (1) TIA (transient ischemic attack): PLAN: Plan The patient is a 69 y/o F w/ PMHx: CKD stage III unclear subtype per GFR trending, Hx autoimmune thyroiditis with multinodular goiter, Hypertrophic cardiomyopathy, HTN, HLD, Chronic asthma, Former tobacco use, PAF, Valvular Heart Disease s/p MVR (mechanical), KEVIN who presents to [facility] ED on 01/25/2025 withhistory of sudden onset 45 minutes prior to arrival of left lower extremity weakness noting that she was walking around at a nursery looking at plants when suddenly her leg gave out with the daughter attempting to lift her but her left leg would not work although she was able to continue to useher left arm with symptoms improving with no paresthesias associated or other neurological symptomsprompting stroke alert and transition to the ED for evaluation. #1. Left lower extremity weakness, resolved concerning for TIA: Will admit to PCU, patient is unable to have MRI thus we will plan for repeat CT head in 24 hours, will obtain ECHO as most recent doneremotely, PT/OT/Speech/Nutrition evaluation per protocol. Will allow permissive HTN, maintain on asa and Coumadin with INR trending, will initiate statin w/ AM FLP, fall precautions. Mag, TSH, FLP, HgbA1c requested. Maintain on fall and aspiration precautions. Will continue neurology consultation. #2. Elevated cardiac enzyme of unclear significance, noted chronically elevated: EKG with paced rhythm with no acute evidence of ischemia, possible L BBB, initial trop 135. Will maintain on a monitored bed to assure no acute myocardial infarction with serial cardiac enzymes and EKGs. Magnesium level requested. FLP in AM. Continued on Coumadin with INR trending as well as baby aspirin. Echocardiogram requested. Given presentation with evaluation #1 will continue and once stroke workup clarified may then consider involvement of cardiology if appropriate at that time. Status post AICD as noted, interrogation requested. #3. Chronic Kidney Disease Stage III, unclear subtype per GFR trend: Admission BUN/Cr 31/1.59, GFR 35, baseline renal function primarily 1.4-1.8, most recently12/07/2024 creatinine 1.87, repeat BMP Vishal. #4. 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 Velez, per most recent reported note 08/07/2024 continued plan for routine annual thyroid level assessments as well as thyroid ultrasound assessments, encourage continued follow-up with endocrinology and PCP as previously arranged. #5. Hypertrophic cardiomyopathy: Status post AICD, most recent noted echocardiogram 09/27/2023 with normal LV size, EF 35%, severely enlarged LA, mildto moderate TBI, PASP 52 mmHg, mild pulmonary hypertension, stable appearing mechanical mitral valve apparatus. Interrogation requested given elevatedcardiac enzyme as noted. Will continue baby aspirin, Coumadin with INR trending, temporarily holding hypertensive regimen for permissive hypertension with readdition once appropriate, not on statin therapy which will be added as noted given presentation #1. #6. PAF: Will temporally hold metoprolol for permissive hypertension given presentation as noted #1, continue Coumadin with INR trending. #7. Chronic asthma: Will temporarily hold home inhalers in the interim transition to ATC budesonidetherapy, PRN albuterol, HOB, IS parameters. #8. Valvular heart disease: Status post mitral valve replacement with mechanical valve, continue Coumadin with INR trending. Most recent noted echocardiogram 09/27/2023 with normal LV size, EF 35%, severely enlarged [place], mildto moderate TBI, PASP 52 mmHg, mild pulmonary hypertension, stable appearingmechanical mitral valve apparatus. #9. Hypertension: Will maintain permissive hypertension given #1 with as neededagents per stroke protocol. #10. Hyperlipidemia: Per current list not on regimen, FLP in AM, statin added given #1. #11. KEVIN: Noted history of central sleep apnea, continue PAP therapy, noted AHI47 on ASV. #12. Former tobacco use: Encourage continued tobacco cessation. #13. DVT prophylaxis: Continue Coumadin with INR trending. #14. CODE status: Patient HCPOA and living will are not in place but she notes her 2 daughters would be her medical decision makers if necessary. Discussed CODE status at length including difference between FULL code, DNR-CCA and DNR- CCstatus. Following discussions about the differences in these status, requested Full Code status. Advanced Care Planning Face to Face Time: 16 minutes. Charges/Coding Visit Charges Inpatient E&M: 95413 Init Hosp L2 Procedures Hospitalists Procedures: 44050 Advncd Care Plan 30 Min 01/25/25 5663 Cosigner Signature (if applicable): CC: Dr. Roseline Barakat MD; Dr. Renée Fields MD~ Signed [facility]05-15-2025 Radiology Diagnostic study note [facility] [address] [place], [place] [address] STROKE CTA Head AND Neck W/Con MR#: [id number] Acct: [id number] Name: EM DANIEL SUZETTE Rep #: [id number] : 1955 F 69 From: Sunny Mejía MD PCP: Dr. Roseline Barakat MD Status: REG ER Study:STROKE CTA Head AND Neck W/Con Date of Exam: 01/25/25 Exam# [id number] Ordering Dr: Ady Lizarraga DO PROCEDURE: STROKE CTA HEAD AND NECK W/CON 01/25/2025 REASON FOR EXAM: NEURO DEFICIT, ACUTE, STROKE SUSPECTED TECHNIQUE: CTA imaging of the head and neck from the aortic arch to the skull vertex with out contrast and with intravenous contrast. Multiplanar and multisequence images were obtained. CONTRAST: Isovue 370 VOLUME: 100 mL One or more dose reduction techniques were used (e.g., Automated exposure control, adjustment of the mA and/or kV according to patient size, use of iterative reconstruction technique). RADIATION DOSE SUMMARY: CTDlvol: 28 mGy DLP: 943.05 mGycm COMPARISON: None FINDINGS: Aortic Arch: Normal size and branching pattern. Mild atherosclerotic plaque. Prior CABG. Brachiocephalic and Subclavians: Mild atherosclerotic plaque without significantstenosis. There is evidence of mediastinal lymphadenopathy. RIGHT Carotid: Right CCA: Unremarkable. Right ICA: Unremarkable. Right ECA: Unremarkable. LEFT Carotid: Left CCA: Unremarkable. Left ICA: Minimal calcific plaque at the origin of the left internal carotid artery. Maximum stenosis (NASCET): <50 % Left ECA: Unremarkable. Vertebrals: Codominant. Arise from the subclavians. Both vertebrals form the basilar. RIGHT Vertebral: Unremarkable. LEFT Vertebral: Unremarkable. Anatomy: [place] anatomy is normal. Aneurysm or avm: No intracranial aneurysms or large vascular malformations are identified. Anterior cerebral arteries: Unremarkable: Middle cerebral arteries: Unremarkable. Basilar artery: Unremarkable. Posterior cerebral arteries: origin of the right posterior cerebral artery. Other major branches of the posterior circulation: Unremarkable. Major venous structures: Unremarkable. CT/STROKE CTA Head AND Neck W/Con IMPRESSION: Minimal plaque formation at the origin of left internal carotid artery. Red Alert: Minimal placque at origin of Left ICA The critical information above was relayed directly by me by telephone to Ady Lizarraga on 01/25/2025 at 12:28 pm with readback verification. Reading Location: [id number] CC: Dr. Roseline Barakat MD; Dr. Ady Lizarraga DO ~ Office Workforce Planner: Signed [facility]05-15-2025 Radiology Diagnostic study note [facility] [address] [place] [address] [id number] STROKE Brain/Head without Cont MR#: [id number] Acct: [id number] Name: EM DANIEL SUZETTE Rep #: [id number] : 1955 F 69 From: Sunny Mejía MD PCP: Dr. Roseline Barakat MD Status: REG ER Study:STROKE Brain/Head without Cont Date of Exam: 01/25/25 Exam# [id number] Ordering Dr: Ady Lizarraga DO PROCEDURE: STROKE BRAIN/HEAD WITHOUT CONT 01/25/2025 REASON FOR EXAM: NEURO DEFICIT, ACUTE, STROKE SUSPECTED TECHNIQUE: Head CT without intravenous contrast. Coronal and Sagittal reconstruction serieswere provided. One or more dose reduction techniques were used (e.g., Automated exposure control, adjustment of the mA and/or kV according to patient size, use of iterative reconstruction technique. RADIATION DOSE SUMMARY: CTDlvol: 47.06 mGy DLP: 872.68 mGycm COMPARISON: None FINDINGS: Brain: Low density in the periventricular white matter suggests mild chronic small vessel ischemic changes. CSF Spaces: Mild generalized cerebral atrophy focal encephalomalacia in the leftfrontal parietal lobe suggestive of old ischemic change. Sinuses/Mastoids: Clear at visualized levels Bones: Unremarkable Atherosclerotic calcification of the cavernous portions of the internal carotid arteries. CT/STROKE Brain/Head without Cont IMPRESSION: CHRONIC CHANGES. NO ACUTE FINDINGS. Red Alert: Nothing acute The critical information above was relayed directly by me by telephone to Ady Lizarraga on 01/25/2025 at 12:12 pm with readback verification. Reading Location: [id number] CC: Dr. Roseline Barakat MD; Dr. Ady Lizarraga, DO ~ Office Workforce Planner: Signed [facility]04-01-2025 Evaluation note* Diagnosis Onset Date Resolution Status Admit Date Congestive heart failure acute December 12, 2024 9:26am Presence of cardiac resynchronization therapy defibrillator (NEEDLE LOOM SETTER-D) acute December 12, 2024 9:26am Hypertrophic cardiomyopathy chronic December 12, 2024 9:26am A-fib acute December 12 9:30am Congestive heart failure acute December 12, 2024 9:30am Pacemaker acute December 12 9:30am Hypertrophic cardiomyopathy chronic December 12, 2024 9:30am H/O mitral valve replacement resolve d December 12, 2024 9:30am Asthma chronic January 09 9:25am Central sleep apnea chronic January 09, 2025 9:25am Hypertrophic cardiomyopathy chronic January 09, 2025 9:25am TIA (transient ischemic attack) acut e January 25, 2025 1:44pm [facility] Work Phone: 1(980) 442-447004-01-2025 Evaluation note* Diagnosis Onset Date Resolution Status Admit Date Congestive heart failure acute December 12, 2024 9:26am Presence of cardiac resynchronization therapy defibrillator (NEEDLE LOOM SETTER-D) acute December 12, 2024 9:26am Hypertrophic cardiomyopathy chronic December 12, 2024 9:26am A-fib acute December 12 9:30am Congestive heart failure acute December 12, 2024 9:30am Pacemaker acute December 12 9:30am Hypertrophic cardiomyopathy chronic December 12, 2024 9:30am H/O mitral valve replacement resolve d December 12, 2024 9:30am Asthma chronic January 09 9:25am Central sleep apnea chronic January 09, 2025 9:25am Hypertrophic cardiomyopathy chronic January 09, 2025 9:25am TIA (transient ischemic attack) nesha jian January 25, 2025 1:44pm Dyspnea acute February 08, 2025 2:30pm Asthma chronic February 08, 2025 2:30pm Central sleep apnea chronic January 122024 2:30pm [facility] Work Phone: 1(645) 877-657003-01-2024 NoteHNO ID: [id number] Author: JOHNSON DUVAL RN Service: ? Author Type: Registered Nurse Type: Progress Notes Filed: 11/12/2023 15:58 Note Text: CDM ENROLLMENT - chf, ckd, htn Provider Action / FYI: Contact Made with Patient: No, left a message. Johnson Duval RN November 12, 2023 3:[address] [facility]03-01-2024 History of Present illness Narrative* Johnson Duval RN - 11/12/2023 3:49 PM EST CDM ENROLLMENT - chf, ckd, htn Provider Action / FYI: Contact Made with Patient: No, left a message. Johnson Duval RN November 12, 2023 3:57 PM * Johnson Duval RN - 11/11/2023 1:41 PM EST CDM ENROLLMENT - chf, ckd, htn Provider Action / FYI: Contact Made with Patient: No, unable to leave a message. Will reattempt the call. Johnson Duval RN November 11, 2023 1:45 PM * Johnson Duval RN - 11/10/2023 8:45 AM EST CDM ENROLLMENT - chf, ckd, htn Provider Action / FYI: Contact Made with Patient: No, left a message. Johnson Duval RN November 10, 2023 11:46 AM documented in this encounterTr[facility]24 NoteHNO ID: [id number] Author: JOHNSON DUVAL RN Service: ? Author Type: Registered Nurse Type: Progress Notes Filed: 11/12/2023 15:58 Note Text: CDM ENROLLMENT - chf, ckd, htn Provider Action / FYI: Contact Made with Patient: No, unable to leave a message. Will reattempt the call. Johnson Duavl RN November 11, 2023 1:[address] [facility]02-28-2024 NotePatient Outreach (AMBC[facility]) EM DANIEL ([id number]) 1955 F CHT Date Time Provider Department 11/10/23 JOHNSON DUVAL AM[facility] During your visit today, we recorded the following information about you: Johnson Duval RN 11/12/2023 3:58 PM Signed CDM ENROLLMENT - chf, ckd, htn Provider Action / FYI: Contact Made with Patient: No, left a message. Johnson Duval RN November 10, 2023 11:46 AM Johnson Duval RN 11/12/2023 3:58 PM Signed CDM ENROLLMENT - chf, ckd, htn Provider Action / FYI: Contact Made with Patient: No, unable to leave a message. Will reattempt the call. Johnson Duval RN November 11, 2023 1:45 PM Johnson Duval RN 11/12/2023 3:58 PM Signed CDM ENROLLMENT - chf, ckd, htn Provider Action / FYI: Contact Made with Patient: No, left a message. Johnson Duval RN November 12, 2023 3:57 PM Allergies As of Date: 11/10/2023 (No Known Allergies) Date Reviewed: 12/15/2022 Reviewed by: Maya Vera MA - Fully Assessed Reason for Visit: cdm [Other] Cmt: enrollment Prescriptions as of 11/12/2023 - warfarin (COUMADIN) 5 mg tablet 7.5 mg , Wednesday, 5 mg daily or as directed - warfarin (COUMADIN) 1 mg tablet 7.5 mg , Wednesday, 5 mg daily or as directed - potassium chloride (K-TAB) 10 mEq tablet Take 1 tablet by mouth daily with breakfast. - pantoprazole DR (PROTONIX) 40 mg tablet Take 1 tablet by mouth once daily. - methIMAzole (TAPAZOLE) 5 mg tablet Take 0.5 tablets by mouth every other day. - spironolactone (ALDACTONE) 25 mg tablet Take 1 tablet by mouth twice daily. - torsemide (DEMADEX) 20 mg tablet Take 1 tablet by mouth three times daily. - metoprolol succinate ER (TOPROL XL) 50 mg 24 hr tablet Take 1 tablet by mouth once daily. - aspirin 81 mg chewable tablet Take 81 mg by mouth once daily. - multivitamin tablet Take 1 tablet by mouth once daily. Problem List As Of Date 11/10/2023 Noted Resolved Hypertrophic obstructive cardiomyopathy (HCC) [*05/01/2015 AICD (automatic cardioverter/defibrillator) pre*05/01/2015 Atrial fibrillation (HCC) [I48.91] 05/01/2015 Hyperthyroidism [E05.90] 05/01/2015 DDD (degenerative disc disease), cervical [M50.*05/01/2015 Vertebral compression fracture (HCC) [M48.50XA] 05/01/2015 Other allergic rhinitis [J30.89] 05/01/2015 GERD (gastroesophageal reflux disease) [K21.9] 05/01/2015 S/P MVR (mitral valve repair) [Z98.890] 08/01/2020 Pulmonary hypertension (HCC) [I27.20] 08/01/2020 Essential hypertension [I10] 08/01/2020 History of transient ischemic attack (TIA) [Z86*08/01/2020 Diarrhea [R19.7] 08/01/2020 Osteopenia, senile [M85.80] 01/21/2021 Stage 3b chronic kidney disease (HCC) [N18.32] 01/21/2021 Hypoxia [R09.02] 09/14/2021 COVID [U07.1] 09/14/2021 09/17/2021 GI bleed [K92.2] 10/01/2021 Acute blood loss anemia [D62] 10/01/2021 NARCISO (acute kidney injury) (HCC) [N17.9] 10/01/2021 Malnutrition of mild degree (HCC) [E44.1] 10/03/2021 Malnutrition of moderate degree (HCC) [E44.0] 10/07/2021 Chronic gastric ulcer [K25.7] H/O mitral valve replacement [Z95.2] 05/11/2022 V tach (HCC) [I47.20] 05/11/2022 HOCM (hypertrophic obstructive cardiomyopathy) *05/11/2022 HTN (hypertension) [I10] 05/11/2022 ICD (implantable cardioverter-defibrillator) in*05/11/2022 Tachycardia [R00.0] 05/11/2022 TIA (transient ischemic attack) [G45.9] 05/11/2022 Encounter Status:Closed by JOHNSON DUVAL on 11/12/23[facility] 11-10-2023 NoteHNO ID: [id number] Author: JOHNSON DUVAL RN Service: ? Author Type: Registered Nurse Type: Progress Notes Filed: 11/12/2023 15:58 Note Text: CDM ENROLLMENT - chf, ckd, htn Provider Action / FYI: Contact Made with Patient: No, left a message. Johnson Duval RN November 10, 2023 11:46 [facility]02-07-2024 NoteHNO ID: [id number] Author: MARY PALMER MA Service: ? Author Type: Supervisor [employer] Type: Progress Notes Filed: 10/21/2023 07:09 Note Text: Value Hub Review Provider Action / FYI: QAE - No exclusions. Added to CDM enrollment shared list. Upon review of patient chart, does patient meet exclusion criteria? No [facility]11-22-2023 NotePatient Outreach (INTMMN) BRYCEEM Benson ([id number]) 1955 F T Date Time Provider Department 08/04/23 YORDY ALLEN During your visit today, we recorded the following information about you: Allergies As of Date: 08/04/2023 (No Known Allergies) Date Reviewed: 12/15/2022 Reviewed by: Maya Vera MA - Fully Assessed Visit Diagnosis:Encounter for screening mammogram for breast cancer [Z12.31] Order(s):[facility] SCREENING [[id number]] Order #: [id number] FUTURE Prescriptions as of 08/09/2023 - warfarin (COUMADIN) 5 mg tablet 7.5 mg , Wednesday, 5 mg daily or as directed - warfarin (COUMADIN) 1 mg tablet 7.5 mg , Wednesday, 5 mg daily or as directed - potassium chloride (K-TAB) 10 mEq tablet Take 1 tablet by mouth daily with breakfast. - pantoprazole DR (PROTONIX) 40 mg tablet Take 1 tablet by mouth once daily. - methIMAzole (TAPAZOLE) 5 mg tablet Take 0.5 tablets by mouth every other day. - spironolactone (ALDACTONE) 25 mg tablet Take 1 tablet by mouth twice daily. - torsemide (DEMADEX) 20 mg tablet Take 1 tablet by mouth three times daily. - metoprolol succinate ER (TOPROL XL) 50 mg 24 hr tablet Take 1 tablet by mouth once daily. - aspirin 81 mg chewable tablet Take 81 mg by mouth once daily. - multivitamin tablet Take 1 tablet by mouth once daily. Problem List As Of Date 08/04/2023 Noted Resolved Hypertrophic obstructive cardiomyopathy (HCC) [*05/01/2015 AICD (automatic cardioverter/defibrillator) pre*05/01/2015 Atrial fibrillation (HCC) [I48.91] 05/01/2015 Hyperthyroidism [E05.90] 05/01/2015 DDD (degenerative disc disease), cervical [M50.*05/01/2015 Vertebral compression fracture (HCC) [M48.50XA] 05/01/2015 Other allergic rhinitis [J30.89] 05/01/2015 GERD (gastroesophageal reflux disease) [K21.9] 05/01/2015 S/P MVR (mitral valve repair) [Z98.890] 08/01/2020 Pulmonary hypertension (HCC) [I27.20] 08/01/2020 Essential hypertension [I10] 08/01/2020 History of transient ischemic attack (TIA) [Z86*08/01/2020 Diarrhea [R19.7] 08/01/2020 Osteopenia, senile [M85.80] 01/21/2021 Stage 3b chronic kidney disease (HCC) [N18.32] 01/21/2021 Hypoxia [R09.02] 09/14/2021 COVID [U07.1] 09/14/2021 09/17/2021 GI bleed [K92.2] 10/01/2021 Acute blood loss anemia [D62] 10/01/2021 NARCISO (acute kidney injury) (HCC) [N17.9] 10/01/2021 Malnutrition of mild degree (HCC) [E44.1] 10/03/2021 Malnutrition of moderate degree (HCC) [E44.0] 10/07/2021 Chronic gastric ulcer [K25.7] H/O mitral valve replacement [Z95.2] 05/11/2022 V tach (HCC) [I47.20] 05/11/2022 HOCM (hypertrophic obstructive cardiomyopathy) *05/11/2022 HTN (hypertension) [I10] 05/11/2022 ICD (implantable cardioverter-defibrillator) in*05/11/2022 Tachycardia [R00.0] 05/11/2022 TIA (transient ischemic attack) [G45.9] 05/11/2022 Encounter Status:Closed by DELFINA SHOOK on 08/09/23[facility] 03-29-2023 Miscellaneous Notes* Telephone Encounter - Mague De Jesus - 03/29/2023 12:22 PM EDT Called pt to assist with rescheduling appt with a different provider, Dr. Phan is leavingpractice. documented in this encounterTrumbull [facility]07-10-2023 Miscellaneous Notes* Telephone Encounter - Vilma Crespo Ma - 03/22/2023 2:14 PM EDT Pt notified via [facility] Advised to notify office that she has reviewed the message and changes made. Tracker and med list updated. Vilma Crespo Ma * Telephone Encounter - Yordy Allen MD - 03/22/2023 2:05 PM EDT INR a little high at 3.2 Go to 7.5 mg on and Wed; 5 mg all other days Recheck in 2 weeks Yordy Allen MD * Telephone Encounter - Vilma Crespo Ma - 03/22/2023 9:33 AM EDT Last INR: INR 3.2 03/22/2023 Current dose of coumadin is: 7.5 mg Wed/Wed/Wed and 5 mg all other days . Last date of dose change: 02/22/23. Previous INR (date and result): 02/22/23 INR: 1.3 Additional Clinical Information or narrative: no NOTIFY PT VIA [employer] documented in this encounterTrumbull [facility]06-23-2023 Miscellaneous Notes* Telephone Encounter - Gilles [place] APRN.CNP - 03/05/2023 11:09 AM EDT The following approved medication requests have been transmitted electronically. Requested Prescriptions Signed Prescriptions Disp Refills warfarin (COUMADIN) 5 mg tablet 60 tablet 11 Si.5 mg Mon, Wed, Wednesday, 5 mg daily or as directed Gilles [place] APRN.CNP * Telephone Encounter - Celsa Jacobs Ma - 03/05/2023 8:35 AM EDT Send 5 mg Rx to [facility]. Most recent Rx was done as hx update. Update pt via [employer] once complete. Rx pended. Celsa Jacobs Ma documented in this encounterTrumbull [facility]06-06-2023 Miscellaneous Notes* Telephone Encounter - Celsa Jacobs Ma - 02/16/2023 1:35 PM EDT Await pt response regarding where to send Rx. Updated sig as pt is taking 5 mg daily per last INR TE on 02/02/23. Celsa Jacobs Ma documented in this encounterTrumbull [facility]06-01-2023 Miscellaneous Notes* Telephone Encounter - Celsa Jacobs Ma - 02/11/2023 11:48 AM EDT Pt notified that A1c has been ordered. Celsa Jacobs Ma * Telephone Encounter - Celsa Jacobs Ma - 02/11/2023 9:35 AM EDT Pt is asking for an A1c test. All I see is future Thyroid labs ordered. Celsa Jacobs Ma documented in this encounterTrumbull [facility] Hospital05-08-2023 Miscellaneous Notes* Telephone Encounter - Nallely Simmons LPN - 01/18/2023 2:39 PM EDT Detailed message left on pt's vm. Requested pt call back to verify message. Tracker updated. Nallely Simmons LPN * Telephone Encounter - Yordy Allen MD - 01/18/2023 2:23 PM EDT INR good at 2.1 Stay on same dose of coumadin Recheck in 1 week Yordy Allen MD * Telephone Encounter - Lita Washington MA - 01/18/2023 1:12 PM EDT PT INR Date Value Ref Range Status 01/18/2023 2.1 (A) 2.5 - 3.5 Final Patient currently taking 7.5 mg daily. Please review and advise. Lita Washington MA documented in this encounterTrumbull [facility] Hospital05-04-2023 Miscellaneous Notes* Telephone Encounter - Celsa Jacobs Ma - 01/14/2023 5:06 PM EDT Pt wrote into office self medicating her dosage. Wrote in stating she was taking 7.5 mg 3 days a week, but increased it to 6 days a week and 5 on Wednesday. Pt advised by PCP via mychart to take 7.5 mg every day and recheck in 2 weeks. Tracker updated. Celsa Jacobs Ma * Telephone Encounter - Celsa Jacobs Ma - 01/12/2023 5:04 PM EDT [employer] message sent to pt with instructions below. Asked pt to confirm what dosage she is taking. Wait pt response. Will update tracker once pt responds. Celsa Jacobs Ma * Telephone Encounter - Yordy Allen MD - 01/12/2023 5:02 PM EDT INR low at 1.5 If she is currently taking 7.5 mg Mon, Wed, Fri and Sat 5 mg all other days, she should go to 7.5 mg daily, except 5 mg on Wednesday Recheck in 1 week Yordy Allen MD * Telephone Encounter - Celsa Jacobs Ma - 01/12/2023 1:10 PM EDT Last INR: INR 1.5 01/12/2023 Current dose of coumadin is: 7.5 mg Mon, Wed, Wed and Sat 5 mg all other days. Last date of dose change: 12/08/22. Previous INR (date and result): 1.6 on 12/07/22 Additional Clinical Information or narrative: yes: Pt is very non compliant and self medicates her INR. Daughter is a Senior Lead Project Manager who's also instructed her on previous dosages. Update pt via [employer]. Celsa Jacobs Ma documented in this encounterTrumbull [facility] Hospital04-27-2023 NotePatient Outreach (LAKISHA) EM DANIEL ([id number]) 1955 F T Date Time Provider Department 01/07/23 WAYLON HIGGINS During your visit today, we recorded the following information about you: Waylon Higgins MA 01/14/2023 1:50 PM Addendum POPULATION HEALTH NAVIGATION OUTREACH Action/ SCHEDULED MEDICARE WELLNESS AND MAMMOS 02-19-23 Spoke to Lissett. She will call me back to schedule [facility] [employer] MESSAGE SENT HCC GAPS E44.0 - Malnutrition of moderate degree (HCC) E44.1 - Malnutrition of mild degree (HCC) CARE [facility]APS [facility] due on 07/14/2022 ADVANCE DIRECTIVE DISCUSSION Never done Patient Identified by Name and : YES, via phone Outreach Outcome/Action Spoke to patient / parent / legal guardian: Patient scheduled Unable to reach patient: Left message Spirationt message sent Did you use a PCP flex slot to schedule this appointment? N/A Reason for Outreach HCC or suspected condition Payer: Payor: MEDICARE / Plan: MEDICARE A AND B / Product Type: Medicare / Care Gap Reviewed:: Annual Wellness visit Breast Cancer screening Reminder: Reminder note to check Health Maintenance for items below Health Maintenance items due: COVID-19 VACCINE(1) Never done DTAP,TDAP,TD(1 - Tdap) Never done SHINGRIX VACCINE(2 of 3) due on 10/14/2015 PNEUMOCOCCAL: 65+(2 - PCV) due on 06/03/2018 MAMMOGRAM due on 07/14/2022 ADVANCE DIRECTIVE DISCUSSION Never done DEPRESSION ASSESSMENT Never done Navigation Signature: Waylon Higgins MA January 07, 2023 8:41 AM Allergies As of Date: 01/07/2023 (No Known Allergies) Date Reviewed: 12/15/2022 Reviewed by: Maya Vera MA - Fully Assessed Reason for Visit: Population Health Navigation Outreach [3910] Cmt: HCC GAP Prescriptions as of 01/14/2023 - potassium chloride (K-TAB) 10 mEq tablet Take 1 tablet by mouth daily with breakfast. - pantoprazole DR (PROTONIX) 40 mg tablet Take 1 tablet by mouth once daily. - warfarin (COUMADIN) 5 mg tablet 7.5 mg M/W/F, 5 mg all other days or as directed - warfarin (COUMADIN) 1 mg tablet 7.5 mg M/W/F, 5 mg all other days or as directed - methIMAzole (TAPAZOLE) 5 mg tablet Take 0.5 tablets by mouth every other day. - spironolactone (ALDACTONE) 25 mg tablet Take 1 tablet by mouth twice daily. - torsemide (DEMADEX) 20 mg tablet Take 1 tablet by mouth three times daily. - metoprolol succinate ER (TOPROL XL) 50 mg 24 hr tablet Take 1 tablet by mouth once daily. - aspirin 81 mg chewable tablet Take 81 mg by mouth once daily. - multivitamin tablet Take 1 tablet by mouth once daily. Facility-Administered Medications as of 01/14/2023 - perflutren lipid microspheres 1.3 mL in NaCl (PF) 0.9% 10 mL injection (DEFINITY) - sodium chloride 0.9 % (flush) 10 mL (BD POSIFLUSH) - perflutren lipid microspheres 1.3 mL in NaCl (PF) 0.9% 10 mL injection (DEFINITY) - sodium chloride 0.9 % (flush) 10 mL (BD POSIFLUSH) Problem List As Of Date 01/07/2023 Noted Resolved Hypertrophic obstructive cardiomyopathy (HCC) [*05/01/2015 AICD (automatic cardioverter/defibrillator) pre*05/01/2015 Atrial fibrillation (HCC) [I48.91] 05/01/2015 Hyperthyroidism [E05.90] 05/01/2015 DDD (degenerative disc disease), cervical [M50.*05/01/2015 Vertebral compression fracture (HCC) [M48.50XA] 05/01/2015 Other allergic rhinitis [J30.89] 05/01/2015 GERD (gastroesophageal reflux disease) [K21.9] 05/01/2015 S/P MVR (mitral valve repair) [Z98.890] 08/01/2020 Pulmonary hypertension (HCC) [I27.20] 08/01/2020 Essential hypertension [I10] 08/01/2020 History of transient ischemic attack (TIA) [Z86*08/01/2020 Diarrhea [R19.7] 08/01/2020 Osteopenia, senile [M85.80] 01/21/2021 Stage 3b chronic kidney disease (HCC) [N18.32] 01/21/2021 Hypoxia [R09.02] 09/14/2021 COVID [U07.1] 09/14/2021 09/17/2021 GI bleed [K92.2] 10/01/2021 Acute blood loss anemia [D62] 10/01/2021 NARCISO (acute kidney injury) (HCC) [N17.9] 10/01/2021 Malnutrition of mild degree (HCC) [E44.1] 10/03/2021 Malnutrition of moderate degree (HCC) [E44.0] 10/07/2021 Chronic gastric ulcer [K25.7] H/O mitral valve replacement [Z95.2] 05/11/2022 V tach (HCC) [I47.20] 05/11/2022 HOCM (hypertrophic obstructive cardiomyopathy) *05/11/2022 HTN (hypertension) [I10] 05/11/2022 ICD (implantable cardioverter-defibrillator) in*05/11/2022 Tachycardia [R00.0] 05/11/2022 TIA (transient ischemic attack) [G45.9] 05/11/2022 Encounter Status:Closed by WAYLON HIGGINS on 01/07/23[facility] NoteHNO ID: [id number] Author: Waylon Higgins MA Service: ? Author Type: Supervisor [employer]ation Type: Progress Notes Filed: 01/14/2023 1:50 PM Note Text: POPULATION HEALTH NAVIGATION OUTREACH Action/FYI SCHEDULED MEDICARE WELLNESS AND MAMMOS 02-19-23 Spoke to Lissett. She will call me back to schedule [facility] MESSAGE SENT HCC GAPS E44.0 - Malnutrition of moderate degree (HCC) E44.1 - Malnutrition of mild degree (HCC) CARE [facility] due on 07/14/2022 ADVANCE DIRECTIVE DISCUSSION Never done Patient Identified by Name and : YES, via phone Outreach Outcome/Action Spoke to patient / parent / legal guardian: Patient scheduled Unable to reach patient: Left message [employer] Wireless[employer] message sent Did you use a PCP flex slot to schedule this appointment? N/A Reason for Outreach HCC or suspected condition Payer: Payor: MEDICARE / Plan: MEDICARE A AND B / Product Type: Medicare / Care Gap Reviewed:: Annual Wellness visit Breast Cancer screening Reminder: Reminder note to check Health Maintenance for items below Health Maintenance items due: COVID-19 VACCINE(1) Never done DTAP,TDAP,TD(1 - Tdap) Never done SHINGRIX VACCINE(2 of 3) due on 10/14/2015 PNEUMOCOCCAL: 65+(2 - PCV) due on 06/03/2018 MAMMOGRAM due on 07/14/2022 ADVANCE DIRECTIVE DISCUSSION Never done DEPRESSION ASSESSMENT Never done Navigation Signature: Waylon Higgins MA January 07, 2023 8:41 [facility]04-27-2023 History of Present illness Narrative* Waylon Higgins MA - 01/07/2023 8:41 AM EDT POPULATION HEALTH NAVIGATION OUTREACH Action/FYI [employer] MESSAGE SENT HCC GAPS E44.0 - Malnutrition of moderate degree (HCC) E44.1 - Malnutrition of mild degree (HCC) CARE GAPS ANNUAL [facility] WELLNESS MAMMOGRAM due on 07/14/2022 ADVANCE DIRECTIVE DISCUSSION Never done Patient Identified by Name and : NO Outreach Outcome/Action Unable to reach patient: Left message MyChart message sent Did you use a PCP flex slot to schedule this appointment? N/A Reason for Outreach HCC or suspected condition Payer: Payor: MEDICARE / Plan: MEDICARE A AND B / Product Type: Medicare / Care Gap Reviewed:: Annual Wellness visit Breast Cancer screening Reminder: Reminder note to check Health Maintenance for items below Health Maintenance items due: COVID-19 VACCINE(1) Never done DTAP,TDAP,TD(1 - Tdap) Never done SHINGRIX VACCINE(2 of 3) due on 10/14/2015 PNEUMOCOCCAL: 65+(2 - PCV) due on 06/03/2018 MAMMOGRAM due on 07/14/2022 ADVANCE DIRECTIVE DISCUSSION Never done DEPRESSION ASSESSMENT Never done Navigation Signature: Waylon Higgins MA January 07, 2023 8:41 AM documented in this encounterTr[facility]ull [facility]04-10-2023 Miscellaneous Notes* Telephone Encounter - Ricci Donovan RN - 12/21/2022 11:42 AM EDT Returned call, no answer, left VM documented in this encounterTrumbull [facility] Hospital04-04-2023 NoteHNO ID: [id number] Author: Santino Phan MD Service: ? Author Type: Physician Type: Progress Notes Filed: 12/16/2022 7:22 AM Note Text: ENDOCRINOLOGY OUTPATIENT CONSULT NOTE Date of Consult: 12/15/2022 NAME: Em Daniel is a 66 year old old female PCP: Yordy Allen MD Reason for visit: Graves disease Impression / Plan / CC / HPI Impression Graves disease Atrial fibrillation Plan - continue methimazole 2.5 mg every other day. - TSH, FT4, FT3 in today. If normal, then again in 6 months Follow-up in 6-month. YOON Em Daniel is a 67 year old old female presenting for Graves' disease follow-up. Patient is not a good historian. She appears to have some degree of cognitive impairment. Past medical history is significant for history of hypertrophic cardiomyopathy, treated with surgical septal myectomy and mitral valve replacement with a mechanical mitral valve. Other sequela of hypertrophic cardiomyopathy include atrial fibrillation, treated with catheter ablation. She is currently on rhythm control strategy with dofetilide and on anticoagulation for stroke prevention in atrial fibrillation with an oral vitamin K antagonist, warfarin She was diagnosed with Graves disease initially in 2014 or so. She was treated with methimazole for 3-4 years, then stopped. She had hyperthyroid again in 2019, and then methimazole was restarted. She remained on methimazole since then. Noted she had positive TSI on 05/01/2020. Methimazole dose has been adjusted over years. She remains euthyroid on a small dose of methimazole 2.5 mg every other day since February 2022. Repeated TSI 06/08/22 was negative. The daughter, who is a sports physical therapist, expressed her concern that her A. fib may worsen if we stop methimazole. So we leave her on this small dose of methimazole. Of note, she had neck ultrasound done from outside on 05/16/2020, which mention right thyroid nodule 1.1 cm, is measured to 1.3 cm, and 2 left thyroid nodule (1.1 and 1.2 cm). We do not have the picture of this thyroid ultrasound. I did in-office neck ultrasound 05/2022, which did not show any nodules. INTERVAL She denies palpitation or chest pain. However, she continues to lose weight. Partially this may be due to diuresis. She remains on methimazole 2.5 mg every other day. She continues to have cold intolerance. Component Latest Ref Rng AND Units 10/13/2022 TSH 0.270 - 4.200 mIU/L 0.994 Free T4 0.9 - 1.7 ng/dL 1.5 Free T3 2.3 - 4.1 pg/mL 3.1 Medications Current Outpatient Medications on File Prior to Visit Medication Sig warfarin (COUMADIN) 5 mg tablet 5 mg Wed/Wed, 2.5 mg all other days or as directed furosemide (LASIX) 40 mg tablet Take 0.5 tablets by mouth twice daily. metoprolol succinate ER (TOPROL XL) 50 mg 24 hr tablet Take 1 tablet by mouth once daily. pantoprazole DR (PROTONIX) 40 mg tablet Take 1 tablet by mouth once daily. methIMAzole (TAPAZOLE) 5 mg tablet Take 1 tablet by mouth once daily. potassium chloride (K-TAB) 10 mEq tablet Take 1 tablet by mouth daily with breakfast. aspirin 81 mg chewable tablet Take 81 mg by mouth once daily. multivitamin tablet Take 1 tablet by mouth once daily. Current Facility-Administered Medications on File Prior to Visit Medication perflutren lipid microspheres 1.3 mL in NaCl (PF) 0.9% 10 mL injection (DEFINITY) sodium chloride 0.9 % (flush) 10 mL (BD POSIFLUSH) perflutren lipid microspheres 1.3 mL in NaCl (PF) 0.9% 10 mL injection (DEFINITY) sodium chloride 0.9 % (flush) 10 mL (BD POSIFLUSH) perflutren lipid microspheres 1.3 mL in NaCl (PF) 0.9% 10 mL injection (DEFINITY) sodium chloride 0.9 % (flush) 10 mL (BD POSIFLUSH) Allergies ALLERGIES No Known Allergies Medical / Surgical PAST MEDICAL HISTORY Diagnosis Date Atrial fibrillation (HCC) Chronic gastric ulcer GERD (gastroesophageal reflux disease) H/O mitral valve replacement mechanical valve H/O myomectomy cardiac HOCM (hypertrophic obstructive cardiomyopathy) (HCC) HTN (hypertension) Hypertrophic cardiomyopathy (HCC) ICD (implantable cardioverter-defibrillator) in place Palpitations Tachycardia TIA (transient ischemic attack) history of V tach PAST SURGICAL HISTORY Procedure Laterality Date AICD, DUAL CHAMBER 2007 EGD BIOPSY SING OR MULT 10/03/2021 2 gastric ulcers; atrophic fundus of stomach HYSTERECTOMY HX KRUGER W/O FACETEC FORAMOT/DSC 09/14 VRT SGM CRV 1995 DISCECTOMY. Laminectomy, cervical STAB PHLEBECTOMY VARICOSE VEINS >20 Family History FAMILY HISTORY Problem Relation Age of Onset Alzheimer's Disease Mother Stroke Mother Alcohol/Drug Father ALCOHOL Heart Father ?CAROTID. Breast Cancer Maternal Grandmother Social History Social History Tobacco Use Smoking status: Former Packs/d (more content not included)...[facility]04-04-2023 History of Present illness Narrative* Santino Phan MD - 12/15/2022 1:46 PM EDT ENDOCRINOLOGY OUTPATIENT CONSULT NOTE Date of Consult: 12/15/2022 NAME: Em Daniel is a 66 year old old female PCP: Yrody Allen MD Reason for visit: Graves disease Impression / Plan / CC / HPI Impression Graves disease Atrial fibrillation Plan - continue methimazole 2.5 mg every other day. - TSH, FT4, FT3 in today. If normal, then again in 6 months Follow-up in 6-month. HPI Em Daniel is a 67 year old old female presenting for Graves' disease follow-up. Patient is not a good historian. She appears to have some degree of cognitive impairment. Past medical history is significant for history of hypertrophic cardiomyopathy, treated with surgical septal myectomy and mitral valve replacement with a mechanical mitral valve. Other sequela of hypertrophic cardiomyopathy include atrial fibrillation, treated with catheter ablation. She is currently on rhythm control strategy with dofetilide and on anticoagulation for stroke prevention in atrialfibrillation with an oral vitamin K antagonist, warfarin She was diagnosed with Graves disease initially in 2014 or so. She was treated with methimazole for3-4 years, then stopped. She had hyperthyroid again in 2019, and then methimazole was restarted. She remained on methimazolesince then. Noted she had positive TSI on 05/01/2020. Methimazole dose has been adjusted over years. She remains euthyroid on a small dose of methimazole 2.5 mg every other day since February 2022. Repeated TSI 06/08/22 was negative. The daughter, who is a sports physical therapist, expressed her concern that her A. fib may worsen if we stop methimazole. So we leave her on this small dose of methimazole. Of note, she had neck ultrasound done from outside on 05/16/2020, which mention right thyroid nodule 1.1 cm, is measured to 1.3 cm, and 2 left thyroid nodule (1.1 and 1.2 cm). We do not have the picture of this thyroid ultrasound. I did in-office neck ultrasound 05/2022, which did not show any nodules. INTERVAL She denies palpitation or chest pain. However, she continues to lose weight. Partially this may be due to diuresis. She remains on methimazole 2.5 mg every other day. She continues to have cold intolerance. Component Latest Ref Rng & Units 10/13/2022 TSH 0.270 - 4.200 mIU/L 0.994 Free T4 0.9 - 1.7 ng/dL 1.5 Free T3 2.3 - 4.1 pg/mL 3.1 Medications Current Outpatient Medications on File Prior to Visit Medication Sig warfarin (COUMADIN) 5 mg tablet 5 mg Wed/Wed, 2.5 mg all other days or as directed furosemide (LASIX) 40 mg tablet Take 0.5 tablets by mouth twice daily. metoprolol succinate ER (TOPROL XL) 50 mg 24 hr tablet Take 1 tablet by mouth once daily. pantoprazole DR (PROTONIX) 40 mg tablet Take 1 tablet by mouth once daily. methIMAzole (TAPAZOLE) 5 mg tablet Take 1 tablet by mouth once daily. potassium chloride (K-TAB) 10 mEq tablet Take 1 tablet by mouth daily with breakfast. aspirin 81 mg chewable tablet Take 81 mg by mouth once daily. multivitamin tablet Take 1 tablet by mouth once daily. Current Facility-Administered Medications on File Prior to Visit Medication perflutren lipid microspheres 1.3 mL in NaCl (PF) 0.9% 10 mL injection (DEFINITY) sodium chloride 0.9 % (flush) 10 mL (BD POSIFLUSH) perflutren lipid microspheres 1.3 mL in NaCl (PF) 0.9% 10 mL injection (DEFINITY) sodium chloride 0.9 % (flush) 10 mL (BD POSIFLUSH) perflutren lipid microspheres 1.3 mL in NaCl (PF) 0.9% 10 mL injection (DEFINITY) sodium chloride 0.9 % (flush) 10 mL (BD POSIFLUSH) Allergies ALLERGIES No Known Allergies Medical / Surgical PAST MEDICAL HISTORY Diagnosis Date Atrial fibrillation (HCC) Chronic gastric ulcer GERD (gastroesophageal reflux disease) H/O mitral valve replacement mechanical valve H/O myomectomy cardiac HOCM (hypertrophic obstructive cardiomyopathy) (HCC) HTN (hypertension) Hypertrophic cardiomyopathy (HCC) ICD (implantable cardioverter-defibrillator) in place Palpitations Tachycardia TIA (transient ischemic attack) history of V tach PAST SURGICAL HISTORY Procedure Laterality Date AICD, DUAL CHAMBER 2007 EGD BIOPSY SING OR MULT 10/03/2021 2 gastric ulcers; atrophic fundus of stomach HYSTERECTOMY HX KRUGER W/O FACETEC FORAMOT/DSC 09/14 VRT SGM CRV 1995 DISCECTOMY. Laminectomy, cervical STAB PHLEBECTOMY VARICOSE VEINS >20 Family History FAMILY HISTORY Problem Relation Age of Onset Alzheimer's Disease Mother Stroke Mother Alcohol/Drug Father ALCOHOL Heart Father ?CAROTID. Breast Cancer Maternal Grandmother Social History Social History Tobacco Use Smoking status: Former Packs/day: 1.00 Years: 10.00 Pack years: 10.00 Types: Cigarettes Quit date: 05/01/1983 Years since quittin.6 Smokeless tobacco: Never Vaping Use Vaping Use: Never used Substance Use Topics Alcohol use: Yes Comment: Rare Drug use: Never Problem List ACTIVE PROBLEM LIST Hypertrophic Obstructive Cardiomyopathy (Hcc) Aicd (Automatic Cardioverter/Defibrillator) Present Atrial Fibrillation (Hcc) Hyperthyroidism Ddd (Degenerative Disc Disease), Cervical Vertebral Compression Fracture (Hcc) Other Allergic Rhinitis Gerd (Gastroesophageal Reflux Disease) S/P Mvr (Mitral Valve Repair) Pulmonary Hypertension (Hcc) Essential Hypertension History of Transient Ischemic Attack (Tia) Diarrhea Osteopenia, Senile Stage 3b Chronic Kidney Disease (Hcc) Hypoxia GI Bleed Acute Blood Loss Anemia Narciso (Acute Kidney Injury) (Hcc) Malnutrition of Mild Degree (Hcc) Malnutrition of Moderate Degree (Hcc) Chronic Gastric Ulcer H/O Mitral Valve Replacement V Tach (Hcc) Hocm (Hypertrophic Obstructive Cardiomyopathy) (Hcc) Htn (Hypertension) Icd (Implantable Cardioverter-Defibrillator) in Place Tachycardia Tia (Transient Ischemic Attack) ROS General: No fatigue, + weight loss Cardiovascular: No chest pain, no palpitation, or edema Respiratory: No shortness of breath, no cough Endocrine: Cold intolerance Physical Exam 12/15/22 1348 BP: 115/63 Pulse: 71 Resp: 12 SpO2: 100% Weight: 59.6 kg (131 lb 6.4 oz) Height: 165.1 cm (5' 5) General: Comfortable, no obvious distress Eyes: Sclera anicteric, no pallor Thyroid: Normal size, no nodules Neck: Trachea midline Abdomen: Soft, non tender, non distended. Skin: No rashes, lesions, or subcutaneous nodules, Psych: Alert and orientated x 3. Appropriate affect Extremities: No peripheral edema, no tenderness Musculoskeletal: Appropriate muscle bulk and strength Lymphatic: No cervical lymphadenopathy Neuro: Moves all four extremities. No focal deficits on limited exam. Labs/Imaging I have reviewed laboratory studies myself. Santino Phan MD documented in this encounterTrumbull [facility] Hospital03-30-2023 Miscellaneous Notes* Telephone Encounter - Celsa Jacobs Ma - 12/10/2022 8:09 AM EDT Pt wrote back into the office, verbalized understanding. Celsa Jacobs Ma * Telephone Encounter - Celsa Jacobs Ma - 12/08/2022 3:26 PM EDT Called and left message on patients voicemail to return call to the office and ask to speak with a triage nurse. Mychart message sent to pt notifying her of instructions below. Asked pt to make office aware message was received. Tracker updated. Celsa Jacobs Ma * Telephone Encounter - Yordy Allen MD - 12/08/2022 3:20 PM EDT INR low at 1.6 Go to 7.5 mg M/W/F/Sat, 5 mg all other days Recheck in 2 weeks * Telephone Encounter - Vilma Crespo Ma - 12/08/2022 1:45 PM EDT Last INR: INR 1.6 12/08/2022 Current dose of coumadin is: 7.5 mg M/W/F, 5 mg all other days. Last date of dose change: 11/17/22. Previous INR (date and result): 11/16/22 INR: 1.7 Additional Clinical Information or narrative: no documented in this encounterTrumbull Memorial Hospital03-27-2023 Miscellaneous Notes* Telephone Encounter - Vilma Crespo Ma - 12/07/2022 6:02 PM EDT Pt requesting refill on Potassium and Pantoprazole. Last OV: 06/08/22 Next OV: None scheduled Protonix - 01/19/22 #30 w/11, end date 10/09/22 Potassium - 10/09/21 #90 w/3. Vilma Crespo Ma documented in this encounterTrumbull [facility] Hospital03-07-2023 Miscellaneous Notes* Telephone Encounter - Vilma Crespo Ma - 11/17/2022 3:37 PM EST Pt notified and voiced understanding. Tracker and med list updated. * Telephone Encounter - Yordy Allen MD - 11/17/2022 3:14 PM EST INR a little low at 1.7 Go to 7.5 mg on Mon, Weds, Fri; 5 mg all other days Recheck in 2 weeks Yordy lAlen MD * Telephone Encounter - Lita Washington MA - 11/17/2022 12:55 PM EST Recent Labs 11/16/22 0000 INR 1.7* Pt currently taking 7.5 mg Mon and Thurs; 5 mg all other days. Please review and advise. Lita Washington MA documented in this encounterTrumbull Memorial Hospital03-07-2023 Miscellaneous Notes* Telephone Encounter - Vilma Crespo Ma - 11/17/2022 9:17 AM EST Spoke with pt, states she never got messages, states she does not have very good service. Notified of instructions. Pt voiced understanding. Vilma Crespo Ma * Telephone Encounter - Celsa Jacobs Ma - 11/12/2022 11:36 AM EST Mychart message sent to pt asking her to call office and speak with FM Triage Nurse regarding her INR. Celsa Jacobs Ma * Telephone Encounter - Celsa Jacobs Ma - 11/09/2022 6:06 PM EST Called and left message on patients voicemail to return call to the office and ask to speak with a FM triage nurse. I've went ahead and updated tracker. Please notify pt when phone call is returned. Celsa Jacobs Ma * Telephone Encounter - Yordy Allen MD - 11/09/2022 5:14 PM EST Her INR is low at 1.6 Go to 7.5 mg on Mon and Thurs; 5 mg all other days Recheck INR in 2 weeks Yordy Allen MD * Telephone Encounter - Nallely Simmons LPN - 11/09/2022 3:13 PM EST Pt reports she is currently taking coumadin 5 mg daily. Nallely Simmons LPN * Telephone Encounter - Yordy Allen MD - 11/09/2022 3:05 PM EST Can we find out what dose she is currently taking? Yordy Allen MD * Telephone Encounter - Celsa Jacobs Ma - 11/09/2022 12:51 PM EST Last INR: INR 1.6 11/09/2022 Current dose of coumadin is: Pt was to change from 2.5 mg daily on 11/02 to 0 mg Mon/Thur and 2.5 mgall other days. Pt was never reached and did not review message sent to her via [employer]. Last date of dose change: 11/02/22. Previous INR (date and result): 3.8 on 11/02/22 Additional Clinical Information or narrative: yes: pt non-compliant and does self dosing. Celsa Jacobs Ma documented in this encounterTrumbull Memorial Hospital02-27-2023 Miscellaneous Notes* Telephone Encounter - Vilma Crespo Ma - 11/09/2022 12:27 PM EST Office has tried to reach pt multiple times by phone and [employer] with no return call. Encounter closed. * Telephone Encounter - Vilma Crespo Ma - 11/05/2022 4:01 PM EST Additional message left for pt to call back. Vilma Crespo Ma * Telephone Encounter - Vilma Crespo Ma - 11/03/2022 3:00 PM EST Message sent to pt via [employer] asking her to call office back regarding her INR and coumadin dosage. Vilma Crespo Ma * Telephone Encounter - Graciela Love RN - 11/03/2022 8:35 AM EST Left detailed vm on identified vm with provider's message below. [facility]. * Telephone Encounter - Graciela Love RN - 11/02/2022 4:04 PM EST Left vm for patient to return call to nurse for provider's message. * Telephone Encounter - Yordy Allen MD - 11/02/2022 2:27 PM EST INR is high at 3.8 If she is currently taking 2.5 mg daily of coumadin she should go to none on Mon and Thurs; 2.5 mg all other days Recheck INR in 1 week Yordy Allen MD * Telephone Encounter - Vilma Crespo Ma - 11/02/2022 12:18 PM EST Last INR: INR 3.8 11/02/2022 Current dose of coumadin is: 2.5 mg daily. Last date of dose change: Previous INR (date and result): 10/12/22 INR: 2.2 Additional Clinical Information or narrative: no documented in this encounterTrumbull Memorial Hospital01-31-2023 Miscellaneous Notes* Telephone Encounter - Vilma Crespo Ma - 10/13/2022 3:43 PM EST Pt notified via [employer]. Tracker and med list updated. Vilma Crespo Ma * Telephone Encounter - Yordy Allen MD - 10/13/2022 2:55 PM EST INR good at 2.2 Stay on same dose - chart shows 2.5 mg daily Recheck in 2 weeks Yordy Allen MD * Telephone Encounter - Vilma Crespo Ma - 10/13/2022 10:56 AM EST Last INR: INR 2.2 10/12/2022 Current dose of coumadin is: 2.5 mg daily. Last date of dose change: . Previous INR (date and result): 09/28/22 INR: 2.5 Additional Clinical Information or narrative: no documented in this encounterTrumbull Memorial Hospital01-27-2023 History of Present illness Narrative* Abdullahi Sheldon PA-C - 10/09/2022 4:35 PM EST Images from the original note were not included. [facility] Department of Cardiovascular Medicine OUTPATIENT VISIT DATE October 09, 2022 OUTPATIENT VISIT TYPE Established PCP: Yordy Allen MD ASSESSMENT/PLAN: Ms. Daneil is a 67 year old female with pmhx of chronic systolic heart failure, s/p NEEDLE LOOM SETTER-D, refractory and persistent afib/atach s/p NEEDLE LOOM SETTER-D ([place]), s/p mechanical mitral valve, HOCM s/p myomectomy, VT, CKD III, and hx of TIA who presents for hospital follow up. She was admitted at a hospital in [place] for fluid overload. Limited documentation is available in CareEverywhere but I do see a CT of the chest that showed moderate bilateral effusion. She was started on AVS (adaptive servo-ventilation) for sleep apnea. Persistent afib/atach. Highly refractory requiring AVJ ablation 06/19/2022. She is effectively BiV pacing at 99% on review of her most recent interrogation. Her device check today revealed appropriate device lead parameters; reviewed with rep. Her lower rate was reduced from80 to 70 today. She is anticoagulated with Warfarin for her mechanical MV. On Toprol. 2. Chronic systolic heart failure. LVEF 46% with mechanical prosthetic MV on echo 09/2021. Recent admission to [place] for heart failure exacerbation according to the patient. She appears euvolemic today with no evidence of decompensated failure. She was transitioned to Torsemide and Spironolactone was added during recent hospitalization. Continue these. Referral to advanced heart failure. Check a BMP. Follow up in [address] Guy or sooner if needed. HISTORY OF PRESENT ILLNESS: Ms. Daniel is a 67 year old female with pmhx of chronic systolic heart failure, s/p NEEDLE LOOM SETTER-D, refractory and persistent afib/atach s/p NEEDLE LOOM SETTER-D ([place]), s/p mechanical mitral valve, HOCM s/p myomectomy, VT, CKD III, and hx of TIA who presents for hospital follow up. She states that she was admitted at a hospital in [place] for 2-3 days due to shortness of breath, right sided chest pain and fluid overload. She spent a couple days in the hospital undergoing diuresis according to her. She notes that her diuretic was changed to Torsemide and she was started on Spironolactone. Today, she reports feeling much better. She denies having chest pain/pressure, SOB, lightheadedness, presyncope, syncope, abdominal pain, nausea, or bleeding issues. Notes having LE edema but it is much improved compared to her recent admission. Her INR has been labile over the last month but most recent labs show it was 2.5 on 10/08/22. It was up to 7.9 earlier this month. HISTORY: PAST MEDICAL HISTORY Diagnosis Date Atrial fibrillation (HCC) Chronic gastric ulcer GERD (gastroesophageal reflux disease) H/O mitral valve replacement mechanical valve H/O myomectomy cardiac HOCM (hypertrophic obstructive cardiomyopathy) (HCC) HTN (hypertension) Hypertrophic cardiomyopathy (HCC) ICD (implantable cardioverter-defibrillator) in place Palpitations Tachycardia TIA (transient ischemic attack) history of V tach PAST SURGICAL HISTORY Procedure Laterality Date AICD, DUAL CHAMBER 2007 EGD BIOPSY SING OR MULT 10/03/2021 2 gastric ulcers; atrophic fundus of stomach HYSTERECTOMY HX KRUGER W/O FACETEC FORAMOT/DSC 09/14 VRT SGM CRV 1995 DISCECTOMY. Laminectomy, cervical STAB PHLEBECTOMY VARICOSE VEINS >20 SOCIAL HISTORY Social History Tobacco Use Smoking status: Former Packs/day: 1.00 Years: 10.00 Pack years: 10.00 Types: Cigarettes Quit date: 05/01/1983 Years since quittin.4 Smokeless tobacco: Never Vaping Use Vaping Use: Never used Substance Use Topics Alcohol use: Yes Comment: Rare Drug use: Never FAMILY HISTORY Problem Relation Age of Onset Alzheimer's Disease Mother Stroke Mother Alcohol/Drug Father ALCOHOL Heart Father ?CAROTID. Breast Cancer Maternal Grandmother ALLERGIES INCLUDE: ALLERGIES No Known Allergies MEDICATIONS INCLUDE: spironolactone (ALDACTONE) 25 mg tablet^Take 1 tablet by mouth twice daily.^Disp: ^Rfl: torsemide (DEMADEX) 20 mg tablet^Take 1 tablet by mouth three times daily.^Disp: ^Rfl: warfarin (COUMADIN) 5 mg tablet^Take 5-10 mg daily as directed^Disp: 60 tablet^Rfl: 11 methIMAzole (TAPAZOLE) 5 mg tablet^Take 0.5 tablets by mouth every other day.^Disp: 23 tablet^Rfl: 3 metoprolol succinate ER (TOPROL XL) 50 mg 24 hr tablet^Take 1 tablet by mouth once daily.^Disp: 90 tablet^Rfl: [address] (PROTONIX) 40 mg tablet^Take 1 tablet by mouth once daily.^Disp: 30 tablet^Rfl: 11 potassium chloride (K-TAB) 10 mEq tablet^Take 1 tablet by mouth daily with breakfast.^Disp: 90 tablet^Rfl: 3 aspirin 81 mg chewable tablet^Take 81 mg by mouth once daily. ^Disp: ^Rfl: multivitamin tablet^Take 1 tablet by mouth once daily.^Disp: ^Rfl: 0 warfarin (COUMADIN) 1 mg tablet^Take 5-10 mg daily as directed^Disp: 60 tablet^Rfl: 11 REVIEW OF SYSTEMS: Systemic review is otherwise unremarkable. PHYSICAL EXAMINATION: BP 104/62 (BP Site: Left Arm, BP Position: Sitting, BP Cuff Size: Regular Adult) Pulse 80 Ht 165.1 cm (5' 5) Wt 60.6 kg (133 lb 8 oz) BMI 22.22 kg/m General: Well appearing, in no acute distress, speaking in complete sentences. Skin: No clubbing, no cyanosis. Neck: No jugular venous distention Lungs: Clear to auscultation bilaterally, no wheezing or rhonchi. Heart: Mechanical S1, S2 normal Extremities: Trace to 1+ pitting edema bilateral LEs CARDIOVASCULAR MEDICINE TESTING: Preliminary review of the electrocardiogram today shows underlying aflutter vs atach and V paced rhythm at 80 bpm. Abdullahi Sheldon PA-C [facility] - Electrophysiology [facility] Office Building [address] [place] [address] [address] [place] [address] Office Office documented in this encounterTrumbull [facility] Hospital01-27-2023 Instructions* Patient Instructions* Abdullahi Sheldon PA-C - 10/09/2022 2:59 PM EST You are doing well today. We made small adjustments to your device and it is functioning appropriately. You may continue your current cardiac medications as prescribed. We will set you up with an appointment with one of our advanced heart failure specialists. This will be in the next 2-3 weeks if scheduling permits. You will follow up with Dr. Guy in 6 months or sooner if needed. documented in this encounterTrumbull Memorial Hospital01-25-2023 Procedure [facility]01-17-2023 Procedure [facility]01-17-2023 Miscellaneous Notes* Telephone Encounter - Vilma Crespo Ma - 09/29/2022 12:52 PM EST Notified via [employer] App[employer]. Tracker and med list updated. Vilma Crepso Ma * Telephone Encounter - Fiona Scales MA - 09/28/2022 2:36 PM EST Left detailed message for patient with instructions. Ask patient to call or send a mychart that shereceived this information. Fiona Scales MA * Telephone Encounter - Yordy Allen MD - 09/28/2022 2:12 PM EST INR good at 2.5 Stay on the same dose she is taking now, recheck in 1 week Yordy Allen MD * Telephone Encounter - Vilma Crespo Ma - 09/28/2022 1:43 PM EST Last INR: INR 2.5 09/28/2022 Current dose of coumadin is: 2.5 mg daily. Last date of dose change: 09/18/22. Previous INR (date and result): 09/18/22 INR: 4.0 Additional Clinical Information or narrative: no documented in this encounterTrumbull Memorial Hospital01-10-2023 History of Present illness Narrative* Johnson Duval RN - 09/22/2022 10:26 AM EST [facility] Enrollment Provider Action/FYI: - ckd Patient referred by: C Ashtyn Contact made with patient: No - 2nd attempt to reach patient, left another message: Hi my name is Johnson Duval RN and I am calling from the [facility] on behalf of your PCP, Yordy Allen MD. We are excited to share with you a new program to help you manage your health. Please call me back at [phone]. I hope you can take the time to speak with me. (Keep encounter open for additional two business days in case patient calls back. Close encounter if no response by end of second business day) Closing: Could not reach the patient after two attempted outreaches. Digital Media Coordinator to retry patient in one week. END OUTREACH * Johnson Duval RN - 09/16/2022 9:58 AM EST [facility] Enrollment Provider Action/FYI: - ckd Patient referred by: C Ashtyn Contact made with patient: No - Left Message: Hi my name is Johnson Duval RN and I am calling from the [facility] on behalf of your PCP, Yordy Allen MD. We are excited to share with you anew program to help you manage your health. Please call me back at [phone] between the hours of 8am-5pm Wednesday- Wednesday. You will receive another phone call from me within the next two business days. I hope you can take the time to speak with me. (Keep encounter open and attempt 2nd outreach intwo business days from today) END OUTREACH documented in this encounterTrumbull Memorial Hospital01-06-2023 Miscellaneous Notes* Telephone Encounter - Allsyon Lopez RN - 09/18/2022 4:08 PM EST Pt called and is notified of providers results and instructions. Pt voices understanding. Allyson Lopez RN * Telephone Encounter - Yordy Allen MD - 09/18/2022 4:03 PM EST INR is coming down at 4.0 I would suggest that she continue to hold the coumadin for another 2 days, then start back on it at2.5 mg daily Recheck INR in 1 week Yordy Allen MD * Telephone Encounter - Celsa Jacobs Ma - 09/18/2022 3:53 PM EST Last INR: INR 4.0 09/18/2022 Current dose of coumadin is: pt advised to hold her dosage due to elevated INR.. Last date of dose change: 09/17/22. Previous INR (date and result): 7.9 on 09/15/22 Additional Clinical Information or narrative: yes: pt self medicates her dosages. Celsa Jacobs Ma documented in this encounterTrumbull Memorial Hospital01-05-2023 Miscellaneous Notes* Telephone Encounter - Allyson Lopez RN - 09/17/2022 4:50 PM EST Pt called and is notified of providers results and instructions. Pt voices understanding. Allyson Lopez RN * Telephone Encounter - Gabriela Carrasquillo RN - 09/17/2022 1:52 PM EST VM left for patient to call PCP office as soon as possible, for message below. Gabriela Carrasquillo RN * Telephone Encounter - Yordy Allen MD - 09/17/2022 1:45 PM EST INR is very high at 7.9 She should continue to hold the coumadin; recheck INR on Monday 09/18 Yordy Allen MD * Telephone Encounter - Vilma Crespo Ma - 09/17/2022 12:33 PM EST Last INR: INR 7.9 09/15/2022 Current dose of coumadin is: 6 mg Wed/Sat, 2.5 mg daily according to PCP recommendations-however pthas been taking 5 mg daily, except she held coumadin last 2 days Last date of dose change: 09/08/22. Previous INR (date and result): 09/08/22 INR: 1.8 Additional Clinical Information or narrative: no Pt has not been taking coumadin as directed, Contacted pt to verify her dosages as she is constantly self adjusting. Pt stated she has been taking 5 mg daily, except she has not taken anything the last 2 days. I asked pt if someone else was managing her INR and she said no, just me. I voiced to pt that she shouldnot be adjusting her dosage without speaking to provider first. Pt has been told this multiple times in past. Vilma Crespo Ma documented in this encounterTrumbull Memorial Hospital01-03-2023 Miscellaneous Notes* Telephone Encounter - Radha Rueda RN - 09/15/2022 11:06 AM EST Already refilled by PCP. Radha Rueda RN documented in this encounterTrumbull Memorial Hospital12-28-2022 Miscellaneous Notes* Telephone Encounter - Yordy Allen MD - 09/09/2022 7:17 PM EST OK to refill as ordered Yordy Allen MD documented in this encounterTrumbull Memorial Hospital12-27-2022 Miscellaneous Notes* Telephone Encounter - Vilma Crespo Ma - 09/08/2022 4:38 PM EST Pt notified via [employer]. Tracker and med list updated. Vilma Crespo Ma * Telephone Encounter - Yordy Allen MD - 09/08/2022 4:34 PM EST INR a little low at 1.6 Go to 6 mg Wed and Sat; 2.5 mg all other days Recheck in 2 weeks Yordy Allen MD * Telephone Encounter - Vilma Crespo Ma - 09/08/2022 3:20 PM EST Last INR: INR 1.8 09/08/2022 Current dose of coumadin is: 6 mg Wed, 2.5 mg all other days. Last date of dose change: 06/22/22. Previous INR (date and result): 08/04/22 INR: 2.6 Additional Clinical Information or narrative: no documented in this encounterTrumbull Memorial Hospital12-27-2022 Miscellaneous Notes* Telephone Encounter - Vilma Crespo Ma - 09/08/2022 4:37 PM EST Pt notified of INR and coumadin instructions via [employer] App[employer]. Vilma Crespo Ma documented in this encounterTrumbull Memorial Hospital12-22-2022 Miscellaneous Notes* Telephone Encounter - Yordy Allen MD - 09/03/2022 3:10 PM EST INR order filed Yordy Allen MD * Telephone Encounter - Celsa Jacobs Ma - 09/03/2022 2:30 PM EST Please advise. Do we need to put a standing order in for her to come to lab and complete? Celsa Jacobs Ma documented in this encounterTrumbull Memorial Hospital11-22-2022 Miscellaneous Notes* Telephone Encounter - Syeda Paul LPN - 08/04/2022 11:51 AM EST TC to pt. Left a detailed message on a secure line with updates. Syeda Paul LPN * Telephone Encounter - Yordy Allen MD - 08/04/2022 11:36 AM EST INR good at 2.6 Stay on 6 mg Wed, 2.5 mg all other days. Recheck in 2 weeks Yordy Allen MD * Telephone Encounter - Vilma Crespo Ma - 08/04/2022 8:02 AM EST Last INR: INR 2.6 08/03/2022 Current dose of coumadin is: 6 mg Wed, 2.5 mg all other days. Last date of dose change: 06/22/22. Previous INR (date and result): 07/21/22 INR: 2.3 Additional Clinical Information or narrative: no documented in this encounterTrumbull Memorial Hospital11-15-2022 History of Present illness Narrative* Oneyda Guy MD - 07/28/2022 1:43 PM EST Images from the original note were not included. [facility] Department of Cardiovascular Medicine SECTION OF CLINICAL CARDIAC ELECTROPHYSIOLOGY OUTPATIENT VISIT DATE 07/28/2022 OUTPATIENT VISIT TYPE Established PRIMARY CARE PHYSICIAN: Yordy Allen [address] [place] [address] CHIEF COMPLAINT: AT - now s/p AVN ablation HISTORY OF PRESENT ILLNESS: Ms. Daniel is a 66 year old year old FEMALE with a history of HCM, DCICD, persistent AT/AF, mechanical MVR, slow VT who presents for follow-up visit regarding AT/AF, slow VT and recent pacemaker adjustment. She is now s/p NEEDLE LOOM SETTER-D upgrade for frequent pacing and worsening LV function. She then underwent AVN ablation 06/19/22 after failing sotalol re-loading (QT prolongation). She was found to be tracking a slower atrial tachycardia today and reprogrammed and lower rate dropped to 80bpm. Prior to today she has been feeling tired and dyspneic with exertion still; but I think today's changes will help. PAST MEDICAL HISTORY Diagnosis Date Atrial fibrillation (HCC) Chronic gastric ulcer GERD (gastroesophageal reflux disease) H/O mitral valve replacement mechanical valve H/O myomectomy cardiac HOCM (hypertrophic obstructive cardiomyopathy) (HCC) HTN (hypertension) Hypertrophic cardiomyopathy (HCC) ICD (implantable cardioverter-defibrillator) in place Palpitations Tachycardia TIA (transient ischemic attack) history of V tach PAST SURGICAL HISTORY Procedure Laterality Date AICD, DUAL CHAMBER 2007 EGD BIOPSY SING OR MULT 10/03/2021 2 gastric ulcers; atrophic fundus of stomach HYSTERECTOMY HX KRUGER W/O FACETEC FORAMOT/DSC 09/14 VRT SGM CRV 1995 DISCECTOMY. Laminectomy, cervical STAB PHLEBECTOMY VARICOSE VEINS >20 Social History Tobacco Use Smoking status: Former Packs/day: 1.00 Years: 10.00 Pack years: 10.00 Types: Cigarettes Quit date: 05/01/1983 Years since quittin.2 Smokeless tobacco: Never Vaping Use Vaping Use: Never used Substance Use Topics Alcohol use: Yes Comment: Rare Drug use: Never FAMILY HISTORY Problem Relation Age of Onset Alzheimer's Disease Mother Stroke Mother Alcohol/Drug Father ALCOHOL Heart Father ?CAROTID. Breast Cancer Maternal Grandmother ALLERGIES No Known Allergies Current Outpatient Medications Medication Sig warfarin (COUMADIN) 1 mg tablet Take with 5 mg tablet as directed by physician. methIMAzole (TAPAZOLE) 5 mg tablet Take 0.5 tablets by mouth every other day. warfarin (COUMADIN) 5 mg tablet 5 mg Wed/Wed, 2.5 mg all other days or as directed furosemide (LASIX) 40 mg tablet Take 0.5 tablets by mouth twice daily. metoprolol succinate ER (TOPROL XL) 50 mg 24 hr tablet Take 1 tablet by mouth once daily. potassium chloride (K-TAB) 10 mEq tablet Take 1 tablet by mouth daily with breakfast. aspirin 81 mg chewable tablet Take 81 mg by mouth once daily. multivitamin tablet Take 1 tablet by mouth once daily. pantoprazole DR (PROTONIX) 40 mg tablet Take 1 tablet by mouth once daily. Current Facility-Administered Medications Medication Dose Route Frequency perflutren lipid microspheres 1.3 mL in NaCl (PF) 0.9% 10 mL injection (DEFINITY) INTRAVENOUS DIRECTED PRN sodium chloride 0.9 % (flush) 10 mL (BD POSIFLUSH) 10 mL INTRAVENOUS DIRECTED PRN perflutren lipid microspheres 1.3 mL in NaCl (PF) 0.9% 10 mL injection (DEFINITY) INTRAVENOUS DIRECTED PRN sodium chloride 0.9 % (flush) 10 mL (BD POSIFLUSH) 10 mL INTRAVENOUS DIRECTED PRN REVIEW OF SYSTEMS: A complete review of systems was obtained from the patient and there is nothing pertinent other than what is mentioned in the HPI. PHYSICAL EXAMINATION: BP 120/80 (BP Site: Right Arm, BP Position: Sitting, BP Cuff Size: Regular Adult) Pulse 91 Ht 167.6 cm (5' 6) Wt 65.8 kg (145 lb) BMI 23.40 kg/m GENERAL: No acute distress, speaking comfortably in full sentences HENT: Normocephalic, atraumatic EYES: Extraocular movements intact NECK: Full range of motion PULMONARY:Normal respiratory effort, clear to auscultation bilaterally CARDIAC: Regular rate and rhythm, no murmurs, rubs or gallops. No cyanosis, clubbing or edema. Leftsided implant site is c/d/i. ABDOMEN: Soft, non-tender and non-distended SKIN: Warm, dry, normal turgor, no pallor NEURO: Alert and oriented PSYCH: Appropriate mood and affect CARDIOVASCULAR MEDICINE TESTING: I have independently reviewed the following studies and my interpretation is as follows: Today's ECG shows AT/AFL with demand ventricular pacing Device interrogation today 02/11/2022 NEEDLE LOOM SETTER-D EVALUATION PRESENTS FOR: Office visit with Dr. Guy and 5 week post implant device check. PRESENTING EGM: AT/BP, atrial rate ~112 bpm (not triggering mode switch) with Bi-V pace tracking. UNDERLYING RHYTHM: Atrial tachycardia with ectopy. BATTERY STATUS: Estimated time remaining to ISIDRO is 8 yrs. COUNTERS SINCE: 01/09/2022 ATRIAL ARRHYTHMIAS: AT/AF burden 0%. However, presenting underlying AT at rate ~112 bpm today. Anticoagulants listed: Eliquis. Discussed with Dr. Guy, program to DDIR. VENTRICULAR ARRHYTHMIAS: There have been no ventricular detections since the last evaluation. LEAD MEASUREMENTS: Capture and sensing are appropriate. The pacing outputs maintain safety margin. Review of the lead impedance trends are normal. IMPLANT SITE/ SYMPTOMS: The incision and pocket are pain-free (0/10), well healed and without signsof erosion or infection. No arm swelling, syncope, pre- syncope or device related pocket stimulation. OTHER DIAGNOSTICS: RV pacing 96% and LV pacing 99% PROGRAMMING CHANGES MADE TODAY: Programmed from DDDR to DDIR r/t tracking AT. FOLLOW UP: Remotes every 3 months and yearly in-clinic Sondra Estrada RN ADDITIONAL TESTING TSH Date Value Ref Range Status 05/14/2022 1.590 0.270 - 4.200 mIU/L Final Hemoglobin (g/dL) Date Value 05/14/2022 11.0 10/30/2021 9.2 Hematocrit (%) Date Value 05/14/2022 37.4 10/30/2021 30.0 WBC (k/uL) Date Value 05/14/2022 6.55 10/30/2021 6.30 Platelet Count (k/uL) Date Value 05/14/2022 225 10/30/2021 293 BMP Latest Ref Rng & Units 05/14/2022 05/13/2022 05/12/2022 GLUCOSE 74 - 99 mg/dL 107(H) 95 100(H) BUN 7 - 21 mg/dL 22(H) 26(H) 29(H) CREATININE 0.58 - 0.96 mg/dL 1.25(H) 1.28(H) 1.29(H) SODIUM 136 - 144 mmol/L 139 139 139 POTASSIUM 3.7 - 5.1 mmol/L 4.1 3.6(L) 4.1 CHLORIDE 97 - 105 mmol/L 106(H) 106(H) 105 CO2 22 - 30 mmol/L 22 23 24 ANION GAP 9 - 18 mmol/L 11 10 10 CALCIUM, TOTAL 8.5 - 10.2 mg/dL 9.1 9.0 8.9 eGFR >=60 mL/min/1.73m 47(L) 46(L) 46(L) EGFR- - - - - EGFR-ALL OTHER RACES . - - - IMPRESSION: Ms. Daniel is a 66 year old year old FEMALE with a history of HCM, DCICD, persistent AT/AF, mechanical MVR, slow VT who presents for follow-up visit regarding AT/AF, slow VT and recent pacemaker adjustment. PLAN AND RECOMMENDATIONS: HCM, NICM Now s/p NEEDLE LOOM SETTER-D upgrade On Toprol XL 50mg daily, lasix No ACEi/ARB secondary to CKD VT Mexiletine 150mg twice daily - stopped due to side effects No recent episodes AT/AF Now s/p AVN ablation Rate dropped to 80bpm today Reprogrammed to non-tracking mode Lower to 70-bpm next month Return 3 months CONTACT INFORMATION: Oneyda Guy MD, [facility] Physician Non Invasive Cardiologist of Arrhythmia & Cardiac Device Monitoring, [facility] [employer], [facility] Jacob Batista [facility] Jada Martino Department of Cardiovascular Medicine Cardiac Electrophysiology and Pacing Section [address], [address] [place], [place] [address] (p): [phone] (f): [phone] documented in this encounterTrumbull Memorial Hospital11-08-2022 Miscellaneous Notes* Telephone Encounter - Vilma Crespo Ma - 07/21/2022 5:07 PM EST Detailed message left on pt identified VM. Tracker and med list updated. Vilma Crespo Ma * Telephone Encounter - Yordy Allen MD - 07/21/2022 5:05 PM EST INR good at 2.3 Stay on 6 mg on Wed, 2.5 mg all other days Recheck in 2 weeks Yordy Allen MD * Telephone Encounter - Vilma Crespo Ma - 07/21/2022 11:11 AM EST Last INR: INR 2.3 07/21/2022 Current dose of coumadin is: 6 mg on Wed, 2.5 mg all other days. Last date of dose change: 06/22/22. Previous INR (date and result): 07/13/22 INR: 2.7 Additional Clinical Information or narrative: no documented in this encounterCleveland [id number] Miscellaneous Notes* Telephone Encounter - Bernadette Elam LPN - 07/13/2022 5:29 PM EDT Pt. informed detailed message left on VM.She is to return call and verify message. * Telephone Encounter - Byron Izquierdo DO - 07/13/2022 5:19 PM EDT Agree with below Recheck INR 4 weeks Byron Izquierdo DO * Telephone Encounter - Vilma Crespo Ma - 07/13/2022 11:06 AM EDT Last INR: INR 2.7 07/13/2022 Current dose of coumadin is: 6 mg Wed, 2.5 mg all other days. Last date of dose change: 06/22/22. Previous INR (date and result): 06/29/22 INR: 2.9 Additional Clinical Information or narrative: no documented in this encounterTrumbull Memorial Hospital10-28-2022 Miscellaneous Notes* Telephone Encounter - Kaylynn Fitzpatrick RN - 07/10/2022 12:25 PM EDT Detailed message left for Jessika per encounter below informing of Dr. Guy's message below. Instructed to sultana with any further questions or concerns. Kaylynn Fitzpatrick RN * Telephone Encounter - Kaylynn Fitzpatrick RN - 07/10/2022 12:23 PM EDT Images from the original note were not included. Oneyda Guy MD You 2 hours ago (9:41 AM) Yes it's ok to pursue further testing for sleep apnea; this may explain why she is so tired! You Oneydamarcelino Guy MD Yesterday (10:34 AM) [place] Looks like the last estimated EF was 45-50 - please advise of OK to proceed or if you'd like to repeat echo. thanks * Telephone Encounter - Bela Huang Pss - 07/08/2022 3:52 PM EDT Contact Information: Please contact Jessika Curry at [phone] Patient message detail: Got a call from Jessika regarding the patient she want to do additional study on the patient due to the sleep study performed. It was found that the patient has severe Central Sleep Apnea and she needs an ASV Study needs an EF of 45%. Please contact she needs to know if she can do additional study on patient. Is it ok to leave detailed message on voice mail : Yes documented in this encounterTrumbull Memorial Hospital10-17-2022 Miscellaneous Notes* Telephone Encounter - Dominga Johnson LPN - 06/29/2022 4:36 PM EDT Spoke with pt and information listed below given. Pt verbalizes understanding. Dominga Johnson LPN * Telephone Encounter - Yordy Allen MD - 06/29/2022 3:39 PM EDT INR good at 2.9 Stay on 6 mg Wed, 2.5 mg all other days Recheck in 1 week Yordy Allen MD * Telephone Encounter - Vilma Crespo Ma - 06/29/2022 1:53 PM EDT Last INR: INR 2.9 06/29/22 Current dose of coumadin is: 6 mg Wed, 2.5 mg all other days. Last date of dose change: 06/22/22. Previous INR (date and result): 06/22/22 INR: 3.4 Additional Clinical Information or narrative: no documented in this encounterTrumbull Memorial Hospital10-10-2022 Miscellaneous Notes* Telephone Encounter - Fiona Scales MA - 06/22/2022 3:01 PM EDT Patient notified and voiced understanding. Fiona Scales MA * Telephone Encounter - Star Saba MD - 06/22/2022 1:38 PM EDT Advise patient to hold her coumadin today. Starting tomorrow take 6 mg on Wed only and 2.5 mg all other days. I sent in a script for 1 mg tabs to use with her 5 mg tab to make 6 mg on Wed. Needs next INR in a week. The following approved medication requests have been transmitted electronically. Requested Prescriptions Signed Prescriptions Disp Refills warfarin (COUMADIN) 1 mg tablet 30 tablet 1 Sig: Take with 5 mg tablet as directed by physician. Authorizing Provider: STAR SABA MD * Telephone Encounter - Vilma Crespo Ma - 06/22/2022 1:18 PM EDT Last INR: INR 3.4 06/22/2022 Current dose of coumadin is: 5 mg Mon/Wed, 2.5 mg all other days. Last date of dose change: 05/26/22. Previous INR (date and result): 06/15/22 INR: 2.8 Additional Clinical Information or narrative: no documented in this encounterTrumbull Memorial Hospital10-03-2022 Miscellaneous Notes* Telephone Encounter - Bozena Benton RN - 06/15/2022 12:20 PM EDT Spoke with patient. Given message from provider's office. Patient verbalizes understanding. Bozena Benton RN * Telephone Encounter - Allyson Lopez RN - 06/15/2022 11:57 AM EDT Called and left a voicemail for the Patient to call back and ask for a nurse to receive the providers message. Allyson Lopez RN * Telephone Encounter - Gerry Garcia MD - 06/15/2022 11:50 AM EDT INR therapeutic. Continue current coumadin dosage and follow up in 4 weeks. * Telephone Encounter - Vilma Crespo Ma - 06/15/2022 11:43 AM EDT Last INR: INR 2.8 06/15/2022 Current dose of coumadin is: 5 mg Mon & Wed and 2.5 mg all other days. Last date of dose change: 05/26/22. Previous INR (date and result): 06/01/22 INR: 2.7 Additional Clinical Information or narrative: no documented in this encounterTrumbull Memorial Hospital09-21-2022 Miscellaneous Notes* Telephone Encounter - Vilma Crespo Ma - 06/03/2022 4:23 PM EDT Pt scheduled with Gilles Colorado on 06/08/22 at 10:40 for in office appt. Fax office note from 06/08/22 to [facility] Sleep lab at number listed below. Vilma Crespo Ma * Telephone Encounter - Gilles Colorado APRN.CNP - 06/03/2022 9:43 AM EDT I did a phone encounter with the patient. Is that not good enough for insurance. I was trying to save her a visit. If this is not good enough, then we can just do a virtual if the patient is willing. Gilles Colorado APRN.CNP * Telephone Encounter - Celsa Jacobs Ma - 06/03/2022 9:[address] Allen see note below. Gilles Colorado CNP ordered this on 05/25. If pt agreeable can we do a virtual visit vs in office to discuss her sleep issues? Advise, so I can update pt. Celsa Jacobs Ma * Telephone Encounter - Nallely Simmons LPN - 06/02/2022 2:15 PM EDT Sondra with [facility] Sleep Center calls to report she received order for Sleep Study and needs OV notesto support order. Pt called on 05/25 requesting order to go to [facility] Sleep Lab and orders were signed by Gilles Colorado CNP. Sondra reports for insurance purposes they cannot do sleep test without pt being seen by pcp and OV notes that support need for sleep study. Sondra reports pcp's office will need to contact pt and advise pt of this. Sondra reports as soonas they have OV notes they can schedule pt. / Nallely Simmons LPN documented in this encounterTrumbull Memorial Hospital09-20-2022 Miscellaneous Notes* Telephone Encounter - Floridalma Wells RN - 06/02/2022 12:08 PM EDT Left message for patient asking if she if able to change her appt time on 06/08 to 920 am. documented in this encounterTrumbull [facility] Hospital09-19-2022 Miscellaneous Notes* Telephone Encounter - Vilma Crespo Ma - 06/01/2022 4:50 PM EDT Pt notified. Tracker and med list updated. Vilma Crespo Ma * Telephone Encounter - Yordy Allen MD - 06/01/2022 4:19 PM EDT INR good at 2.7 Stay on 5 mg Mon/Wed, 2.5 mg all other days Recheck in 1 week Yordy Allen MD * Telephone Encounter - Vilma Crespo Ma - 06/01/2022 3:51 PM EDT Last INR: INR 2.7 06/01/2022 Current dose of coumadin is: 5 mg Mon/Wed, 2.5 mg all other days. Last date of dose change: 05/26/22. Previous INR (date and result): 05/26/22 INR: 1.8 Additional Clinical Information or narrative: no documented in this encounterTrumbull [facility] Hospital09-17-2022 Miscellaneous Notes* Telephone Encounter - Eliza Jones RN - 05/30/2022 10:14 AM EDT Left a voicemail message Sorry that we missed you. We are calling to see how you are doing and will try reaching back at a later time. If you are having any new or worsening symptoms or questions or concerns to he 24 hour nurse line at [phone]. If there are any medical emergencies to call 911 or go to the nearest emergency room. documented in this encounterTrumbull [facility] Hospital09-13-2022 Miscellaneous Notes* Telephone Encounter - Karen Alvarez Ma - 05/26/2022 2:02 PM EDT Patient instructed of dosage with teach back method. Verbalizes understanding. * Telephone Encounter - Bhargav Boyer MD - 05/26/2022 1:40 PM EDT 5m M and W, 2.5 mg a day rest of the week. Recheck one week * Telephone Encounter - Vilma Crespo Ma - 05/26/2022 1:18 PM EDT Last INR: INR 1.8 05/26/2022 Current dose of coumadin is: 5 mg Mon, 2.5 mg all other days. Last date of dose change: 05/04/22. Previous INR (date and result): 05/04/22 INR: 4.2 Additional Clinical Information or narrative: no documented in this encounterTrumbull [facility] Hospital09-08-2022 Miscellaneous Notes* Telephone Encounter - Oneyda Guy MD - 05/21/2022 12:58 PM EDT Elective admission for Electrophysiology Service at [facility] Attending: Brooks Diagnosis: Rapid AFib Date of admission: 06/18 or 06/19 Time of procedure: tbd Overnight stay? no H&P by PA: no Labs: no Labs to be done: no Procedure: Avn ablation Additional notes: no Vendor: none Anesthesia: no MICHAEL: no Possible study patient? no Instructions to patient: 1. Do not stop any blood thinners unless specific instructions above 2. Bxf-akswsuy-awaqmtnfq diabetics should hold morning diabetic medications. Insulin-dependent diabetics should take half their normal insulin. 3. Please check that precertification has been completed if needed. documented in this encounterTrumbull [facility] Hospital09-03-2022 History of Present illness Narrative* Em Hinson RN - 05/16/2022 9:19 AM EDT TRANSITIONAL CARE MANAGEMENT (TCM) COMMUNITY MONITORING PROGRAM Provider Action/FYI: CARDS appt 06/09/22 Check an INR on 05/18/2022. Unable to reach patient-left voicemail-2nd attempt SUMMARY: Pt discharged from [facility] on 05/14/22 Admitted for: Sotalol loading for persistent atrial fibrillation/atrial tachycardia ( unsuccessful) Contact made with patient: No - 2nd unsuccessful attempt - end outreach and close encounter Outreach ended TCM Home Visit Referral Source of Stratification: [facility] Admission Status: Discharged Readmission Risk Score: 24 NANCY Score: 8 Program referral criteria met: Does not meet referral criteria Patient does not qualify for High Risk TCM Home Visit program due to: Does not meet referral criteria Patient does not quality for High Risk TCM Home Visit Program due to: Does not meet referral criteria Preferred contact number: NA Is patient staying somewhere other than the listed home address: No Dialysis Patient: No * Bernadette Diop RN - 05/15/2022 2:16 PM EDT TRANSITIONAL CARE MANAGEMENT (TCM) COMMUNITY MONITORING PROGRAM Provider Action/FYI: attempted to reach patient for initial hospital d/c outreach. No answer. Left voice mail message that we will attempt to reach patient tomorrow. Transitions of Care Critical Issues: Follow-up with Dr. Guy in 1 to 2 weeks. Check an INR on 05/18/2022. Patient stated that she checks her INR is at home. Strongly encouraged her to remain compliant with her warfarin and to communicate with administering provider to make adjustments/modifications to warfarin dosing as deemed appropriate. pt does not have f/u appt scheduled with pcp at this time card f/u 06/09/22 SUMMARY: Pt discharged from [facility] on 05/14/22 Admitted for: Sotalol loading for persistent atrial fibrillation/atrial tachycardia ( unsuccessful) Contact made with patient: No - next outreach attempt will be on next business day Outreach ended TCM Home Visit Referral Source of Stratification: [facility] Admission Status: Discharged Readmission Risk Score: 24 NANCY Score: 8 Program referral criteria met: Does not meet referral criteria Patient does not qualify for High Risk TCM Home Visit program due to: Does not meet referral criteria Patient does not quality for High Risk TCM Home Visit Program due to: Does not meet referral criteria Preferred contact number: NA Is patient staying somewhere other than the listed home address: No Dialysis Patient: No Bernadette Diop RNacreage reporter documented in this encounterTrumbull Memorial Hospital08-31-2022 [facility] 05-12-2022 [facility]08-29-2022 [facility]08-29-2022 NoteHNO ID: [id number] Author: Arely Saul RN Service: ? Author Type: Registered Nurse Type: Nursing Progress Note Filed: 05/11/2022 2:07 PM Note Text: Procedure cancelled per Dr. Moore discussion with Dr. Guy.[facility] 04-13-2022 Miscellaneous Notes* Telephone Encounter - Bernadette Elam LPN - 04/13/2022 5:18 PM EDT Pt. informed detailed message left on VM. She is to return call and verify message. Bernadette Elam LPN * Telephone Encounter - Byron Izquierdo DO - 04/13/2022 5:07 PM EDT Continue same dose, recheck INR 2 weeks Byron Izquierdo DO * Telephone Encounter - Vilma Crespo Ma - 04/13/2022 2:59 PM EDT Last INR: INR 2.6 04/13/2022 Current dose of coumadin is: 2.5 mg MWF, 5 mg all other days. Last date of dose change: 04/08/22. Previous INR (date and result): 04/08/22 INR: 4.5 Additional Clinical Information or narrative: no documented in this encounterTrumbull [facility] Hospital07-28-2022 Miscellaneous Notes* Telephone Encounter - Allyson Lopez RN - 04/09/2022 11:11 AM EDT Pt called and is notified of providers message and instructions. Pt voices understanding. Allyson Lopez RN * Telephone Encounter - Bhargav Boyer MD - 04/09/2022 10:59 AM EDT Wow. Let her know to NEVER change her doses without telling us. That is very dangerous. Right now she is way too thin so her self adjusting is not going well. If she is taking it 5 mg a day, hold x 2 days and call if any bleeding issues. Change starting Wednesday to 2.5 MWF, 5 mg a day rest of the week. Recheck one week. Also I will forward this to Dr Allen on his return to be aware * Telephone Encounter - Vilma Crespo Ma - 04/09/2022 10:54 AM EDT Spoke with pt who stated she is not taking the coumadin as instructed below. She stated a few months ago, she started taking 5 mg daily. I asked her who changed her dosage, she stated my daughter might have had a hand in it. I asked if a Doctor advised her to change her dosage and she stated No,I did because I can't have my blood thick. Please advise. Pt does home INR checking and states she checks weekly to monthly. Vilma Crespo Ma * Telephone Encounter - Bhargav Boyer MD - 04/09/2022 8:05 AM EDT inr is up. It looks like she only takes it three days a week. And next dose is Sat. I would hold Wednesday dose and recheck Wednesday don't take any until rechecked. Call if any bleeding. * Telephone Encounter - Celsa Jacobs Ma - 04/09/2022 7:54 AM EDT Last INR: INR 4.5 04/08/2022 Current dose of coumadin is: 2.5 mg Wed, Wed, Wed and 0 mg all other days. Last date of dose change: 02/02/55. Previous INR (date and result): 3.0 on 02/17/22 Additional Clinical Information or narrative: yes: Pt was in ED, was to have Cardioversion. See Cardio, unsure if she was off medication Celsa Jacobs Ma documented in this encounterTrumbull [facility] Hospital06-23-2022 Miscellaneous Notes* Telephone Encounter - Aimee Mosqueda RN - 03/05/2022 12:11 PM EDT Spoke with Device RN, Bozena Figueroa, who will contact patient. Aimee Mosqueda RN * Telephone Encounter - Charline Costa - 03/05/2022 11:59 AM EDT Contact Information: [place] [phone] Patient message detail: Patient is supposed to have a remote device check on Wednesday and she doesn't have her new machine athome and is not sure how that is going to work without the machine. Please Advise Is it ok to leave detailed message on voice mail : Yes Charline Costa documented in this encounterTrumbull Memorial Hospital06-14-2022 Miscellaneous Notes* Telephone Encounter - Gretta Medrano - 02/24/2022 10:48 AM EDT Called patient and left a vm to call office and schedule a follow up appointment for April. Patient has also been added to wait list. * Telephone Encounter - Rodney Castro MD - 02/23/2022 4:50 PM EDT Add to the waitlist for an april appointment Rodney Castro MD documented in this encounterTrumbull Memorial Hospital06-07-2022 Miscellaneous Notes* Telephone Encounter - Vilma Crespo Ma - 02/17/2022 4:16 PM EDT Pt notified and voiced understanding. Tracker and med list updated. Vilma Crespo Ma * Telephone Encounter - Yordy Allen MD - 02/17/2022 4:12 PM EDT INR good at 3.0 Stay on 2.5 mg Mon/Wed/Sat, NONE all other days. Recheck in 2 weeks Yordy Allen MD * Telephone Encounter - Vilma Crespo Ma - 02/17/2022 1:24 PM EDT Last INR: INR 3.0 02/17/2022 Current dose of coumadin is: 2.5 mg Mon/Wed/Sat, NONE all other days. Last date of dose change: 02/02/22. Previous INR (date and result): 02/02/22 INR: 3.1 Additional Clinical Information or narrative: no documented in this encounterTrumbull Memorial Hospital06-01-2022 History of Present illness Narrative* Oneyda Guy MD - 02/11/2022 3:36 PM EDT Images from the original note were not included. [facility] Department of Cardiovascular Medicine SECTION OF CLINICAL CARDIAC ELECTROPHYSIOLOGY OUTPATIENT VISIT DATE 02/11/2022 OUTPATIENT VISIT TYPE Established PRIMARY CARE PHYSICIAN: Yordy Allen [address] [place] [address] CHIEF COMPLAINT: AT HISTORY OF PRESENT ILLNESS: Ms. Daniel is a 66 year old year old FEMALE with a history of HCM, DCICD, persistent AT/AF, mechanical MVR, slow VT who presents for follow-up visit regarding AT/AF, slow VT and recent pacemaker adjustment. She is now s/p NEEDLE LOOM SETTER-D upgrade for frequent pacing and worsening LV function. She is back in a slow AT, which she was tracking. Changed to DDI today in device clinic. Symptoms include shortness of breath and fatigue but these are dramatically better. Her daughter is on the phone and states she is much better since the device upgrade. PAST MEDICAL HISTORY Diagnosis Date Atrial fibrillation (HCC) Chronic gastric ulcer GERD (gastroesophageal reflux disease) H/O mitral valve replacement mechanical valve H/O myomectomy cardiac HOCM (hypertrophic obstructive cardiomyopathy) (HCC) HTN (hypertension) Hypertrophic cardiomyopathy (HCC) ICD (implantable cardioverter-defibrillator) in place Palpitations Tachycardia TIA (transient ischemic attack) history of V tach (HCC) PAST SURGICAL HISTORY Procedure Laterality Date AICD, DUAL CHAMBER 2007 EGD BIOPSY SING OR MULT 10/03/2021 2 gastric ulcers; atrophic fundus of stomach HYSTERECTOMY HX KRUGER W/O FACETEC FORAMOT/DSC 09/14 VRT SGM CRV 1995 DISCECTOMY. Laminectomy, cervical STAB PHLEBECTOMY VARICOSE VEINS >20 Social History Tobacco Use Smoking status: Former Smoker Packs/day: 1.00 Years: 10.00 Pack years: 10.00 Types: Cigarettes Quit date: 05/01/1983 Years since quittin.8 Smokeless tobacco: Never Used Vaping Use Vaping Use: Never used Substance Use Topics Alcohol use: Yes Comment: Rare Drug use: Never FAMILY HISTORY Problem Relation Age of Onset Alzheimer's Disease Mother Stroke Mother Alcohol/Drug Father ALCOHOL Heart Father ?CAROTID. Breast Cancer Maternal Grandmother ALLERGIES No Known Allergies Current Outpatient Medications Medication Sig metoprolol succinate ER (TOPROL XL) 50 mg 24 hr tablet Take 50 mg by mouth once daily. metoprolol succinate ER (TOPROL XL) 100 mg Take 1 tablet by mouth once daily. (Patient taking differently: Take 50 mg by mouth once daily. ) pantoprazole DR (PROTONIX) 40 mg tablet Take 1 tablet by mouth once daily. warfarin (COUMADIN) 5 mg tablet 2.5 mg M///Wed, NONE all other days or as directed methIMAzole (TAPAZOLE) 5 mg tablet Take 1 tablet by mouth once daily. furosemide (LASIX) 40 mg tablet Take 1 tablet by mouth twice daily. potassium chloride (K-TAB) 10 mEq tablet Take 1 tablet by mouth daily with breakfast. aspirin 81 mg chewable tablet Take 81 mg by mouth once daily. multivitamin tablet Take 1 tablet by mouth once daily. mexiletine (MEXITIL) 150 mg capsule Take 1 capsule by mouth three times daily. Mnzider-Erw-Kwz B1-U7-Sxhuxphu (CALCIUM CITRATE + D WITH MAG) [id number] xi-js-ad-unit tab Take 1tablet by mouth once daily. (Patient not taking: Reported on 12/23/2021 ) Cholecalciferol, Vitamin D3, 5,000 unit tab Take 1 tablet by mouth once daily. (Patient not taking:Reported on 12/23/2021 ) Current Facility-Administered Medications Medication Dose Route Frequency perflutren lipid microspheres 1.3 mL in NaCl (PF) 0.9% 10 mL injection (DEFINITY) INTRAVENOUS DIRECTED PRN sodium chloride 0.9 % (flush) 10 mL (BD POSIFLUSH) 10 mL INTRAVENOUS DIRECTED PRN perflutren lipid microspheres 1.3 mL in NaCl (PF) 0.9% 10 mL injection (DEFINITY) INTRAVENOUS DIRECTED PRN sodium chloride 0.9 % (flush) 10 mL (BD POSIFLUSH) 10 mL INTRAVENOUS DIRECTED PRN perflutren lipid microspheres 1.3 mL in NaCl (PF) 0.9% 10 mL injection (DEFINITY) INTRAVENOUS DIRECTED PRN sodium chloride 0.9 % (flush) 10 mL (BD POSIFLUSH) 10 mL INTRAVENOUS DIRECTED PRN REVIEW OF SYSTEMS: A complete review of systems was obtained from the patient and there is nothing pertinent other than what is mentioned in the HPI. PHYSICAL EXAMINATION: BP 100/62 (BP Site: Left Arm, BP Position: Sitting, BP Cuff Size: Regular Adult) Ht 165.1 cm (5' 5) Wt 65.8 kg (145 lb 1.6 oz) BMI 24.15 kg/m GENERAL: No acute distress, speaking comfortably in full sentences HENT: Normocephalic, atraumatic EYES: Extraocular movements intact NECK: Full range of motion PULMONARY:Normal respiratory effort, clear to auscultation bilaterally CARDIAC: Regular rate and rhythm, no murmurs, rubs or gallops. No cyanosis, clubbing or edema. Leftsided implant site is c/d/i. ABDOMEN: Soft, non-tender and non-distended SKIN: Warm, dry, normal turgor, no pallor NEURO: Alert and oriented PSYCH: Appropriate mood and affect CARDIOVASCULAR MEDICINE TESTING: I have independently reviewed the following studies and my interpretation is as follows: Today's ECG shows AT/AFL with demand ventricular pacing Device interrogation today 02/11/2022 NEEDLE LOOM SETTER-D EVALUATION PRESENTS FOR: Office visit with Dr. Guy and 5 week post implant device check. PRESENTING EGM: AT/BP, atrial rate ~112 bpm (not triggering mode switch) with Bi-V pace tracking. UNDERLYING RHYTHM: Atrial tachycardia with ectopy. BATTERY STATUS: Estimated time remaining to ISIDRO is 8 yrs. COUNTERS SINCE: 01/09/2022 ATRIAL ARRHYTHMIAS: AT/AF burden 0%. However, presenting underlying AT at rate ~112 bpm today. Anticoagulants listed: Eliquis. Discussed with Dr. Guy, program to DDIR. VENTRICULAR ARRHYTHMIAS: There have been no ventricular detections since the last evaluation. LEAD MEASUREMENTS: Capture and sensing are appropriate. The pacing outputs maintain safety margin. Review of the lead impedance trends are normal. IMPLANT SITE/ SYMPTOMS: The incision and pocket are pain-free (0/10), well healed and without signsof erosion or infection. No arm swelling, syncope, pre- syncope or device related pocket stimulation. OTHER DIAGNOSTICS: RV pacing 96% and LV pacing 99% PROGRAMMING CHANGES MADE TODAY: Programmed from DDDR to DDIR r/t tracking AT. FOLLOW UP: Remotes every 3 months and yearly in-clinic Sondra Estrada RN ADDITIONAL TESTING TSH Date Value Ref Range Status 12/09/2021 5.380 (H) 0.270 - 4.200 mIU/L Final Hemoglobin (g/dL) Date Value 01/08/2022 9.7 10/30/2021 9.2 Hematocrit (%) Date Value 01/08/2022 33.6 10/30/2021 30.0 WBC (k/uL) Date Value 01/08/2022 6.60 10/30/2021 6.30 Platelet Count (k/uL) Date Value 01/08/2022 236 10/30/2021 293 BMP Latest Ref Rng & Units 01/08/2022 01/08/2022 10/30/2021 GLUCOSE 74 - 99 mg/dL 111(H) 103(H) 108(H) BUN 7 - 21 mg/dL 30(H) 36(H) 25(H) CREATININE 0.58 - 0.96 mg/dL 1.67(H) 1.82(H) 1.51(H) SODIUM 136 - 144 mmol/L 139 139 137 POTASSIUM 3.7 - 5.1 mmol/L 3.7 3.8 3.4(L) CHLORIDE 97 - 105 mmol/L 105 106(H) 103 CO2 22 - 30 mmol/L 22 20(L) 21(L) ANION GAP 9 - 18 mmol/L 12 13 13 CALCIUM, TOTAL 8.5 - 10.2 mg/dL 8.6 9.1 8.9 eGFR >=60 mL/min/1.73m 33(L) 30(L) 34 EGFR- - - - 42 EGFR-ALL OTHER RACES . - - 34 IMPRESSION: Ms. Daniel is a 66 year old year old FEMALE with a history of HCM, DCICD, persistent AT/AF, mechanical MVR, slow VT who presents for follow-up visit regarding AT/AF, slow VT and recent pacemaker adjustment. PLAN AND RECOMMENDATIONS: HCM, NICM Now s/p NEEDLE LOOM SETTER-D upgrade On Toprol XL 50mg daily, lasix No ACEi/ARB secondary to CKD Further afterload reduction precluded by hypotension VT Mexiletine 150mg twice daily AT/AF Consider re-loading with sotalol (previously effective but then stopped) if symptoms worsen. Overall feeling much better since upgrade so will hold off for now (reprogrammed to DDI mode) Previously failed amiodarone and dofetilide Repeat ablation is likely low yield and high risk given comorbidities Return 3 months CONTACT INFORMATION: Oneyda Guy MD, [facility] Physician Non Invasive Cardiologist of Arrhythmia & Cardiac Device Monitoring, [facility] [employer], [facility] Jacob Batista [facility] Department of Cardiovascular Medicine Cardiac Electrophysiology and Pacing Section [address] [place], [place] [address] (p): [phone] (f): [phone] documented in this encounterTrumbull Memorial Hospital05-23-2022 Miscellaneous Notes* Telephone Encounter - Allyson Lopez RN - 02/02/2022 11:06 AM EDT Pt called and is notified of providers results and instructions. Pt voices understanding. Allyson Lopez RN * Telephone Encounter - Yordy Allen MD - 02/02/2022 11:02 AM EDT INR now a little high at 3.1 Go back to 2.5 mg Mon/Wed/Sat, NONE all other days. Recheck in 2 weeks Yordy Allen MD * Telephone Encounter - Veronica Purcell Ma - 02/02/2022 8:43 AM EDT Last INR: INR 3.1 02/01/2022 Current dose of coumadin is: 2.5 mg on Mon, Weds, Fri andSat; none on other days Last date of dose change: 01/19/22. Previous INR (date and result): 1.6 on 01/19/22 Additional Clinical Information or narrative: no documented in this encounterTrumbull Memorial Hospital05-10-2022 History of Present illness Narrative* Brisa Sexton RN - 01/20/2022 1:06 PM EDT [facility] Enrollment Provider Action/FYI: 3rd attempt, left vmm Patient referred by: [facility] Ashtyn Contact made with patient: No - 2nd attempt to reach patient, left another message: Hi my name is Brisa Sexton RN and I am calling from the [facility] on behalf of your PCP, Yordy Allen MD. We are excited to share with you a new program to help you manage your health. (Keep encounter open for additional two business days in case patient calls back. Close encounter if no response by end of second business day) Closing: Could not reach the patient after attempted outreaches. 3 attempts plus Mychart message that was read END OUTREACH documented in this encounterTrumbull Memorial Hospital05-10-2022 History of Present illness Narrative* Brisa Sexton RN - 01/20/2022 9:15 AM EDT [facility] Enrollment Provider Action/FYI: Left vmm Patient referred by: C Ashtyn Contact made with patient: No - Left Message: Hi my name is Brisa Sexton RN and I am calling from the [facility] on behalf of your PCP, Yordy Allen MD. We are excited to share with you a new program to help you manage your health. Please call me back at [phone] between the hours of8am- 5pm Wednesday-Wednesday. You will receive another phone call from me within the next two business days. I hope you can take the time to speak with me. (Keep encounter open and attempt 2nd outreach in two business days from today) END OUTREACH documented in this encounterTrumbull Memorial Hospital05-09-2022 Miscellaneous Notes* Telephone Encounter - Celsa Jacobs Ma - 01/19/2022 11:55 AM EDT Pt called and notified of message below, verbalized understanding. Tracker updated. Celsa Jacobs Ma * Telephone Encounter - Yordy Allen MD - 01/19/2022 11:48 AM EDT INR low at 1.6 Go to 2.5 mg on Nfz-Xmmy-Bfp-Wed; none on other days Recheck in 1 week Yordy Allen MD * Telephone Encounter - Vilma Crespo Ma - 01/19/2022 9:29 AM EDT Last INR: INR 1.6 01/19/2022 Current dose of coumadin is: 2.5 mg Wed/Wed/Wed, NONE all other days. Last date of dose change: Previous INR (date and result): 01/14/22 INR 3.6 Additional Clinical Information or narrative: no documented in this encounterTrumbull Memorial Hospital05-09-2022 Miscellaneous Notes* Telephone Encounter - Gilles [place] APRN.CNP - 01/19/2022 9:51 AM EDT The following approved medication requests have been transmitted electronically. Signed Prescriptions Disp Refills pantoprazole DR (PROTONIX) 40 mg tablet 30 tablet 11 Sig: Take 1 tablet by mouth once daily. NEHAL: No Gilles [place] APRN.CNP * Telephone Encounter - Celsa Jacobs Ma - 01/19/2022 8:50 AM EDT Last Rx: 10/07/21 #30 w/2. Celsa Jacobs Ma documented in this encounterTrumbull Memorial Hospital05-09-2022 Miscellaneous Notes* Telephone Encounter - Julia Mcgowan Ma - 01/19/2022 8:08 AM EDT Pharmacy electronic RX request to request a refill on the medication(s) below: Pending Prescriptions Disp Refills METOPROLOL SUCCINATE ER 100 MG TABLET,EXTENDED RELEASE 24 HR 30 tablet 0 Sig: Take 1 tablet by mouth once daily. NEHAL: No Pickup RX Physician's Name: Dr. Guy Last seen in office: Visit date not found If last follow up appointment scheduled greater than one year or no follow up scheduled, sent to schedulers: No Follow up scheduled for: 02/11/2022 Julia Mcgowan Ma 01/19/2022 documented in this encounterTrumbull Memorial Hospital05-05-2022 History of Present illness Narrative* Brisa Sexton RN - 01/15/2022 1:13 PM EDT [facility] Enrollment Provider Action/FYI: Left vmm Patient referred by: [facility] Ashtyn Contact made with patient: No - Left Message: Hi my name is Brisa Sexton RN and I am calling from the [facility] on behalf of your PCP, Yordy Allen MD. We are excited to share with you a new program to help you manage your health. You will receive another phone call from me within thenext two business days. I hope you can take the time to speak with me. (Keep encounter open and attempt 2nd outreach in two business days from today) END OUTREACH documented in this encounterTrumbull Memorial Hospital05-04-2022 Miscellaneous Notes* Telephone Encounter - Idalmis Arrington Ma - 01/14/2022 7:11 PM EDT Patient was notified Tracker updated Idalmis Arrington Ma * Telephone Encounter - Yordy Allen MD - 01/14/2022 7:00 PM EDT Go to 2.5 gm on Mon, Weds, Sat; none on other days Recheck in 1 week Yordy Allen MD * Telephone Encounter - Celsa Jacobs Ma - 01/14/2022 3:24 PM EDT Last INR: INR 3.6 01/14/2022 Current dose of coumadin is: 2.5 mg MWF and Sat, 0 mg all other days. Last date of dose change: 12/22/21. Previous INR (date and result): 2.5 on 01/07/22 Additional Clinical Information or narrative: yes: Recent procedure with admission Celsa Jacobs Ma documented in this encounterTrumbull Memorial [facility]04[facility]2022 [facility] 01-07-2022 Miscellaneous Notes* Telephone Encounter - Vilma Crespo Ma - 01/07/2022 3:21 PM EDT Detailed message left on pt identified VM. Tracker and med list updated. Vilma Crespo Ma * Telephone Encounter - Yordy Allen MD - 01/07/2022 3:16 PM EDT INR good at 2.5 Stay on 2.5 mg M/W/F/Sat, NONE all other days. Recheck in 1 week Yordy Allen MD * Telephone Encounter - Vilma Crespo Ma - 01/07/2022 12:35 PM EDT Last INR: INR 2.5 01/07/2022 Current dose of coumadin is: 2.5 mg M/W/F/Sat, NONE all other days. Last date of dose change: 12/22/21. Previous INR (date and result): 12/29/21 INR: 4.5 Additional Clinical Information or narrative: no documented in this encounterTr[facility] Miscellaneous Notes* Telephone Encounter - Oneyda Guy MD - 12/24/2021 5:03 PM EDT Elective admission for Electrophysiology Service at [facility] Attending: Brooks Diagnosis: NICM Date of admission: 01/08/22 Time of procedure: 8 Overnight stay? y H&P by PA: n Labs: y Labs to be done: Cbc, bmp, mg, INR Procedure: NEEDLE LOOM SETTER upgrade Additional notes: Needs venogram before we start. DO NOT STOP COUMADIN (informed patient to notify her PCP that we prefer INR at lower end of her goal range, but within range) Vendor: [employer] Anesthesia: no MICHAEL: no Possible study patient? no Instructions to patient: 1. Do not stop any blood thinners unless specific instructions above 2. Htq-cqiymqk-bixdrukqc diabetics should hold morning diabetic medications. Insulin-dependent diabetics should take half their normal insulin. 3. Please check that precertification has been completed if needed. documented in this encounterTrumbull [facility]04-13-2022 History of Present illness Narrative* Oneyda Guy MD - 12/24/2021 4:45 PM EDT Images from the original note were not included. [facility] Department of Cardiovascular Medicine SECTION OF CLINICAL CARDIAC ELECTROPHYSIOLOGY OUTPATIENT VISIT DATE 12/24/2021 OUTPATIENT VISIT TYPE Established PRIMARY CARE PHYSICIAN: Yordy Allen [address] [place] [address] CHIEF COMPLAINT: Slow VT HISTORY OF PRESENT ILLNESS: Ms. Daniel is a 66 year old year old FEMALE with a history of HCM, DCICD, persistent AT/AF, mechanical MVR, slow VT who presents for follow-up visit regarding AT/AF, slow VT and recent pacemaker adjustment. Her history, particularly of late, is very complicated. She has undergone two ablations in the pastfor Afib/left sided dinorah-mitral flutters. She previously could not tolerate sotalol. She recently started having recurrences of atypical AFL/AT and dofetilide was tried and it was ineffective. She was started on amiodarone and concomitantly presented with a GI bleed requiring hospitalization and transfusion. She returned to sinus/ A pacing on amiodarone but continued to feel unwell with heart failure symptoms. It was also noted on ECGs that she did not have consistent AV synchrony and after adjusting atrial sensitivity this resolved. We also stopped amiodarone. She noticed to she started feeling much better in the past few days. She also was noted to have slow VT (below detection) on her device recently which spontaneously resolved. She felt short of breath when we called her but not particularly different from other days around that time. RV pacing as gone up to 76%, EF is 46%. PAST MEDICAL HISTORY Diagnosis Date Atrial fibrillation (HCC) Chronic gastric ulcer GERD (gastroesophageal reflux disease) H/O mitral valve replacement mechanical valve H/O myomectomy cardiac HOCM (hypertrophic obstructive cardiomyopathy) (HCC) HTN (hypertension) Hypertrophic cardiomyopathy (HCC) ICD (implantable cardioverter-defibrillator) in place Palpitations Tachycardia TIA (transient ischemic attack) history of V tach (HCC) PAST SURGICAL HISTORY Procedure Laterality Date AICD, DUAL CHAMBER 2007 EGD BIOPSY SING OR MULT 10/03/2021 2 gastric ulcers; atrophic fundus of stomach HYSTERECTOMY HX KRUGER W/O FACETEC FORAMOT/DSC 09/14 VRT SGM CRV 1995 DISCECTOMY. Laminectomy, cervical STAB PHLEBECTOMY VARICOSE VEINS >20 Social History Tobacco Use Smoking status: Former Smoker Packs/day: 1.00 Years: 10.00 Pack years: 10.00 Types: Cigarettes Quit date: 05/01/1983 Years since quittin.6 Smokeless tobacco: Never Used Vaping Use Vaping Use: Never used Substance Use Topics Alcohol use: Yes Comment: Rare Drug use: Never FAMILY HISTORY Problem Relation Age of Onset Alzheimer's Disease Mother Stroke Mother Alcohol/Drug Father ALCOHOL Heart Father ?CAROTID. Breast Cancer Maternal Grandmother ALLERGIES No Known Allergies Current Outpatient Medications Medication Sig warfarin (COUMADIN) 5 mg tablet 5 mg Wed/Wed/Wed, none all other days or as directed metoprolol succinate ER (TOPROL XL) 100 mg Take 1 tablet by mouth once daily. (Patient taking differently: Take 100 mg by mouth once daily. Taking 0.5 tablet twice a day ) methIMAzole (TAPAZOLE) 5 mg tablet Take 1 tablet by mouth once daily. furosemide (LASIX) 40 mg tablet Take 1 tablet by mouth twice daily. potassium chloride (K-TAB) 10 mEq tablet Take 1 tablet by mouth daily with breakfast. pantoprazole DR (PROTONIX) 40 mg tablet Take 1 tablet by mouth once daily. multivitamin tablet Take 1 tablet by mouth once daily. mexiletine (MEXITIL) 150 mg capsule Take 1 capsule by mouth three times daily. aspirin 81 mg chewable tablet Take 81 mg by mouth once daily. (Patient not taking: Reported on 12/23/2021 ) Xxcmheo-Ara-Fof P3-I6-Myjeorjb (CALCIUM CITRATE + D WITH MAG) 842-80-9-125 ps-uo-of-unit tab Take 1tablet by mouth once daily. (Patient not taking: Reported on 12/23/2021 ) Cholecalciferol, Vitamin D3, 5,000 unit tab Take 1 tablet by mouth once daily. (Patient not taking:Reported on 12/23/2021 ) Current Facility-Administered Medications Medication Dose Route Frequency perflutren lipid microspheres 1.3 mL in NaCl (PF) 0.9% 10 mL injection (DEFINITY) INTRAVENOUS DIRECTED PRN sodium chloride 0.9 % (flush) 10 mL (BD POSIFLUSH) 10 mL INTRAVENOUS DIRECTED PRN perflutren lipid microspheres 1.3 mL in NaCl (PF) 0.9% 10 mL injection (DEFINITY) INTRAVENOUS DIRECTED PRN sodium chloride 0.9 % (flush) 10 mL (BD POSIFLUSH) 10 mL INTRAVENOUS DIRECTED PRN perflutren lipid microspheres 1.3 mL in NaCl (PF) 0.9% 10 mL injection (DEFINITY) INTRAVENOUS DIRECTED PRN sodium chloride 0.9 % (flush) 10 mL (BD POSIFLUSH) 10 mL INTRAVENOUS DIRECTED PRN REVIEW OF SYSTEMS: A complete review of systems was obtained from the patient and there is nothing pertinent other than what is mentioned in the HPI. PHYSICAL EXAMINATION: BP 104/60 Pulse 73 Ht 165.1 cm (5' 5) Wt 67.1 kg (148 lb) BMI 24.63 kg/m GENERAL: No acute distress, speaking comfortably in full sentences HENT: Normocephalic, atraumatic EYES: Extraocular movements intact NECK: Full range of motion PULMONARY:Normal respiratory effort, clear to auscultation bilaterally CARDIAC: Regular rate and rhythm, no murmurs, rubs or gallops. No cyanosis, clubbing or edema. ABDOMEN: Soft, non-tender and non-distended SKIN: Warm, dry, normal turgor, no pallor NEURO: Alert and oriented PSYCH: Appropriate mood and affect CARDIOVASCULAR MEDICINE TESTING: I have independently reviewed the following studies and my interpretation is as follows: ECG today shows AP-PROCUREMENT CONSULTANT rhythm Device interrogation 12/07/21: DUAL CHAMBER ICD REMOTE EVALUATION: PRESENTING EGM: AP/PROCUREMENT CONSULTANT rhythm with frequent PVCs and couplets. BATTERY STATUS: Estimated time remaining to ISIDRO is 2.5 years. COUNTERS SINCE 11/26/21: ATRIAL ARRHYTHMIAS: There have been no triggered episodes of atrial high rates. VENTRICULAR ARRHYTHMIAS: There have been no ventricular detections. LEAD MEASUREMENTS: RV sensing is appropriate. Review of the lead impedance trends are normal. OTHER DIAGNOSTICS: Total RV pacing 76%. FOLLOW UP: Continue 3 month remote transmissions and yearly in-clinic interrogations. Brisa Singh RN NOTE TO PROVIDERS: CARD Flowsheets contain detailed device programming and testing data. Paceart/Interrogation PDF can be found under CARDIAC DATA AND REPORT, Scanned Documents section. Oneyda Guy MD December 12, 2021 10:06 AM ADDITIONAL TESTING TSH Date Value Ref Range Status 12/09/2021 5.380 (H) 0.270 - 4.200 mIU/L Final Hemoglobin (g/dL) Date Value 10/30/2021 9.2 Hematocrit (%) Date Value 10/30/2021 30.0 WBC (k/uL) Date Value 10/30/2021 6.30 Platelet Count (k/uL) Date Value 10/30/2021 293 BMP Latest Ref Rng & Units 10/30/2021 10/07/2021 10/06/2021 GLUCOSE 74 - 99 mg/dL 108(H) 100(H) 115(H) BUN 7 - 21 mg/dL 25(H) 21 18 CREATININE 0.58 - 0.96 mg/dL 1.51(H) 1.24(H) 1.24(H) SODIUM 136 - 144 mmol/L 137 138 144 POTASSIUM 3.7 - 5.1 mmol/L 3.4(L) 4.2 4.7 CHLORIDE 97 - 105 mmol/L 103 106(H) 110(H) CO2 22 - 30 mmol/L 21(L) 23 21(L) ANION GAP 9 - 18 mmol/L 13 9 13 CALCIUM, TOTAL 8.5 - 10.2 mg/dL 8.9 9.0 9.2 eGFR . 34 43 43 EGFR- - 42 52 52 EGFR-ALL OTHER RACES . 34 43 43 IMPRESSION: Ms. Daniel is a 66 year old year old FEMALE with a history of HCM, DCICD, persistent AT/AF, mechanical MVR, slow VT who presents for follow-up visit regarding AT/AF, slow VT and recent pacemaker adjustment. PLAN AND RECOMMENDATIONS: NICM, AV block and frequent pacing I think NEEDLE LOOM SETTER upgrade is reasonable here for symptomatic improvement given high burden of pacing and sub-normal EF, both of which are consistent and despite guideline driven therapy (was on lisinopril until recently as well). She is amenable to proceeding. VT Was under detection and she is undergoing amiodarone washout which would explain the slower rate Start mexilitine 150mg twice daily for now AT/AF Currently maintaining NSR Could not tolerate amiodarone, dofetilide was ineffective Could revisit sotalol in the future if needed or ablation if appropriate though this would be her third of complex left atrial arrhythmias in patient with mechanical valve and worsening HF symptoms. At present I think she is high risk but this may improve after NEEDLE LOOM SETTER CONTACT INFORMATION: Oneyda Guy MD, [facility] Physician Non Invasive Cardiologist of Arrhythmia & Cardiac Device Monitoring, [facility] [employer], [facility] Department of Cardiovascular Medicine Cardiac Electrophysiology and Pacing Section [address] [place], [place] [address] (p): [phone] (f): [phone] * Liset Moore RN - 12/23/2021 2:45 PM EDT SCREENING- SAWYER VS. NOAC STUDIES INCLUSION CRITERIA Documented paroxysmal, persistent, or permanent non-valvular atrial fibrillation: Yes Age >or=18: Yes Primary indication for anticoagulation is AF: Yes CHADS VASC > or = 3 in males, 3 in females: Yes Able to give informed consent: Yes EXCLUSION CRITERIA Involved in another investigational study: No On clopidogrel, ticlodipine, ticagrelor, pasugrel or cangrelor: No Any cardiac or non-cardiac intervention 30 days before or 60 days after: No In last 30 days no CVA, TIA, Major bleed (any site), NH: No LVEF <30%: No Mechanical valve: No Patient meets criteria Liset Moore RN documented in this encounterTr[facility]04-11-2022 Miscellaneous Notes* Telephone Encounter - Vilma Crespo Ma - 12/22/2021 2:54 PM EDT Pt notified and voiced understanding. Tracker and med list updated. Vilma Crespo Ma * Telephone Encounter - Yordy Allen MD - 12/22/2021 2:51 PM EDT Go to 5 mg Mon, Weds, Fri; none on other days Recheck in 2 weeks Yordy Allen MD * Telephone Encounter - Celsa Jacobs Ma - 12/22/2021 8:28 AM EDT Last INR: INR 3.4 12/20/2021 Current dose of coumadin is: 5 mg MWF, Sat and 0 mg all other days. Last date of dose change: 12/08/21. Previous INR (date and result): 3.3 on 12/07/21 Additional Clinical Information or narrative: yes: Notify pt of INR changes via mychart Celsa Jacobs Ma documented in this encounterTrumbull [facility]04-01-2022 Miscellaneous Notes* Telephone Encounter - Rena Solis - 12/19/2021 2:47 PM EDT Patient rescheduled 02/06 * Telephone Encounter - Rena Solis - 12/19/2021 11:51 AM EDT Scheduled 01/16 * Telephone Encounter - Rena Davis Pss - 12/19/2021 11:40 AM EDT Patient called rescheduled procedure EGD at with Dr islas 01/16. Dr Islas was sent secure chat to place new order,other . documented in this encounterTrumbull [facility] Hospital03-31-2022 Miscellaneous Notes* Telephone Encounter - Oneyda Guy MD - 12/11/2021 4:06 PM EDT Called patient Slow VT noted but no symptoms associated with this. She has fluid retention and chest tightness butstates they are unchanged/chronic and she does not want to go to the ED. She has stopped amiodaronedue to weakness She has previously failed sotalol due to side effects of fatigue and weakness. She has an appointment next week - May need to consider Ranexa or mexiletine Oneyda Guy MD * Telephone Encounter - Radha Rueda RN - 12/08/2021 12:53 PM EDT Patient sent transmission yesterday and noted that no ventricular arrhythmia detections noted. Radha Rueda RN * Telephone Encounter - Bozena Figueroa RN - 12/07/2021 9:33 AM EDT Left vm to discuss remote transmission showing VT below detection. Requested that she send another remote if she feels ok. Otherwise, go to the ED. I left a vm with the daughter too documented in this encounterTrumbull [facility] Hospital01-25-2022 [facility] 10-07-2021 NoteHNO ID: [id number] Author: TERRANCE TUBBS Service: Respiratory Therapy Author Type: Registered Resp Therapist Type: Progress Notes Filed: 10/07/2021 3:48 PM Note Text: PULM FUNCTION SMARTBLOCK: Provider: Wen Valdivia MD Oximetry - Ambulation: [address] [place], [place] [address]01-25-2022 [facility] 10-06-2021 [facility]01-23-2022 [facility]01-23-2022 [facility]01-22-2022 [facility]01-22-2022 [facility]01-22-2022 [facility]01-22-2022 [facility] 10-03-2021 [facility]01-20-2022 [facility]01-20-2022 [facility]01-04-2022 [facility]01-04-2022 NoteHNO ID: [id number] Author: TERRANCE TUBBS Service: Respiratory Therapy Author Type: Registered Resp Therapist Type: Progress Notes Filed: 09/16/2021 12:25 PM Note Text: PULM FUNCTION SMARTBLOCK: Provider: Becky Kaplan MD Oximetry - Ambulation: [address] [place], [place] [address]01-04-2022 [facility] 09-15-2021 [facility]01-02-2022 History of Past illness Narrative* Problem Noted Date Resolved Date COVID 09/14/2021 09/17/2021 documented as of this encounter (statuses as of 12/10/2021) [facility] illness Narrative* Problem Noted Date Resolved Date COVID 09/14/2021 09/17/2021 documented as of this encounter (statuses as of 12/11/2021) [facility] illness Narrative* Problem Noted Date Resolved Date COVID 09/14/2021 09/17/2021 documented as of this encounter (statuses as of 12/19/2021) [facility] illness Narrative* Problem Noted Date Resolved Date COVID 09/14/2021 09/17/2021 documented as of this encounter (statuses as of 12/22/2021) [facility] illness Narrative* Problem Noted Date Resolved Date COVID 09/14/2021 09/17/2021 documented as of this encounter (statuses as of 12/24/2021) [address]02-[address]22 History of Past illness Narrative* Problem Noted Date Resolved Date COVID 09/14/2021 09/17/2021 documented as of this encounter (statuses as of 12/24/2021) [address]02-[address]22 History of Past illness Narrative* Problem Noted Date Resolved Date COVID 09/14/2021 09/17/2021 documented as of this encounter (statuses as of 01/07/2022) [address]02-[address]22 History of Past illness Narrative* Problem Noted Date Resolved Date COVID 09/14/2021 09/17/2021 documented as of this encounter (statuses as of 01/14/2022) [facility] Narrative* Problem Noted Date Resolved Date COVID 09/14/2021 09/17/2021 documented as of this encounter (statuses as of 01/15/2022) [address]02[address]22 History of Past illness Narrative* Problem Noted Date Resolved Date COVID 09/14/2021 09/17/2021 documented as of this encounter (statuses as of 01/19/2022) [facility] Narrative* Problem Noted Date Resolved Date COVID 09/14/2021 09/17/2021 documented as of this encounter (statuses as of 01/19/2022) [address]02[address]22 History of Past illness Narrative* Problem Noted Date Resolved Date COVID 09/14/2021 09/17/2021 documented as of this encounter (statuses as of 01/19/2022) [address]02[address]22 History of Past illness Narrative* Problem Noted Date Resolved Date COVID 09/14/2021 09/17/2021 documented as of this encounter (statuses as of 01/20/2022) [address]22 History of Past illness Narrative* Problem Noted Date Resolved Date COVID 09/14/2021 09/17/2021 documented as of this encounter (statuses as of 02/02/2022) [address]02[address]22 History of Past illness Narrative* Problem Noted Date Resolved Date COVID 09/14/2021 09/17/2021 documented as of this encounter (statuses as of 02/11/2022) [address]22 History of Past illness Narrative* Problem Noted Date Resolved Date COVID 09/14/2021 09/17/2021 documented as of this encounter (statuses as of 02/11/2022) [address]22 History of Past illness Narrative* Problem Noted Date Resolved Date COVID 09/14/2021 09/17/2021 documented as of this encounter (statuses as of 02/17/2022) [facility] N[facility]* Problem Noted Date Resolved Date COVID 09/14/2021 09/17/2021 documented as of this encounter (statuses as of 02/24/2022) [address]22 History of Past illness Narrative* Problem Noted Date Resolved Date COVID 09/14/2021 09/17/2021 documented as of this encounter (statuses as of 03/05/2022) [address]22 History of Past illness Narrative* Problem Noted Date Resolved Date COVID 09/14/2021 09/17/2021 documented as of this encounter (statuses as of 03/23/2022) [facility] Narr[facility]* Problem Noted Date Resolved Date COVID 09/14/2021 09/17/2021 documented as of this encounter (statuses as of 03/30/2022) [address]22 History of Past illness Narrative* Problem Noted Date Resolved Date COVID 09/14/2021 09/17/2021 documented as of this encounter (statuses as of 04/09/2022) [address]22 History of Past illness Narrative* Problem Noted Date Resolved Date COVID 09/14/2021 09/17/2021 documented as of this encounter (statuses as of 04/15/2022) [address]22 History of Past illness Narrative* Problem Noted Date Resolved Date COVID 09/14/2021 09/17/2021 documented as of this encounter (statuses as of 05/16/2022) [address]22 History of Past illness Narrative* Problem Noted Date Resolved Date COVID 09/14/2021 09/17/2021 documented as of this encounter (statuses as of 05/21/2022) [facility] Narr[facility]* Problem Noted Date Resolved Date COVID 09/14/2021 09/17/2021 documented as of this encounter (statuses as of 05/26/2022) [address]22 History of Past illness Narrative* Problem Noted Date Resolved Date COVID 09/14/2021 09/17/2021 documented as of this encounter (statuses as of 05/30/2022) [facility] Narr[facility]* Problem Noted Date Resolved Date COVID 09/14/2021 09/17/2021 documented as of this encounter (statuses as of 06/01/2022) [facility] N[facility]* Problem Noted Date Resolved Date COVID 09/14/2021 09/17/2021 documented as of this encounter (statuses as of 06/02/2022) [facility] N[facility]* Problem Noted Date Resolved Date COVID 09/14/2021 09/17/2021 documented as of this encounter (statuses as of 06/03/2022) [facility] N[facility]* Problem Noted Date Resolved Date COVID 09/14/2021 09/17/2021 documented as of this encounter (statuses as of 06/08/2022) [address]22 History of Past illness Narrative* Problem Noted Date Resolved Date COVID 09/14/2021 09/17/2021 documented as of this encounter (statuses as of 06/09/2022) [address]02[address]22 History of Past illness Narrative* Problem Noted Date Resolved Date COVID 09/14/2021 09/17/2021 documented as of this encounter (statuses as of 06/15/2022) [address]02[address]22 History of Past illness Narrative* Problem Noted Date Resolved Date COVID 09/14/2021 09/17/2021 documented as of this encounter (statuses as of 06/22/2022) [address]02-[address]22 History of Past illness Narrative* Problem Noted Date Resolved Date COVID 09/14/2021 09/17/2021 documented as of this encounter (statuses as of 06/29/2022) [address]02-[address]22 History of Past illness Narrative* Problem Noted Date Resolved Date COVID 09/14/2021 09/17/2021 documented as of this encounter (statuses as of 07/10/2022) [address]02[address]22 History of Past illness Narrative* Problem Noted Date Resolved Date COVID 09/14/2021 09/17/2021 documented as of this encounter (statuses as of 07/14/2022) [facility]* Problem Noted Date Resolved Date COVID 09/14/2021 09/17/2021 documented as of this encounter (statuses as of 07/22/2022) [address]02[address]22 History of Past illness Narrative* Problem Noted Date Resolved Date COVID 09/14/2021 09/17/2021 documented as of this encounter (statuses as of 07/28/2022) [facility] Narr[facility]* Problem Noted Date Resolved Date COVID 09/14/2021 09/17/2021 documented as of this encounter (statuses as of 07/28/2022) [address]22 History of Past illness Narrative* Problem Noted Date Resolved Date COVID 09/14/2021 09/17/2021 documented as of this encounter (statuses as of 08/05/2022) [address]02-[address]22 History of Past illness Narrative* Problem Noted Date Resolved Date COVID 09/14/2021 09/17/2021 documented as of this encounter (statuses as of 08/17/2022) [address]02-[address]22 History of Past illness Narrative* Problem Noted Date Resolved Date COVID 09/14/2021 09/17/2021 documented as of this encounter (statuses as of 08/24/2022) [address]02[address]22 History of Past illness Narrative* Problem Noted Date Resolved Date COVID 09/14/2021 09/17/2021 documented as of this encounter (statuses as of 09/04/2022) [address]02-[address]22 History of Past illness Narrative* Problem Noted Date Resolved Date COVID 09/14/2021 09/17/2021 documented as of this encounter (statuses as of 09/05/2022) [address]02[address]22 History of Past illness Narrative* Problem Noted Date Resolved Date COVID 09/14/2021 09/17/2021 documented as of this encounter (statuses as of 09/14/2022) [address]02[address]22 History of Past illness Narrative* Problem Noted Date Resolved Date COVID 09/14/2021 09/17/2021 documented as of this encounter (statuses as of 09/14/2022) [facility] Narr[facility]* Problem Noted Date Resolved Date COVID 09/14/2021 09/17/2021 documented as of this encounter (statuses as of 09/16/2022) [facility] Narrative* Problem Noted Date Resolved Date COVID 09/14/2021 09/17/2021 documented as of this encounter (statuses as of 09/17/2022) [facility] Narrative* Problem Noted Date Resolved Date COVID 09/14/2021 09/17/2021 documented as of this encounter (statuses as of 09/17/2022) [facility] illness Narrative* Problem Noted Date Resolved Date COVID 09/14/2021 09/17/2021 documented as of this encounter (statuses as of 09/18/2022) [address]02-2022 History of Past illness Narrative* Problem Noted Date Resolved Date COVID 09/14/2021 09/17/2021 documented as of this encounter (statuses as of 09/19/2022) [facility]01-02-2022 History of Past illness Narrative* Problem Noted Date Resolved Date COVID 09/14/2021 09/17/2021 documented as of this encounter (statuses as of 09/22/2022) [address]02-2022 History of Past illness Narrative* Problem Noted Date Resolved Date COVID 09/14/2021 09/17/2021 documented as of this encounter (statuses as of 09/29/2022) [address]02-2022 History of Past illness Narrative* Problem Noted Date Resolved Date COVID 09/14/2021 09/17/2021 documented as of this encounter (statuses as of 10/09/2022) [address]02-2022 History of Past illness Narrative* Problem Noted Date Resolved Date COVID 09/14/2021 09/17/2021 documented as of this encounter (statuses as of 10/12/2022) [address]02-2022 History of Past illness Narrative* Problem Noted Date Resolved Date COVID 09/14/2021 09/17/2021 documented as of this encounter (statuses as of 10/13/2022) [address]02-2022 History of Past illness Narrative* Problem Noted Date Resolved Date COVID 09/14/2021 09/17/2021 documented as of this encounter (statuses as of 10/15/2022) [address]02-2022 History of Past illness Narrative* Problem Noted Date Resolved Date COVID 09/14/2021 09/17/2021 documented as of this encounter (statuses as of 11/09/2022) [address]-2022 History of Past illness Narrative* Problem Noted Date Resolved Date COVID 09/14/2021 09/17/2021 documented as of this encounter (statuses as of 11/17/2022) [address]02-2022 History of Past illness Narrative* Problem Noted Date Resolved Date COVID 09/14/2021 09/17/2021 documented as of this encounter (statuses as of 11/18/2022) [address]02-2022 History of Past illness Narrative* Problem Noted Date Resolved Date COVID 09/14/2021 09/17/2021 documented as of this encounter (statuses as of 11/18/2022) [address]02-2022 History of Past illness Narrative* Problem Noted Date Resolved Date COVID 09/14/2021 09/17/2021 documented as of this encounter (statuses as of 12/08/2022) [address]02-2022 History of Past illness Narrative* Problem Noted Date Resolved Date COVID 09/14/2021 09/17/2021 documented as of this encounter (statuses as of 12/10/2022) [address]02-2022 History of Past illness Narrative* Problem Noted Date Resolved Date COVID 09/14/2021 09/17/2021 documented as of this encounter (statuses as of 12/10/2022) [address]02-2022 History of Past illness Narrative* Problem Noted Date Resolved Date COVID 09/14/2021 09/17/2021 documented as of this encounter (statuses as of 12/16/2022) [address]-2022 History of Past illness Narrative* Problem Noted Date Resolved Date COVID 09/14/2021 09/17/2021 documented as of this encounter (statuses as of 12/16/2022) [address]02-2022 History of Past illness Narrative* Problem Noted Date Resolved Date COVID 09/14/2021 09/17/2021 documented as of this encounter (statuses as of 12/21/2022) [address]02-2022 History of Past illness Narrative* Problem Noted Date Resolved Date COVID 09/14/2021 09/17/2021 documented as of this encounter (statuses as of 01/07/2023) [facility]01-02-2022 History of Past illness Narrative* Problem Noted Date Resolved Date COVID 09/14/2021 09/17/2021 documented as of this encounter (statuses as of 01/15/2023) [address]02-2022 History of Past illness Narrative* Problem Noted Date Resolved Date COVID 09/14/2021 09/17/2021 documented as of this encounter (statuses as of 01/19/2023) [address]02-2022 History of Past illness Narrative* Problem Noted Date Resolved Date COVID 09/14/2021 09/17/2021 documented as of this encounter (statuses as of 02/11/2023) [address]02-2022 History of Past illness Narrative* Problem Noted Date Resolved Date COVID 09/14/2021 09/17/2021 documented as of this encounter (statuses as of 02/17/2023) [address]02-2022 History of Past illness Narrative* Problem Noted Date Resolved Date COVID 09/14/2021 09/17/2021 documented as of this encounter (statuses as of 03/05/2023) [facility]01-02-2022 History of Past illness Narrative* Problem Noted Date Diagnosed Date Resolved Date COVID 09/14/2021 09/17/2021 documented as of this encounter (statuses as of 03/23/2023) [facility]01-02-2022 History of Past illness Narrative* Problem Noted Date Diagnosed Date Resolved Date COVID 09/14/2021 09/17/2021 documented as of this encounter (statuses as of 03/29/2023) [facility]01-02-2022 History of Past illness Narrative* Problem Noted Date Diagnosed Date Resolved Date COVID 09/14/2021 09/17/2021 documented as of this encounter (statuses as of 08/09/2023) [facility]01-02-2022 History of Past illness Narrative* Problem Noted Date Diagnosed Date Resolved Date COVID 09/14/2021 09/17/2021 documented as of this encounter (statuses as of 11/12/2023) [facility]01-02-2022 [facility]07-13-2021 NoteHNO ID: [id number] Author: Mitzi Varela MD Service: ? Author Type: Physician Type: Progress Notes Filed: 03/25/2021 2:52 PM Note Text: HISTORY OF PRESENT ILLNESS: Ms. Daniel is a delightful 65-year-old woman who visits us at the cardiology clinic for a follow-up appointment. She has an established history of hypertrophic cardiomyopathy, treated with surgical septal myectomy and mitral valve replacement with a mechanical mitral valve. Other sequela of hypertrophic cardiomyopathy include atrial fibrillation, treated with catheter ablation. She is currently on anticoagulation for stroke prevention in atrial fibrillation with an oral vitamin K antagonist, warfarin. She denies symptoms of chest pain, dyspnea, exertional intolerance, nausea, diaphoresis, dizziness, lightheadedness or syncope. ? Her past medical history is as mentioned below, and is also relevant for hyperthyroidism on methimazole. PAST MEDICAL HISTORY Diagnosis Date - Atrial fibrillation (HCC) - GERD (gastroesophageal reflux disease) - H/O mitral valve replacement mechanical valve - H/O myomectomy cardiac - HOCM (hypertrophic obstructive cardiomyopathy) (HCC) - HTN (hypertension) - Hypertrophic cardiomyopathy (HCC) - ICD (implantable cardioverter-defibrillator) in place - Palpitations - Tachycardia - TIA (transient ischemic attack) history of - V tach (HCC) PAST SURGICAL HISTORY Procedure Laterality Date - AICD, DUAL CHAMBER 2008 - HYSTERECTOMY HX - LAMINECTOMY,CERVICAL 1996 DISCECTOMY. Laminectomy, cervical - STAB PHLEBECTOMY VARICOSE VEINS >20 SOCIAL HISTORY Social History Tobacco Use - Smoking status: Former Smoker Packs/day: 1.00 Years: 10.00 Pack years: 10.00 Types: Cigarettes Quit date: 05/01/1983 Years since quittin.9 - Smokeless tobacco: Never Used Vaping Use - Vaping Use: Never used Substance Use Topics - Alcohol use: Yes Comment: Rare - Drug use: Never FAMILY HISTORY Problem Relation Age of Onset - Breast Cancer Maternal Grandmother - Alzheimer's Disease Mother - Stroke Mother - Alcohol/Drug Father ALCOHOL - Heart Father ?CAROTID. ALLERGIES: ALLERGIES No Known Allergies MEDICATIONS: furosemide (LASIX) 40 mg tablet Take 1 tablet by mouth once daily. warfarin (COUMADIN) 5 mg tablet 7.5 mg Mon and 5 mg all other days or as directed potassium chloride (K-TAB) 10 mEq tablet Take 1 tablet by mouth daily with breakfast. methIMAzole (TAPAZOLE) 5 mg tablet Take 0.5 tablets by mouth once daily. budesonide, enteric coated (ENTOCORT EC) 3 mg 24 hr capsule Take 3 capsules by mouth once daily. dofetilide (TIKOSYN) 250 mcg capsule Take 1 capsule by mouth twice daily. metoprolol tartrate, short acting, (LOPRESSOR) 100 mg tablet Take 1 tablet by mouth twice daily. lisinopril 2.5 mg tablet Take 1 tablet by mouth once daily. aspirin 81 mg chewable tablet Take 81 mg by mouth once daily. multivitamin tablet Take 1 tablet by mouth once daily. Yjnqyom-Cjm-Qem I0-Q4-Sfnjdpgb (CALCIUM CITRATE + D WITH MAG) 799-67-8-125 jm-au-gv-unit tab Take 1 tablet by mouth once daily. Cholecalciferol, Vitamin D3, 5,000 unit tab Take 1 tablet by mouth once daily. POTASSIUM-99 ORAL Take 1 tablet by mouth once daily. REVIEW OF SYSTEMS: A 14-point review of systems, other than those mentioned in the History of Present Illness, is unremarkable. PHYSICAL EXAMINATION: BP 118/70 Pulse 80 Resp 16 Ht 5' 5 (1.65m) Wt 147 lb (66.7kg) SpO2 98% BMI 24.46 kg/(m2). Constitutional: Sitting up comfortably in chair; in no apparent distress. HEENT: Normocephalic, atraumatic. Eyes: Pupils are equally round and reactive to light (PERRL), anicteric. Neck: Supple, no thyromegaly, normal jugular venous pressure. Respiratory: Bilateral air entry equal, no crackles. Cardiac: Normal S1, S2, audible click of the mechanical mitral valve. Abdomen: Soft, non-distended, non-tender. Extremities: Warm, well-perfused, no peripheral edema present. Neurological: Oriented to time, place and person, non-focal. Psychological: Normal affect. CARDIOVASCULAR MEDICINE TESTING: Electrocardiogram: Electronic ventricular pacemaker. Device check (11/17/2020): Dual chamber implantable cardiac defibrillator; normal battery with no significant depletion, longevity remaining = 3.5 years, onset of atrial fibrillation (at 9 AM on 11/17/2020), one episode of non-sustained ventricular dysrhythmia (electrocardiogram interpretation: atrial fibrillation with rapid ventricular response), appropriate sensing, ventricular pacing 17%. IMPRESSION: Ms. Daniel an established history of hypertrophic cardiomyopathy, treated with surgical septal myectomy and mitral valve replacement with a mechanical mitral valve. Other sequela of hypertrophic cardiomyopathy include atrial fibrillation, treated with catheter ablation. PLAN AND RECOMMENDATIONS: 1. Continue therapeutic warfarin (internation (more content not included)... [facility] Note Date/Time January 26, 2025 1:53p m [place] Medical Records Department [address] [place] [address] Counseling Note - Pharmacy 01/26/25 1352 MR#: [id number] Acct: [id number] Name: EM DANIEL Rep #:[id number] : 1955 69 From: Curtis Hudson PCP: Dr. Roseline Barakat MD Status:ADM MARIE Y Location: [place] [address] Pharmacy [place] Med Reconciliation Pharmacy Service has performed discharge medication reconciliation for this patient. The patient's discharge medication list was reviewed for discrepancies and discrepancies were resolved. Medications at Discharge Home Medications aspirin 81 mg chewable tablet (Rahul Chewable Low Dose Aspirin) 81 mg PO DAILY heart health 07/08/22 spacer #1 ea 11/26/22 warfarin 1 mg tablet 1 mg PO .COMPLEX blood thinner 12/03/22 metoprolol succinate 50 mg tablet,extended release 24 hr (Toprol XL) 50 mg PO QDAY blood pressure #180 tabs 05/22/24 spironolactone 25 mg tablet 25 mg PO DAILY diuretic #90 tabs 12/12/24 warfarin 5 mg tablet 5 mg PO DAILY blood thinner #100 tabs 01/04/25 albuterol sulfate 90 mcg/actuation aerosol inhaler 2 puff inhalation Q4H PRN shortness of breath or wheezing #8.5 grams 01/09/25 budesonide-formoterol HFA 160 mcg-4.5 mcg/actuation aerosol inhaler (Symbicort) 2 inh inhalation BID #1 ea 01/09/25 dapagliflozin propanediol 10 mg tablet (Farxiga) 10 mg PO DAILY diabetes #90 tabs 01/22/25 torsemide 20 mg tablet 20 mg PO DAILY #180 tabs 01/26/25 01/26/25 1353 <Electronically signed by Curtis garcia> Date _ Curits [place] Signature (if applicable): Date CC: ~ Signed [facility] Work Phone: Discharge summary Author Yordy Warren [facility] Note Date/Time January 26, 2025 12:44 pm [facility] Medical Records Department [address] [place] [address] Instructions for Home/Discharge Instructions 01/26/25 1230 MR#: [id number] Acct: [id number] Name: EM DANIEL Rep #:[id number] : 1955 69 From: Yordy Warren DO PCP: Dr. Roseline Barakat MD Status:ADM MARIE Discharge Instructions Diet Discharge Diet: No restrictions DC O2, CPAP, BIPAP needs Home O2 Discharge instructions: No Dressing / Incision Discharge Activity: Return to Normal Activity Weight Bearing Status: Full weight bearing Follow Up Care Test Results: Test results from this visit will be discussed in further detail at your follow- up appointment, if applicable. Discharge Plan Admission Admit Date/Time: 01/25/25 13:44 Primary Reason for Your Visit: Transient weakness-etiology unclear, doubt TIA Attending Provider: Yordy Warren Primary Care Provider: Roseline Barakat Consulting Providers: Edu Fletcher; Concepcion Rosenberg; Mel Ochoa; Ele Matthews; Jenelle Henson; Ian Smith; Jaylin Mchugh; Delvis Latham; Julia Vázquez; Joshua Brito; Lelo Zurita; Monty Mcgrath; Yanique Goins; Sy Heath; Keke Underwood; Jose Collins; Angelica Escobar; Trino Lind; Lauren Falcon; Jourdan Brice;Renée Fields Discharge Orders/Prescriptions Prescriptions: Continued aspirin [Rahul Chewable Aspirin] 81 mg tablet,chewable 81 mg PO DAILY warfarin 1 mg tablet 1 mg PO .COMPLEX Protocol: Dose Management Condition: Wednesday Dose/Route: 5 mg Instruction: 1 x 5 mg tablet Condition: Wednesday Dose/Route: 5 mg Instruction: 1 x 5 mg tablet Condition: Wednesday Dose/Route: 2.5 mg Instruction: 0.5 x 5 mg tablets Condition: Wednesday Dose/Route: 5 mg Instruction: 1 x 5 mg tablet Condition: Dose/Route: 2.5 mg Instruction: 0.5 x 5 mg tablets Condition: Wednesday Dose/Route: 5 mg Instruction: 1 x 5 mg tablet Condition: Wednesday Dose/Route: 5 mg Instruction: 1 x 5 mg tablet Protocol Text: Adjustment Start Date: Wednesday12/05/24 INR Value: 4.0 INR Date: 10/30/24 Recheck Date: 12/19/24 Rx Instructions: 1 mg orally as directed for dose changes; Managed by PCP spironolactone 25 mg tablet 25 mg PO DAILY Qty: 90 3RF Rx Instructions: Hold for serum potassium more than 5.0 albuterol sulfate 90 mcg/actuation HFA aerosol inhaler 2 puff inhalation Q4H PRN (Reason: shortness of breath or wheezing) Qty: 8.5 11RF budesonide-formoterol [Symbicort] 160-4.5 mcg/actuation HFA aerosol inhaler 2 inh inhalation BID Qty: 1 11RF Rx Instructions: administer with spacer, rinse mouth after each use (DME) spacer See Rx Instructions .ROUTE .MEDSUPPLY Qty: 1 0RF Rx Instructions: As directed metoprolol succinate [Toprol XL] 50 mg tablet extended release 24 hr 50 mg PO QDAY Qty: 180 3RF warfarin 5 mg tablet 5 mg PO DAILY Qty: 100 3RF Protocol: Dose Management Condition: Wednesday Dose/Route: 5 mg Instruction: 1 x 5 mg tablet Condition: Wednesday Dose/Route: 5 mg Instruction: 1 x 5 mg tablet Condition: Wednesday Dose/Route: 2.5 mg Instruction: 0.5 x 5 mg tablets Condition: Wednesday Dose/Route: 5 mg Instruction: 1 x 5 mg tablet Condition: Dose/Route: 2.5 mg Instruction: 0.5 x 5 mg tablets Condition: Wednesday Dose/Route: 5 mg Instruction: 1 x 5 mg tablet Condition: Wednesday Dose/Route: 5 mg Instruction: 1 x 5 mg tablet Protocol Text: Adjustment Start Date: Wednesday12/05/24 INR Value: 4.0 INR Date: 10/30/24 Recheck Date: 12/19/24 Patient Comments: daughter states takes 5mg daily and occasionally gets bumped up to 7.5mg but not often Rx Instructions: Take 1 tab (5mg) Sun/Wed/Wed/Wed/Sat and 0.5 tab (2.5mg) /.; or use as directed Farxiga 10 mg tablet 10 mg PO DAILY Qty: 90 3RF Changed torsemide 20 mg tablet 20 mg PO DAILY Qty: 180 3RF Referrals / Follow Up: Roseline Barakat MD [Primary Care Provider] - (As scheduled) Disposition Disposition (needs filled in before D/C Order can be placed): Home, Self Care 01/26/25 6634<Electronically signed by Yordy Warren DO>Yordy Warren DO CC: Ele Matthews; Yanique Goins; Jose Collins; Jenelle Henson MD; Mel Ochoa MD; Edu Fletcher MD; Dr. Roseline Barakat MD; Dr. Concepcion Rosenberg MD; Dr. Renée Fields MD; Dr. Ian Smith MD; Dr. Jaylin Mchugh MD; Dr. Julia Vázquez MD; Dr. Delvis Latham MD; Dr. Joshua Brito MD; Dr. Monty Mcgrath DO; Dr. Keke Underwood MD; Dr. Sy Heath MD; Dr. Angelica Escobar MD; Dr. Trino Lind MD; Dr. Lauren Falcon MD; Lelo Zurita DO; Jourdan Brice MD ~ Signed [facility] Work Phone: Evaluation note* Diagnosis Hyperthyroidism- Primary Thyrotoxicosis without mention of goiter or other cause, without mention of thyrotoxic crisis or storm [facility]* Diagnosis Chronic gastric ulcer without hemorrhage and without perforation- Primary [facility]* Diagnosis Paroxysmal atrial fibrillation (HCC) Atrial fibrillation [facility]* Diagnosis Chronic systolic congestive heart failure (HCC)- Primary Chronic systolic heart failure Hypertrophic cardiomyopathy (HCC) Other hypertrophic cardiomyopathy VT (ventricular tachycardia) (HCC) Paroxysmal ventricular tachycardia Atrial tachycardia (HCC) Other specified cardiac dysrhythmias Heart failure, unspecified HF chronicity, unspecified heart failure type (HCC) [facility]* Diagnosis Paroxysmal atrial fibrillation (HCC) Atrial fibrillation NICM (nonischemic cardiomyopathy) (HCC) Other primary cardiomyopathies [facility]* Diagnosis Paroxysmal atrial fibrillation (HCC) Atrial fibrillation [facility]* Diagnosis Paroxysmal atrial fibrillation (HCC) Atrial fibrillation documented in this encounter [facility] note* Diagnosis Hypertrophic cardiomyopathy (HCC)- Primary Other hypertrophic cardiomyopathy VT (ventricular tachycardia) (HCC) Paroxysmal ventricular tachycardia Atrial tachycardia (HCC) Other specified cardiac dysrhythmias Chronic systolic congestive heart failure (HCC) Chronic systolic heart failure AICD (automatic cardioverter/defibrillator) present Automatic implantable cardiac defibrillator in situ documented in this encounter [facility] note* Diagnosis AICD (automatic cardioverter/defibrillator) present- Primary Automatic implantable cardiac defibrillator in situ Paroxysmal atrial fibrillation (HCC) Atrial fibrillation Atrial fibrillation, unspecified type (HCC) documented in this encounter [facility] note* Diagnosis Paroxysmal atrial fibrillation (HCC) Atrial fibrillation documented in this encounter [facility] note* Diagnosis Paroxysmal atrial fibrillation (HCC) Atrial fibrillation Atrial fibrillation, unspecified type (HCC) documented in this encounter [facility] note* Diagnosis Paroxysmal atrial fibrillation (HCC) Atrial fibrillation documented in this encounter [facility] note* Diagnosis Paroxysmal atrial fibrillation (HCC) Atrial fibrillation AICD (automatic cardioverter/defibrillator) present Automatic implantable cardiac defibrillator in situ documented in this encounter [facility] note* Diagnosis Graves disease- Primary Toxic diffuse goiter without mention of thyrotoxic crisis or storm Atrial fibrillation, unspecified type (HCC) documented in this encounter [facility] note* Diagnosis Paroxysmal atrial fibrillation (HCC) Atrial fibrillation Atrial fibrillation, unspecified type (HCC) documented in this encounter [facility] note* Diagnosis Paroxysmal atrial fibrillation (HCC) Atrial fibrillation documented in this encounter [facility] noteNo assessment information availableWGenesis [facility] Work Phone: Evaluation note* Diagnosis Paroxysmal atrial fibrillation (HCC) Atrial fibrillation documented in this encounter [facility] note* Diagnosis Paroxysmal atrial fibrillation (HCC) Atrial fibrillation documented in this encounter [facility] note* Diagnosis Onset Date Resolution Status Central sleep apnea [facility] Work Phone: Evaluation note* Diagnosis AICD (automatic cardioverter/defibrillator) present- Primary Automatic implantable cardiac defibrillator in situ Paroxysmal atrial fibrillation (HCC) Atrial fibrillation Hypertrophic cardiomyopathy (HCC) Other hypertrophic cardiomyopathy VT (ventricular tachycardia) Paroxysmal ventricular tachycardia Atrial tachycardia (HCC) Other specified cardiac dysrhythmias documented in this encounter [facility] note* Diagnosis Graves disease- Primary Toxic diffuse goiter without mention of thyrotoxic crisis or storm documented in this encounter [facility] note* Diagnosis Encounter for screening mammogram for breast cancer documented in this encounter [facility] note* Diagnosis Encounter for monitoring Coumadin therapy- Primary Encounter for therapeutic drug monitoring Paroxysmal atrial fibrillation (HCC) Atrial fibrillation documented in this encounter [facility] note* Diagnosis Paroxysmal atrial fibrillation (HCC) Atrial fibrillation AICD (automatic cardioverter/defibrillator) present Automatic implantable cardiac defibrillator in situ documented in this encounter [facility] note* Diagnosis Paroxysmal atrial fibrillation (HCC) Atrial fibrillation AICD (automatic cardioverter/defibrillator) present Automatic implantable cardiac defibrillator in situ documented in this encounter [facility] note* Diagnosis Paroxysmal atrial fibrillation (HCC) Atrial fibrillation documented in this encounter [facility] note* Diagnosis Onset Date Resolution Status Central sleep apnea acute Congestive heart failure acu te Elevated troponin acute Hypoxia acute Non-ST elevation [place] (NSTEMI) acute Warfarin-induced coagulopathy [facility] Work Phone: Evaluation note* Diagnosis Stage 3b chronic kidney disease (HCC)- Primary documented in this encounter [facility] note* Diagnosis Onset Date Resolution Status Central sleep apnea acute A-fib acute Congestive heart failure acu te Elevated troponin acute History of mitral valve repl acement with mechanical valve acute Hypoxia acute Non-ST elevation [place] (NSTEMI) acute Warfarin-induced coagulopathy acute [facility] Work Phone: Evaluation note* Diagnosis Onset Date Resolution Status Central sleep apnea acute A-fib acute Congestive heart failure acu te Elevated troponin resolved Non-ST elevation [place] (NSTEMI) resolved A-fib acute Congestive heart failure acu te H/O mitral valve replacement acute Hypertrophic cardiomyopathy acute Pacemaker acute Central sleep apnea acute Dyspnea acute [facility] Work Phone: Evaluation note* Diagnosis Paroxysmal atrial fibrillation (HCC) Atrial fibrillation Persistent atrial fibrillation (HCC) Atrial fibrillation documented in this encounter [facility] note* Diagnosis Hyperthyroidism- Primary Thyrotoxicosis without mention of goiter or other cause, without mention of thyrotoxic crisis or storm documented in this encounter [facility] note* Diagnosis Paroxysmal atrial fibrillation (HCC) Atrial fibrillation AICD (automatic cardioverter/defibrillator) present Automatic implantable cardiac defibrillator in situ documented in this encounter [facility] note* Diagnosis Graves disease- Primary Toxic diffuse goiter without mention of thyrotoxic crisis or storm [facility] Diagnosis Onset Date Resolution Status A-fib acute Congestive heart failure acu te Elevated troponin resolved Non-ST elevation [place] (NSTEMI) resolved A-fib acute Congestive heart failure acu te H/O mitral valve replacement acute Hypertrophic cardiomyopathy acute Pacemaker acute Central sleep apnea acute Dyspnea acute [facility] Work Phone: Evaluation note* Diagnosis Graves disease- Primary Toxic diffuse goiter without mention of thyrotoxic crisis or storm [facility] Diagnosis Graves disease- Primary Toxic diffuse goiter without mention of thyrotoxic crisis or storm [facility] Diagnosis Paroxysmal atrial fibrillation (HCC) Atrial fibrillation documented in this encounter [facility] note* Diagnosis Elevated glucose- Primary Other abnormal glucose [facility]* Diagnosis Paroxysmal atrial fibrillation (HCC) Atrial fibrillation AICD (automatic cardioverter/defibrillator) present Automatic implantable cardiac defibrillator in situ [facility] Diagnosis Paroxysmal atrial fibrillation (HCC) Atrial fibrillation AICD (automatic cardioverter/defibrillator) present Automatic implantable cardiac defibrillator in situ [facility] Diagnosis Paroxysmal atrial fibrillation (HCC)- Primary Atrial fibrillation AICD (automatic cardioverter/defibrillator) present Automatic implantable cardiac defibrillator in situ [facility]* Diagnosis Onset Date Resolution Status A-fib acute Asthma acute Establishing care with new doctor, encounter for acute Central sleep apnea chronic A-fib acute Congestive heart failure acu te H/O mitral valve replacement acute Hypertrophic cardiomyopathy acute Pacemaker acute [facility] Work Phone: Evaluation note* Diagnosis Encounter for screening mammogram for breast cancer [facility]* Diagnosis Onset Date Resolution Status A-fib acute Asthma acute Congestive heart failure acu te Hypertrophic cardiomyopathy acute Central sleep apnea chronic Hyperthyroidism chronic Immunization declined noneac tive Establishing care with new doctor, encounter for noneactive Blurred vision noneactive Screening for breast cancer noneactive GERD (gastroesophageal reflux disease) noneactive Dyspnea acute A-fib acute Congestive heart failure acu te Dyspnea acute Hypertrophic cardiomyopathy acute Pacemaker acute H/O mitral valve replacement resolved Hyperthyroidism chronic Multinodular goiter chronic [facility] Work Phone: Evaluation note* Diagnosis Onset Date Resolution Status Dyspnea acute A-fib acute Congestive heart failure acu te Dyspnea acute Hypertrophic cardiomyopathy acute Pacemaker acute H/O mitral valve replacement resolved Hyperthyroidism chronic Multinodular goiter chronic [facility] Work Phone: Evaluation note* Diagnosis Onset Date Resolution Status Dyspnea acute A-fib acute Congestive heart failure acu te Dyspnea acute Hypertrophic cardiomyopathy acute Pacemaker acute H/O mitral valve replacement resolved Hyperthyroidism chronic Multinodular goiter chronic A-fib acute Congestive heart failure acu te Dyspnea acute Hypertrophic cardiomyopathy acute Pacemaker acute H/O mitral valve replacement resolved [facility] Work Phone: Evaluation note* Diagnosis Onset Date Resolution Status Dyspnea acute A-fib acute Congestive heart failure acu te Dyspnea acute Hypertrophic cardiomyopathy acute Pacemaker acute H/O mitral valve replacement resolved Hyperthyroidism chronic Multinodular goiter chronic A-fib acute Congestive heart failure acu te Hypertrophic cardiomyopathy acute Pacemaker acute H/O mitral valve replacement resolved [facility] Work Phone: Evaluation note* Diagnosis Onset Date Resolution Status A-fib acute Congestive heart failure acu te Hypertrophic cardiomyopathy acute Pacemaker acute H/O mitral valve replacement resolved [facility] Work Phone: Evaluation note* Diagnosis Onset Date Resolution Status A-fib acute Asthma acute Congestive heart failure acu te Hyperthyroidism acute Hypertrophic cardiomyopathy acute Central sleep apnea chronic Immunization declined noneac tive Establishing care with new doctor, encounter for noneactive Blurred vision noneactive Screening for breast cancer noneactive GERD (gastroesophageal reflux disease) noneactive Dyspnea acute A-fib acute Congestive heart failure acu te Dyspnea acute Hypertrophic cardiomyopathy acute Pacemaker acute H/O mitral valve replacement resolved Hyperthyroidism acute [facility] Work Phone: History and physical note Author Renée Fields [facility] Note Date/Time January 25, 2025 2:53p m [facility] Medical Records Department [address] [place] [address] H&P Exam - Hospitalist 01/25/25 1343 MR#: [id number] Acct: [id number] Name: EM DANIEL SUZETTE Rep #:[id number] 2 : 1955 69 From: Renée Fields MD PCP: Dr. Roseline Barakat MD Status:REG ER Location: ED HPI - General General Date of Admission: 01/25/25 Date of Service: 01/25/25 Chief Complaint: LLE weakness, transient. HPI Narrative The patient is a 69 y/o F w/ PMHx: CKD stage III unclear subtype per GFR trending, Hx autoimmune thyroiditis with multinodular goiter, Hypertrophic cardiomyopathy, HTN, HLD, Chronic asthma, Former tobacco use, PAF, Valvular Heart Disease s/p MVR (mechanical), KEVIN who presents to [facility] ED on 01/25/2025 withhistory of sudden onset 45 minutes prior to arrival of left lower extremity weakness noting that she was walking around at a nursery looking at plants when suddenly her leg gave out with the daughter attempting to lift her but her left leg would not work although she was able to continue to use her left arm with symptoms improving with no paresthesias associated or other neurological symptoms prompting stroke alert and transition to the ED for evaluation. In theED stroke alert initiated and stroke alert evaluation per neurology with NIH stroke assessment 0 with suspicion for TIA. Workup in the ED included T98.3, heart 70, BP 111/56, respiratory rate 18, 97% room air with most recent repeat vitals heart rate 70, BP 104/53, respiratory rate 16, 99% room air, CBC with WBC5.3, hemoglobin 13.1, platelet 151 without marked shift, coags with INR 2.7, PT 29.1, PTT 36.5, BMP with At 18.5, BUN/creatinine 31/1.59, GFR 35, glucose 132, troponin 135, CT of the brain with no acute intracranial findings, CTA head and neck with minimal plaque formation the origin of the left ICA, EKG with paced rhythm with no acute evidence of ischemia, possible L BBB. 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 LOOM SETTER-D) Warfarin-induced coagulopathy Hypoxia Congestive heart failure Collar bone fracture Pacemaker A-fib Hypertrophic cardiomyopathy Home Medications ?Medication ?Instructions ?Recorded ?Last Taken ?Type aspirin 81 mg chewable tablet 81 mg PO DAILY heart hea lth 07/08/22 01/24/25 History (Rahul Chewable Low Dose Aspirin) spacer #1 ea 11/26/22 Unknown Rx warfarin 1 mg tablet 1 mg PO .COMPLEX 12/03/22 Un known History metoprolol succinate 50 mg 50 mg PO QDAY blood pressur e #180 05/22/24 01/24/25 Rx tablet,extended release 24 hr tabs (Toprol XL) torsemide 20 mg tablet 20 mg PO BID #180 tabs 12/1101/24/25 Rx spironolactone 25 mg tablet 25 mg PO DAILY #90 tabs 01/24/25 Rx warfarin 5 mg tablet 5 mg PO DAILY blood thinner #100 01/04/25 01/24/25 Rx tabs albuterol sulfate 90 mcg/actuation 2 puff inhalation Q 4H PRN 01/09/25 Unknown Rx aerosol inhaler shortness of breath or wheez ing #8.5 grams budesonide-formoterol HFA 160 2 inh inhalation BID #1 ea 01/09/25 01/24/25 Rx mcg-4.5 mcg/actuation aerosol inhaler (Symbicort) dapagliflozin propanediol 10 mg 10 mg PO DAILY #90 tab s 01/22/25 01/24/25 Rx tablet (Farxiga) Allergy/AdvReac Type Severity Reaction Status Date / Time No Known Allergies Allergy Verified 01/25/25 14:08 Family History Father Heart disease Grandmother Breast cancer Mother Heart disease Surgical History H/O cataract removal with insertion of prosthetic lens History of mitral valve replacement with mechanical valve Status post spinal disc removal History of hysterectomy Social History household members: family 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 HEENT: Eyes: No visual loss, blurred vision, double vision or yellow sclerae. Ears, Nose, Throat: No hearing loss, sneezing, congestion, runny nose or sore throat. SKIN: No rash or itching, lesions, wounds except + occasional very stage ecchymoses. CARDIOVASCULAR: No chest pain, chest pressure or chest discomfort, palpitations,edema, orthopnea, syncopal events. RESPIRATORY: No shortness of breath, cough or sputum, wheezing, hemoptysis. GASTROINTESTINAL: No anorexia, nausea, vomiting or diarrhea, abdominal pain, melena, BRBPR. GENITOURINARY: No dysuria, frequency, urgency or retention. NEUROLOGICAL: + Transient left lower extremity weakness. No headache, dizziness, syncope, paralysis, ataxia, numbness or tingling in the extremities, change in bowel or bladder control, seizure. MUSCULOSKELETAL: No muscle, back pain, joint pain or stiffness. HEMATOLOGIC: No anemia. + Easy bleeding/bruising. LYMPHATICS: No enlarged nodes. No history of splenectomy. PSYCHIATRIC: No history of depression or anxiety. ENDOCRINOLOGIC: No reports of sweating, cold or heat intolerance. No polyuria orpolydipsia. ALLERGIES: + History of asthma. Vital Signs Vital Signs Vital Signs: 01/25/25 11:58 01/25/25 12:02 01/25/25 12:02 Temperature 98.3 F Temperature Source Oral Pulse Rate 70 Respiratory Rate 18 16 Blood Pressure 111/56 L 114/70 Blood Pressure Mean 74 84 Pulse Ox 97 99 Oxygen Delivery Method Room Air Room Air Room Air 01/25/25 12:32 01/25/25 12:32 01/25/25 13:00 Temperature Temperature Source Pulse Rate 70 70 70 Respiratory Rate 16 16 16 Blood Pressure 113/73 113/74 104/58 L Blood Pressure Mean 86 87 73 Pulse Ox 99 99 99 Oxygen Delivery Method 01/25/25 13:02 01/25/25 13:30 01/25/25 13:30 Temperature Temperature Source Pulse Rate 70 70 70 Respiratory Rate 16 16 16 Blood Pressure 104/53 L 109/75 109/75 Blood Pressure Mean 70 86 86 Pulse Ox 99 99 99 Oxygen Delivery Method Weight Weight: 136 lb 7.458 oz Body Mass Index (BMI) 22.6 Physical Exam Narrative Physical Examination: General: Awake, alert, oriented x 3 and cooperative, seated upright in the ED bed, reports continued complete resolution of left lower extremity weakness Skin: Normal color, normal turgor, no icterus, no cyanosis except occasional stage ecchymoses. HEENT: AT/NC, EOMI, PERRLA, MMM, no carotid bruits or JVD noted. Lungs: Diminished, greater bases, appropriate effort, no rales, ronchi or wheezing. Heart: Regular rate and rhythm; no gallop, rub audible, prostatic click. Abdomen: Soft, NTTP, ND, normal BS, no appreciated HSM. Extremities: No cyanosis, clubbing, or edema. Neurological: Patient awake, alert, oriented as noted, cognitive function intact; pupils equally reactive to light and accommodation, cranial nerves grossnormal, moving all 4 extremities, no focal deficits, sensation intact, strength appropriate, finger-nose and heel cortez appropriate. Psychiatric: Affect appears normal, no acute evidence of depressive or anxiety feelings. Results Lab / Micro Data 01/25/25 11:59 01/25/25 11:59 Labs: Laboratory Results - last 24 hr 01/25/25 11:59: WBC 5.3, RBC 4.43, Hgb 13.1, Hct 40.1, MCV 90.5, MCH 29.6, MCHC 32.7, RDW Std Deviation 50.5 H, RDW Coeff of Sona 15.4 H, Plt Count 151, MPV 9.3,Immature Gran % (Auto) 0.400, Neut % (Auto) 64.9, Lymph % (Auto) 19.3, [place] % (Auto) 12.9 H, Eos % (Auto) 1.9, Baso % (Auto) 0.6, Absolute Neuts (auto) 3.4, Absolute Lymphs (auto) 1.02, Nucleated RBC % 0, PT 29.1 H, INR 2.7, APTT 36.5 H,Sodium 138, Potassium 4.0, Chloride 106, Carbon Dioxide 18.5 L, Anion Gap 14, BUN 31 H, Creatinine 1.59 H, Estim Creat Clear Calc 29.63 L, Est GFR (MDRD) Non-Af 35 L, BUN/Creatinine Ratio 19.2, Glucose 132 H, Calcium 9.4, Troponin T High Sens 135 H* Imaging Radiology Impression Brain CT 01/25/25 12:02 IMPRESSION: CHRONIC CHANGES. NO ACUTE FINDINGS. Red Alert: Nothing acute The critical information above was relayed directly by me by telephone to Ady Lizarraga on 01/25/2025 at 12:12 pm with readback verification. Reading Location: [id number] Head/Neck CTA 01/25/25 12:02 IMPRESSION: Minimal plaque formation at the origin of left internal carotid artery. Red Alert: Minimal placque at origin of Left ICA The critical information above was relayed directly by me by telephone to Ady Lizarraga on 01/25/2025 at 12:28 pm with readback verification. Reading Location: [id number] Assessment & Plan Assessment/Plan (1) TIA (transient ischemic attack): PLAN: Plan The patient is a 69 y/o F w/ PMHx: CKD stage III unclear subtype per GFR trending, Hx autoimmune thyroiditis with multinodular goiter, Hypertrophic cardiomyopathy, HTN, HLD, Chronic asthma, Former tobacco use, PAF, Valvular Heart Disease s/p MVR (mechanical), KEVIN who presents to [facility] ED on 01/25/2025 withhistory of sudden onset 45 minutes prior to arrival of left lower extremity weakness noting that she was walking around at a nursery looking at plants when suddenly her leg gave out with the daughter attempting to lift her but her left leg would not work although she was able to continue to use her left arm with symptoms improving with no paresthesias associated or other neurological symptoms prompting stroke alert and transition to the ED for evaluation. #1. Left lower extremity weakness, resolved concerning for TIA: Will admit to PCU, patient is unable to have MRI thus we will plan for repeat CT head in 24 hours, will obtain ECHO as most recent done remotely, PT/OT/Speech/Nutrition evaluation per protocol. Will allow permissive HTN, maintain on asa and Coumadin with INR trending, will initiate statin w/ AM FLP, fall precautions. Mag, TSH, FLP, HgbA1c requested. Maintain on fall and aspiration precautions. Will continue neurology consultation. #2. Elevated cardiac enzyme of unclear significance, noted chronically elevated: EKG with paced rhythm with no acute evidence of ischemia, possible L BBB, initial trop 135. Will maintain on a monitored bed to assure no acute myocardial infarction with serial cardiac enzymes and EKGs. Magnesium level requested. FLP in AM. Continued on Coumadin with INR trending as well as baby aspirin. Echocardiogram requested. Given presentation with evaluation #1 will continue and once stroke workup clarified may then consider involvement of cardiology if appropriate at that time. Status post AICD as noted, interrogation requested. #3. Chronic Kidney Disease Stage III, unclear subtype per GFR trend: Admission BUN/Cr 31/1.59, GFR 35, baseline renal function primarily 1.4-1.8, most recently12/07/2024 creatinine 1.87, repeat BMP in AM. #4. 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 Velez, per most recent reported note 08/07/2024 continued plan for routine annual thyroid level assessments as well as thyroid ultrasound assessments, encourage continued follow-up with endocrinology and PCP as previously arranged. #5. Hypertrophic cardiomyopathy: Status post AICD, most recent noted echocardiogram 09/27/2023 with normal LV size, EF 35%, severely enlarged LA, mildto moderate TBI, PASP 52 mmHg, mild pulmonary hypertension, stable appearing mechanical mitral valve apparatus. Interrogation requested given elevated cardiac enzyme as noted. Will continue baby aspirin, Coumadin with INR trending, temporarily holding hypertensive regimen for permissive hypertension with readdition once appropriate, not on statin therapy which will be added as noted given presentation #1. #6. PAF: Will temporally hold metoprolol for permissive hypertension given presentation as noted #1, continue Coumadin with INR trending. #7. Chronic asthma: Will temporarily hold home inhalers in the interim transition to ATC budesonide therapy, PRN albuterol, HOB, IS parameters. #8. Valvular heart disease: Status post mitral valve replacement with mechanical valve, continue Coumadin with INR trending. Most recent noted echocardiogram 09/27/2023 with normal LV size, EF 35%, severely enlarged LA, mildto moderate TBI, PASP 52 mmHg, mild pulmonary hypertension, stable appearing mechanical mitral valve apparatus. #9. Hypertension: Will maintain permissive hypertension given #1 with as neededagents per stroke protocol. #10. Hyperlipidemia: Per current list not on regimen, FLP in AM, statin added given #1. #11. KEVIN: Noted history of central sleep apnea, continue PAP therapy, noted AHI47 on ASV. #12. Former tobacco use: Encourage continued tobacco cessation. #13. DVT prophylaxis: Continue Coumadin with INR trending. #14. CODE status: Patient HCPOA and living will are not in place but she notes her 2 daughters would be her medical decision makers if necessary. Discussed CODE status at length including difference between FULL code, DNR-CCA and DNR-CCstatus. Following discussions about the differences in these status, requested Full Code status. Advanced Care Planning Face to Face Time: 16 minutes. Charges/Coding Visit Charges Inpatient E&M: 52474 Init Hosp L2 Procedures Hospitalists Procedures: 41448 Advncd Care Plan 30 Min 01/25/25 1453 <Electronically signed by Renée Fields MD> Cosigner Signature (if applicable): CC: Dr. Roseline Barakat MD; Dr. Renée Fields MD~ Signed [facility] Work Phone: [facility] ([facility] Outpatient Procedure (Routine) - Authorized Specialty Diagnoses / Procedures Referred By Contac t Referred To Contact [facility] Diagnoses Chronic gastric ulcer without hemorrhage and without perforation Procedures EGD DIAGNOSTIC ESOPHAGOGASTRODUODENOSC OPY TRANSORAL DIAGNOSTIC Tavo Islas MD [address] [place] [address] [facility] [address] [place] [id number] Referral ID Status Reason Start Date Expiration Date Visits Requested Visits Authorized [id number] Authorized Auto-Generat ed Referral 12/19/2021 12/19/2022 1 1 [facility] for referral (narrative)* Outpatient Procedure (Routine) - Pending Review Specialty Diagnoses / Procedures Referred By Contac t Referred To [facility] Diagnoses Hypertrophic cardiomyopathy (HCC) VT (ventricular tachycardia) (HCC) Atrial tachycardia (HCC) Chronic systolic congestive heart failure (HCC) AICD (automatic cardioverter/defibrillator ) present Procedures ECG COMPLETE ECG ROUTINE ECG W/LEAST 12 LDS W/I&R Oneyda Guy MD [address] [facility] [address] [place] [address] [facility] [address] [place] [id number] Referral ID Status Reason Start Date Expiration Date Visits Requested Visits Authorized [id number] Pending Review Auto-Generat ed Referral 02/11/2022 02/11/2023 1 1 [facility] for referral (narrative)* Outpatient Procedure (Routine) - Pending Review Specialty Diagnoses / Procedures Referred By Elgin cosme Referred To [facility] Diagnoses AICD (automatic cardioverter/defibrillator ) present Paroxysmal atrial fibrillation (HCC) Hypertrophic cardiomyopathy (HCC) VT (ventricular tachycardia) Atrial tachycardia (HCC) Procedures ECG COMPLETE ECG ROUTINE ECG W/LEAST 12 LDS W/I&R Oneyda Guy MD [address] [facility] [address] [place] [address] [facility] [address] [address] Referral ID Status Reason Start Date Expiration Date Visits Requested Visits Authorized [id number] Pending Review Auto-Generat ed Referral 2 07/28/2023 1 1 [facility] for referral (narrative)* Diagnostic Procedure Only (Routine) - Pending Review Specialty Diagnoses / Procedures Referred By Elgin cosme Referred To Contact [facility] Diagnoses Encounter for screening mammogram for breast cancer Procedures RAJ SCREENING SCREENING MAMMOGRAPHY BI 2-VIEW BREAST INC CAD Yordy Allen MD [address] [place] [address] [facility] [address] [place] [id number] Referral ID Status Reason Start Date Expiration Date Visits Requested Visits Authorized [id number] Pending Review Auto-Generat ed Referral 08/20/2022 09/19/2023 1 1 [facility] for referral (narrative)* Outpatient Procedure (Routine) - Pending Review Specialty Diagnoses / Procedures Referred By Contac t Referred To [facility] Diagnoses Paroxysmal atrial fibrillation (HCC) Procedures ECG COMPLETE ECG ROUTINE ECG W/LEAST 12 LDS W/I&R Abdullahi Sheldon PA-C [address] [facility] [address] [place] [address] [facility] [address] [place] [address] Referral ID Status Reason Start Date Expiration Date Visits Requested Visits Authorized [id number] Pending Review Auto-Generat ed Referral 10/09/2022 10/09/2023 [facility] Diagnostic Procedure Only (Routine) - Pending Review Specialty Diagnoses / Procedures Referred By Elgin cosme Referred To Contact [facility] Diagnoses Encounter for screening mammogram for breast cancer Procedures RAJ SCREENING SCREENING MAMMOGRAPHY BI 2-VIEW BREAST INC CAD Alejandro, Yordy Delgado MD [address] [place] [address] [facility] [address] [place] [address] Referral ID Status Reason Start Date Expiration Date Visits Requested Visits Authorized [id number] Pending Review Auto-Generat ed Referral 3 09/02/[address] [facility] [facility]No reason for referral [facility] Work Phone: Summary Purpose Family History Relationship Condition Age at Onset Recorded Date/[place] father Cardiac disease Unknown Relationship Condition Age at Onset Recorded Date/T [place] father Cardiac disease Unknown grandmother Malignant neoplasm of breast Unknown Relationship Condition Age at Onset Recorded Date/T [place] father Cardiac disease Unknown grandmother Malignant neoplasm of breast Unknown mother Cardiac disease Unknown Advance Directives Documents on File Type Date Recorded Patient Liability Claims Representative Expl anation Advance Directive(s) Advance Directive(s) 10/08/2021 10:37 AM Advance Directive(s) 10/01/2021 12:50 PM Advance Directive(s) 09/13/2021 10:47 PM Advance Directive(s) 07/30/2020 8:34 AM Advance Directive(s) 05/05/2019 7:14 AM Latest Code Status on File Code Status Date Activated Date Inactivated Comments Full Code 09/14/2021 3:40 AM 09/17/2021 7:30 PM Full Code Order Discussed With: Patient Documents on File Type Date Recorded Patient Liability Claims Representative Expl anation Advance Directive(s) Advance Directive(s) 10/08/2021 10:37 AM Advance Directive(s) 10/01/2021 12:50 PM Advance Directive(s) 09/13/2021 10:47 PM Advance Directive(s) 07/30/2020 8:34 AM Advance Directive(s) 05/05/2019 7:14 AM Latest Code Status on File Code Status Date Activated Date Inactivated Comments Full Code 09/14/2021 3:40 AM 09/17/2021 7:30 PM Documents on File Type Date Recorded Patient Liability Claims Representative Expl anation Advance Directive(s) Advance Directive(s) 12/29/2021 4:02 PM Advance Directive(s) 10/08/2021 10:37 AM Advance Directive(s) 10/01/2021 12:50 PM Advance Directive(s) 09/13/2021 10:47 PM Advance Directive(s) 07/30/2020 8:34 AM Advance Directive(s) 05/05/2019 7:14 AM Documents on File Type Date Recorded Patient Liability Claims Representative Expl anation Advance Directive(s) Advance Directive(s) 12/29/2021 4:02 PM Advance Directive(s) 10/08/2021 10:37 AM Advance Directive(s) 10/01/2021 12:50 PM Advance Directive(s) 09/13/2021 10:47 PM Advance Directive(s) 07/30/2020 8:34 AM Advance Directive(s) 05/05/2019 7:14 AM Documents on File Type Date Recorded Patient Liability Claims Representative Expl anation Advance Directive(s) Advance Directive(s) 03/26/2022 5:53 PM Advance Directive(s) 12/29/2021 4:02 PM Advance Directive(s) 10/08/2021 10:37 AM Advance Directive(s) 10/01/2021 12:50 PM Advance Directive(s) 09/13/2021 10:47 PM Advance Directive(s) 07/30/2020 8:34 AM Advance Directive(s) 05/05/2019 7:14 AM Documents on File Type Date Recorded Patient Liability Claims Representative Expl anation Advance Directive(s) Advance Directive(s) 03/30/2022 8:49 AM Advance Directive(s) 03/26/2022 5:53 PM Advance Directive(s) 12/29/2021 4:02 PM Advance Directive(s) 10/08/2021 10:37 AM Advance Directive(s) 10/01/2021 12:50 PM Advance Directive(s) 09/13/2021 10:47 PM Advance Directive(s) 07/30/2020 8:34 AM Advance Directive(s) 05/05/2019 7:14 AM Advance Directive Response Recorded Date/ Time Living Will No August 17 8:15am Power of Incident Analyst No August 17, 2022 8:15am Advance Directive Response Recorded Date/ Time Living Will No September 20 11:27pm Power of Incident Analyst No September 20, 2 023 11:27pm Latest Code Status on File Code Status Date Activated Date Inactivated Comments Full Code 09/14/2021 3:40 AM 09/17/2021 7:30 PM Question Answer Comments Full Code Order Discussed With: Patient Advance Directive Response Recorded Date/ Time Living Will No September 21 12:27am Power of Incident Analyst No September 21, 2 023 12:27am Latest Code Status on File Code Status Date Activated Date Inactivated Comments Full Code 09/14/2021 3:40 AM 09/17/2021 7:30 PM Question Answer Comments Full Code Order Discussed With: Patient Advance Directive Response Recorded Date/ Time Living Will No September 21 12:27am Do you have a Healthcare Power of Incident Analyst? No September 21, 2022 12:27am Advance Directive Response Recorded Date/ Time Living Will No September 21 12:27am Do you have a Healthcare Power of Incident Analyst? No September 21, 2022 12:27am Do you have a Healthcare Power of Incident Analyst? No January 25, 2025 3:47pm Hospital Course Note Send Summary: Discharge Summ miriam Providers: Provider Role Provider Name ? Referring Syeda Neff ? Consulting Electrophysiology Team ? Attending Mitzi Varela ? Primary Gerry Abbasi Note Recipients: Gerry Abbasi MD - [id number] [] Syeda Neff, ALAN - [phone] [] Oneyda Guy MD Discharge: Summary: Admission Date: .31-Jan-2018 14:40:00 Discharge Date: 03-Feb-2018 Attending Physician at Discharge: Mitzi Varela Admission Reason: Tikosyn Loading(1) Final Discharge Diagnoses: A-fib, Anticoagulation management encounter, Encounter for monitoring dofetilide therapy, Procedures: None Condition at Discharge: Satisfactory Disposition at Discharge: .Home Vital Signs: T P R BP SpO2 Value 36.6 70 18 112/78 95% Date/Time 02/03 8:00 02/03 8:00 02/03 8:00 02/03 8:00 02/03 8:00 Range (35.6C - 36.6C ) (65 - 71 ) (18 - 18 ) (104 - 120 )/ (66 - 79 ) (95% - 97% ) Hospital Course: 62yo F with extensive card hx, including HCM s/p dual BSC ICD 2014(Mcgrath), s/p extensive septal my (more content not included)... Health Concerns Infection Onset Date Last Indicated Resolved Time COVID-19 Rule-Out 03/30/2022 03/30/2022 03/30/2022 2:27 PM EDT Chief Complaint and Reason for Visit Chief Complaint SNORING, APNEA, HYPE RSOMNIA Chief Complaint SNORING, APNEA, HYPE RSOMNIA Sleep problems CENTRAL SLEEP APNEA Reason for Visit Central sleep apnea Chief Complaint SNORING, APNEA, HYPE RSOMNIA Sleep problems CENTRAL SLEEP APNEA CSA; ASV Set up *DEVICE TAGGED fall Reason for Visit Central sleep apnea Chief Complaint SNORING, APNEA, HYPE RSOMNIA Sleep problems CENTRAL SLEEP APNEA CSA; ASV Set up *DEVICE TAGGED fall KEVIN Reason for Visit Central sleep apnea Chief Complaint SNORING, APNEA, HYPE RSOMNIA Sleep problems CENTRAL SLEEP APNEA CSA; ASV Set up *DEVICE TAGGED fall KEVIN ACUTE ON CHRONIC HEART FAILURE WITH PRESERVE EF Reason for Visit Central sleep apnea Congestive heart failure Elevated troponin Hypoxia Non-ST elevation [place] (NSTEMI) Warfarin-induced coagulopathy Chief Complaint SNORING, APNEA, HYPE RSOMNIA Sleep problems CENTRAL SLEEP APNEA CSA; ASV Set up *DEVICE TAGGED fall KEVIN ACUTE ON CHRONIC HEART FAILURE WITH PRESERVE EF ACUTE ON CHRONIC HEART FAILURE WITH PRESERVE EF ACUTE ON CHRONIC HEART FAILURE WITH PRESERVE EF ACUTE ON CHRONIC HEART FAILURE WITH PRESERVE EF Reason for Visit Central sleep apnea A-fib Congestive heart failure Elevated troponin History of mitral valve replacement with mechanical valve Hypoxia Non-ST elevation NH (NSTEMI) Warfarin-induced coagulopathy Chief Complaint SNORING, APNEA, HYPE RSOMNIA Sleep problems CENTRAL SLEEP APNEA CSA; ASV Set up *DEVICE TAGGED fall KEVIN ACUTE ON CHRONIC HEART FAILURE WITH PRESERVE EF ACUTE ON CHRONIC HEART FAILURE WITH PRESERVE EF ACUTE ON CHRONIC HEART FAILURE WITH PRESERVE EF ACUTE ON CHRONIC HEART FAILURE WITH PRESERVE EF Primary central sleep apnea, DYSPNEA Primary central sleep apnea, DYSPNEA DYSPNEA s/p [facility] per MEDICAL EQUIPMENT SALES DYSPNEA 3 M FU Reason for Visit Central sleep apnea A-fib Congestive heart failure Elevated troponin Non-ST elevation [place] (NSTEMI) A-fib Congestive heart failure H/O mitral valve replacement Hypertrophic cardiomyopathy Pacemaker Central sleep apnea Dyspnea Chief Complaint CENTRAL SLEEP APNEA CSA; ASV Set up *DEVICE TAGGED fall KEVIN ACUTE ON CHRONIC HEART FAILURE WITH PRESERVE EF ACUTE ON CHRONIC HEART FAILURE WITH PRESERVE EF ACUTE ON CHRONIC HEART FAILURE WITH PRESERVE EF ACUTE ON CHRONIC HEART FAILURE WITH PRESERVE EF Primary central sleep apnea, DYSPNEA Primary central sleep apnea, DYSPNEA DYSPNEA s/p [facility] per MEDICAL EQUIPMENT SALES DYSPNEA 3 M FU E ORDER Reason for Visit A-fib Congestive heart failure Elevated troponin Non-ST elevation [place] (NSTEMI) A-fib Congestive heart failure H/O mitral valve replacement Hypertrophic cardiomyopathy Pacemaker Central sleep apnea Dyspnea Chief Complaint 3 M FU E-ORDER SOB, see clinical note Arian Primary central sleep apnea Reason for Visit A-fib Asthma Establishing care with new doctor, encounter for Central sleep apnea A-fib Congestive heart failure H/O mitral valve replacement Hypertrophic cardiomyopathy Pacemaker Chief Complaint SHEEP CLIPPER EST CARE PPW SENT Pacer Check Remote DICUSS MEDICATIONS 6 M FU E ORDERS Pacer Check Remote Thyroid Encounter for other screening for malignant neopla Reason for Visit A-fib Asthma Congestive heart failure Hypertrophic cardiomyopathy Central sleep apnea Hyperthyroidism Immunization declined Establishing care with new doctor, encounter for Blurred vision Screening for breast cancer GERD (gastroesophageal reflux disease) Dyspnea A-fib Congestive heart failure Dyspnea Hypertrophic cardiomyopathy Pacemaker H/O mitral valve replacement Hyperthyroidism Multinodular goiter Chief Complaint Pacer Check Remote DICUSS MEDICATIONS 6 M FU E ORDERS Pacer Check Remote Thyroid Encounter for other screening for malignant neopla DYSPNEA Reason for Visit Dyspnea A-fib Congestive heart failure Dyspnea Hypertrophic cardiomyopathy Pacemaker H/O mitral valve replacement Hyperthyroidism Multinodular goiter Chief Complaint Pacer Check Remote DICUSS MEDICATIONS 6 M FU E ORDERS Pacer Check Remote Thyroid Encounter for other screening for malignant neopla Pacer Check Remote DYSPNEA 6-8 W FU Reason for Visit Dyspnea A-fib Congestive heart failure Dyspnea Hypertrophic cardiomyopathy Pacemaker H/O mitral valve replacement Hyperthyroidism Multinodular goiter A-fib Congestive heart failure Dyspnea Hypertrophic cardiomyopathy Pacemaker H/O mitral valve replacement Chief Complaint DICUSS MEDICATIONS 6 M FU E ORDERS Pacer Check Remote Thyroid Encounter for other screening for malignant neopla Pacer Check Remote DYSPNEA Pacer Check Remote 6-8 W FU INT LABS Reason for Visit Dyspnea A-fib Congestive heart failure Dyspnea Hypertrophic cardiomyopathy Pacemaker H/O mitral valve replacement Hyperthyroidism Multinodular goiter A-fib Congestive heart failure Hypertrophic cardiomyopathy Pacemaker H/O mitral valve replacement Chief Complaint DYSPNEA Pacer Check Remote 6-8 W FU INT LABS Pacer Check Remote EORDER Reason for Visit A-fib Congestive heart failure Hypertrophic cardiomyopathy Pacemaker H/O mitral valve replacement Chief Complaint SHEEP CLIPPER EST CARE PPW SENT DICUSS MEDICATIONS 6 M FU E ORDERS Thyroid Reason for Visit A-fib Asthma Congestive heart failure Hyperthyroidism Hypertrophic cardiomyopathy Central sleep apnea Immunization declined Establishing care with new doctor, encounter for Blurred vision Screening for breast cancer GERD (gastroesophageal reflux disease) Dyspnea A-fib Congestive heart failure Dyspnea Hypertrophic cardiomyopathy Pacemaker H/O mitral valve replacement Hyperthyroidism Chief Complaint Admit Date Pacer Check Remote August 25, 2024 2:51am Pacer Check Remote September 08, 2024 3:04am GOITER September 14, 2024 1: 56pm Pacer Check Remote October 11, 2024 9 :23am Pacer Check Remote November 19, 2024 2:02 pm Pacer Check Remote November 27, 2024 2:5 1am INT LAB ORDERS December 07, 2024 2:1 0pm Chief Complaint Admit Date Pacer Check Remote October 11, 2024 9 :23am Pacer Check Remote November 19, 2024 2:02 pm Pacer Check Remote November 27, 2024 2:5 1am INT LAB ORDERS December 07, 2024 2:1 0pm Pacer Check Remote December 12, 2024 9:00 am overdue for in-clinic f/u Sees MEDICAL EQUIPMENT SALES @ 10: 15 December 12, 2024 9:26am 1 Y FU NEEDLE LOOM SETTER-D f/u @ 9:30am December 12 9:30am Pacer Check Remote December 18, 2024 3:31 am Pacer Check Remote January 01, 2025 2:5 2am Pacer Check Remote January 08, 2025 2:5 0am 6 M FU January 09, 2025 9:2 5am Pacer Check Remote January 10, 2025 2:5 1am Pacer Check Remote January 15, 2025 2:51am STROKE January 25, 2025 1:43p m TIA January 25, 2025 1:44p m Reason for Visit Admit Date Congestive heart failure December 12, 2024 9:26am Presence of cardiac resynchr onization therapy defibrillator (NEEDLE LOOM SETTER-D) December 12, 2024 9:26am Hypertrophic cardiomyopathy December 12, 2 025 9:26am A-fib December 12, 2024 9:30 am Congestive heart failure December 12, 2024 9:30am Pacemaker December 12, 2024 9:30 am Hypertrophic cardiomyopathy December 12, 2 025 9:30am H/O mitral valve replacement December 12, 2024 9:30am Asthma January 09, 2025 9:2 5am Central sleep apnea January 09, 2025 9:2 5am Hypertrophic cardiomyopathy January 09, 2025 9:25am TIA (transient ischemic attack) January 1:44pm Chief Complaint Admit Date Pacer Check Remote October 11, 2024 9 :23am Pacer Check Remote November 19, 2024 2:02 pm Pacer Check Remote November 27, 2024 2:5 1am INT LAB ORDERS December 07, 2024 2:1 0pm Pacer Check Remote December 12, 2024 9:00 am overdue for in-clinic f/u Sees MEDICAL EQUIPMENT SALES @ 10: 15 December 12, 2024 9:26am 1 Y FU NEEDLE LOOM SETTER-D f/u @ 9:30am December 12 9:30am Pacer Check Remote December 18, 2024 3:31 am Pacer Check Remote January 01, 2025 2:5 2am Pacer Check Remote January 08, 2025 2:5 0am 6 M FU January 09, 2025 9:2 5am Pacer Check Remote January 10, 2025 2:5 1am Pacer Check Remote January 15, 2025 2:51am STROKE January 25, 2025 1:43p m TIA January 25, 2025 1:44p m TIA (cardiology) January 26, 2025 12:44 pm INT XRAY AND LAB ORDERS February 08, 2025 1 :53pm Shortness of breath February 08, 2025 2:30p m Reason for Visit Admit Date Congestive heart failure December 12, 2024 9:26am Presence of cardiac resynchr onization therapy defibrillator (NEEDLE LOOM SETTER-D) December 12, 2024 9:26am Hypertrophic cardiomyopathy December 12 9:26am A-fib December 12, 2024 9:30 am Congestive heart failure December 12, 2024 9:30am Pacemaker December 12, 2024 9:30 am Hypertrophic cardiomyopathy December 12 9:30am H/O mitral valve replacement December 12, 2024 9:30am Asthma January 09, 2025 9:2 5am Central sleep apnea January 09, 2025 9:2 5am Hypertrophic cardiomyopathy January 09, 2025 9:25am TIA (transient ischemic attack) January 1:44pm Dyspnea February 08, 2025 2:30p m Asthma February 08, 2025 2:30p m Central sleep apnea February 08, 2025 2:30p m Chief Complaint Admit Date Pacer Check Remote November 19, 2024 2:02 pm Pacer Check Remote November 27, 2024 2:5 1am INT LAB ORDERS December 07, 2024 2:1 0pm Pacer Check Remote December 12, 2024 9:00 am overdue for in-clinic f/u Sees MEDICAL EQUIPMENT SALES @ 10: 15 December 12, 2024 9:26am 1 Y FU NEEDLE LOOM SETTER-D f/u @ 9:30am December 12 9:30am Pacer Check Remote December 18, 2024 3:31 am Pacer Check Remote January 01, 2025 2:5 2am Pacer Check Remote January 08, 2025 2:5 0am 6 M FU January 09, 2025 9:2 5am Pacer Check Remote January 10, 2025 2:5 1am Pacer Check Remote January 15, 2025 2:51am STROKE January 25, 2025 1:43p m TIA January 25, 2025 1:44p m TIA (cardiology) January 26, 2025 12:44 pm INT XRAY AND LAB ORDERS February 08, 2025 1 :53pm Shortness of breath February 08, 2025 2:30p m Chief Complaint Admit Date Pacer Check Remote November 19, 2024 2:02 pm Pacer Check Remote November 27, 2024 2:5 1am INT LAB ORDERS December 07, 2024 2:1 0pm Pacer Check Remote December 12, 2024 9:00 am overdue for in-clinic f/u Sees MEDICAL EQUIPMENT SALES @ 10: December 12, 2024 9:26am 1 Y FU NEEDLE LOOM SETTER-D f/u @ 9:30am December 12 9:30am Pacer Check Remote December 18, 2024 3:31 am Pacer Check Remote January 01, 2025 2:5 2am Pacer Check Remote January 08, 2025 2:5 0am 6 M FU January 09, 2025 9:2 5am Pacer Check Remote January 10, 2025 2:5 1am Pacer Check Remote January 15, 2025 2:51am STROKE January 25, 2025 1:43p m TIA January 25, 2025 1:44p m TIA (cardiology) January 26, 2025 12:44 pm Pacer Check Remote January 31, 2025 2:51a m INT XRAY AND LAB ORDERS February 08, 2025 1 :53pm Shortness of breath February 08, 2025 2:30p m Pacer Check Remote February 14, 2025 2:52a m G47.31 - Primary central sleep apnea Feb 9:00am HELP WITH NEW MASK LINER February 23, 2025 11:00am Chief Complaint Admit Date Pacer Check Remote November 19, 2024 2:02 pm Pacer Check Remote November 27, 2024 2:5 1am INT LAB ORDERS December 07, 2024 2:1 0pm Pacer Check Remote December 12, 2024 9:00 am overdue for in-clinic f/u Sees MEDICAL EQUIPMENT SALES @ : December 12, 2024 9:26am 1 Y FU NEEDLE LOOM SETTER-D f/u @ 9:30am December 12 9:30am Pacer Check Remote December 18, 2024 3:31 am Pacer Check Remote January 01, 2025 2:5 2am Pacer Check Remote January 08, 2025 2:5 0am 6 M FU January 09, 2025 9:2 5am Pacer Check Remote January 10, 2025 2:5 1am Pacer Check Remote January 15, 2025 2:51am STROKE January 25, 2025 1:43p m TIA January 25, 2025 1:44p m TIA (cardiology) January 26, 2025 12:44 pm Pacer Check Remote January 31, 2025 2:51a m INT XRAY AND LAB ORDERS February 08, 2025 1 :53pm Shortness of breath February 08, 2025 2:30p m Pacer Check Remote February 14, 2025 2:52a m G47.31 - Primary central sleep apnea Feb 9:00am HELP WITH NEW MASK LINER February 23, 2025 11:00am TRY DIFFERENT MASK March 06, 2025 11:3 0am PER MEDICAL EQUIPMENT SALES for edema, CHF L.L March 06 11:35am INT LAB ORDERS March 06, 2025 12:2 8pm Additional Source Comments INFORMATION SOURCE (unrecogn ized section and content) DATE CREATED AUTHOR 03/02/2018 [facility] DATE CREATED AUTHOR AUTHOR'S ORGANIZ ATION 03/04/2018 [facility] DATE CREATED AUTHOR AUTHOR'S ORGANIZ ATION 03/07/2018 [facility] DATE CREATED AUTHOR AUTHOR'S ORGANIZ ATION 09/17/2018 [employer] DATE CREATED AUTHOR AUTHOR'S ORGANIZ ATION 12/29/2018 [facility] DATE CREATED AUTHOR AUTHOR'S ORGANIZ ATION 03/29/2020 [facility] DATE CREATED AUTHOR AUTHOR'S ORGANIZ ATION 08/21/2021 [facility] DATE CREATED AUTHOR AUTHOR'S ORGANIZ ATION 07/04/2022 [facility] DATE CREATED AUTHOR AUTHOR'S ORGANIZ ATION 11/14/2023 [facility] DATE CREATED AUTHOR AUTHOR'S ORGANIZ ATION 03/02/2025 [facility] Source Comments (unrecognize d section and content) In the event this informatio n is protected by the [facility] Confidentiality of Alcohol and Drug Abuse Patient Records regulations: The Federal rules restrict any use of the information to criminally investigate or prosecute any alcohol or drug abuse patient.[facility] the event this information is protected by the Federal Confidentiality of Alcohol and Drug Abuse Patient Records regulations: The Federal rules restrict any use of the information to criminally investigate or prosecute any alcohol or drug abuse patient.[facility] the event this information is protected by the Federal Confidentiality of Alcohol and Drug Abuse Patient Records regulations: The Federal rules restrict any use of the information to criminally investigate or prosecute any alcohol or drug abuse patient.[facility] the event this information is protected by the Federal Confidentiality of Alcohol and Drug Abuse Patient Records regulations: The Federal rules restrict any use of the information to criminally investigate or prosecute any alcohol or drug abuse patient.[facility] the event this information is protected by the Federal Confidentiality of Alcohol and Drug Abuse Patient Records regulations: The Federal rules restrict any use of the information to criminally investigate or prosecute any alcohol or drug abuse patient.[facility] the event this information is protected by the Federal Confidentiality of Alcohol and Drug Abuse Patient Records regulations: The Federal rules restrict any use of the information to criminally investigate or prosecute any alcohol or drug abuse patient.[facility] the event this information is protected by the Federal Confidentiality of Alcohol and Drug Abuse Patient Records regulations: The Federal rules restrict any use of the information to criminally investigate or prosecute any alcohol or drug abuse patient.[facility] the event this information is protected by the Federal Confidentiality of Alcohol and Drug Abuse Patient Records regulations: The Federal rules restrict any use of the information to criminally investigate or prosecute any alcohol or drug abuse patient.[facility] the event this information is protected by the Federal Confidentiality of Alcohol and Drug Abuse Patient Records regulations: The Federal rules restrict any use of the information to criminally investigate or prosecute any alcohol or drug abuse patient.[facility] the event this information is protected by the Federal Confidentiality of Alcohol and Drug Abuse Patient Records regulations: The Federal rules restrict any use of the information to criminally investigate or prosecute any alcohol or drug abuse patient.[facility] the event this information is protected by the Federal Confidentiality of Alcohol and Drug Abuse Patient Records regulations: The Federal rules restrict any use of the information to criminally investigate or prosecute any alcohol or drug abuse patient.[facility] the event this information is protected by the Federal Confidentiality of Alcohol and Drug Abuse Patient Records regulations: The Federal rules restrict any use of the information to criminally investigate or prosecute any alcohol or drug abuse patient.[facility] the event this information is protected by the Federal Confidentiality of Alcohol and Drug Abuse Patient Records regulations: The Federal rules restrict any use of the information to criminally investigate or prosecute any alcohol or drug abuse patient.[facility] the event this information is protected by the Federal Confidentiality of Alcohol and Drug Abuse Patient Records regulations: The Federal rules restrict any use of the information to criminally investigate or prosecute any alcohol or drug abuse patient.[facility] the event this information is protected by the Federal Confidentiality of Alcohol and Drug Abuse Patient Records regulations: The Federal rules restrict any use of the information to criminally investigate or prosecute any alcohol or drug abuse patient.[facility] the event this information is protected by the Federal Confidentiality of Alcohol and Drug Abuse Patient Records regulations: The Federal rules restrict any use of the information to criminally investigate or prosecute any alcohol or drug abuse patient.[facility] the event this information is protected by the Federal Confidentiality of Alcohol and Drug Abuse Patient Records regulations: The Federal rules restrict any use of the information to criminally investigate or prosecute any alcohol or drug abuse patient.[facility] the event this information is protected by the Federal Confidentiality of Alcohol and Drug Abuse Patient Records regulations: The Federal rules restrict any use of the information to criminally investigate or prosecute any alcohol or drug abuse patient.[facility] Hospital[facility] the event this information is protected by the Federal Confidentiality of Alcohol and Drug Abuse Patient Records regulations: The Federal rules restrict any use of the information to criminally investigate or prosecute any alcohol or drug abuse patient.[facility] HospitalIn the event this information is protected by the Federal Confidentiality of Alcohol and Drug Abuse Patient Records regulations: The Federal rules restrict any use of the information to criminally investigate or prosecute any alcohol or drug abuse patient.[facility] HospitalIn the event this information is protected by the Federal Confidentiality of Alcohol and Drug Abuse Patient Records regulations: The Federal rules restrict any use of the information to criminally investigate or prosecute any alcohol or drug abuse patient.[facility] Hospital[facility] the event this information is protected by the Federal Confidentiality of Alcohol and Drug Abuse Patient Records regulations: The Federal rules restrict any use of the information to criminally investigate or prosecute any alcohol or drug abuse patient.[facility] HospitalIn the event this information is protected by the Federal Confidentiality of Alcohol and Drug Abuse Patient Records regulations: The Federal rules restrict any use of the information to criminally investigate or prosecute any alcohol or drug abuse patient.[facility] HospitalIn the event this information is protected by the Federal Confidentiality of Alcohol and Drug Abuse Patient Records regulations: The Federal rules restrict any use of the information to criminally investigate or prosecute any alcohol or drug abuse patient.[facility] HospitalIn the event this information is protected by the Federal Confidentiality of Alcohol and Drug Abuse Patient Records regulations: The Federal rules restrict any use of the information to criminally investigate or prosecute any alcohol or drug abuse patient.[facility] HospitalIn the event this information is protected by the Federal Confidentiality of Alcohol and Drug Abuse Patient Records regulations: The Federal rules restrict any use of the information to criminally investigate or prosecute any alcohol or drug abuse patient.[facility] HospitalIn the event this information is protected by the Federal Confidentiality of Alcohol and Drug Abuse Patient Records regulations: The Federal rules restrict any use of the information to criminally investigate or prosecute any alcohol or drug abuse patient.[facility] HospitalIn the event this information is protected by the Federal Confidentiality of Alcohol and Drug Abuse Patient Records regulations: The Federal rules restrict any use of the information to criminally investigate or prosecute any alcohol or drug abuse patient.[facility] HospitalIn the event this information is protected by the Federal Confidentiality of Alcohol and Drug Abuse Patient Records regulations: The Federal rules restrict any use of the information to criminally investigate or prosecute any alcohol or drug abuse patient.[facility] HospitalIn the event this information is protected by the Federal Confidentiality of Alcohol and Drug Abuse Patient Records regulations: The Federal rules restrict any use of the information to criminally investigate or prosecute any alcohol or drug abuse patient.[facility] HospitalIn the event this information is protected by the Federal Confidentiality of Alcohol and Drug Abuse Patient Records regulations: The Federal rules restrict any use of the information to criminally investigate or prosecute any alcohol or drug abuse patient.[facility] HospitalIn the event this information is protected by the Federal Confidentiality of Alcohol and Drug Abuse Patient Records regulations: The Federal rules restrict any use of the information to criminally investigate or prosecute any alcohol or drug abuse patient.[facility] HospitalIn the event this information is protected by the Federal Confidentiality of Alcohol and Drug Abuse Patient Records regulations: The Federal rules restrict any use of the information to criminally investigate or prosecute any alcohol or drug abuse patient.[facility] HospitalIn the event this information is protected by the Federal Confidentiality of Alcohol and Drug Abuse Patient Records regulations: The Federal rules restrict any use of the information to criminally investigate or prosecute any alcohol or drug abuse patient.[facility] HospitalIn the event this information is protected by the Federal Confidentiality of Alcohol and Drug Abuse Patient Records regulations: The Federal rules restrict any use of the information to criminally investigate or prosecute any alcohol or drug abuse patient.[facility] HospitalIn the event this information is protected by the Federal Confidentiality of Alcohol and Drug Abuse Patient Records regulations: The Federal rules restrict any use of the information to criminally investigate or prosecute any alcohol or drug abuse patient.[facility] HospitalIn the event this information is protected by the Federal Confidentiality of Alcohol and Drug Abuse Patient Records regulations: The Federal rules restrict any use of the information to criminally investigate or prosecute any alcohol or drug abuse patient.[facility] HospitalIn the event this information is protected by the Federal Confidentiality of Alcohol and Drug Abuse Patient Records regulations: The Federal rules restrict any use of the information to criminally investigate or prosecute any alcohol or drug abuse patient.[facility] HospitalIn the event this information is protected by the Federal Confidentiality of Alcohol and Drug Abuse Patient Records regulations: The Federal rules restrict any use of the information to criminally investigate or prosecute any alcohol or drug abuse patient.[facility] HospitalIn the event this information is protected by the Federal Confidentiality of Alcohol and Drug Abuse Patient Records regulations: The Federal rules restrict any use of the information to criminally investigate or prosecute any alcohol or drug abuse patient.[facility] HospitalIn the event this information is protected by the Federal Confidentiality of Alcohol and Drug Abuse Patient Records regulations: The Federal rules restrict any use of the information to criminally investigate or prosecute any alcohol or drug abuse patient.[facility] HospitalIn the event this information is protected by the Federal Confidentiality of Alcohol and Drug Abuse Patient Records regulations: The Federal rules restrict any use of the information to criminally investigate or prosecute any alcohol or drug abuse patient.[facility] HospitalIn the event this information is protected by the Federal Confidentiality of Alcohol and Drug Abuse Patient Records regulations: The Federal rules restrict any use of the information to criminally investigate or prosecute any alcohol or drug abuse patient.[facility] HospitalIn the event this information is protected by the Federal Confidentiality of Alcohol and Drug Abuse Patient Records regulations: The Federal rules restrict any use of the information to criminally investigate or prosecute any alcohol or drug abuse patient.[facility] HospitalIn the event this information is protected by the Federal Confidentiality of Alcohol and Drug Abuse Patient Records regulations: The Federal rules restrict any use of the information to criminally investigate or prosecute any alcohol or drug abuse patient.[facility] HospitalIn the event this information is protected by the Federal Confidentiality of Alcohol and Drug Abuse Patient Records regulations: The Federal rules restrict any use of the information to criminally investigate or prosecute any alcohol or drug abuse patient.[facility] HospitalIn the event this information is protected by the Federal Confidentiality of Alcohol and Drug Abuse Patient Records regulations: The Federal rules restrict any use of the information to criminally investigate or prosecute any alcohol or drug abuse patient.[facility] HospitalIn the event this information is protected by the Federal Confidentiality of Alcohol and Drug Abuse Patient Records regulations: The Federal rules restrict any use of the information to criminally investigate or prosecute any alcohol or drug abuse patient.[facility] HospitalIn the event this information is protected by the Federal Confidentiality of Alcohol and Drug Abuse Patient Records regulations: The Federal rules restrict any use of the information to criminally investigate or prosecute any alcohol or drug abuse patient.[facility] HospitalIn the event this information is protected by the Federal Confidentiality of Alcohol and Drug Abuse Patient Records regulations: The Federal rules restrict any use of the information to criminally investigate or prosecute any alcohol or drug abuse patient.[facility] HospitalIn the event this information is protected by the Federal Confidentiality of Alcohol and Drug Abuse Patient Records regulations: The Federal rules restrict any use of the information to criminally investigate or prosecute any alcohol or drug abuse patient.[facility] the event this information is protected by the Federal Confidentiality of Alcohol and Drug Abuse Patient Records regulations: The Federal rules restrict any use of the information to criminally investigate or prosecute any alcohol or drug abuse patient.[facility] HospitalIn the event this information is protected by the Federal Confidentiality of Alcohol and Drug Abuse Patient Records regulations: The Federal rules restrict any use of the information to criminally investigate or prosecute any alcohol or drug abuse patient.[facility] HospitalIn the event this information is protected by the Federal Confidentiality of Alcohol and Drug Abuse Patient Records regulations: The Federal rules restrict any use of the information to criminally investigate or prosecute any alcohol or drug abuse patient.[facility] the event this information is protected by the Federal Confidentiality of Alcohol and Drug Abuse Patient Records regulations: The Federal rules restrict any use of the information to criminally investigate or prosecute any alcohol or drug abuse patient.[facility] HospitalIn the event this information is protected by the Federal Confidentiality of Alcohol and Drug Abuse Patient Records regulations: The Federal rules restrict any use of the information to criminally investigate or prosecute any alcohol or drug abuse patient.[facility] HospitalIn the event this information is protected by the Federal Confidentiality of Alcohol and Drug Abuse Patient Records regulations: The Federal rules restrict any use of the information to criminally investigate or prosecute any alcohol or drug abuse patient.[facility] HospitalIn the event this information is protected by the Federal Confidentiality of Alcohol and Drug Abuse Patient Records regulations: The Federal rules restrict any use of the information to criminally investigate or prosecute any alcohol or drug abuse patient.[facility] HospitalIn the event this information is protected by the Federal Confidentiality of Alcohol and Drug Abuse Patient Records regulations: The Federal rules restrict any use of the information to criminally investigate or prosecute any alcohol or drug abuse patient.[facility] HospitalIn the event this information is protected by the Federal Confidentiality of Alcohol and Drug Abuse Patient Records regulations: The Federal rules restrict any use of the information to criminally investigate or prosecute any alcohol or drug abuse patient.[facility] HospitalIn the event this information is protected by the Federal Confidentiality of Alcohol and Drug Abuse Patient Records regulations: The Federal rules restrict any use of the information to criminally investigate or prosecute any alcohol or drug abuse patient.[facility] HospitalIn the event this information is protected by the Federal Confidentiality of Alcohol and Drug Abuse Patient Records regulations: The Federal rules restrict any use of the information to criminally investigate or prosecute any alcohol or drug abuse patient.[facility] HospitalIn the event this information is protected by the Federal Confidentiality of Alcohol and Drug Abuse Patient Records regulations: The Federal rules restrict any use of the information to criminally investigate or prosecute any alcohol or drug abuse patient.[facility] HospitalIn the event this information is protected by the Federal Confidentiality of Alcohol and Drug Abuse Patient Records regulations: The Federal rules restrict any use of the information to criminally investigate or prosecute any alcohol or drug abuse patient.[facility] HospitalIn the event this information is protected by the Federal Confidentiality of Alcohol and Drug Abuse Patient Records regulations: The Federal rules restrict any use of the information to criminally investigate or prosecute any alcohol or drug abuse patient.[facility] HospitalIn the event this information is protected by the Federal Confidentiality of Alcohol and Drug Abuse Patient Records regulations: The Federal rules restrict any use of the information to criminally investigate or prosecute any alcohol or drug abuse patient.[facility] HospitalIn the event this information is protected by the Federal Confidentiality of Alcohol and Drug Abuse Patient Records regulations: The Federal rules restrict any use of the information to criminally investigate or prosecute any alcohol or drug abuse patient.[facility] HospitalIn the event this information is protected by the Federal Confidentiality of Alcohol and Drug Abuse Patient Records regulations: The Federal rules restrict any use of the information to criminally investigate or prosecute any alcohol or drug abuse patient.[facility] HospitalIn the event this information is protected by the Federal Confidentiality of Alcohol and Drug Abuse Patient Records regulations: The Federal rules restrict any use of the information to criminally investigate or prosecute any alcohol or drug abuse patient.[facility] HospitalIn the event this information is protected by the Federal Confidentiality of Alcohol and Drug Abuse Patient Records regulations: The Federal rules restrict any use of the information to criminally investigate or prosecute any alcohol or drug abuse patient.[facility] HospitalIn the event this information is protected by the Federal Confidentiality of Alcohol and Drug Abuse Patient Records regulations: The Federal rules restrict any use of the information to criminally investigate or prosecute any alcohol or drug abuse patient.[facility] HospitalIn the event this information is protected by the Federal Confidentiality of Alcohol and Drug Abuse Patient Records regulations: The Federal rules restrict any use of the information to criminally investigate or prosecute any alcohol or drug abuse patient.[facility] HospitalIn the event this information is protected by the Federal Confidentiality of Alcohol and Drug Abuse Patient Records regulations: The Federal rules restrict any use of the information to criminally investigate or prosecute any alcohol or drug abuse patient.[facility] HospitalIn the event this information is protected by the Federal Confidentiality of Alcohol and Drug Abuse Patient Records regulations: The Federal rules restrict any use of the information to criminally investigate or prosecute any alcohol or drug abuse patient.[facility] HospitalIn the event this information is protected by the Federal Confidentiality of Alcohol and Drug Abuse Patient Records regulations: The Federal rules restrict any use of the information to criminally investigate or prosecute any alcohol or drug abuse patient.[facility] HospitalIn the event this information is protected by the Federal Confidentiality of Alcohol and Drug Abuse Patient Records regulations: The Federal rules restrict any use of the information to criminally investigate or prosecute any alcohol or drug abuse patient.[facility] HospitalIn the event this information is protected by the Federal Confidentiality of Alcohol and Drug Abuse Patient Records regulations: The Federal rules restrict any use of the information to criminally investigate or prosecute any alcohol or drug abuse patient.[facility] HospitalIn the event this information is protected by the Federal Confidentiality of Alcohol and Drug Abuse Patient Records regulations: The Federal rules restrict any use of the information to criminally investigate or prosecute any alcohol or drug abuse patient.[facility] HospitalIn the event this information is protected by the Federal Confidentiality of Alcohol and Drug Abuse Patient Records regulations: The Federal rules restrict any use of the information to criminally investigate or prosecute any alcohol or drug abuse patient.[facility] HospitalIn the event this information is protected by the Federal Confidentiality of Alcohol and Drug Abuse Patient Records regulations: The Federal rules restrict any use of the information to criminally investigate or prosecute any alcohol or drug abuse patient.[facility] HospitalIn the event this information is protected by the Federal Confidentiality of Alcohol and Drug Abuse Patient Records regulations: The Federal rules restrict any use of the information to criminally investigate or prosecute any alcohol or drug abuse patient.[facility] HospitalIn the event this information is protected by the Federal Confidentiality of Alcohol and Drug Abuse Patient Records regulations: The Federal rules restrict any use of the information to criminally investigate or prosecute any alcohol or drug abuse patient.[facility] Care Teams (unrecognized sec tion and content) Music Leader Relationship Specialty Start Date End Date Yordy Allen MD [address] [place] [address] PCP - General Family Practice 01/16/21 Music Leader Relationship Specialty Start Date End Date Yordy Allen MD [address] [place] [address] PCP - General Family Practice 01/16/21 Music Leader Relationship Specialty Start Date End Date Yordy Allen MD [address] [place] [address] PCP - General Family Practice 01/16/21 Music Leader Relationship Specialty Start Date End Date Yordy Allen MD [address] [place] [address] PCP - General Family Practice 01/16/21 Music Leader Relationship Specialty Start Date End Date Yordy Allen MD [address] [place] [address] PCP - General Family Practice 01/16/21 Music Leader Relationship Specialty Start Date End Date Yordy Allen MD [address] [place] [address] PCP - General Family Practice 01/16/21 Music Leader Relationship Specialty Start Date End Date Yordy Allen MD [address] [facility] [place] [address] PCP - General Family Practice 01/16/21 Music Leader Relationship Specialty Start Date End Date Yordy Allen MD [address] [facility] [place] [address] PCP - General Family Practice 01/16/21 Music Leader Relationship Specialty Start Date End Date Yordy Allen MD [address] [facility] [place] [address] PCP - General Family Practice 01/16/21 Music Leader Relationship Specialty Start Date End Date Yordy Allen MD [address] [facility] [place] [address] PCP - General Family Practice 01/16/21 Oneyda Guy MD [address] [address] Primary Staff Physician Cardiology 02/11/22 Music Leader Relationship Specialty Start Date End Date Yordy Allen MD [address] [place] [address] PCP - General Family Practice 01/16/21 Oneyda Guy MD [address] [facility] [address] [place] [address] Primary Staff Physician Cardiology 02/11/22 Music Leader Relationship Specialty Start Date End Date Yordy Allen MD [address] [facility] [place] [address] PCP - General Family Practice 01/16/21 Oneyda Guy MD [address] [facility] [address] [place] [address] Primary Staff Physician Cardiology 02/11/22 Music Leader Relationship Specialty Start Date End Date Yordy Allen MD [address] [place] [address] PCP - General Family Practice 01/16/21 Oneyda Guy MD [address] [address] Primary Staff Physician Cardiology 02/11/22 Music Leader Relationship Specialty Start Date End Date Yordy Allen MD [address] [place] [address] PCP - General Family Practice 01/16/21 Oneyda Guy MD [address] [address] Primary Staff Physician Cardiology 02/11/22 Music Leader Relationship Specialty Start Date End Date Yordy Allen MD [address] [place] [address] PCP - General Family Practice 01/16/21 Oneyda Guy MD [address] [address] Primary Staff Physician Cardiology 02/11/22 Music Leader Relationship Specialty Start Date End Date Yordy Allen MD [address] [place] [address] PCP - General Family Practice 01/16/21 Oneyda Guy MD [address] [address] Primary Staff Physician Cardiology 02/11/22 Music Leader Relationship Specialty Start Date End Date Yordy Allen MD [address] [place] [address] PCP - General Family Practice 01/16/21 Oneyda Guy MD [address] [address] Primary Staff Physician Cardiology 02/11/22 Music Leader Relationship Specialty Start Date End Date Yordy Allen MD [address] [place] [address] PCP - General Family Practice 01/16/21 Oneyda Guy MD [address] [address] Primary Staff Physician Cardiology 02/11/22 Music Leader Relationship Specialty Start Date End Date Yordy Allen MD [address] [place] [address] PCP - General Family Practice 01/16/21 Oneyda Guy MD [address] [address] Primary Staff Physician Cardiology 02/11/22 Music Leader Relationship Specialty Start Date End Date Yordy Allen MD [address] [place] [address] PCP - General Family Practice 01/16/21 Oneyda Guy MD [address] [address] Primary Staff Physician Cardiology 02/11/22 Music Leader Relationship Specialty Start Date End Date Yordy Allen MD [address] [place] [address] PCP - General Family Practice 01/16/21 Oneyda Guy MD [address] [address] Primary Staff Physician Cardiology 02/11/22 Music Leader Relationship Specialty Start Date End Date Yordy Allen MD [address] [place] [address] PCP - General Family Practice 01/16/21 Oneyda Guy MD [address] [address] Primary Staff Physician Cardiology 02/11/22 Music Leader Relationship Specialty Start Date End Date Yordy Allen MD [address] [place] [address] PCP - General Family Medicine 01/16/21 Oneyda Guy MD [address] [address] Primary Staff Physician Cardiology 02/11/22 Music Leader Relationship Specialty Start Date End Date Yordy Allen MD [address] [place] [address] PCP - General Family Medicine 01/16/21 Oneyda Guy MD [address] [address] Primary Staff Physician Cardiology 02/11/22 Music Leader Relationship Specialty Start Date End Date Yordy Allen MD [address] [place] [address] PCP - General Family Medicine 01/16/21 Oneyda Guy MD [address] [address] Primary Staff Physician Cardiology 02/11/22 Music Leader Relationship Specialty Start Date End Date Yordy Allen MD [address] [place] [address] PCP - General Family Medicine 01/16/21 Oneyda Guy MD [address] [address] Primary Staff Physician Cardiology 02/11/22 Music Leader Relationship Specialty Start Date End Date Yordy Allen MD [address] [place] [address] PCP - General Family Medicine 01/16/21 Oneyda Guy MD [address] [address] Primary Staff Physician Cardiology 02/11/22 Music Leader Relationship Specialty Start Date End Date Yordy Allen MD [address] [place] [address] PCP - General Family Medicine 01/16/21 [place] [address] [place] [address] Primary Staff Physician Cardiology 02/11/22 Music Leader Relationship Specialty Start Date End Date Yordy Allen MD [address] [place] [address] PCP - General Family Medicine 01/16/21 Oneyda Guy MD [address] [address] Primary Staff Physician Cardiology 02/11/22 Music Leader Relationship Specialty Start Date End Date Yordy Allen MD [address] [place] [address] PCP - General Family Medicine 01/16/21 Oneyda Guy MD [address] [address] Primary Staff Physician Cardiology 02/11/22 Music Leader Relationship Specialty Start Date End Date Yordy Allen MD [address] [place] [address] PCP - General Family Medicine 01/16/21 Oneyda Guy MD [address] [address] Primary Staff Physician Cardiology 02/11/22 Music Leader Relationship Specialty Start Date End Date Yordy Allen MD [address] [place] [address] PCP - General Family Medicine 01/16/21 Oneyda Guy MD [address] [address] Primary Staff Physician Cardiology 02/11/22 Music Leader Relationship Specialty Start Date End Date Yordy Allen MD [address] [place] [address] PCP - General Family Medicine 01/16/21 [place] [address] [place] [address] Primary Staff Physician Cardiology 02/11/22 Music Leader Relationship Specialty Start Date End Date Yordy Allen MD [address] [place] [address] PCP - General Family Medicine 01/16/21 [place] [address] [place] [address] Primary Staff Physician Cardiology 02/11/22 Music Leader Relationship Specialty Start Date End Date Yordy Allen MD [address] [place] [address] PCP - General Family Medicine 01/16/21 [place] [address] [place] [address] Primary Staff Physician Cardiology 02/11/22 Music Leader Relationship Specialty Start Date End Date Yordy Allen MD [address] [place] [address] PCP - General Family Medicine 01/16/21 Oneyda Guy MD [address] [place], [place] [id number] Primary Staff Physician Cardiology 02/11/22 Team Status: Active Member Role Status Dates Dr. Yordy Allen MD Primary Care Provider Active Team Status: Inactive Member Role Status Dates Jessika Bauer SHEEP CLIPPER, SHEEP CLIPPER-C Attending Provider Active Team Status: Inactive Member Role Status Dates Dr. Jin Parekh MD Attending Provider Active Dr. Yordy Allen MD Primary Care Provider, Referr ing Provider Active Team Status: Active Member Role Status Dates Dr. Yordy Allen MD Primary Care Provider Active Dr. Kendra Harden MD Attending Provider Activ e Team Status: Active Member Role Status Dates Dr. Yordy Allen MD Primary Care Provider Active Dr. Trevor Barajas MD Attending Provider Active Team Status: Active Member Role Status Dates Dr. Yordy Allen MD Primary Care Provider Active Dr. Jose Reeves MD Emergency Provider Active Dr. Thom Stahl MD Admit Provider, Other Provide r Active Dr. Kendra Harden MD Other Provider Active Dr. Herb Wen MD Attending Provider, Other Provi anjel Active Dr. Sukhdev Rodriguez MD Other Provider Active Team Status: Active Member Role Status Dates Dr. Yordy Allen MD Primary Care Provider Active Dr. Jose Reeves MD Emergency Provider Active Dr. Thom Stahl MD Admit Provider, Other Provide r Active Dr. Kendra Harden MD Other Provider Active Dr. Herb Wen MD Other Provider Active Dr. Sukhdev Rodriguez MD Other Provider Active Dr. Trevor Barajas MD Attending Provider Active Team Status: Inactive Member Role Status Dates Dr. Yordy Allen MD Primary Care Provider, Referr ing Provider Active Dr. Trevor Barajas MD Attending Provider Active Team Status: Active Member Role Status Dates Dr. Yordy Allen MD Primary Care Provider Active Jessika Bauer SHEEP CLIPPER, SHEEP CLIPPER-C Referring Provider, Other Pr ovider Active Dr. Jin Parekh MD Attending Provider Active Team Status: Active Member Role Status Dates Dr. Yordy Allen MD Primary Care Provider Active Jessika Bauer SHEEP CLIPPER, SHEEP CLIPPER-C Other Provider Active Dr. Kody Estrada DO Attending Provider Active Team Status: Inactive Member Role Status Dates Gilles [place] SHEEP CLIPPER, SHEEP CLIPPER-C Attending Provider Active Team Status: Inactive Member Role Status Dates Dr. Yordy Allen MD Primary Care Provider Active Dr. Jose Reeves MD Attending Provider, Emergency Provider Active Team Status: Inactive Member Role Status Dates Dr. Yordy Allen MD Primary Care Provider, Attend ing Provider Active Team Status: Inactive Member Role Status Dates Dr. Yordy Allen MD Primary Care Provider Active Jessika Bauer SHEEP CLIPPER, SHEEP CLIPPER-C Attending Provider, Referrin g Provider Active Team Status: Inactive Member Role Status Dates Dr. Yordy Allen MD Primary Care Provider Active Dr. Jose Reeves MD Emergency Provider Active Dr. Thom Stahl MD Admit Provider, Other Provide r Active Dr. Kendra Harden MD Other Provider Active Dr. Herb Wen MD Attending Provider Active Dr. Sukhdev Rodriguez MD Other Provider Active Team Status: Active Member Role Status Dates Dr. Yordy Allen MD Primary Care Provider Active Jessika Bauer SHEEP CLIPPER, SHEEP CLIPPER-C Attending Provider Active Music Leader Relationship Specialty Start Date End Date Yordy Allen MD [address] [place] [address] PCP - General Family Medicine 01/16/21 Oneyda Guy MD [address] [address] Primary Staff Physician Cardiology 02/11/22 Music Leader Relationship Specialty Start Date End Date Yordy Allen MD [address] [place] [address] PCP - General Family Medicine 01/16/21 Oneyda Guy MD [address] [address] Primary Staff Physician Cardiology 02/11/22 Music Leader Relationship Specialty Start Date End Date Yordy Allen MD [address] [place] [address] PCP - General Family Medicine 01/16/21 Oneyda Guy MD [address] [address] Primary Staff Physician Cardiology 02/11/22 Team Status: Active Member Role Status Dates Dr. Yordy Allen MD Primary Care Provider Active Jessika Bauer SHEEP CLIPPER, SHEEP CLIPPER-C Referring Provider, Other Pr ovider Active Dr. Kody Estrada DO Attending Provider Active Team Status: Inactive Member Role Status Dates Dr. Yordy Allen MD Primary Care Provider Active Jessika Bauer SHEEP CLIPPER, SHEEP CLIPPER-C Attending Provider Active Team Status: Inactive Member Role Status Dates Dr. Yordy Allen MD Primary Care Provider Active Dr. Trevor Barajas MD Attending Provider Active Music Leader Relationship Specialty Start Date End Date Yordy Allen MD [address] [place] [address] PCP - General Family Medicine 01/16/21 Oneyda Guy MD [address] [address] Primary Staff Physician Cardiology 02/11/22 Music Leader Relationship Specialty Start Date End Date Yordy Allen MD [address] [place] [address] PCP - General Family Medicine 01/16/21 Oneyda Guy MD [address] [address] Primary Staff Physician Cardiology 02/11/22 Music Leader Relationship Specialty Start Date End Date Yordy Allen MD [address] [place] [address] PCP - General Family Medicine 01/16/21 Oneyda Guy MD [address] [address] Primary Staff Physician Cardiology 02/11/22 Music Leader Relationship Specialty Start Date End Date Yordy Allen MD [address] [place], [place] [id number] PCP - General Family Medicine 01/16/21 Oneyda Guy MD [address] [facility] [address] [place], [place] [id number] Primary Staff Physician Cardiology 02/11/22 Music Leader Relationship Specialty Start Date End Date Yordy Allen MD [address] [place] [address] PCP - General Family Medicine 01/16/21 Oneyda Guy MD [address] [facility] [address] [place], [place] [id number] Primary Staff Physician Cardiology 02/11/22 Music Leader Relationship Specialty Start Date End Date Yordy Allen MD [address] [place] [address] PCP - General Family Medicine 01/16/21 Oneyda Guy MD [address] [facility] [address] [place], [place] [id number] Primary Staff Physician Cardiology 02/11/22 Team Status: Inactive Member Role Status Dates Dr. Yordy Allen MD Primary Care Provider, Referr ing Provider Active Jessika Bauer SHEEP CLIPPER, SHEEP CLIPPER-C Attending Provider Active Team Status: Inactive Member Role Status Dates Dr. Yordy Allen MD Primary Care Provider, Referr ing Provider Active Jeanette STREET, PA Attending Provider Active Team Status: Inactive Member Role Status Dates Dr. Yordy Allen MD Primary Care Provider Active Jeanette Alexis PA, PA Attending Provider, Referr ing Provider Active Team Status: Active Member Role Status Dates Dr. Yordy Allen MD Primary Care Provider Active Jeanette Alexis PA, PA Attending Provider, Referr ing Provider Active Music Leader Relationship Specialty Start Date End Date Yordy Allen MD [address] [place] [address] PCP - General Family Medicine 01/16/21 Oneyda Guy MD [address] [facility] [address] [place] [address] Primary Staff Physician Cardiology 02/11/22 Team Status: Active Member Role Status Dates Dr. Roseline Barakat MD Primary Care Provider Active Team Status: Inactive Member Role Status Dates Dr. Yordy Allen MD Referring Provider Active Jeanette Alexis PA, PA Attending Provider Active Dr. Roseline Barakat MD Primary Care Provider Active Team Status: Inactive Member Role Status Dates Dr. Yordy Allen MD Primary Care Provider, Referr ing Provider Active Dr. Roseline Barakat MD Attending Provider Active Team Status: Inactive Member Role Status Dates Dr. Yordy Allen MD Referring Provider Active Dr. Enrrique Velez MD Attending Provider Active Dr. Roseline Barakat MD Primary Care Provider Active Team Status: Active Member Role Status Dates Dr. Yordy Allen MD Primary Care Provider, Attend ing Provider Active Team Status: Inactive Member Role Status Dates Dr. Yordy Allen MD Referring Provider Active Jessika Bauer SHEEP CLIPPER, SHEEP CLIPPER-C Attending Provider Active Dr. Roseline Barakat MD Primary Care Provider Active Team Status: Inactive Member Role Status Dates Dr. Roseline Barakat MD Primary Care Provider Active Dr. Trevor Barajas MD Attending Provider Active Team Status: Inactive Member Role Status Dates Dr. Roseline Barakat MD Primary Care Pro vider, Attending Provider, Referring Provider Active Team Status: Inactive Member Role Status Dates Dr. Roseline Barakat MD Primary Care Provider Active Jessika Bauer SHEEP CLIPPER, SHEEP CLIPPER-C Attending Provider, Referrin g Provider Active Team Status: Inactive Member Role Status Dates Dr. Roseline Barakat MD Primary Care Provider Active Jeanette Alexis PA, PA Attending Provider, Referr ing Provider Active Team Status: Active Member Role Status Dates Dr. Roseline Barakat MD Primary Care Provider, Attendi ng Provider Active Team Status: Active Member Role Status Dates Dr. Roseline Barakat MD Primary Care Provider Active Dr. Trevor Barajas MD Attending Provider Active Team Status: Inactive Member Role Status Dates Dr. Roseline Barakat MD Primary Care Provider, Referri ng Provider Active Jeanette Alexis PA, PA Attending Provider Active Team Status: Inactive Member Role Status Dates Dr. Roseline Barakat MD Primary Care Provider Active Dr. Trevor Barajas MD Attending Provider, Referring Pro vider Active Music Leader Relationship Specialty Start Date End Date Yordy Allen MD [address] [place] [address] PCP - General Family Medicine 01/16/21 Oneyda Guy MD [address] [facility] [place] [address] Primary Staff Physician Cardiology 02/11/22 Team Status: Active Member Role Status Dates Dr. Yordy Allen MD Referring Provider Active Dr. Enrrique Velez MD Attending Provider Active Dr. Roseline Barakat MD Primary Care Provider Active Team Status: Active Member Role Status Dates Dr. Roseline Barakat MD Primary Care Provider Active Jeanette Alexis PA, PA Attending Provider, Referr ing Provider Active Team Status: Inactive Member Role Status Dates Dr. Roseline Barakat MD Primary Care Provider Active Start: August 25, 2024 End: August 25, 2024 Dr. Trevor Barajas MD Attending Provider Active S tart: August 25, 2024 End: August 25, 2024 Team Status: Inactive Member Role Status Dates Dr. Roseline Barakat MD Primary Care Provider Active Start: September 08, 2024 End: September 08, 2024 Dr. Trevor Barajas MD Attending Provider Active S tart: September 08, 2024 End: September 08, 2024 Team Status: Inactive Member Role Status Dates Dr. Roseline Barakat MD Primary Care Provider Active Start: September 14, 2024 End: September 14, 2024 Dr. Enrrique Velez MD Attending Provider Active Sta rt: September 14, 2024 End: September 14, 2024 Dr. Enrrique Velez MD Referring Provider Active Sta rt: September 14, 2024 End: September 14, 2024 Team Status: Inactive Member Role Status Dates Dr. Roseline Barakat MD Primary Care Provider Active Start: October 11, 2024 End: October 11, 2024 Dr. Trevor Barajas MD Attending Provider Active S tart: October 11, 2024 End: October 11, 2024 Team Status: Inactive Member Role Status Dates Dr. Roseline Barakat MD Primary Care Provider Active Start: October 19, 2024 End: October 19, 2024 Dr. Roseline Barakat MD Attending Provider Active Start: October 19, 2024 End: October 19, 2024 Dr. Roseline Barakat MD Referring Provider Active Start: October 19, 2024 End: October 19, 2024 Team Status: Active Member Role Status Dates Dr. Roseline Barakat MD Primary Care Provider Active Start: October 30, 2024 Dr. Roseline Barakta MD Attending Provider Active Start: October 30, 2024 Team Status: Inactive Member Role Status Dates Dr. Roseline Barakat MD Primary Care Provider Active Start: November 19, 2024 End: November 19, 2024 Dr. Trevor Barajas MD Attending Provider Active S tart: November 19, 2024 End: November 19, 2024 Team Status: Inactive Member Role Status Dates Dr. Roseline Barakat MD Primary Care Provider Active Start: November 27, 2024 End: November 27, 2024 Dr. Trevor Barajas MD Attending Provider Active S tart: November 27, 2024 End: November 27, 2024 Team Status: Inactive Member Role Status Dates Dr. Roseline Barakat MD Primary Care Provider Active Start: December 07, 2024 End: December 07, 2024 Kong Pardo SHEEP CLIPPER, SHEEP CLIPPER-C Attending Provider Active S tart: December 07, 2024 End: December 07, 2024 Kong Pardo SHEEP CLIPPER, SHEEP CLIPPER-C Referring Provider Active S tart: December 07, 2024 End: December 07, 2024 Team Status: Inactive Member Role Status Dates Dr. Roseline Barakat MD Primary Care Provider Active Start: December 12, 2024 End: December 12, 2024 Dr. Trevor Barajas MD Attending Provider Active S tart: December 12, 2024 End: December 12, 2024 Team Status: Inactive Member Role Status Dates Dr. Roseline Barakat MD Primary Care Provider Active Start: December 12, 2024 End: December 12, 2024 Dr. Roseline Barakat MD Referring Provider Active Start: December 12, 2024 End: December 12, 2024 Jada Rodriguez Attending Provider Active Start: A 2024 End: December 12, 2024 Team Status: Inactive Member Role Status Dates Dr. Roseline Barakat MD Primary Care Provider Active Start: December 12, 2024 End: December 12, 2024 Dr. Roseline Barakat MD Referring Provider Active Start: December 12, 2024 End: December 12, 2024 Dr. Trevor Barajas MD Attending Provider Active S tart: December 12, 2024 End: December 12, 2024 Team Status: Inactive Member Role Status Dates Dr. Roseline Barakat MD Primary Care Provider Active Start: December 18, 2024 End: December 18, 2024 Dr. Trevor Barajas MD Attending Provider Active S tart: December 18, 2024 End: December 18, 2024 Team Status: Inactive Member Role Status Dates Dr. Roseline Barakat MD Primary Care Provider Active Start: January 01, 2025 End: January 01, 2025 Dr. Trevor Barajas MD Attending Provider Active S tart: January 01, 2025 End: January 01, 2025 Team Status: Inactive Member Role Status Dates Dr. Roseline Barakat MD Primary Care Provider Active Start: January 08, 2025 End: January 08, 2025 Dr. Trevor Barajas MD Attending Provider Active S tart: January 08, 2025 End: January 08, 2025 Team Status: Inactive Member Role Status Dates Dr. Roseline Barakat MD Primary Care Provider Active Start: January 09, 2025 End: January 09, 2025 Dr. Roseline Barakat MD Referring Provider Active Start: January 09, 2025 End: January 09, 2025 Jessika Bauer SHEEP CLIPPER, SHEEP CLIPPER-C Attending Provider Active Start: January 09, 2025 End: January 09, 2025 Team Status: Inactive Member Role Status Dates Dr. Roseline Barakat MD Primary Care Provider Active Start: January 10, 2025 End: January 10, 2025 Dr. Trevor Barajas MD Attending Provider Active S tart: January 10, 2025 End: January 10, 2025 Team Status: Active Member Role Status Dates Dr. Roseline Barakat MD Primary Care Provider Active Start: January 15, 2025 Dr. Trevor Barajas MD Attending Provider Active S tart: January 15, 2025 Team Status: Active Member Role Status Dates Dr. Roseline Barakat MD Primary Care Provider Active Start: January 25, 2025 Dr. Ady Lizarraga , Emergency Provider Active Start: January 25, 2025 Dr. Renée Fields MD Attending Provider Active Start: January 25, 2025 Team Status: Active Member Role Status Dates Dr. Roseline Barakat MD Primary Care Provider Active Start: January 25, 2025 Dr. Ady Lizarraga DO Emergency Provider Active Start: January 25, 2025 Dr. Renée Fields MD Admit Provider Active St art: January 25, 2025 Dr. Renée Fields MD Attending Provider Active Start: January 25, 2025 Team Status: Inactive Member Role Status Dates Dr. Roseline Barakat MD Primary Care Provider Active Start: January 15, 2025 End: January 15, 2025 Dr. Trevor Barajas MD Attending Provider Active S tart: January 15, 2025 End: January 15, 2025 Team Status: Active Member Role Status Dates Dr. Roseline Barakat MD Primary Care Provider Active Start: January 25, 2025 Dr. Ady Lizarraga DO Emergency Provider Active Start: January 25, 2025 Dr. Renée Fields MD Admit Provider Active St art: January 25, 2025 Dr. Renée Fields MD Attending Provider Active Start: January 25, 2025 Edu Fletcher MD Other Provider Active Start: Md javed 2024 Dr. Concepcion Rosenberg MD Other Provider Active Start: January 25, 2025 Mel Ochoa MD Other Provider Active Start : January 25, 2025 Dr. Ele Matthews DO Other Provider Active St art: January 25, 2025 Dr. Jenelle Henson MD Other Provider Active Start: January 25, 2025 Dr. Ian Smith MD Other Provider Active Sta rt: January 25, 2025 Dr. Jaylin Mchugh MD Other Provider Active Start : January 25, 2025 Dr. Delvis Latham MD Other Provider Active Start: January 25, 2025 Dr. Julia Vázquez MD Other Provider Active Start : January 25, 2025 Dr. Joshua Brito MD Other Provider Active Sta rt: January 25, 2025 Lelo Zurita MD Other Provider Active Start : January 25, 2025 Dr. Monty Mcgrath MD Other Provider Active St art: January 25, 2025 Dr. Yanique Goins MD Other Provider Active Start : January 25, 2025 Dr. Sy Heath MD Other Provider Active Sta rt: January 25, 2025 Dr. Keke Underwood MD Other Provider Active Start: January 25, 2025 Dr. Jose Collins MD Other Provider Active St art: January 25, 2025 Dr. Angelica Escobar MD Other Provider Active Star t: January 25, 2025 Dr. Trino Lind MD Other Provider Active St art: January 25, 2025 Dr. Lauren Falcon MD Other Provider Active Start: January 25, 2025 Jourdan Brice MD Other Provider Active Start: January 25, 2025 Team Status: Inactive Member Role Status Dates Dr. Roseline Barakat MD Primary Care Provider Active Start: January 25, 2025 End: January 26, 2025 Dr. Ady Lizarraga DO Emergency Provider Active Start: January 25, 2025 End: January 26, 2025 Dr. Renée Fields MD Admit Provider Active St art: January 25, 2025 End: January 26, 2025 Dr. Renée Fields MD Other Provider Active St art: January 25, 2025 End: January 26, 2025 Edu Fletcher MD Other Provider Active Start: [facility] 2024 End: January 26, 2025 Dr. Concepcion Rosenberg MD Other Provider Active Start: January 25, 2025 End: January 26, 2025 Mel Ochoa MD Other Provider Active Start : January 25, 2025 End: January 26, 2025 Dr. Ele Matthews DO Other Provider Active St art: January 25, 2025 End: January 26, 2025 Dr. Jenelle Henson MD Other Provider Active Start: January 25, 2025 End: January 26, 2025 Dr. Ian Smith MD Other Provider Active Sta rt: January 25, 2025 End: January 26, 2025 Dr. Jaylin Mchugh MD Other Provider Active Start : January 25, 2025 End: January 26, 2025 Dr. Delvis Latham MD Other Provider Active Start: January 25, 2025 End: January 26, 2025 Dr. Julia Vázquez MD Other Provider Active Start : January 25, 2025 End: January 26, 2025 Dr. Joshua Brito MD Other Provider Active Sta rt: January 25, 2025 End: January 26, 2025 Lelo Zurita MD Other Provider Active Start : January 25, 2025 End: January 26, 2025 Dr. Monty Mcgrath MD Other Provider Active St art: January 25, 2025 End: January 26, 2025 Dr. Yanique Goins MD Other Provider Active Start : January 25, 2025 End: January 26, 2025 Dr. Sy Heath MD Other Provider Active Sta rt: January 25, 2025 End: January 26, 2025 Dr. Keke Underwood MD Other Provider Active Start: January 25, 2025 End: January 26, 2025 Dr. Jose Collins MD Other Provider Active St art: January 25, 2025 End: January 26, 2025 Dr. Angelica Escobar MD Other Provider Active Star t: January 25, 2025 End: January 26, 2025 Dr. Trino Lind MD Other Provider Active St art: January 25, 2025 End: January 26, 2025 Dr. Lauren Falcon MD Other Provider Active Start: January 25, 2025 End: January 26, 2025 Jourdan Brice MD Other Provider Active Start: January 25, 2025 End: January 26, 2025 Dr. Yordy Warren DO Attending Provider Active Start: January 25, 2025 End: January 26, 2025 Team Status: Active Member Role Status Dates Dr. Roseline Barakat MD Primary Care Provider Active Start: January 26, 2025 Dr. Trevor Barajas MD Attending Provider Active S tart: January 26, 2025 Team Status: Active Member Role Status Dates Dr. Roseline Barakat MD Primary Care Provider Active Start: January 26, 2025 Dr. Ady Lizarraga DO Emergency Provider Active Start: January 26, 2025 Dr. Renée Fields MD Admit Provider Active St art: January 26, 2025 Dr. Renée Fields MD Other Provider Active St art: January 26, 2025 Edu Fletcher MD Other Provider Active Start: Md 2024 Dr. Concepcion Rosenberg MD Other Provider Active Start: January 26, 2025 Mel Ochoa MD Other Provider Active Start : January 26, 2025 Dr. Ele Matthews DO Other Provider Active St art: January 26, 2025 Dr. Jenelle Henson MD Other Provider Active Start: January 26, 2025 Dr. Ian Smith MD Other Provider Active Sta rt: January 26, 2025 Dr. Jaylin Mchugh MD Other Provider Active Start : January 26, 2025 Dr. Delvis Latham MD Other Provider Active Start: January 26, 2025 Dr. Julia Vázquez MD Other Provider Active Start : January 26, 2025 Dr. Joshua Brito MD Other Provider Active Sta rt: January 26, 2025 Lelo Zurita MD Other Provider Active Start : January 26, 2025 Dr. Monty Mcgrath MD Other Provider Active St art: January 26, 2025 Dr. Yanique Goins MD Other Provider Active Start : January 26, 2025 Dr. Sy Heath MD Other Provider Active Sta rt: January 26, 2025 Dr. Keke Underwood MD Other Provider Active Start: January 26, 2025 Dr. Jose Collins MD Other Provider Active St art: January 26, 2025 Dr. Angelica Escobar MD Other Provider Active Star t: January 26, 2025 Dr. Trino Lind MD Other Provider Active St art: January 26, 2025 Dr. Lauren Falcon MD Other Provider Active Start: January 26, 2025 Jourdan Brice MD Other Provider Active Start: January 26, 2025 Dr. Yordy Warren , DO Attending Provider Active Start: January 26, 2025 Dr. Yordy Warren , DO Other Provider Active S tart: January 26, 2025 Team Status: Active Member Role Status Dates Dr. Roseline Barakat MD Primary Care Provider Active Start: February 08, 2025 Jeanette Alexis PA, PA Attending Provider Active Start: February 08, 2025 Jeanette Alexis PA, PA Referring Provider Active Start: February 08, 2025 Team Status: Inactive Member Role Status Dates Dr. Roseline Barakat MD Primary Care Provider Active Start: February 08, 2025 End: February 08, 2025 Dr. Roseline Barakat MD Referring Provider Active Start: February 08, 2025 End: February 08, 2025 Jessika Bauer SHEEP CLIPPER, SHEEP CLIPPER-C Attending Provider Active Start: February 08, 2025 End: February 08, 2025 Team Status: Inactive Member Role Status Dates Dr. Roesline Barakat MD Primary Care Provider Active Start: February 08, 2025 End: February 08, 2025 Jeanette Alexis PA PA Attending Provider Active Start: February 08, 2025 End: February 08, 2025 Jeanette Alexis PA, PA Referring Provider Active Start: February 08, 2025 End: February 08, 2025 Team Status: Inactive Member Role Status Dates Dr. Roseline Barakat MD Primary Care Provider Active Start: January 31, 2025 End: January 31, 2025 Dr. Trevor Barajas MD Attending Provider Active S tart: January 31, 2025 End: January 31, 2025 Team Status: Active Member Role Status Dates Dr. Roseline Barakat MD Primary Care Provider Active Start: February 12, 2025 Dr. Roseline Barakat MD Attending Provider Active Start: February 12, 2025 Team Status: Inactive Member Role Status Dates Dr. Roseline Barakat MD Primary Care Provider Active Start: February 14, 2025 End: February 14, 2025 Dr. Trevor Barajas MD Attending Provider Active S tart: February 14, 2025 End: February 14, 2025 Team Status: Active Member Role Status Dates Dr. Roseline Barakat MD Primary Care Provider Active Start: February 19, 2025 Dr. Roseline Barakat MD Attending Provider Active Start: February 19, 2025 Team Status: Active Member Role Status Dates Dr. Roseline Barakat MD Primary Care Provider Active Start: February 22, 2025 Jessika Bauer SHEEP CLIPPER, SHEEP CLIPPER-C Attending Provider Active Start: February 22, 2025 Jessika Bauer SHEEP CLIPPER, SHEEP CLIPPER-C Referring Provider Active Start: February 22, 2025 Team Status: Active Member Role Status Dates Dr. Roseline Barakat MD Primary Care Provider Active Start: February 23, 2025 Jessika Bauer SHEEP CLIPPER, SHEEP CLIPPER-C Attending Provider Active Start: February 23, 2025 Jessika Bauer SHEEP CLIPPER, SHEEP CLIPPER-C Referring Provider Active Start: February 23, 2025 Team Status: Active Member Role Status Dates Dr. Roseline Barakat MD Primary Care Provider Active Start: February 27, 2025 Dr. Roseline Barakat MD Attending Provider Active Start: February 27, 2025 Team Status: Inactive Member Role Status Dates Dr. Roseline Barakat MD Primary Care Provider Active Start: February 22, 2025 End: February 22, 2025 Jessika Bauer SHEEP CLIPPER, SHEEP CLIPPER-C Attending Provider Active Start: February 22, 2025 End: February 22, 2025 Jessika Bauer SHEEP CLIPPER, SHEEP CLIPPER-C Referring Provider Active Start: February 22, 2025 End: February 22, 2025 Team Status: Inactive Member Role Status Dates Dr. Roseline Barakat MD Primary Care Provider Active Start: February 23, 2025 End: February 23, 2025 Jessika Bauer SHEEP CLIPPER, SHEEP CLIPPER-C Attending Provider Active Start: February 23, 2025 End: February 23, 2025 Jessika Bauer SHEEP CLIPPER, SHEEP CLIPPER-C Referring Provider Active Start: February 23, 2025 End: February 23, 2025 Team Status: Active Member Role Status Dates Dr. Roseline Barakat MD Primary Care Provider Active Start: March 01, 2025 Dr. Roseline Barakat MD Attending Provider Active Start: March 01, 2025 Team Status: Active Member Role Status Dates Dr. Roseline Barakat MD Primary Care Provider Active Start: March 06, 2025 Jessika Bauer SHEEP CLIPPER, SHEEP CLIPPER-C Attending Provider Active Start: March 06, 2025 Team Status: Inactive Member Role Status Dates Dr. Roseline Barakat MD Primary Care Provider Active Start: March 06, 2025 End: March 06, 2025 Dr. Roseline Barakat MD Referring Provider Active Start: March 06, 2025 End: March 06, 2025 YENIFER Hernandez Attending Provider Active St art: March 06, 2025 End: March 06, 2025 Team Status: Active Member Role Status Dates Dr. Roseline Barakat MD Primary Care Provider Active Start: March 06, 2025 YENIFER Hernandez Attending Provider Active St art: March 06, 2025 YENIFER Hernandez Referring Provider Active St art: March 06, 2025 Reason for Visit (unrecogniz ed section and content) Reason Comments Patient Update Reason Comments EGD reschedule at Reason Comments Anticoagulation Reason Comments Recheck Reason Comments Schedule Surgery Reason Onset Date Comments community monitoring outreach 01/15/2022 In sight introduction Reason Onset Date Comments Refill Request 01/16/2022 Reason Onset Date Comments community monitoring outreach 01/20/2022 In sight introduction Reason Onset Date Comments community monitoring outreach 01/20/2022 In sight introduciton Reason Onset Date Comments Anticoagulation 02/02/2022 Reason Comments Shortness of Breath Leg Edema Palpitations Reason Comments Patient Question remote monitoring Reason Onset Date Comments Refill Request 03/30/2022 Reason Onset Date Comments Transition Of Care 05/15/2022 initial encou nter post hospital discharge 05/14/22 Reason Onset Date Comments Schedule Surgery 05/21/2022 Reason Comments Follow Up Phone Call [facility] follow up call Third attempt Reason Comments Appointment Asking to change obie t time Reason Comments Appointment Reason Comments Patient Question Got a call requestin g permission to do additional studies on patient suffering from severe sleep apnea Reason Comments Cardiology Follow Up Procedure Ablation Reason Onset Date Comments Refill Request 09/09/2022 Reason Onset Date Comments Opened In Error 09/15/2022 Reason Onset Date Comments cdm 09/16/2022 enrollment Reason Comments Cardiology Follow Up Hypertension Reason Onset Date Comments Anticoagulation 11/17/2022 Reason Comments Opened In Error Reason Comments Follow Up Reason Comments Patient Update Patient called state s she is transferring care to [facility] and wants records transfer to that location. Please call her at [phone] Reason Onset Date Comments Population Health Navigation Outreach 01/07/2023 HCC GAP Reason Onset Date Comments cdm 11/10/2023 enrollment Goals (unrecognized section and content) Goals may be documented in a n alternate sectionGoals may be documented in an alternate sectionGoals may be documented in an alternate sectionGoals may be documented in an alternate sectionGoals may be documented in an alternate sectionGoals may be documented in an alternate sectionGoals may be documented in an alternate sectionGoals may be documented in an alternate sectionGoals may be documented in an alternate sectionGoals may be documented in an alternate sectionGoals may be documented in an alternate sectionGoals may be documented in an alternate sectionGoals may be documented in an alternate sectionGoals may be documented in an alternate sectionGoals may be documented in an alternate sectionGoals may be documented in an alternate sectionGoals may be documented in an alternate section FOR RECORDS PERTAINING TO PATIENTS WHO ARE OR HAVE BEEN ENROLLED IN A CHEMICAL DEPENDENCY/SUBSTANCEABUSE PROGRAM, SOME INFORMATION MAY BE OMITTED. This clinical summary was aggregated from multiple sources. Caution should be exercised in using it in the provision of clinical care. This summary normalizes information from multiple sources, and as a consequence, information in this document may materially change the coding, format and clinical context of patient data. In addition, data may be omitted in some cases. CLINICAL DECISIONS SHOULD BE BASED ON THE PRIMARY CLINICAL RECORDS. [facility]. provides no warranty or guarantee of the accuracy or completeness of information in this document.
== END | disposition home or self-care (01) ==
LOC: SL 11:39
PROVIDERS: PCP Internal Medicine; Visit Provider Nurse Practitioner Acute Care
DX: Z00.00 Encounter for general adult medical examination without abnormal findings (principal)

== ENCOUNTER → 2025-04-13 | Outpatient (CLI) | payer MEDICARE, OTHER, SELFPAY ==
[2025-04-13 17:55] LABS: Anion Gap 12 (5-15); BUN 35 mg/dL (4-19); BUN/Creat Ratio 21.5 RATIO (10-20); Calcium,Total 9.4 mg/dL (7.6-11.0); Carbon Dioxide 25.1 mmol/L (21.0-32.0); Chloride 101 mmol/L (98-108); Glucose 105 mg/dL (70-99); Potassium 3.6 mmol/L (3.3-5.1); Pro- Brain NATRIURETIC PEPTIDE 3343 pg/mL (<=900)
== END | disposition home or self-care (01) ==
LOC: LAB 16:37
PROVIDERS: PCP Internal Medicine; Referring Provider Student in an Organized Health Care Education/Training Program; Visit Provider Student in an Organized Health Care Education/Training Program
DX: R06.02 Shortness of breath (principal); Z51.81 Encounter for therapeutic drug level monitoring; Z79.899 Other long term (current) drug therapy
CPT/HCPCS: 36415; 80048; 83880

== ENCOUNTER → 2025-05-28 | Outpatient (CLI) | payer MEDICARE, OTHER, SELFPAY ==
[2025-05-28 17:52] LABS: T3 Total - Triiodothyronine 1.05 ng/mL (0.80-2.00)
== END | disposition home or self-care (01) ==
PROVIDERS: PCP Internal Medicine; Referring Provider Internal Medicine; Visit Provider Internal Medicine
DX: E04.2 Nontoxic multinodular goiter (principal)
CPT/HCPCS: 36415; 84439; 84443; 84480

== ENCOUNTER 2025-06-05 12:22 | Inpatient (IN) | payer MEDICARE, OTHER, SELFPAY ==
[2025-06-05] VITALS (17 sets, daily range): BP systolic 76–121; BP diastolic 56–78; PULSE 69–77; RESP 16–24; TEMP 36.6–37.2; O2SAT 92–99; BMI 20.9; BMI 21.5; BMI 21.4
--- NOTE | 2025-06-05 12:32 | EDS_ITS ---
HPI History of Present Illness Chief Complaint: Stroke Alert Detail of Chief Complaint: Difficulty with speech and concern for stroke Informant: patient and family Narrative Narrative: Patient presents to the emergency department with difficulty with speech and concern for stroke. Last known well was last evening around 9 PM. This morning she woke up at 9 AM and had some slurred speech. Patient on Coumadin for history of mechanical heart valve. History of TIAs. Patient denies falls or headaches. INR yesterday per daughter was 4.3. Denies recent illness. Patient denies focal weakness but daughter has noticed that she seems somewhat off balance today. Patient denies headache. 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) Warfarin-induced coagulopathy Hypoxia Congestive heart failure Collar bone fracture Pacemaker A-fib Hypertrophic cardiomyopathy Home Medications ?Medication ?Instructions ?Recorded ?Last Taken ?Type spacer #1 ea 11/26/22 Unknown Rx warfarin 1 mg tablet 1 mg PO .COMPLEX blood thinn er 12/03/22 Unknown History spironolactone 25 mg tablet 25 mg PO DAILY diuretic #9 0 tabs 12/12/24 01/24/25 Rx warfarin 5 mg tablet 5 mg PO DAILY blood thinner #100 01/04/25 01/24/25 Rx tabs albuterol sulfate 90 mcg/actuation 2 puff inhalation Q 4H PRN 01/09/25 Unknown Rx aerosol inhaler shortness of breath or wheez ing #8.5 grams budesonide-formoterol HFA 160 2 inh inhalation BID #1 ea 01/09/25 01/24/25 Rx mcg-4.5 mcg/actuation aerosol inhaler (Symbicort) torsemide 20 mg tablet 20 mg PO DAILY #180 tabs 01/24/25 Rx albuterol sulfate 2.5 mg/3 mL 2.5 mg (3 mL) inhalation Q4H PRN 02/08/25 Unknown Rx (0.083 %) solution for nebulization Sob &/Or Wheezing #180 mL dapagliflozin propanediol 10 mg 10 mg PO DAILY diabete s #90 tabs 02/14/25 Unknown Rx tablet (Farxiga) Disability Parking Placard #1 ea 05/07/25 Unknown Rx pantoprazole 40 mg tablet,delayed 40 mg PO QDAY #90 ta bs 05/09/25 Unknown Rx release duloxetine 20 mg capsule,delayed 20 mg PO QDAY #60 cap s 05/31/25 Unknown Rx release metoprolol succinate 100 mg 50 mg PO QDAY blood pressu re 05/31/25 Unknown History tablet,extended release 24 hr Allergy/AdvReac Type Severity Reaction Status Date / Time No Known Allergies Allergy Verified 06/05/25 12:30 Family History Father Heart disease Grandmother Breast cancer Mother Heart disease Surgical History H/O cataract removal with insertion of prosthetic lens History of mitral valve replacement with mechanical valve Status post spinal disc removal History of hysterectomy Social History household members: family current occupation: works in a [employer] Smoking Status: Former smoker quit date: 09/13/83 pack-years: 1 Electronic Cigarette Use: not used how long ago did patient quit smokin years ago alcohol intake: current details: beer, on occasion substance use type: former substance user caffeine: Yes seatbelt use: always do you feel safe at home: Yes ROS ROS ED Review of Systems ROS Unobtainable: other Constitutional Constitutional ED: Reports lethargy; Denies chills, fever(s), sweats or weight loss Eyes Eyes: Denies blurry vision, change in vision or diplopia ENT ENT ED: Denies rhinorrhea or sore throat Cardiovascular Cardiovascular: Reports racing heartbeat; Denies chest pain or orthopnea Respiratory/Chest Respiratory/Chest: Denies cough, dyspnea, dyspnea on exertion, orthopnea or sputum Gastrointestinal Gastrointestinal: Denies abdominal pain, diarrhea, nausea or vomiting Genitourinary Genitourinary ED: Denies dysuria, hematuria or urinary frequency Musculoskeletal Musculoskeletal: Denies arthralgias, back pain, myalgias or neck pain Integumentary Denies abscess, Abrasions or rash Neurologic Neurologic: Reports other Details: Slurred speech ; Denies headache(s) or weakness Psychiatric Psychiatric: Denies anxiety, depression or suicidal thoughts Endocrine Endocrinology: Denies polydipsia, polyphagia or polyuria Hematologic/Lymphatic Hematologic/Lymphatic: Denies easy bleeding, easy bruising or lymphadenopathy Allergic/Immunologic Allergic/Immunologic ED: Denies mouth swelling, tongue swelling or urticaria EXAM Physical Exam Const Vital Signs: 06/05/25 12:24 06/05/25 12:29 Temperature 97.9 F Temperature Source Temporal Pulse Rate 75 Respiratory Rate 16 Blood Pressure 76/64 L 76/64 L Blood Pressure Mean 68 68 Pulse Ox 96 96 Oxygen Delivery Method Room Air Room Air Positive well nourished and well developed General Appearance ED: well developed and NAD HEENT Reports TM's clear and moist mucous membranes normocephalic and atraumatic; Negative for trauma or tenderness Tympanic Membrane ED: Yes TM's clear Eyes PERRL and EOMs intact bilaterally General Eye ED: Negative for pale conjunctiva or scleral icterus Neck no lymphadenopathy, supple and no JVD General: Negative for tenderness Chest Wall inspection of chest normal and palpation of chest normal Chest: Negative for tenderness Resp normal respiratory effort and clear to auscultation bilaterally Effort and Inspection: Negative for respiratory distress or pain with movement Auscultation: Negative for rhonchi, wheezes or diminished lung sounds Cardio regular rate, regular rhythm, S1 normal heart sound, S2 normal heart sound and no murmurs Peripheral Pulses: pulses 2+ throughout GI normal to inspection, nondistended, normoactive bowel sounds, soft to palpation, non-tender, non-distended and no masses Back/Spine no CVA tenderness and no thoracic nor lumbar tenderness Extremity normal to inspection General Extremety ED: Negative for edema General Extremity: Negative for edema Neuro oriented x3, CN's II-XII intact bilaterally, no sensory deficits noted and gait normal Neuro Narrative: No focal weakness on exam. She does have some dysarthria. NIH stroke scale initially was 2 given the dysarthria. No facial droop noted. No ataxia noted. Patient ambulated in the department Sensorium / Orientation: awake, alert, oriented to person, oriented to place and oriented to time Motor Exam: strength 5/5 throughout and strength abnormal Psych mental status grossly normal Skin no rashes or lesions noted and no wounds MDM MDM MDM Narrative Medical decision making narrative: Patient presents with strokelike symptoms with history of Coumadin for artificial heart valve. INR yesterday 4.3. Patient woke up with symptoms and is not a thrombolytic candidate. Will obtain CT brain imaging to rule out intracranial hemorrhage versus other acute process. Will also order CTA head and neck. Will obtain labs. Discharge Plan Triage Chief Complaint: Stroke Alert ED Provider: Ray Callaway Dx/Rx/DC Orders Prescriptions: No Action warfarin 1 mg tablet 1 mg PO .COMPLEX Protocol: Dose Management Condition: Wednesday Dose/Route: 5 mg Instruction: 1 x 5 mg tablet Condition: Wednesday Dose/Route: 5 mg Instruction: 1 x 5 mg tablet Condition: Wednesday Dose/Route: 5 mg Instruction: 1 x 5 mg tablet Condition: Wednesday Dose/Route: 10 mg Instruction: 2 x 5 mg tablets Condition: Dose/Route: 5 mg Instruction: 1 x 5 mg tablet Condition: Wednesday Dose/Route: 5 mg Instruction: 1 x 5 mg tablet Condition: Wednesday Dose/Route: 5 mg Instruction: 1 x 5 mg tablet Protocol Text: Adjustment Start Date: Wednesday04/30/25 INR Value: 3.4 INR Date: 04/30/25 Recheck Date: 05/07/25 Rx Instructions: 1 mg orally as directed for dose changes; Managed by PCP spironolactone 25 mg tablet 25 mg PO DAILY Qty: 90 3RF Rx Instructions: Hold for serum potassium more than 5.0 albuterol sulfate 90 mcg/actuation HFA aerosol inhaler 2 puff inhalation Q4H PRN (Reason: shortness of breath or wheezing) Qty: 8.5 11RF budesonide-formoterol [Symbicort] 160-4.5 mcg/actuation HFA aerosol inhaler 2 inh inhalation BID Qty: 1 11RF Rx Instructions: administer with spacer, rinse mouth after each use albuterol sulfate 2.5 mg /3 mL (0.083 %) solution for nebulization 2.5 mg inhalation Q4H PRN (Reason: Sob &/Or Wheezing) Qty: 180 3RF metoprolol succinate 100 mg tablet extended release 24 hr 50 mg PO QDAY duloxetine 20 mg capsule,delayed release(DR/EC) 20 mg PO QDAY Qty: 60 0RF torsemide 20 mg tablet 20 mg PO DAILY Qty: 180 3RF (DME) spacer See Rx Instructions .ROUTE .MEDSUPPLY Qty: 1 0RF Rx Instructions: As directed warfarin 5 mg tablet 5 mg PO DAILY Qty: 100 3RF Protocol: Dose Management Condition: Wednesday Dose/Route: 5 mg Instruction: 1 x 5 mg tablet Condition: Wednesday Dose/Route: 5 mg Instruction: 1 x 5 mg tablet Condition: Wednesday Dose/Route: 5 mg Instruction: 1 x 5 mg tablet Condition: Wednesday Dose/Route: 10 mg Instruction: 2 x 5 mg tablets Condition: Dose/Route: 5 mg Instruction: 1 x 5 mg tablet Condition: Wednesday Dose/Route: 5 mg Instruction: 1 x 5 mg tablet Condition: Wednesday Dose/Route: 5 mg Instruction: 1 x 5 mg tablet Protocol Text: Adjustment Start Date: Wednesday04/30/25 INR Value: 3.4 INR Date: 04/30/25 Recheck Date: 05/07/25 Patient Comments: daughter states takes 5mg daily and occasionally gets bumped up to 7.5mg but not often Rx Instructions: Take 1 tab (5mg) Wed/Wed/Wed/Wed/Wed and 0.5 tab (2.5mg) /.; or use as directed dapagliflozin propanediol [Farxiga] 10 mg tablet 10 mg PO DAILY Qty: 90 3RF (DME) Disability Parking Placard See Rx Instructions .Route .MEDSUPPLY Qty: 1 0RF Rx Instructions: As directed pantoprazole 40 mg tablet,delayed release (DR/EC) 40 mg PO QDAY Qty: 90 3RF Primary Care Provider: Roseline Barakat Referrals: Roseline Barakat MD [Primary Care Provider, Internal Medicine] Print Language: Serbian
--- NOTE | 2025-06-05 12:32 | EKG12_ITS ---
Test Reason : STRKE ALERT Blood Pressure : */* mmHG Vent. Rate : 70 BPM Atrial Rate : 70 BPM P-R Int : 226 ms QRS Dur : 158 ms QT Int : 506 ms P-R-T Axes : * -50 76 degrees QTcB Int : 546 ms AV dual-paced rhythm with prolonged AV conduction Biventricular pacemaker detected Abnormal ECG Confirmed by SERA ENRIQUEZ, JUSTIN ([id number]), sports editor ALONZO MAK ([id number]) on 06/06/2025 5:59:14 AM Referred By: Confirmed By: JUSTIN ZAMORA MD
--- NOTE | 2025-06-05 12:32 | ED.VIS.STROK ---
HPI History of Present Illness Chief Complaint: Stroke Alert Detail of Chief Complaint: Difficulty with speech and concern for stroke Informant: patient and family Narrative Narrative: Patient presents to the emergency department with difficulty with speech and concern for stroke. Last known well was last evening around 9 PM. This morning she woke up at 9 AM and had some slurred speech. Patient on Coumadin for history of mechanical heart valve. History of TIAs. Patient denies falls or headaches. INR yesterday per daughter was 4.3. Denies recent illness. Patient denies focal weakness but daughter has noticed that she seems somewhat off balance today. Patient denies headache. 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) Warfarin-induced coagulopathy Hypoxia Congestive heart failure Collar bone fracture Pacemaker A-fib Hypertrophic cardiomyopathy Home Medications ?Medication ?Instructions ?Recorded ?Last Taken ?Type spacer #1 ea 11/26/22 Unknown Rx warfarin 1 mg tablet 1 mg PO .COMPLEX blood thinner 12/03/22 Unknown History spironolactone 25 mg tablet 25 mg PO DAILY diuretic #90 tabs 12/12/24 01/24/25 Rx warfarin 5 mg tablet 5 mg PO DAILY blood thinner #100 01/04/25 01/24/25 Rx tabs albuterol sulfate 90 mcg/actuation 2 puff inhalation Q4H PRN 01/09/25 Unknown Rx aerosol inhaler shortness of breath or wheezing #8.5 grams budesonide-formoterol HFA 160 2 inh inhalation BID #1 ea 01/09/25 01/24/25 Rx mcg-4.5 mcg/actuation aerosol inhaler (Symbicort) torsemide 20 mg tablet 20 mg PO DAILY #180 tabs 01/26/25 01/24/25 Rx albuterol sulfate 2.5 mg/3 mL 2.5 mg (3 mL) inhalation Q4H PRN 02/08/25 Unknown Rx (0.083 %) solution for nebulization Sob &/Or Wheezing #180 mL dapagliflozin propanediol 10 mg 10 mg PO DAILY diabetes #90 tabs 02/14/25 Unknown Rx tablet (Farxiga) Disability Parking Placard #1 ea 05/07/25 Unknown Rx pantoprazole 40 mg tablet,delayed 40 mg PO QDAY #90 tabs 05/09/25 Unknown Rx release metoprolol succinate 100 mg 50 mg PO QDAY blood pressure 05/31/25 Unknown History tablet,extended release 24 hr montelukast 10 mg tablet 10 mg PO QPM 06/05/25 Unknown History Allergy/AdvReac Type Severity Reaction Status Date / Time No Known Allergies Allergy Verified 06/05/25 12:30 Family History Father Heart disease Grandmother Breast cancer Mother Heart disease Surgical History H/O cataract removal with insertion of prosthetic lens History of mitral valve replacement with mechanical valve Status post spinal disc removal History of hysterectomy Social History household members: family current occupation: works in a [employer] Smoking Status: Former smoker quit date: 09/13/83 pack-years: 1 Electronic Cigarette Use: not used how long ago did patient quit smokin years ago alcohol intake: current details: beer, on occasion substance use type: former substance user caffeine: Yes seatbelt use: always do you feel safe at home: Yes ROS ROS ED Review of Systems ROS Unobtainable: other Constitutional Constitutional ED: Reports lethargy; Denies chills, fever(s), sweats or weight loss Eyes Eyes: Denies blurry vision, change in vision or diplopia ENT ENT ED: Denies rhinorrhea or sore throat Cardiovascular Cardiovascular: Reports racing heartbeat; Denies chest pain or orthopnea Respiratory/Chest Respiratory/Chest: Denies cough, dyspnea, dyspnea on exertion, orthopnea or sputum Gastrointestinal Gastrointestinal: Denies abdominal pain, diarrhea, nausea or vomiting Genitourinary Genitourinary ED: Denies dysuria, hematuria or urinary frequency Musculoskeletal Musculoskeletal: Denies arthralgias, back pain, myalgias or neck pain Integumentary Denies abscess, Abrasions or rash Neurologic Neurologic: Reports other Details: Slurred speech ; Denies headache(s) or weakness Psychiatric Psychiatric: Denies anxiety, depression or suicidal thoughts Endocrine Endocrinology: Denies polydipsia, polyphagia or polyuria Hematologic/Lymphatic Hematologic/Lymphatic: Denies easy bleeding, easy bruising or lymphadenopathy Allergic/Immunologic Allergic/Immunologic ED: Denies mouth swelling, tongue swelling or urticaria EXAM Physical Exam Const Vital Signs: 06/05/25 12:24 06/05/25 12:24 06/05/25 12:29 Temperature 98.7 F 97.9 F Temperature Source Oral Temporal Pulse Rate 75 74 Respiratory Rate 16 18 Blood Pressure 76/64 L 121/78 H 76/64 L Blood Pressure Mean 68 92 68 Pulse Ox 96 98 96 Oxygen Delivery Method Room Air Room Air Room Air 06/05/25 12:32 06/05/25 12:32 06/05/25 12:54 Temperature 98.9 F 98.7 F Temperature Source Oral Oral Pulse Rate 69 70 Respiratory Rate 18 24 H Blood Pressure 121/78 H 115/71 Blood Pressure Mean 92 85 Pulse Ox 98 97 Oxygen Delivery Method Room Air Room Air Room Air 06/05/25 13:02 06/05/25 13:29 Temperature 98.6 F 98.6 F Temperature Source Oral Pulse Rate 72 72 Respiratory Rate 24 H 24 H Blood Pressure 113/74 113/74 Blood Pressure Mean 87 87 Pulse Ox 98 98 Oxygen Delivery Method Room Air Positive well nourished and well developed General Appearance ED: well developed and NAD HEENT Reports TM's clear and moist mucous membranes normocephalic and atraumatic; Negative for trauma or tenderness Tympanic Membrane ED: Yes TM's clear Eyes PERRL and EOMs intact bilaterally General Eye ED: Negative for pale conjunctiva or scleral icterus Neck no lymphadenopathy, supple and no JVD General: Negative for tenderness Chest Wall inspection of chest normal and palpation of chest normal Chest: Negative for tenderness Resp normal respiratory effort and clear to auscultation bilaterally Effort and Inspection: Negative for respiratory distress or pain with movement Auscultation: Negative for rhonchi, wheezes or diminished lung sounds Cardio regular rate, regular rhythm, S1 normal heart sound, S2 normal heart sound and no murmurs Peripheral Pulses: pulses 2+ throughout GI normal to inspection, nondistended, normoactive bowel sounds, soft to palpation, non-tender, non-distended and no masses Back/Spine no CVA tenderness and no thoracic nor lumbar tenderness Extremity normal to inspection General Extremety ED: Negative for edema General Extremity: Negative for edema Neuro oriented x3, CN's II-XII intact bilaterally, no sensory deficits noted and gait normal Neuro Narrative: No focal weakness on exam. She does have some dysarthria. NIH stroke scale initially was 2 given the dysarthria. No facial droop noted. No ataxia noted. Patient ambulated in the department Sensorium / Orientation: awake, alert, oriented to person, oriented to place and oriented to time Motor Exam: strength 5/5 throughout and strength abnormal Psych mental status grossly normal Skin no rashes or lesions noted and no wounds MDM MDM MDM Narrative Medical decision making narrative: Patient presents with strokelike symptoms with history of Coumadin for artificial heart valve. INR yesterday 4.3. Patient woke up with symptoms and is not a thrombolytic candidate. Will obtain CT brain imaging to rule out intracranial hemorrhage versus other acute process. Will also order CTA head and neck. Will obtain labs. 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 No acute findings. CTA head and neck were unremarkable. EKG obtained arrival showed a ventricularly paced rhythm with rate of 70 bpm. CBC with differential shows a white count of 4.9 with hemoglobin 12.5 and platelet count of 178. Chemistries unremarkable. INR was 3.9. Troponin elevated to 28 however patient not having chest pain and daughter states that patient always has an elevated troponin therefore I do not think she is having an acute coronary syndrome. Discussed case with stroke neurologist who recommended admission to our facility. Patient tells me she has had dilatation of her esophagus more than 10 years ago and she has not been able to swallow since yesterday. Discussed with hospitalist will evaluate patient for admission for concern for CVA and dysphagia. Lab Data Attestation: I reviewed the patient's lab results. Labs: Laboratory Results - last 24 hr 06/05/25 12:38 WBC 4.9 RBC 4.66 Hgb 12.5 Hct 41.0 MCV 88.0 MCH 26.8 L MCHC 30.5 L RDW Std Deviation 57.1 H RDW Coeff of Sona 18.5 H Plt Count 178 MPV 9.1 Immature Gran % (Auto) 0.600 Neut % (Auto) 61.8 Lymph % (Auto) 18.5 L [place] % (Auto) 16.2 H Eos % (Auto) 2.3 Baso % (Auto) 0.6 Absolute Neuts (auto) 3.0 Absolute Lymphs (auto) 0.90 Nucleated RBC % 0 PT 39.0 H INR 3.9 APTT 44.5 H Sodium 139 Potassium 3.4 Chloride 103 Carbon Dioxide 21.6 Anion Gap 14 BUN 26 H Creatinine 1.55 H Estim Creat Clear Calc 31.62 L Est GFR (MDRD) Non-Af 36 L BUN/Creatinine Ratio 16.6 Glucose 95 Calcium 9.6 Troponin T High Sens 228 H* D Radiography Diagnostic Testing: Clinical Impression(s) from Imaging Studies Brain CT 06/05/25 12:34 IMPRESSION: CHRONIC CHANGES. NO ACUTE FINDINGS. Red Alert: The critical findings in the findings and impression above were relayed directly by me by telephone to Ray Callaway on 06/05/2025 at 12:44 pm with readback verification. Reading Location: [facility] Head/Neck CTA 06/05/25 12:40 IMPRESSION: Minimal plaque formation at the origin of the left internal carotid artery. Red Alert: Stable exam. The critical findings in the findings and impression above were relayed directly by me by telephone to Ray Callaway on 06/05/2025 at 1:03 pm with readback verification. Reading Location: [facility] Discharge Plan Dx/Rx/DC Orders Clinical Impression: CVA (cerebral vascular accident), Dysphagia Disposition Disposition: Acute Care [facility]
--- NOTE | 2025-06-05 12:34 | CT_ITS ---
PROCEDURE: STROKE BRAIN/HEAD WITHOUT CONT 06/05/2025 REASON FOR EXAM: NEURO DEFICIT, ACUTE, STROKE SUSPECTED TECHNIQUE: Procedure Code: CTBR.ST Modality: CT Procedure: STROKE BRAIN/HEAD WITHOUT CONT Coronal and Sagittal reconstruction series were provided. One or more dose reduction techniques were used (e.g., Automated exposure control, adjustment of the mA and/or kV according to patient size, use of iterative reconstruction technique. RADIATION DOSE SUMMARY: CTDlvol: 30.38 mGy DLP: 943.05 mGycm COMPARISON: Prior study dated January 25, 2025. FINDINGS: Brain: Low density in the periventricular white matter suggests mild chronic small vessel ischemic changes. Stable focal encephalomalacia in the left frontal lobe in keeping with old ischemic infarct. Atherosclerotic calcification of the cavernous portions of the internal carotid arteries. CSF Spaces: Mild generalized cerebral atrophy Sinuses/Mastoids: Clear at visualized levels Bones: No skull fracture. CT/STROKE Brain/Head without Cont IMPRESSION: CHRONIC CHANGES. NO ACUTE FINDINGS. Red Alert: The critical findings in the findings and impression above were relayed directl y by me by telephone to Ray Callaway on 06/05/2025 at 12:44 pm with readback verification. Reading Location: [place] [id number]
--- NOTE | 2025-06-05 12:40 | CT_ITS ---
PROCEDURE: STROKE CTA HEAD AND NECK W/CON 06/05/2025 REASON FOR EXAM: NEURO DEFICIT, ACUTE, STROKE SUSPECTED TECHNIQUE: Procedure Code: CTCTA.ST.HN Modality: CT Procedure: STROKE CTA HEAD AND NECK W/CON Multiplanar Sagittal and Coronal images were obtained. 3D post processing was performed CONTRAST: Isovue 3 7 VOLUME: 100 mL One or more dose reduction techniques were used (e.g., Automated exposure control, adjustment of the mA and/or kV according to patient size, use of iterative reconstruction technique). RADIATION DOSE SUMMARY: CTDlvol: 34.5 mGy DLP: 573.72 mGycm COMPARISON: Prior study dated January 25, 2025. FINDINGS: Aortic Arch: Normal size and branching pattern. Mild atherosclerotic plaque. Prior CABG. Brachiocephalic and Subclavians: Mild atherosclerotic plaque without significant stenosis. RIGHT Carotid: Right CCA: Unremarkable. Right ICA: Unremarkable. Maximum stenosis (NASCET): 0 % Right ECA: Unremarkable. LEFT Carotid: Left CCA: Unremarkable. Left ICA: Minimal calcific plaque at the level of the carotid origin. Maximum stenosis (NASCET): Minimal % Left ECA: Unremarkable. Vertebrals: Codominant. Arise from the subclavians. Both vertebrals form the basilar. RIGHT Vertebral: Unremarkable. LEFT Vertebral: Unremarkable. Anatomy: [place] anatomy is normal. Aneurysm or avm: No intracranial aneurysms or large vascular malformations are identified. Anterior cerebral arteries: Unremarkable: Middle cerebral arteries: Unremarkable. Basilar artery: Unremarkable. Posterior cerebral arteries: Unremarkable. Other major branches of the posterior circulation: Unremarkable. Major venous structures: Unremarkable. Other findings: Neck: Lungs: Bones: CT/STROKE CTA Head AND Neck W/Con IMPRESSION: Minimal plaque formation at the origin of the left internal carotid artery. Red Alert: Stable exam. The critical findings in the findings and impression above were relayed directl y by me by telephone to Ray Callaway on 06/05/2025 at 1:03 pm with readback verification. Reading Location: [place] [address]
[2025-06-05 12:52] LABS: Hematocrit 41.0 % (37-47); Hemoglobin 12.5 g/dL (12.0-15.0); Immature Granulocytes Count 0.030 X10^3/uL (0.0-0.0); Mean Corp Hgb Conc 30.5 g/dL (32-36); Mean Corpuscular Volume 88.0 fL (81-99); Mean Platelet Vol. 9.1 fl (6.2-12.0); NRBC Flagged by Analyzer 0 % (0-5); Platelet Count 178 K/mm3 (150-450); RBC Distribution Width CV 18.5 % (11.6-14.6); RBC Distribution Width SD 57.1 fl (35.1-43.9); Red Blood Count 4.66 M/mm3 (4.2-5.4); White Blood Count 4.9 K/mm3 (4.4-11.0)
[2025-06-05 12:55] LABS: Prothrombin Time (Protime)PT. 39.0 SECONDS (11.7-14.9)
[2025-06-05 12:56] LABS: Partial Thromboplast Time 44.5 Seconds (24.1-36.2)
[2025-06-05 13:14] LABS: Anion Gap 14 (5-15); BUN 26 mg/dL (4-19); BUN/Creat Ratio 16.6 RATIO (10-20); Calcium,Total 9.6 mg/dL (7.6-11.0); Carbon Dioxide 21.6 mmol/L (21.0-32.0); Chloride 103 mmol/L (98-108); Estimated Creatinine Clearance 31.62 ml/min (50-250); Glucose 95 mg/dL (70-99); Potassium 3.4 mmol/L (3.3-5.1); Troponin T High Sensitivity 228 ng/L (<=14)
--- NOTE | 2025-06-05 13:47 | PCM.HP.STD ---
HPI - General General Date of Admission: 06/05/25 Date of Service: 06/05/25 Chief Complaint: Slurred speech, off balance, dysphagia HPI Narrative KELLI DANIEL, is a 69-year-old female history of KEVIN, hypertrophic cardiomyopathy, GERD, depression, A-fib and mechanical mitral heart valve on Coumadin, heart failure with OUTSOLE BEVELER-D who presented to [facility] ED 06/05/2025 for difficulty with speech as well as dysphagia. Last known well was around 9 PM last evening. She woke up at 9 AM and had some slurred speech. Per family INR yesterday 4.3. Patient denied any focal weakness but balance is somewhat off today. In the ED temp 98.7, heart rate 75, blood pressure initially 76/64, respiratory rate 16 pulse ox 96% on room air. CBC with white count 4.9 and hemoglobin 12.5, INR 3.9, BUN of 26 and creatinine 1.55 which appears to be baseline. Troponin 228. Patient was a stroke call in the ED, she was outside the window for any intervention and had a therapeutic INR, teleneurology recommended admission for stroke workup. Hospitalist contacted for admission. Patient evaluated at bedside, reports she went to bed as above and woke up with slurred speech and feeling off balance. Reports she is pretty much back to normal at the time of evaluation in the ED. Reports main complaint now is that for 2 days she has had difficulty with swallowing, she feels like food gets stuck in the center of her chest and is noticeable with liquids and solids and she feels a burning when she tries, no overt abdominal pain, no chest pain that does not associate with swallowing, has remote history of esophageal dilation many years ago but nothing recently, she notes that if she does not eat or drink this feeling eventually goes away on its own. Has some chronic diarrhea that is not changed, no changes in urination, no shortness of breath or cough, no numbness, weakness, tingling, fever, headache, changes in vision. [facility] Medical History Anemia Hypothyroidism Coronary artery disease BiPAP (biphasic positive airway pressure) dependence Sleep apnea Autoimmune thyroiditis Multinodular goiter Presence of cardiac resynchronization therapy defibrillator (OUTSOLE BEVELER-D) Warfarin-induced coagulopathy Hypoxia Congestive heart failure Collar bone fracture Pacemaker A-fib Hypertrophic cardiomyopathy Home Medications ?Medication ?Instructions ?Recorded ?Last Taken ?Type spacer #1 ea 11/26/22 Unknown Rx warfarin 1 mg tablet 1 mg PO .COMPLEX blood thinner 12/03/22 Unknown History spironolactone 25 mg tablet 25 mg PO DAILY diuretic #90 tabs 12/12/24 01/24/25 Rx warfarin 5 mg tablet 5 mg PO DAILY blood thinner #100 01/04/25 01/24/25 Rx tabs albuterol sulfate 90 mcg/actuation 2 puff inhalation Q4H PRN 01/09/25 Unknown Rx aerosol inhaler shortness of breath or wheezing #8.5 grams budesonide-formoterol HFA 160 2 inh inhalation BID #1 ea 01/09/25 01/24/25 Rx mcg-4.5 mcg/actuation aerosol inhaler (Symbicort) torsemide 20 mg tablet 20 mg PO DAILY #180 tabs 01/26/25 01/24/25 Rx albuterol sulfate 2.5 mg/3 mL 2.5 mg (3 mL) inhalation Q4H PRN 02/08/25 Unknown Rx (0.083 %) solution for nebulization Sob &/Or Wheezing #180 mL dapagliflozin propanediol 10 mg 10 mg PO DAILY diabetes #90 tabs 02/14/25 Unknown Rx tablet (Farxiga) Disability Parking Placard #1 ea 05/07/25 Unknown Rx pantoprazole 40 mg tablet,delayed 40 mg PO QDAY #90 tabs 05/09/25 Unknown Rx release metoprolol succinate 100 mg 50 mg PO QDAY blood pressure 05/31/25 Unknown History tablet,extended release 24 hr montelukast 10 mg tablet 10 mg PO QPM 06/05/25 Unknown History Allergy/AdvReac Type Severity Reaction Status Date / Time No Known Allergies Allergy Verified 06/05/25 12:30 Family History Father Heart disease Grandmother Breast cancer Mother Heart disease Surgical History H/O cataract removal with insertion of prosthetic lens History of mitral valve replacement with mechanical valve Status post spinal disc removal History of hysterectomy Social History household members: family current occupation: works in a [employer] Smoking Status: Former smoker quit date: 09/13/83 pack-years: 1 Electronic Cigarette Use: not used how long ago did patient quit smokin years ago alcohol intake: current details: beer, on occasion substance use type: former substance user caffeine: Yes seatbelt use: always do you feel safe at home: Yes ROS ROS Narrative General: Denies fever/chills HENT: Denies headache, denies stuffy nose, denies sore throat EYES: Denies changes in vision Resp: Denies cough, denies shortness of breath Cardiac: Has some burning when she swallows food or liquids but denies any central chest pain that does not involve swallowing GI: Denies abdominal pain but just feels somewhat uncomfortable when swallowing and lower chest particularly, has not had any regurgitation of food, some chronic diarrhea : Denies changes in urination Extremity: Denies any new swelling MSK: Denies weakness Neuro: Denies any numbness/tingling Heme: Some chronic problems with bruising on her Coumadin Skin: Denies rashes Psychiatric: No complaints voiced Vital Signs Vital Signs Vital Signs: 06/05/25 12:24 06/05/25 12:24 06/05/25 12:29 Temperature 98.7 F 97.9 F Temperature Source Oral Temporal Pulse Rate 75 74 Respiratory Rate 16 18 Blood Pressure 76/64 L 121/78 H 76/64 L Blood Pressure Mean 68 92 68 Pulse Ox 96 98 96 Oxygen Delivery Method Room Air Room Air Room Air 06/05/25 12:32 06/05/25 12:32 06/05/25 12:54 Temperature 98.9 F 98.7 F Temperature Source Oral Oral Pulse Rate 69 70 Respiratory Rate 18 24 H Blood Pressure 121/78 H 115/71 Blood Pressure Mean 92 85 Pulse Ox 98 97 Oxygen Delivery Method Room Air Room Air Room Air 06/05/25 13:02 06/05/25 13:29 Temperature 98.6 F 98.6 F Temperature Source Oral Pulse Rate 72 72 Respiratory Rate 24 H 24 H Blood Pressure 113/74 113/74 Blood Pressure Mean 87 87 Pulse Ox 98 98 Oxygen Delivery Method Room Air Weight Weight: 60.6 kg Body Mass Index (BMI) 21.5 Physical Exam Narrative General: Alert, oriented, no apparent distress, at times slow to answer questions HEENT: Atraumatic, normocephalic Eyes: Anicteric, normal conjunctiva, extraocular movements grossly intact Neck: Supple Respiratory: Clear to auscultation bilaterally, normal respiratory effort Cardiovascular: Regular rate and rhythm, mechanical click heard GI: Soft, nontender, nondistended, reports 1 her epigastrium is pushed upon she gets the feeling in her lower chest like when she tries to swallow something Extremities: No significant peripheral edema Musculoskeletal: Moving all extremities Neuro: No overt focal neurological deficits Skin: No rashes appreciated Psych: Superficially cooperative, somewhat resistant to recommendations Results Lab / Micro Data 06/05/25 12:38 06/05/25 12:38 Labs: Laboratory Results - last 24 hr 06/05/25 12:38: WBC 4.9, RBC 4.66, Hgb 12.5, Hct 41.0, MCV 88.0, MCH 26.8 L, MCHC 30.5 L, RDW Std Deviation 57.1 H, RDW Coeff of Sona 18.5 H, Plt Count 178, MPV 9.1, Immature Gran % (Auto) 0.600, Neut % (Auto) 61.8, Lymph % (Auto) 18.5 L, [place] % (Auto) 16.2 H, Eos % (Auto) 2.3, Baso % (Auto) 0.6, Absolute Neuts (auto) 3.0, Absolute Lymphs (auto) 0.90, Nucleated RBC % 0, PT 39.0 H, INR 3.9, APTT 44.5 H, Sodium 139, Potassium 3.4, Chloride 103, Carbon Dioxide 21.6, Anion Gap 14, BUN 26 H, Creatinine 1.55 H, Estim Creat Clear Calc 31.62 L, Est GFR (MDRD) Non-Af 36 L, BUN/Creatinine Ratio 16.6, Glucose 95, Calcium 9.6, Troponin T High Sens 228 H* D Imaging Radiology Impression Brain CT 06/05/25 12:34 IMPRESSION: CHRONIC CHANGES. NO ACUTE FINDINGS. Red Alert: The critical findings in the findings and impression above were relayed directly by me by telephone to Ray Callaway on 06/05/2025 at 12:44 pm with readback verification. Reading Location: [facility] Head/Neck CTA 06/05/25 12:40 IMPRESSION: Minimal plaque formation at the origin of the left internal carotid artery. Red Alert: Stable exam. The critical findings in the findings and impression above were relayed directly by me by telephone to Ray Callaway on 06/05/2025 at 1:03 pm with readback verification. Reading Location: [facility] Assessment & Plan Assessment/Plan (1) Slurred speech: PLAN: Plan # Slurred speech -Admit to tele -CT head w/ chronic changes in ED -CTA head and neck no LVO -Teleneurology noted CT at 24 hours this patient unable to have MRI, patient presently refusing a 24-hour CT as she said it will not show anything, counseled on the utility of repeating the CT scan after measured amount of time especially since she cannot have MRI, will order CT scan -NIH q4hr -Continued on Coumadin and statin -Echo ordered -PT/OT/Speech eval -Teleneuro consult placed -will continue metoprolol the lower dose given her heart failure and A-fib and add holding parameters -Did have low BP on arrival which may have caused or contributed symptoms if workup is overall negative #Dysphagia - Patient for 2 days with a sticking feeling when swallowing liquids and solids that will pass on its own but is associated with a burning feeling -Will start IV PPI -Has required esophageal dilation but was many years ago -Speech consult -GI consult -Clear liquid diet as tolerated while awaiting evaluation # Elevated troponin -Initial troponin 228 -Per daughter patient chronically has elevated troponin, chart review does reveal all previous troponins in our system have been elevated -Slightly increased from the elevation few months ago but patient was hypotensive upon arrival which may have contributed -She is having some discomfort specifically when swallowing foods or liquids but no central chest pain outside of that that would be concerning for primary cardiac etiology -Discussed her low blood pressure when she came in she reports that chronically runs low though now is low 100s -Has improved with her being in the ED however and certainly improved from 76/64 which improved without any acute interventions - Decrease dose and holding parameters for home metoprolol #Chronic heart failure with reduced ejection fraction -Daily weights -I's and O's -Heart healthy diet - History of an EF of 35% September 2023 -Continue patients home medications, appears euvolemic # CKD stage III b -Appears to be at baseline -Avoid nephrotoxic agents -Daily BMPs #[facility] - Patient with mechanical mitral valve -On Coumadin -INR is therapeutic at 3.9 -Continue metoprolol with holding parameters # History of HOCM -Patient with ventricular septal debulking surgery -Has EF of 35% -Patient has OUTSOLE BEVELER-D #KEVIN -Continue home NIPPV if applicable #Depression/anxiety -Continue home medications #GERD -Continue PPI #Hx asthma -Continue home inhalers #DVT ppx: Not indicated, therapeutic on Coumadin Kourtney Gallagher MD Charges/Coding Visit Charges Inpatient E&M: 31164 Init Hosp L2
[2025-06-05 15:16] LABS: Troponin T High Sens 2 HR 162 ng/L (<=14)
[2025-06-05 16:47] LABS: Troponin T High Sens 4 HR 228 ng/L (<=14)
[2025-06-05] MEDS: Warfarin (PBKC) 2.5 MG Tablet PO (17:09)
[2025-06-05] MEDS: Metoprolol(XL)Succ 25 MG Tablet PO (17:09)
--- NOTE | 2025-06-05 18:03 | CON.PCM.GI_ITS ---
HPI Consult Data Date of Consult: 06/05/25 HPI Narrative Reason for Consultation: Dysphagia HPI Narrative: KELLI DANIEL, is a 69 F who presented to the emergency department with difficulty with speech and concern for stroke. Patient on Coumadin for history of mechanical heart valve. She has a history of TIAs. Patient denies falls or headaches. INR yesterday per daughter was 4.3. Denies recent illness. Patient denies focal weakness but daughter has noticed that she seems somewhat off balance today. She has a history of KEVIN, hypertrophic cardiomyopathy, GERD, depression, A-fib and mechanical mitral heart valve on Coumadin, heart failure. She has been complaining of esophageal dysphagia with solid foods and pills. I was consulted for evaluation of esophageal dysphagia. 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) Warfarin-induced coagulopathy Hypoxia Congestive heart failure Collar bone fracture Pacemaker A-fib Hypertrophic cardiomyopathy Home Medications ?Medication ?Instructions ?Recorded ?Last Taken ?Type spacer #1 ea 11/26/22 Unknown Rx warfarin 1 mg tablet 1 mg PO .COMPLEX blood thinn er 12/03/22 Unknown History spironolactone 25 mg tablet 25 mg PO DAILY diuretic #9 0 tabs 12/12/24 01/24/25 Rx warfarin 5 mg tablet 5 mg PO DAILY blood thinner #100 01/04/25 01/24/25 Rx tabs albuterol sulfate 90 mcg/actuation 2 puff inhalation Q 4H PRN 01/09/25 Unknown Rx aerosol inhaler shortness of breath or wheez ing #8.5 grams budesonide-formoterol HFA 160 2 inh inhalation BID #1 ea 01/09/25 01/24/25 Rx mcg-4.5 mcg/actuation aerosol inhaler (Symbicort) torsemide 20 mg tablet 20 mg PO DAILY #180 tabs 01/24/25 Rx albuterol sulfate 2.5 mg/3 mL 2.5 mg (3 mL) inhalation Q4H PRN 02/08/25 Unknown Rx (0.083 %) solution for nebulization Sob &/Or Wheezing #180 mL dapagliflozin propanediol 10 mg 10 mg PO DAILY diabete s #90 tabs 02/14/25 Unknown Rx tablet (Seexiga) Disability Parking Placard #1 ea 05/07/25 Unknown Rx pantoprazole 40 mg tablet,delayed 40 mg PO QDAY #90 ta bs 05/09/25 Unknown Rx release metoprolol succinate 100 mg 50 mg PO QDAY blood pressu re 05/31/25 Unknown History tablet,extended release 24 hr montelukast 10 mg tablet 10 mg PO QPM 06/05/25 Unknow n History Allergy/AdvReac Type Severity Reaction Status Date / Time No Known Allergies Allergy Verified 06/05/25 12:30 Family History Father Heart disease Grandmother Breast cancer Mother Heart disease Surgical History H/O cataract removal with insertion of prosthetic lens History of mitral valve replacement with mechanical valve Status post spinal disc removal History of hysterectomy Social History household members: family current occupation: works in a [employer] Smoking Status: Former smoker quit date: 09/13/83 pack-years: 1 Electronic Cigarette Use: not used how long ago did patient quit smokin years ago alcohol intake: current details: beer, on occasion substance use type: former substance user caffeine: Yes seatbelt use: always do you feel safe at home: Yes Lab / Micro Data 06/05/25 12:38 06/05/25 12:38 Labs: Laboratory Results - last 24 hr 06/05/25 12:26: POC Glucose 116 H 06/05/25 12:38: WBC 4.9, RBC 4.66, Hgb 12.5, Hct 41.0, MCV 88.0, MCH 26.8 L, M CHC 30.5 L, RDW Std Deviation 57.1 H, RDW Coeff of Sona 18.5 H, Plt Count 178, MPV 9.1, Immature Gran % (Auto) 0.600, Neut % (Auto) 61.8, Lymph % (Auto) 18.5 L , [place] % (Auto) 16.2 H, Eos % (Auto) 2.3, Baso % (Auto) 0.6, Absolute Neuts (auto) 3.0, Absolute Lymphs (auto) 0.90, Nucleated RBC % 0, PT 39.0 H, INR 3.9, APTT 44.5 H, Sodium 139, Potassium 3.4, Chloride 103, Carbon Dioxide 21.6, Anion Gap 14, BUN 26 H, Creatinine 1.55 H, Estim Creat Clear Calc 31.62 L, Est GFR (MDRD) Non-Af 36 L, BUN/Creatinine Ratio 16.6, Glucose 95, Calcium 9.6, Troponin T High Sens 228 H* D 06/05/25 14:35: Troponin T Hi Sens 2 Hr 162 H* 06/05/25 16:02: Troponin T Hi Sens 4Hr 228 H* Imaging Radiology Impression Brain CT 06/05/25 12:34 IMPRESSION: CHRONIC CHANGES. NO ACUTE FINDINGS. Red Alert: The critical findings in the findings and impression above were relayed directly by me by telephone to Ray Callaway on 06/05/2025 at 12:44 pm with readback verification. Reading Location: [facility]--1 Head/Neck CTA 06/05/25 12:40 IMPRESSION: Minimal plaque formation at the origin of the left internal carotid artery. Red Alert: Stable exam. The critical findings in the findings and impression above were relayed directly by me by telephone to Ray Callaway on 06/05/2025 at 1:03 pm with readback verification. Reading Location: [facility]
--- NOTE | 2025-06-05 18:33 | CM.ED ---
Social work Reason for referral: stroke alert SW responded to stroke alert called in ED triage. Patient's daughter, Marianne, was explaining to team in triage about patient's condition. Supportive presence provided and active listening used. Patient taken to imaging and Marianne went to move vehicle. No further needs identified at this time. Jyotsna Nino, LAND [employer]ANNER, GEOMETRY TUTOR
[2025-06-05] MEDS: Albuterol 2.5 MG/3 ML VIAL.NEB. INHALATION (20:46)
[2025-06-05] MEDS: Budesonide Respules 0.5 MG/2 ML AMPUL.NEB. INHALATION (20:46)
[2025-06-05] MEDS: 0.9% Normal Saline (250mL Bag) 250 ML 15 ML IV (22:04)
[2025-06-05] MEDS: Pantoprazole Sodium 40 MG in 0.9% Normal Saline (100mL MB+) 100 ML 300 MG IV (22:09)
[2025-06-06] VITALS (18 sets, daily range): BP systolic 93–116; BP diastolic 51–73; PULSE 70–77; RESP 13–20; TEMP 36.2–36.7; O2SAT 82–97; BMI 21.4
--- NOTE | 2025-06-06 04:05 | CPS ---
1L oxygen bled into ASV machine due to <90% SpO2
--- NOTE | 2025-06-06 04:06 | CPS ---
Patient wears ASV HS
[2025-06-06 04:52] LABS: Hematocrit 38.8 % (37-47); Hemoglobin 12.2 g/dL (12.0-15.0); Immature Granulocytes Count 0.010 X10^3/uL (0.0-0.0); Mean Corp Hgb Conc 31.4 g/dL (32-36); Mean Corpuscular Volume 87.2 fL (81-99); Mean Platelet Vol. 9.3 fl (6.2-12.0); NRBC Flagged by Analyzer 0 % (0-5); Platelet Count 148 K/mm3 (150-450); RBC Distribution Width CV 18.5 % (11.6-14.6); RBC Distribution Width SD 57.8 fl (35.1-43.9); Red Blood Count 4.45 M/mm3 (4.2-5.4); White Blood Count 4.3 K/mm3 (4.4-11.0)
[2025-06-06 05:13] LABS: Anion Gap 12 (5-15); BUN 19 mg/dL (4-19); BUN/Creat Ratio 15.0 RATIO (10-20); Calcium,Total 9.0 mg/dL (7.6-11.0); Carbon Dioxide 21.5 mmol/L (21.0-32.0); Chloride 104 mmol/L (98-108); Cholesterol 73 mg/dL (<=200); Estimated Creatinine Clearance 37.99 ml/min (50-250); Glucose 86 mg/dL (70-99); Low Density Lipoprotein Calc. 26 mg/dL; Potassium 3.3 mmol/L (3.3-5.1); Triglycerides 61 mg/dL; Very Low Density Lipoprotein 12 mg/dL (5-40); cholesterol:hdl ratio screen 2.10
--- NOTE | 2025-06-06 05:40 | CPS ---
ASV settings EPAP 5, 4-20
[2025-06-06 05:42] LABS: Prothrombin Time (Protime)PT. 42.3 SECONDS (11.7-14.9)
[2025-06-06] MEDS: Albuterol 2.5 MG/3 ML VIAL.NEB. INHALATION ×2 (07:29→19:59)
[2025-06-06] MEDS: Budesonide Respules 0.5 MG/2 ML AMPUL.NEB. INHALATION ×2 (07:30→19:58)
--- NOTE | 2025-06-06 09:33 | CON.PCM.GI_ITS ---
HPI Consult Data Date of Consult: 06/06/25 HPI Narrative HPI Narrative: EM DANIEL, is a 69 F who presented to the ED with difficulty with speech and concern for stroke. Pt with mechanical heart valve on Coumadin. Lab findings in the ED WBC 4.9,, hgb 12.5, CMP unremarkable. INR 3.9. Brain CT with chronic changes and no acute findings. Head/neck CT minimal plaque formation at the origin of the left internal carotid artery. GI was consulted due to complaints of dysphagia. History was obtained from both patient and her daughter. Upon interview with pt, she admits to having esophageal dysphagia to both solids and liquids. This has been on going for at least a month but has progressively become worse over the past two days. When she swallows food bolus feels stuck in her distal esophagus. It does eventually pass and she does not endorse regurgitation and/or vomiting. In the past, she has had difficulty swallowing when she is hyperthyroid however this feels much different as it is not oropharyngeal. In 2021, pt had gastric ulcers and required a blood transfusion and has been on pantoprazole daily since. She had esophageal dilation over 10 years ago but does not recall if she was having swallowing issues at that time. She denies unintentional weight loss, heartburn, vomiting, abd pain or black/tarry stool. 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) Warfarin-induced coagulopathy Hypoxia Congestive heart failure Collar bone fracture Pacemaker A-fib Hypertrophic cardiomyopathy Home Medications ?Medication ?Instructions ?Recorded ?Last Taken ?Type spacer #1 ea 11/26/22 Unknown Rx warfarin 1 mg tablet 1 mg PO .COMPLEX blood thinn er 12/03/22 Unknown History spironolactone 25 mg tablet 25 mg PO DAILY diuretic #9 0 tabs 12/12/24 01/24/25 Rx warfarin 5 mg tablet 5 mg PO DAILY blood thinner #100 01/04/25 01/24/25 Rx tabs albuterol sulfate 90 mcg/actuation 2 puff inhalation Q 4H PRN 01/09/25 Unknown Rx aerosol inhaler shortness of breath or wheez ing #8.5 grams budesonide-formoterol HFA 160 2 inh inhalation BID #1 ea 01/09/25 01/24/25 Rx mcg-4.5 mcg/actuation aerosol inhaler (Symbicort) torsemide 20 mg tablet 20 mg PO DAILY #180 tabs 01/24/25 Rx albuterol sulfate 2.5 mg/3 mL 2.5 mg (3 mL) inhalation Q4H PRN 02/08/25 Unknown Rx (0.083 %) solution for nebulization Sob &/Or Wheezing #180 mL dapagliflozin propanediol 10 mg 10 mg PO DAILY diabete s #90 tabs 02/14/25 Unknown Rx tablet (Farxiga) Disability Parking Placard #1 ea 05/07/25 Unknown Rx pantoprazole 40 mg tablet,delayed 40 mg PO QDAY #90 ta bs 05/09/25 Unknown Rx release metoprolol succinate 100 mg 50 mg PO QDAY blood pressu re 05/31/25 Unknown History tablet,extended release 24 hr montelukast 10 mg tablet 10 mg PO QPM 06/05/25 Unknow n History Allergy/AdvReac Type Severity Reaction Status Date / Time No Known Allergies Allergy Verified 06/05/25 12:30 Family History Father Heart disease Grandmother Breast cancer Mother Heart disease Surgical History H/O cataract removal with insertion of prosthetic lens History of mitral valve replacement with mechanical valve Status post spinal disc removal History of hysterectomy Social History household members: family 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 Smoking Status: Former smoker quit date: 09/13/83 pack-years: 1 Electronic Cigarette Use: not used how long ago did patient quit smokin years ago alcohol intake: current details: beer, on occasion substance use type: former substance user caffeine: Yes seatbelt use: always do you feel safe at home: Yes ROS Cardiovascular Cardiovascular: Denies edema Gastrointestinal Gastrointestinal: Reports dysphagia and nausea; Denies heartburn, loose stools or melena Physical Exam Const no apparent distress and average body habitus Orientation / Consciousness: oriented to person, oriented to place and oriented to time Resp Effort and Inspection: able to speak in complete sentences GI normal to inspection, nondistended, normoactive bowel sounds, soft to palpation and non-tender Palpation: Negative for guarding Percussion: normal to percussion Lab / Micro Data Attestation: I reviewed the patient's lab results. 06/06/25 04:20 06/06/25 04:20 Labs: Laboratory Results - last 24 hr 06/05/25 12:26: POC Glucose 116 H 06/05/25 12:38: WBC 4.9, RBC 4.66, Hgb 12.5, Hct 41.0, MCV 88.0, MCH 26.8 L, M CHC 30.5 L, RDW Std Deviation 57.1 H, RDW Coeff of Sona 18.5 H, Plt Count 178, MPV 9.1, Immature Gran % (Auto) 0.600, Neut % (Auto) 61.8, Lymph % (Auto) 18.5 L , Tyler % (Auto) 16.2 H, Eos % (Auto) 2.3, Baso % (Auto) 0.6, Absolute Neuts (auto) 3.0, Absolute Lymphs (auto) 0.90, Nucleated RBC % 0, PT 39.0 H, INR 3.9, APTT 44.5 H, Sodium 139, Potassium 3.4, Chloride 103, Carbon Dioxide 21.6, Anion Gap 14, BUN 26 H, Creatinine 1.55 H, Estim Creat Clear Calc 31.62 L, Est GFR (MDRD) Non-Af 36 L, BUN/Creatinine Ratio 16.6, Glucose 95, Calcium 9.6, Troponin T High Sens 228 H* D 06/05/25 14:35: Troponin T Hi Sens 2 Hr 162 H* 06/05/25 16:02: Troponin T Hi Sens 4Hr 228 H* 06/06/25 04:20: WBC 4.3 L, RBC 4.45, Hgb 12.2, Hct 38.8, MCV 87.2, MCH 27.4, M CHC 31.4 L, RDW Std Deviation 57.8 H, RDW Coeff of Sona 18.5 H, Plt Count 148 L, MPV 9.3, Immature Gran % (Auto) 0.200, Neut % (Auto) 54.8, Lymph % (Auto) 26.9, Tyler % (Auto) 14.4 H, Eos % (Auto) 3.0, Baso % (Auto) 0.7, Absolute Neuts (auto) 2.4, Absolute Lymphs (auto) 1.16, Nucleated RBC % 0, PT 42.3 H, INR 4.3 H*, Sodium 137, Potassium 3.3, Chloride 104, Carbon Dioxide 21.5, Anion Gap 12, BUN 19, Creatinine 1.29 H, Estim Creat Clear Calc 37.99 L, Est GFR (MDRD) Non-Af 45 L, BUN/Creatinine Ratio 15.0, Glucose 86, Hemoglobin A1c 6.2 H, Calcium 9.0, Triglycerides 61, Cholesterol 73, LDL Cholesterol, Calc 26, VLDL Cholesterol 12, HDL Cholesterol 35 L, Cholesterol/HDL Ratio 2.10, TSH 0.818 Imaging Radiology Impression Brain CT 06/05/25 12:34 IMPRESSION: CHRONIC CHANGES. NO ACUTE FINDINGS. Red Alert: The critical findings in the findings and impression above were relayed directly by me by telephone to Rya Callaway on 06/05/2025 at 12:44 pm with readback verification. Reading Location: [facility] Head/Neck CTA 06/05/25 12:40 IMPRESSION: Minimal plaque formation at the origin of the left internal carotid artery. Red Alert: Stable exam. The critical findings in the findings and impression above were relayed directly by me by telephone to Ray Callaway on 06/05/2025 at 1:03 pm with readback verification. Reading Location: [facility] Assessment & Plan Assessment/Plan (1) Dysphagia: (2) Slurred speech: PLAN: Plan Em is a 69-year-old female patient who presented to the ED with concern for stroke due to slurred speech. Patient has a past medical history of TIAs, CKD, hypertrophic cardiomyopathy with mechanical heart valve on Coumadin, pacemarker, CHF and A-fib. Patient underwent CT brain which was negative for acute findings. CTA head and neck with minimal plaque formation at the origin of the left internal carotid artery. Patient also with complaints of dysphagia over the past month worsening over the past 2 days. GI was consulted for evaluation of her esophageal dysphagia. Patient's last dose of Coumadin was 06/03/2025 and INR today is 4.3. Pt has been NPO with last meal 06/06/25. Speech pathology plans to see pt today or tomorrow for evaluation. Case disccused with Dr. Robertson and plan is for EGD with dilation today.
[2025-06-06] MEDS: Pantoprazole Sodium 40 MG in 0.9% Normal Saline (100mL MB+) 100 ML 300 MG IV ×2 (10:06→21:07)
[2025-06-06] MEDS: 0.9% Saline Lock 10 ML Syringe IV ×2 (10:06→21:12)
--- NOTE | 2025-06-06 11:15 | CASEMGMT ---
ALENA NAVARRO Face to Face with patient for initial transition planning/care coordination assessment. ALENA NAVARRO introduced self and role at [facility]. Patient lying in bed, alert and oriented. Patient willing to participate in assessment and is able to answer all questions appropriately. Care providers, pharmacy, and demographics verified. Strata: 3 PCP: Yuval Specialists: Karl, flight crew ordnanceman; Maricel Bauer, electric brain wave equipment mechanic; Preferred Pharmacy: [facility]: [facility] supplement Prescription Benefit: yes Living Will/HPOA: Yes, Marianne Wu daughter LNOK: daughters Living Arrangements: Patient lives in a single story apartment on daughter property. No step to enter the apartment. Patient states she is independent at home. Transportation: daughter DME/HHC: Patient has cane, cpap, and nebulizer at home. No previous HHC or SNF. Will monitor for home oxygen, prefers [employer]. Patient wishes to discharge home. Patient states she is having trouble swallowing, will monitor for outpatient ST at discharge. Patient states she has no further needs or concerns at this time. CM to follow for discharge planning needs that may arise. Disposition Plan: Patient to discharge home with family support and follow-up plans in place. Will monitor for home oxygen and outpatient ST at discharge. Pretty PINEDA, RN, CM
--- NOTE | 2025-06-06 13:32 | CASEMGMT ---
Social Work SW assisted patient in completing her AD/LW. Prasanna Lutz
--- NOTE | 2025-06-06 14:17 | CON.PCM.NE_ITS ---
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 Her speech is better,but she still complains of dyspahgia. She cant get MRI, but refuses 24hr CTH. Neurological examination shows NIH 0. Neuroimaging shows no acute findings. Would recommend Repeat CTH in 24hrs - patient refused. Thats ok wont post exchange manager. Continue Coumadin, with goal INR. She was supratherapeutic. - Anti-platelet medication: Aspirin 81 mg daily - Occupational/ Physical therapy consults - NPO until swallow evaluation. IVF until able to take po - DVT prophylaxis with SCDs and heparin SQ - Vascular risk factor modification. The following are the recommended guidelines: LDL Goal < 70 Smoking Cessation Diabetes Management respite coordinator blood pressure control should achieve <130/80 mmHg. BP management should aim to achieve sharepoint application architect control in a reasonable amount of time, taking into consideration the individual patient's requirements and characteristics. Weight Management: Goal for BMI is 18.5 -24.9 kg/m2 Alcohol: No more than 2 drinks/day for men or 1 drink/day for non- women - Promote lifestyle modification: weight control, physical activity, moderation of alcohol intake, moderate sodium intake. Followup with PCP in 1-2 weeks, and in Neurology clinic in 6-12 weeks HPI Consult Data Date of Consult: 06/06/25 HPI Narrative HPI Narrative: KELLI DANIEL, is a 69 F who presents [facility] Medical History Anemia Hypothyroidism Coronary artery disease BiPAP (biphasic positive airway pressure) dependence Sleep apnea Autoimmune thyroiditis Multinodular goiter Presence of cardiac resynchronization therapy defibrillator ([employer]ING-D) Warfarin-induced coagulopathy Hypoxia Congestive heart failure Collar bone fracture Pacemaker A-fib Hypertrophic cardiomyopathy Home Medications ?Medication ?Instructions ?Recorded ?Last Taken ?Type spacer #1 ea 11/26/22 Unknown Rx warfarin 1 mg tablet 1 mg PO .COMPLEX blood thinn er 12/03/22 Unknown History spironolactone 25 mg tablet 25 mg PO DAILY diuretic #9 0 tabs 12/12/24 01/24/25 Rx warfarin 5 mg tablet 5 mg PO DAILY blood thinner #100 01/04/25 01/24/25 Rx tabs albuterol sulfate 90 mcg/actuation 2 puff inhalation Q 4H PRN 01/09/25 Unknown Rx aerosol inhaler shortness of breath or wheez ing #8.5 grams budesonide-formoterol HFA 160 2 inh inhalation BID #1 ea 01/09/25 01/24/25 Rx mcg-4.5 mcg/actuation aerosol inhaler (Symbicort) torsemide 20 mg tablet 20 mg PO DAILY #180 tabs 01/24/25 Rx albuterol sulfate 2.5 mg/3 mL 2.5 mg (3 mL) inhalation Q4H PRN 02/08/25 Unknown Rx (0.083 %) solution for nebulization Sob &/Or Wheezing #180 mL dapagliflozin propanediol 10 mg 10 mg PO DAILY diabete s #90 tabs 02/14/25 Unknown Rx tablet (Farxiga) Disability Parking Placard #1 ea 05/07/25 Unknown Rx pantoprazole 40 mg tablet,delayed 40 mg PO QDAY #90 ta bs 05/09/25 Unknown Rx release metoprolol succinate 100 mg 50 mg PO QDAY blood pressu re 05/31/25 Unknown History tablet,extended release 24 hr montelukast 10 mg tablet 10 mg PO QPM 06/05/25 Unknow n History Allergy/AdvReac Type Severity Reaction Status Date / Time No Known Allergies Allergy Verified 06/05/25 12:30 Family History Father Heart disease Grandmother Breast cancer Mother Heart disease Surgical History H/O cataract removal with insertion of prosthetic lens History of mitral valve replacement with mechanical valve Status post spinal disc removal History of hysterectomy Social History household members: family 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 Smoking Status: Former smoker quit date: 09/13/83 pack-years: 1 Electronic Cigarette Use: not used how long ago did patient quit smokin years ago alcohol intake: current details: beer, on occasion substance use type: former substance user caffeine: Yes seatbelt use: always do you feel safe at home: Yes Vital Signs Vital Signs Vital Signs: 06/05/25 15:16 06/05/25 15:21 06/05/25 15:45 Temperature 97.8 F Temperature Source Oral Pulse Rate 73 71 77 Pulse Strength Respiratory Rate 18 18 18 Respiratory Effort Respiratory Depth Respiratory Pattern Blood Pressure 108/69 116/67 105/64 Blood Pressure Mean 82 83 77 Blood Pressure Source Blood Pressure Position Blood Pressure Location Pulse Ox 99 99 94 Oxygen Delivery Method Room Air Room Air Room Air Oxygen Flow Rate (L/min) Fraction of Inspired Oxygen (FIO2) 06/05/25 16:09 06/05/25 17:09 06/05/25 19:30 Temperature 98.2 F Temperature Source Oral Pulse Rate 77 73 Pulse Strength Respiratory Rate 18 Respiratory Effort Normal Non-Labored Respiratory Depth Normal Respiratory Pattern Normal Blood Pressure 91/56 L Blood Pressure Mean 67 Blood Pressure Source Monitor Blood Pressure Position Sitting Blood Pressure Location Left Arm Pulse Ox 97 Oxygen Delivery Method Room Air Room Air Oxygen Flow Rate (L/min) Fraction of Inspired Oxygen (FIO2) 06/05/25 19:34 06/05/25 19:40 06/05/25 19:45 Temperature 98.2 F 98.4 F Temperature Source Oral Temporal Pulse Rate 73 70 Pulse Strength Respiratory Rate 18 16 Respiratory Effort Normal Non-Labored Respiratory Depth Normal Respiratory Pattern Normal Blood Pressure 91/56 L 92/56 L Blood Pressure Mean 67 68 Blood Pressure Source Monitor Monitor Blood Pressure Position Sitting Semi-Fowlers Blood Pressure Location Left Arm Left Arm Pulse Ox 97 92 Oxygen Delivery Method Room Air Room Air Bi-pap Oxygen Flow Rate (L/min) Fraction of Inspired Oxygen (FIO2) 06/05/25 20:45 06/05/25 20:45 06/05/25 23:30 Temperature 98.1 F Temperature Source Temporal Pulse Rate 70 70 Pulse Strength Respiratory Rate 20 H 16 Respiratory Effort Respiratory Depth Respiratory Pattern Normal Blood Pressure 92/64 Blood Pressure Mean 73 Blood Pressure Source Monitor Blood Pressure Position Semi-Fowlers Blood Pressure Location Left Arm Pulse Ox 93 94 Oxygen Delivery Method Room Air Room Air Oxygen Flow Rate (L/min) Fraction of Inspired Oxygen (FIO2) 06/06/25 03:10 06/06/25 03:10 06/06/25 03:30 Temperature 98.0 F Temperature Source Temporal Pulse Rate 70 70 Pulse Strength Respiratory Rate 13 16 Respiratory Effort Respiratory Depth Respiratory Pattern Normal Blood Pressure 94/68 Blood Pressure Mean 76 Blood Pressure Source Monitor Blood Pressure Position Semi-Fowlers Blood Pressure Location Left Arm Pulse Ox 94 94 93 Oxygen Delivery Method Bi-pap Bi-pap Oxygen Flow Rate (L/min) 1 Fraction of Inspired Oxygen (FIO2) 06/06/25 03:30 06/06/25 07:22 06/06/25 07:31 Temperature 97.8 F Temperature Source Oral Pulse Rate 70 70 Pulse Strength Respiratory Rate 16 18 Respiratory Effort Normal Non-Labored Respiratory Depth Normal Respiratory Pattern Normal Normal Blood Pressure 111/70 Blood Pressure Mean 83 Blood Pressure Source Monitor Blood Pressure Position Semi-Fowlers Blood Pressure Location Left Arm Pulse Ox 94 Oxygen Delivery Method Bi-pap Room Air Oxygen Flow Rate (L/min) Fraction of Inspired Oxygen (FIO2) 06/06/25 07:31 06/06/25 07:48 06/06/25 10:00 Temperature Temperature Source Pulse Rate Pulse Strength Normal (2+) Respiratory Rate Respiratory Effort Normal Non-Labored Respiratory Depth Normal Respiratory Pattern Normal Blood Pressure Blood Pressure Mean Blood Pressure Source Blood Pressure Position Blood Pressure Location Pulse Ox 93 Oxygen Delivery Method Nasal Cannula Room Air Oxygen Flow Rate (L/min) 1 Fraction of Inspired Oxygen (FIO2) 06/06/25 11:27 Temperature 98.1 F Temperature Source Oral Pulse Rate 72 Pulse Strength Respiratory Rate 18 Respiratory Effort Respiratory Depth Respiratory Pattern Blood Pressure 98/73 Blood Pressure Mean 81 Blood Pressure Source Monitor Blood Pressure Position Semi-Fowlers Blood Pressure Location Left Arm Pulse Ox 94 Oxygen Delivery Method Room Air Oxygen Flow Rate (L/min) Fraction of Inspired Oxygen (FIO2) Weight Weight: 60.1 kg Body Mass Index (BMI) 21.4 EEG Results Procedure Details EEG Procedure Details: KELLI DANIEL is a 69 year old F with a past medical history of , who presents for evaluation of Electroencephalogram on DATE at TIME Lab / Micro Data 06/06/25 04:20 06/06/25 04:20 Labs: Laboratory Results - last 24 hr 06/05/25 12:26: POC Glucose 116 H 06/05/25 14:35: Troponin T Hi Sens 2 Hr 162 H* 06/05/25 16:02: Troponin T Hi Sens 4Hr 228 H* 06/06/25 04:20: WBC 4.3 L, RBC 4.45, Hgb 12.2, Hct 38.8, MCV 87.2, MCH 27.4, M CHC 31.4 L, RDW Std Deviation 57.8 H, RDW Coeff of Osna 18.5 H, Plt Count 148 L, MPV 9.3, Immature Gran % (Auto) 0.200, Neut % (Auto) 54.8, Lymph % (Auto) 26.9, [place] % (Auto) 14.4 H, Eos % (Auto) 3.0, Baso % (Auto) 0.7, Absolute Neuts (auto) 2.4, Absolute Lymphs (auto) 1.16, Nucleated RBC % 0, PT 42.3 H, INR 4.3 H*, Sodium 137, Potassium 3.3, Chloride 104, Carbon Dioxide 21.5, Anion Gap 12, BUN 19, Creatinine 1.29 H, Estim Creat Clear Calc 37.99 L, Est GFR (MDRD) Non-Af 45 L, BUN/Creatinine Ratio 15.0, Glucose 86, Hemoglobin A1c 6.2 H, Calcium 9.0, Triglycerides 61, Cholesterol 73, LDL Cholesterol, Calc 26, VLDL Cholesterol 12, HDL Cholesterol 35 L, Cholesterol/HDL Ratio 2.10, TSH 0.818 Active Medications Active Medications Active Medications: Current Medications Generic Name Dose Route Start Last Admin Trade Name Freq PRN Reason Stop Dose Admin Acetaminophen 650 mg 06/05/25 15:42 Acetaminophen 325 Mg Tablet PO Q6H PRN PRN Pain 1-10 Or Fever >100.7 Albuterol Sulfate 2.5 mg 06/05/25 15:42 Albuterol 2.5 Mg/3 Ml Vial.Neb. INHALATION Q2H PRN PRN SOB &/OR WHEEZING Albuterol Sulfate 2.5 mg 06/05/25 15:48 06/06/25 07:29 Albuterol 2.5 Mg/3 Ml Vial.Neb. INHALATION 2.5 mg Q6HWA.RT REMI Administration Atorvastatin Calcium 80 mg 06/05/25 22:00 06/05/25 21:58 Atorvastatin Calcium 80 Mg Tablet PO 80 mg QHS REMI Administration Budesonide 0.5 mg 06/05/25 16:00 06/06/25 07:30 Budesonide Respules 0.5 Mg/2 Ml Ampul.Neb. INHALATION 0.5 mg Q12H.RT REMI Administration Furosemide 40 mg 06/06/25 10:00 06/06/25 09:28 Furosemide 40 Mg Tablet PO Not Given DAILY REMI Hydralazine HCl 5 mg 06/05/25 15:42 Hydralazine 20 Mg/Ml Vial IV 06/06/25 15:42 Q30M PRN maintain BP parameters with HR <60 Pantoprazole Sodium 40 mg/ 100 mls @ 300 mls/hr 06/05/25 22:00 06/06/25 10:26 Sodium Chloride IV Infused Q12 REMI Infusion Sodium Chloride 250 mls @ 15 mls/hr 06/05/25 15:43 06/06/25 00:56 IV 0 mls/hr .[id number] PRN Infusion Saline Flush Sodium Chloride 250 mls @ 15 mls/hr 06/05/25 15:43 IV .[id number] PRN Additional IVPB Infusion Labetalol HCl 10 - 20 mg 06/05/25 15:42 Labetalol 20 Mg/4 Ml Vial IV 06/06/25 15:42 Q10M PRN PRN maintain BP parameters with HR >/=60 Melatonin 10 mg 06/05/25 15:42 Melatonin 10 Mg Tablet PO QHS PRN PRN INSOMNIA Metoprolol Succinate 25 mg 06/05/25 15:42 06/06/25 09:29 Metoprolol(Xl)Succ 25 Mg Tablet PO Not Given DAILY [facility] Protocol Montelukast Sodium 10 mg 06/05/25 21:00 06/05/25 21:58 Montelukast 10 Mg Tablet PO 10 mg QPM REMI Administration Ondansetron HCl 4 mg 06/05/25 15:42 Ondansetron 4 Mg/2 Ml Vial IV Q8H PRN PRN NAUSEA/VOMITING Senna/Docusate Sodium 2 tablet 06/05/25 15:42 Senna/Docusate Sodium 1 Tablet PO BID PRN PRN Constipation Sodium Chloride 10 - 40 ml 06/05/25 15:43 06/06/25 10:06 0.9% Saline Lock 10 Ml Syringe IV 10 ml UD PRN Administration SALINE FLUSH Spironolactone 25 mg 06/06/25 10:00 06/06/25 09:28 Spironolactone 25 Mg Tablet PO Not Given DAILY [facility] Protocol Warfarin Sodium 5 mg 06/06/25 17:00 Warfarin (Pbkc) 5 Mg Tablet PO [email or web address] [facility] Warfarin Sodium 2.5 mg 06/05/25 17:00 06/05/25 17:09 Warfarin (Pbkc) 2.5 Mg Tablet PO 2.5 mg On Hold: 06/06/25 06:20 [email or web address] [facility] Administration NIHSS NIHSS Nursing Documentation NIHSS Nursing Documentation: NIHSS: Ischemic Stroke/TIA Start: 06/05/25 15:42 Text: For PCU Patients: NIH and Neuro Check every 4 Status: Active hours, PRN and with change in RN caregiver. Freq: [id number] Protocol: Activity Type Activity Date Activity User E-sign Co-sign Detail Recorded Client Recorded Date Recorded By Document 06/06/25 11:27 SAMREEN 0 06/06/25 11:26 SAMREEN 06/06/25 11:27 NIH Stroke Scale [NIHSS] A score of 0 is normal or asymptomatic . Total possible score is 42. Inpatient: RN or Physician to activate a stroke alert for onset of new stroke symptoms or with NIHSS increase >/= 3 points. Following change in neurological status, NIHSS will be performed per physician order or more frequently PRN. -1a. Level of Consciousness 0 - Alert; keenly responsive -1b. LOC Questions 0 - Answers BOTH questions correctly -1c. LOC Commands 0 - Performs BOTH tasks correctly -2. Best Gaze 0 - Normal -3. Visual 0 - No visual loss -4. Facial Palsy 0 - Normal symmetrical movements -5a. Left Arm 0 - No drift; arm holds 90 ( or 45) degrees for full 10 seconds -5b. Right Arm 0 - No drift; arm holds 90 ( or 45) degrees for full 10 seconds -6a. Left Leg 0 - No drift; leg holds 30- degree position for full 5 seconds -6b. Right Leg 0 - No drift; leg holds 30- degree position for full 5 seconds -7. Limb Ataxia 0 - Absent -8. Sensory 0 - Normal; no sensory loss -9. Best Language 0 - No aphasia; normal -10. Dysarthria 1 = Mild-to- moderate dysarthria; -11. Extinction and Inattention 0 - No abnormality -Total 1 Query Text:A score of 0 is normal or asymptomatic. Total possible score is 42 . ED: Notify Physician for NIHSS increase by > / = 3 points. Inpatient: RN or Physician to activate a stroke alert for NIHSS increase of > / = 3 points. Coma Scale [Assess] -Eye Opening Spontaneous -Motor Obeys Commands -Verbal Oriented [Total] -Coma Scale Total 15
[2025-06-06] MEDS: Lactated Ringers 1,000 ML 15 ML IV (14:32)
--- NOTE | 2025-06-06 14:40 | PCM.PRE.AN2 ---
ASA Classification* ASA Classification ASA Classification: 3 Assessment & Plan Anesthesia* Anesthesia Assessment Anesthesia Assessment: Discussed sedation and/or anesthesia options, risks, benefits, and alternatives with patient/parents/legal guardian/POA. Questions invited. The patient/parents/legal guardian/POA seems to understand and agrees to proceed with anesthesia plan. Reviewed the physical assessment, medical history, allergy history and patient home medications list prior to surgery/procedure/anesthetic and documented any changes. Performed airway and anesthesia risk assessments. Anesthesia Type Anesthesia Type: MAC History Source History Obtained from:: Patient and Chart Anesthesia Focused Assessment* Temperature: 98.1 F Pulse Rate: 72 Blood Pressure: 98/73 Respiratory Rate: 18 Pulse Ox: 94 Oxygen Delivery Method: Room Air Oxygen Flow Rate (L/min): 1 Fraction of Inspired Oxygen (FIO2): 24 Airway Assessment Mouth opens: >3 cm Mallampati Score: II Teeth Condition: Caps/Crowns and Missing Neck Range of motion (ROM): Limited ROM Labs Anesthesia Preop lab: CBC WBC, (4.4-11.0) 4.3 K/mm3 L Today, 04:20 RBC, (4.2-5.4) 4.45 M/mm3 Today, 04:20 Hgb, (12.0-15.0) 12.2 g/dL Today, 04:20 Hct, (37-47) 38.8 % Today, 04:20 Plt Count, (150-450) 148 K/mm3 L Today, 04:20 CHEMISTRY Potassium, (3.3-5.1) 3.3 mmol/L Today, 04:20 Sodium, (133-145) 137 mmol/L Today, 04:20 Magnesium, (1.5-2.2) 2.5 mg/dL H 01/26/25, 03:54 Phosphorus, (2.5-4.9) 3.0 mg/dL 05/16/24, 15:54 BUN, (4-19) 19 mg/dL Today, 04:20 Creatinine, (0.70-1.20) 1.29 mg/dL H Today, 04:20 Glucose, (70-99) 86 mg/dL Today, 04:20 POC Glucose, (74-106) 116 mg/dL H 06/05/25, 12:26 TSH, (0.300-4.200) 0.818 uIU/mL Today, 04:20 COAG PT, (11.7-14.9) 42.3 SECONDS H Today, 04:20 INR 3.4 04/30/25, 09:24 Pre-Assessment Diagnosis/Proposed Procedure Planned Operative Procedure(s): EGD Anesthesia History 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 When Was Last Pacemaker Check patient unsure. 06/05/25 19:45 QUESTION #4 FULL TEXT: You/Your Family Experience fever (hyperthermia) with Anesthesia Last Oral Intake Last Oral intake: Last Oral Intake NPO since 00:00 06/06/25 14:15 Meds taken in AM with sips of No 06/06/25 14:15 water? 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 Female HX of Motion Sickness HX of N/V After Surgery Non-Smoker Duration of Surgery greater than 60 minutes Number of Risk Factors PONV Score Height & Weight Height & Weight: Anesthesia: Height & Weight Height 5 ft 6 in 06/06/25 14:15 Weight: 60.1 kg 06/06/25 14:15 Body Mass Index (BMI) 21.4 06/06/25 14:15 Respiratory Assessment Respiratory Assessment - bottom bleacher: Respiratory Tract Infection Hx - bottom bleacher Hx Respiratory Tract Infection No 06/05/25 19:45 STOP Sleep Apnea STOP Sleep Apnea - bottom bleacher: STOP Sleep Apnea - bottom bleacher Hx Hypertension No 06/06/25 13:50 Hx Sleep Apnea Yes 06/05/25 15:42 CPAP No 06/05/25 15:42 BIPAP Yes 06/05/25 15:42 Do you snore loudly (louder than talking or can be heard Do you often feel tired/ fatigued/ sleepy during daytime? Has anyone observed you stop breathing during sleep? STOP Results Positive 06/05/25 15:42 QUESTION #5 FULL TEXT : Do you snore loudly (louder than talking or can be heard through closed doors)? 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 Specify any problems Hx of Preganancy in last 3 N/A 06/05/25 15:42 Months Nurse Filling Out Transfusion MMORRISON 06/05/25 15:42 & Questions: Date: 06/05/25 06/05/25 15:42 Time: 15:47 06/05/25 15:42 Patient unable to answer at this time (ie. confused, unrespo /Reproduction History /Reproductive History - bottom bleacher: /Reproductive Hx- bottom bleacher Hx Now No 06/05/25 19:45 Gestational Age (in weeks): EDC: Hx Hx Para Hx Section SAB No 06/05/25 19:45 Active Medications Active Medications: Current Medications Generic Name Dose Route Start Last Admin Trade Name Freq PRN Reason Stop Dose Admin Acetaminophen 650 mg 06/05/25 15:42 Acetaminophen 325 Mg Tablet PO Q6H PRN PRN Pain 1-10 Or Fever >100.7 Albuterol Sulfate 2.5 mg 06/05/25 15:42 Albuterol 2.5 Mg/3 Ml Vial.Neb. INHALATION Q2H PRN PRN SOB &/OR WHEEZING Albuterol Sulfate 2.5 mg 06/05/25 15:48 06/06/25 07:29 Albuterol 2.5 Mg/3 Ml Vial.Neb. INHALATION 2.5 mg Q6HWA.RT REMI Administration Atorvastatin Calcium 80 mg 06/05/25 22:00 06/05/25 21:58 Atorvastatin Calcium 80 Mg Tablet PO 80 mg QHS REMI Administration Budesonide 0.5 mg 06/05/25 16:00 06/06/25 07:30 Budesonide Respules 0.5 Mg/2 Ml Ampul.Neb. INHALATION 0.5 mg Q12H.RT REMI Administration Furosemide 40 mg 06/06/25 10:00 06/06/25 09:28 Furosemide 40 Mg Tablet PO Not Given DAILY REMI Hydralazine HCl 5 mg 06/05/25 15:42 Hydralazine 20 Mg/Ml Vial IV 06/06/25 15:42 Q30M PRN maintain BP parameters with HR <60 Pantoprazole Sodium 40 mg/ 100 mls @ 300 mls/hr 06/05/25 22:00 06/06/25 10:26 Sodium Chloride IV Infused Q12 REMI Infusion Sodium Chloride 250 mls @ 15 mls/hr 06/05/25 15:43 06/06/25 00:56 IV 0 mls/hr .[id number] PRN Infusion Saline Flush Sodium Chloride 250 mls @ 15 mls/hr 06/05/25 15:43 IV .[id number] PRN Additional IVPB Infusion Lactated Ringer's 1,000 mls @ 15 mls/hr 06/06/25 14:30 06/06/25 14:32 IV 15 mls/hr .Q48H REMI Administration Labetalol HCl 10 - 20 mg 06/05/25 15:42 Labetalol 20 Mg/4 Ml Vial IV 06/06/25 15:42 Q10M PRN PRN maintain BP parameters with HR >/=60 Melatonin 10 mg 06/05/25 15:42 Melatonin 10 Mg Tablet PO QHS PRN PRN INSOMNIA Metoprolol Succinate 25 mg 06/05/25 15:42 06/06/25 09:29 Metoprolol(Xl)Succ 25 Mg Tablet PO Not Given DAILY REMI Protocol Montelukast Sodium 10 mg 06/05/25 21:00 06/05/25 21:58 Montelukast 10 Mg Tablet PO 10 mg QPM REMI Administration Ondansetron HCl 4 mg 06/05/25 15:42 Ondansetron 4 Mg/2 Ml Vial IV Q8H PRN PRN NAUSEA/VOMITING Senna/Docusate Sodium 2 tablet 06/05/25 15:42 Senna/Docusate Sodium 1 Tablet PO BID PRN PRN Constipation Sodium Chloride 10 - 40 ml 06/05/25 15:43 06/06/25 10:06 0.9% Saline Lock 10 Ml Syringe IV 10 ml UD PRN Administration SALINE FLUSH Spironolactone 25 mg 06/06/25 10:00 06/06/25 09:28 Spironolactone 25 Mg Tablet PO Not Given DAILY [facility] Protocol Warfarin Sodium 5 mg 06/06/25 17:00 Warfarin (Pbkc) 5 Mg Tablet PO [id number] [facility] Warfarin Sodium 2.5 mg 06/05/25 17:00 06/05/25 17:09 Warfarin (Pbkc) 2.5 Mg Tablet PO 2.5 mg On Hold: 06/06/25 06:20 [id number]@1700 [facility] Administration PFSH Medical History Anemia Hypothyroidism Coronary artery disease BiPAP (biphasic positive airway pressure) dependence Sleep apnea Autoimmune thyroiditis Multinodular goiter Presence of cardiac resynchronization therapy defibrillator (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 REPRESENTATIVE-D) Warfarin-induced coagulopathy Hypoxia Congestive heart failure Collar bone fracture Pacemaker A-fib Hypertrophic cardiomyopathy Home Medications ?Medication ?Instructions ?Recorded ?Last Taken ?Type spacer #1 ea 11/26/22 Unknown Rx warfarin 1 mg tablet 1 mg PO .COMPLEX blood thinner 12/03/22 Unknown History spironolactone 25 mg tablet 25 mg PO DAILY diuretic #90 tabs 12/12/24 01/24/25 Rx warfarin 5 mg tablet 5 mg PO DAILY blood thinner #100 01/04/25 01/24/25 Rx tabs albuterol sulfate 90 mcg/actuation 2 puff inhalation Q4H PRN 01/09/25 Unknown Rx aerosol inhaler shortness of breath or wheezing #8.5 grams budesonide-formoterol HFA 160 2 inh inhalation BID #1 ea 01/09/25 01/24/25 Rx mcg-4.5 mcg/actuation aerosol inhaler (Symbicort) torsemide 20 mg tablet 20 mg PO DAILY #180 tabs 01/26/25 01/24/25 Rx albuterol sulfate 2.5 mg/3 mL 2.5 mg (3 mL) inhalation Q4H PRN 02/08/25 Unknown Rx (0.083 %) solution for nebulization Sob &/Or Wheezing #180 mL dapagliflozin propanediol 10 mg 10 mg PO DAILY diabetes #90 tabs 02/14/25 Unknown Rx tablet (Farxiga) Disability Parking Placard #1 ea 05/07/25 Unknown Rx pantoprazole 40 mg tablet,delayed 40 mg PO QDAY #90 tabs 05/09/25 Unknown Rx release metoprolol succinate 100 mg 50 mg PO QDAY blood pressure 05/31/25 Unknown History tablet,extended release 24 hr montelukast 10 mg tablet 10 mg PO QPM 06/05/25 Unknown History Allergy/AdvReac Type Severity Reaction Status Date / Time No Known Allergies Allergy Verified 06/05/25 12:30 Family History Father Heart disease Grandmother Breast cancer Mother Heart disease Surgical History H/O cataract removal with insertion of prosthetic lens History of mitral valve replacement with mechanical valve Status post spinal disc removal History of hysterectomy Social History household members: family 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
--- NOTE | 2025-06-06 15:00 | EGD_PTH ---
PATIENT: KELLI DANIEL LOC: [facility] U#:[id number] AGE/SX: 69/F ROOM: [facility] RE06/05/[address]: Dr. Berto Baptiste MD : 1955 BED: 1 DIS: 06/07/2025 SPEC #: [id number] RECD: 06/07/25 07:15 STATUS: MUSHTAQ REJuvencio #: [id number] JACEY: 06/06/25 15:[address]: Gildardo Robertson DEPT: SURGICAL PATHOLOGY RECD BY: Lulu Fuentes ENTERED: 06/07/25 07:54 SP TYPE: EGD BIOPSY OTHR DR: MD Dr. Concepcion Forde MD Dr. Alycia Findlay, MD Archana Hinduja, MD Dr. Allison Jordan, DO Dr. Alicia Zha, MD Dr. Deepak Gulati, MD Dr. Hera Kamdar, MD Dr. Jan Bittar, MD Dr. James Burke, MD Dr. Jorge Morales, MD Margaret Beigel, MD Dr. Matthew Gusler, MD Dr. Maryam Mian, MD Dr. Mohamed Ridha, MD Dr. Mhd Ezzat Zaghlouleh, MD Dr. Nicholas F Kotsonis, MD Dr. Prakash Chand, MD Dr. Paige Pierce, MD Dr. Peter Robinson, MD Dr. Rami Ibrahim, MD Dr. Sushil Lakhani, MD Dr. Vivien Lee, MD Yousef Hannawi, MD Heather Evans, SEED LABORATORY TECHNICIAN-C Eliza Tellez, SEED LABORATORY TECHNICIAN-C YENIFER Shukla Tissues: A - Esophagus, NOS Procedures: Immunohistochemical Stains Special Stain Group I Surgery Specimen Level IV GMS Stain (control) IHC Stain ADDITIONAL HEADER OPERATION: EGD with dilation PRE-OP DIAGNOSIS: Dysphagia, slurred speech TISSUE SUBMITTED: A- Random esophagus biopsy MICROSCOPIC DIAGNOSIS A. Esophagus, random, biopsy: * Squamous mucosa with reactive changes. * Detached fragments of fibrinopurulent debris suggestive of ulceration. * IHC for HSV (herpes simplex virus types I&II) and CMV (cytomegalovirus) are negative. * PASD is negative for fungal organisms. MICROSCOPIC DESCRIPTION Slides are reviewed. All matched controls reacted appropriately. These tests were developed and their performance characteristics determined by [facility]. They may not have been cleared or approved by the U.S. Food and Drug Administration. The FDA has determined that such clearance or approval is not necessary. The above immunohistochemical markers and/or special stains have been reviewed by the Pathologist. GROSS DESCRIPTION A. Received in fixative is one container labeled with the patient's name and designated Random esophagus biopsy. The specimen consists of multiple irregular fragments of roque tissue that in aggregate measure 1 x 0.5 x 0.1 cm. The specimen is totally submitted in one cassette. NV 06/07/2025 CPT:92318,[id number],[id number]
[2025-06-06] MEDS: Lactated Ringers 1,000 ML 1000 ML IV (15:12)
--- NOTE | 2025-06-06 15:28 | PN.HOSP_ITS ---
Subjective Subjective Continued slurred speech that she says is improved. She cannot have an MRI because of pacemaker and she refuses repeat CT scan therefore we will conclude workup for stroke in the meantime EGD is planned for her dysphagia Objective Data Objective Data Vital Signs: Vital Signs Temp Pulse Resp BP Pulse Ox O2 Del Method O2 Flow Rate 97.7 F L 72 18 95/66 82 Room Air 1 06/06/25 15:24 06/06/25 15:24 06/06/25 15:24 06/06/25 15:06/06/25 15:24 06/06/25 15:06/06/25 14:43 FiO2 06/06/25 14:43 Oxygen Flow Rate (L/min) 1 Oxygen Delivery Method Room Air Weight: 132 lb 7.965 oz Body Mass Index (BMI) 21.4 Intake & Output: Intake and Output for Last 24 Hours 06/05/25 06/06/25 06/07/25 03:59 03:59 03:59 Intake Total 143 / 143 100 / 100 Balance 143 / 143 100 / 100 Lab / Micro Data 06/06/25 04:20 06/06/25 04:20 Labs: Laboratory Results - last 24 hr 06/05/25 12:26: POC Glucose 116 H 06/05/25 16:02: Troponin T Hi Sens 4Hr 228 H* 06/06/25 04:20: WBC 4.3 L, RBC 4.45, Hgb 12.2, Hct 38.8, MCV 87.2, MCH 27.4, M CHC 31.4 L, RDW Std Deviation 57.8 H, RDW Coeff of Sona 18.5 H, Plt Count 148 L, MPV 9.3, Immature Gran % (Auto) 0.200, Neut % (Auto) 54.8, Lymph % (Auto) 26.9, Rawl[place] % (Auto) 14.4 H, Eos % (Auto) 3.0, Baso % (Auto) 0.7, Absolute Neuts (auto) 2.4, Absolute Lymphs (auto) 1.16, Nucleated RBC % 0, PT 42.3 H, INR 4.3 H*, Sodium 137, Potassium 3.3, Chloride 104, Carbon Dioxide 21.5, Anion Gap 12, BUN 19, Creatinine 1.29 H, Estim Creat Clear Calc 37.99 L, Est GFR (MDRD) Non-Af 45 L, BUN/Creatinine Ratio 15.0, Glucose 86, Hemoglobin A1c 6.2 H, Calcium 9.0, Triglycerides 61, Cholesterol 73, LDL Cholesterol, Calc 26, VLDL Cholesterol 12, HDL Cholesterol 35 L, Cholesterol/HDL Ratio 2.10, TSH 0.818 Physical Exam Narrative General: Alert, Oriented x3, Cooperative, No apparent distress HEENT: Atraumatic, PERRLA, EOMI, Normocephalic Oral: Moist Mucosa Neck: Supple, No JVD Lungs: Diminished, Normal air movement, No rhonchi, No wheeze, No rales Cardiovascular: Regular rate, Regular Rhythm, Normal S1, Normal S2, No murmurs Abdomen: Soft, Non Tender, Non-Distended, No Hepato-splenomegaly Extremities: No edema, Capillary Refill Less than 3 Seconds Skin: No rashes, No breakdown Musculoskeletal: No Tenderness to Palpation of Joints or Extremities Neurological: No focal neurological deficits, moves all extremities, mild aphasia/dysarthria Psych/Mental Status: Normal Affect, Appropriate Assessment & Plan Assessment/Plan (1) Slurred speech: PLAN: Plan 1. Slurred speech with dysphagia ? Unclear if this is a stroke or not as she refuses MRI because of her pacemaker and refuses repeat CT scan because today she already had 1 she says ? Speech therapy will see her in the morning ? Plan for EGD today to evaluate her dysphagia ? Can discontinue NIH as ? Appreciate neurology's assistance ? PT/OT 2. Chronic systolic CHF/mechanical mitral valve/A-fib/history of HOCUM ? She did have a elevated troponin however this is baseline and of no significance ? Continue with her Coumadin ? Continue to monitor INR ? Last echocardiogram with an EF of 35% ? Continue with her home blood pressure medications 3. CKD 3 ? Renal function appears at baseline 4. Anxiety/depression ? Stable ? Continue with her home medications 5. GERD ? Stable ? Continue with PPI DVT: Coumadin Charges/Coding Visit Charges Inpatient E&M: 82545 Subs Hosp L2 NIHSS NIHSS Nursing Documentation NIHSS Nursing Documentation: NIHSS: Ischemic Stroke/TIA Start: 06/05/25 15:42 Text: For PCU Patients: NIH and Neuro Check every 4 Status: Complete hours, PRN and with change in RN caregiver. Freq: [id number] Protocol: Activity Type Activity Date Activity User E-sign Co-sign Detail Recorded Client Recorded Date Recorded By Document 06/06/25 11:27 Monica 0 06/06/25 11:26 SAMREEN 06/06/25 11:27 NIH Stroke Scale [NIHSS] A score of 0 is normal or asymptomatic . Total possible score is 42. Inpatient: RN or Physician to activate a stroke alert for onset of new stroke symptoms or with NIHSS increase >/= 3 points. Following change in neurological status, NIHSS will be performed per physician order or more frequently PRN. -1a. Level of Consciousness 0 - Alert; keenly responsive -1b. LOC Questions 0 - Answers BOTH questions correctly -1c. LOC Commands 0 - Performs BOTH tasks correctly -2. Best Gaze 0 - Normal -3. Visual 0 - No visual loss -4. Facial Palsy 0 - Normal symmetrical movements -5a. Left Arm 0 - No drift; arm holds 90 ( or 45) degrees for full 10 seconds -5b. Right Arm 0 - No drift; arm holds 90 ( or 45) degrees for full 10 seconds -6a. Left Leg 0 - No drift; leg holds 30- degree position for full 5 seconds -6b. Right Leg 0 - No drift; leg holds 30- degree position for full 5 seconds -7. Limb Ataxia 0 - Absent -8. Sensory 0 - Normal; no sensory loss -9. Best Language 0 - No aphasia; normal -10. Dysarthria 1 = Mild-to- moderate dysarthria; -11. Extinction and Inattention 0 - No abnormality -Total 1 Query Text:A score of 0 is normal or asymptomatic. Total possible score is 42 . ED: Notify Physician for NIHSS increase by > / = 3 points. Inpatient: RN or Physician to activate a stroke alert for NIHSS increase of > / = 3 points. Coma Scale [Assess] -Eye Opening Spontaneous -Motor Obeys Commands -Verbal Oriented [Total] -Coma Scale Total 15
--- NOTE | 2025-06-06 15:29 | OP.EGD_ITS ---
Patient Name: Em Wu Procedure Date: 06/06/2025 2:49 PM Date of : 1955 Age: 69 Procedure: Upper GI endoscopy Indications: Dysphagia Providers: Gildardo Robertson DO Medicines: Monitored Anesthesia Care Patient Profile: This is a 69 year old female. Refer to note in patient chart for documentation of history and physical. Patient has symptoms of dysphagia with both liquids and solids. Complications: No immediate complications. Procedure: Pre-Anesthesia Assessment: - Prior to the procedure, a History and Physical was performed, and patient medications and allergies were reviewed. The patient is competent. The risks and benefits of the procedure and the sedation options and risks were discussed with the patient. All questions were answered and informed consent was obtained. Patient identification and proposed procedure were verified by the physician in the pre-procedure area. Mental Status Examination: alert and oriented. Airway Examination: normal oropharyngeal airway and neck mobility. Respiratory Examination: clear to auscultation. CV Examination: normal. Prophylactic Antibiotics: The patient does not require prophylactic antibiotics. Prior Anticoagulants: The patient has taken no anticoagulant or antiplatelet agents. ASA Grade Assessment: II - A patient with mild systemic disease. After reviewing the risks and benefits, the patient was deemed in satisfactory condition to undergo the procedure. The anesthesia plan was to use monitored anesthesia care (MAC). Immediately prior to administration of medications, the patient was re-assessed for adequacy to receive sedatives. The heart rate, respiratory rate, oxygen saturations, blood pressure, adequacy of pulmonary ventilation, and response to care were monitored throughout the procedure. The physical status of the patient was re-assessed after the procedure. After obtaining informed consent, the endoscope was passed under direct vision. Throughout the procedure, the patient's blood pressure, pulse, and oxygen saturations were monitored continuously. The Endoscope was introduced through the mouth, and advanced to the second part of duodenum. The upper GI endoscopy was accomplished without difficulty. The patient tolerated the procedure well. Scope In: 3:13:03 PM Scope Out: 3:17:17 PM Total Procedure Duration Time 0 hours 4 minutes 14 seconds Findings: Grade II caustic esophagitis was found in the lower third of the esophagus. Biopsies were taken with a cold forceps for histology. Verification of patient identification for the specimen was done. Estimated blood loss: none. Biopsies were taken with a cold forceps for histology. Verification of patient identification for the specimen was done. Estimated blood loss was minimal. The entire examined stomach was normal. Biopsies were taken with a cold forceps for histology. Verification of patient identification for the specimen was done. Estimated blood loss was minimal. The examined duodenum was normal. Abnormal motility was noted in the esophagus. The cricopharyngeus was abnormal. There are extra peristaltic waves in the esophageal body. The distal esophagus/lower esophageal sphincter is spastic, but gives up passage to the endoscope. Tertiary peristaltic waves are noted. Impression: - Grade II caustic esophagitis. Biopsied. - Normal stomach. Biopsied. - Normal examined duodenum. Recommendation: - Discharge patient to home. - Resume previous diet. - Continue present medications. - Await pathology results. Procedure Code(s): --- Professional --- 50274, Esophagogastroduodenoscopy, flexible, transoral; with biopsy, single or multiple CPT copyright 2021 [employer]. All rights reserved. The codes documented in this report are preliminary and upon dental hygienist review may be revised to meet current compliance requirements. Gildardo Robertson DO 06/06/2025 3:28:45 PM This report has been signed electronically. Number of Addenda: 0 Note Initiated On: 06/06/2025 2:49 PM
--- NOTE | 2025-06-06 15:29 | OP.PROVAT_ITS ---
06/06/2025 Roseline Barakat Md Re : Upper GI endoscopy procedure for Em Wu Dear Yuval This procedure was performed on Friday, June 06, 2025. My impressions and recommendations are as follows: Impressions : - Grade II caustic esophagitis. Biopsied. - Normal stomach. Biopsied. - Normal examined duodenum. Recommendations : - Discharge patient to home. - Resume previous diet. - Continue present medications. - Await pathology results. My findings are described in the full procedure note, which is enclosed. If I can be of further assistance, please feel free to contact me at . Sincerely, Gildardo Robertson, 06/06/2025 3:28:45 PM This report has been signed electronically.
--- NOTE | 2025-06-06 15:30 | PCM.POST.ANE ---
Anesthesia: Postop Eval I Current Vital Signs Temperature: 97.7 F Pulse Rate: 71 Blood Pressure: 95/66 Respiratory Rate: 20 Pulse Ox: 93 Oxygen Delivery Method: Nasal Cannula Oxygen Flow Rate (L/min): 4 Assessment Airway patent: Yes Spontaneous unlabored respirations: Yes Mental status: Asleep nausea: No Vomiting: No Anesthesia Complication: No Fluid Hydration Crystalloid volume administer (ml): 300 Total IV fluid infused: 300 Progress Note Anesthesia document: Postop Eval 1 completed: Yes
--- NOTE | 2025-06-06 15:38 | CASEMGMT ---
Social Work Per physician note pt negative for stroke, therefore PHQ9 not completed. SORAYA Oneill
--- NOTE | 2025-06-06 15:56 | POSTOPAN2_ITS ---
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 CASING AND DRYING SUPERVISOR.[email or web address] Spontaneous unlabored Yes 06/06/25 15:30 COOKING CASING AND DRYING SUPERVISOR.[email or web address] respirations Mental status Asleep 06/06/25 15:30 COOKING CASING AND DRYING SUPERVISOR.PKEL nausea No 06/06/25 15:30 COOKING CASING AND DRYING SUPERVISOR.[email or web address] Vomiting No 06/06/25 15:30 COOKING CASING AND DRYING SUPERVISOR.[email or web address] Anesthesia Postop Eval I: Fluid Summary Crystalloid volume administer 300 06/06/25 15:30 COOKING CASING AND DRYING SUPERVISOR.PKEL (ml) Colloids volume administered ( ml) Blood Product volume administered (ml) Total IV fluid infused 300 06/06/25 15:30 COOKING CASING AND DRYING SUPERVISOR.[email or web address] Anesthesia Postop Eval I: Summary Notes Anesthesia Complication No 06/06/25 15:30 COOKING CASING AND DRYING SUPERVISOR.[email or web address] Anesthesia Complication Comment: Post-operative progress note Anesthesia: Postop Eval II Evaluation Mental status: Awake and Calm Pain Level: 1 nausea: No Vomiting: No Complications Anesthesia Complication: No
--- NOTE | 2025-06-06 15:56 | PCM.POSTANE2 ---
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.[email or web address] Spontaneous unlabored Yes 06/06/25 15:30 VICE PRESIDENT INVESTOR RELATIONS.PKEL respirations Mental status Asleep 06/06/25 15:30 VICE PRESIDENT INVESTOR RELATIONS.PKEL nausea No 06/06/25 15:30 VICE PRESIDENT INVESTOR RELATIONS.PKEL Vomiting No 06/06/25 15:30 VICE PRESIDENT INVESTOR RELATIONS.PKEL Anesthesia Postop Eval I: Fluid Summary Crystalloid volume administer 300 06/06/25 15:30 VICE PRESIDENT INVESTOR RELATIONS.PKEL (ml) Colloids volume administered ( ml) Blood Product volume administered (ml) Total IV fluid infused 300 06/06/25 15:30 VICE PRESIDENT INVESTOR RELATIONS.[email or web address] Anesthesia Postop Eval I: Summary Notes Anesthesia Complication No 06/06/25 15:30 VICE PRESIDENT INVESTOR RELATIONS.[email or web address] Anesthesia Complication Comment: Post-operative progress note Anesthesia: Postop Eval II Evaluation Mental status: Awake and Calm Pain Level: 1 nausea: No Vomiting: No Complications Anesthesia Complication: No
--- NOTE | 2025-06-06 17:03 | PN_ITS ---
Progress Note Patient underwent an upper endoscopy. She was discovered to have severe pill induced esophagitis in the setting of a motility dysfunction resulting in poor laxation of the distal esophagus. 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 She would benefit from speech evaluation to determine the severity of her oropharyngeal dysphagia and she will need manomet ry as an outpatient to fully evaluate her esophageal dysphagia. Also, her distal esophagus was biopsied around the area of the pill induced esophagitis. Physical Exam Narrative General: Alert, Oriented x3, Cooperative, No apparent distress HEENT: Atraumatic, PERRLA, EOMI, Normocephalic Oral: Moist Mucosa Neck: Supple, No JVD Lungs: Diminished, Normal air movement, No rhonchi, No wheeze, No rales Cardiovascular: Regular rate, Regular Rhythm, Normal S1, Normal S2, No murmurs Abdomen: Soft, Non Tender, Non-Distended, No Hepato-splenomegaly Extremities: No edema, Capillary Refill Less than 3 Seconds Skin: No rashes, No breakdown Musculoskeletal: No Tenderness to Palpation of Joints or Extremities Neurological: No focal neurological deficits, moves all extremities, mild aphasia/dysarthria Psych/Mental Status: Normal Affect, Appropriate Assessment & Plan Assessment/Plan (1) Dysphagia: PLAN: Follow-up in office: [7 days] Okay to continue Coumadin tomorrow New GI related medications for discharge: [Preferable Carafate liquid 1 g 3 times daily. If she can only get the pills then it could be 1 g crushed 3 times daily and Protonix 40 mg p.o. twice daily] Follow-up procedures needed: [Esophageal manometry and speech and swallow evaluation with video swallow] Visit Charges Inpatient E&M: [id number] [place] [id number]
[2025-06-07 00:03] VITALS: BMI 21.4
[2025-06-07 00:08] VITALS: BP 96/57; PULSE 70; RESP 16; TEMP 36.8; O2SAT 99
[2025-06-07 04:28] VITALS: BMI 21.3
[2025-06-07 05:56] VITALS: BP 107/69; PULSE 70; RESP 16; TEMP 36.9; O2SAT 96
[2025-06-07 06:37] LABS: Prothrombin Time (Protime)PT. 34.6 SECONDS (11.7-14.9)
[2025-06-07 07:29] VITALS: PULSE 75; RESP 16; O2SAT 91
[2025-06-07] MEDS: Albuterol 2.5 MG/3 ML VIAL.NEB. INHALATION (07:29)
[2025-06-07] MEDS: Budesonide Respules 0.5 MG/2 ML AMPUL.NEB. INHALATION (07:29)
--- NOTE | 2025-06-07 08:47 | CPS ---
Patient was on ASV machine with 1lpm bleed in.
[2025-06-07 09:33] VITALS: BP 111/71; PULSE 70; RESP 16; TEMP 36.6; O2SAT 99
[2025-06-07 09:36] VITALS: BP 111/71; PULSE 70
[2025-06-07] MEDS: Metoprolol(XL)Succ 25 MG Tablet PO (09:36)
[2025-06-07 10:01] LABS: Mucous, Urine 0 SEEN /hpf (<or=2+); Red Blood Cells-Urine 0 SEEN /hpf (0-5)
[2025-06-07 10:11] LABS: Color, Urine Yellow (Yellow); Glucose, Dipstick 1000 mg/dl (Normal); Ketone-Dipstick Negative (Negative); Leukocyte Esterase-Dipstick Negative /ul (Negative); Nitrite-Dipstick Negative (Negative); Occult Blood-Urine Negative /ul (Negative); Protein-Dipstick 30 mg/dl (Negative); Specific Gravity, Urine 1.015 (1.002-1.030); Urine Bilirubin Dipstick Negative (Negative)
[2025-06-07 10:23] LABS: Squamous Epithelial Cells - UA 0-5 SEEN /hpf (5-10)
--- NOTE | 2025-06-07 10:35 | DCINST_ITS ---
Discharge Instructions DC O2, CPAP, BIPAP needs Home O2 Discharge instructions: No Dressing / Incision Discharge Activity: Return to Normal Activity Dressing / Incision Call your doctor if you observe: Fever of 101 or Higher, Shortness of breath, Dizziness, Fainting spells, Swelling in the ankles, Chest pain and Increased palpitations (irregular heartbeat) Follow Up Care Test Results: Test results from this visit will be discussed in further detail at your follow- up appointment, if applicable. Discharge Plan Admission Admit Date/Time: 06/05/25 13:47 Attending Provider: Berto Baptiste Primary Care Provider: Roseline Barakat Consulting Providers: Herb Wen; Gildardo Robertson; Liset Hanson; Eliza Tellez; Mariela Wylie; Edu Fletcher; Concepcion Rosenberg; Mel Ochoa; Ele Matthews; Jenelle Henson; Ian Smith; Jaylin Mchugh; Delvis Latham; Yordy Vázquez; Joshua Brito; Ana Arriaza; Lelo Zurita; Monty Mcgrath; Yanique Goins; Sy Heath; Keke Underwood; Jose Collins; Angelica Escobar; Trino Lind; Lauren Falcon; Jourdan Brice; Kourtney Gallagher Discharge Orders/Prescriptions Prescriptions: New atorvastatin 80 mg Tablet 80 mg PO QHS 30 Days Qty: 30 0RF Continued warfarin 1 mg tablet 1 mg PO .COMPLEX Protocol: Dose Management Condition: Wednesday Dose/Route: 5 mg Instruction: 1 x 5 mg tablet Condition: Wednesday Dose/Route: 5 mg Instruction: 1 x 5 mg tablet Condition: Wednesday Dose/Route: 5 mg Instruction: 1 x 5 mg tablet Condition: Wednesday Dose/Route: 10 mg Instruction: 2 x 5 mg tablets Condition: Dose/Route: 5 mg Instruction: 1 x 5 mg tablet Condition: Wednesday Dose/Route: 5 mg Instruction: 1 x 5 mg tablet Condition: Wednesday Dose/Route: 5 mg Instruction: 1 x 5 mg tablet Protocol Text: Adjustment Start Date: Wednesday04/30/25 INR Value: 3.4 INR Date: 04/30/25 Recheck Date: 05/07/25 Rx Instructions: 1 mg orally as directed for dose changes; Managed by PCP spironolactone 25 mg tablet 25 mg PO DAILY Qty: 90 3RF Rx Instructions: Hold for serum potassium more than 5.0 albuterol sulfate 90 mcg/actuation HFA aerosol inhaler 2 puff inhalation Q4H PRN (Reason: shortness of breath or wheezing) Qty: 8.5 11RF budesonide-formoterol [Symbicort] 160-4.5 mcg/actuation HFA aerosol inhaler 2 inh inhalation BID Qty: 1 11RF Rx Instructions: administer with spacer, rinse mouth after each use albuterol sulfate 2.5 mg /3 mL (0.083 %) solution for nebulization 2.5 mg inhalation Q4H PRN (Reason: Sob &/Or Wheezing) Qty: 180 3RF metoprolol succinate 100 mg tablet extended release 24 hr 50 mg PO QDAY torsemide 20 mg tablet 20 mg PO DAILY Qty: 180 3RF montelukast 10 mg tablet 10 mg PO QPM ASV - Adaptive Servo Ventilation ([facility] INFORMATIONAL USE ONLY) Patient Comments: Per Jessika Bauer FUDGE CANDY MAKER: ASV EPAP 5 cmH2O, pressure support 4 to 20 cm of water (DME) spacer See Rx Instructions .ROUTE .MEDSUPPLY Qty: 1 0RF Rx Instructions: As directed warfarin 5 mg tablet 5 mg PO DAILY Qty: 100 3RF Protocol: Dose Management Condition: Wednesday Dose/Route: 5 mg Instruction: 1 x 5 mg tablet Condition: Wednesday Dose/Route: 5 mg Instruction: 1 x 5 mg tablet Condition: Wednesday Dose/Route: 5 mg Instruction: 1 x 5 mg tablet Condition: Wednesday Dose/Route: 10 mg Instruction: 2 x 5 mg tablets Condition: Dose/Route: 5 mg Instruction: 1 x 5 mg tablet Condition: Wednesday Dose/Route: 5 mg Instruction: 1 x 5 mg tablet Condition: Wednesday Dose/Route: 5 mg Instruction: 1 x 5 mg tablet Protocol Text: Adjustment Start Date: Wednesday04/30/25 INR Value: 3.4 INR Date: 04/30/25 Recheck Date: 05/07/25 Patient Comments: daughter states takes 5mg daily and occasionally gets bumped up to 7.5mg but not often Rx Instructions: Take 1 tab (5mg) Sun/Mon/Wed/Fri/Sat and 0.5 tab (2.5mg) Tu/Th.; or use as directed dapagliflozin propanediol [Farxiga] 10 mg tablet 10 mg PO DAILY Qty: 90 3RF (DME) Disability Parking Placard See Rx Instructions .Route .MEDSUPPLY Qty: 1 0RF Rx Instructions: As directed pantoprazole 40 mg tablet,delayed release (DR/EC) 40 mg PO QDAY Qty: 90 3RF Referrals / Follow Up: Roseline Barakat MD [Primary Care Provider, Internal Medicine] - Within 1 Week FriendGildardo DO [Med Staff - Active Staff, Gastroenterology] - Within 1 Month Disposition Disposition (needs filled in before D/C Order can be placed): Home, Self Care
[2025-06-07] MEDS: 0.9% Saline Lock 10 ML Syringe IV (10:37)
[2025-06-07 10:39] VITALS: BP 121/66; PULSE 69; RESP 16; TEMP 36.5; O2SAT 100
[2025-06-07] MEDS: Pantoprazole Sodium 40 MG in 0.9% Normal Saline (100mL MB+) 100 ML 300 MG IV (10:39)
--- NOTE | 2025-06-07 11:55 | PHA.DC_ITS ---
Pharmacy [facility] has performed discharge medication counseling for this patient. The patient was counseled on the following discharge medications and changes in medications for homegoing review. - Atorvastatin 80 mg tablet The Reason for Use, instructions for use, and potential side effects were reviewed for all new medications. The patient was able to verbally demonstrate an understanding of their discharge medications. I talked to the patient's daughter and she is against starting her mother on atorvastatin at this time and will not brick picker the medication until after she has talked to Dr. Barajas at her appointment in 2 weeks. We discussed side effects of the medication, the indication, her past history of TIA's with low INRs, current imaging results, and mechanism of action of atorvastatin in the multiple pathways that it exerts its effects to lower strokes. Medications at Discharge Home Medications spacer #1 ea 11/26/22 warfarin 1 mg tablet 1 mg PO .COMPLEX blood thinner 12/03/22 spironolactone 25 mg tablet 25 mg PO DAILY diuretic #90 tabs 12/12/24 warfarin 5 mg tablet 5 mg PO DAILY blood thinner #100 tabs 01/04/25 albuterol sulfate 90 mcg/actuation aerosol inhaler 2 puff inhalation Q4H PRN shortness of breath or wheezing #8.5 grams 01/09/25 budesonide-formoterol HFA 160 mcg-4.5 mcg/actuation aerosol inhaler (Symbicort) 2 inh inhalation BID #1 ea 01/09/25 torsemide 20 mg tablet 20 mg PO DAILY #180 tabs 01/26/25 albuterol sulfate 2.5 mg/3 mL (0.083 %) solution for nebulization 2.5 mg (3 mL) inhalation Q4H PRN Sob &/Or Wheezing #180 mL 02/08/25 dapagliflozin propanediol 10 mg tablet (Farxiga) 10 mg PO DAILY diabetes #90 tabs 02/14/25 Disability Parking Placard #1 ea 05/07/25 pantoprazole 40 mg tablet,delayed release 40 mg PO QDAY #90 tabs 05/09/25 metoprolol succinate 100 mg tablet,extended release 24 hr 50 mg PO QDAY blood pressure 05/31/25 montelukast 10 mg tablet 10 mg PO QPM 06/05/25 ASV - Adaptive Servo Ventilation ([facility] INFORMATIONAL USE ONLY) chapis 06/07/25 atorvastatin 80 mg tablet 80 mg PO QHS 30 days #30 tabs 06/07/25
--- NOTE | 2025-06-07 15:32 | DS.PCM_ITS ---
Providers Date of Admission: 06/05/25 Primary Care Physician: Dr. Roseline Barakat MD Consultations 06/05/25 15:42 Consult: Gastroenterology Routine Consulting Provider: [facility] Reason for Consult: dysphagia/sticking feeling to solids and liquids x2 days EMERGENT Consult: No Notified: Yes Date Notified: 06/05/25 Time Notified: 15:49 Method of Notification: Text Consult: Tele-Neurology Routine Consulting Provider: [facility] Reason for Consult: Acute Ischemic Stroke/TIA EMERGENT Consult: No Notified: Yes Date Notified: 06/05/25 Time Notified: 15:43 Method of Notification: Answering Service Nursing Unit Staff Notify [facility] of Tele-Neurology Consult: Yes Reason For Visit: CVA R/S, DYSPHAGIA Diagnosis Discharge Diagnosis (1) Dysphagia: Status: Acute Code(s): R13.10 - Dysphagia, unspecified Medications at Discharge Home Medications spacer #1 ea 11/26/22 warfarin 1 mg tablet 1 mg PO .COMPLEX blood thinner 12/03/22 spironolactone 25 mg tablet 25 mg PO DAILY diuretic #90 tabs 12/12/24 warfarin 5 mg tablet 5 mg PO DAILY blood thinner #100 tabs 01/04/25 albuterol sulfate 90 mcg/actuation aerosol inhaler 2 puff inhalation Q4H PRN shortness of breath or wheezing #8.5 grams 01/09/25 budesonide-formoterol HFA 160 mcg-4.5 mcg/actuation aerosol inhaler (Symbicort) 2 inh inhalation BID #1 ea 01/09/25 torsemide 20 mg tablet 20 mg PO DAILY #180 tabs 01/26/25 albuterol sulfate 2.5 mg/3 mL (0.083 %) solution for nebulization 2.5 mg (3 mL) inhalation Q4H PRN Sob &/Or Wheezing #180 mL 02/08/25 dapagliflozin propanediol 10 mg tablet (Farxiga) 10 mg PO DAILY diabetes #90 tabs 02/14/25 Disability Parking Placard #1 ea 05/07/25 pantoprazole 40 mg tablet,delayed release 40 mg PO QDAY #90 tabs 05/09/25 metoprolol succinate 100 mg tablet,extended release 24 hr 50 mg PO QDAY blood pressure 05/31/25 montelukast 10 mg tablet 10 mg PO QPM 09/23/25 ASV - Adaptive Servo Ventilation (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 Last known well was around 9 PM last evening. She woke up at 9 AM and had some slurred speech. Per family INR yesterday 4.3. Patient denied any focal weakness but balance is somewhat off today. In the ED temp 98.7, heart rate 75, blood pressure initially 76/64, respiratory rate 16 pulse ox 96% on room air. CBC with white count 4.9 and hemoglobin 12.5, INR 3.9, BUN of 26 and creatinine 1.55 which appears to be baseline. Troponin 228. Patient was a stroke call in the ED, she was outside the window for any intervention and had a therapeutic INR, teleneurology recommended admission for stroke workup. Hospitalist contacted for admission. Patient evaluated at bedside, reports she went to bed as above and woke up with slurred speech and feeling off balance. Reports she is pretty much back to normal at the time of evaluation in the ED. Reports main complaint now is that for 2 days she has had difficulty with swallowing, she feels like food gets stuck in the center of her chest and is noticeable with liquids and solids and she feels a burning when she tries, no overt abdominal pain, no chest pain that does not associate with swallowing, has remote history of esophageal dilation many years ago but nothing recently, she notes that if she does not eat or drink this feeling eventually goes away on its own. Has some chronic diarrhea that is not changed, no changes in urination, no shortness of breath or cough, no numbness, weakness, tingling, fever, headache, changes in vision. Hospital Course: 1. Slurred speech with dysphagia?69-year-old female presented to the hospital with slurred speech and dysphagia with concerns for CVA. CT scan was unremarkable and she cannot have an MRI because of pacemaker and she refused a CT scan after 24 hours because she did not want to have another 1 therefore we discontinued NIHs. For her dysphagia gastroenterology was consulted today. Proceeded with an EGD that demonstrated esophagitis, she is already on a PPI so this will be continued as an outpatient I recommend outpatient follow-up with gastroenterology. She was evaluated by speech who recommended an easy to chew diet with thin liquids. She says that her speech is much better today and she no longer has any significant dysarthria will continue with Lipitor on discharge but will hold off on any aspirin secondary to the fact that she is on Coumadin for her mechanical mitral valve and A-fib history. I discussed with her the plan for discharge today and she expressed understanding of the risk and benefits of going home and would like to go home today. Unfortunately prior to discharge I did miss the note from gastroenterology recommending Carafate and twice daily PPI so I will send these into her pharmacy. 2. Chronic systolic CHF, mechanical mitral valve, A-fib, history of HOCM, CKD 3, anxiety, depression, GERD are all chronic medical conditions which complicate her care. Her home medications were continued where appropriate Physical Exam Narrative General: Alert, Oriented x3, Cooperative, No apparent distress HEENT: Atraumatic, PERRLA, EOMI, Normocephalic Oral: Moist Mucosa Neck: Supple, No JVD Lungs: Diminished, Normal air movement, No rhonchi, No wheeze, No rales Cardiovascular: Regular rate, Regular Rhythm, Normal S1, Normal S2, No murmurs Abdomen: Soft, Non Tender, Non-Distended, No Hepato-splenomegaly Extremities: No edema, Capillary Refill Less than 3 Seconds Skin: No rashes, No breakdown Musculoskeletal: No Tenderness to Palpation of Joints or Extremities Neurological: No focal neurological deficits, moves all extremities, minimaldysarthria Psych/Mental Status: Normal Affect, Appropriate Weight / BMI Weight Weight: 132 lb 0.91 oz Body Mass Index (BMI) 21.3 ABG / Lab / Microbiology Data 06/06/25 04:20 06/06/25 04:20 Laboratory: Laboratory Results - last 24 hr 06/07/25 05:55: PT 34.6 H, INR 3.3 06/07/25 09:50: Urine Color Yellow, Urine Clarity Sl. Cloudy, Urine pH 6.0, Ur Specific [place] 1.015, Urine Protein 30 H, Urine Glucose (UA) 1000 H, Urine Ketones Negative, Urine Occult Blood Negative, Urine Nitrite Negative, Urine Bilirubin Negative, Urine Urobilinogen 4 H, Ur Leukocyte Esterase Negative, Urine RBC 0 SEEN, Urine WBC 0 SEEN, Ur Squamous Epith Cells 0-5 SEEN, Urine Bacteria 0 SEEN, Urine Mucus 0 SEEN D/C Instructions Call your doctor if you observe: Fever of 101 or Higher, Shortness of breath, Dizziness, Fainting spells, Swelling in the ankles, Chest pain and Increased palpitations (irregular heartbeat) DC O2, CPAP, BIPAP Needs Home O2 Discharge instructions: No Meaningful Use Info Meaningful Use Meaningful Use Diagnoses (Choose all that apply): None applicable Discharge Plan Admission Admit Date/Time: 06/05/25 13:47 Attending Provider: Berto Baptiste Primary Care Provider: Roseline Barakat Consulting Providers: Herb Wen; Gildardo Robertson; Liset Hanson; Eliza Farah; Mariela Wylie; Edu Fletcher; Concepcion Rosenberg; Mel Ochoa; Ele Matthews; Jenelle Henson; Ian Smith; Jaylin Mchugh; Delvis Latham; Yordy Vázquez; Joshua Brito; Ana Ariraza; Lelo Zurita; Monty Mcgrath; Yanique Goins; Sy Heath; Keke Underwood; Jose Collins; Angelica Escobar; Trino Lind; Lauren Falcon; Jourdan Brice; Kourtney Gallagher Discharge Orders/Prescriptions Prescriptions: New atorvastatin 80 mg Tablet 80 mg PO QHS 30 Days Qty: 30 0RF Continued warfarin 1 mg tablet 1 mg PO .COMPLEX Protocol: Dose Management Condition: Wednesday Dose/Route: 5 mg Instruction: 1 x 5 mg tablet Condition: Wednesday Dose/Route: 5 mg Instruction: 1 x 5 mg tablet Condition: Wednesday Dose/Route: 5 mg Instruction: 1 x 5 mg tablet Condition: Wednesday Dose/Route: 10 mg Instruction: 2 x 5 mg tablets Condition: Dose/Route: 5 mg Instruction: 1 x 5 mg tablet Condition: Wednesday Dose/Route: 5 mg Instruction: 1 x 5 mg tablet Condition: Wednesday Dose/Route: 5 mg Instruction: 1 x 5 mg tablet Protocol Text: Adjustment Start Date: Wednesday04/30/25 INR Value: 3.4 INR Date: 04/30/25 Recheck Date: 05/07/25 Rx Instructions: 1 mg orally as directed for dose changes; Managed by PCP spironolactone 25 mg tablet 25 mg PO DAILY Qty: 90 3RF Rx Instructions: Hold for serum potassium more than 5.0 albuterol sulfate 90 mcg/actuation HFA aerosol inhaler 2 puff inhalation Q4H PRN (Reason: shortness of breath or wheezing) Qty: 8.5 11RF budesonide-formoterol [Symbicort] 160-4.5 mcg/actuation HFA aerosol inhaler 2 inh inhalation BID Qty: 1 11RF Rx Instructions: administer with spacer, rinse mouth after each use albuterol sulfate 2.5 mg /3 mL (0.083 %) solution for nebulization 2.5 mg inhalation Q4H PRN (Reason: Sob &/Or Wheezing) Qty: 180 3RF metoprolol succinate 100 mg tablet extended release 24 hr 50 mg PO QDAY torsemide 20 mg tablet 20 mg PO DAILY Qty: 180 3RF montelukast 10 mg tablet 10 mg PO QPM ASV - Adaptive Servo Ventilation (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: ASV EPAP 5 cmH2O, pressure support 4 to 20 cm of water (DME) spacer See Rx Instructions .ROUTE .MEDSUPPLY Qty: 1 0RF Rx Instructions: As directed warfarin 5 mg tablet 5 mg PO DAILY Qty: 100 3RF Protocol: Dose Management Condition: Wednesday Dose/Route: 5 mg Instruction: 1 x 5 mg tablet Condition: Wednesday Dose/Route: 5 mg Instruction: 1 x 5 mg tablet Condition: Wednesday Dose/Route: 5 mg Instruction: 1 x 5 mg tablet Condition: Wednesday Dose/Route: 10 mg Instruction: 2 x 5 mg tablets Condition: Dose/Route: 5 mg Instruction: 1 x 5 mg tablet Condition: Wednesday Dose/Route: 5 mg Instruction: 1 x 5 mg tablet Condition: Wednesday Dose/Route: 5 mg Instruction: 1 x 5 mg tablet Protocol Text: Adjustment Start Date: Wednesday04/30/25 INR Value: 3.4 INR Date: 04/30/25 Recheck Date: 05/07/25 Patient Comments: daughter states takes 5mg daily and occasionally gets bumped up to 7.5mg but not often Rx Instructions: Take 1 tab (5mg) Sun/Wed/Wed/Wed/Sat and 0.5 tab (2.5mg) /.; or use as directed dapagliflozin propanediol [Farxiga] 10 mg tablet 10 mg PO DAILY Qty: 90 3RF (DME) Disability Parking Placard See Rx Instructions .Route .MEDSUPPLY Qty: 1 0RF Rx Instructions: As directed pantoprazole 40 mg tablet,delayed release (DR/EC) 40 mg PO QDAY Qty: 90 3RF Referrals / Follow Up: Roseline Barakat MD [Primary Care Provider, Internal Medicine] - 06/11/25 1:00 pm Referral Note: APPOINTMENT WITH NURSE PRACTIONER Gildardo Suh DO [Med Staff - Active Staff, Gastroenterology] - 07/09/25 9:00 am Referral Note: APPOINTMENT WITH NURSE PRACTIONER ELIZA FARAH. NEW PATIENT BRING ID AND INSURANCE CARD Disposition Disposition (needs filled in before D/C Order can be placed): Home, Self Care Charges/Coding Visit Charges Inpatient E&M: 74123 Disch Hosp >30min
== END 2025-06-07 14:48 | disposition home or self-care (01) | DRG 392 ==
LOC: ED 13:37 → PCU 13:51
PROVIDERS: Anesthesiology; Internal Medicine Gastroenterology; Admitting Provider Internal Medicine; Emergency Provider Emergency Medicine; PCP Internal Medicine; Visit Provider Family Medicine
PROC: 0DJ08ZZ Inspection of Upper Intestinal Tract, Via Natural or Artificial Opening Endoscopic (ICD-10-PCS; CPT 43235; principal; 2025-06-06 14:55)
DX: K22.4 Dyskinesia of esophagus (principal); I42.1 Obstructive hypertrophic cardiomyopathy; I50.22 Chronic systolic (congestive) heart failure; N18.32 Chronic kidney disease, stage 3b; F32.A Depression, unspecified; I69.391 Dysphagia following cerebral infarction; Z95.2 Presence of prosthetic heart valve; I48.91 Unspecified atrial fibrillation; K20.80 Other esophagitis without bleeding; I25.10 Atherosclerotic heart disease of native coronary artery without angina pectoris; G47.33 Obstructive sleep apnea (adult) (pediatric); F41.9 Anxiety disorder, unspecified; R47.81 Slurred speech; R13.12 Dysphagia, oropharyngeal phase; R13.19 Other dysphagia; Z95.0 Presence of cardiac pacemaker; Z79.01 Long term (current) use of anticoagulants; Z79.51 Long term (current) use of inhaled steroids; Z79.899 Other long term (current) drug therapy; Z87.891 Personal history of nicotine dependence
CPT/HCPCS: 36415; 70450; 70496; 70498; 80048; 80061; 81001; 82962; 83036; 84443; 84484; 85025; 85610; 85730; 88305; 88312; 88341; 88342; 92522; 92610; 93005; 94002; 94003; 94640; 94762; 97162; 97166; 99285; Q9967; A4216

== ENCOUNTER 2025-06-18 11:49 | Outpatient (RCR) | payer MEDICARE, OTHER, SELFPAY ==
--- NOTE | 2025-06-18 16:45 | HP.SP.EV_ITS ---
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 RX HERE Medical Diagnosis: Dysphagia Date of Onset of Diagnosis: Several years ago per patient. Previous speech therapy: Yes Results: One time evaluation in the hospital with recommended easy to chew and thin liquids with small bites/sips and liquid wash. Other Relevant Medical History/Diagnoses/Surgery: Patient attended evaluation independently with a diagnosis of dysphagia. Patient was admitted to [facility] on 06/05/2025 for slurred speech with dysphagia to r/o CVA and discharged home 06/07/2025. Brain CT with chronic changes and no acute findings. She was seen by GI while in the hospital and a scope was done. GI consult information during admit: Upon interview with pt, she admits to having esophageal dysphagia to both solids and liquids. This has been on going for at least a month but has progressively become worse over the past two days. When she swallows food bolus feels stuck in her distal esophagus. It does eventually pass and she does not endorse regurgitation and/or vomiting. In the past, she has had difficulty swallowing when she is hyperthyroid however this feels much different as it is not oropharyngeal. In 2021, pt had gastric ulcers and required a blood transfusion and has been on pantoprazole daily since. She had esophageal dilation over 10 years ago but does not recall if she was having swallowing issues at that time. EGD: Grade II caustic esophagitis was found in the lower third of the esophagus. Abnormal motility was noted in the esophagus. The cricopharyngeus was abnormal. There are extra peristaltic waves in the esophageal body. The distal esophagus/lower esophageal sphincter is spastic, but gives up passage to the endoscope. Tertiary peristaltic waves are noted. 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) Warfarin-induced coagulopathy Hypoxia Congestive heart failure Collar bone fracture Pacemaker A-fib Hypertrophic cardiomyopathy Medications related to this diagnosis: spacer #1 ea 11/26/22 warfarin 1 mg tablet 1 mg PO .COMPLEX blood thinner 12/03/22 spironolactone 25 mg tablet 25 mg PO DAILY diuretic #90 tabs 12/12/24 warfarin 5 mg tablet 5 mg PO DAILY blood thinner #100 tabs 01/04/25 albuterol sulfate 90 mcg/actuation aerosol inhaler 2 puff inhalation Q4H PRN shortness of breath or wheezing #8.5 grams 01/09/25 budesonide-formoterol HFA 160 mcg-4.5 mcg/actuation aerosol inhaler (Symbicort) 2 inh inhalation BID #1 ea 01/09/25 torsemide 20 mg tablet 20 mg PO DAILY #180 tabs 01/26/25 albuterol sulfate 2.5 mg/3 mL (0.083 %) solution for nebulization 2.5 mg (3 mL) inhalation Q4H PRN Sob &/Or Wheezing #180 mL 02/08/25 dapagliflozin propanediol 10 mg tablet (Farxiga) 10 mg PO DAILY diabetes #90 tabs 02/14/25 Disability Parking Placard #1 ea 05/07/25 pantoprazole 40 mg tablet,delayed release 40 mg PO QDAY #90 tabs 05/09/25 metoprolol succinate 100 mg tablet,extended release 24 hr 50 mg PO QDAY blood pressure 05/31/25 montelukast 10 mg tablet 10 mg PO QPM 06/05/25 ASV - Adaptive Servo Ventilation ([facility] USE ONLY) chapis 06/07/25 atorvastatin 80 mg tablet 80 mg PO QHS 30 days #30 tabs 06/07/25 Smoking Status: Former smoker Diagnosis Diagnosis: Dysphagia. Pain Is pain an issue with your current prescribed condition?: No Personal Preferred language: Burmese Patient Allergies Allergies Allergies: Allergies No Known Allergies Allergy (Verified 06/11/25 12:55) Subjective Articulation/Phonol Subjective Concerns: Patient reported she has slurred speech at times. She stated today her speech was not slurred. Patient was educated to contact physician if she wants to address it as she stated she wants to do dysphagia management first. She will contact physician when she is ready to address possible speech deficits. No slurred speech noted today. Subjective Dysphagia Symptoms Reported Symptoms/Problems with: Difficulty Swallowing Solids and Food gets stuck Current Diet Solids Current Diet: Regular Current Diet Liquids Current Liquids: Thin Objective Dysphagia Thin Liquids Administred via: Cup Bolus clearance: fully cleared Gagging: No Cough: none observed/unable to assess Patient Report: Patient did not report any difficulty with liquids. She stated liquids go down easily and do not get stuck. Pureed Oral Preparation: WNL Bolus clearance: fully cleared Gagging: No Cough: none observed/unable to assess Pharyngeal phase: suspect pharyngeal deficits Patient Report: Patient reported feeling bolus stuck at level of sternum but a liquid wash reduced feeling. Comments: Patient had a delay of 3 seconds when swallowing pureed on 3 trials. Patient unable to answer if it was due to dysphagia or enjoyment of pudding. Regular Oral Preparation: WNL Oral Transit: WNL Bolus clearance: fully cleared Gagging: No Cough: none observed/unable to assess Pharyngeal phase: suspect pharyngeal deficits Patient Report: Patient reported that if she masticates well and takes small bites then food does not feel stuck. Swallowing Impairment Contributing Factors to Swallowing Impairment: Impaired Oral-Pharyngeal Transport and Delayed Swallow Initiation Recommendations Modified Barium Swallow/Cookie Swallow Recommended: Yes Swallowing Treatment: Yes Diet Texture Recommendations Solids: Easy to Chew (Level 7) Liquids: Thin (Level 0) Safety Saftey Precautions/Swallowing Recommendations (Check all that Apply): Small Sips & Bites when Eating and Alternate Liquids & Solids Results Swallowing Within Normal Limits: No Swallowing Diagnosis: Oropharyngeal Phase Dysphagia (R13.12) Objective Oral Motor Oral Status Dentition: Missing Teeth Additional: approximately 3 missing her patient. Labial Impairment: WNL Pucker: WNL Retraction: WNL Alternating Pucker/Retraction: WNL Involuntary Movement noted: No Lingual Impairment: WNL Protrusion: WNL Retraction: WNL Lateralization: WNL Involuntary Movement: No Jaw Impairment: WNL Involuntary Movement: No Respiratory Status Respiratory Status: Room Air Reference: Neuro-QoL instrument Radiation Oncology Patient Plan Plan Plan: Patient presents with possible oropharyngeal dysphagia with MBSS recommended to determine deficits objectively. Patient is in agreement with completion of MBSS and goals added as appropriate after testing. Recommendations Treatment Warranted: Dysphagia Progress Prognosis: Good Frequency Additional (Frequency): One time per week if patient needs training on exercises or diet changes from MBSS Duration: 4 Weeks Patient/Family Goal Patient/Family Goal: Patient stated she wants to be able to eat without thinking about small bites. Goal #1-5 Goal #1: MBSS with goals added as appropriate and necessary. Education Patient has Indicated that the Following Identified Educational Needs: Cognitively Impaired Patient Instruction Patient Education: Diagnosis, Treatment Plan and Diet Level Person Taught: Patient Response to teaching: Verbalize Understanding
--- NOTE | 2025-08-10 09:25 | HP.SP.DC_ITS ---
ST Discharge Summary Discharged: Discharge: Em Wu is discharged from [facility] as of 08/10/25 due to lack of contact by patient. She was evaluated on 06/18/25 for dysphagia with next step planned to complete MBSS. Therapist obtained script and sent to scheduling. MBSS was not scheduled, and therapist left message in July to determine patient’s current abilities and if she planned to complete MBSS. No return contact by patient as of discharge. Please see initial evaluation for complete details. Thank you for allowing me to participate in the care of this patient.
== END 2025-06-18 19:00 | disposition home or self-care (01) ==
LOC: SP 11:49
PROVIDERS: PCP Internal Medicine; Referring Provider Nurse Practitioner Family; Visit Provider Nurse Practitioner Family
DX: R13.14 Dysphagia, pharyngoesophageal phase (principal); R47.1 Dysarthria and anarthria
CPT/HCPCS: 92610

== ENCOUNTER → 2025-07-24 | Outpatient (CLI) | payer MEDICARE, SELFPAY ==
[2025-07-24 14:58] LABS: Anion Gap 11 (5-15); BUN 41 mg/dL (4-19); BUN/Creat Ratio 29.9 RATIO (10-20); Calcium,Total 9.6 mg/dL (7.6-11.0); Carbon Dioxide 25.5 mmol/L (21.0-32.0); Chloride 102 mmol/L (98-108); Glucose 136 mg/dL (70-99); Potassium 3.8 mmol/L (3.3-5.1)
== END | disposition home or self-care (01) ==
LOC: LAB 13:49
PROVIDERS: PCP Internal Medicine; Referring Provider Nurse Practitioner Family; Visit Provider Nurse Practitioner Family
DX: N18.32 Chronic kidney disease, stage 3b (principal); R06.02 Shortness of breath
CPT/HCPCS: 36415; 80048